=== PATIENT | male | born 1945 | race Caucasian/White ===

== ENCOUNTER → 2016-10-24 | Outpatient (CLI) | payer MEDICARE, BC ==
[2016-10-24 08:03] LABS: CH 33.5; CHCM 33.6; HDW 2.38; HGB 15.9 gm/dL (13.0-17.5); MCH 33.1 pg (25.0-35.0); MCHC 33.1 g/dL (31.0-37.0); MCV 100.1 fL (80.0-100.0); Mean Platelet Volume 6.9; RDW 12.6 % (11.5-15.5); WBC 6.3 k/uL (3.8-10.6)
[2016-10-24 08:13] LABS: ALT 35 U/L (21-72); AST 23 U/L (17-59); Alkaline Phosphatase 84 U/L (38-126); Anion Gap 8 mmol/L; Blood Urea Nitrogen 23 mg/dL (9-20); Calcium 9.3 mg/dL (8.4-10.2); Carbon Dioxide 24 mmol/L (22-30); Chloride 107 mmol/L (98-107); Cholesterol 193 mg/dL (<200); Glucose 97 mg/dL (74-99); HDL Cholesterol 76 mg/dL (40-60); Non-African American GFR(MDRD) >60 (>60 ml/min/1.73 sqM); Potassium 4.1 mmol/L (3.5-5.1); Sodium 139 mmol/L (137-145); Total Protein 6.8 g/dL (6.3-8.2); Triglycerides 64 mg/dL (<150)
== END | disposition home or self-care (01) ==
LOC: LABWHC1 07:30
PROVIDERS: ATTEND Internal Medicine
DX: I11.9 Hypertensive heart disease without heart failure (principal); I48.91 Unspecified atrial fibrillation; E78.2 Mixed hyperlipidemia
CPT/HCPCS: 36415; 80053; 80061; 84439; 84443; 85027

== ENCOUNTER 2016-11-04 12:04 | Emergency (ER) | payer MEDICARE, BC ==
[2016-11-04 12:19] VITALS: RESP 16
--- NOTE | 2016-11-04 14:02 | ED ---
General Adult HPI - General Chief complaint: Extremity Problem,Nontraumatic Stated complaint: Poss blood clot, Swollen leg Time Seen by Provider: 11/04/16 12:30 Source: patient, RN notes reviewed Mode of arrival: ambulatory Limitations: no limitations - History of Present Illness Initial comments: This is a 71-year-old male who presents emergency department stating that about a week ago he was kneeling on his left knee and he is on Xarelto Plavix. Patient states after that he started having some swelling to the anterior aspect of his kneecap patient states he felt as though there was fluid underneath it and as the week progressed the whole leg started to swell and he started getting bruising around his ankle both on the medial and lateral aspect of the medial aspect was much worse. Patient states he can bend the leg does not sore but feels tight because of the swelling he denies any blunt trauma to the leg. Patient denies any fevers. Patient denies any redness. Patient states that the leg feels tight but not particularly painful. - Related Data Home Medications Medication Instructions Recorded Confirmed HYDROcodone/APAP 7.5-325MG [[place] 1 tab PO Q6HR PRN 04/06/14 11/04/16 7.5] amLODIPine [Norvasc] 5 mg PO DAILY 04/06/14 11/04/16 Amiodarone [Cordarone] 200 mg PO DAILY 11/04/16 11/04/16 Aspirin EC [Ecotrin Low Dose] 81 mg PO DAILY 11/04/16 11/04/16 Enalapril [Vasotec] 20 mg PO DAILY 11/04/16 11/04/16 Mirabegron [Myrbetriq] 50 mg PO DAILY 11/04/16 11/04/16 Rivaroxaban [Xarelto] 15 mg PO QAM 11/04/16 11/04/16 Sertraline [Zoloft] 50 mg PO DAILY 11/04/16 11/04/16 Previous Rx's Medication Instructions Recorded Nitroglycerin Sl Tabs [Nitrostat] 0.4 mg SUBLINGUAL Q5M PRN #30 tab 05/13/14 Allergies Allergy/AdvReac Type Severity Reaction Status Date / Time No Known Allergies Allergy Verified 11/04/16 12:18 Review of Systems ROS Statement: Those systems with pertinent positive or pertinent negative responses have been documented in the HPI. ROS Other: All systems not noted in ROS Statement are negative. Past Medical History Past Medical History: Atrial Fibrillation, CVA/TIA, Hypertension Additional Past Medical History / Comment(s): 05/12/14 PT HERE TODAY FOR CARDIAC CATH AND STENT PLACEMENT IN LAD. OTHER HZ; PT HAS HX OF VTACH History of Any Multi-Drug Resistant Organisms: None Reported Past Surgical History: Heart Catheterization With Stent, Hernia Repair Additional Past Surgical History / Comment(s): 05/12/14 CARDIAC CATH WITH STENT TO LAD. Past Anesthesia/Blood Transfusion Reactions: No Reported Reaction Additional Past Anesthesia/Blood Transfusion Reaction / Comment(s): PT NEVER HAS HAD A BLOOD TRANSFUSION. Date of Last Stent Placement:: 05/12/14 Past Psychological History: No Psychological Hx Reported Additional Psychological History / Comment(s): PT LIVES AT HOME WITH OF 46YRS. HE IS RETIRED. HE IS INDEPENDENT. 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 Smoking Status: Former smoker Past Alcohol Use History: None Reported Past Drug Use History: None Reported - Past Family History Mother Family Medical History: Cancer Additional Family Medical History / Comment(s): COLON CA @ AGE 92 Father Family Medical History: CVA/TIA Additional Family Medical History / Comment(s): FATHER AT AGE 93YRS OF CVA General Exam - General Exam Comments Initial Comments: GENERAL Patient is well-developed and well-nourished. Patient is in mild distress. EYES Patient's pupils are equal and round. Extraocular motion is intact SKIN Unremarkable NEURO The patient is alert and oriented 3 PYSCH Patient has normal interpersonal interactions. MUSCULOSKELETAL Patient's left leg is edematous from the knee down there is ecchymosis to the medial lateral aspect of the lower foot patient also has slight edema of the whole leg. Patient is full range of motion at the knee there is no area of erythema. Patient has dorsal pedis pulses Limitations: no limitations Course Vital Signs 11/04/16 11/04/16 12:14 14:35 Temperature 98.4 F Pulse Rate 66 64 Respiratory 16 16 Rate Blood Pressure 126/75 165/77 O2 Sat by Pulse 95 100 Oximetry Medical Decision Making - Medical Decision Making Ultrasound showed no DVT. Hemoglobin is normal platelet is were normal and INR was normal. X-ray of the ankle and knee were normal as well - Lab Data Result diagrams: 11/04/16 14:10 Lab Results 11/04/16 11/04/16 Range/Units 14:10 14:10 WBC 8.1 (3.8-10.6) k/uL RBC 4.57 (4.30-5.90) m/uL Hgb 15.3 (13.0-17.5) gm/dL Hct 43.5 (39.0-53.0) % MCV 95.2 (80.0-100.0) fL MCH 33.4 (25.0-35.0) pg MCHC 35.1 (31.0-37.0) g/dL RDW 12.3 (11.5-15.5) % Plt Count 206 (150-450) k/uL Neutrophils % 78 % Lymphocytes % 13 % Monocytes % 7 % Eosinophils % 1 % Basophils % 0 % Neutrophils # 6.3 (1.3-7.7) k/uL Lymphocytes # 1.0 (1.0-4.8) k/uL Monocytes # 0.6 (0-1.0) k/uL Eosinophils # 0.1 (0-0.7) k/uL Basophils # 0.0 (0-0.2) k/uL PT 11.9 (9.0-12.0) sec INR 1.2 (<1.1) APTT 28.6 (22.0-30.0) sec Disposition Clinical Impression: Traumatic hematoma of knee Disposition: HOME SELF-CARE Condition: Good Instructions: Hematoma (ED) Additional Instructions: Patient should follow-up with primary medical care doctor. Patient stopped Xarelto the next few days. Patient should elevate leg above the heart. Referrals: Anderson Kumar MD [Primary Care Provider] - 1-2 days Time of Disposition: 15:14
[2016-11-04 14:31] LABS: Basophils % (A) 0 %; CH 33.5; CHCM 35.3; Eosinophils # (A) 0.1 k/uL (0-0.7); Eosinophils % (A) 1 %; HCT 43.5 % (39.0-53.0); HDW 2.57; HGB 15.3 gm/dL (13.0-17.5); Luc # (Auto) 0.17; Luc % (Auto) 2; Lymphocytes % (A) 13 %; MCH 33.4 pg (25.0-35.0); MCHC 35.1 g/dL (31.0-37.0); MCV 95.2 fL (80.0-100.0); Mean Platelet Volume 6.6; Monocytes # (A) 0.6 k/uL (0-1.0); Monocytes % (A) 7 %; Neutrophils # (A) 6.3 k/uL (1.3-7.7); Neutrophils % (A) 78 %; RBC 4.57 m/uL (4.30-5.90); RDW 12.3 % (11.5-15.5); WBC 8.1 k/uL (3.8-10.6); WBC (Perox) 7.82
--- NOTE | 2016-11-04 14:34 | XR ---
EXAMINATION TYPE: XR knee limited LT DATE OF EXAM: 11/04/2016 CLINICAL HISTORY: Pain and swelling. TECHNIQUE: Three views of the left knee are obtained. COMPARISON: None. FINDINGS: There is no acute fracture/dislocation evident in left knee. Mild to moderate joint space loss patellofemoral and medial tibiofemoral compartments is seen. Mild diffuse subcutaneous edema is present. Vascular calcification posterior soft tissue is noted. IMPRESSION: There is no acute fracture or dislocation in the left knee.
[2016-11-04 14:37] LABS: INR 1.2 (<1.1); Partial Thromboplastin Time 28.6 sec (22.0-30.0); Prothrombin Time 11.9 sec (9.0-12.0)
--- NOTE | 2016-11-04 14:42 | XR ---
Limited left ankle HISTORY: Swelling 3 views of the left ankle No comparisons There is soft tissue swelling. Joint space, alignment, bone mineralization is maintained. There is no fracture or dislocation. There are probable vascular calcifications present. IMPRESSION: No acute bony abnormality. Soft tissue swelling.
--- NOTE | 2016-11-04 15:15 | US ---
EXAMINATION TYPE: US venous doppler duplex LE LT DATE OF EXAM: 11/04/2016 3:00 PM COMPARISON: NONE CLINICAL HISTORY: Left lower leg and knee swelling for 2 days. SIDE PERFORMED: Left TECHNIQUE: The lower extremity deep venous system is examined utilizing real time linear array sonog zach with graded compression, doppler sonography and color-flow sonography. VESSELS IMAGED: External Iliac Vein (EIV) Common Femoral Vein Deep Femoral Vein Greater Saphenous Vein * Femoral Vein Popliteal Vein Small Saphenous Vein * Proximal Calf Veins (* superficial vessels) Left Leg: Negative for DVT Grayscale, color doppler, spectral doppler imaging performed of the deep veins of the lower extremiti es. There is normal flow, compressibility, vascular waveforms bilaterally. IMPRESSION: No ultrasound evidence for acute DVT in the left lower extremity.
[2016-11-04 15:34] VITALS: BP 164/77; PULSE 66; TEMP 98
== END 2016-11-04 15:34 | disposition home or self-care (01) ==
LOC: EC 12:04
DX: S80.02XA Contusion of left knee, initial encounter (principal); I48.91 Unspecified atrial fibrillation; I10 Essential (primary) hypertension; Z86.73 Personal history of transient ischemic attack (TIA), and cerebral infarction without residual deficits; Z87.891 Personal history of nicotine dependence; Z79.01 Long term (current) use of anticoagulants; Z79.82 Long term (current) use of aspirin; Z79.899 Other long term (current) drug therapy; X58.XXXA Exposure to other specified factors, initial encounter
CPT/HCPCS: 36415; 85025; 85610; 85730; 99284

== ENCOUNTER → 2017-02-17 | Outpatient (CLI) | payer MEDICARE, BC | END | disposition home or self-care (01) | LOC: LABWHC1 07:41 | PROVIDERS: ATTEND Internal Medicine Cardiovascular Disease | DX: Z00.01 Encounter for general adult medical examination with abnormal findings (principal); E78.2 Mixed hyperlipidemia | CPT/HCPCS: 36415; 80061; 82550; 84439; 84443; 84450; 84460 ==

== ENCOUNTER → 2017-10-15 | Outpatient (CLI) | payer MEDICARE, BC ==
[2017-10-15 07:39] LABS: HCT 48.2 % (39.0-53.0); HGB 16.3 gm/dL (13.0-17.5); MCH 32.5 pg (25.0-35.0); MCHC 33.9 g/dL (31.0-37.0); Mean Platelet Volume 7.1; Platelet Count 233 k/uL (150-450); RBC 5.02 m/uL (4.30-5.90); RDW 12.5 % (11.5-15.5); WBC 7.7 k/uL (3.8-10.6)
[2017-10-15 07:55] LABS: Albumin 4.3 g/dL (3.5-5.0); Calcium 9.7 mg/dL (8.4-10.2); Potassium 4.3 mmol/L (3.5-5.1); Total Bilirubin 1.6 mg/dL (0.2-1.3); Total Protein 6.8 g/dL (6.3-8.2)
[2017-10-15 08:07] LABS: T4, Free (Free Thyroxine) 2.05 ng/dL (0.78-2.19)
== END | disposition home or self-care (01) ==
LOC: LABWHC1 07:11
PROVIDERS: ATTEND Internal Medicine
DX: I48.0 Paroxysmal atrial fibrillation (principal); I11.9 Hypertensive heart disease without heart failure; I63.50 Cerebral infarction due to unspecified occlusion or stenosis of unspecified cerebral artery; I25.10 Atherosclerotic heart disease of native coronary artery without angina pectoris; Z79.899 Other long term (current) drug therapy
CPT/HCPCS: 36415; 80053; 80061; 84439; 84443; 85027

== ENCOUNTER → 2018-10-07 | Outpatient (CLI) | payer MEDICARE, BC ==
--- NOTE | 2018-10-09 07:36 | MR ---
EXAMINATION TYPE: MR Prostate wo/w con DATE OF EXAM: 10/07/2018 COMPARISON: None IMAGE QUALITY: Good. INDICATION: Prostate cancer PSA: 8.13 ng/ml on August 20, 2018 and 10.70 on April 27, 2018 Recent Biopsy and Date: May 22, 2018 Pathology Report (If Applicable): Right base [place] score 3+4 = 7 10% tumor 1 mm. Right apex Birdie score 3+4 = 7 tumor 20% and size 2 mm. Left lateral mid Birdie score 3+3 = 6 tumor size 20% and siz e 2 mm. Left mid [place] score 3+4 = 7, 10% tissue 1 mm size TECHNIQUE: Examination was performed using a 3T MRI without an endorectal coil. Multiparametric imaging was perf ormed with T2 mutliplanar sequences, axial diffusion weighted imaging and dynamic contrast enhanced i maging, utilizing 10 mL intravenous Gadavist gadolinium contrast. FINDINGS: There is no clinically significant cancer identified. PROSTATE VOLUME: 6.0 cm SI x 4.1 cm AP x 4.6 cm LR Vol= 56.60 cc PSA DENSITY: 6.792 ng/ml/cc Prostate gland is overall enlarged in size. Capsule is maintained. Seminal vesicles are felt within n ormal limits. No suspicious adjacent adenopathy is seen. Peripheral zone shows some indistinct hypointense areas on ADC mapping. No suspicious areas of at stoney st mild to moderate hypointense signal with increased signal on diffusion-weighted imaging is present . Transitional zone shows heterogeneity and enlargement with area of heterogeneous signal with obscured margins involving the anterior right base near the anterior fibromuscular stroma seen best coronal i mages 10 and 11 measuring subcentimeter in size without suspicious enhancement on dynamic postcontras t images. Bladder shows overall mild trabeculation without suspicious wall thickening. Visualized osseous struc tures are intact. No concerning pelvic fluid collection suspicious bowel dilatation is noted. IMPRESSION: A focus of clinically significant cancer is not identified. Highest Assessment Category: 3 MRI Stage: T 1C N0 M0 based on review of pelvic images. False negative rates for MRI range from 5-20% depending on risk profile. Assessment Categories: 1 ? Very low (clinically significant cancer is highly unlikely to be present) 2 ? Low (clinically significant cancer is unlikely to be present) 3 ? Intermediate (the presence of clinically significant cancer is equivocal) 4 ? High (clinically significant cancer is likely to be present) 5 ? Very high (clinically significant cancer is highly likely to be present)
== END ==
LOC: RADMRIMAIN 07:13
PROVIDERS: ATTEND Radiology Radiation Oncology
DX: Z08 Encounter for follow-up examination after completed treatment for malignant neoplasm (principal); Z85.46 Personal history of malignant neoplasm of prostate; Z87.891 Personal history of nicotine dependence
CPT/HCPCS: 72197; A9585

== ENCOUNTER → 2018-10-30 | Outpatient (CLI) | payer MEDICARE, BC ==
[2018-10-30 08:32] LABS: HCT 46.4 % (39.0-53.0); HGB 15.1 gm/dL (13.0-17.5); MCH 31.2 pg (25.0-35.0); MCHC 32.6 g/dL (31.0-37.0); MCV 95.6 fL (80.0-100.0); Mean Platelet Volume 7.2; Platelet Count 219 k/uL (150-450); RBC 4.85 m/uL (4.30-5.90); RDW 13.9 % (11.5-15.5); WBC 7.2 k/uL (3.8-10.6)
[2018-10-30 17:25] LABS: Albumin 4.1 g/dL (3.80-4.90); Albumin/Globulin Ratio 2.16 (1.60-3.17); Anion Gap 4.2 mmol/L (4.00-12.00); Calcium 9.2 mg/dL (8.7-10.3); Carbon Dioxide 27.8 mmol/L (21.6-31.8); Globulin 1.9 g/dL (1.6-3.3); Potassium 4.2 mmol/L (3.5-5.5); Total Bilirubin 0.9 mg/dL (0.2-1.2)
[2018-10-30 17:32] LABS: T4, Free (Free Thyroxine) 1.4 ng/dL (0.80-1.80)
== END | disposition home or self-care (01) ==
LOC: LABWHC1 07:21
PROVIDERS: ATTEND Internal Medicine
DX: Z00.00 Encounter for general adult medical examination without abnormal findings (principal); K21.0 Gastro-esophageal reflux disease with esophagitis; E78.2 Mixed hyperlipidemia; I11.9 Hypertensive heart disease without heart failure; I63.50 Cerebral infarction due to unspecified occlusion or stenosis of unspecified cerebral artery
CPT/HCPCS: 36415; 80053; 80061; 84439; 84443; 85027

== ENCOUNTER → 2018-12-09 | Outpatient (CLI) | payer MEDICARE, BC ==
[2018-12-09 10:58] LABS: Basophils % (A) 0 %; Eosinophils # (A) 0.1 k/uL (0-0.7); Eosinophils % (A) 2 %; HGB 15.2 gm/dL (13.0-17.5); Lymphocytes % (A) 17 %; MCH 32.1 pg (25.0-35.0); MCHC 33.1 g/dL (31.0-37.0); MCV 97.1 fL (80.0-100.0); Mean Platelet Volume 6.8; Monocytes # (A) 0.6 k/uL (0-1.0); Monocytes % (A) 11 %; Neutrophils # (A) 3.6 k/uL (1.3-7.7); Neutrophils % (A) 66 %; Platelet Count 205 k/uL (150-450); RBC 4.73 m/uL (4.30-5.90); RDW 12.9 % (11.5-15.5); WBC 5.5 k/uL (3.8-10.6)
[2018-12-09 11:08] LABS: Calcium 9.4 mg/dL (8.4-10.2); Potassium 4.3 mmol/L (3.5-5.1)
== END | disposition home or self-care (01) ==
LOC: LABPAT 09:57
PROVIDERS: ATTEND Urology
DX: Z01.812 Encounter for preprocedural laboratory examination (principal); C61 Malignant neoplasm of prostate; Z79.899 Other long term (current) drug therapy
CPT/HCPCS: 36415; 80048; 85025

== ENCOUNTER 2018-12-11 13:25 | Day surgery (SDC) | payer MEDICARE, BC ==
--- NOTE | 2018-11-18 18:21 | P.GSHP ---
History of Present Illness H&P Date: 11/18/18 Chief Complaint: Prostate cancer The patient is a 73-year-old white male with recently diagnosed prostate cancer. His PSA level was most recently 8.13, though was previously higher. 4 of 12 prostate biopsies have shown [place] 6/7 adenocarcinoma. He has elected to be treated with IMRT. He now comes for placement of gold fiducial markers and SpaceOAR hydrogel implant. - Genitourinary (Male) Genitourinary: Reports urinary frequency Past Medical History Past Medical History: Atrial Fibrillation, CVA/TIA, Hypertension Additional Past Medical History / Comment(s): 05/12/14 PT HERE TODAY FOR CARDIAC CATH AND STENT PLACEMENT IN LAD. OTHER HZ; PT HAS HX OF VTACH History of Any Multi-Drug Resistant Organisms: None Reported Past Surgical History: Heart Catheterization With Stent, Hernia Repair Additional Past Surgical History / Comment(s): 05/12/14 CARDIAC CATH WITH STENT TO LAD. Past Anesthesia/Blood Transfusion Reactions: No Reported Reaction Additional Past Anesthesia/Blood Transfusion Reaction / Comment(s): PT NEVER HAS HAD A BLOOD TRANSFUSION. Date of Last Stent Placement:: 05/12/14 Past Psychological History: No Psychological Hx Reported Additional Psychological History / Comment(s): PT LIVES AT HOME WITH OF 46YRS. HE IS RETIRED. HE IS INDEPENDENT. 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 Smoking Status: Former smoker Past Alcohol Use History: None Reported Past Drug Use History: None Reported - Past Family History Mother Family Medical History: Cancer Additional Family Medical History / Comment(s): COLON CA @ AGE 92 Father Family Medical History: CVA/TIA Additional Family Medical History / Comment(s): FATHER AT AGE 93YRS OF CVA Medications and Allergies Home Medications Medication Instructions Recorded Confirmed Type HYDROcodone/APAP 7.5-325MG [[place] 1 tab PO Q6HR PRN 04/06/14 11/04/16 History 7.5] amLODIPine [Norvasc] 5 mg PO DAILY 04/06/14 11/04/16 History Nitroglycerin Sl Tabs [Nitrostat] 0.4 mg SUBLINGUAL Q5M PRN #30 tab 05/13/14 11/04/16 Rx Amiodarone [Cordarone] 200 mg PO DAILY 11/04/16 11/04/16 History Aspirin EC [Ecotrin Low Dose] 81 mg PO DAILY 11/04/16 11/04/16 History Enalapril [Vasotec] 20 mg PO DAILY 11/04/16 11/04/16 History Mirabegron [Myrbetriq] 50 mg PO DAILY 11/04/16 11/04/16 History Rivaroxaban [Xarelto] 15 mg PO QAM 11/04/16 11/04/16 History Sertraline [Zoloft] 50 mg PO DAILY 11/04/16 11/04/16 History Allergies Allergy/AdvReac Type Severity Reaction Status Date / Time No Known Allergies Allergy Verified 11/04/16 12:18 Surgical - Exam - General well developed, well nourished, no distress - Respiratory normal respiratory effort, clear to auscultation - Cardiovascular Rhythm: regular Abnormal Heart Sounds: no systolic murmur, no diastolic murmur, no rub, no S3 Gallop, no S4 Gallop, no click, no other - Psychiatric oriented to time, oriented to person, oriented to place, speech is normal, memory intact Assessment and Plan (1) Adenocarcinoma of prostate Status: Acute Code(s): C61 - MALIGNANT NEOPLASM OF PROSTATE SNOMED Code(s): 399208254 Plan: The patient will undergo placement of fiducial gold markers and SpaceOAR hydrogel implant. The procedure has been reviewed in detail with the patient, including the rationale and potential risks associated with this. Risks include anesthesia, bleeding, infection, and rectal perforation.
[2018-12-09 13:15] VITALS: BMI 27.2
[~2018-12-11 13:25] MED LIST: HYDROmorphone 0.5 MG/0.5 ML SYRINGE IVP PRN; MIDAZOLAM 2 MG/2 ML VIAL IV PRN
[2018-12-11] MEDS: LACTATED RINGERS 1,000 ML IV SCH ×2 (13:34→13:44)
[2018-12-11 13:44] VITALS: RESP 16; TEMP 98.5
[2018-12-11] MEDS ORDERED: LIDOCAINE 2% (PF) 20 MG/ML 10 ML AMP SQ ONE ×2 (14:00)
[2018-12-11 15:27] VITALS: PULSE 59
--- NOTE | 2018-12-11 15:29 | P.OP ---
Date of Procedure: 12/11/18 Preoperative Diagnosis: Adenocarcinoma of the prostate Postoperative Diagnosis: Same Procedure(s) Performed: SpaceOAR Hydrogel Implant with Placement of Gold Fiducial Markers. Anesthesia: MAC Surgeon: Anthony Cottrell Estimated Blood Loss (ml): 5 IV fluids (ml): 800 Pathology: none sent Condition: stable Disposition: PACU Indications for Procedure: The patient is a 73-year-old white male with recently diagnosed prostate cancer. His PSA level was most recently 8.13, though was previously higher. 4 of 12 prostate biopsies have shown [place] 6/7 adenocarcinoma. He has elected to be treated with IMRT. He now comes for placement of gold fiducial markers and SpaceOAR hydrogel implant. Operative Findings: Appropriate placement of gold fiducial markers. Description of Procedure: The patient was taken to the operating room and placed in the dorsolithotomy position, with his legs supported in Edni stirrups. The external genitalia was prepped and draped sterilely. Using a spinal needle, 1% lidocaine without epinephrine was injected subcutaneously within the perineum in the midline. The Bruel and Kjaer transrectal ultrasound probe was placed intrarectally. The prostate was imaged. The probe was then placed within the stabilizing stand. The spinal needle was then advanced under ultrasonic guidance to the level of the urogenital diaphragm, and lidocaine was used to infiltrate the tissues as the needle was withdrawn. Under ultrasonic guidance, using both axial and sagittal imaging, needles containing the gold fiducial markers were advanced to the base and apex of the left prostatic lobe, and the markers were implanted as the needles were withdrawn. A third marker was implanted posteriorly within the right prostatic lobe at the mid gland level, using an identical technique. Next, the SpaceOAR needle was passed through the midline of the perineum, 1-2 cm anterior to the anal opening. The needle was slowly advanced under ultrasonic guidance until the needle tip was located within the fat plane between the prostate and rectum, at the level of the mid prostate gland. The needle was confirmed to be midline on the axial imaging. A small amount of normal saline was injected for hydrodissection. Next, the SpaceOAR components were mixed and loaded into the Y connector per protocol. The Y connector was then connected to the needle, and the components were injected slowly over a course of approximately 12 seconds. Significant distance was created between the prostate and rectum, as desired. It should be noted that at no point was there any concern of rectal perforation. The needle was withdrawn, as well as the transrectal ultrasound probe, and the procedure was terminated. The patient tolerated the procedure well and was taken to the recovery room in stable condition.
[2018-12-11 15:44] VITALS: BP 133/75
== END 2018-12-11 15:56 | disposition home or self-care (01) ==
LOC: OR 13:25
PROVIDERS: ATTEND Urology
DX: C61 Malignant neoplasm of prostate (principal); I48.91 Unspecified atrial fibrillation; Z86.73 Personal history of transient ischemic attack (TIA), and cerebral infarction without residual deficits; I10 Essential (primary) hypertension; Z95.5 Presence of coronary angioplasty implant and graft; Z87.891 Personal history of nicotine dependence; Z80.0 Family history of malignant neoplasm of digestive organs; Z79.01 Long term (current) use of anticoagulants; Z79.82 Long term (current) use of aspirin; Z79.899 Other long term (current) drug therapy; Z79.891 Long term (current) use of opiate analgesic
CPT/HCPCS: 55876; 55874; C1713; J2001; J0690

== ENCOUNTER → 2018-12-17 | Outpatient (CLI) | payer MEDICARE, BC | END | disposition home or self-care (01) | LOC: LABWHC1 09:32 | PROVIDERS: ATTEND Radiology Radiation Oncology | DX: Z00.00 Encounter for general adult medical examination without abnormal findings (principal); Z87.891 Personal history of nicotine dependence; C61 Malignant neoplasm of prostate | CPT/HCPCS: 36415; 84153 ==

== ENCOUNTER 2019-03-01 14:09 | Inpatient (IN) | payer MEDICARE, BC ==
[2019-03-01] MEDS ORDERED: SODIUM CHLORIDE 0.9% 1,000 ML IV STA (14:45)
[2019-03-01] MEDS ORDERED: DIPHENOX-ATROP 2.5-0.025 MG 1 EACH TAB PO STA (14:45)
--- NOTE | 2019-03-01 14:47 | ED ---
General Adult HPI - General Chief complaint: Recheck/Abnormal Lab/Rx Stated complaint: abn labs Time Seen by Provider: 03/01/19 14:15 Source: patient, RN notes reviewed Mode of arrival: ambulatory Limitations: no limitations - History of Present Illness Initial comments: This a 73-year-old male who presents emergency department stating that he has had diarrhea for 2 days. Patient states he recently had radiation for prostate cancer. Patient states the diarrhea started yesterday and continues today. Patient states she went to the urgent care and Tylenol and they told him after they gave him saline and that he needed to be followed up at the emergency department. Patient denies any pain. Patient denies any fever chills. Patient denies any blood in his stool. Patient states ever since he had the radiation he does have a little dysuria but he is been told he has had no infection. Patient denies any back pain. Patient denies any other problems at this time. Patient denies any recent antibiotic use - Related Data Home Medications Medication Instructions Recorded Confirmed amLODIPine [Norvasc] 5 mg PO DAILY 04/06/14 03/01/19 Amiodarone [Cordarone] 200 mg PO DAILY 11/04/16 03/01/19 Aspirin EC [Ecotrin Low Dose] 81 mg PO DAILY 11/04/16 03/01/19 Enalapril [Vasotec] 20 mg PO DAILY 11/04/16 03/01/19 Rivaroxaban [Xarelto] 15 mg PO QAM 11/04/16 03/01/19 Atorvastatin [Lipitor] 80 mg PO DAILY 03/01/19 03/01/19 traMADol HCL 50 mg PO BID PRN 03/01/19 03/01/19 Allergies Allergy/AdvReac Type Severity Reaction Status Date / Time No Known Allergies Allergy Verified 03/01/19 14:40 Review of Systems ROS Statement: Those systems with pertinent positive or pertinent negative responses have been documented in the HPI. ROS Other: All systems not noted in ROS Statement are negative. Past Medical History Past Medical History: Atrial Fibrillation, CVA/TIA, Hypertension Additional Past Medical History / Comment(s): PT HAS HX OF VTACH, prostate ca - radiation last 3 weeks ago History of Any Multi-Drug Resistant Organisms: None Reported Past Surgical History: Heart Catheterization With Stent, Hernia Repair Additional Past Surgical History / Comment(s): STENT TO LAD. Past Anesthesia/Blood Transfusion Reactions: No Reported Reaction Additional Past Anesthesia/Blood Transfusion Reaction / Comment(s): PT NEVER HAS HAD A BLOOD TRANSFUSION. Date of Last Stent Placement:: 05/12/14 Past Psychological History: No Psychological Hx Reported Smoking Status: Former smoker Past Alcohol Use History: None Reported Past Drug Use History: None Reported - Past Family History Mother Family Medical History: Cancer Additional Family Medical History / Comment(s): COLON CA @ AGE 92 Father Family Medical History: CVA/TIA Additional Family Medical History / Comment(s): FATHER AT AGE 93YRS OF CVA General Exam - General Exam Comments Initial Comments: GENERAL: Patient is well-developed and well-nourished. Patient is nontoxic and well- hydrated and is in mild distress. ENT: Neck is soft and supple. No significant lymphadenopathy is noted. Oropharynx is clear. Moist mucous membranes. Neck has full range of motion without eliciting any pain. EYES: The sclera were anicteric and conjunctiva were pink and moist. Extraocular movements were intact and pupils were equal round and reactive to light. Eyelids were unremarkable. PULMONARY: Unlabored respirations. Good breath sounds bilaterally. No audible rales rhonchi or wheezing was noted. CARDIOVASCULAR: There is a regular rate and rhythm without any murmurs gallops or rubs. ABDOMEN: Soft and nontender with normal bowel sounds. No palpable organomegaly was noted. There is no palpable pulsatile mass. SKIN: Skin is clear with no lesions or rashes and otherwise unremarkable. NEUROLOGIC: Patient is alert and oriented x3. Cranial nerves II through XII are grossly intact. Motor and sensory are also intact. Normal speech, volume and content. Symmetrical smile. MUSCULOSKELETAL: Normal extremities with adequate strength and full range of motion. No lower extremity swelling or edema. No calf tenderness. LYMPHATICS: No significant lymphadenopathy is noted PSYCHIATRIC: Normal psychiatric evaluation. Limitations: no limitations Course Vital Signs 03/01/19 03/01/19 03/01/19 14:13 15:20 18:00 Temperature 97.9 F 102.7 F H Pulse Rate 81 98 Pulse Rate [ 83 Sitting] Pulse Rate [ 86 Standing] Pulse Rate [ 77 Supine] Respiratory 18 20 20 Rate Blood Pressure 108/56 151/70 Blood Pressure 112/67 [Sitting] Blood Pressure 98/62 [Standing] Blood Pressure 108/62 [Supine] O2 Sat by Pulse 98 99 98 Oximetry 03/01/19 19:00 Temperature Pulse Rate 98 Pulse Rate [ Sitting] Pulse Rate [ Standing] Pulse Rate [ Supine] Respiratory 22 Rate Blood Pressure 110/58 Blood Pressure [Sitting] Blood Pressure [Standing] Blood Pressure [Supine] O2 Sat by Pulse 98 Oximetry Medical Decision Making - Medical Decision Making I went into the room to talk to the patient about his lab values. Patient was shaking under 3 blankets. I took his temperature was 102.8. After I gave the patient Motrin time he was feeling better. I'll start the patient on Levaquin secondary to his infectious diarrhea. I spoke with Dr. Iniguez he was in agreement with this were keeping the patient overnight and hydrating and keeping his temperature down and reevaluated the patient in the morning. I repalpated the patient's abdomen he had no tenderness whatsoever. - Lab Data Result diagrams: 03/01/19 14:55 03/01/19 14:55 Lab Results 03/01/19 03/01/19 03/01/19 Range/Units 14:55 14:55 15:10 WBC 12.3 H (3.8-10.6) k/uL RBC 4.26 L (4.30-5.90) m/uL Hgb 14.1 (13.0-17.5) gm/dL Hct 40.2 (39.0-53.0) % MCV 94.4 (80.0-100.0) fL MCH 33.1 (25.0-35.0) pg MCHC 35.1 (31.0-37.0) g/dL RDW 12.7 (11.5-15.5) % Plt Count 164 (150-450) k/uL Neutrophils % 93 % Lymphocytes % 2 % Monocytes % 4 % Eosinophils % 1 % Basophils % 0 % Neutrophils # 11.4 H (1.3-7.7) k/uL Lymphocytes # 0.2 L (1.0-4.8) k/uL Monocytes # 0.5 (0-1.0) k/uL Eosinophils # 0.1 (0-0.7) k/uL Basophils # 0.0 (0-0.2) k/uL Sodium 132 L (137-145) mmol/L Potassium 3.6 (3.5-5.1) mmol/L Chloride 103 (98-107) mmol/L Carbon Dioxide 20 L (22-30) mmol/L Anion Gap 9 mmol/L BUN 22 H (9-20) mg/dL Creatinine 1.22 (0.66-1.25) mg/dL Est GFR (CKD-EPI)AfAm 68 (>60 ml/min/1.73 sqM) Est GFR (CKD-EPI)NonAf 59 (>60 ml/min/1.73 sqM) Glucose 111 H (74-99) mg/dL Plasma Lactic Acid [place] (0.7-2.0) mmol/L Calcium 8.4 (8.4-10.2) mg/dL Total Bilirubin 1.2 (0.2-1.3) mg/dL AST 26 (17-59) U/L ALT 38 (21-72) U/L Alkaline Phosphatase 64 (38-126) U/L Total Protein 5.3 L (6.3-8.2) g/dL Albumin 2.9 L (3.5-5.0) g/dL Amylase <30 L (30-110) U/L Lipase 15 L (23-300) U/L Urine Color Yellow Urine Appearance Cloudy (Clear) Urine pH 5.5 (5.0-8.0) Ur Specific [place] 1.024 (1.001-1.035) Urine Protein 1+ H (Negative) Urine Glucose (UA) Negative (Negative) Urine Ketones Negative (Negative) Urine Blood Moderate H (Negative) Urine Nitrite Negative (Negative) Urine Bilirubin Negative (Negative) Urine Urobilinogen <2.0 (<2.0) mg/dL Ur Leukocyte Esterase Negative (Negative) Urine WBC 2 (0-5) /hpf Urine Bacteria Rare H (None) /hpf Hyaline Casts 32 H (0-2) /lpf Urine Mucus Many H (None) /hpf 03/01/19 Range/Units 18:32 WBC (3.8-10.6) k/uL RBC (4.30-5.90) m/uL Hgb (13.0-17.5) gm/dL Hct (39.0-53.0) % MCV (80.0-100.0) fL MCH (25.0-35.0) pg MCHC (31.0-37.0) g/dL RDW (11.5-15.5) % Plt Count (150-450) k/uL Neutrophils % % Lymphocytes % % Monocytes % % Eosinophils % % Basophils % % Neutrophils # (1.3-7.7) k/uL Lymphocytes # (1.0-4.8) k/uL Monocytes # (0-1.0) k/uL Eosinophils # (0-0.7) k/uL Basophils # (0-0.2) k/uL Sodium (137-145) mmol/L Potassium (3.5-5.1) mmol/L Chloride (98-107) mmol/L Carbon Dioxide (22-30) mmol/L Anion Gap mmol/L BUN (9-20) mg/dL Creatinine (0.66-1.25) mg/dL Est GFR (CKD-EPI)AfAm (>60 ml/min/1.73 sqM) Est GFR (CKD-EPI)NonAf (>60 ml/min/1.73 sqM) Glucose (74-99) mg/dL Plasma Lactic Acid [place] 2.7 H* (0.7-2.0) mmol/L Calcium (8.4-10.2) mg/dL Total Bilirubin (0.2-1.3) mg/dL AST (17-59) U/L ALT (21-72) U/L Alkaline Phosphatase (38-126) U/L Total Protein (6.3-8.2) g/dL Albumin (3.5-5.0) g/dL Amylase (30-110) U/L Lipase (23-300) U/L Urine Color Urine Appearance (Clear) Urine pH (5.0-8.0) Ur Specific [place] (1.001-1.035) Urine Protein (Negative) Urine Glucose (UA) (Negative) Urine Ketones (Negative) Urine Blood (Negative) Urine Nitrite (Negative) Urine Bilirubin (Negative) Urine Urobilinogen (<2.0) mg/dL Ur Leukocyte Esterase (Negative) Urine WBC (0-5) /hpf Urine Bacteria (None) /hpf Hyaline Casts (0-2) /lpf Urine Mucus (None) /hpf Disposition Clinical Impression: Infectious diarrhea Disposition: ADMITTED IP TO THIS [facility] Time of Disposition: 20:31
[2019-03-01 15:15] LABS: Basophils % (A) 0 %; Eosinophils # (A) 0.1 k/uL (0-0.7); Eosinophils % (A) 1 %; HCT 40.2 % (39.0-53.0); HGB 14.1 gm/dL (13.0-17.5); Lymphocytes # (A) 0.2 k/uL (1.0-4.8); Lymphocytes % (A) 2 %; MCH 33.1 pg (25.0-35.0); MCHC 35.1 g/dL (31.0-37.0); MCV 94.4 fL (80.0-100.0); Mean Platelet Volume 6.5; Monocytes # (A) 0.5 k/uL (0-1.0); Monocytes % (A) 4 %; Neutrophils # (A) 11.4 k/uL (1.3-7.7); Neutrophils % (A) 93 %; Platelet Count 164 k/uL (150-450); RBC 4.26 m/uL (4.30-5.90); RDW 12.7 % (11.5-15.5); WBC 12.3 k/uL (3.8-10.6)
[2019-03-01 15:18] LABS: ALT 38 U/L (21-72); AST 26 U/L (17-59); African American GFR (CKD) 68 (>60 ml/min/1.73 sqM); Albumin 2.9 g/dL (3.5-5.0); Alkaline Phosphatase 64 U/L (38-126); Amylase <30 U/L (30-110); Anion Gap 9 mmol/L; Blood Urea Nitrogen 22 mg/dL (9-20); Calcium 8.4 mg/dL (8.4-10.2); Carbon Dioxide 20 mmol/L (22-30); Chloride 103 mmol/L (98-107); Glucose 111 mg/dL (74-99); Potassium 3.6 mmol/L (3.5-5.1); Sodium 132 mmol/L (137-145); Total Bilirubin 1.2 mg/dL (0.2-1.3); Total Protein 5.3 g/dL (6.3-8.2)
[2019-03-01 15:25] LABS: Appearance,Urine Cloudy (Clear); Bacteria,Urine Rare /hpf; Bilirubin,Urine Negative (Negative); Blood,Urine Moderate (Negative); Color,Urine Yellow; Glucose,Urine (UA) Negative (Negative); Hyaline Casts,Urine 32 /lpf (0-2); Ketones,Urine Negative (Negative); Leukocyte Esterase,Urine Negative (Negative); Mucus,Urine Many /hpf; Nitrite,Urine Negative (Negative); PH, Urine 5.5 (5.0-8.0); Protein,Urine 1+ (Negative); Specific Gravity,Urine 1.024 (1.001-1.035); Urobilinogen,Urine <2.0 mg/dL (<2.0); WBC,Urine 2 /hpf (0-5)
[2019-03-01] MEDS ORDERED: ACETAMINOPHEN TAB 500 MG TAB PO STA (17:58)
[2019-03-01] MEDS ORDERED: IBUPROFEN 600 MG TAB PO STA (17:58)
[2019-03-01] MEDS ORDERED: LEVOFLOXACIN 750MG-D5W PMX 750 MG in DEXTROSE/WATER 1 150ML.BAG IVPB STA (18:11)
[2019-03-01] MEDS ORDERED: SODIUM CHLORIDE 0.9% 1,000 ML IV ONE ×2 (20:31→21:24)
[2019-03-01] MEDS ORDERED: ACETAMINOPHEN TAB 325 MG TAB PO PRN (20:32)
[2019-03-01] MEDS ORDERED: traMADol HCL 50 MG TABLET PO PRN (21:36)
--- NOTE | 2019-03-01 23:15 | XR ---
EXAMINATION TYPE: XR abdomen 2V DATE OF EXAM: 03/01/2019 COMPARISON: NONE HISTORY: Diarrhea TECHNIQUE: 3 views FINDINGS: There is some gas-filled distended small bowel in the mid abdomen. There is no sign of free air. Lung bases are clear of consolidation. There are no pathologic calcifications over the kidneys. Large bowel gas pattern is fairly normal. IMPRESSION: There is evidence for small bowel ileus.
[2019-03-02] MEDS: IBUPROFEN 600 MG TAB PO SCH ×4 (00:03→17:39)
[2019-03-02 06:25] LABS: Basophils % (A) 0 %; Eosinophils % (A) 0 %; HGB 12.8 gm/dL (13.0-17.5); Lymphocytes # (A) 0.3 k/uL (1.0-4.8); Lymphocytes % (A) 5 %; MCH 33.6 pg (25.0-35.0); MCHC 35.4 g/dL (31.0-37.0); MCV 94.8 fL (80.0-100.0); Mean Platelet Volume 6.7; Monocytes # (A) 0.4 k/uL (0-1.0); Monocytes % (A) 8 %; Neutrophils # (A) 5.1 k/uL (1.3-7.7); Neutrophils % (A) 86 %; Platelet Count 135 k/uL (150-450); RDW 12.7 % (11.5-15.5); WBC 5.9 k/uL (3.8-10.6)
[2019-03-02 06:58] LABS: Calcium 8.4 mg/dL (8.4-10.2); Potassium 3.4 mmol/L (3.5-5.1)
[2019-03-02] MEDS: RIVAROXABAN 15 MG TAB PO SCH (08:08)
[2019-03-02] MEDS: AMIODARONE 200 MG TAB PO SCH (08:08)
[2019-03-02] MEDS: ATORVASTATIN 80 MG TAB PO SCH (08:08)
[2019-03-02] MEDS ORDERED: amLODIPine 5 MG TAB PO SCH (09:00)
[2019-03-02] MEDS ORDERED: ASPIRIN 81 MG PO SCH (09:00)
[2019-03-02] MEDS ORDERED: LISINOPRIL 20 MG TAB PO SCH (09:00)
[2019-03-02] MEDS ORDERED: Potassium Replacement Protocol 1 EACH MISC MISCELLANE PRN (09:12)
[2019-03-02] MEDS: POTASSIUM CHLORIDE ER 20 MEQ TAB.ER PO SCH ×2 (09:25→10:51)
--- NOTE | 2019-03-02 14:45 | P.CRDCN ---
History of Present Illness History of present illness: This is a pleasant 73-year-old male past medical history significant for paroxysmal atrial fibrillation on long-term anticoagulation, coronary artery disease status post stent placement to the mid LAD in 2013, nonsustained ventricular tachycardia, dyslipidemia, hypertension and prostate cancer status post radiation therapy. He states he had his last round of radiation approxim ately 3 weeks ago. He presented to the hospital after a 2 day episode of persistent diarrhea. We have been asked to see him in consultation secondary to long-term anticoagulation and evidence of blood in the urine and stool. The patient denies seeing any bright red or black discoloration to his stool. He denies chest pain, shortness of breath, dizziness, palpitations. He denies any active bleeding. He is seen and examined sitting up in bed in no acute distress. No EKG obtained on admission. Current cardiac medications include Xarelto 15 mg daily, lisinopril 20 mg daily, atorvastatin 80 mg daily, aspirin 81 mg daily, amlodipine 5 mg daily and amiodarone 200 mg daily. Laboratory data reviewed, WBC 5.9, hemoglobin 12.8 down from 14.1 on admission, platelets 135, sodium 134, potassium 3.4, creatinine 1.24, lactic acid 2.7 down to 0.8. At the time of my exam: CONSTITUTIONAL: Denies fever. Denies chills. EYES: Denies blurred vision. Denies vision changes. Denies eye pain. EARS, NOSE, MOUTH & THROAT: Denies headache. Denies sore throat. Denies ear pain. CARDIOVASCULAR: Denies chest pain. Denies shortness of breath. Denies orthopnea. Denies PND. Denies palpitations. RESPIRATORY: Denies cough. GASTROINTESTINAL: Denies abdominal pain. Complains of diarrhea. Denies constipation. Denies nausea. Denies vomiting. MUSCULOSKELETAL: Denies myalgias. INTEGUMENTARY: Denies pruitis. Denies rash. NEUROLOGIC: Denies numbness. Denies tingling. Denies weakness. PSYCHIATRIC: Denies anxiety. Denies depression. ENDOCRINE: Denies fatigue. Denies weight change. Denies polydipsia. Denies poly urina. GENITOURINARY: Denies burning, hematuria or urgency with micturation. HEMATOLOGIC: Denies history of anemia. Denies bleeding. Blood pressure 136/75 heart rate 74 afebrile maintaining oxygen saturation on room air GENERAL: This is a 73-year-old male in no apparent distress at the t trina of my examination. HEENT: Head is atraumatic, normocephalic. Pupils are equal, round. Sclerae an icteric. Conjunctivae are clear. Mucous membranes of the mouth are moist. Neck is supple. There is no jugular venous distention. No carotid bruit is heard. LUNGS: Clear to auscultation no wheezes, rales or rhonchi. No chest wall tenderness is noted on palpation or with deep breathing. HEART: Regular rate and rhythm without murmurs, rubs or gallops. S1 and S2 heard. ABDOMEN: Soft, nontender. Bowel sounds are heard. No organomegaly noted. EXTREMITIES: No evidence of peripheral edema and no calf tenderness noted. VASCULAR: Radial and dorsalis pedis pulses palpated, no evidence of clubbing. NEUROLOGIC: Patient is awake, alert and oriented x3. ASSESSMENT Persistent diarrhea status post radiation for prostate cancer Positive occult blood and blood in the urine. Change in hemoglobin likely d ilutional secondary to fluid administration. Paroxysmal atrial fibrillation on long-term anticoagulation History of coronary artery disease status post stent placement to the mid LAD 2013 Nonsustained ventricular tachycardia Dyslipidemia Hypertension PLAN Continue Xarelto and discontinue aspirin. Follow hemoglobin and the morning. If his hemoglobin remains stable and there is no active bleeding continue Xarelto as previously ordered on discharge. Continue lisinopril, atorvastatin, amlodipine and amiodarone as previously ordered. Follow-up with Dr. Jackson upon discharge. Thank you kindly for this consultation. Nurse Practitioner note has been reviewed, I agree with a documented findings and plan of care. Patient was seen and examined. Past Medical History Past Medical History: Atrial Fibrillation, CVA/TIA, Hypertension Additional Past Medical History / Comment(s): PT HAS HX OF VTACH, prostate ca - radiation last 3 weeks ago History of Any Multi-Drug Resistant Organisms: None Reported Past Surgical History: Heart Catheterization With Stent, Hernia Repair Additional Past Surgical History / Comment(s): STENT TO LAD. Past Anesthesia/Blood Transfusion Reactions: No Reported Reaction Additional Past Anesthesia/Blood Transfusion Reaction / Comment(s): PT NEVER HAS HAD A BLOOD TRANSFUSION. Date of Last Stent Placement:: 05/12/14 Smoking Status: Former smoker - Past Family History Mother Family Medical History: Cancer Additional Family Medical History / Comment(s): COLON CA @ AGE 92 Father Family Medical History: CVA/TIA Additional Family Medical History / Comment(s): FATHER AT AGE 93YRS OF CVA Medications and Allergies Home Medications Medication Instructions Recorded Confirmed Type amLODIPine [Norvasc] 5 mg PO DAILY 04/06/14 03/01/19 History Amiodarone [Cordarone] 200 mg PO DAILY 11/04/16 03/01/19 History Aspirin EC [Ecotrin Low Dose] 81 mg PO DAILY 11/04/16 03/01/19 History Enalapril [Vasotec] 20 mg PO DAILY 11/04/16 03/01/19 History Rivaroxaban [Xarelto] 15 mg PO QAM 11/04/16 03/01/19 History Atorvastatin [Lipitor] 80 mg PO DAILY 03/01/19 03/01/19 History traMADol HCL 50 mg PO BID PRN 03/01/19 03/01/19 History Allergies Allergy/AdvReac Type Severity Reaction Status Date / Time No Known Allergies Allergy Verified 03/01/19 14:40 Physical Exam Vitals: Vital Signs Temp Pulse Pulse Pulse Pulse Resp BP 03/02/19 07:00 97.6 F 74 15 03/02/19 01:18 03/02/19 00:00 98.2 F 66 16 03/01/19 23:32 03/01/19 22:58 98.5 F 63 03/01/19 21:45 97.0 F L 65 19 03/01/19 21:15 99.3 F 64 18 96/58 03/01/19 19:00 98 22 110/58 03/01/19 18:00 102.7 F H 98 20 151/70 03/01/19 15:20 83 86 77 20 BP BP BP Pulse Ox 03/02/19 07:00 136/75 97 03/02/19 01:18 119/62 03/02/19 00:00 97/52 95 03/01/19 23:32 90/47 03/01/19 22:58 89/52 03/01/19 21:45 92/50 94 L 03/01/19 21:15 98 03/01/19 19:00 98 03/01/19 18:00 98 03/01/19 15:20 112/67 98/62 108/62 99 Intake and Output 03/01/19 03/02/19 03/02/19 22:59 06:59 14:59 Other: Voiding Method Toilet Toilet # Voids 2 # Bowel Movements 1 Results 03/02/19 06:12 03/02/19 06:12 Cardiac Enzymes 03/01/19 Range/Units 14:55 AST 26 (17-59) U/L CBC 03/01/19 03/02/19 Range/Units 14:55 06:12 WBC 12.3 H 5.9 (3.8-10.6) k/uL RBC 4.26 L 3.80 L (4.30-5.90) m/uL Hgb 14.1 12.8 L (13.0-17.5) gm/dL Hct 40.2 36.0 L (39.0-53.0) % Plt Count 164 135 L (150-450) k/uL Comprehensive Metabolic Panel 03/01/19 03/02/19 Range/Units 14:55 06:12 Sodium 132 L 134 L (137-145) mmol/L Potassium 3.6 3.4 L (3.5-5.1) mmol/L Chloride 103 106 (98-107) mmol/L Carbon Dioxide 20 L 22 (22-30) mmol/L BUN 22 H 22 H (9-20) mg/dL Creatinine 1.22 1.24 (0.66-1.25) mg/dL Glucose 111 H 89 (74-99) mg/dL Calcium 8.4 8.4 (8.4-10.2) mg/dL AST 26 (17-59) U/L ALT 38 (21-72) U/L Alkaline Phosphatase 64 (38-126) U/L Total Protein 5.3 L (6.3-8.2) g/dL Albumin 2.9 L (3.5-5.0) g/dL Current Medications Generic Name Dose Route Start Last Admin Trade Name Freq PRN Reason Stop Dose Admin Acetaminophen 650 mg 03/01/19 20:32 Tylenol Tab PO Q4HR PRN Fever and/ or Pain Amiodarone HCl 200 mg 03/02/19 09:00 03/02/19 08:08 Cordarone PO 200 mg DAILY NOE Administration Amlodipine Besylate 5 mg 03/02/19 09:00 03/02/19 08:08 Norvasc PO 5 mg DAILY NOE Administration Atorvastatin Calcium 80 mg 03/02/19 09:00 03/02/19 08:08 Lipitor PO 80 mg DAILY NOE Administration Ibuprofen 600 mg 03/01/19 22:00 03/02/19 13:42 Motrin PO Not Given QID NOE Lisinopril 20 mg 03/02/19 09:00 03/02/19 08:08 Zestril PO 20 mg DAILY NOE Administration Miscellaneous Information 1 each 03/02/19 09:12 Potassium Per Protocol MISCELLANE DAILY PRN Per Protocol Protocol Rivaroxaban 15 mg 03/02/19 09:00 03/02/19 08:08 Xarelto PO 15 mg QAM NOE Administration Tramadol HCl 50 mg 03/01/19 21:36 Tramadol Hcl PO BID PRN Pain Intake and Output 03/01/19 03/02/19 03/02/19 22:59 06:59 14:59 Other: Voiding Method Toilet Toilet # Voids 2 # Bowel Movements 1 03/02/19 06:12 03/02/19 06:12
--- NOTE | 2019-03-02 15:28 | HP ---
HISTORY AND PHYSICAL The patient is a 73-year-old white male, date of is 1945 and his room 459 bed. His data is NO CODE and he is 6 foot 3 inches height, weight 94.801 kg, BSA 2.24 m2, BMI 26.1 kg/m2. Allergy is unknown. CHIEF COMPLAINT: Diarrhea for the last 2 days prior to the admission, started on Friday. HISTORY OF PRESENT ILLNESS: Mr. Sang Braga who is 73-year-old white male who has man finished his radiation therapy in [facility] under care of Dr. Clayton the Radiation Oncology for his prostate cancer 2 weeks ago. However, he was doing fine and on Friday he stated hit him immediately or acutely, diarrhea and with the loose watery bowel more than 3 to 4 times and that was on Friday. It was making him a little weak. He went to the [facility]. They gave her IV fluid and sent him home. Subsequently, on Friday morning, he still have frequent runny loose bowel movement, not bloody but watery with minimal cramps and no associated nausea or vomiting and at that time, he went to the emergency room where he was seen, evaluated by Dr. Ponce Velasco in the emergency room and Dr. Velasco's note stated that he had diarrhea for 2 days and he had recently radiation for the prostate cancer and started on 03/01/2019. Patient initially denied any fever or chills; however, came out of the emergency room he spikes 102 temperature and found in the laboratory in the ER that his laboratory indicates lactic acidosis with the lactic acid was elevated at 2.7. Also we did a urinalysis in the ER and found that he had blood in the urine with hematuria and Dr. Velasco because of the underlying possibility of dehydration, he was admitted to the hospital with hydration. Subsequently as patient evaluated and found the possibility that he had possible ileus or small bowel ileus with the recurrent diarrhea and he ordered the stool for Hemoccult in the hospital and at that time found that also the stool was positive for Hemoccult as well and the x-ray of the abdomen was ordered to view and there is evidence of small bowel ileus. PAST MEDICAL HISTORY: He had a history of prostate cancer, underwent 25 treatments of radiation therapy by Dr. Clayton, the Radiation Oncology in [facility]. Patient also has underlying history of atrial fibrillation, chronic, and he is on Xarelto and we are unclear the blood in the urine as well as the blood in the stool is related to the Xarelto versus related to the radiation for the prostate with mild inflammatory process. However, the small bowel ileus was present. Patient as well still has diarrhea on the exam and with the persistent diarrhea, and the lactic acidosis, which we had already resolved with the hydration. Patient received in the ER by Dr. Rod Graves IV piggyback because of the temperature 102; however, we held any other doses until seen by the Infectious Disease with the possibility of infectious diarrhea. We consulted Gastroenterology as well as well as Cardiology for reason of the Xarelto with the presence of blood in the stools and blood in the urine. The patient has chronic atrial fibrillation, paroxysmal; however currently appeared to be sinus rhythm. The order also of the EKG which appeared to be not yet on the record. On evaluation of the laboratory was ordered today as Dr. Velasco did not order any lab. The white count was 5.9, the hemoglobin was 12.8, and it appeared to be dropped 1.3 from the presentation in the emergency room and 1.3 g of drop could be due to the hydration with the underlying dehydration. His platelet count was 135, which is mild decrease in the platelet with thrombocytopenia. His chemistry indicating sodium hyponatremic, hypokalemic and his carbon dioxide was in the metabolic acidosis corrected from yesterday to today to 22, which is normal. His BUN is 22, creatinine 1.24 with an estimated glomerular filtration rate for non- is 58, could be associated with the dehydration as well. His magnesium is normal. His plasma lactic acid venous was 2.7 on admission; however, subsequently is improved to 0.8 and repeated this morning 0.8. He has negative C difficile. The patient past history that he had cancer of the prostate. He has a history of hypertension and hypertensive heart disease, coronary artery disease, atrial fibrillation on amiodarone and on Xarelto. He has been seen in the past for colonoscopy and he was seen by Dr. 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 Seen Dr. Fajardo as well. In the past, he had a history of back pain. Patient is new to me and he has been in the past under care of Dr. Anderson Kumar and transferred to my service. His family history, he is and he is retired. He has a family history is the father had a stroke and mother has glaucoma and his father, glaucoma and cancer of the colon was mother. Now, mother of age of 93 with the complication of surgery of the colon cancer. He has 2 brothers in good health, 1 sister in good health. His father at age of 93 with a stroke. ALLERGY: Unknown. The active current medication Ultram 50 mg 1 tablet p.r.n., Xarelto 50 mg once a day, amlodipine 5 mg at bedtime, amiodarone 200 mg once a day, aspirin 81 mg daily, atorvastatin 80 mg once a day, Enalapril 20 mg once a day. REVIEW OF SYSTEM: Psychiatry was negative and he has reporting numbness in the left hand in the past. Wearing glasses. Mainly the review of systems. GI symptoms of diarrhea, painless, occasionally with minimal cramps. CARDIOVASCULAR: No complaint. RESPIRATORY: No cough or expectoration or shortness of breath. MUSCULOSKELETAL: Generalized weakness as he stated that they gave him IV fluid in the [facility] as well as in the ER with underlying dehydration and weakness. PHYSICAL EXAMINATION: Patient is conscious, alert at the time of exam. The patient configuration on the history and physical dictation, his temperature is today 97.6, and pulse rate is 74, regular. His respiratory rate 15. nonlabored, blood pressure 136/75 with a mean 95. The oxygen saturation 97%. HEENT: The head was normocephalic, atraumatic. The pupils equal, reactive. Conjunctivae were pink. Sclerae were nonicteric. The extraocular muscle movement is intact. The normal, natural teeth and oropharynx normal tongue. Neck was supple as mentioned. No JVD. No thyromegaly. The cardiovascular, the heart was history of atrial fibrillation, chronic paroxysmal, currently is sinus rhythm and will obtain EKG. The heart PMI in the fifth intercostal space, outside midclavicular line normal S1, S2. No gallop. The chest was clear to auscultation and percussion and no wheezes, no rhonchi. The GI gastrointestinal, there is no tenderness in the upper quadrant, lower quadrant and on the flank and with the silent abdomen and not significant bowel movement can be heard. The skin was warm and dry and with the amiodarone effect with coloring of the skin on the lower extremities. Neurologically was intact. ASSESSMENT: 1. Acute diarrhea. The etiology is unclear, and positive stool for Hemoccult as well as positive urine for Hemoccult. 2. Hematuria. 3. Status post radiation therapy for 25 session at [facility] for prostate cancer. 4. He has hearing changes with hearing aid. 5. He had history of urinary calculi in the past. 6. He had also chronic back pain. 7. History of hypertension which is currently controlled. 8. He had coronary angioplasty and stent placement in the past. 9. 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 His CVA was in 2013. 10.He has a history also of nonsustained ventricular tachycardia and paroxysmal atrial fibrillation and coronary artery stenting due to embolization. 11.He had right kidney cortical thinning and left kidney 4.1 cm cyst with the underlying chronic kidney disease. 12.He had history of left glioblastoma was diagnosed in July 29, 2017 and he underwent course of fractionated radiotherapy. PLAN: Patient hydrated and consultation was Gastroenterology, Infectious Disease and cardiology. MMODL / IJN: [id number] /
[2019-03-02] MEDS ORDERED: LEVOFLOXACIN 750MG-D5W PMX 750 MG in DEXTROSE/WATER 1 150ML.BAG IVPB SCH (18:00)
--- NOTE | 2019-03-02 21:27 | CONS ---
CONSULTATION DATE OF SERVICE: 03/02/2019 REASON FOR CONSULTATION: Acute diarrhea. HISTORY OF PRESENTING ILLNESS: The patient is a 73 -year-old pleasant white male who was admitted to hospital with the acute onset of diarrhea that started about 2 days ago. On Friday, he had about 3 or 4 bowel movements and yesterday he had about 5-6 loose watery bowel movements. He became somewhat weak and tired and hence came into the emergency room and subsequently admitted to the hospital for further evaluation. He had about 5 episodes of bowel movements today. They are still loose, but not as watery as yesterday. He denies any bleeding. He does complain of some cramping lower abdominal discomfort. He never had these symptoms in the past. He reports no recent travel history. He denies any antibiotic use. In the emergency room, he had a fever of 102 and had mild lactic acidosis and hence he was admitted to the hospital for further evaluation. He was diagnosed with prostate cancer and he is undergoing radiation therapy at [facility] which was done about 2 weeks ago. PAST MEDICAL HISTORY: Significant for prostate cancer diagnosed recently, history of atrial fibrillation, hypertension, he has history of CVA in the past. PAST SURGICAL HISTORY: Hernia repair, cardiac catheterization with stent placement. SOCIAL HISTORY: No smoking. No alcohol use. FAMILY HISTORY: Mother had colon cancer. Father had CVA. ALLERGIES: None. MEDICATIONS: At home, Norvasc, Cordarone, Ecotrin, Vasotec, Xarelto, Lipitor and Tramadol. REVIEW OF SYSTEMS: CARDIOPULMONARY: He denies any chest pain, shortness of breath. No dysuria or hematuria. MUSCULOSKELETAL: Unremarkable. SKIN: Unremarkable. ENDOCRINE: Unremarkable. PSYCHIATRIC: Unremarkable. NEUROLOGICAL: Unremarkable. ENT/VISION: Unremarkable. CONSTITUTIONAL: No recent weight loss. No fever, chills, night sweats. PHYSICAL EXAMINATION: He appears comfortable. No apparent distress. Vital signs are stable. Blood pressure is 119/59, pulse is 70, temperature 97.8. HEENT examination unremarkable. Conjunctivae pink. Sclerae anicteric. Oral cavity no lesions. NECK: No JVD or lymph node enlargement. CHEST: Clear to auscultation. HEART: Regular rate and rhythm. ABDOMEN: Soft. Bowel sounds are positive. No organomegaly. EXTREMITIES: No pedal edema. SKIN: No rashes. NEUROLOGIC: Alert and oriented x3. No focal deficits. LABS: From yesterday, WBC 12.3. Today it is 5.9, hemoglobin 12.8, platelets 135. Basic metabolic panel is within normal limits. BUN 22, creatinine 1.2. Stool C diff negative. Occult blood positive. IMPRESSION: This is a patient who presents to the hospital with acute onset of diarrhea that started on Friday. He had about 5-6 loose watery bowel movements daily. Stool for C difficile toxin is negative. He had a fever when he came to the emergency room, but since he has been afebrile, most likely dealing with infectious colitis. Stool studies and cultures are still pending. RECOMMENDATIONS: 1. Continue with IV hydration. 2. Continue with regular diet. 3. Await rest of the stool culture results. 4. If the cultures come back negative, we can treat him empirically with antimotility agents. 5. No plans for any endoscopy intervention. Thank you for this consultation. We will follow with you closely during his hospital stay. DYANA / KATHYA: [id number] /
--- NOTE | 2019-03-02 23:50 | P.CONS ---
History of Present Illness - Reason for Consult Consult date: 03/02/19 infectious diarrhea Requesting physician: Vamshi Iniguez - Chief Complaint diarrhea x 3 days - History of Present Illness Patient is a 73-year-old male who has been recently diagnosed with prostate cancer for the patient received radiation therapy no exposure to an tibiotics or chemo presenting to the ER at [facility] yesterday with chief complaints of diarrhea that the pain has been going on for about 2 to 3 days the patient had did have 5-6 loose stools per day with no blood or mucus in the stools patient did have some crampy lower abdominal pain with intensity 3-4 out of 10 and no radiation patient denies any nausea no vomiting he did have fever and chills on presentation the hospital has abated a fever 102 F he also have elevated white count of 12,000 patient stool for C. difficile was test which came back negative stool cultures are currently pending he did receive 1 dose of Levaquin via has been admitted to the hospital and infectious disease was consulted for further recommendation about antibiotic therapy. Review of Systems CONSTITUTIONAL: Positive for weakness. Fever EYES: No complaint. ENT:No complaint. RESPIRATORY: No complaint. CARDIOVASCULAR: No complaint. GENITOURINARY: No complaint. GASTROINTESTINAL: as per HPI. MUSCULOSKELETAL: No complaint. INTEGUMENTARY: No complaint. PSYCHOLOGICAL: No complaint. ENDOCRINE: No complaint. NEUROLOGIC: No complaint. Past Medical History Past Medical History: Atrial Fibrillation, CVA/TIA, Hypertension Additional Past Medical History / Comment(s): PT HAS HX OF VTACH, prostate ca - radiation last 3 weeks ago History of Any Multi-Drug Resistant Organisms: None Reported Past Surgical History: Heart Catheterization With Stent, Hernia Repair Additional Past Surgical History / Comment(s): STENT TO LAD. Past Anesthesia/Blood Transfusion Reactions: No Reported Reaction Additional Past Anesthesia/Blood Transfusion Reaction / Comm: PT NEVER HAS HAD A BLOOD TRANSFUSION. Date of Last Stent Placement:: 05/12/14 Smoking Status: Former smoker - Past Family History Mother Family Medical History: Cancer Additional Family Medical History / Comment(s): COLON CA @ AGE 92 Father Family Medical History: CVA/TIA Additional Family Medical History / Comment(s): FATHER AT AGE 93YRS OF CVA Medications and Allergies Home Medications Medication Instructions Recorded Confirmed Type amLODIPine [Norvasc] 5 mg PO DAILY 04/06/14 03/01/19 History Amiodarone [Cordarone] 200 mg PO DAILY 11/04/16 03/01/19 History Aspirin EC [Ecotrin Low Dose] 81 mg PO DAILY 11/04/16 03/01/19 History Enalapril [Vasotec] 20 mg PO DAILY 11/04/16 03/01/19 History Rivaroxaban [Xarelto] 15 mg PO QAM 11/04/16 03/01/19 History Atorvastatin [Lipitor] 80 mg PO DAILY 03/01/19 03/01/19 History traMADol HCL 50 mg PO BID PRN 03/01/19 03/01/19 History Allergies Allergy/AdvReac Type Severity Reaction Status Date / Time No Known Allergies Allergy Verified 03/01/19 14:40 Physical Exam Vitals: Vital Signs Temp Pulse Pulse Resp BP BP Pulse Ox 03/02/19 15:00 97.8 F 70 15 98/59 95 03/02/19 07:00 97.6 F 74 15 136/75 97 03/02/19 01:18 119/62 03/02/19 00:00 98.2 F 66 16 97/52 95 03/01/19 23:32 90/47 03/01/19 22:58 98.5 F 63 89/52 03/01/19 21:45 97.0 F L 65 19 92/50 94 L 03/01/19 21:15 99.3 F 64 18 96/58 98 03/01/19 19:00 98 22 110/58 98 03/01/19 18:00 102.7 F H 98 20 151/70 98 Intake and Output 03/02/19 03/02/19 03/02/19 06:59 14:59 22:59 Other: Voiding Method Toilet Toilet Toilet # Voids 2 3 # Bowel Movements 1 5 GENERAL DESCRIPTION: elderly male lying in bed, no distress. No tachypnea or accessory muscle of respiration use. HEENT: Shows Pallor , no scleral icterus. Oral mucous membrane is dry. No pharyngeal erythema or thrush NECK: Trachea central, no thyromegaly. LUNGS: Unlabored breathing. Clear to auscultation anteriorly. No wheeze or crackle. HEART: S1, S2, regular rate and rhythm. No loud murmur ABDOMEN: Soft, no tenderness , guarding or rigidity, no organomegaly EXTREMITIES: No edema of feet. SKIN: No rash, no masses palpable. NEUROLOGICAL: The patient is awake, alert, oriented x3, mood and affect normal. Results CBC & Chem 7: 03/02/19 06:12 03/02/19 06:12 Labs: Abnormal Lab Results - Last 24 Hours (Table) 03/01/19 03/02/19 03/02/19 Range/Units 18:32 06:12 06:12 RBC 3.80 L (4.30-5.90) m/uL Hgb 12.8 L (13.0-17.5) gm/dL Hct 36.0 L (39.0-53.0) % Plt Count 135 L (150-450) k/uL Lymphocytes # 0.3 L (1.0-4.8) k/uL Sodium 134 L (137-145) mmol/L Potassium 3.4 L (3.5-5.1) mmol/L BUN 22 H (9-20) mg/dL Plasma Lactic Acid Devante 2.7 H* (0.7-2.0) mmol/L Assessment and Plan Assessment: -patient presented to the hospital with sepsis in this patient who did have a fever tachycardia elevated white count the patient presenting symptom has been diarrhea and crampy abdominal pain with concern likely for infectious diarrhea stool for C. difficile has also been second negative with a stool culture currently pending will call for the enteric gram-negative with likely pathogens this patient currently with no other clinical focus of infection (1) Sepsis Current Visit: Yes Status: Acute Code(s): A41.9 - SEPSIS, UNSPECIFIED ORGANISM SNOMED Code(s): 55069974 (2) Infectious diarrhea Current Visit: Yes Status: Acute Code(s): A09 - INFECTIOUS GASTROENTERITIS AND COLITIS, UNSPECIFIED SNOMED Code(s): 03006294 Plan: 1-we will start the patient Rocephin 1 g daily and Flagyl 500 p.o. every 8 hour 2-gentle IV fluid We will follow on clinical condition and cultures to further adjust medication if needed Thank you for this consultation we will follow the patient along with you Time with Patient: Greater than 30
[2019-03-03] MEDS: metroNIDAZOLE 500 MG TAB PO SCH ×4 (00:05→22:13)
[2019-03-03] MEDS: ATORVASTATIN 80 MG TAB PO SCH (07:22)
[2019-03-03] MEDS: AMIODARONE 200 MG TAB PO SCH (07:22)
[2019-03-03] MEDS: LISINOPRIL 5 MG TAB PO SCH (07:23)
[2019-03-03 07:33] LABS: HCT 37.1 % (39.0-53.0); HGB 12.8 gm/dL (13.0-17.5); MCH 33.1 pg (25.0-35.0); MCHC 34.7 g/dL (31.0-37.0); MCV 95.5 fL (80.0-100.0); Mean Platelet Volume 6.1; Platelet Count 162 k/uL (150-450); RBC 3.88 m/uL (4.30-5.90); RDW 12.7 % (11.5-15.5); WBC 3.2 k/uL (3.8-10.6)
[2019-03-03 07:43] LABS: Calcium 8.3 mg/dL (8.4-10.2); Potassium 3.7 mmol/L (3.5-5.1)
[2019-03-03] MEDS: RIVAROXABAN 15 MG TAB PO SCH (09:59)
--- NOTE | 2019-03-03 12:57 | P.PN ---
Subjective Progress Note Date: 03/03/19 Principal diagnosis: infecious Diarrhea dictation #[id number] progress note.date 03/03/19. Objective - Vital Signs Vital signs: Vital Signs Temp 98.0 F 03/03/19 07:00 Pulse 64 03/03/19 07:00 Resp 16 03/03/19 07:00 BP 132/70 03/03/19 07:00 Pulse Ox 98 03/03/19 07:00 Intake & Output 03/02/19 03/03/19 03/03/19 18:59 06:59 18:59 Intake Total 400 Balance 400 Intake: Intake, IV Titration 400 Amount Sodium Chloride 0.9% 1, 350 000 ml @ 100 mls/hr IV . Q10H ONE Rx#:[id number] cefTRIAXone 1 gm In 50 Sodium Chloride 0.9% 50 ml @ 100 mls/hr IVPB Q24H [facility] Rx#:[id number] Other: Voiding Method Toilet Toilet # Voids 3 2 # Bowel Movements 5 2 - Labs CBC & Chem 7: 03/03/19 06:59 03/03/19 06:59 Labs: Abnormal Lab Results - Last 24 Hours (Table) 03/02/19 03/03/19 03/03/19 Range/Units 10:25 06:59 06:59 WBC 3.2 L (3.8-10.6) k/uL RBC 3.88 L (4.30-5.90) m/uL Hgb 12.8 L (13.0-17.5) gm/dL Hct 37.1 L (39.0-53.0) % Chloride 111 H (98-107) mmol/L Carbon Dioxide 21 L (22-30) mmol/L Calcium 8.3 L (8.4-10.2) mg/dL Stool Lactoferrin POSITIVE H (NEGATIVE) Microbiology - Last 24 Hours (Table) 03/02/19 10:25 Stool Culture - Preliminary Stool 03/01/19 22:43 Blood Culture - Preliminary Blood No Growth after 24 hours 03/01/19 22:22 Blood Culture - Preliminary Blood No Growth after 24 hours 03/01/19 18:32 Blood Culture - Preliminary Blood No Growth after 24 hours
--- NOTE | 2019-03-03 14:27 | PN ---
PROGRESS NOTE The patient,. age [age] years old white male, , date of 1945. He is in 459 bed 1, the [facility], surgical floor. He is a NO CODE. Height is 6 foot, 3 inches. Weight 94.801 kg. BSA 2.24 m2. BMI of 26.1 kg/m2. ALLERGY: Unknown. Currently, patient seen today 03/03/2019. Patient is awake, alert, oriented. His at bedside. His vital signs indicating that his temperature 98 Fahrenheit oral, pulse 64 regular sinus. His blood pressure is 132/70 and mean blood pressure 90 and saturation 98% on room air. Patient yesterday became hypotensive and at that time medication was adjusted and decreased his doses of the lisinopril to 5 mg once a day and his blood pressure today is markedly improved. His blood pressure also went down to the max of 90 systolic. We are continuing his 0.9 normal saline at 70 mL an hour with the improvement of blood pressure. As discussed with the family, his white count went down to 3.2 with a hemoglobin 12.8, and platelet count is improving to 162. His chemistry, his sodium is improved to 139, potassium 3.7 with a supplementation with the protocol. His carbon dioxide was yesterday 22, today 21 and his creatinine improved as well with hydration to 1.03 and his BUN is 20, normal range. His estimated glomerular filtration rate significantly improved for non- and currently is 72, the chronic kidney disease. Range for non- is 72, which is a good function. His blood sugar 80 with no evidence of diabetes and his plasma lactic acid was elevated on admission; however, was improved and was yesterday 0.8 with resolution of lactic acidosis. His magnesium 1.7 yesterday and the serum cortisone level was obtained because of the hypotension and hypokalemia and at that time, the cortisol level today 8, which is normal range. Found the stool was positive for Hemoccult, also positive stool for lactoferrin, which indicating the inflammation of the wall with the negative C difficile. Patient seen yesterday by Dr. Crain, Infectious Disease and he started him on Rocephin as well as Flagyl and empirically with the underlying possibility of diarrhea secondary to inflammatory and questionable infectious diarrhea. Patient also seen by Dr. Post, Gastroenterology as well as he was seen by the nurse practitioner for Cardiology by Jacinda Singh nurse practitioner and in her note indicating that the patient had diarrhea and he had radiation from prostate cancer and he has a positive stool for Hemoccult as well as the urine for Hemoccult and change in the hemoglobin and she thought that could be secondary to dilution effect. He has as well, paroxysmal atrial fibrillation on long-term Xarelto, anticoagulant and he also has stent placement in the mid LAD in 2013 and history of sustained ventricular tachycardia, dyslipidemia, hypertension. The recommendation and the plan to continue Xarelto and discontinue aspirin. Second is to monitor the hemoglobin and hemoglobin is stable, there is no active bleeding. Continue Xarelto as previously ordered. Continue lisinopril, atorvastatin, amlodipine, amiodarone and to follow up with Dr. Jackson on discharge. However, the patient had hypotension and we did adjust his medication and with the dehydration and his medication as amlodipine has been stopped as well as the lisinopril has been decreased the dose and we have no common on that. On the consultation with Dr. Monica Post, she stated in her note that at the impression and she presents stated diarrhea started Friday and he is having about 5-6 loose watery bowel movements daily and the stool for C difficile is negative and he had a fever and he came to the emergency room and he has been afebrile, most likely dealing with infectious colitis as her impression and the stool studies and a culture is pending. Currently, we know that his white cells is present in the stool. Her recommendation to continue the IV hydration and continue with the regular diet and she is waiting for the rest of the stool culture and, if the culture is negative, she stated that treating empirically with the antimotility agent. No plan for any endoscopy intervention at the time. Also patient was seen correction. Patient also had x-ray of the abdomen and showed ileus and for that purposes, the patient was placed on full liquid diet. Also patient is seen by Dr. Crain, infectious disease and his impression and recommendation off indicating that the patient presented with the fever and tachycardia and elevated white count and diarrhea and abdominal pain with the infectious diarrhea. The stool for C difficile was negative. Stool culture is pending and he called it enteric gram-negative, likely pathogen and the patient is currently no other clinical focus for infection and for that purposes, we started the patient on Rocephin 1 g daily, Flagyl 500 mg p.o. q.8 hours and gentle IV fluid. PHYSICAL EXAMINATION: The patient was conscious, alert, oriented, and his at bedside. His HEENT no changes. Neck was supple and no JVD. No thyromegaly. No lymphadenopathy and trachea midline. Chest was clear to auscultation and percussion. No wheezes, no rhonchi and no rales. The heart PMI in the fifth intercostal space was regular sinus rhythm and the we ordered EKG for him. However, the EKG could not be spotted on the record off the has been done and heart is compensated at this time. The abdomen was soft, nontender in the 4 quadrant even suprapubic and left lower and upper quadrant or right lower and upper quadrant with no tenderness or rebound effect. The extremities no edema and positive pulses. ASSESSMENT: 1. Patient infectious diarrhea was considered. 2. Small bowel ileus. 3. Recent history 3 weeks today from having radiation on the prostate for prostate cancer. 4. Stool culture is pending. 5. Hypotension. His blood culture no growth and again blood culture again no growth and another blood culture no growth so far. 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 However, he can move still walk with a walker and still doing his activity as well, eating and swallowing and showing no other problems except to these symptoms that hit him on the last Friday. We will continue the current treatment and we will once we have a slowing of the diarrhea, probably will resume the diet and further treatment depends on the patient's current improvement on his diarrhea. Hypotension has been resolved. MMODL / IJN: [id number] /
[2019-03-03] MEDS: SODIUM CHLORIDE 0.9% 1,000 ML IV SCH (17:28)
[2019-03-03 17:34] LABS: Glucose,Whole Blood 77 mg/dL (75-99)
--- NOTE | 2019-03-03 21:36 | PN ---
PROGRESS NOTE DATE OF SERVICE: March 03, 2019. The patient is a 79-year-old pleasant white male admitted to the hospital with acute onset of diarrhea for the last 3 days duration. He did have stool studies which were negative for C difficile toxin, lactoferrin was positive. The patient was seen by Dr. Crain and he was started on empiric antibiotics with Flagyl and cefepime. This morning he is doing much better. The diarrhea has almost resolved. He only had one soft bowel movement this morning. No bleeding. No abdominal pain. No fever. No chills. No night sweats. On physical examination, he appears comfortable in no apparent distress. Vital signs stable. Blood pressure is 112/70. Pulse rate 64, temperature 98. HEENT examination unremarkable. Conjunctivae pink. Sclerae anicteric. Oral cavity no lesions. NECK: No JVD or lymph node enlargement. Chest was clear to auscultation. Heart regular rate and rhythm. Abdomen is soft. Bowel sounds are positive. No organomegaly. Extremities: No pedal edema. Skin no rashes. Neuro: Alert and oriented x3. No focal deficits. LAB DATA: Done today: Basic metabolic panel is within normal limits. Stool lactoferrin is positive. C difficile toxin is negative. Cultures are still pending. IMPRESSION: Acute onset of diarrhea for the last 3 days duration most likely infectious in etiology. Stool lactoferrin is positive making it more likely that we are dealing with an infectious etiology. Patient on empiric antibiotics with Flagyl and cefepime and he is doing much better and the diarrhea has resolved. RECOMMENDATION: 1. Continue with empiric antibiotics. 2. Await results of the stool cultures. 3. Advance to regular diet. 4. If symptoms improve, he can be discharged home tomorrow with outpatient followup in 2 -3 weeks. Thank you for this consultation. MMODL / IJN: [id number] /
--- NOTE | 2019-03-03 22:41 | PN ---
PROGRESS NOTE DATE OF SERVICE: 03/03/2019. REASON FOR FOLLOWUP: Diarrhea with question of infectious etiology. INTERVAL HISTORY: The patient is currently afebrile. Patient is breathing comfortably. The patient denies having any chest pain or shortness of breath or cough. No nausea, vomiting, abdominal pain, still has some loose stools but no blood or mucus in the stool. No nausea or vomiting. PHYSICAL EXAMINATION: Blood pressure 132/70 with a pulse of 64, temperature of 98. He is 98%. General description is an elderly male lying in bed in no distress respiratory system: Unlabored breathing clear to auscultation anteriorly heart S1, S2. Regular rate. ABDOMEN: Soft, no tenderness. LABS: White count normal. Stool cultures currently pending. DIAGNOSTIC IMPRESSION AND PLAN: Patient admitted to the hospital with fever, abdominal pain, and ID was consulted for possible infectious etiology. Stool culture currently pending. Stool for C difficile was negative. Continue with Rocephin and Flagyl while waiting for the culture to finalize. Continue supportive care. MMODL / IJN: [id number] /
[2019-03-04] MEDS: SODIUM CHLORIDE 0.9% 1,000 ML IV SCH (05:36)
[2019-03-04 07:34] VITALS: BP 125/73; PULSE 53; RESP 16; TEMP 97.9
[2019-03-04] MEDS: AMIODARONE 200 MG TAB PO SCH (08:11)
[2019-03-04] MEDS: LISINOPRIL 5 MG TAB PO SCH (08:11)
[2019-03-04] MEDS: RIVAROXABAN 15 MG TAB PO SCH (08:11)
[2019-03-04] MEDS: metroNIDAZOLE 500 MG TAB PO SCH (08:11)
[2019-03-04] MEDS: ATORVASTATIN 80 MG TAB PO SCH (08:11)
--- NOTE | 2019-03-04 12:55 | P.DS ---
Providers Date of admission: 03/01/19 20:31 Expected date of discharge: 03/04/19 Attending physician: Vamshi Iniguez Consults: 03/01/19 21:49 Consult Physician Urgent Consulting Provider: Annalisa Crain Consult Reason/Comments: lactic acidosis , leukocytosis,fever 102,diarrea Do you want consulting provider notified?: Yes 03/02/19 08:43 Consult Physician Urgent Consulting Provider: Katrina Gordon Consult Reason/Comments: xarelto, hematuria,amiodrone Do you want consulting provider notified?: Yes 03/02/19 09:35 Consult Physician Urgent Consulting Provider: Festus Blackwood Consult Reason/Comments: diarrhea Do you want consulting provider notified?: Yes Primary care physician: Vamshi Iniguez There is a discharge summary. Date of service 03/04/2019. Final diagnosis #1 infectious diarrhea. Resolved. #2 ileus #3 prostatic cancer status post radiation therapy 25 cessation last one 3 weeks ago. #4 hematuria/positive stool for Hemoccult seen by gastroenterology Dr. Charles. Could be related to the above. #5 chronic atrial fibrillation currently sinus rhythm on anticoagulant xarelto and amiodarone. #6 imbalance with a history of CVA in the past. #7 dehydration. Secondary to acute diarrhea and increased frequency watery stools. Negative for C. difficile and positive lactoferrin. #8 sepsis consider with the underlying temperature 102 and hypotension. Medication adjusted and IV fluid was given. Emergency room presentation: Persistent diarrhea watery with increased frequency 5-6 times per day, patient went to [facility] where the give him IV fluid and I advised him if he is not improved to go to the emergency room. Patient was electrolyte imbalance with dehydration subsequently admitted to the hospital for further evaluation and disfiguration. Hospital course: Patient seen by infectious disease, seen by gastroenterology, seen by cardiology, with the impression of infectious diarrhea, patient has episode of hypotension with the possibility of sepsis. Blood culture was negative and stool culture pending. IV fluids as well as Levaquin given in the ER, subsequently patient started on Flagyl and Rocephin. Dr. Crain infectious disease. His diet has been changed to full liquid diet subsequently returned to regular diet his diarrhea has been stopped and no diarrhea since yesterday he is ambulatory. And he has no complaint of chest pain or shortness of breath or abdominal pain he had a bowel sounds. And he is urinating. On discharge: Vital signs stable with blood pressure 125/73 and pulse ox 94 and his temperature 97.9 respiratory rate 16 pulse rate 53 regular sinus. Patient has paroxysmal atrial fibrillation. HEENT negative and able to eat and swallow with no choking. Oropharynx is negative. Neck was supple no JVD no thyromegaly no lymphadenopathy trachea midline. Chest was clear to auscultation and percussion no wheezes no rhonchi's Heart regular sinus rhythm with a history of chronic atrial flutter fibrillation with recommendation of cardiology to continue the same medication and anticoagulant. Abdomen is soft positive bowel sounds no tenderness heparin and no evidence of ileus. Extremities no edema. Pulses bilateral morning 4 extremities. Neurology: History of CVA in the past however only the balance was affected and he uses walker on ambulation. Assessment: Patient is stable general condition. Medication discontinued #1 amlodipine 5 mg at at bedtime #2 Vasotec 20 mg. Medication added: #1 lisinopril 5 mg every morning. #2 Flagyl 500 mg 3 times a day for 7 days for the infectious diarrhea. #3 Rocephin has been discontinued and Dr. Lamb will be adding new medicine antibiotic if needed. Discharge home today stable general condition follow-up in the office 5-7 days. Plan - Discharge Summary Discharge Rx Participant: No New Discharge Prescriptions: New metroNIDAZOLE [Flagyl] 500 mg PO TID #7 tab Acetaminophen Tab [Tylenol] 650 mg PO Q4HR PRN tab PRN Reason: Fever And/ Or Pain Lisinopril [Zestril] 5 mg PO DAILY 30 Days tab Continue Amiodarone [Cordarone] 200 mg PO DAILY Aspirin EC [Ecotrin Low Dose] 81 mg PO DAILY Rivaroxaban [Xarelto] 15 mg PO QAM Atorvastatin [Lipitor] 80 mg PO DAILY traMADol HCL 50 mg PO BID PRN PRN Reason: Pain Discharge Medication List Amiodarone [Cordarone] 200 mg PO DAILY 11/04/16 [History] Aspirin EC [Ecotrin Low Dose] 81 mg PO DAILY 11/04/16 [History] Rivaroxaban [Xarelto] 15 mg PO QAM 11/04/16 [History] Atorvastatin [Lipitor] 80 mg PO DAILY 03/01/19 [History] traMADol HCL 50 mg PO BID PRN 03/01/19 [History] Acetaminophen Tab [Tylenol] 650 mg PO Q4HR PRN tab 03/04/19 [Rx] Lisinopril [Zestril] 5 mg PO DAILY 30 Days tab 03/04/19 [Rx] metroNIDAZOLE [Flagyl] 500 mg PO TID #7 tab 03/04/19 [Rx] Follow up Appointment(s)/Referral(s): Gertrudis Jackson MD [STAFF PHYSICIAN] - 04/01/19 2:30 pm Vamshi Iniguez MD [Primary Care Provider] - 1 Week
--- NOTE | 2019-03-04 14:46 | PN ---
PROGRESS NOTE DATE OF SERVICE: 03/04/2019 Patient is a 73-year-old pleasant white male admitted to hospital with acute onset of diarrhea for the last 4 days' duration. He had 10 to 15 bowel movements daily. He was started on empiric antibiotics with Flagyl and ceftriaxone and his symptoms are significantly improved. He did not have any bowel movements today. Overall, he is feeling better. No abdominal pain. No nausea, vomiting. PHYSICAL EXAMINATION: Appears comfortable, in no apparent distress. Vital signs are stable. Blood pressure 132/86, pulse 85 per minute and temperature 97.8. HEENT: Examination unremarkable. Conjunctiva are pink. Sclerae nonicteric. Oral cavity no lesions. NECK: No JVD or lymph node enlargement. CHEST: Clear to auscultation. HEART: Regular rate and rhythm. ABDOMEN: Soft. Bowel sounds are positive. No organomegaly. EXTREMITIES: No pedal edema. SKIN: No rashes. NEURO: Alert and oriented x3. No focal deficits. Stool culture so far no growth. C difficile negative. Lactoferrin positive. IMPRESSION: 1. Acute onset of diarrhea for 4 days duration, possible infectious diarrhea, on antibiotics with Flagyl and ceftriaxone and symptoms have significantly improved. In fact, the diarrhea has completely resolved. The patient doing well. RECOMMENDATION: 1. I agree with continuing outpatient antibiotics for 5 days. 2. The patient can be discharged home today with outpatient followup as needed. 3. Advance diet as tolerated. Thank you for this consultation. DYANA / KATHYA: [id number] /
--- NOTE | 2019-03-04 16:28 | PN ---
PROGRESS NOTE DATE OF SERVICE: 03/04/2019 REASON FOR FOLLOWUP: Acute gastroenteritis, possibly bacterial. INTERVAL HISTORY: The patient is currently afebrile. The patient has been breathing comfortably. The patient denies having any chest pain or cough. No further nausea. No vomiting. The patient denies any abdominal pain, and his diarrhea has resolved. PHYSICAL EXAMINATION: Blood pressure 125/73 with a pulse of 53, temperature 97.9. He is 94% on room air. General description is an elderly male lying in bed in no distress. RESPIRATORY SYSTEM: Unlabored breathing. Clear to auscultation anteriorly. HEART: S1, S2. Regular rate and rhythm. ABDOMEN: Soft. No tenderness. LAB: Stool culture so far pending. Rest of the workup is negative. DIAGNOSTIC IMPRESSION AND PLAN: Patient admitted to hospital with abdominal pain, diarrhea and vomiting with concern for possible bacterial gastroenteritis. Patient has had overall clinical improvement on Rocephin and Flagyl; to finish therapy with a short course of oral Ceftin and Flagyl. Prescriptions sent to the pharmacy. Close outpatient followup. ISHAL / JOANN: [id number] /
== END 2019-03-04 14:31 | disposition home or self-care (01) | DRG 872 ==
LOC: EC 14:09 → 4SSUR 20:31 → OBSVTOIN 03-04 08:46
PROVIDERS: ADMIT Internal Medicine; ATTEND Internal Medicine
DX: A41.9 Sepsis, unspecified organism (principal); A09 Infectious gastroenteritis and colitis, unspecified; E87.1 Hypo-osmolality and hyponatremia; E87.2 Acidosis; I47.2 Ventricular tachycardia; K56.7 Ileus, unspecified; I48.20 Chronic atrial fibrillation, unspecified; C61 Malignant neoplasm of prostate; D69.6 Thrombocytopenia, unspecified; E78.5 Hyperlipidemia, unspecified; E86.0 Dehydration; E87.6 Hypokalemia; G89.29 Other chronic pain; I13.10 Hypertensive heart and chronic kidney disease without heart failure, with stage 1 through stage 4 chronic kidney disease, or unspecified chronic kidney disease; I25.10 Atherosclerotic heart disease of native coronary artery without angina pectoris; Z86.73 Personal history of transient ischemic attack (TIA), and cerebral infarction without residual deficits; N18.9 Chronic kidney disease, unspecified; N28.1 Cyst of kidney, acquired; Z79.01 Long term (current) use of anticoagulants; Z79.82 Long term (current) use of aspirin; Z79.899 Other long term (current) drug therapy; Z80.0 Family history of malignant neoplasm of digestive organs; Z82.3 Family history of stroke; Z85.46 Personal history of malignant neoplasm of prostate; Z85.841 Personal history of malignant neoplasm of brain; Z86.79 Personal history of other diseases of the circulatory system; Z87.442 Personal history of urinary calculi; Z87.891 Personal history of nicotine dependence; Z92.3 Personal history of irradiation; Z95.5 Presence of coronary angioplasty implant and graft; Z66 Do not resuscitate; H91.90 Unspecified hearing loss, unspecified ear
CPT/HCPCS: 36415; 74019; 80048; 80053; 81001; 82150; 82272; 82533; 83605; 83630; 83690; 83735; 85025; 85027; 87040; 87045; 87046; 87324; 87338; 93005; 96361; 96365; 99284

== ENCOUNTER → 2019-04-09 | Outpatient (CLI) | payer MEDICARE, BC | END | disposition home or self-care (01) | LOC: LABWHC1 09:19 | PROVIDERS: ATTEND Radiology Radiation Oncology | DX: Z00.6 Encounter for examination for normal comparison and control in clinical research program (principal); C61 Malignant neoplasm of prostate; Z87.891 Personal history of nicotine dependence | CPT/HCPCS: 36415; 84153 ==

== ENCOUNTER → 2019-07-30 | Outpatient (CLI) | payer MEDICARE, BC ==
[2019-07-30 08:18] LABS: Basophils % (A) 0 %; Eosinophils # (A) 0.1 k/uL (0-0.7); Eosinophils % (A) 1 %; HCT 47.1 % (39.0-53.0); HGB 15.8 gm/dL (13.0-17.5); Lymphocytes # (A) 0.8 k/uL (1.0-4.8); Lymphocytes % (A) 13 %; MCH 33.1 pg (25.0-35.0); MCHC 33.6 g/dL (31.0-37.0); MCV 98.3 fL (80.0-100.0); Mean Platelet Volume 7.4; Monocytes # (A) 0.5 k/uL (0-1.0); Monocytes % (A) 8 %; Neutrophils # (A) 4.8 k/uL (1.3-7.7); Neutrophils % (A) 76 %; Platelet Count 219 k/uL (150-450); RBC 4.79 m/uL (4.30-5.90); RDW 12.5 % (11.5-15.5); WBC 6.3 k/uL (3.8-10.6)
[2019-07-30 09:00] LABS: Appearance,Urine Cloudy (Clear); Bacteria,Urine Occasional /hpf; Bilirubin,Urine Negative (Negative); Blood,Urine Moderate (Negative); Calcium Oxalate Crystals,Urine Rare /hpf; Color,Urine Yellow; Glucose,Urine (UA) Negative (Negative); Ketones,Urine Negative (Negative); Leukocyte Esterase,Urine Large (Negative); Mucus,Urine Rare /hpf; Nitrite,Urine Negative (Negative); Protein,Urine Trace (Negative); RBC,Urine >182 /hpf (0-5); Specific Gravity,Urine 1.022 (1.001-1.035); Squamous Epithelial Cell,Urine <1 /hpf (0-4); Urobilinogen,Urine <2.0 mg/dL (<2.0); WBC,Urine 165 /hpf (0-5)
[2019-07-30 11:23] LABS: Erythrocyte Sedimentation Rate 3 mm/hr (0-15)
[2019-07-30 16:20] LABS: ALT 32 U/L (10-49); AST 20 U/L (14-35); African American GFR (CKD) 69.1 (60.0-200.0); Albumin/Globulin Ratio 2.28 (1.60-3.17); Alkaline Phosphatase 107 U/L (41-126); BUN/Creat Ratio 13.33 Ratio (12.00-20.00); C Reactive Protein <0.4 mg/dL (0.0-0.8); Calcium 9.2 mg/dL (8.7-10.3); Carbon Dioxide 25.8 mmol/L (21.6-31.8); Chloride 108 mmol/L (96-109); Chol/HDL Ratio 2.42; Cholesterol 126 mg/dL (0-200); Creatine Kinase 57 U/L (35-257); Globulin 1.8 g/dL (1.6-3.3); Glucose 92 mg/dL (70-110); LDL Cholesterol,Calculated 61.6 mg/dL (0.0-131.0); Non-African American GFR(CKD) 59.6 (60.0-200.0); Phosphorus 3.5 mg/dL (2.4-5.1); Potassium 4.3 mmol/L (3.5-5.5); Sodium 140 mmol/L (135-145); Total Protein 5.9 g/dL (6.2-8.2)
== END | disposition home or self-care (01) ==
LOC: LABWHC1 07:14
PROVIDERS: ATTEND Internal Medicine Cardiovascular Disease
DX: I10 Essential (primary) hypertension (principal); D64.9 Anemia, unspecified; N20.0 Calculus of kidney; E78.5 Hyperlipidemia, unspecified; E55.9 Vitamin D deficiency, unspecified; R73.9 Hyperglycemia, unspecified; M79.10 Myalgia, unspecified site; C61 Malignant neoplasm of prostate; E03.2 Hypothyroidism due to medicaments and other exogenous substances; Z92.3 Personal history of irradiation; Z87.891 Personal history of nicotine dependence
CPT/HCPCS: 36415; 80053; 80061; 81001; 82248; 82306; 82550; 83735; 84100; 84153; 84439; 84443; 85025; 85652; 86140

== ENCOUNTER → 2020-02-24 | Outpatient (CLI) | payer MEDICARE, BC ==
[2020-02-24 08:54] LABS: Basophils % (A) 0 %; Eosinophils # (A) 0.1 k/uL (0-0.7); Eosinophils % (A) 1 %; HCT 46.8 % (39.0-53.0); HGB 14.6 gm/dL (13.0-17.5); Lymphocytes # (A) 0.8 k/uL (1.0-4.8); Lymphocytes % (A) 13 %; MCHC 31.1 g/dL (31.0-37.0); MCV 99.4 fL (80.0-100.0); Mean Platelet Volume 7.2; Monocytes # (A) 0.5 k/uL (0-1.0); Monocytes % (A) 9 %; Neutrophils # (A) 4.4 k/uL (1.3-7.7); Neutrophils % (A) 76 %; Platelet Count 198 k/uL (150-450); RBC 4.71 m/uL (4.30-5.90); RDW 12.3 % (11.5-15.5); WBC 5.8 k/uL (3.8-10.6)
[2020-02-24 09:02] LABS: Appearance,Urine Clear (Clear); Bacteria,Urine Rare /hpf; Bilirubin,Urine Negative (Negative); Blood,Urine Small (Negative); Color,Urine Yellow; Glucose,Urine (UA) Negative (Negative); Hyaline Casts,Urine 1 /lpf (0-2); Ketones,Urine Negative (Negative); Leukocyte Esterase,Urine Large (Negative); Mucus,Urine Rare /hpf; Nitrite,Urine Negative (Negative); Protein,Urine Trace (Negative); RBC,Urine 3 /hpf (0-5); Specific Gravity,Urine 1.021 (1.001-1.035); Squamous Epithelial Cell,Urine <1 /hpf (0-4); Urobilinogen,Urine <2.0 mg/dL (<2.0); WBC,Urine 82 /hpf (0-5)
[2020-02-24 18:06] LABS: Erythrocyte Sedimentation Rate 5 mm/Hr (0-20)
[2020-02-24 20:59] LABS: ALT 21 U/L (10-49); AST 18 U/L (14-35); African American GFR (CKD) 76.2 (60.0-200.0); Albumin/Globulin Ratio 2.05 (1.60-3.17); Alkaline Phosphatase 93 U/L (41-126); C Reactive Protein <0.4 mg/dL (0.0-0.8); Calcium 8.9 mg/dL (8.7-10.3); Carbon Dioxide 22.8 mmol/L (21.6-31.8); Chloride 108 mmol/L (96-109); Chol/HDL Ratio 2.17; Cholesterol 137 mg/dL (0-200); Creatine Kinase 67 U/L (35-257); Globulin 1.9 g/dL (1.6-3.3); Glucose 87 mg/dL (70-110); Magnesium 1.9 mg/dL (1.5-2.4); Non-African American GFR(CKD) 65.8 (60.0-200.0); Potassium 4.2 mmol/L (3.5-5.5); Sodium 139 mmol/L (135-145); Total Bilirubin 1.2 mg/dL (0.3-1.2); Total Protein 5.8 g/dL (6.2-8.2); Triglycerides <50.0 mg/dL (0.0-149.0)
[2020-02-24 21:22] LABS: Prostate Specific Antigen 1.2 ng/mL (0.0-6.5)
== END | disposition home or self-care (01) ==
LOC: LABWHC1 07:39
PROVIDERS: ATTEND Urology
DX: Z00.00 Encounter for general adult medical examination without abnormal findings (principal); C61 Malignant neoplasm of prostate; D64.9 Anemia, unspecified; N40.0 Benign prostatic hyperplasia without lower urinary tract symptoms; I10 Essential (primary) hypertension; E78.5 Hyperlipidemia, unspecified; E03.9 Hypothyroidism, unspecified; I48.91 Unspecified atrial fibrillation; Z92.3 Personal history of irradiation; Z00.6 Encounter for examination for normal comparison and control in clinical research program; Z87.891 Personal history of nicotine dependence; E55.9 Vitamin D deficiency, unspecified
CPT/HCPCS: 36415; 80053; 80061; 81001; 82306; 82550; 83735; 84100; 84153; 84439; 84443; 85025; 85652; 86140

== ENCOUNTER → 2020-03-22 | Outpatient (CLI) | payer MEDICARE, BC ==
--- NOTE | 2020-03-23 08:17 | MR ---
EXAMINATION TYPE: MR brain/cspine wo/w DATE OF EXAM: 03/22/2020 COMPARISON: CT brain March 22, 2014. MRI brain November 02, 2009. HISTORY: Ataxia, myelopathy, abn reflexes, cva, NPH, incontinence, memory loss, and weakness all per order. History of prostate cancer per patient. TECHNIQUE: Multiplanar, multisequence images of the cervical spine, brain, and brainstem is performed without an d with IV contrast, utilizing 10 mL intravenous Gadavist . FINDINGS: BRAIN: Diffusion weighted images demonstrate no evidence of a recent infarct or other diffusion abnormality. There is no worrisome extra-axial fluid collection. Diffuse ventricular and sulcal prominence. Foca l and confluent areas of T2 hyperintensity greatest in the deep and periventricular white matter. Midline structures demonstrate normal morphology. The craniocervical junction appears within normal limits. Post contrast images demonstrate no abnormal enhancement. The dural venous sinuses appear pa tent. The visualized sinuses are clear and the globes are intact. IMPRESSION: There is mild diffuse age-related cerebral atrophy and fairly advanced chronic small vess el ischemic changes. No suspicious enhancement noted. C-SPINE: MRI CERVICAL SPINE: FINDINGS: Sagittal images of the cervical spine show the craniocervical junction to remain within nor mal limits. The cervical and upper thoracic spinal cord remains normal in course, caliber, and signa l. Vertebral alignment is stable and satisfactory. The vertebral body heights are maintained. Fairl y moderate multilevel disc space narrowing with interval progression from 2010 study. Heterogeneous M odic type II endplate changes at C6-C7 and anterior inferior C7 level. Large hemangioma occupies the T1 vertebra similar to prior. No suspicious postcontrast enhancement is seen. Axial images at C2-C3 level show left-sided uncovertebral facet degenerative change causing mild left -sided neural foraminal narrowing. Axial images at C3-C4 levels are broad-based left paracentral disc protrusion effacing anterolateral thecal sac with uncovertebral facet degenerative change and causing asymmetric mild left-sided neural foraminal narrowing with interval progression from prior. Axial images at C4-C5 level shows broad-based right paracentral disc protrusion effacing anterolatera l thecal sac with uncovertebral facet degenerative changes causing mild bilateral neural foraminal na rrowing with interval progression from prior. Axial images at C5-C6 levels with posterior spur disc complex effacing anterior thecal sac and causin g [id number] bilateral neural foraminal narrowing similar to prior. Axial images at C6-C7 level show broad-based left paracentral disc protrusion effacing intrathecal sa c causing flattening of the ventral surface of the spinal cord and moderate to advanced left along wi th mild right-sided neural foraminal narrowing. No significant change from prior. Axial images at C7-T1 level broad-based posterior disc protrusion effacing anterior thecal sac. Paten t bilateral neural foramina. IMPRESSION: Multilevel degenerative changes in the cervical spine as detailed above with some interva l degenerative progression from 2010 study noted.
== END | disposition home or self-care (01) ==
LOC: RADMRIMAIN 12:53
PROVIDERS: ATTEND Psychiatry & Neurology Neurology
DX: G31.1 Senile degeneration of brain, not elsewhere classified (principal); I67.82 Cerebral ischemia; M47.12 Other spondylosis with myelopathy, cervical region; G91.2 (Idiopathic) normal pressure hydrocephalus; Z86.73 Personal history of transient ischemic attack (TIA), and cerebral infarction without residual deficits
CPT/HCPCS: 70553; 72156; A9585

== ENCOUNTER → 2020-03-27 | Outpatient (CLI) | payer MEDICARE, BC | END | disposition home or self-care (01) | LOC: LABWHC1 09:34 | PROVIDERS: ATTEND Psychiatry & Neurology Neurology | DX: R27.0 Ataxia, unspecified (principal); Z86.73 Personal history of transient ischemic attack (TIA), and cerebral infarction without residual deficits | CPT/HCPCS: 36415; 82525; 82607 ==

== ENCOUNTER → 2020-09-26 | Outpatient (CLI) | payer MEDICARE, BC ==
[2020-09-26 16:14] LABS: Basophils # (A) 0.02 X 10*3/uL (0.00-0.10); Basophils % (A) 0.3 %; Eosinophils # (A) 0.06 X 10*3/uL (0.04-0.35); Eosinophils % (A) 0.8 %; HCT 47.5 % (39.6-50.0); Lymphocytes % (A) 12.1 %; MCH 33.2 pg (27.0-32.0); MCHC 33.7 g/dL (32.0-37.0); MCV 98.5 fL (80.0-97.0); Monocytes # (A) 0.73 X 10*3/uL (0.20-1.00); Monocytes % (A) 9.8 %; Neutrophils % (A) 76.7 %; Platelet Count 201 X 10*3/uL (140-440); RBC 4.82 X 10*6/uL (4.40-5.60); RDW 12.6 % (11.5-14.5); WBC 7.43 X 10*3/uL (4.50-10.00)
[2020-09-26 18:27] LABS: Erythrocyte Sedimentation Rate 2 mm/Hr (0-20)
[2020-09-26 19:18] LABS: C Reactive Protein <0.4 mg/dL (0.0-0.8); Prostate Specific Antigen 1.1 ng/mL (0.0-6.5)
[2020-09-26 19:19] LABS: ALT 24 U/L (10-49); AST 24 U/L (14-35); African American GFR (CKD) 75.7 (60.0-200.0); Alkaline Phosphatase 105 U/L (41-126); BUN/Creat Ratio 17.27 Ratio (12.00-20.00); Calcium 9.2 mg/dL (8.7-10.3); Carbon Dioxide 22.2 mmol/L (21.6-31.8); Chloride 106 mmol/L (96-109); Chol/HDL Ratio 2.48; Cholesterol 151 mg/dL (0-200); Creatine Kinase 82 U/L (35-257); Globulin 2.1 g/dL (1.6-3.3); Glucose 102 mg/dL (70-110); LDL Cholesterol,Calculated 78.2 mg/dL (0.0-131.0); Non-African American GFR(CKD) 65.3 (60.0-200.0); Sodium 138 mmol/L (135-145); Total Bilirubin 1.2 mg/dL (0.2-1.2); Total Protein 6.1 g/dL (6.2-8.2)
== END | disposition home or self-care (01) ==
LOC: LABWHC1 09:06
PROVIDERS: ATTEND Internal Medicine Cardiovascular Disease
DX: Z00.00 Encounter for general adult medical examination without abnormal findings (principal); C61 Malignant neoplasm of prostate; E78.5 Hyperlipidemia, unspecified; N20.0 Calculus of kidney; E55.9 Vitamin D deficiency, unspecified; I10 Essential (primary) hypertension; N40.0 Benign prostatic hyperplasia without lower urinary tract symptoms; D64.9 Anemia, unspecified; Z92.3 Personal history of irradiation; Z87.891 Personal history of nicotine dependence
CPT/HCPCS: 36415; 80053; 80061; 82248; 82306; 82550; 84153; 84439; 84443; 85025; 85652; 86140; 86900; 86901

== ENCOUNTER → 2020-11-21 | Outpatient (CLI) | payer MEDICARE, BC ==
--- NOTE | 2020-11-21 14:00 | CT ---
EXAMINATION TYPE: CT urogram wo/w con DATE OF EXAM: 11/21/2020 COMPARISON: None HISTORY: Hematuria CT DLP: 2592.2 mGycm CONTRAST: Performed and without and with IV Contrast, patient injected with 100 mL of Isovue 300. CT Urography was performed with unenhanced followed by enhanced images of the kidneys, ureters and ur inary bladder. Delayed images were obtained. 3d reconstruction was perfromed at a separate work sta tion. FINDINGS: KIDNEYS/BLADDER: No hydronephrosis. No nephrolithiasis. Renal cystic changes are seen bilaterally t he largest within the lower pole of the left kidney measuring 6.8 cm. No solid renal masses seen. The re is a 1.2 cm calculus within the urinary bladder to the right of midline. The urinary bladder is ot herwise unremarkable. LUNG BASES-: No visible nodule. No infiltrate. There is cardiomegaly with coronary artery calcifica tions. Moderate fixed hiatal hernia. LIVER/GB: Small gallstones identified. No space occupying hepatic lesion. Biliary tree is of normal c aliber. PANCREAS: No inflammation. No distinct mass. SPLEEN: No splenic enlargement. No lesion seen. ADRENALS: No nodule. No thickening. BOWEL: Normal appendix. Normal bowel caliber. No inflammation. GENITAL ORGANS: No gross abnormality. LYMPH NODES: No greater than 1cm abdominal or pelvic lymph nodes are appreciated. AORTA: No significant abnormality. OSSEOUS STRUCTURES: No significant abnormality is seen. OTHER: No significant additional abnormality is seen. IMPRESSION: 1. There is a 1.2 cm calculus within the urinary bladder to the right of midline. 2. Renal cystic changes. 3. Hiatal hernia. 4. Cholelithiasis.
== END | disposition home or self-care (01) ==
LOC: RADCTMAIN 11:28
PROVIDERS: ATTEND Urology
DX: N21.0 Calculus in bladder (principal); K44.9 Diaphragmatic hernia without obstruction or gangrene; K80.20 Calculus of gallbladder without cholecystitis without obstruction; N28.1 Cyst of kidney, acquired
CPT/HCPCS: 82565; 84520; 74178; 36415; 74400; Q9967

== ENCOUNTER → 2021-03-08 | Outpatient (CLI) | payer MEDICARE, BC | END | disposition home or self-care (01) | LOC: LABWHC1 07:09 | PROVIDERS: ATTEND Urology | DX: C61 Malignant neoplasm of prostate (principal) | CPT/HCPCS: 36415; 84153 ==

== ENCOUNTER → 2021-07-09 | Outpatient (CLI) | payer MEDICARE ==
[2021-07-09 12:33] LABS: Appearance,Urine Clear (Clear); Bilirubin,Urine Negative (Negative); Blood,Urine Small (Negative); Color,Urine Yellow; Glucose,Urine (UA) Negative (Negative); Hyaline Casts,Urine 1 /lpf (0-2); Ketones,Urine Negative (Negative); Leukocyte Esterase,Urine Small (Negative); Mucus,Urine Rare /hpf; Nitrite,Urine Negative (Negative); Protein,Urine Trace (Negative); RBC,Urine 6 /hpf (0-5); Specific Gravity,Urine 1.022 (1.001-1.035); Urobilinogen,Urine <2.0 mg/dL (<2.0); WBC,Urine 33 /hpf (0-5)
[2021-07-09 19:06] LABS: Basophils # (A) 0.02 X 10*3/uL (0.00-0.10); Basophils % (A) 0.3 %; Eosinophils # (A) 0.07 X 10*3/uL (0.04-0.35); Eosinophils % (A) 0.9 %; HCT 48.3 % (39.6-50.0); HGB 15.7 g/dL (13.0-17.0); Immature Grans, Automated 0.3 %; Lymphocytes # (A) 0.75 X 10*3/uL (0.90-5.00); Lymphocytes % (A) 9.6 %; MCH 32.2 pg (27.0-32.0); MCHC 32.5 g/dL (32.0-37.0); Mean Platelet Volume 11.1 fL (9.5-12.2); Monocytes # (A) 0.84 X 10*3/uL (0.20-1.00); Monocytes % (A) 10.7 %; NRBC Per 100 WBC 0 /100 WBCS (0.0-0.0); Neutrophils # (A) 6.12 X 10*3/uL (1.80-7.70); Neutrophils % (A) 78.2 %; Platelet Count 192 X 10*3/uL (140-440); RBC 4.88 X 10*6/uL (4.40-5.60); RDW 12.9 % (11.5-14.5); WBC 7.82 X 10*3/uL (4.50-10.00)
[2021-07-09 19:14] LABS: African American GFR (CKD) 56.6 (60.0-200.0); Anion Gap 9.9 mmol/L (10.00-18.00); BUN/Creat Ratio 15.43 Ratio (12.00-20.00); Blood Urea Nitrogen 21.6 mg/dL (9.0-27.0); Calcium 9.3 mg/dL (8.7-10.3); Carbon Dioxide 23.1 mmol/L (20.0-27.5); Non-African American GFR(CKD) 48.8 (60.0-200.0); Potassium 4.7 mmol/L (3.5-5.5)
== END | disposition home or self-care (01) ==
LOC: LABPAT 10:26
PROVIDERS: ATTEND Urology
DX: Z01.812 Encounter for preprocedural laboratory examination (principal); N21.9 Calculus of lower urinary tract, unspecified
CPT/HCPCS: 80048; 81001; 85025; 87086

== ENCOUNTER → 2021-07-09 | Outpatient (CLI) | payer MEDICARE ==
[2021-07-09 19:24] LABS: ALT 18 U/L (10-49); AST 21 U/L (14-35); Albumin 4.1 g/dL (3.8-4.9); Albumin/Globulin Ratio 1.55 (1.60-3.17); Alkaline Phosphatase 105 U/L (41-126); Bilirubin, Conjugated <0.20 mg/dL (0.20-0.40); Globulin 2.7 g/dL (1.6-3.3); Total Protein 6.8 g/dL (6.2-8.2)
== END | disposition home or self-care (01) ==
LOC: LABWHC1 10:29
PROVIDERS: ATTEND Internal Medicine Cardiovascular Disease
DX: Z00.6 Encounter for examination for normal comparison and control in clinical research program (principal); C61 Malignant neoplasm of prostate; I25.10 Atherosclerotic heart disease of native coronary artery without angina pectoris; I49.9 Cardiac arrhythmia, unspecified; I48.91 Unspecified atrial fibrillation; Z92.3 Personal history of irradiation; Z87.891 Personal history of nicotine dependence; Z79.899 Other long term (current) drug therapy
CPT/HCPCS: 36415; 80076; 84153; 84439; 84443

== ENCOUNTER 2021-07-16 07:41 | Day surgery (SDC) | payer BC, MEDICARE ==
[2021-07-12 15:55] VITALS: BMI 27.2
--- NOTE | 2021-07-13 10:31 | P.HPIHPCON ---
History of Present Illness H&P Date: 07/13/21 Chief Complaint: bladder stone this is a 75-year-old male with history of a 1.3 cm bladder stone. Causing intermittent gross hematuria. Discussed with him the option of cystolitholapaxy. Discussed the risk which includes but not limited to bleeding, infection, injury to the bladder. Discussed also risk from anesthesia. He understood all the risk and agreed to proceed Consent for Procedure: I have explained the operation/procedure to the patient, including the risks, benefits, side effects, alternative therapies (including not receiving the proposed treatment or service), the likelihood of the patient achieving his/her goals, and potential recuperation problems for the procedure/sedation/analgesia, as well as any blood products, if indicated. I also explained to the patient the risks, benefits and side effects of the alternatives, as well as the risks related to not receiving the proposed procedure, care, treatment, or services. 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 Date of Last Stent Placement:: 05/12/14 Smoking Status: Former smoker - Past Family History Mother Family Medical History: Cancer Additional Family Medical History / Comment(s): COLON CA @ AGE 92 Father Family Medical History: CVA/TIA Additional Family Medical History / Comment(s): FATHER AT AGE 93YRS OF CVA Medications and Allergies Home Medications Medication Instructions Recorded Confirmed Type Amiodarone [Cordarone] 200 mg PO DAILY 11/04/16 07/12/21 History Aspirin EC [Ecotrin Low Dose] 81 mg PO DAILY 11/04/16 07/12/21 History Rivaroxaban [Xarelto] 15 mg PO QAM 11/04/16 07/12/21 History Atorvastatin [Lipitor] 80 mg PO DAILY 03/01/19 07/12/21 History traMADol HCL 50 mg PO BID PRN 03/01/19 07/12/21 History lisinopriL [Zestril] 5 mg PO DAILY 30 Days tab 03/04/19 07/12/21 Rx Melatonin 10 mg PO HS 07/12/21 07/12/21 History Allergies Allergy/AdvReac Type Severity Reaction Status Date / Time No Known Allergies Allergy Verified 07/12/21 15:38 Surgical - Exam - General no distress, no pain - Eyes normal ocular movement - ENT normal nares, normal mucosa - Abdomen Abdomen: soft, non tender Assessment and Plan Assessment: OR for cystolitholapaxy
[~2021-07-16 07:41] MED LIST changes: +DEXAMETHASONE SOD PHOSPHATE 4 MG/ML 1 ML VIAL IV ONE; +LACTATED RINGERS 1,000 ML IV SCH; +ONDANSETRON 4 MG/2 ML VIAL IVP ONE
[2021-07-16] MEDS ORDERED: LIDOCAINE 1% INJ 10MG/ML (20 ML MDV) ONE (08:57)
[2021-07-16] MEDS ORDERED: MIDAZOLAM 2 MG/2 ML VIAL ONE (08:57)
[2021-07-16] MEDS ORDERED: fentaNYL (PF) 50 MCG/ML 2 ML AMP ONE (08:57)
[2021-07-16] MEDS ORDERED: PROPOFOL 10 MG/ML 20 ML VIAL IV ONE (08:57)
--- NOTE | 2021-07-16 09:30 | P.OP ---
Date of Procedure: 07/16/21 Preoperative Diagnosis: Bladder stone Postoperative Diagnosis: Same Procedure(s) Performed: Cystolitholapaxy Implants: None Anesthesia: JITENDRA Surgeon: Alvin Manning Estimated Blood Loss (ml): 5 Pathology: other (bladder stone) Condition: stable Disposition: PACU Indications for Procedure: this is a 75-year-old male with history of a 1.3 cm bladder stone. Causing intermittent gross hematuria. Discussed with him the option of cystolitholapaxy. Discussed the risk which includes but not limited to bleeding, infection, injury to the bladder. Discussed also risk from anesthesia. He understood all the risk and agreed to proceed Operative Findings: Large bladder stone Description of Procedure: Patient was brought to the operating room, general anesthesia was induced. He was prepped and draped in sterile fashion a placement dorsal lithotomy position. A cystoscopy fitted with a 21-[place] sheath was inserted per urethra, cystoscopy was performed which showed no masses within the bladder. Of note patient had a moderately enlarged prostate. The stone was visualized at the base of the bladder. Using the holmium laser the stone was fragmented into small fragments, the fragments were irrigated out. Repeat cystoscopy showed no sizable fragments or injury to the bladder. Patient tolerated the procedure well was taken to recovery in stable condition
[2021-07-16 09:43] VITALS: TEMP 97.3
[2021-07-16 10:50] VITALS: RESP 20
[2021-07-16 12:02] VITALS: BP 172/80; PULSE 64
== END 2021-07-16 11:50 | disposition home or self-care (01) ==
LOC: OR 07:41
PROVIDERS: ATTEND Urology
DX: N21.0 Calculus in bladder (principal); R31.0 Gross hematuria; I48.91 Unspecified atrial fibrillation; E78.5 Hyperlipidemia, unspecified; I10 Essential (primary) hypertension; G47.30 Sleep apnea, unspecified; Z85.46 Personal history of malignant neoplasm of prostate; Z92.3 Personal history of irradiation; I69.328 Other speech and language deficits following cerebral infarction; I69.398 Other sequelae of cerebral infarction; R26.89 Other abnormalities of gait and mobility; Z95.5 Presence of coronary angioplasty implant and graft; Z98.42 Cataract extraction status, left eye; Z98.41 Cataract extraction status, right eye; Z87.891 Personal history of nicotine dependence; Z09 Encounter for follow-up examination after completed treatment for conditions other than malignant neoplasm; Z87.442 Personal history of urinary calculi; Z80.0 Family history of malignant neoplasm of digestive organs; Z82.3 Family history of stroke; Z79.01 Long term (current) use of anticoagulants; Z79.82 Long term (current) use of aspirin; Z79.899 Other long term (current) drug therapy
CPT/HCPCS: 52317; 82365; C1758; J2250; J1100; J0690; J2405; J2001; J3010; J2704

== ENCOUNTER 2022-03-24 23:02 | Inpatient (IN) | payer MEDICARE ==
[2022-03-24] MEDS ORDERED: HYDROmorphone 0.5 MG/0.5 ML SYRINGE IVP STA (23:15)
--- NOTE | 2022-03-24 23:15 | ED ---
General Adult HPI - General Chief complaint: Fall Stated complaint: Fall, Right Hip Pain Time Seen by Provider: 03/24/22 23:06 Source: patient, EMS Mode of arrival: EMS Limitations: no limitations - History of Present Illness Initial comments: Patient presents to the ED by ambulance for evaluation status post trip and fall complaining of having right hip pain. Patient states that he was backing up after putting a blanket on a chair tonight when he tripped and fell. Patient states that he has had right hip pain since this fall. Patient denies any other injury or site of pain. Patient denies alcohol or drug use. Patient denies head injury, LOC, headache, focal neuro deficit, neck/back/upper extremity pain, chest pain, dyspnea, dizziness, abdominal pain, nausea or vomiting, or any other symptoms or complaints. Patient denies prior right hip injury or surgery. - Related Data Home Medications Medication Instructions Recorded Confirmed Amiodarone [Cordarone] 200 mg PO DAILY 11/04/16 07/12/21 Aspirin EC [Ecotrin Low Dose] 81 mg PO DAILY 11/04/16 07/12/21 Rivaroxaban [Xarelto] 15 mg PO QAM 11/04/16 07/12/21 Atorvastatin [Lipitor] 80 mg PO DAILY 03/01/19 07/16/21 traMADol HCL 50 mg PO BID PRN 03/01/19 07/16/21 Melatonin [Melatonin ER] 10 mg PO HS 07/12/21 07/16/21 Previous Rx's Medication Instructions Recorded lisinopriL [Zestril] 5 mg PO DAILY 30 Days tab 03/04/19 Cephalexin [Keflex] 500 mg PO Q8HR #15 cap 07/16/21 Phenazopyridine HCl [Pyridium] 100 mg PO TID #9 tab 07/16/21 Allergies Allergy/AdvReac Type Severity Reaction Status Date / Time No Known Allergies Allergy Verified 07/12/21 15:38 Review of Systems ROS Statement: Those systems with pertinent positive or pertinent negative responses have been documented in the HPI. ROS Other: All systems not noted in ROS Statement are negative. 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 Date of Last Stent Placement:: 05/12/14 Past Psychological History: No Psychological Hx Reported Smoking Status: Former smoker - Past Family History Mother Family Medical History: Cancer Additional Family Medical History / Comment(s): COLON CA @ AGE 92 Father Family Medical History: CVA/TIA Additional Family Medical History / Comment(s): FATHER AT AGE 93YRS OF CVA General Exam Limitations: no limitations General appearance: alert, in no apparent distress Head exam: Present: atraumatic, normocephalic Eye exam: Present: normal appearance, EOMI ENT exam: Present: mucous membranes moist Neck exam: Present: other (Trachea is midline). Absent: tenderness Respiratory exam: Present: normal lung sounds bilaterally. Absent: respiratory distress, wheezes, rales, rhonchi, stridor, chest wall tenderness Cardiovascular Exam: Present: regular rate, normal rhythm, normal heart sounds, other (Normal radial and dorsalis pedis pulses bilaterally) GI/Abdominal exam: Present: soft. Absent: distended, tenderness, guarding Extremities exam: Present: other (Patient's right hip is flexed at rest; right hip tenderness; pelvis is stable) Back exam: Absent: tenderness Neurological exam: Present: alert, oriented X3. Absent: motor sensory deficit Psychiatric exam: Present: normal affect, normal mood Skin exam: Present: warm, dry, intact, normal color Course Vital Signs 03/24/22 23:03 Temperature 98.1 F Pulse Rate 62 Respiratory 19 Rate Blood Pressure 169/85 O2 Sat by Pulse 95 Oximetry - Reevaluation(s) Reevaluation #1: 03/25/22 00:31 Case, H&P and right hip x-ray findings were discussed with Dr. Evans (orthopedic surgery). He accepts hospital admission. He asks to keep the patient NPO. He also requests to consult the patient's medical service. He has no further recommendations at this time. Preoperative labs have been ordered. 03/25/22 00:41 Patient states that his pain has improved with ED management, and he denies development of any new pain or symptoms while in the ED. Patient and are aware the patient's right hip x-ray findings and my discussion with Dr. Evans as above. They both agree with plan for hospital admission and surgical repair of the patient's right hip fracture. EKG Findings - EKG Comments: EKG Findings:: Normal sinus rhythm, ventricular rate of 60 bpm, no ectopy, normal NV and QRS intervals, normal QT interval, no ST or T-wave abnormality, normal axis Medical Decision Making - Lab Data Result diagrams: 03/25/22 00:30 03/25/22 00:30 Lab Results 03/25/22 03/25/22 Range/Units 00:30 00:30 WBC 6.5 (3.8-10.6) k/uL RBC 4.32 (4.30-5.90) m/uL Hgb 14.4 (13.0-17.5) gm/dL Hct 42.4 (39.0-53.0) % MCV 98.2 (80.0-100.0) fL MCH 33.4 (25.0-35.0) pg MCHC 34.0 (31.0-37.0) g/dL RDW 12.6 (11.5-15.5) % Plt Count 151 (150-450) k/uL MPV 7.9 Neutrophils % 80 % Lymphocytes % 10 % Monocytes % 7 % Eosinophils % 1 % Basophils % 0 % Neutrophils # 5.2 (1.3-7.7) k/uL Lymphocytes # 0.7 L (1.0-4.8) k/uL Monocytes # 0.5 (0-1.0) k/uL Eosinophils # 0.1 (0-0.7) k/uL Basophils # 0.0 (0-0.2) k/uL Sodium 137 (137-145) mmol/L Potassium 4.2 (3.5-5.1) mmol/L Chloride 105 (98-107) mmol/L Carbon Dioxide 24 (22-30) mmol/L Anion Gap 8 mmol/L BUN 27 H (9-20) mg/dL Creatinine 1.13 (0.66-1.25) mg/dL Est GFR (CKD-EPI)AfAm 73 (>60 ml/min/1.73 sqM) Est GFR (CKD-EPI)NonAf 63 (>60 ml/min/1.73 sqM) Glucose 105 H (74-99) mg/dL Calcium 8.7 (8.4-10.2) mg/dL Total Bilirubin 1.1 (0.2-1.3) mg/dL AST 19 (17-59) U/L ALT 20 (4-49) U/L Alkaline Phosphatase 96 (38-126) U/L Total Protein 5.7 L (6.3-8.2) g/dL Albumin 3.4 L (3.5-5.0) g/dL - Radiology Data Right hip x-rays: Subcapital fracture right femur. No dislocation. Chest x-ray: No active cardiopulmonary disease. Disposition Clinical Impression: Fall, Closed right hip fracture Disposition: ADMITTED IP TO THIS HOSP Condition: Stable Is patient prescribed a controlled substance at d/c from ED?: No Time of Disposition: 00:35
--- NOTE | 2022-03-25 00:14 | XR ---
EXAMINATION TYPE: XR Hip Complete RT DATE OF EXAM: 03/24/2022 COMPARISON: NONE HISTORY: Hip pain TECHNIQUE: 2 views FINDINGS: There is deformity of the femoral head suggestive of an acute subcapital impacted fracture of the femoral head. No dislocation. The acetabulum is intact IMPRESSION: Subcapital fracture right femur. No dislocation.
[2022-03-25] MEDS ORDERED: NALOXONE 0.4 MG/ML 1 ML VIAL IV PRN ×2 (00:35→22:50)
--- NOTE | 2022-03-25 00:36 | XR ---
EXAMINATION TYPE: XR chest 1V portable DATE OF EXAM: 03/25/2022 COMPARISON: 02/22/2016 HISTORY: Pain TECHNIQUE: Single view FINDINGS: There is no heart failure nor confluent pneumonic infiltrate. Costophrenic angles are clear . There are no hilar masses. The bony thorax is intact. IMPRESSION: No active cardiopulmonary disease.
[2022-03-25 00:51] LABS: Basophils % (A) 0 %; Eosinophils # (A) 0.1 k/uL (0-0.7); Eosinophils % (A) 1 %; HCT 42.4 % (39.0-53.0); HGB 14.4 gm/dL (13.0-17.5); Lymphocytes # (A) 0.7 k/uL (1.0-4.8); Lymphocytes % (A) 10 %; MCH 33.4 pg (25.0-35.0); MCV 98.2 fL (80.0-100.0); Mean Platelet Volume 7.9; Monocytes # (A) 0.5 k/uL (0-1.0); Monocytes % (A) 7 %; Neutrophils # (A) 5.2 k/uL (1.3-7.7); Neutrophils % (A) 80 %; Platelet Count 151 k/uL (150-450); RBC 4.32 m/uL (4.30-5.90); RDW 12.6 % (11.5-15.5); WBC 6.5 k/uL (3.8-10.6)
[2022-03-25 01:00] LABS: INR 1.2 (<1.2); Partial Thromboplastin Time 25.9 sec (22.0-30.0); Prothrombin Time 12.6 sec (9.0-12.0)
[2022-03-25 01:01] LABS: Albumin 3.4 g/dL (3.5-5.0); Calcium 8.7 mg/dL (8.4-10.2); Potassium 4.2 mmol/L (3.5-5.1); Total Bilirubin 1.1 mg/dL (0.2-1.3); Total Protein 5.7 g/dL (6.3-8.2)
[2022-03-25] MEDS: HYDROmorphone 0.5 MG/0.5 ML SYRINGE IVP PRN ×5 (02:28→17:49)
[2022-03-25] MEDS ORDERED: DOCUSATE 100 MG CAP PO PRN (09:35)
--- NOTE | 2022-03-25 09:44 | P.HPOR ---
History of Present Illness H&P Date: 03/25/22 Chief Complaint: Right hip pain status post fall Patient is seen and examined today at bedside. He is a very pleasant 76-year-old male who is accompanied by his at bedside. There is still in ER hold overnight. Apparently the patient was at at home yesterday and his legs gave way and he fell. He's unsure why his legs gave way. He fell onto his right side had sudden acute pain in his right hip. He had to be brought to the emergency room as he was unable to get up. He says he had a fall on Friday and also on Friday where his legs were giving way. He is not sure why his legs gave way. He says that it is not feeling dizzy or lightheaded but his legs occasionally without hold him. He normally walks with a cane and occasionally with a walker. He was not using his walker on any of these instances. He had a history of a stroke about 7 years ago but denies any specific residual effects but feels slow in his thinking and overall slow in his movements. She denies prior right hip pain. Denies any numbness tingling in his right leg. Denies any changes in bowel bladder function. He denies any other pain. Denies any neck pain or upper extremity pain. His history of chronic low back pain. Review of Systems As stated per HPI. Denies any changes in bowel bladder function. Denies any new weakness in his lower extremity is. History of a stroke 7 years ago. He is normally a community ambulate her with assistive device typically with a cane but occasionally with a walker. 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 History of atrial fibrillation on Xarelto History of Any Multi-Drug Resistant Organisms: None Reported Past Surgical History: Heart Catheterization With Stent, Hernia Repair Additional Past Surgical History / Comment(s): one cardiac stent, irene cataracts, Past Anesthesia/Blood Transfusion Reactions: No Reported Reaction Additional Past Anesthesia/Blood Transfusion Reaction / Comment(s): PT NEVER HAS HAD A BLOOD TRANSFUSION. Date of Last Stent Placement:: 05/12/14 Past Psychological History: No Psychological Hx Reported Smoking Status: Former smoker - Past Family History Mother Family Medical History: Cancer Additional Family Medical History / Comment(s): COLON CA @ AGE 92 Father Family Medical History: CVA/TIA Additional Family Medical History / Comment(s): FATHER AT AGE 93YRS OF CVA Medications and Allergies Home Medications Medication Instructions Recorded Confirmed Type Amiodarone [Cordarone] 200 mg PO DAILY 11/04/16 03/25/22 History Aspirin EC [Ecotrin Low Dose] 81 mg PO DAILY 11/04/16 03/25/22 History Rivaroxaban [Xarelto] 15 mg PO QAM 11/04/16 03/25/22 History Atorvastatin [Lipitor] 80 mg PO HS 03/01/19 03/25/22 History Cholecalciferol (Vitamin D3) 75 mcg PO HS 03/25/22 03/25/22 History [Vitamin D3 (3000 Iu)] Cyanocobalamin (Vitamin B-12) 1,000 mcg PO HS 03/25/22 03/25/22 History [Vitamin B-12] Docusate [Colace] 100 mg PO HS PRN 03/25/22 03/25/22 History Solifenacin Succinate 10 mg PO DAILY 03/25/22 03/25/22 History Tamsulosin HCl [Flomax] 0.4 mg PO DAILY 03/25/22 03/25/22 History lisinopriL [Zestril] 10 mg PO DAILY 03/25/22 03/25/22 History Allergies Allergy/AdvReac Type Severity Reaction Status Date / Time No Known Allergies Allergy Verified 03/25/22 07:22 Physical Examination Osteopathic Statement: *. No significant issues noted on an osteopathic structural exam other than those noted in the History and Physical/Consult. - Hip right Gait: other (He is unable to get up out of bed and unable to move well in bed due to pain in his right hip and thigh) Tenderness with palpation: anterior (Tenderness at his right anterior hip. His thigh and calf are soft nontender. He has significant pain with any motion around his right hip. He has good dorsiflexion plantar flexion bilaterally. His left lower extremity is no pain with active best range of motion), lateral (His arms have good active passive range of motion. Abdomen soft nontender. Chest has good excursion deep inspiration and expiration) Results - Labs Labs: Abnormal Lab Results - Last 24 Hours (Table) 03/25/22 03/25/22 03/25/22 Range/Units 00:30 00:30 00:30 Lymphocytes # 0.7 L (1.0-4.8) k/uL PT 12.6 H (9.0-12.0) sec INR 1.2 H (<1.2) BUN 27 H (9-20) mg/dL Glucose 105 H (74-99) mg/dL Total Protein 5.7 L (6.3-8.2) g/dL Albumin 3.4 L (3.5-5.0) g/dL H & H 03/25/22 Range/Units 00:30 Hgb 14.4 (13.0-17.5) gm/dL Hct 42.4 (39.0-53.0) % Coagulation 03/25/22 Range/Units 00:30 INR 1.2 H (<1.2) Result Diagrams: 03/25/22 00:30 03/25/22 00:30 - Diagnostic results Hip x-ray: report reviewed, image reviewed (X-rays of his pelvis and right hip show a femoral neck fracture with angulation and displacement. 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 He has a right femoral neck fracture at the best course of treatment would be to pursue right hip hemiarthroplasty. This would give stability and allow early mobilization and ambulation. I discussed the risk of occasions alternatives and benefits of procedures and treatments with him. I discussed the nature of his injury and the idea that this may cause him significant further deficits and decrease of his [place] given his multiple falls and use of assistive devices. I discussed the risk of bleeding risk and infection risk and need for further surgery risk of decreased or loss of motion loss function, occasions with surgery was all explained to him. The patient wishes to proceed with surgical intervention for right hip hemiarthroplasty. Medicine has seen him and cardiology we'll see him as well for appropriate clearance. He is nothing by mouth currently and we'll plan to pursue surgery later today. Given the nature of his injury and his somewhat declining ambulatory state think it is likely that he'll need discharge planning or placement posthospitalization. I discussed this with the family today and they seem interested in this possibility. We'll plan for surgery later today
--- NOTE | 2022-03-25 12:09 | P.CON ---
Consult Note - . 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 Mikhail Morales orthopedic with the plan for right hip hemiarthroplasty after he had right hip Fracture of the femoral head subcapital. Date of service 03/25/2022. Date of 1945. Patient is 76 years old. History: Patient after he had a dinner at the [employer] went home and at home he fell on his right side try to get up couldn't and at that time they called the ambulance and the pro time to the emergency room Clear in [facility] and they have the x-ray and laboratories X-ray indicating some L fracture of the femoral head with angulation and displacement, they called Dr. Morales orthopedic surgeon who did see him and decided for right hip essence-arthroplasty. We consulted for the medical management. I did see the patient this morning and discussed with him the current plan and his current medication in the emergency room #26 his was also at bedside. Medication: #1 lisinopril 10 mg every morning #2 amiodarone HCL 200 mg daily from cardiology Dr. Charles currently and before him Dr. Angy Yang #3 aspirin 80 mg tablet once a day from also cardiology Dr. Charles and prior to him Dr. Angy Yang. #4 hyper lipidemia on atorvastatin 80 mg daily at bedtime daily. #5 Thomasena Lodosyn 0.4 mg by urologist #6Solifenacin 10 mg every morning from Dr. siddiqui #7 vitamin D3 and vitamin B12. Medical history Currently he has been seen by Dr. Charles supervisor color paste mixing with the history on 01/10/2022 reported that he had a stent in the LAD with a history of atrial fibrillation and user XARELTO 15 mg every morning, last dose was yesterday in the morning. Past medical history Cerebral infarction due to embolization specified in the posterior cerebral artery. Chronic kidney disease stage III Walking difficulties with the use of walker Essential hypertension Hyperlipidemia . Radiation cystitis and hematuria History of malignant neoplasm of the prostate History of renal/urinary calculi History of coronary artery atherosclerosis with the history of angioplasty and stent implant. Social history , 1 son, occasional drink History of ex-smoker cigarette started at age of 21 and quits smoking in 1972 and he used to be one pack per day. Currently retired on 2008. ALLERGY is unknown. Review of system: Neuropsychiatry he had history of CVA affected only the speech and minimal effect on the right side of the face fascial and has history of falling. Pulmonary no symptoms except ex-smoker remote many years ago Cardiac history of coronary artery disease and atherosclerosis and stent in the LAD Genitourinary history of prostate cancer treated with radiation and history of hematuria has been followed by urology. Other than the above no added valuable information except falling resulted in a fracture of the right femoral head Vaccination: Influenza vaccine was given on 02/07/2022 line Prevnar 13 for pne umonia on 03/24/2020, showing Rx 03/24/2020. Call valid vaccine booster 03/16/2021 and a derma and followed by 09/23/2019 to the booster On the physical exam: Patient did not have any medication lost medication received was yesterday as he came to the ER during the night. Vital sign on the chart with mild blood pressure elevation probably due to the pain in the right hip with the fracture. Head was normocephalic and atraumatic, natural teeth, able to speak and communicate freely, right sided minimal fascial changes of the right flattening of the nasal labial fold. Neck was supple no JVD no bruits Chest was clear to auscultation and percussion with mild increase in the anteroposterior diameter with hyperinflation but not symptomatic. Heart: PMI in the fifth intercostal space outside midclavicular line, regular sinus rhythm and despite the history of atrial fib probably secondary to amiodarone medication with the skin pigmentation due to effect of the amiodarone on the scan. Abdomen soft positive bowel sounds no tenderness four-quadrant. Extremities: Right hip painful with the fracture of supple O with angulation and displacement and patient in abduction position of the right lower extremities. Pulses was intact in the popliteal and dorsalis pedis and posterior tibial The left lower extremities, no edema and positive perfusion dorsalis pedis and posterior tibial and popliteal arteries palpated no edema. Neurological exam: No evidence of new event, no lateralizing sign, speech has been no change recently Psychiatry stable mood and effect. Assessment and plan Right hip acute fall on his right side resulted in acute fracture of the head of the right femur supple O with angulation and displacement with the plan for surgical intervention for essence-arthroplasty. Underlying history of atrial fibrillation and coronary artery disease and stenting of left anterior descending artery as well as he is on amiodarone and Xarelto for anticoagulation With planning for consultation with the supervisor color paste mixing. For preop cardiac consult. Hypertension not well controlled due to effect patient did not take his medication this morning Hyperlipidemia and he is on atorvastatin will continue his current medication Because of the surgery will hold on Xarelto as well as aspirin to avoid bleeding with the surgery anticipated. Thank you for letting participate in the care of Mr. Sang Callaway Cardiology consult preop requested.
--- NOTE | 2022-03-25 12:43 | P.CRDCN ---
History of Present Illness History of present illness: HISTORY OF PRESENT ILLNESS: This is a 76-year-old male with a past medical history significant for coronary artery disease with previous angioplasty of LAD, nonsustained ventricular tachycardia, paroxysmal atrial fibrillation, hypertension, and hyperlipidemia. Patient follows in the office with []. We have been asked to see the patient in consultation for cardiac clearance. Patient examined at the bedside. patient presented to the hospital after sustaining a a fall. He was found to have a right hip fracture. He is scheduled for orthopedic intervention this afternoon. Patient denies any chest pain or pressure. He denies any shortness of breath. Vital signs are stable-blood pressure slightly on the higher side with a systolic in the 150s. He is anticoagulated on an outpatient basis with Xarelto which is currently on hold. * EKG reveals sinus mechanism with no signs of acute ischemia * Chest xray negative for acute process. * right hip x-ray: Subcapital fracture right femur. * Laboratory data: WBC 6.5. Hemoglobin 14.4. Platelet count 151. Sodium 137. Potassium 4.2. BUN 27. Creatinine 1.13. * Current home cardiac medications include amiodarone 200 mg daily, Lipitor 80 mg at night, lisinopril 10 mg daily, and Xarelto 20mg daily * patient underwent [place] scan stress test in June 2021 which was negative for ischemia * Most recent echocardiogram obtained in November 2019 revealed ejection fraction 55%, moderate aortic regurgitation, [id number] mitral regurgitation, mild tricuspid regurgitation REVIEW OF SYSTEMS: At the time of my exam: CONSTITUTIONAL: Denies fever or chills. HEENT: Denies blurred vision, vision changes, or eye pain. Denies hemoptysis CARDIOVASCULAR: Denies chest pain. Denies orthopnea. Denies PND. Denies palpitations RESPIRATORY: Denies shortness of breath. GASTROINTESTINAL: Denies abdominal pain. Denies nausea or vomiting. HEMATOLOGIC: Denies bleeding disorders. GENITOURINARY: Denies any blood in urine. SKIN: Denies pruitis. Denies rash. PHYSICAL EXAM: VITAL SIGNS: Reviewed. GENERAL: Well-developed in no acute distress. HEENT: Head is normocephalic. Pupils are equal, round. Sclerae anicteric. Mucous membranes of the mouth are moist. Neck supple. No JVD or thyromegaly LUNGS: Respirations even and unlabored. Lungs essentially clear to auscultation bilaterally. HEART: Regular rate and rhythm. S1 and S2 heard. + systolic and diastolic murmur. ABDOMEN: Soft. Nondistended. Nontender. EXTREMITIES: No clubbing or cyanosis. Peripheral pulses intact. No lower extremity edema NEUROLOGIC: Awake and alert. Oriented x 3. ASSESSMENT: Right hip fracture Paroxysmal atrial fibrillation Hypertension Hyperlipidemia Coronary artery disease with previous stenting of the LAD History of nonsustained ventricular tachycardia Valvular heart disease including moderate to severe aortic regurgitation PLAN: Obtain 2D echo to assess cardiac structure and function Xarelto on hold Add Coreg 3.125mg BID May need to increase lisinopril depending on blood pressure trends Patient is higher risk to undergo surgery. However, they are no absolute contraindications from a cardiac standpoint to proceed with surgery Further recommendations pending patient's course Nurse practitioner note has been reviewed by physician. Signing provider agrees with the documented findings, assessment, and plan of care. 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 History of atrial fibrillation on Xarelto History of Any Multi-Drug Resistant Organisms: None Reported Past Surgical History: Heart Catheterization With Stent, Hernia Repair Additional Past Surgical History / Comment(s): one cardiac stent, irene cataracts, Past Anesthesia/Blood Transfusion Reactions: No Reported Reaction Additional Past Anesthesia/Blood Transfusion Reaction / Comment(s): PT NEVER HAS HAD A BLOOD TRANSFUSION. Date of Last Stent Placement:: 05/12/14 Past Psychological History: No Psychological Hx Reported Smoking Status: Former smoker - Past Family History Mother Family Medical History: Cancer Additional Family Medical History / Comment(s): COLON CA @ AGE 92 Father Family Medical History: CVA/TIA Additional Family Medical History / Comment(s): FATHER AT AGE 93YRS OF CVA Medications and Allergies Home Medications Medication Instructions Recorded Confirmed Type Amiodarone [Cordarone] 200 mg PO DAILY 11/04/16 03/25/22 History Aspirin EC [Ecotrin Low Dose] 81 mg PO DAILY 11/04/16 03/25/22 History Rivaroxaban [Xarelto] 15 mg PO QAM 11/04/16 03/25/22 History Atorvastatin [Lipitor] 80 mg PO HS 03/01/19 03/25/22 History Cholecalciferol (Vitamin D3) 75 mcg PO HS 03/25/22 03/25/22 History [Vitamin D3 (3000 Iu)] Cyanocobalamin (Vitamin B-12) 1,000 mcg PO HS 03/25/22 03/25/22 History [Vitamin B-12] Docusate [Colace] 100 mg PO HS PRN 03/25/22 03/25/22 History Solifenacin Succinate 10 mg PO DAILY 03/25/22 03/25/22 History Tamsulosin HCl [Flomax] 0.4 mg PO DAILY 03/25/22 03/25/22 History lisinopriL [Zestril] 10 mg PO DAILY 03/25/22 03/25/22 History Allergies Allergy/AdvReac Type Severity Reaction Status Date / Time No Known Allergies Allergy Verified 03/25/22 07:22 Physical Exam Vitals: Vital Signs Temp Pulse Resp BP Pulse Ox 03/25/22 04:01 98.2 F 65 18 158/87 95 03/25/22 02:28 64 18 170/80 94 L 03/24/22 23:03 98.1 F 62 19 169/85 95 Intake and Output 03/24/22 03/25/22 03/25/22 22:59 06:59 14:59 Other: Weight 93.894 kg Results 03/25/22 00:30 03/25/22 00:30 Cardiac Enzymes 03/25/22 Range/Units 00:30 AST 19 (17-59) U/L Coagulation 03/25/22 Range/Units 00:30 PT 12.6 H (9.0-12.0) sec APTT 25.9 (22.0-30.0) sec CBC 03/25/22 Range/Units 00:30 WBC 6.5 (3.8-10.6) k/uL RBC 4.32 (4.30-5.90) m/uL Hgb 14.4 (13.0-17.5) gm/dL Hct 42.4 (39.0-53.0) % Plt Count 151 (150-450) k/uL Comprehensive Metabolic Panel 03/25/22 Range/Units 00:30 Sodium 137 (137-145) mmol/L Potassium 4.2 (3.5-5.1) mmol/L Chloride 105 (98-107) mmol/L Carbon Dioxide 24 (22-30) mmol/L BUN 27 H (9-20) mg/dL Creatinine 1.13 (0.66-1.25) mg/dL Glucose 105 H (74-99) mg/dL Calcium 8.7 (8.4-10.2) mg/dL AST 19 (17-59) U/L ALT 20 (4-49) U/L Alkaline Phosphatase 96 (38-126) U/L Total Protein 5.7 L (6.3-8.2) g/dL Albumin 3.4 L (3.5-5.0) g/dL Current Medications Generic Name Dose Route Start Last Admin Trade Name Freq PRN Reason Stop Dose Admin Amiodarone HCl 200 mg 03/26/22 09:00 Amiodarone 200 Mg Tab PO DAILY [facility] Atorvastatin Calcium 80 mg 03/25/22 21:00 Atorvastatin 80 Mg Tab PO HS [facility] Cholecalciferol 75 mcg 03/25/22 21:00 Cholecalciferol 25 Mcg (1000 Iu) Tablet PO HS [facility] Cyanocobalamin 1,000 mcg 03/25/22 21:00 Cyanocobalamin 500 Mcg Tab PO HS [facility] Docusate Sodium 100 mg 03/25/22 09:35 Docusate 100 Mg Cap PO HS PRN Constipation Hydromorphone HCl 0.5 mg 03/25/22 00:35 03/25/22 10:28 Hydromorphone 0.5 Mg/0.5 Ml Syringe IVP 0.5 mg Q3HR PRN Administration Moderate Pain (Scale 4 to 6) Sodium Chloride 1,000 mls @ 75 mls/hr 03/25/22 09:45 Saline 0.9% IV .[id number] [facility] Cefazolin Sodium 2 gm/ Sodium 50 mls @ 100 mls/hr 03/25/22 09:33 Chloride IVPB 03/26/22 03:34 ONCE PRN Pre-Op Protocol Lisinopril 10 mg 03/26/22 09:00 Lisinopril 10 Mg Tab PO DAILY [facility] Naloxone HCl 0.2 mg 03/25/22 00:35 Naloxone 0.4 Mg/Ml 1 Ml Vial IV Q2M PRN Opioid Reversal Tamsulosin HCl 0.4 mg 03/26/22 09:00 Tamsulosin 0.4 Mg Cap.Er.24h PO DAILY NOE Trospium 20 mg 03/26/22 09:00 Trospium Chloride 20 Mg Tablet PO BID NOE Intake and Output 03/24/22 03/25/22 03/25/22 22:59 06:59 14:59 Other: Weight 93.894 kg 03/25/22 00:30 03/25/22 00:30
[2022-03-25] MEDS: SODIUM CHLORIDE 0.9% 1,000 ML IV SCH ×2 (13:58→23:33)
[2022-03-25] MEDS: carvediloL 3.125 MG TAB PO SCH (17:52)
[2022-03-25] MEDS ORDERED: LIDOCAINE 2% INJ 20 MG/ML (2 ML VIAL) ONE (20:38)
[2022-03-25] MEDS ORDERED: GLYCOPYRROLATE 0.2 MG/ML 2 ML VIAL ONE (20:38)
[2022-03-25] MEDS ORDERED: ONDANSETRON 4 MG/2 ML VIAL ONE (20:38)
[2022-03-25] MEDS ORDERED: fentaNYL (PF) 50 MCG/ML 2 ML AMP ONE (20:38)
[2022-03-25] MEDS ORDERED: NEOSTIGMINE 1 MG/ML 10 ML VIAL ONE (20:38)
[2022-03-25] MEDS ORDERED: PROPOFOL 10 MG/ML 20 ML VIAL IV ONE (20:38)
[2022-03-25] MEDS ORDERED: ROCURONIUM 10 MG/ML (5 ML VIAL) IV ONE (20:38)
[2022-03-25] MEDS ORDERED: SUCCINYLCHOLINE CHLORIDE 200 MG/10 ML VIAL IV ONE (20:38)
[2022-03-25] MEDS ORDERED: ePHEDrine 50 MG/ML 1 ML VIAL ONE (20:38)
[2022-03-25] MEDS ORDERED: DEXAMETHASONE SOD PHOSPHATE 10 MG/ML 1 ML VIAL ONE (20:38)
[2022-03-25] MEDS ORDERED: LACTATED RINGERS 1,000 ML IV ONE ×2 (20:43→22:30)
[2022-03-25] MEDS ORDERED: SODIUM CHLORIDE 0.9% 50 ML with ceFAZolin 2 GM IV ONE ×2 (20:43)
[2022-03-25] MEDS ORDERED: lisinopriL 10 MG TAB PO SCH (21:00)
[2022-03-25] MEDS ORDERED: HYDROmorphone 1 MG/ML 1 ML SYRINGE IVP PRN (22:49)
[2022-03-25] MEDS ORDERED: BENZOCAINE/MENTHOL LOZENG 1 EACH LOZENGE MUCOUS MEM PRN (22:49)
[2022-03-25] MEDS ORDERED: HYDROmorphone 0.5 MG/0.5 ML SYRINGE IVP PRN (22:49)
[2022-03-25] MEDS ORDERED: ONDANSETRON 4 MG/2 ML VIAL IVP PRN (22:50)
--- NOTE | 2022-03-25 22:59 | P.OP ---
Date of Procedure: 03/25/22 Preoperative Diagnosis: Right hip acute traumatic femoral neck fracture angulated and displaced Inability to ambulate Fracture due to fall Postoperative Diagnosis: Same Anesthesia: GETA Pathology: other (Femoral head sent to pathology) Condition: stable Disposition: PACU Description of Procedure: Preoperative diagnosis:Right hip acute traumatic femoral neck fracture angulated and displaced Inability to ambulate Fracture due to fall Postoperative diagnosis: Same Procedure: Right hip cemented Hip hemiarthroplasty Surgeon: Dr. Evans Asst.: Enrique who is present that the entire the case persistence during positioning dissection exposure placement of hardware and closure Anesthesia: Gen. per Dr. Ojeda Estimated blood loss: Approximately 150 mL Components implanted: [employer] size 3 collared cemented stem with 55 head and standard neck Disposition: To recovery room in good stable condition Operative indications The patient sustained a injury and suffered a femoral neck fracture which was displaced and angulated. We were involved in the case in regard to his hip fracture. He is unable to ambulate and having severe pain at his right hip. He been having a number of falls but was unable to get up after his fall at home yesterday. After evaluation it was determined that they would be a candidate for hip hemiarthroplasty via surgical intervention. This would give them the best chance of mobilization and ambulation. We discussed the range of treatment options from conservative to surgical. They elected proceed with surgical in tervention. We answered their questions to the best of our ability healing which they can understand. They signed an informed consent. Operative summary After obtaining informed consent evaluation by anesthesia, preoperative evaluation and clearance for medical service, the patient was identified and prepped Luo area and the surgical site was marked. There brought to the operating room where the given appropriate anesthesia by the anesthesia department in standard fashion without any complications. Once the anesthesia was established we were able to position the patient. There placed in a lateral decubitus position with the operative side up being careful to pad any bony prominences and pressure points and place a excellent roll appropriately. The airway and C-spine was monitored continuously. Once patient was well positioned lower extremity was prepped and draped in normal standard sterile fashion. An appropriate keystone protocol and timeout was completed and were able to proceed with surgery. A curvilinear incision was established over the greater trochanter at the right hip. Dissection was taken down to the tensor fascia anna which was split in line with its fibers and extended proximally into the gluteal fibers. A Charnley retractor was established. The trochanteric bursa was inflamed and removed. I was able to then dissect down off the posterior aspect of the greater trochanter taking the piriformis tendon and the posterior capsule in one full-thickness flap and tacking it with suture. This expose the fracture at the femoral neck which was easily identified. A guide was used to establish the appropriate femoral neck cut and a bone- cutting saw was used to establish the femoral neck cut and good alignment and good position. All the bony fragments were removed. I was then able to use a corkscrew device to remove the femoral head from the acetabulum. Any loose fragments in the acetabulum were removed. The femoral head was measured for the appropriate size implant and then passed off for pathology. Appropriate retractors were placed and I established a lateral box cut chisel. I then used a starting reamer to establish the femoral canal area I then sequentially reamed with sequential reamers until we had good bony chatter distally. With this we then started to broach with sequential broaches to the appropriate sized to we had good fit and fill up to a size 5. There is no evidence any fracture in the proximal femur. With the appropriate size broach well seated and stable I placed the trial neck and head. A gentle reduction was performed to get good reduction. The hip was taken through a good range of motion and found to be stable in the position of sleep and through a range of motion. It had a good shuck test. We were able to then dislocate the trial prosthesis. The broach was found to remain stable. It was then removed. The wound was copiously irrigated and suctioned dry with pulsatile lavage. The appropriate size femoral stem was chosen for cementing for a size 3 . The wound and canal were copiously irrigated and suctioned dry. A canal plug was placed appropriately and the cement was mixed. The cement was placed and packed with appropriate pressure. I was then able to use the implant stem with the appropriate insertion device and it was positioned and placed in good alignment and good position with excellent fit and fill seated appropriately over the calcar. All of the cement that was extruded was able to be removed. We are able to hold it in stable position until the cement cured fully. It was checked and found to be stable. The trunnion was cleaned and dried the femoral head was then positioned over the femoral neck malleted in position checked and found to be stable. The hip prosthesis was then gently reduced back into the acetabulum and found to have excellent position and excellent stability and excellent range of motion with stability. There is no evidence of dislocation or fracture. The wound was copiously irrigated and suctioned dry. We are able to proceed with closure. I was able to do a primary closure at the capsule. The piriformis and posterior capsule were reapproximated to the posterior aspect of the greater trochanter with transosseous stitches. The wound was irrigated and suctioned dry. The fascia was closed with #2 Quill for watertight closure. Subcutaneous tissue was irrigated and suctioned dry. Subcu tissues closed with 2-0 Vicryl subcuticular tissue was closed with 30 Quill. Wound is clean and dried and dressed with Dermabond Adaptic 4 x 4's ABDs and tape. Drapes were broken down, the hip was held in stable position, and an abduction pillow was placed. The patient was then transferred back to their hospital bed being careful to maintain the hip and C-spine alignment and airway. Once stable to patient was transferred back to the postanesthesia care unit to be readmitted for pain control and DVT prophylaxis medical management and monitoring and mobilization we will continue follow patient closely throughout their postoperative course.
--- NOTE | 2022-03-25 23:48 | XR ---
EXAMINATION TYPE: XR Hip Limited RT DATE OF EXAM: 03/25/2022 COMPARISON: Yesterday HISTORY: Postop TECHNIQUE: FINDINGS: Single view shows a right hip prosthesis. Components are in anatomic position. IMPRESSION: No complication process seen.
[2022-03-26] MEDS: CYANOCOBALAMIN 500 MCG TAB PO SCH ×2 (00:07→21:20)
[2022-03-26] MEDS: ATORVASTATIN 80 MG TAB PO SCH ×2 (00:07→21:20)
[2022-03-26] MEDS: CHOLECALCIFEROL 25 MCG (1000 IU) TABLET PO SCH ×2 (00:07→23:07)
[2022-03-26] MEDS: SODIUM CHLORIDE 0.9% 1,000 ML IV SCH ×4 (00:08→23:23)
[2022-03-26] MEDS: carvediloL 3.125 MG TAB PO SCH ×3 (00:08→17:39)
[2022-03-26 01:27] LABS: Basophils % (A) 0 %; Eosinophils % (A) 0 %; HCT 43.8 % (39.0-53.0); HGB 15.1 gm/dL (13.0-17.5); Lymphocytes # (A) 0.2 k/uL (1.0-4.8); Lymphocytes % (A) 1 %; MCH 34.2 pg (25.0-35.0); MCHC 34.4 g/dL (31.0-37.0); MCV 99.4 fL (80.0-100.0); Mean Platelet Volume 8.3; Monocytes # (A) 0.4 k/uL (0-1.0); Monocytes % (A) 2 %; Neutrophils # (A) 14.4 k/uL (1.3-7.7); Neutrophils % (A) 96 %; Platelet Count 141 k/uL (150-450); RDW 12.9 % (11.5-15.5)
--- NOTE | 2022-03-26 08:33 | P.PN ---
Progress Note - Text Progress Note Date: 03/26/22 Orthopedics: History of present illness: Patient is a very pleasant 76-year-old male who is seen and examined at bedside for follow up evaluation of his right hip. He is status post right hip hemiarthroplasty for right hip acute traumatic femoral neck fracture angulated and displaced. He was cleared for surgery by medicine and cardiology. Post operatively he has some pain towards his right hip but his pain is medically controlled. He has an abductor pillow intact. His Luo catheter remains intact. He is currently sitting upright in bed getting ready to eat breakfast. He has no complaints at the bedside. He is planning for discharge to a rehabilitation facility once cleared. He prefers discharged to [facility]. He will continue to be seen by medicine and cardiology for his other medical diagnoses. Physical Exam Hip Hemiarthroplasty: Status post surgical day number 1 Patient is examined sitting bedside upright in bed Patient is awake, alert, and oriented 3 Vital signs stable Good chest excursion with deep inspiration and expiration No signs or symptoms of DVT; no calf pain Lower extremity cuffs in place on the left Abductor pillow intact Dressing of the right hip is clean, dry, and intact; no erythema, purulence, or signs of infection No significant pain with palpation over the surgical site Full range of motion of ankles bilaterally Dorsiflexion, plantarflexion, and extensor hallucis longus positive sustained bilaterally Neurovascularly intact bilateral lower extremities Capillary refill less than 2 seconds bilateral lower extremities Luo catheter intact Assessment: Status post right hip cemented hemiarthroplasty for right hip acute traumatic femoral neck fracture angulated and displaced Status post fall Right hip pain Atrial fibrillation Hyperlipidemia Hypertension History of CVA/TIA History of prostate cancer with radiation in 2019 Plan: 1. Patient may continue to weight-bear as tolerated on the right lower e xtremity with hip dislocation precautions; he may utilize a walker to aid in ambulation; patient may work with physical therapy to increase mobility and ambulation 2. Continue pain control hydrocodone and a lot of; as the patient's pain improved we'll wean off of IV Dilaudid 3. Abductor pillow to remain in place at all times except while working with therapy 4. Medicine to continue following the patient for their other medical diagnoses including atrial fibrillation, hyperlipidemia, and hypertension 5. Continue with with anticoagulation therapy with aspirin 81 mg daily 5. We'll continue to follow the patient closely; we will plan to discharge the patient to a rehabilitation facility at time of discharge. His preferred discharge location will be [facility]. Consultation has been placed with case management for discharge planning. Patient will need clearance by medicine and cardiology prior to discharge. 6. Patient has a Luo catheter intact. This may be discontinued as patient's ambulation status improves 7. Patient can follow-up with Peng Howe PA-C or Dr. Mikhail Evans at [facility] in 2-3 weeks following discharge
[2022-03-26] MEDS ORDERED: lisinopriL 10 MG TAB PO SCH (09:00)
[2022-03-26] MEDS: ASPIRIN 81 MG PO SCH (09:08)
[2022-03-26] MEDS: RIVAROXABAN 15 MG TAB PO SCH (09:08)
[2022-03-26] MEDS: TAMSULOSIN 0.4 MG CAP.ER.24H PO SCH (09:09)
[2022-03-26] MEDS: TROSPIUM CHLORIDE 20 MG TABLET PO SCH ×2 (09:09→23:34)
[2022-03-26] MEDS: AMIODARONE 200 MG TAB PO SCH (09:09)
[2022-03-26] MEDS: SENNOSIDES-DOCUSATE SODIUM 1 EACH TAB PO SCH (09:09)
[2022-03-26] MEDS: HYDROcodone/APAP 5-325MG 1 EACH TAB PO PRN ×2 (09:10→23:07)
[2022-03-26] MEDS: lisinopriL 10 MG TAB PO SCH (09:10)
--- NOTE | 2022-03-26 10:43 | P.PN ---
Subjective Progress Note Date: 03/26/22 (Status post right hip hemiarthroplasty done on 03/25/2022.) This is dictation on the progress note date of service 03/26/2022 Discussed with the patient and his in the room Patient underwent right hemiarthroplasty on 03/25/[address] Morales orthopedic surgeon. Today physical therapy in the room try to get him standing up and having some steps. Patient seen by nurse practitioner of cardiology yesterday. And the question now is when he will be resuming his medication if the cardiology we'll continue it or not which is amiodarone and anticoagulant Patient started by cardiology on another antihypertensive medication and the blood pressure today is stable 136/81. Patient seen and evaluated [id number]. Vital sign today indicating the temperature 98.1 F oral, heart rate 77/m regular with the underlying history of paroxysmal atrial fibrillation. He is oxygen saturation 93% and he is on oxygen. And the blood pressure 136/81. And patient started by cardiology on the Coreg. On exam patient conscious alert oriented 3 HEENT was normal with no acute changes able to eat and swallow Neck was supple no JVD no thyromegaly no lymphadenopathy trachea midline Chest was clear to auscultation and percussion Heart PMI in the fifth intercostal space outside midclavicular line with the normal sinus rhythm. Abdomen soft positive bowel sounds no nausea no vomiting no tenderness. Extremities no edema and positive pulses bilateral with the normal perfusion of the lower extremities. Assessment: #1 patient stable general condition and currently seen by rehabilitation #2 question for the cardiology to clarify the issue of amiodarone medication if the cancel it or the modifying it or discontinuing it. And also the use ofXarelto it appeared to be the dose has been changed by cardiology as well. #3 the continuation of the physical therapy. Plan: Future plan of going home versus going to extended care facility for continuing rehab will be up to the orthopedic surgeon. Objective - Vital Signs Vital signs: Vital Signs Temp 98.1 F 03/26/22 08:16 Pulse 77 03/26/22 08:17 Resp 14 03/26/22 08:16 BP 136/81 03/26/22 08:16 Pulse Ox 93 L 03/26/22 08:16 FiO2 Intake & Output 03/25/22 03/26/22 03/26/22 18:59 06:59 18:59 Intake Total 2790 Output Total 100 Balance 2690 Weight 93.894 kg Intake: IV 0 Intake, IV Titration 500 Amount Sodium Chloride 0.9% 1, 450 000 ml @ 75 mls/hr IV . [id number] [facility] Rx#:[id number] ceFAZolin 2 gm In Sodium 50 Chloride 0.9% 50 ml @ 100 mls/hr IVPB Q8H [facility] Rx#: [id number] Oral 240 Output: Estimated Blood Loss 100 - Labs CBC & Chem 7: 03/26/22 00:36 03/25/22 00:30 Labs: Abnormal Lab Results - Last 24 Hours (Table) 03/26/22 Range/Units 00:36 WBC 15.0 H (3.8-10.6) k/uL Plt Count 141 L (150-450) k/uL Neutrophils # 14.4 H (1.3-7.7) k/uL Lymphocytes # 0.2 L (1.0-4.8) k/uL
--- NOTE | 2022-03-26 11:23 | P.PN ---
Subjective Progress Note Date: 03/26/22 HISTORY OF PRESENT ILLNESS: This is a 76-year-old male with a past medical history significant for coronary artery disease with previous angioplasty of LAD, nonsustained ventricular tachycardia, paroxysmal atrial fibrillation, hypertension, and hyperlipidemia. Patient follows in the office with []. We have been asked to see the patient in consultation for cardiac clearance. Patient examined at the bedside. patient presented to the hospital after sustaining a a fall. He was found to have a right hip fracture. He is scheduled for orthopedic intervention this afternoon. Patient denies any chest pain or pressure. He denies any shortness of breath. Vital signs are stable-blood pressure slightly on the higher side with a systolic in the 150s. He is anticoagulated on an outpatient basis with Xarelto which is currently on hold. * EKG reveals sinus mechanism with no signs of acute ischemia * Chest xray negative for acute process. * right hip x-ray: Subcapital fracture right femur. * Laboratory data: WBC 6.5. Hemoglobin 14.4. Platelet count 151. Sodium 137. Potassium 4.2. BUN 27. Creatinine 1.13. * Current home cardiac medications include amiodarone 200 mg daily, Lipitor 80 mg at night, lisinopril 10 mg daily, and Xarelto 20mg daily * patient underwent [place] scan stress test in June 2021 which was negative for ischemia * Most recent echocardiogram obtained in November 2019 revealed ejection fraction 55%, moderate aortic regurgitation, [id number] mitral regurgitation, mild tricuspid regurgitation 03/26/2022 Patient examined this morning at the bedside. He is status post surgery yesterday with orthopedic surgery. Patient denies chest pain or pressure. He denies shortness of breath. Blood pressure is well controlled this morning. He is up and working with physical therapy this morning. PHYSICAL EXAM: VITAL SIGNS: Reviewed. GENERAL: Well-developed in no acute distress. HEENT: Head is normocephalic. Pupils are equal, round. Sclerae anicteric. Mucous membranes of the mouth are moist. Neck supple. No JVD or thyromegaly LUNGS: Respirations even and unlabored. Lungs essentially clear to auscultation bilaterally. HEART: Regular rate and rhythm. S1 and S2 heard. + systolic and diastolic murmur. ABDOMEN: Soft. Nondistended. Nontender. EXTREMITIES: No clubbing or cyanosis. Peripheral pulses intact. No lower extremity edema NEUROLOGIC: Awake and alert. Oriented x 3. ASSESSMENT: Right hip fracture Paroxysmal atrial fibrillation Hypertension Hyperlipidemia Coronary artery disease with previous stenting of the LAD History of nonsustained ventricular tachycardia Valvular heart disease including moderate to severe aortic regurgitation PLAN: Continue current cardiac medications Patient is currently stable from a cardiac perspective We will sign off. Please reconsult if needed. Nurse practitioner note has been reviewed by physician. Signing provider agrees with the documented findings, assessment, and plan of care. Objective - Vital Signs Vital signs: Vital Signs Temp 98.1 F 03/26/22 08:16 Pulse 77 03/26/22 08:17 Resp 14 03/26/22 08:17 BP 136/81 03/26/22 08:16 Pulse Ox 93 L 03/26/22 08:16 FiO2 Intake & Output 03/25/22 03/26/22 03/26/22 18:59 06:59 18:59 Intake Total 2790 Output Total 100 Balance 2690 Weight 93.894 kg Intake: IV 2050 Intake, IV Titration 500 Amount Sodium Chloride 0.9% 1, 450 000 ml @ 75 mls/hr IV . [id number] [facility] Rx#:[id number] ceFAZolin 2 gm In Sodium 50 Chloride 0.9% 50 ml @ 100 mls/hr IVPB Q8H [facility] Rx#: [id number] Oral 240 Output: Estimated Blood Loss 100 Other: Voiding Method Indwelling Catheter - Labs CBC & Chem 7: 03/26/22 00:36 03/25/22 00:30 Labs: Abnormal Lab Results - Last 24 Hours (Table) 03/26/22 Range/Units 00:36 WBC 15.0 H (3.8-10.6) k/uL Plt Count 141 L (150-450) k/uL Neutrophils # 14.4 H (1.3-7.7) k/uL Lymphocytes # 0.2 L (1.0-4.8) k/uL
--- NOTE | 2022-03-26 16:09 | CA ---
Transthoracic Echo Report Name: Sang Braga Age: 76 Gender: M : 1945 Exam Date: 03/26/2022 08:31 Exam Location: [place] [facility] Ht (in): 62 Wt (lb): 207 Ordering Physician: Trudy Beard Attending/Referring Phys: [id number], Chirag Director Of Sustainability Clare Henao, CARLO Procedure CPT: Indications: LV function, surgical clearance Cardiac Hx: Technical Quality: Contrast 1: Total Dose (mL): Contrast 2: Total Dose (mL): MEASUREMENTS (Male / Female) Normal Values 2D ECHO LV Diastolic Diameter PLAX 4.5 cm 4.2 - 5.9 / 3.9 - 5.3 cm LV Systolic Diameter PLAX 3.1 cm IVS Diastolic Thickness 1.3 cm 0.6 - 1.0 / 0.6 - 0.9 cm LVPW Diastolic Thickness 1.6 cm 0.6 - 1.0 / 0.6 - 0.9 cm LV Relative Wall Thickness 0.6 LA Systolic Diameter LX 4.2 cm 3.0 - 4.0 / 2.7 - 3.8 cm M-MODE Aortic Root Diameter MM 3.9 cm LA Systolic Diameter MM 3.8 cm LA Ao Ratio MM 1.0 DOPPLER MV Area PHT 2.3 cm??? Mitral E Point Velocity 33.3 cm/s Mitral A Point Velocity 59.5 cm/s Mitral E to A Ratio 0.6 MV Deceleration Time 328.4 ms MV E' Velocity 6.8 cm/s Mitral E to MV E' Ratio 4.9 FINDINGS Left Ventricle Left ventricular ejection fraction is estimated at 55 %. Mildly increased left ventricular wall thickness. Right Ventricle Normal right ventricular size and function. Right Atrium Normal right atrial size. Left Atrium Mildly increased left atrial diameter. Mitral Valve Structurally normal mitral valve. Mild mitral regurgitation. Aortic Valve Trileaflet aortic valve. Tricuspid Valve Structurally normal tricuspid valve. Pulmonic Valve Structurally normal pulmonic valve. Pericardium Normal pericardium. Aorta Normal size aortic root and proximal ascending aorta. CONCLUSIONS Mild LVH with ejection fraction of 55% Previewed by: Dr. Gaurav Yates MD (Electronically Signed) Final Date: 26 March 2022 16:08
[2022-03-27] MEDS: ASPIRIN 81 MG PO SCH (08:07)
[2022-03-27] MEDS: SENNOSIDES-DOCUSATE SODIUM 1 EACH TAB PO SCH (08:07)
[2022-03-27] MEDS: TAMSULOSIN 0.4 MG CAP.ER.24H PO SCH (08:07)
[2022-03-27] MEDS: RIVAROXABAN 15 MG TAB PO SCH (08:07)
[2022-03-27] MEDS: AMIODARONE 200 MG TAB PO SCH (08:07)
[2022-03-27] MEDS: HYDROcodone/APAP 5-325MG 1 EACH TAB PO PRN (08:08)
[2022-03-27 09:01] LABS: HCT 32.9 % (39.6-50.0); HGB 11.3 g/dL (13.0-17.0); MCH 34.1 pg (27.0-32.0); MCHC 34.3 g/dL (32.0-37.0); MCV 99.4 fL (80.0-97.0); Mean Platelet Volume 11.2 fL (9.5-12.2); NRBC Per 100 WBC 0 /100 WBCS (0.0-0.0); Platelet Count 149 X 10*3/uL (140-440); RBC 3.31 X 10*6/uL (4.40-5.60); RDW 13.3 % (11.5-14.5); WBC 15.61 X 10*3/uL (4.50-10.00)
[2022-03-27 09:37] LABS: Basophils # (A) 0.02 X 10*3/uL (0.00-0.10); Basophils % (A) 0.1 %; Eosinophils # (A) 0.05 X 10*3/uL (0.04-0.35); Eosinophils % (A) 0.3 %; Immature Grans, Automated 0.5 %; Lymphocytes # (A) 0.81 X 10*3/uL (0.90-5.00); Lymphocytes % (A) 5.2 %; Monocytes # (A) 1.61 X 10*3/uL (0.20-1.00); Monocytes % (A) 10.3 %; Neutrophils # (A) 13.04 X 10*3/uL (1.80-7.70); Neutrophils % (A) 83.6 %
[2022-03-27 09:38] LABS: RBC Morphology NORMAL
[2022-03-27] MEDS: TROSPIUM CHLORIDE 20 MG TABLET PO SCH (10:32)
[2022-03-27] MEDS: SODIUM CHLORIDE 0.9% 1,000 ML IV SCH (10:39)
[2022-03-27] MEDS: lisinopriL 10 MG TAB PO SCH (11:09)
[2022-03-27] MEDS: carvediloL 3.125 MG TAB PO SCH (11:09)
--- NOTE | 2022-03-27 12:04 | P.DS ---
Providers Date of admission: 03/25/22 00:35 Expected date of discharge: 03/27/22 Attending physician: Alex Evans Consults: 03/25/22 00:34 Consult Physician Urgent Consulting Provider: Vamshi Iniguez Consult Reason/Comments: fall, right hip fracture, preoperative eval Do you want consulting provider notified?: Yes Primary care physician: Vamshi Iniguez - Discharge Diagnosis(es) (1) Right hip pain Current Visit: Yes Status: Acute (2) Status post fall Current Visit: Yes Status: Acute (3) Atrial fibrillation Current Visit: Yes Status: Acute (4) Hyperlipidemia Current Visit: Yes Status: Acute (5) Closed right hip fracture Current Visit: Yes Status: Acute (6) Hypertension Current Visit: Yes Status: Acute (7) History of CVA (cerebrovascular accident) Current Visit: Yes Status: Acute (8) Generalized weakness Current Visit: Yes Status: Acute (9) Recurrent falls Current Visit: Yes Status: Acute Hospital Course: Discharge This is a pleasant 76 year old male who presented with right hip acute traumatic femoral neck fracture angulated and displaced. He was admitted for right hip hemiarthroplasty. The patient tolerated the procedure well and did well postoperatively. He has been able to work with physical therapy. He is utilizing a walker to aid in ambulation. He has been authorized for discharge to [facility] rehabilitation facility today. Patient feels he is ready for discharge. His pain has been adequately controlled. He does continue to have Generalized weakness of his bilateral lower extremities.He has fallen 3 times over the past week. He is looking forward to physical therapy to increase his strength. His right hip pain is adequately controlled. He was previously cleared for discharge from a cardiology standpoint. He has continued to be seen and examined by medicine. We discussed discharge will be pending clearance by medicine. Condition on day of discharge stable. Patient will be discharged [facility] rehabilitation facility. Patient was cleared preoperatively for surgery by Dr. Iniguez and cardiology. Patient currently denies any nausea, vomiting, fever, or chills. Patient is eating and voiding freely without difficulty. Patient may shower Optifoam dressing intact. Patient may remove Optifoam dressing in 3 days and shower without a dressing at that time. Patient should refrain from driving until at least after their first follow-up appointment in the office. Patient may continue to weight-bear as tolerated on the right lower extremity with hip dislocation precautions; he may utilize a walker to aid in ambulation; patient encouraged to work with physical therapy to increase mobility and ambulation. Abductor pillow to remain in place at all times except while working with therapy MAPS has been reviewed today, 03/27/2022. An "Opiod Start Talking" Form has been signed and placed in the patient's chart. A prescription has been written for Patient's other medical diagnoses include Atrial fibrillation, Hyperlipidemia, Hypertension, History of CVA/TIA, and History of prostate cancer with radiation in 2019 Patient will continue with other medications as previously prescribed. Med rec may be adjusted by medicine at their discretion. He will continue with previous he prescribed anticoagulation. Physical Exam Hip Hemiarthroplasty: Status post surgical day number 2 Patient is examined sitting bedside upright in bed Patient is awake, alert, and oriented 3 Vital signs stable Good chest excursion with deep inspiration and expiration No signs or symptoms of DVT; no calf pain Lower extremity cuffs in place on the left Abductor pillowNot currently intact as the patient is sitting at the bedside Dressing of the right hip is clean, dry, and intact; no erythema, purulence, or signs of infection No significant pain with palpation over the surgical site Full range of motion of ankles bilaterally Dorsiflexion, plantarflexion, and extensor hallucis longus positive sustained bilaterally Neurovascularly intact bilateral lower extremities Capillary refill less than 2 seconds bilateral lower extremities Luo catheter Has been discontinued Patient Condition at Discharge: Stable Plan - Discharge Summary Discharge Rx Participant: No New Discharge Prescriptions: New HYDROcodone/APAP 5-325MG [[place] 5] 1 each PO Q6HR PRN #28 tab PRN Reason: Pain Continue Amiodarone [Cordarone] 200 mg PO DAILY Aspirin EC [Ecotrin Low Dose] 81 mg PO DAILY Rivaroxaban [Xarelto] 15 mg PO QAM Atorvastatin [Lipitor] 80 mg PO HS Docusate [Colace] 100 mg PO HS PRN PRN Reason: Constipation Cyanocobalamin (Vitamin B-12) [Vitamin B-12] 1,000 mcg PO HS Cholecalciferol (Vitamin D3) [Vitamin D3 (3000 Iu)] 75 mcg PO HS Solifenacin Succinate 10 mg PO DAILY Tamsulosin HCl [Flomax] 0.4 mg PO DAILY lisinopriL [Zestril] 10 mg PO DAILY Discharge Medication List Amiodarone [Cordarone] 200 mg PO DAILY 11/04/16 [History] Aspirin EC [Ecotrin Low Dose] 81 mg PO DAILY 11/04/16 [History] Rivaroxaban [Xarelto] 15 mg PO QAM 11/04/16 [History] Atorvastatin [Lipitor] 80 mg PO HS 03/01/19 [History] Cholecalciferol (Vitamin D3) [Vitamin D3 (3000 Iu)] 75 mcg PO HS 03/25/22 [History] Cyanocobalamin (Vitamin B-12) [Vitamin B-12] 1,000 mcg PO HS 03/25/22 [History] Docusate [Colace] 100 mg PO HS PRN 03/25/22 [History] Solifenacin Succinate 10 mg PO DAILY 03/25/22 [History] Tamsulosin HCl [Flomax] 0.4 mg PO DAILY 03/25/22 [History] lisinopriL [Zestril] 10 mg PO DAILY 03/25/22 [History] HYDROcodone/APAP 5-325MG [[place] 5] 1 each PO Q6HR PRN #28 tab 03/27/22 [Rx] Follow up Appointment(s)/Referral(s): Peng Howe PAC [PHYSICIAN METAL MILLING MACHINE OPERATOR] - 04/12/22 1:00 pm (Patient may follow-up with Peng Howe PA-C or Dr. Mikhail Evans at [facility] in 2-3 weeks following discharge. ) Vamshi Iniguez MD [Primary Care Provider] - 1-2 days Activity/Diet/Wound Care/Special Instructions: 1. Patient may weight-bear as tolerated on the right lower extremity 2. Patient is encouraged to work with physical therapy to increase mobility and ambulation 3. Patient may utilize walker to shear operator helper in ambulation 4. Keep surgical dressing over the right hip clean, dry, and intact 5. Patient may shower with dressing over the right hip intact 6. Dressing may be removed over the right hip and patient may shower without a dressing intact if incision site remains clean and dry over the next 72 hours 7. Take medications as prescribed 8. Keep abductor pillow intact while lying in bed Discharge Disposition: TRANSFER TO SNF/ECF
[2022-03-27 13:13] VITALS: BP 104/65; PULSE 71; RESP 18; TEMP 97.4
== END 2022-03-27 15:48 | DRG 522 ==
LOC: EC 23:02 → 4SSUR 03-25 00:35
PROVIDERS: ADMIT Orthopaedic Surgery Orthopaedic Surgery of the Spine; ATTEND Orthopaedic Surgery Orthopaedic Surgery of the Spine
PROC: 0SRR019 Replacement of Right Hip Joint, Femoral Surface with Metal Synthetic Substitute, Cemented, Open Approach (ICD-10-PCS; principal; 2022-03-25 07:30)
DX: S72.011A Unspecified intracapsular fracture of right femur, initial encounter for closed fracture (principal); I12.9 Hypertensive chronic kidney disease with stage 1 through stage 4 chronic kidney disease, or unspecified chronic kidney disease; N18.30 Chronic kidney disease, stage 3 unspecified; I69.328 Other speech and language deficits following cerebral infarction; I69.398 Other sequelae of cerebral infarction; E78.5 Hyperlipidemia, unspecified; I25.10 Atherosclerotic heart disease of native coronary artery without angina pectoris; R26.89 Other abnormalities of gait and mobility; R29.6 Repeated falls; M16.11 Unilateral primary osteoarthritis, right hip; I08.3 Combined rheumatic disorders of mitral, aortic and tricuspid valves; I48.0 Paroxysmal atrial fibrillation; G89.29 Other chronic pain; M54.50 Low back pain, unspecified; W01.0XXA Fall on same level from slipping, tripping and stumbling without subsequent striking against object, initial encounter; Y92.009 Unspecified place in unspecified non-institutional (private) residence as the place of occurrence of the external cause; Z28.310 Unvaccinated for COVID-19; Z87.39 Personal history of other diseases of the musculoskeletal system and connective tissue; Z92.3 Personal history of irradiation; Z85.46 Personal history of malignant neoplasm of prostate; Z79.82 Long term (current) use of aspirin; Z79.01 Long term (current) use of anticoagulants; Z95.5 Presence of coronary angioplasty implant and graft; Z87.891 Personal history of nicotine dependence; Z79.899 Other long term (current) drug therapy
CPT/HCPCS: 36415; 71045; 73501; 73502; 80053; 85025; 85610; 85730; 86850; 86900; 86901; 87635; 88305; 88311; 93005; 93306; 96361; 96374; 96376; 99284

== ENCOUNTER 2022-04-19 14:25 | Emergency (ER) | payer MEDICARE ==
[2022-04-19 15:01] VITALS: RESP 20
[2022-04-19 16:07] LABS: Basophils % (A) 0 %; Eosinophils # (A) 0.2 k/uL (0-0.7); Eosinophils % (A) 2 %; HCT 35.9 % (39.0-53.0); HGB 12.6 gm/dL (13.0-17.5); Lymphocytes # (A) 0.8 k/uL (1.0-4.8); Lymphocytes % (A) 8 %; MCH 34.6 pg (25.0-35.0); MCV 98.8 fL (80.0-100.0); Mean Platelet Volume 7.1; Monocytes # (A) 0.5 k/uL (0-1.0); Monocytes % (A) 6 %; Neutrophils # (A) 7.9 k/uL (1.3-7.7); Neutrophils % (A) 83 %; Platelet Count 294 k/uL (150-450); RBC 3.64 m/uL (4.30-5.90); RDW 13.5 % (11.5-15.5); WBC 9.6 k/uL (3.8-10.6)
[2022-04-19 16:16] LABS: INR 1.2 (<1.2); Partial Thromboplastin Time 27.7 sec (22.0-30.0); Prothrombin Time 12.9 sec (9.0-12.0)
[2022-04-19 16:17] LABS: ALT 56 U/L (4-49); AST 38 U/L (17-59); African American GFR (CKD) >90 (>60 ml/min/1.73 sqM); Albumin 2.7 g/dL (3.5-5.0); Alkaline Phosphatase 140 U/L (38-126); Anion Gap 2 mmol/L; Blood Urea Nitrogen 15 mg/dL (9-20); Calcium 8.6 mg/dL (8.4-10.2); Carbon Dioxide 26 mmol/L (22-30); Chloride 104 mmol/L (98-107); Glucose 112 mg/dL (74-99); Non-African American GFR(CKD) 84 (>60 ml/min/1.73 sqM); Potassium 4.1 mmol/L (3.5-5.1); Sodium 132 mmol/L (137-145); Total Bilirubin 0.9 mg/dL (0.2-1.3); Total Protein 5.2 g/dL (6.3-8.2)
--- NOTE | 2022-04-19 17:12 | XR ---
EXAMINATION TYPE: XR chest 2V DATE OF EXAM: 04/19/2022 4:47 PM COMPARISON: Chest radiographs from 03/25/2022 TECHNIQUE: XR chest 2V Frontal and lateral views of the chest. CLINICAL INDICATION:Male, 76 years old with history of Weakness; FINDINGS: Lungs/Pleura: There is no evidence of pleural effusion, focal consolidation, or pneumothorax. Pulmonary vascularity: Unremarkable. Heart/mediastinum: Cardiomediastinal silhouette is unremarkable. Musculoskeletal: No acute osseous pathology. IMPRESSION: No acute cardiopulmonary disease/process.
--- NOTE | 2022-04-19 17:28 | ED ---
General Adult HPI - General Chief complaint: Weakness Stated complaint: weakness Time Seen by Provider: 04/19/22 15:02 Source: patient Mode of arrival: ambulatory Limitations: no limitations - History of Present Illness Initial comments: This is a 76-year-old male with extensive past medical history including previous CVA 8 years ago with minor deficits including slurring of speech and a shuffling gait as well as previous hip fracture now in an acute rehab facility presents emergency department via EMS for increasing weakness. 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 The patient's did state that the patient was overall weak over the last 1 week but stated that she did not notice any acute deficit. 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 The patient's elbow was resting very comfortably and denied any trauma, lightheadedness or dizziness. - Related Data Home Medications Medication Instructions Recorded Confirmed Amiodarone [Cordarone] 200 mg PO DAILY 11/04/16 03/25/22 Aspirin EC [Ecotrin Low Dose] 81 mg PO DAILY 11/04/16 03/25/22 Rivaroxaban [Xarelto] 15 mg PO QAM 11/04/16 03/25/22 Atorvastatin [Lipitor] 80 mg PO HS 03/01/19 03/25/22 Cholecalciferol (Vitamin D3) 75 mcg PO HS 03/25/22 03/25/22 [Vitamin D3 (3000 Iu)] Cyanocobalamin (Vitamin B-12) 1,000 mcg PO HS 03/25/22 03/25/22 [Vitamin B-12] Docusate [Colace] 100 mg PO HS PRN 03/25/22 03/25/22 Solifenacin Succinate 10 mg PO DAILY 03/25/22 03/25/22 Tamsulosin HCl [Flomax] 0.4 mg PO DAILY 03/25/22 03/25/22 lisinopriL [Zestril] 10 mg PO DAILY 03/25/22 03/25/22 Previous Rx's Medication Instructions Recorded HYDROcodone/APAP 5-325MG [[place] 1 each PO Q6HR PRN #0 tab 03/27/22 5-325] carvediloL [Coreg] 3.125 mg PO BID-W/MEALS #60 tab 03/27/22 Ciprofloxacin HCl [Cipro] 500 mg PO Q12HR 14 Days #28 tab 04/19/22 Allergies Allergy/AdvReac Type Severity Reaction Status Date / Time No Known Allergies Allergy Verified 04/19/22 15:01 Review of Systems ROS Statement: Those systems with pertinent positive or pertinent negative responses have been documented in the HPI. ROS Other: All systems not noted in ROS Statement are negative. 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 History of atrial fibrillation on Xarelto History of Any Multi-Drug Resistant Organisms: None Reported Past Surgical History: Heart Catheterization With Stent, Hernia Repair Additional Past Surgical History / Comment(s): one cardiac stent, irene cataracts, Past Anesthesia/Blood Transfusion Reactions: No Reported Reaction Additional Past Anesthesia/Blood Transfusion Reaction / Comment(s): PT NEVER HAS HAD A BLOOD TRANSFUSION. Date of Last Stent Placement:: 05/12/14 Past Psychological History: No Psychological Hx Reported Smoking Status: Former smoker Past Alcohol Use History: Rare Past Drug Use History: None Reported - Past Family History Mother Family Medical History: Coronary Artery Disease (CAD) Additional Family Medical History / Comment(s): MOTHER HAD CABG. SHE AT AGE 91 YRS. General Exam Limitations: no limitations General appearance: alert, in no apparent distress Head exam: Present: atraumatic, normocephalic Eye exam: Present: normal appearance, PERRL, EOMI Pupils: Present: normal accommodation ENT exam: Present: normal exam, normal oropharynx, mucous membranes moist Neck exam: Present: normal inspection, full ROM Respiratory exam: Present: normal lung sounds bilaterally Cardiovascular Exam: Present: regular rate, normal rhythm, normal heart sounds GI/Abdominal exam: Present: soft, normal bowel sounds Extremities exam: Present: normal inspection, full ROM, other (At baseline) Back exam: Present: normal inspection, full ROM Neurological exam: Present: alert, oriented X3, other (Slight slurring of speech but was at baseline according to patient and his .) Psychiatric exam: Present: normal affect, normal mood Skin exam: Present: warm, dry Course Vital Signs 04/19/22 14:58 Temperature 98.2 F Pulse Rate 64 Respiratory 20 Rate Blood Pressure 121/76 O2 Sat by Pulse 96 Oximetry EKG Findings - EKG Comments: EKG Findings:: An EKG was obtained that showed a rate of 69, CT interval 164, QRS duration of 111 and QTC of 444. This EKG did show a normal sinus rhythm with no ST segment elevations or depressions noted. There was no old EKGs for comparison at this time. Medical Decision Making - Medical Decision Making The patient was seen and evaluated in the emergency department. Physical exam, the patient was resting in bed without any acute distress. Vital signs on admission were stable and within normal limits. Due to the nature the patient's complaints, laboratory workup was obtained as was a CTA of the head and neck and CT head. A chest x-ray and EKG were also obtained at this time. Chest x- ray was negative. A limited workup was within normal limits. Urinalysis did show a UTI and the patient was given ciprofloxacin. CT of the head and CTA of the head and neck were negative and did not show any acute pathology. The patient likely had weakness secondary to UTI as well as reported inability to sleep secondary to allow her [place] last several nights and decreased appetite. The patient and his are told of this and the prescription was sent to the pharmacy. The patient's was explained that the patient would need continued antibiotics for at least 14 days and was given a procession for this. They're both told to report back to the emergency department if he any worsening acute pain or complaints or deficits. The patient and his are agreeable to this and the patient was discharged back to his rehab facility via EMS in stable condition. - Lab Data Result diagrams: 04/19/22 15:48 04/19/22 15:48 Lab Results 04/19/22 04/19/22 04/19/22 Range/Units 15:48 15:48 15:48 WBC 9.6 (3.8-10.6) k/uL RBC 3.64 L (4.30-5.90) m/uL Hgb 12.6 L (13.0-17.5) gm/dL Hct 35.9 L (39.0-53.0) % MCV 98.8 (80.0-100.0) fL MCH 34.6 (25.0-35.0) pg MCHC 35.0 (31.0-37.0) g/dL RDW 13.5 (11.5-15.5) % Plt Count 294 (150-450) k/uL MPV 7.1 Neutrophils % 83 % Lymphocytes % 8 % Monocytes % 6 % Eosinophils % 2 % Basophils % 0 % Neutrophils # 7.9 H (1.3-7.7) k/uL Lymphocytes # 0.8 L (1.0-4.8) k/uL Monocytes # 0.5 (0-1.0) k/uL Eosinophils # 0.2 (0-0.7) k/uL Basophils # 0.0 (0-0.2) k/uL PT 12.9 H (9.0-12.0) sec INR 1.2 H (<1.2) APTT 27.7 (22.0-30.0) sec Sodium (137-145) mmol/L Potassium (3.5-5.1) mmol/L Chloride (98-107) mmol/L Carbon Dioxide (22-30) mmol/L Anion Gap mmol/L BUN (9-20) mg/dL Creatinine (0.66-1.25) mg/dL Est GFR (CKD-EPI)AfAm (>60 ml/min/1.73 sqM) Est GFR (CKD-EPI)NonAf (>60 ml/min/1.73 sqM) Glucose (74-99) mg/dL Plasma Lactic Acid [place] (0.7-2.0) mmol/L Calcium (8.4-10.2) mg/dL Total Bilirubin (0.2-1.3) mg/dL AST (17-59) U/L ALT (4-49) U/L Alkaline Phosphatase (38-126) U/L Troponin I (0.000-0.034) ng/mL NT-Pro-B Natriuret Pep pg/mL Total Protein (6.3-8.2) g/dL Albumin (3.5-5.0) g/dL Urine Color Light Yellow Urine Appearance Cloudy (Clear) Urine pH 7.5 (5.0-8.0) Ur Specific [place] 1.022 (1.001-1.035) Urine Protein Negative (Negative) Urine Glucose (UA) Negative (Negative) Urine Ketones Negative (Negative) Urine Blood Negative (Negative) Urine Nitrite Negative (Negative) Urine Bilirubin Negative (Negative) Urine Urobilinogen <2.0 (<2.0) mg/dL Ur Leukocyte Esterase Large H (Negative) Urine RBC 2 (0-5) /hpf Urine WBC 96 H (0-5) /hpf Urine WBC Clumps Few H (None) /hpf Hyaline Casts 1 (0-2) /lpf Urine Mucus Rare H (None) /hpf Coronavirus (PCR) (Not Detectd) 04/19/22 04/19/22 04/19/22 Range/Units 15:48 15:48 15:48 WBC (3.8-10.6) k/uL RBC (4.30-5.90) m/uL Hgb (13.0-17.5) gm/dL Hct (39.0-53.0) % MCV (80.0-100.0) fL MCH (25.0-35.0) pg MCHC (31.0-37.0) g/dL RDW (11.5-15.5) % Plt Count (150-450) k/uL MPV Neutrophils % % Lymphocytes % % Monocytes % % Eosinophils % % Basophils % % Neutrophils # (1.3-7.7) k/uL Lymphocytes # (1.0-4.8) k/uL Monocytes # (0-1.0) k/uL Eosinophils # (0-0.7) k/uL Basophils # (0-0.2) k/uL PT (9.0-12.0) sec INR (<1.2) APTT (22.0-30.0) sec Sodium 132 L (137-145) mmol/L Potassium 4.1 (3.5-5.1) mmol/L Chloride 104 (98-107) mmol/L Carbon Dioxide 26 (22-30) mmol/L Anion Gap 2 mmol/L BUN 15 (9-20) mg/dL Creatinine 0.88 (0.66-1.25) mg/dL Est GFR (CKD-EPI)AfAm >90 (>60 ml/min/1.73 sqM) Est GFR (CKD-EPI)NonAf 84 (>60 ml/min/1.73 sqM) Glucose 112 H (74-99) mg/dL Plasma Lactic Acid [place] 0.9 (0.7-2.0) mmol/L Calcium 8.6 (8.4-10.2) mg/dL Total Bilirubin 0.9 (0.2-1.3) mg/dL AST 38 (17-59) U/L ALT 56 H (4-49) U/L Alkaline Phosphatase 140 H (38-126) U/L Troponin I <0.012 (0.000-0.034) ng/mL NT-Pro-B Natriuret Pep pg/mL Total Protein 5.2 L (6.3-8.2) g/dL Albumin 2.7 L (3.5-5.0) g/dL Urine Color Urine Appearance (Clear) Urine pH (5.0-8.0) Ur Specific [place] (1.001-1.035) Urine Protein (Negative) Urine Glucose (UA) (Negative) Urine Ketones (Negative) Urine Blood (Negative) Urine Nitrite (Negative) Urine Bilirubin (Negative) Urine Urobilinogen (<2.0) mg/dL Ur Leukocyte Esterase (Negative) Urine RBC (0-5) /hpf Urine WBC (0-5) /hpf Urine WBC Clumps (None) /hpf Hyaline Casts (0-2) /lpf Urine Mucus (None) /hpf Coronavirus (PCR) (Not Detectd) 04/19/22 04/19/22 Range/Units 15:48 15:48 WBC (3.8-10.6) k/uL RBC (4.30-5.90) m/uL Hgb (13.0-17.5) gm/dL Hct (39.0-53.0) % MCV (80.0-100.0) fL MCH (25.0-35.0) pg MCHC (31.0-37.0) g/dL RDW (11.5-15.5) % Plt Count (150-450) k/uL MPV Neutrophils % % Lymphocytes % % Monocytes % % Eosinophils % % Basophils % % Neutrophils # (1.3-7.7) k/uL Lymphocytes # (1.0-4.8) k/uL Monocytes # (0-1.0) k/uL Eosinophils # (0-0.7) k/uL Basophils # (0-0.2) k/uL PT (9.0-12.0) sec INR (<1.2) APTT (22.0-30.0) sec Sodium (137-145) mmol/L Potassium (3.5-5.1) mmol/L Chloride (98-107) mmol/L Carbon Dioxide (22-30) mmol/L Anion Gap mmol/L BUN (9-20) mg/dL Creatinine (0.66-1.25) mg/dL Est GFR (CKD-EPI)AfAm (>60 ml/min/1.73 sqM) Est GFR (CKD-EPI)NonAf (>60 ml/min/1.73 sqM) Glucose (74-99) mg/dL Plasma Lactic Acid [place] (0.7-2.0) mmol/L Calcium (8.4-10.2) mg/dL Total Bilirubin (0.2-1.3) mg/dL AST (17-59) U/L ALT (4-49) U/L Alkaline Phosphatase (38-126) U/L Troponin I (0.000-0.034) ng/mL NT-Pro-B Natriuret Pep 125 pg/mL Total Protein (6.3-8.2) g/dL Albumin (3.5-5.0) g/dL Urine Color Urine Appearance (Clear) Urine pH (5.0-8.0) Ur Specific [place] (1.001-1.035) Urine Protein (Negative) Urine Glucose (UA) (Negative) Urine Ketones (Negative) Urine Blood (Negative) Urine Nitrite (Negative) Urine Bilirubin (Negative) Urine Urobilinogen (<2.0) mg/dL Ur Leukocyte Esterase (Negative) Urine RBC (0-5) /hpf Urine WBC (0-5) /hpf Urine WBC Clumps (None) /hpf Hyaline Casts (0-2) /lpf Urine Mucus (None) /hpf Coronavirus (PCR) Not Detected (Not Detectd) Critical Care Time Critical Care Time: Yes Total Critical Care Time: 32 Disposition Clinical Impression: Weakness, UTI (urinary tract infection) Disposition: HOME SELF-CARE Condition: Stable Instructions (If sedation given, give patient instructions): Urinary Tract Infection in Men (DC) Prescriptions: Ciprofloxacin HCl [Cipro] 500 mg PO Q12HR 14 Days #28 tab Is patient prescribed a controlled substance at d/c from ED?: No Referrals: Vamshi Iniguez MD [Primary Care Provider] - 1-2 days Time of Disposition: 19:05
--- NOTE | 2022-04-19 17:48 | CT ---
EXAMINATION TYPE: CT brain wo con CT DLP: 1648.8 mGycm, Automated exposure control for dose reduction was used. DATE OF EXAM: 04/19/2022 5:37 PM COMPARISON: Same day CTA angiogram head neck CLINICAL INDICATION:Male, 76 years old with history of weakness, r/o CVA, weakness TECHNIQUE: Brain: Axial CT images of the brain were obtained with coronal and sagittal reformats created and rev iewed. Contrast used: None. Oral contrast used: None. FINDINGS: Brain: Extra-axial spaces: No abnormal extra-axial fluid collections. Ventricular system: Within normal limits Cerebral parenchyma: No acute intraparenchymal hemorrhage or mass effect. The camejo-white junction is well differentiated. Scattered hypoattenuating areas are seen within the white matter. Cerebellum: Unremarkable. Mass effect: No evidence of midline shift. Intracranial vasculature: Atherosclerotic calcifications of the intracranial vessels. Soft tissues: Normal. Calvarium/osseous structures: No depressed skull fracture. Paranasal sinuses and mastoid air cells: Mild scattered paranasal sinus disease. Visualized orbits: Bilateral aphakia IMPRESSION: 1. No acute intracranial process. 2. Nonspecific white matter changes, likely secondary to chronic small vessel ischemic disease.
--- NOTE | 2022-04-19 17:53 | CT ---
EXAMINATION TYPE: CT angio head neck CT DLP: 1648.8 mGycm, Automated exposure control for dose reduction was used. DATE OF EXAM: 04/19/2022 5:38 PM COMPARISON: Same day CT. CLINICAL INDICATION:Male, 76 years old with history of Weakness, r/o CVA, weakness TECHNIQUE: Axially acquired helical CT angiogram of the head and neck was obtained with contrast. Axi al images are supplemented with 3D reconstructions which [facility] NASCET criteria used. Contrast used:65 mL of Isovue 300 with IV Contrast, Oral contrast used: None. FINDINGS: CTA HEAD: No evidence of acute intracranial hemorrhage, mass effect, or midline shift. The ventricles, sulci, a nd cisterns are unremarkable. The visualized portions of the internal carotid arteries, middle cerebral arteries, anterior cerebral arteries, and posterior cerebral arteries are patent. The basilar and vertebral arteries are patent. CTA NECK: Right Carotid System: The common carotid artery and external carotid artery are patent. The carotid bifurcation demonstrate s no evidence of hemodynamically significant stenosis. Mild calcified plaque. The remaining portions of the internal carotid artery demonstrate normal size without significant narrowing. Left Carotid System: The common carotid artery and external carotid artery are patent. The carotid bifurcation demonstrate s no evidence of hemodynamically significant stenosis. Mild calcified plaque. The remaining portions of the internal carotid artery demonstrate normal size without significant narrowing. Vertebral arteries are patent without evidence hemodynamically significant stenosis. There is a three-vessel aortic arch. The origins of the great vessels are patent. No evidence of hemo dynamically significant stenosis. IMPRESSION: 1. No evidence of dissection of the cervical internal carotid arteries or vertebral arteries or any e vidence of significant stenosis at the carotid bifurcations. 2. No evidence of intracranial high-grade stenosis or intracranial aneurysm.
[2022-04-19 18:21] LABS: Appearance,Urine Cloudy (Clear); Bilirubin,Urine Negative (Negative); Blood,Urine Negative (Negative); Color,Urine Light Yellow; Glucose,Urine (UA) Negative (Negative); Hyaline Casts,Urine 1 /lpf (0-2); Ketones,Urine Negative (Negative); Leukocyte Esterase,Urine Large (Negative); Mucus,Urine Rare /hpf; Nitrite,Urine Negative (Negative); PH, Urine 7.5 (5.0-8.0); Protein,Urine Negative (Negative); RBC,Urine 2 /hpf (0-5); Specific Gravity,Urine 1.022 (1.001-1.035); Urobilinogen,Urine <2.0 mg/dL (<2.0); WBC,Urine 96 /hpf (0-5)
[2022-04-19] MEDS ORDERED: CIPROFLOXACIN HCL 500 MG TAB PO STA (18:57)
[2022-04-19 19:30] VITALS: BP 120/77; PULSE 60; TEMP 98.1
== END 2022-04-19 22:03 | disposition home or self-care (01) ==
LOC: EC 14:25
DX: N39.0 Urinary tract infection, site not specified (principal); I48.91 Unspecified atrial fibrillation; C80.1 Malignant (primary) neoplasm, unspecified; G45.9 Transient cerebral ischemic attack, unspecified; E78.5 Hyperlipidemia, unspecified; I10 Essential (primary) hypertension; G47.30 Sleep apnea, unspecified; Z87.891 Personal history of nicotine dependence; Z79.02 Long term (current) use of antithrombotics/antiplatelets; Z79.82 Long term (current) use of aspirin; Z79.899 Other long term (current) drug therapy
CPT/HCPCS: 36415; 93005; 83880; 80053; 83605; 84484; 85025; 85610; 85730; 81001; 87086; 87635; 71046; 70496; 70450; 70498; 99291; Q9967

== ENCOUNTER 2022-04-24 15:52 | Inpatient (IN) | payer MEDICARE ==
[2022-04-24 17:14] LABS: Basophils % (A) 0 %; Eosinophils # (A) 0.1 k/uL (0-0.7); Eosinophils % (A) 1 %; HCT 35.8 % (39.0-53.0); Lymphocytes # (A) 0.8 k/uL (1.0-4.8); Lymphocytes % (A) 8 %; MCH 33.4 pg (25.0-35.0); MCHC 33.5 g/dL (31.0-37.0); MCV 99.7 fL (80.0-100.0); Macrocytosis Slight; Mean Platelet Volume 7.6; Monocytes # (A) 0.8 k/uL (0-1.0); Monocytes % (A) 7 %; Neutrophils # (A) 8.6 k/uL (1.3-7.7); Neutrophils % (A) 83 %; Platelet Count 241 k/uL (150-450); RBC 3.59 m/uL (4.30-5.90); WBC 10.4 k/uL (3.8-10.6)
[2022-04-24 17:38] LABS: Albumin 2.7 g/dL (3.5-5.0); Calcium 8.6 mg/dL (8.4-10.2); Magnesium 1.9 mg/dL (1.6-2.3); Potassium 4.5 mmol/L (3.5-5.1); Total Bilirubin 0.9 mg/dL (0.2-1.3); Total Protein 5.1 g/dL (6.3-8.2)
[2022-04-24] MEDS ORDERED: NALOXONE 0.4 MG/ML 1 ML VIAL IV PRN (17:48)
--- NOTE | 2022-04-24 17:55 | ED ---
General Adult HPI - General Chief complaint: Neuro Symptoms/Deficit Stated complaint: weakness Time Seen by Provider: 04/24/22 16:08 Source: patient, EMS Mode of arrival: EMS Limitations: no limitations - History of Present Illness Initial comments: This is a 76-year-old male who presents emergency department via EMS for worsening weakness and difficulty eating. The patient was seen in the emergency department by myself last week for increasing weakness at which time he was diagnosed with a UTI. The patient and his stated that once he was disc harged back to the rehab facility, the patient continued to worsen and become more weak. The patient had decreased appetite and was able to eat solids as he does gag every time he eats. It is reported the patient had lost 20 pounds over the last several weeks. The patient was seen and evaluated by his primary care physician in the facility and there was concern for worsening weakness as well as increasing weakness of his right upper and right lower extremity. It was reported the patient's weakness has been progressive over the last several weeks and was not acutely changed the last 24 hours. There was concern for the patient's inability to eat so the patient was sent into the emergency department to get admitted to be evaluated by neurology, GI as well as ENT. It was also suggested to have an MRI of the brain ordered for further evaluation to rule out possible Parkinson's disease or ALS. On evaluation, the patient was resting in bed comfortably without any pain or complaints. The patient denied any new trauma and denied any lightheadedness, lightheadedness, fevers or chills. - Related Data Home Medications Medication Instructions Recorded Confirmed Amiodarone [Cordarone] 200 mg PO DAILY@0800 11/04/16 04/24/22 Aspirin EC [Ecotrin Low Dose] 81 mg PO DAILY@1200 11/04/16 04/24/22 Rivaroxaban [Xarelto] 15 mg PO DAILY@0800 11/04/16 04/24/22 Atorvastatin [Lipitor] 80 mg PO HS@2100 03/01/19 04/24/22 Cholecalciferol (Vitamin D3) 75 mcg PO DAILY@1700 03/25/22 04/24/22 [Vitamin D3 (3000 Iu)] Solifenacin Succinate 10 mg PO DAILY@0803/25/22 04/24/22 Tamsulosin HCl [Flomax] 0.4 mg PO DAILY@0800 03/25/22 04/24/22 lisinopriL [Zestril] 10 mg PO DAILY@0800 03/25/22 04/24/22 Ciprofloxacin HCl [Cipro] 500 mg PO BID@0800,2100 04/24/22 04/24/22 Cyanocobalamin [Vitamin B-12] 1,000 mcg PO DAILY@1700 04/24/22 04/24/22 Ensure Enlive 237 ml PO TID@0800,1200,1700 04/24/22 04/24/22 HYDROcodone/APAP 5-325MG [[place] 1 tab PO Q6HR PRN 04/24/22 04/24/22 5-325] Magnesium Hydroxide [Milk of 7,200 mg PO Q48H PRN 04/24/22 04/24/22 Magnesia Concentrate] Melatonin 1 mg PO HS@2100 04/24/22 04/24/22 Na Phos,M-B/Na Phos,Di-Ba [Fleet 133 ml RECTAL DAILY PRN 04/24/22 04/24/22 Adult] Ondansetron [Zofran] 4 mg PO Q8HR PRN 04/24/22 04/24/22 Sennosides [Senokot] 17.2 mg PO HS@209904/24/22 04/24/22 bisacodyL [Dulcolax] 10 mg RECTAL DAILY PRN 04/24/22 04/24/22 polyethylene glycoL 3350 [Miralax] 17 gm PO DAILY@0800 04/24/22 04/24/22 Allergies Allergy/AdvReac Type Severity Reaction Status Date / Time No Known Allergies Allergy Verified 04/24/22 17:10 Review of Systems ROS Statement: Those systems with pertinent positive or pertinent negative responses have been documented in the HPI. ROS Other: All systems not noted in ROS Statement are negative. 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 History of atrial fibrillation on Xarelto History of Any Multi-Drug Resistant Organisms: None Reported Past Surgical History: Heart Catheterization With Stent, Hernia Repair Additional Past Surgical History / Comment(s): one cardiac stent, irene cataracts, Past Anesthesia/Blood Transfusion Reactions: No Reported Reaction Additional Past Anesthesia/Blood Transfusion Reaction / Comment(s): PT NEVER HAS HAD A BLOOD TRANSFUSION. Date of Last Stent Placement:: 05/12/14 Past Psychological History: No Psychological Hx Reported Smoking Status: Former smoker Past Alcohol Use History: Rare Past Drug Use History: None Reported - Past Family History Mother Family Medical History: Coronary Artery Disease (CAD) Additional Family Medical History / Comment(s): MOTHER HAD CABG. SHE AT AGE 91 YRS. General Exam Limitations: no limitations General appearance: alert, in no apparent distress Head exam: Present: atraumatic, normocephalic Eye exam: Present: normal appearance, PERRL Pupils: Present: normal accommodation ENT exam: Present: normal exam, normal oropharynx, mucous membranes moist Neck exam: Present: normal inspection, full ROM Respiratory exam: Present: normal lung sounds bilaterally Cardiovascular Exam: Present: regular rate, normal rhythm, normal heart sounds GI/Abdominal exam: Present: soft, normal bowel sounds Extremities exam: Present: normal inspection, full ROM, other (Mild generalized weakness in all extremities however there is no acute deficits noted.) Back exam: Present: normal inspection, full ROM Neurological exam: Present: alert, oriented X3, CN II-XII intact Psychiatric exam: Present: normal affect, normal mood Skin exam: Present: warm, dry Course Vital Signs 04/24/22 15:57 Temperature 98.2 F Pulse Rate 64 Respiratory 16 Rate Blood Pressure 138/96 O2 Sat by Pulse 95 Oximetry Medical Decision Making - Medical Decision Making The patient was seen and evaluated in the emergency department. Physical exam, the patient was resting in bed without any acute distress. Due to the patient being sent in for further evaluation, the patient to basic laboratory workup obtained. His primary care physician, Dr. Iniguez, was contacted and he did recommend neurology evaluation, ENT as well as GI evaluation for possible PEG tube placement. They did order an MRI of the brain with and without contrast for further workup and evaluation of the patient's progressive weakness. The patient continued to remain stable and will be admitted under the care of his primary care physician. The patient and his agreed to this and were admitted in stable condition. - Lab Data Result diagrams: 04/24/22 17:05 04/24/22 17:05 Lab Results 04/24/22 04/24/22 Range/Units 17:05 17:05 WBC 10.4 (3.8-10.6) k/uL RBC 3.59 L (4.30-5.90) m/uL Hgb 12.0 L (13.0-17.5) gm/dL Hct 35.8 L (39.0-53.0) % MCV 99.7 (80.0-100.0) fL MCH 33.4 (25.0-35.0) pg MCHC 33.5 (31.0-37.0) g/dL RDW 14.0 (11.5-15.5) % Plt Count 241 (150-450) k/uL MPV 7.6 Neutrophils % 83 % Lymphocytes % 8 % Monocytes % 7 % Eosinophils % 1 % Basophils % 0 % Neutrophils # 8.6 H (1.3-7.7) k/uL Lymphocytes # 0.8 L (1.0-4.8) k/uL Monocytes # 0.8 (0-1.0) k/uL Eosinophils # 0.1 (0-0.7) k/uL Basophils # 0.0 (0-0.2) k/uL Macrocytosis Slight Sodium 130 L (137-145) mmol/L Potassium 4.5 (3.5-5.1) mmol/L Chloride 101 (98-107) mmol/L Carbon Dioxide 27 (22-30) mmol/L Anion Gap 2 mmol/L BUN 15 (9-20) mg/dL Creatinine 1.01 (0.66-1.25) mg/dL Est GFR (CKD-EPI)AfAm 83 (>60 ml/min/1.73 sqM) Est GFR (CKD-EPI)NonAf 72 (>60 ml/min/1.73 sqM) Glucose 120 H (74-99) mg/dL Calcium 8.6 (8.4-10.2) mg/dL Magnesium 1.9 (1.6-2.3) mg/dL Total Bilirubin 0.9 (0.2-1.3) mg/dL AST 26 (17-59) U/L ALT 44 (4-49) U/L Alkaline Phosphatase 110 (38-126) U/L Total Protein 5.1 L (6.3-8.2) g/dL Albumin 2.7 L (3.5-5.0) g/dL Disposition Clinical Impression: Weakness, Failure to thrive Disposition: ADMITTED IP TO THIS [facility] Condition: Stable Referrals: Vamshi Iniguez MD [Primary Care Provider] - 1-2 days Time of Disposition: 17:00 Decision to Admit Reason: Admit from EC Decision Date: 04/24/22 Decision Time: 17:00
[2022-04-24] MEDS ORDERED: MAGNESIUM HYDROXIDE 2,400 MG/10 ML CUP PO PRN (18:19)
[2022-04-24] MEDS ORDERED: NA PHOS,M-B/NA PHOS,DI-BA 133 ML ENEMA RECTAL PRN (18:19)
[2022-04-24] MEDS ORDERED: bisacodyL 10 MG SUPP RECTAL PRN (18:19)
[2022-04-24] MEDS: SODIUM CHLORIDE 0.9% 1,000 ML IV SCH (18:25)
--- NOTE | 2022-04-24 19:34 | P.HPIM ---
History of Present Illness H&P Date: 04/24/22 (Neurological deterioration, weight loss 30 pounds, unable to speak with the vocal cord questionable pallor paralysis.) Chief Complaint: Patient progressive neurological deterioration with inability to speak/heat This is a dictation on history and physical Date of service 04/24/2022. Patient seen [id number] in [facility] and rehab. And evaluated as well as trial of contacting the with no answer. Patient transferred to the emergency room and I spoke with Dr. Bowman about patient condition and the progressive deterioration. Subsequently patient seen by the ER physician different than Dr. Bowman and he called me and we discussed the case in detail with the current complain: Weight loss of 30 pounds over short., Inability to eat with the underlying otopharyngeal dysphagia patient underwent swallow study with a subacute program in [facility] and the report couldn't be obtained from the [facility] speech pathology. With the recommendation to be seen by the neurologist and ENT and gastroenterology. Patient and his was concerned about inability to eat and progressive deterioration of his generalized weakness and phonation which has been changed and he barely can get his voice up and need for for evaluation by the ENT to see the vocal cord is paralyzed versus tumor. Complain of severe debility progressed since that he has been in the retirement. Patient had passed a history of fall at home resulted in fracture of the right hip and subsequently underwent repair of the right hip with supper O arthroplasty of the hip joint subsequently descend to [facility] and rehab for rehabilitation initially able to continue rehab however regressed very fast subsequently and now he could not stand up or walk admitted to his phonation and the speech has been deteriorated with unknown reason and the of the suspicious of ALS versus progression of Parkinson disease and the need for n eurological evaluation in person and at that time patient referred to the ER for for further evaluation. Patient came to the ER approximately one week to 10 days and he was seen evaluated and he had computed tomography scan of the brain and the could not find new abnormality or stroke subsequently patient sent back to the [facility] they found in the ER that he had a UTI and the give him the treatment and to my recall that was Retzius mirabilis was sensitive to Cipro and the treated him with the Cipro. Today as I saw the patient he was in a chair he couldn't not do any re habilitation therapy all follow the try with him is significantly weakness and his speech is very for anoxic less than whisper and he could not get his voice to communicate and he was being prior to that able to communicate with his and able to walk a The board handler and dietitian complained that patient could not eat and with the speech pathology evaluation at [facility] found that he had dysphagia and with the phonetic of the vocal cords abnormalities with progression the underlying unclear the diagnosis. Patient had a stroke 5 years ago and with a history of atrial fibrillation and patient was seen by store associate as well and placed on amiodarone and Xarelto and we continue the same medication he was in the retirement for rehab and he did not see tag meter operator subsequently because of his presence of the retirement. 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 His has been very concern and this time patient admitted to the hospital with the consultation with the ENT, neurology in person, GI With that his dictating radiation of is eating the concern of having PICU was considered and as well as the motility of the esophagus and a GI also consulted. Review of system #1 patient concern of his condition and the progression of the weakness and inability to talk and inability to move. With the etiology unclear #2 denied any cough or expectoration or shortness of breath. #3 concern about his voice and inability to eat now is on pure after he used to be eating normally. #4 he had been on Xarelto and he had no evidence of bleeding anywhere. And no GI symptoms #5 history of atrial fibrillation on anticoagulant and has been followed in the past with the cardiology. #6 urinary incontinent #7 constipation line #8 no history of depression. #9 unable to walk and he had history of right hip arthroplasty but most of the people walk subsequently within 2-3 weeks. Physical exam: Head was normocephalic and atraumatic Pupil was equal reactive Oropharynx he has natural teeth and able to eat but he had difficulty of eating and the changed him to pure diet and try to avoid aspiration. Speech markedly deterioration with using the lip and almost whispering with the vocal cords questionable paralysis or partial paralysis etiology unknown. Neck: Supple no JVD no thyromegaly no lymphadenopathy trachea midline Chest clear to auscultation and percussion no wheezes no rhonchi's Heart: Irregular irregularities with the chronic atrial fibrillation. Abdomen: Soft nontender positive bowel sounds history of chronic constipation. Extremities: Right hip hemiarthroplasty by Dr. Evans due to traumatic Folling fracture supper O. No edema and positive pulses and impaired reflexes and inability to walk. Urologically: Cranial nerve could not be assessed and we are requesting neurological evaluation. Assessment: #1 progressive severe neurological debility with dysphagia and inability to walk, loss of weight more than 30 pounds.. Measured by the retirement. #2 dysphonia possibility of vocal cord paralysis etiology unknown. #3 esophageal motility abnormalities and the need for gastroenterology to evaluate the patient and if could not eat probably future plan for PEG tube insertion with the feeding. #4 atrial fibrillation currently controlled ventricular response. Plan: #1 we consulting neurology to be seen in person to evaluate for possibility of and as versus advance of Parkinson disease. #2MR I of the brain to evaluate the nuclear effect as a CAT scan did not show any changes with the deterioration of neurological findings and progressive debility. #3 consultation with gastroenterology for evaluation and treatment, #[address] Banks to evaluate the vocal cords and if there is any tumor versus nodes versus paralysis with the dysphonia which wasn't there before and the SNU events. #5 patient with history of hypertension, currently blood pressure is controlled however patient on lisinopril and sometimes lisinopril can cause some effect on the vocal cords and I will hold the medication for now as well. #6 patient may need for further studies depend on the consulting physician. 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 History of atrial fibrillation on Xarelto History of Any Multi-Drug Resistant Organisms: None Reported Past Surgical History: Heart Catheterization With Stent, Hernia Repair Additional Past Surgical History / Comment(s): one cardiac stent, irene cataracts, Past Anesthesia/Blood Transfusion Reactions: No Reported Reaction Additional Past Anesthesia/Blood Transfusion Reaction / Comment(s): PT NEVER HAS HAD A BLOOD TRANSFUSION. Date of Last Stent Placement:: 05/12/14 Smoking Status: Former smoker - Past Family History Mother Family Medical History: Coronary Artery Disease (CAD) Additional Family Medical History / Comment(s): MOTHER HAD CABG. SHE AT AGE 91 YRS. Medications and Allergies Home Medications Medication Instructions Recorded Confirmed Type Amiodarone [Cordarone] 200 mg PO DAILY@0800 11/04/16 04/24/22 History Aspirin EC [Ecotrin Low Dose] 81 mg PO DAILY@1200 11/04/16 04/24/22 History Rivaroxaban [Xarelto] 15 mg PO DAILY@0800 11/04/16 04/24/22 History Atorvastatin [Lipitor] 80 mg PO HS@2100 03/01/19 04/24/22 History Cholecalciferol (Vitamin D3) 75 mcg PO DAILY@1700 03/25/22 04/24/22 History [Vitamin D3 (3000 Iu)] Solifenacin Succinate 10 mg PO DAILY@0800 03/25/22 04/24/22 History Tamsulosin HCl [Flomax] 0.4 mg PO DAILY@0800 03/25/22 04/24/22 History lisinopriL [Zestril] 10 mg PO DAILY@0800 03/25/22 04/24/22 History Ciprofloxacin HCl [Cipro] 500 mg PO BID@0800,2100 04/24/22 04/24/22 History Cyanocobalamin [Vitamin B-12] 1,000 mcg PO DAILY@1700 04/24/22 04/24/22 History Ensure Enlive 237 ml PO TID@0800,1200,1700 04/24/22 04/24/22 History HYDROcodone/APAP 5-325MG [Merlin 1 tab PO Q6HR PRN 04/24/22 04/24/22 History 5-325] Magnesium Hydroxide [Milk of 7,200 mg PO Q48H PRN 04/24/22 04/24/22 History Magnesia Concentrate] Melatonin 1 mg PO HS@2100 04/24/22 04/24/22 History Na Phos,M-B/Na Phos,Di-Ba [Fleet 133 ml RECTAL DAILY PRN 04/24/22 04/24/22 History Adult] Ondansetron [Zofran] 4 mg PO Q8HR PRN 04/24/22 04/24/22 History Sennosides [Senokot] 17.2 mg PO HS@2100 04/24/22 04/24/22 History bisacodyL [Dulcolax] 10 mg RECTAL DAILY PRN 04/24/22 04/24/22 History polyethylene glycoL 3350 [Miralax] 17 gm PO DAILY@0800 04/24/22 04/24/22 History Allergies Allergy/AdvReac Type Severity Reaction Status Date / Time No Known Allergies Allergy Verified 04/24/22 17:10 Physical Exam Vitals: Vital Signs Temp Pulse Resp BP Pulse Ox 04/24/22 15:57 98.2 F 64 16 138/96 95 Intake and Output 04/24/22 04/24/22 04/24/22 06:59 14:59 22:59 Other: Weight 88.451 kg Results CBC & Chem 7: 04/24/22 17:05 04/24/22 17:05 Labs: Abnormal Lab Results - Last 24 Hours (Table) 04/24/22 04/24/22 Range/Units 17:05 17:05 RBC 3.59 L (4.30-5.90) m/uL Hgb 12.0 L (13.0-17.5) gm/dL Hct 35.8 L (39.0-53.0) % Neutrophils # 8.6 H (1.3-7.7) k/uL Lymphocytes # 0.8 L (1.0-4.8) k/uL Sodium 130 L (137-145) mmol/L Glucose 120 H (74-99) mg/dL Total Protein 5.1 L (6.3-8.2) g/dL Albumin 2.7 L (3.5-5.0) g/dL
[2022-04-24] MEDS: SENNOSIDES 8.6 MG TAB PO SCH (20:51)
[2022-04-24] MEDS: MELATONIN 1 MG TAB PO SCH (20:51)
[2022-04-24] MEDS: CIPROFLOXACIN HCL 500 MG TAB PO SCH (20:51)
[2022-04-24] MEDS: ATORVASTATIN 80 MG TAB PO SCH (20:51)
[2022-04-24 23:43] LABS: Appearance,Urine Clear (Clear); Bilirubin,Urine Negative (Negative); Blood,Urine Negative (Negative); Color,Urine Yellow; Glucose,Urine (UA) Negative (Negative); Ketones,Urine Negative (Negative); Leukocyte Esterase,Urine Negative (Negative); Nitrite,Urine Negative (Negative); PH, Urine 6.5 (5.0-8.0); Protein,Urine Negative (Negative); Urobilinogen,Urine <2.0 mg/dL (<2.0)
[2022-04-25] MEDS ORDERED: NON FORMULARY DRUG (Ensure Enlive 237 ML) PO SCH (08:00)
[2022-04-25] MEDS ORDERED: lisinopriL 10 MG TAB PO SCH (08:00)
[2022-04-25] MEDS: RIVAROXABAN 15 MG TAB PO SCH (08:01)
[2022-04-25] MEDS: CIPROFLOXACIN HCL 500 MG TAB PO SCH ×2 (08:01→23:43)
[2022-04-25] MEDS: AMIODARONE 200 MG TAB PO SCH (08:01)
[2022-04-25] MEDS: TAMSULOSIN 0.4 MG CAP.ER.24H PO SCH (08:02)
[2022-04-25] MEDS: TROSPIUM CHLORIDE 20 MG TABLET PO SCH (08:02)
[2022-04-25] MEDS: polyethylene glycoL 3350 17 GM POWD.PACK PO SCH (08:02)
[2022-04-25 09:17] LABS: African American GFR (CKD) >90 (>60 ml/min/1.73 sqM); Anion Gap 4 mmol/L; Blood Urea Nitrogen 13 mg/dL (9-20); Calcium 8.4 mg/dL (8.4-10.2); Carbon Dioxide 24 mmol/L (22-30); Chloride 104 mmol/L (98-107); Glucose 98 mg/dL (74-99); Magnesium 1.7 mg/dL (1.6-2.3); Non-African American GFR(CKD) 81 (>60 ml/min/1.73 sqM); Sodium 132 mmol/L (137-145)
--- NOTE | 2022-04-25 09:32 | P.CNNES ---
History of Present Illness Consult date: 04/25/22 Requesting physician: Darron Nicolas Reason for Consult: Increasing weakness, r/o Parkinsons vs ALS History of Present Illness: Patient is a 76-year-old right-handed male came to the hospital by ambulance yesterday at 3:52 PM because of generalized weakness, dysphagia and failure to thrive. Patient tells me that he has been in [facility] for last 30 days. He states that he broke his hip on 03/24/2022, for which he underwent right hip arthroplasty on 03/25/2022 and was discharged to rehab facility. Patient states that for the last 30 days he cannot use his right hand or right leg. His right leg feels very heavy, as if it is holding 1000 pounds. He denies any numbness, only weakness of the right arm and right leg. Patient says that he did suffer from a stroke in 2013, which affected his speech and balance. However there was no focal weakness. Patient denies any new slurred speech, diplopia, loss of vision, droopy eyelids, or droopy face, slurred speech or difficulty with breathing. He states that he can't eat solids, as he chokes. Patient came to the hospital on 04/19/2022 for generalized weakness, underwent testing as below and was sent back to the rehab facility with antibiotics for possible UTI. Patient however has significant weight loss, continue to be feeling very weak, therefore came back to the hospital yesterday. According to the EMS flow sheet, they arrived at the [facility], nursing staff informed of patient's neurological decline. Patient was alert and oriented 4. Patient was complaining of weight loss and generalized weakness. Patient has recently lost 20 pounds. Patient was on a liquid only diet due to vomiting. Patient should extremity weakness and was unable to ambulate. Patient was confined to a bed. Patient recently suffered from a fall and was admitted to the nursing facility for general physical rehabilitation. Patient developed these symptoms over last 3 weeks. Patient has history of a CVA with right-sided neurological deficits. Patient's blood pressure was 109/57, pulse is 65 respiration 14 saturation 94%. Blood test shows WBC 10.4 hemoglobin 12.0, platelets 241. Sodium 130 potassium 4.5, normal renal functions. Hepatic panel is normal, troponin negative. UA negative. Patient's last B12 is 358 on 03/27/2020, with vitamin D 31.4. TSH was elevated 1.890. CT head from 04/19/2022 shows no acute process. Nonspecific white matter changes likely secondary to chronic small vessel ischemic disease. I personally reviewed CT head, revealed evidence of an old lacunar infarct in the left basal ganglia. Also evidence of significant small vessel disease in bilateral centrum semiovale, particularly the left high frontal and parietal subcortical region. CTA of head and neck from 04/19/2022 shows no evidence of dissection of the cervical internal carotid arteries or vertebral arteries or any evidence of significant stenosis in the carotid bifurcations. No evidence of intracranial high-grade stenosis or intracranial aneurysm. 2-D echo from 03/26/2022 shows mild LVH with EF of 55%. Left atrial size is mildly increase in diameter. Patient's home medication includes amiodarone 200 mg daily, aspirin 81 mg, Xarelto 15 mg, Lipitor 80 mg, vitamin D, Flomax, lisinopril 10 mg, Zofran, melatonin, ensure, B12 1000 g orally daily, Cipro 500 mg twice a day and [place] 5/325 mg every 6 hours when necessary Patient says that he has hypertension but no diabetes. He does not smoke. Drinks alcohol very little about 1-2 drinks a week. Review of Systems Constitutional: Reports weight loss, Denies chills, Denies fever Eyes: denies blurred vision, denies pain Ears, nose, mouth and throat: Reports dysphagia, Denies headache, Denies odynophagia, Denies sore throat Cardiovascular: Denies chest pain, Denies shortness of breath Respiratory: Denies cough Gastrointestinal: Denies abdominal pain, Denies diarrhea, Denies nausea, Denies vomiting Integumentary: Denies pruritus, Denies rash Neurological: Reports as per HPI Psychiatric: Denies anxiety, Denies depression Endocrine: Reports weight change, Denies fatigue Hematologic/Lymphatic: Denies easy bruising Allergic/Immunologic: Denies persistent infections Past Medical History Past Medical History: Atrial Fibrillation, Cancer, CVA/TIA, Hyperlipidemia, Hypertension, Sleep Apnea/CPAP/BIPAP Additional Past Medical History / Comment(s): prostate cancer- tx with radiation 2019 , 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 History of atrial fibrillation on Xarelto History of Any Multi-Drug Resistant Organisms: None Reported Past Surgical History: Heart Catheterization With Stent, Hernia Repair Additional Past Surgical History / Comment(s): one cardiac stent, irene cataracts, Past Anesthesia/Blood Transfusion Reactions: No Reported Reaction Additional Past Anesthesia/Blood Transfusion Reaction / Comment(s): PT NEVER HAS HAD A BLOOD TRANSFUSION. Date of Last Stent Placement:: 05/12/14 Smoking Status: Former smoker - Past Family History Mother Family Medical History: Coronary Artery Disease (CAD) Additional Family Medical History / Comment(s): MOTHER HAD CABG. SHE AT AGE 91 YRS. Medications and Allergies Home Medications Medication Instructions Recorded Confirmed Type Amiodarone [Cordarone] 200 mg PO DAILY@0800 11/04/16 04/24/22 History Aspirin EC [Ecotrin Low Dose] 81 mg PO DAILY@1200 11/04/16 04/24/22 History Rivaroxaban [Xarelto] 15 mg PO DAILY@0800 11/04/16 04/24/22 History Atorvastatin [Lipitor] 80 mg PO HS@2100 03/01/19 04/24/22 History Cholecalciferol (Vitamin D3) 75 mcg PO DAILY@1700 03/25/22 04/24/22 History [Vitamin D3 (3000 Iu)] Solifenacin Succinate 10 mg PO DAILY@0800 03/25/22 04/24/22 History Tamsulosin HCl [Flomax] 0.4 mg PO DAILY@0800 03/25/22 04/24/22 History lisinopriL [Zestril] 10 mg PO DAILY@0800 03/25/22 04/24/22 History Ciprofloxacin HCl [Cipro] 500 mg PO BID@0800,2100 04/24/22 04/24/22 History Cyanocobalamin [Vitamin B-12] 1,000 mcg PO DAILY@1700 04/24/22 04/24/22 History Ensure Enlive 237 ml PO TID@0800,1200,1700 04/24/22 04/24/22 History HYDROcodone/APAP 5-325MG [[place] 1 tab PO Q6HR PRN 04/24/22 04/24/22 History 5-325] Magnesium Hydroxide [Milk of 7,200 mg PO Q48H PRN 04/24/22 04/24/22 History Magnesia Concentrate] Melatonin 1 mg PO HS@2100 04/24/22 04/24/22 History Na Phos,M-B/Na Phos,Di-Ba [Fleet 133 ml RECTAL DAILY PRN 04/24/22 04/24/22 History Adult] Ondansetron [Zofran] 4 mg PO Q8HR PRN 04/24/22 04/24/22 History Sennosides [Senokot] 17.2 mg PO HS@2100 04/24/22 04/24/22 History bisacodyL [Dulcolax] 10 mg RECTAL DAILY PRN 04/24/22 04/24/22 History polyethylene glycoL 3350 [Miralax] 17 gm PO DAILY@0800 04/24/22 04/24/22 History Allergies Allergy/AdvReac Type Severity Reaction Status Date / Time No Known Allergies Allergy Verified 04/24/22 17:10 Physical Examination - Vital Signs Vital Signs: Vital Signs Temp Pulse Pulse Resp BP BP Pulse Ox 04/25/22 06:58 98.9 F 67 17 113/66 94 L 04/25/22 02:00 98.3 F 73 16 115/72 95 04/24/22 20:00 98.2 F 63 16 132/69 94 L 04/24/22 18:55 86 16 98 04/24/22 15:57 98.2 F 64 16 138/96 95 Intake and Output 04/24/22 04/25/22 04/25/22 22:59 06:59 14:59 Intake Total 300 Output Total 550 Balance 300 -550 Intake: Oral 300 Output: Urine 550 Other: Voiding Method Urinal Weight 88.451 kg Patient is an elderly male, in no acute distress. Patient is alert awake oriented to time place and person. Speech and language functions are normal. Patient has lost his voice, which is chronic. Patient can name and repeat very well. No aphasia or dysarthria. Attention, concentration and fund of knowledge is adequate. Detail cognitive function testing deferred. On cranial nerve examination, pupils are equal, round and reacting to light, visual carroll are full on confrontation, with no neglect on double simultaneous stimulation. Extraocular muscles are intact with no nystagmus. Face is symmetric, tongue protrudes to the midline. Palatal elevation and sensation normal, hearing and facial sensation normal. Shoulder shrug is better on the left. Patient's strength of the tongue appears normal. No tongue fasciculations. Patient's strength of the upper and lower facial region also appears fairly normal. On muscle strength testing, there is a right pronator drift. Muscle strength is (right/left) deltoid 4+/5, biceps 4+/5, triceps 5-/5, transformation analyst 4/5. Hip flexion cannot be checked on the right, 4+ left. Ankle dorsiflexion 4+/5. Deep tendon reflexes are asymmetric (right/left) biceps 2+/1+, brachioradialis. 2+/1+, knees 1+/1+ and plantar is up on the right and downgoing on the left. Sensory to touch is equal with no neglect on double simultaneous stimulation. Cerebellar function showed mild ataxia for [id number] testing on the right, but not on the left. Cannot check for [id number] testing on the right because of recent hip fracture. Tone and bulk of muscles normal. No tremors at rest noted. No signs of Parkinson's. Gait deferred.. On general examination, there is no carotid bruit or murmur, S1-S2 audible. Chest is clear on consultation. Abdomen is soft nontender. No organomegaly, bowel sounds present. Peripheral pulses are present. No edema. Results - Laboratory Findings CBC and BMP: 04/24/22 17:05 04/25/22 08:26 Abnormal Lab Findings: Abnormal Labs 04/24/22 04/24/22 17:05 17:05 RBC 3.59 L Hgb 12.0 L Hct 35.8 L Neutrophils # 8.6 H Lymphocytes # 0.8 L Sodium 130 L Glucose 120 H Total Protein 5.1 L Albumin 2.7 L Assessment and Plan Assessment: * Subacute weakness of the right upper and lower extremity of 30 days duration. Examination revealed mild right hemiparesis mainly involving the arm and leg. Probable subacute CVA. * Dysphagia, possible from CVA, rule out esophageal dysmotility/neoplastic cause. No clinical evidence of Parkinson's disease. No clinical evidence of motor neuron disease/ALS. * Atrial fibrillation, on anticoagulation with Xarelto. * Hypertension * Hyperlipidemia * History of prostate cancer. Plan: * Check MRI of the brain with and without contrast to rule out CVA versus metastatic disease. * CTA of head and neck from 04/19/2022 shows no evidence of dissection of the cervical internal carotid arteries or vertebral arteries or any evidence of significant stenosis in the carotid bifurcations. No evidence of intracranial high-grade stenosis or intracranial aneurysm. * 2-D echo from 03/26/2022 shows mild LVH with EF of 55%. Left atrial size is mildly increase in diameter. * Check hemoglobin A1c, TSH, B12, fasting lipid panel, acetylcholine receptor antibodies. * Continue Xarelto for stroke prevention related to atrial fibrillation, and aspirin 81 mg daily. * PT OT. * Agree with GI consultation for EGD to evaluate for the cause of dysphagia and weight loss. Rule out neoplastic process/web/stenosis. * Neurology will follow. Thank you for the consult.
--- NOTE | 2022-04-25 11:34 | P.PN ---
Subjective Progress Note Date: 04/25/22 Principal diagnosis: Dysphagia Weight loss in a short period of time in the [facility] rehab. Severe neurological disease evaluation with a questionable CVA recurrence History of atrial fibrillation paroxysmal on anticoagulant. Currently normal sinus rhythm on the EKG done in the hospital Inability to walk. Neurologically involvement with the right sided weakness Hypertension controlled. 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 Status post right hemiarthroplasty of [facility] Progress note dictation Date of service 04/25/2022. Patient seen and evaluated [id number] today. Patient seen today by Dr. Wynne the neurologist and he did extensive evaluation and continue and order his MRI of the brain with and without contrast as well with the impression probably subacute stroke. Currently no evidence of Parkinson disease or evidence of. A LS disease. We consulted Dr. Post gastroenterology for evaluation of dysphagia as well as patient lost 30 pounds in a short time in the [facility] due to inability of to eat and choking. [facility] and rehab syndrome patient for evaluation by the speech pathology [facility] and he went for modified barium swallow and speech pathology and they recommended to be seen by neurology as well as ENT as well as gastroenterology. We did also ask for consultation with the ENT and we tried Dr. 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 Kyle Villa who indicating that his ability to speak and the vocal cord abnormalities not an urgent and patient can be seen as outpatient in the office for for further evaluation. Patient conscious alert oriented he has no food today and I have requested dietitian to help the patient for appropriate eating as well as discussed with the nursing staff and with the consultation over the speech pathology as well until seeing the gastroenterology. On exam: Patient is conscious alert oriented and he is aware of the neurology consult has been seen and he is waiting for the MRI as well and this will be done tomorrow for for further evaluation. Head was normocephalic and atraumatic pupils equal reactive conjunctiva was pink sclera nonicteric oropharynx natural teeth Neck was supple no JVD no thyromegaly no lymphadenopathy no bruits Chest is clear to auscultation percussion no wheezes no rhonchi's Heart regular sinus rhythm today and he has paroxysmal atrial fibrillation treated with amiodarone and Xarelto. Blood pressure controlled Abdomen: Soft positive bowel sounds no organ enlargement Extremities: No edema of the lower extremities ulcers is intact, Neurologically: Vocal cord abnormalities with underlying with the course of voice and could not get his voice up could be associated with the nuclear of the brain are neurologically associated and we consulted the ENT who stated that is not urgent problem and we will look at him as outpatient. Psychiatry stable Assessment: Inability to eat or swallow with dysphagia #2 subacute stroke was a right sided weakness hemiparesis #3 seen by the neurologist Dr. Wynne #4 atrial fibrillation currently in normal sinus rhythm #5 history of hypertension is controlled #6 inability to walk. We'll be consulting the physical therapy and occupational therapy and speech therapy MRI will be done tomorrow today is Thanksgiving. Dietitian consultation for adjustment of food that patient can swallow and tolerate. Objective - Vital Signs Vital signs: Vital Signs Temp 98.9 F 04/25/22 06:58 Pulse 67 04/25/22 06:58 Resp 17 04/25/22 06:58 BP 113/66 04/25/22 06:58 Pulse Ox 94 L 04/25/22 06:58 FiO2 Intake & Output 04/24/22 04/25/22 04/25/22 18:59 06:59 18:59 Intake Total 300 Output Total 550 Balance -250 Weight 88.451 kg Intake: Oral 300 Output: Urine 550 Other: Voiding Method Urinal - Labs CBC & Chem 7: 04/24/22 17:05 04/25/22 08:26 Labs: Abnormal Lab Results - Last 24 Hours (Table) 04/24/22 04/24/22 04/25/22 Range/Units 17:05 17:05 08:26 RBC 3.59 L (4.30-5.90) m/uL Hgb 12.0 L (13.0-17.5) gm/dL Hct 35.8 L (39.0-53.0) % Neutrophils # 8.6 H (1.3-7.7) k/uL Lymphocytes # 0.8 L (1.0-4.8) k/uL Sodium 130 L 132 L (137-145) mmol/L Glucose 120 H (74-99) mg/dL Total Protein 5.1 L (6.3-8.2) g/dL Albumin 2.7 L (3.5-5.0) g/dL
[2022-04-25] MEDS: ASPIRIN 81 MG PO SCH (11:39)
[2022-04-25] MEDS: SODIUM CHLORIDE 0.9% 1,000 ML IV SCH (11:40)
[2022-04-25 12:15] LABS: Basophils # (A) 0.02 X 10*3/uL (0.00-0.10); Basophils % (A) 0.2 %; Eosinophils % (A) 1.2 %; HCT 34.1 % (39.6-50.0); HGB 11.2 g/dL (13.0-17.0); Immature Grans, Automated 0.5 %; Lymphocytes # (A) 0.84 X 10*3/uL (0.90-5.00); MCH 33.1 pg (27.0-32.0); MCHC 32.8 g/dL (32.0-37.0); MCV 100.9 fL (80.0-97.0); Mean Platelet Volume 9.9 fL (9.5-12.2); Monocytes # (A) 0.88 X 10*3/uL (0.20-1.00); Monocytes % (A) 10.5 %; NRBC Per 100 WBC 0 /100 WBCS (0.0-0.0); Neutrophils # (A) 6.53 X 10*3/uL (1.80-7.70); Neutrophils % (A) 77.6 %; Platelet Count 230 X 10*3/uL (140-440); RBC 3.38 X 10*6/uL (4.40-5.60); RDW 14.2 % (11.5-14.5); WBC 8.41 X 10*3/uL (4.50-10.00)
[2022-04-25] MEDS: CHOLECALCIFEROL 25 MCG (1000 IU) TABLET PO SCH (17:25)
[2022-04-25] MEDS: CYANOCOBALAMIN 500 MCG TAB PO SCH (17:25)
[2022-04-25] MEDS: ATORVASTATIN 80 MG TAB PO SCH (23:26)
[2022-04-25] MEDS: SENNOSIDES 8.6 MG TAB PO SCH (23:26)
[2022-04-25] MEDS: MELATONIN 1 MG TAB PO SCH (23:43)
[2022-04-26] MEDS: polyethylene glycoL 3350 17 GM POWD.PACK PO SCH (07:35)
[2022-04-26] MEDS: AMIODARONE 200 MG TAB PO SCH (07:35)
[2022-04-26] MEDS: TROSPIUM CHLORIDE 20 MG TABLET PO SCH (07:35)
[2022-04-26] MEDS: TAMSULOSIN 0.4 MG CAP.ER.24H PO SCH (07:35)
[2022-04-26] MEDS: RIVAROXABAN 15 MG TAB PO SCH (07:35)
[2022-04-26] MEDS: CIPROFLOXACIN HCL 500 MG TAB PO SCH ×2 (07:35→21:07)
[2022-04-26 09:07] LABS: Chol/HDL Ratio 2.36 Ratio; LDL Cholesterol,Calculated 43.7 mg/dL (0.0-131.0); VLDL Calculation 9.12 mg/dL (5.00-40.00)
--- NOTE | 2022-04-26 11:19 | MR ---
EXAMINATION TYPE: MR brain wo/w con DATE OF EXAM: 04/26/2022 COMPARISON: HISTORY: Worsening weakness TECHNIQUE: Multiplanar, multisequence images of the brain and brainstem is performed without and with IV contras t, utilizing 9 mL intravenous Gadavist . FINDINGS: Diffusion weighted images demonstrate multiple small subcentimeter foci of abnormal signal involving the white matter of the bilateral parietal lobes, right occipital lobe, and left basal gang meseret.. There is moderate generalized degenerative change of diffuse confluent numerous focal areas of abnorm al signal in white matter is nonspecific but most remote white matter ischemia. There is a vague area of enhancement related to one of the areas noted within the parietal white tyler er fusion may be associated with subacute infarction. This should be followed on short-term basis or resolution. There is enhancement along the left frontal parietal calvarium corresponding to lytic lesion. Correla te for history of malignancy. A multiple myeloma or metastasis differential diagnosis. Area of enhanc ement measures approximately 1.6 cm in greatest axis. There is an area of blooming artifact primarily no corresponding calcification noted by recent CT scan. This may represent a tiny area of remote hem orrhage. Midline structures demonstrate normal morphology. The craniocervical junction appears within normal limits. Post contrast images demonstrate no abnormal enhancement. The dural venous sinuses appear pa tent. The changes of mild chronic sinusitis and the globes are intact. Prominent posterior fossa cyst may represent a prominent cisterna magna or small arachnoid cyst. Report was called to patient's vibha se at 11:10 AM 04/26/2022. IMPRESSION: 1. There are multiple subcentimeter areas of abnormal signal seen on diffusion imaging compatible wit h acute ischemia seen scattered throughout the white matter bilaterally. 2. There is a focus of subcentimeter enhancement corresponding to an area of diffusion restriction wi thin the right parietal white matter too small to characterize. May represent an area of subacute isc hemia. Following follow to resolution recommended to exclude other etiologies including metastases. 3. There is an area of abnormal signal enhancement involving the left frontal parietal calvarium rani uring 1.6 cm. Corresponds to a lucent area by CT scan. Metastasis or multiple myeloma within the diff erential diagnosis. Correlate clinically. 4. Degenerative and diffuse nonspecific white matter change most typical of remote ischemia.
[2022-04-26] MEDS: SODIUM CHLORIDE 0.9% 1,000 ML IV SCH ×2 (13:27→13:31)
[2022-04-26] MEDS: ASPIRIN 81 MG PO SCH (13:30)
[2022-04-26] MEDS: CYANOCOBALAMIN 500 MCG TAB PO SCH (16:44)
[2022-04-26] MEDS: CHOLECALCIFEROL 25 MCG (1000 IU) TABLET PO SCH (16:45)
[2022-04-26] MEDS: ATORVASTATIN 80 MG TAB PO SCH (21:06)
[2022-04-26] MEDS: SENNOSIDES 8.6 MG TAB PO SCH (21:07)
[2022-04-26] MEDS: MELATONIN 1 MG TAB PO SCH (21:07)
[2022-04-26] MEDS: HYDROcodone/APAP 5-325MG 1 EACH TAB PO PRN (21:13)
--- NOTE | 2022-04-26 21:14 | P.PN ---
Subjective Progress Note Date: 04/26/22 Dictation progress note date of service 04/26/2022 Patient seen [id number] today Discussed with the patient in the hospital I did discuss it with his in detail on the phone with extended time spent. MRI of the brain reviewed and discussed with Dr. Wynne the neurologist. MRI indicating acute ischemia bilateral hemisphere however more effect with the hemiparesis on the right side clinically and represent more concerted of showering of emboli to the brain after the discussion with the neurologist who already consulted the afloat cryptologic manager to evaluate. I did discuss with the that we are waiting for the gastroenterology Dr. Araceli Anderson for evaluation with the probable upper endoscopy as well as probable PICC tube feeding placement because of the patient inability to eat with the neurological effect on swallowing and choking and weight loss with significant calorie deficiency. Also Dr. Wynne neurologist consulted the afloat cryptologic manager for evaluation and for 30 treatment for the multiple emboli of the brain despite that patient currently on Xarelto. And if any other anticoagulant will be expected or not. This patient seen today he told me that his try to help him to eat lunch was very difficult and he feels choking as well as when I uncover the lunchtime still the food not appear to be touched. We have IV fluid for hydration and patient started diabetic probably will check tomorrow and may change IV fluid to D5 0.9 normal saline after we check his BMP and a CBC with differential. On the physical exam: Patient conscious alert able to answer questions with the whispering voice which has been started since his first stroke 4 or 5 years ago. The head was normocephalic and atraumatic, pupil was equal reactive, oropharynx natural teeth, he had eye gag reflex Neck was supple no JVD no thyromegaly no lymphadenopathy Chest: Was clear to auscultation and percussion no evidence of aspiration so far and the previous test at [facility] for dysphagia was indicating no aspiration the severe difficulties of swallowing with the oropharyngeal face, consultation with dietitian as well as speech therapy in [facility] on this admission requested as well. For his inability to speak with requested ENT however the denied the consultation and stating that's not emergency Heart he had paroxysmal atrial fibrillation, on admission EKG was normal sinus rhythm, on exam today was regular sinus rhythm. With the previous echo his 55% ejection fraction Abdomen: Soft positive bowel sounds no organ enlargement. Genitourinary: He had Luo catheter with inability to control his urine, actually he felt leaking around the catheter as well In regard to his bowel movement he denied bowel movement and apparently he had chronic constipation. Neurologically: He had decreased significantly right hand eeo officer and right sided movement of the lower extremities, he had in the past right hip hemiarthroplasty due to fracture of the supple With all of the femoral head was repaired by Dr. Morales. Psychiatry stable Assessment: #1 bilateral hemispheric showering of multiple emboli with the underlying paroxysmal atrial fibrillation #2 associated with right-sided hemiparesis, dysphagia with weight loss, exacerbation or worsening of his voice was whispering. #3 hypertension controlled and we did hold lisinopril because of the side effects however apparently he doesn't have no part into his voice as his voice started 5 years ago and now is worsening probably will resuming his lisinopril again for his blood pressure and the heart #4 inability to walk and the essence-paresis of the right upper and lower may need for further future rehabilitation and PEG tube placement discussed with his as well. #5 history of prostate cancer has been treated with radiation therapy in the past with a questionable if any of these could be related to and unclear with the MRI. #6 dehydration secondary to dysphagia and decreased intake. Plan: #1 waiting for the cardiology evaluation and if the patient need MANISHA for for further finding if he had any emboli in the appendages of the heart causing these showering and the question for the cardiology if anything the offer currently patient on Xarelto. #2 waiting for gastroenterology Monica Agosto for evaluation and probable e ndoscopy EGD, and underlying PEG tube placement as I did discuss it with the who stated that she entertained did with her and they are in agreeable thoughts tell Dr. Araceli Anderson decided. #3 continue the rehabilitation #4 continue the speech pathology and adjusting the diet meanwhile starting the feeding per PEG tube once we have Dr. Monica Charles decided for the PEG tube #5 with the significant discussion on the phone with his and she stated that she had appointment with Dr. Banks next week on Friday and advised that weight no change and keep that appointment until we see and at that time we may have to delayed if the patient needs to be staying in the hospital. #6 patient has been seen in the past by Dr. Orlando Parada and his made appointment to be seen by Dr. Parada neurologist in mid May and I did advise her not to cancel it because by time he may need for further follow-up as outpatient to continue the care. #7 we'll obtain tomorrow laboratories BMP with a history of low sodium on admission and a CBC with differential to assess his electrolyte imbalance and dehydration Objective - Vital Signs Vital signs: Vital Signs Temp 100.1 F H 04/26/22 18:50 Pulse 80 04/26/22 18:50 Resp 20 04/26/22 18:50 BP 177/75 04/26/22 18:50 Pulse Ox 96 04/26/22 18:50 FiO2 Intake & Output 04/26/22 04/26/22 04/27/22 06:59 18:59 06:59 Intake Total 1050 Output Total 1450 550 Balance -1450 500 Weight 88.451 kg Intake: Intake, IV Titration 750 Amount Sodium Chloride 0.9% 1, 750 000 ml @ 75 mls/hr IV . [id number] [facility] Rx#:[id number] Oral 300 Output: Urine 1450 550 Other: Voiding Method Urinal Indwelling Catheter # Voids 3 - Labs CBC & Chem 7: 04/25/22 08:26 04/25/22 08:26 Labs: Abnormal Lab Results - Last 24 Hours (Table) 04/24/22 Range/Units 17:05 HDL Cholesterol 38.90 L (40.00-60.00) mg/dL
[2022-04-27] MEDS: SODIUM CHLORIDE 0.9% 1,000 ML IV SCH ×2 (04:31→14:20)
[2022-04-27] MEDS: TROSPIUM CHLORIDE 20 MG TABLET PO SCH (07:24)
[2022-04-27] MEDS: polyethylene glycoL 3350 17 GM POWD.PACK PO SCH (07:24)
[2022-04-27] MEDS: AMIODARONE 200 MG TAB PO SCH (07:24)
[2022-04-27] MEDS: RIVAROXABAN 15 MG TAB PO SCH (07:24)
[2022-04-27] MEDS: TAMSULOSIN 0.4 MG CAP.ER.24H PO SCH (07:24)
--- NOTE | 2022-04-27 08:34 | XR ---
EXAMINATION TYPE: XR chest 2V DATE OF EXAM: 04/27/2022 COMPARISON: 04/17/2022 HISTORY: Dysphagia, rule out aspiration TECHNIQUE: Frontal and lateral views of the chest are obtained. FINDINGS: There is minimal focal interstitial prominence in the left midlung zone possibly indicating mild atel ectasis. Early pneumonic infiltrate not entirely excluded. There are no infiltrates in the lung bases . There is no pleural effusion or pneumothorax. The heart size is normal and the vasculature is not congested. There is a large amount of free air beneath the right hemidiaphragm, not present on the prior study. IMPRESSION: 1. Interval development of a large amount of free air beneath right hemidiaphragm. 2. Interval development of mild focal interstitial prominence in the left midlung consistent with ate lectasis or possible early infiltrate. 3. No infiltrates in the lung bases.
--- NOTE | 2022-04-27 08:45 | P.PN ---
Subjective Progress Note Date: 04/26/22 Patient was seen for a follow-up. Denies any new neurological symptoms. He did used to have weakness on the right side. No headache, no dizziness. Objective - Vital Signs Vital signs: Vital Signs Temp 98.3 F 04/26/22 07:23 Pulse 69 04/26/22 08:00 Resp 17 04/26/22 07:23 BP 136/66 04/26/22 07:23 Pulse Ox 93 L 04/26/22 07:23 FiO2 Intake & Output 04/25/22 04/26/22 04/26/22 18:59 06:59 18:59 Output Total 700 1450 Balance -700 -1450 Output: Urine 700 1450 Other: Voiding Method Urinal Indwelling Catheter - Exam Patient's examination remains unchanged. - Labs CBC & Chem 7: 04/25/22 08:26 04/25/22 08:26 Labs: Abnormal Lab Results - Last 24 Hours (Table) 04/24/22 04/25/22 04/25/22 Range/Units 17:05 08:26 08:26 RBC 3.38 L (4.40-5.60) X 10*6/uL Hgb 11.2 L (13.0-17.0) g/dL Hct 34.1 L (39.6-50.0) % MCV 100.9 H (80.0-97.0) fL MCH 33.1 H (27.0-32.0) pg Lymphocytes # 0.84 L (0.90-5.00) X 10*3/uL HDL Cholesterol 38.90 L (40.00-60.00) mg/dL Vitamin B12 1603.0 H (200.0-944.0) pg/mL Assessment and Plan Assessment: * Acute, subacute strokes, multiple involving bilateral hemispheric region, likely cardioembolic. Patient has mild to moderate right hemiparesis. * Dysphagia, possible from CVA, rule out esophageal dysmotility/neoplastic cause. No clinical evidence of Parkinson's disease. No clinical evidence of motor neuron disease/ALS. 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 * Atrial fibrillation, on anticoagulation with Xarelto. * Hypertension * Hyperlipidemia * History of prostate cancer. Plan: * MRI of the brain with and without contrast revealed multiple subcentimeter areas of abnormal signal seen on diffusion imaging compatible with acute ischemia seen scattered throughout the white matter bilaterally. There is a focus of subcentimeter it has been corresponding to an area of diffusion re striction within the right parietal white matter to small to characterize. May represent an area of subacute ischemia. There is an 80 of abnormal signal enhancement involving the left frontal parietal calvarium measuring 1.6 cm. Discussed possible lucent area by computed tomography scan. Metastasis of multiple myeloma within the differential diagnosis. Correlate clinically. * Recommend cardiology consultation to evaluate for multiple ischemic strokes, despite being on Xarelto and aspirin. Patient states that he may have missed one dose of Xarelto before his fall and hip fracture, which may have contributed to the CVA. * Internal medicine to address to rule out metastatic disease/myeloma. * CTA of head and neck from 04/19/2022 shows no evidence of dissection of the cervical internal carotid arteries or vertebral arteries or any evidence of significant stenosis in the carotid bifurcations. No evidence of intracranial high-grade stenosis or intracranial aneurysm. * 2-D echo from 03/26/2022 shows mild LVH with EF of 55%. Left atrial size is mildly increase in diameter. * Hemoglobin A1c 5.0, B12 1603, folic acid 5.0, fasting lipid panel cholesterol 92, LDL 43, HDL 38 and triglycerides 45, acetylcholine receptor antibodies and TSH pending. We will start folate replacement. * Continue Xarelto for stroke prevention related to atrial fibrillation, and aspirin 81 mg daily. * PT OT. * Agree with GI consultation for EGD to evaluate for the cause of dysphagia and weight loss. Rule out neoplastic process/web/stenosis. * Discussed with primary physician.
[2022-04-27 10:05] LABS: African American GFR (CKD) >90 (>60 ml/min/1.73 sqM); Anion Gap 4 mmol/L; Blood Urea Nitrogen 15 mg/dL (9-20); Calcium 8.1 mg/dL (8.4-10.2); Carbon Dioxide 22 mmol/L (22-30); Chloride 102 mmol/L (98-107); Glucose 92 mg/dL (74-99); Magnesium 1.7 mg/dL (1.6-2.3); Non-African American GFR(CKD) 85 (>60 ml/min/1.73 sqM); Potassium 4.1 mmol/L (3.5-5.1); Sodium 128 mmol/L (137-145)
[2022-04-27 10:25] LABS: Basophils % (A) 0 %; Eosinophils % (A) 0 %; HCT 35.3 % (39.0-53.0); HGB 12.3 gm/dL (13.0-17.5); Lymphocytes # (A) 0.4 k/uL (1.0-4.8); Lymphocytes % (A) 5 %; MCH 34.1 pg (25.0-35.0); MCHC 34.7 g/dL (31.0-37.0); MCV 98.1 fL (80.0-100.0); Mean Platelet Volume 7.9; Monocytes # (A) 0.5 k/uL (0-1.0); Monocytes % (A) 7 %; Neutrophils # (A) 6.3 k/uL (1.3-7.7); Neutrophils % (A) 86 %; Platelet Count 207 k/uL (150-450); RDW 13.7 % (11.5-15.5); WBC 7.3 k/uL (3.8-10.6)
[2022-04-27] MEDS: ASPIRIN 81 MG PO SCH (10:45)
--- NOTE | 2022-04-27 14:50 | P.PN ---
Subjective Progress Note Date: 04/27/22 (Air under the right hemidiaphragm and the chest x- ray) Progress note date of service 04/27/2022. Patient seen [id number] and evaluated. Chest x-ray indicating large Air accumulation under the right hemidiaphragm etiology is unknown. I did speak was today in regards PEG tube placement she accepted and her as well and Christy Agosto she is unavailable and patient could not eat was dysphagia. I did consult surgical service Dr. Parham who is on-call today to homero and his report of the chest x-ray with air under diaphragm as well as need for endoscopy and PEG tube placement as well. Patient is not complaining of abdominal pain however these finding. With the chest x-ray. Head normocephalic and atraumatic, patient conscious alert oriented. Oropharynx is normal with natural teeth and he had underlying speech abnormality with dysphonia with the underlying disease associated with stroke The MRI was clear with bilateral stroke could be associated with paroxysmal atrial fibrillation and the neurologist Dr. Wynne did consult cardiology for evaluation and treatment however we don't have yet response. Patient himself prostrated because he could not eat or swallow without choking. Neck was supple no JVD no thyromegaly no lymphadenopathy trachea midline. Chest: Normal breath sounds and the chest x-ray was done and the finding on the computer Heart: Regular with intermittent atrial fibrillation. Abdomen right upper quadrant in the diverticulum percussion but no tenderness bowel sound is diminished x-ray of the chest indicating collection of air under the right hemidiaphragm We'll consult Dr. Parham for evaluation also for EGD and placement of PEG tube with the underlying dysphagia. Extremities: Right upper and in the right lower extremities weakness with the stroke acute and become bilateral hemispheric. Neurologically patient had dysphagia with multiple small chartering bolus hemisphere however affected more the right side. Family did see patient today indicating that the patient probably has depression and we requested the psychiatrist to see him for evaluation and treatment. Assessment: #1 Event with the chest x-ray indicating air under the diaphragm and will proceed with x-rays of the abdomen for clarification and consultation with Dr. Parham general surgeon. #[address] Parham for evaluation of endoscopy and placement of a tube as well because of underlying dysphagia and weight loss and inability to eat. #3 underlying history of atrial fibrillation treated by cardiology and with the apparently showering of all emboli to both hemispheres E neurologist consulted the district resource officer to evaluate and treat and to see if any other modality for preventing this finding as well as probable MANISHA consultation was requested yesterday by Dr. Wynne neurologist. #4 GI consultation was requested however Dr. Charles, slip box changer not available on these holidays for evaluation. Plan: #1 I did speak with the in regards of PEG tube placement and consultation with the surgeon Dr. Parham and she agreed as well as the patient. #2 when I reviewed the x-ray of the chest found the large air under the right hemidiaphragm and that's concerned me and we'll be consulting the surgeon Dr. Parham as well for these reasons. #3 will continue the service for rehabilitation speech pathology as well as consultation with Dr. Parham. #4 obtaining x-ray of the abdomen to clarify the issue of the collection of air until seen by Dr. Dean. Objective - Vital Signs Vital signs: Vital Signs Temp 98.1 F 04/27/22 07:54 Pulse 66 04/27/22 07:54 Resp 16 04/27/22 07:54 BP 161/74 04/27/22 07:54 Pulse Ox 94 L 04/27/22 07:54 FiO2 Intake & Output 04/26/22 04/27/22 04/27/22 18:59 06:59 18:59 Intake Total 1050 600 Output Total 550 Balance 500 600 Weight 88.451 kg Intake: Intake, IV Titration 750 600 Amount Sodium Chloride 0.9% 1, 750 600 000 ml @ 75 mls/hr IV . [id number] [facility] Rx#:[id number] Oral 300 Output: Urine 550 Other: Voiding Method Indwelling Catheter # Voids 3 1 4 - Labs CBC & Chem 7: 04/27/22 09:01 04/27/22 09:01 Labs: Abnormal Lab Results - Last 24 Hours (Table) 04/27/22 04/27/22 Range/Units 09:01 09:01 RBC 3.60 L (4.30-5.90) m/uL Hgb 12.3 L (13.0-17.5) gm/dL Hct 35.3 L (39.0-53.0) % Lymphocytes # 0.4 L (1.0-4.8) k/uL Sodium 128 L (137-145) mmol/L Calcium 8.1 L (8.4-10.2) mg/dL
[2022-04-27] MEDS: IOPAMIDOL CONTRAST (ORAL USE) VIAL PO PRN ×2 (15:37→16:36)
[2022-04-27] MEDS: DEXTROSE 5%-0.9% NACL 1,000 ML IV SCH (15:38)
--- NOTE | 2022-04-27 17:46 | CT ---
EXAMINATION TYPE: CT abdomen pelvis w con DATE OF EXAM: 04/27/2022 COMPARISON: 11/21/2020 HISTORY: free air on am CXR CT DLP: 1289.4 mGycm Automated exposure control for dose reduction was used. CONTRAST: Performed with IV Contrast, patient injected with 100ml mL of Isovue 300. Images obtained from the diaphragm to the floor the pelvis with oral and intravenous contrast. There is some infiltrate or atelectasis at the posterior lung bases. Heart size is top normal. No per icardial effusion. Liver spleen pancreas appear intact. The bile ducts are not dilated. Gallbladder i s intact. There are small calcified gallstones. There is no adrenal mass. Kidneys have normal size. There is mild renal cortical thinning. There is a 4 cm cortical cyst lateral left kidney. There is 7 cm cortical cyst lower pole left kidney. There ar e multiple bilateral small renal cortical cysts. No retroperitoneal adenopathy. Ureters are nondilate d. Delayed images show no sign of obstruction. There is right hip prosthesis. No free fluid in the pe lvis. The bladder distends smoothly. No sign of a pelvic mass. There are apparent prostate implants o r surgical clips. No mesenteric edema. No ascites. No evidence of free air. The lumbar vertebra. Intact. No compression fracture. Bony pelvis intact. IMPRESSION: No evidence of free air. Renal cortical cysts. No renal solid mass or obstruction. Atherosclerotic va scular disease. Bilateral basilar pulmonary infiltrates and atelectasis. Cholelithiasis. No adverse change compared to the old exam.
[2022-04-27] MEDS: CYANOCOBALAMIN 500 MCG TAB PO SCH (17:58)
[2022-04-27] MEDS: CHOLECALCIFEROL 25 MCG (1000 IU) TABLET PO SCH (17:58)
--- NOTE | 2022-04-27 18:23 | P.CN ---
Psychiatric Consult - . Consult date: 04/27/22 Consult:: 04/27/22 17:14 IDENTIFYING DATA: This patient is a 76 -year-old male REASON FOR REFERRAL: Psychiatry was consulted for depression and lack of appetite HISTORY OF PRESENT ILLNESS: The patient presented to the hospital on 04/24/22 for weakness and difficulty eating. Neurology on board. MRI of the brain with and without contrast revealed multiple subcentimeter areas of abnormal signal seen on diffusion imaging compatible with acute ischemia seen scattered throughout the white matter bilaterally. There is a focus of subcentimeter it has been corresponding to an area of diffusion restriction within the right parietal white matter to small to characterize. May represent an area of subacute ischemia. There is an 80 of abnormal signal enhancement involving the left frontal parietal calvarium measuring 1.6 cm. CXR on 04/27 demonstrated free air under R hemidiaphragm. CT Abd/pelvis 04/27/22 did not indicate free air. Medicine team is considering PEG tube placement. Damien was seen bedside this evening after CT. He is A&Ox4. He reports that following his surgery, he has been placed at [facility] for the past month. He reports that he has been frustrated living there because he was used to living with his at home. He also states he has been having trouble feeding himself with his hands and has been concerned about dysphagia. Prior to being at [facility], patient denies a history of depressed mood or anxiety. However, over the past 1 month, he endorses feeling that things are "tough". He says that he has a roommate that won't turn off the TV and this has been causing him to have trouble sleeping at night. Prior to being at [facility], he reports good sleep without any insomnia. He states he does not like ground meals and therefore has been disinterested in eating. He reports reduced appetite over the past month since he has been at [facility]. Patient has also not been engaging in usual activities including spending time with friends and has been feeling bored while he has been at [facility]. The patient denies being excessively worried. At this time patient denies any suicidal or homicidal ideations, intent or plan. Patient denies any auditory, visual hallucinations and denies any paranoia or delusions. This provider spoke with his over the phone with patient's verbal consent. His Ania says that she has noticed a decline in his mood over the past 1-2 weeks since his decline in physical health. She has been concerned that he said to his son to take care of her well. PAST PSYCHIATRIC HISTORY: Patient denies being on any psychiatric medications. Patient denies any previous psychiatric hospitalizations. Patient denies any psychiatric outpatient follow-up. Patient denies any history of suicide attempts in the past. 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 History of atrial fibrillation on Xarelto History of Any Multi-Drug Resistant Organisms: None Reported Past Surgical History: Heart Catheterization With Stent, Hernia Repair Additional Past Surgical History / Comment(s): one cardiac stent, irene cataracts, ALLERGIES: as per EMR. CHEMICAL DEPENDENCY HISTORY: as per HPI. Patient reports occasional alcohol use. He reports having smoked tobacco for 10 years but has not smoked in 40 years. He denies other substance use FAMILY PSYCHIATRIC/SUBSTANCE USE HISTORY: Patient denies SOCIAL HISTORY: Patient was born and raised in [place]. 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 He was living in a condo with his who is his power of research asst (her Ania). He has one son and a [id number]. Patient likes to spend mornings drinking coffee with his friends. MENTAL STATUS EXAM: General Appearance: Patient appears to be stated age is alert, pleasant, and cooperative. Patient appears to have fair hygiene and grooming wearing hospital gown with poor eye contact and staring at the TV Behavior: Patient is calmly lying in bed without any agitated behavior. Speech: Patient's speech is fluent and nonpressured. Mood/Affect: Patient reports their mood is "tough", affect is congruent Suicidality/Homicidality: Patient denies having any suicidal or homicidal ideation intent or plan. Perceptions: Patient denies any visual hallucinations and denies any auditory hallucinations Though content/process: There is no evidence of any delusional thought content and thought process is linear and goal-directed. Memory and concentration: AOX3, grossly intact for the purposes of this session. 2/3 word recall Judgment and insight: fair IMPRESSIONS: Adjustment disorder with depressed mood PLAN: -At this time patient DOES NOT meet criteria for inpatient psychiatric admissi on. -Patient DOES have decision making capacity at this time -Would recommend the following medication changes/additions: Start Remeron 7.5 mg qHS. Will monitor for dizziness or worsening hyponatremia. Risks versus benefits discussed with patient and . Both are amenable with this plan. - Recommend to discuss follow-up placement with social work -Communicated plan to patient's nurse -Neuro, Cardio, GI on board -Will continue to follow along -Please contact with any questions. 04/27/22 18:09
--- NOTE | 2022-04-27 19:11 | P.CRDCN ---
History of Present Illness History of present illness: HISTORY OF PRESENT ILLNESS: This is a 76-year-old male with a past medical history significant for coronary artery disease with previous angioplasty of LAD, nonsustained ventricular tachy cardia, paroxysmal atrial fibrillation, hypertension, and hyperlipidemia. Patient follows in the office with Dr. Post. Patient had recent right hip fracture approximately 1 month ago and anticoagulation was briefly held. He is anticoagulated on an outpatient basis with Xarelto with mention of 15mg daily dosing per chart. Patient presented 04/24 with worsening weakness and difficulty eating. He has been at the rehab center however has had difficulty with eating solid foods and concern of aspiration and has lost approximately 20 pounds. He was seen by neurologist with concern for stroke and had a brain MRI 04/26 with multiple subcentimeter areas compatible with acute ischemia bilaterally. Neurology recommended cardiology evaluation for cardiac source of emboli. REVIEW OF SYSTEMS: At the time of my exam: CONSTITUTIONAL: Denies fever or chills. HEENT: Denies blurred vision, vision changes, or eye pain. Denies hemoptysis CARDIOVASCULAR: Denies chest pain. Denies orthopnea. Denies PND. Denies palpitations RESPIRATORY: Denies shortness of breath. GASTROINTESTINAL: Denies abdominal pain. Denies nausea or vomiting. HEMATOLOGIC: Denies bleeding disorders. GENITOURINARY: Denies any blood in urine. SKIN: Denies pruitis. Denies rash. PHYSICAL EXAM: VITAL SIGNS: Reviewed. GENERAL: Well-developed in no acute distress. HEENT: Head is normocephalic. Pupils are equal, round. Sclerae anicteric. Mucous membranes of the mouth are moist. Neck supple. No JVD or thyromegaly LUNGS: Respirations even and unlabored. Lungs essentially clear to auscultation bilaterally. HEART: Regular rate and rhythm. S1 and S2 heard. + systolic and diastolic murmur. ABDOMEN: Soft. Nondistended. Nontender. EXTREMITIES: No clubbing or cyanosis. Peripheral pulses intact. No lower extremity edema NEUROLOGIC: Awake and alert. Oriented x 3. ASSESSMENT: Bilateral CVA concerning for cardio embolic etiology Previous hip fracture Paroxysmal atrial fibrillation, currently sinus Hypertension Hyperlipidemia Coronary artery disease with previous stenting of the LAD History of nonsustained ventricular tachycardia Valvular heart disease including moderate to severe aortic regurgitation PLAN: Patient has been taking Xarelto with brief hold after his hip surgery. Multiple strokes with most likely etiology atrial fibrillation and unclear if failure of Xarelto, unclear of dosing. Verify as he should be on 20 mg a day dosing. For completeness sake discussed recommendations for MANISHA to further identify and rule out any other abnormalities, PFO. Patient is agreeable and likely MANISHA 04/29. 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 History of atrial fibrillation on Xarelto History of Any Multi-Drug Resistant Organisms: None Reported Past Surgical History: Heart Catheterization With Stent, Hernia Repair Additional Past Surgical History / Comment(s): one cardiac stent, irene cataracts, Past Anesthesia/Blood Transfusion Reactions: No Reported Reaction Additional Past Anesthesia/Blood Transfusion Reaction / Comment(s): PT NEVER HAS HAD A BLOOD TRANSFUSION. Date of Last Stent Placement:: 05/12/14 Smoking Status: Former smoker - Past Family History Mother Family Medical History: Coronary Artery Disease (CAD) Additional Family Medical History / Comment(s): MOTHER HAD CABG. SHE AT AGE 91 YRS. Medications and Allergies Home Medications Medication Instructions Recorded Confirmed Type Amiodarone [Cordarone] 200 mg PO DAILY@0800 11/04/16 04/24/22 History Aspirin EC [Ecotrin Low Dose] 81 mg PO DAILY@1200 11/04/16 04/24/22 History Rivaroxaban [Xarelto] 15 mg PO DAILY@0800 11/04/16 04/24/22 History Atorvastatin [Lipitor] 80 mg PO HS@2100 03/01/19 04/24/22 History Cholecalciferol (Vitamin D3) 75 mcg PO DAILY@1700 03/25/22 04/24/22 History [Vitamin D3 (3000 Iu)] Solifenacin Succinate 10 mg PO DAILY@0800 03/25/22 04/24/22 History Tamsulosin HCl [Flomax] 0.4 mg PO DAILY@0800 03/25/22 04/24/22 History lisinopriL [Zestril] 10 mg PO DAILY@0800 03/25/22 04/24/22 History Ciprofloxacin HCl [Cipro] 500 mg PO BID@0800,2100 04/24/22 04/24/22 History Cyanocobalamin [Vitamin B-12] 1,000 mcg PO DAILY@1700 04/24/22 04/24/22 History Ensure Enlive 237 ml PO TID@0800,1200,1700 04/24/22 04/24/22 History HYDROcodone/APAP 5-325MG [[place] 1 tab PO Q6HR PRN 04/24/22 04/24/22 History 5-325] Magnesium Hydroxide [Milk of 7,200 mg PO Q48H PRN 04/24/22 04/24/22 History Magnesia Concentrate] Melatonin 1 mg PO HS@2100 04/24/22 04/24/22 History Na Phos,M-B/Na Phos,Di-Ba [Fleet 133 ml RECTAL DAILY PRN 04/24/22 04/24/22 History Adult] Ondansetron [Zofran] 4 mg PO Q8HR PRN 04/24/22 04/24/22 History Sennosides [Senokot] 17.2 mg PO HS@2100 04/24/22 04/24/22 History bisacodyL [Dulcolax] 10 mg RECTAL DAILY PRN 04/24/22 04/24/22 History polyethylene glycoL 3350 [Miralax] 17 gm PO DAILY@0800 04/24/22 04/24/22 History Allergies Allergy/AdvReac Type Severity Reaction Status Date / Time No Known Allergies Allergy Verified 04/24/22 17:10 Physical Exam Vitals: Vital Signs Temp Pulse Resp BP Pulse Ox 04/27/22 14:00 98.3 F 74 16 149/70 95 04/27/22 07:54 98.1 F 66 16 161/74 94 L 04/27/22 01:27 99.5 F 71 18 135/67 93 L Intake and Output 04/27/22 04/27/22 04/27/22 06:59 14:59 22:59 Intake Total 600 Balance 600 Intake: Intake, IV Titration 600 Amount Sodium Chloride 0.9% 1, 600 000 ml @ 75 mls/hr IV . [id number] NOE Rx#:[id number] Other: # Voids 4 4 Results 04/27/22 09:01 04/27/22 09:01 CBC 04/27/22 Range/Units 09:01 WBC 7.3 (3.8-10.6) k/uL RBC 3.60 L (4.30-5.90) m/uL Hgb 12.3 L (13.0-17.5) gm/dL Hct 35.3 L (39.0-53.0) % Plt Count 207 (150-450) k/uL Comprehensive Metabolic Panel 04/27/22 Range/Units 09:01 Sodium 128 L (137-145) mmol/L Potassium 4.1 (3.5-5.1) mmol/L Chloride 102 (98-107) mmol/L Carbon Dioxide 22 (22-30) mmol/L BUN 15 (9-20) mg/dL Creatinine 0.84 (0.66-1.25) mg/dL Glucose 92 (74-99) mg/dL Calcium 8.1 L (8.4-10.2) mg/dL Current Medications Generic Name Dose Route Start Last Admin Trade Name Freq PRN Reason Stop Dose Admin Hydrocodone Bitart/Acetaminophen 1 each 04/24/22 18:19 04/26/22 21:13 Hydrocodone/Apap 5-325mg 1 Each Tab PO 1 each Q6HR PRN Administration Pain Amiodarone HCl 200 mg 04/25/22 08:00 04/27/22 07:24 Amiodarone 200 Mg Tab PO 200 mg DAILY@0800 [facility] Administration Aspirin 81 mg 04/25/22 12:00 04/27/22 10:45 Aspirin 81 Mg PO 81 mg DAILY@1200 NOE Administration Atorvastatin Calcium 80 mg 04/24/22 21:00 04/26/22 21:06 Atorvastatin 80 Mg Tab PO 80 mg HS@2100 NOE Administration Bisacodyl 10 mg 04/24/22 18:19 Bisacodyl 10 Mg Supp RECTAL DAILY PRN Constipation Cholecalciferol 75 mcg 04/25/22 17:00 04/27/22 17:58 Cholecalciferol 25 Mcg (1000 Iu) Tablet PO 75 mcg DAILY@1700 [facility] Administration Cyanocobalamin 1,000 mcg 04/25/22 17:00 04/27/22 17:58 Cyanocobalamin 500 Mcg Tab PO 1,000 mcg DAILY@1700 [facility] Administration Dextrose/Sodium Chloride 1,000 mls @ 75 mls/hr 04/27/22 15:00 04/27/22 15:38 Dextrose 5%-Ns Iv Soln IV 75 mls/hr .[id number] NOE Administration Melatonin 1 mg 04/24/22 21:00 04/26/22 21:07 Melatonin 1 Mg Tab PO 1 mg HS@2100 NO[facility] Administration Mirtazapine 7.5 mg 04/27/22 21:00 Mirtazapine 15 Mg Tab PO HS [facility] Naloxone HCl 0.2 mg 04/24/22 17:48 Naloxone 0.4 Mg/Ml 1 Ml Vial IV Q2M PRN Opioid Reversal Ondansetron HCl 4 mg 04/24/22 18:19 Ondansetron 4 Mg Tab PO Q8HR PRN Nausea And Vomiting Polyethylene Glycol 17 gm 04/25/22 08:00 04/27/22 07:24 Polyethylene Glycol 3350 17 Gm Powd.Pack PO 17 gm DAILY@0800 [facility] Administration Rivaroxaban 15 mg 04/25/22 08:00 04/27/22 07:24 Rivaroxaban 15 Mg Tab PO 15 mg DAILY@0800 [facility] Administration Protocol Senna 17.2 mg 04/24/22 21:00 04/26/22 21:07 Sennosides 8.6 Mg Tab PO 17.2 mg HS@2100 [facility] Administration Tamsulosin HCl 0.4 mg 04/25/22 08:00 04/27/22 07:24 Tamsulosin 0.4 Mg Cap.Er.24h PO 0.4 mg DAILY@0800 NO[facility] Administration Trospium 20 mg 04/25/22 08:00 04/27/22 07:24 Trospium Chloride 20 Mg Tablet PO 20 mg DAILY@0800 [facility] Administration Intake and Output 04/27/22 04/27/22 04/27/22 06:59 14:59 22:59 Intake Total 600 Balance 600 Intake: Intake, IV Titration 600 Amount Sodium Chloride 0.9% 1, 600 000 ml @ 75 mls/hr IV . [id number] [facility] Rx#:[id number] Other: # Voids 4 4 04/27/22 09:01 04/27/22 09:01
[2022-04-27] MEDS: SENNOSIDES 8.6 MG TAB PO SCH (20:43)
[2022-04-27] MEDS: ATORVASTATIN 80 MG TAB PO SCH (20:43)
[2022-04-27] MEDS: MELATONIN 1 MG TAB PO SCH (20:43)
[2022-04-27] MEDS ORDERED: MIRTAZAPINE 15 MG TAB PO SCH (21:00)
[2022-04-28] MEDS: DEXTROSE 5%-0.9% NACL 1,000 ML IV SCH ×2 (05:16→17:02)
[2022-04-28] MEDS: RIVAROXABAN 15 MG TAB PO SCH (08:28)
[2022-04-28] MEDS: AMIODARONE 200 MG TAB PO SCH (08:28)
[2022-04-28] MEDS: ASPIRIN 81 MG PO SCH (08:28)
[2022-04-28] MEDS: TROSPIUM CHLORIDE 20 MG TABLET PO SCH (08:28)
[2022-04-28] MEDS: TAMSULOSIN 0.4 MG CAP.ER.24H PO SCH (08:28)
[2022-04-28] MEDS: polyethylene glycoL 3350 17 GM POWD.PACK PO SCH (08:28)
--- NOTE | 2022-04-28 09:54 | P.GSCN ---
History of Present Illness Consult date: 04/28/22 Reason for Consult: Dysphagia, malnutrition, possible free air History of present illness: 76-year-old male admitted to the hospital because of difficulty eating. He was getting progressively weaker. History of previous stroke in the past. Dysphagia however has become more progressive. Patient is not eating much. Denies abdominal pain. Patient has an appointment see ENT this Friday as an outpatient. Neurology following as well at this time. We were consulted for possible free air after x-ray of the chest raised that possibility. We were also consulted for EGD and PEG tube placement. 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 History of atrial fibrillation on Xarelto History of Any Multi-Drug Resistant Organisms: None Reported Past Surgical History: Heart Catheterization With Stent, Hernia Repair Additional Past Surgical History / Comment(s): one cardiac stent, irene cataracts, Past Anesthesia/Blood Transfusion Reactions: No Reported Reaction Additional Past Anesthesia/Blood Transfusion Reaction / Comm: PT NEVER HAS HAD A BLOOD TRANSFUSION. Date of Last Stent Placement:: 05/12/14 Smoking Status: Former smoker - Past Family History Mother Family Medical History: Coronary Artery Disease (CAD) Additional Family Medical History / Comment(s): MOTHER HAD CABG. SHE AT AGE 91 YRS. Medications and Allergies Home Medications Medication Instructions Recorded Confirmed Type Amiodarone [Cordarone] 200 mg PO DAILY@0800 11/04/16 04/24/22 History Aspirin EC [Ecotrin Low Dose] 81 mg PO DAILY@1200 11/04/16 04/24/22 History Rivaroxaban [Xarelto] 15 mg PO DAILY@0800 11/04/16 04/24/22 History Atorvastatin [Lipitor] 80 mg PO HS@2100 03/01/19 04/24/22 History Cholecalciferol (Vitamin D3) 75 mcg PO DAILY@1700 03/25/22 04/24/22 History [Vitamin D3 (3000 Iu)] Solifenacin Succinate 10 mg PO DAILY@0800 03/25/22 04/24/22 History Tamsulosin HCl [Flomax] 0.4 mg PO DAILY@0800 03/25/22 04/24/22 History lisinopriL [Zestril] 10 mg PO DAILY@0800 03/25/22 04/24/22 History Ciprofloxacin HCl [Cipro] 500 mg PO BID@0800,2100 04/24/22 04/24/22 History Cyanocobalamin [Vitamin B-12] 1,000 mcg PO DAILY@1700 04/24/22 04/24/22 History Ensure Enlive 237 ml PO TID@0800,1200,1700 04/24/22 04/24/22 History HYDROcodone/APAP 5-325MG [[place] 1 tab PO Q6HR PRN 04/24/22 04/24/22 History 5-325] Magnesium Hydroxide [Milk of 7,200 mg PO Q48H PRN 04/24/22 04/24/22 History Magnesia Concentrate] Melatonin 1 mg PO HS@2100 04/24/22 04/24/22 History Na Phos,M-B/Na Phos,Di-Ba [Fleet 133 ml RECTAL DAILY PRN 04/24/22 04/24/22 History Adult] Ondansetron [Zofran] 4 mg PO Q8HR PRN 04/24/22 04/24/22 History Sennosides [Senokot] 17.2 mg PO HS@209904/24/22 04/24/22 History bisacodyL [Dulcolax] 10 mg RECTAL DAILY PRN 04/24/22 04/24/22 History polyethylene glycoL 3350 [Miralax] 17 gm PO DAILY@0800 04/24/22 04/24/22 History Allergies Allergy/AdvReac Type Severity Reaction Status Date / Time No Known Allergies Allergy Verified 04/24/22 17:10 Surgical - Exam Vital Signs Temp Pulse Resp BP Pulse Ox 98.2 F 64 16 138/96 95 04/24/22 15:57 04/24/22 15:57 04/24/22 15:57 04/24/22 15:57 04/24/22 15:57 Physical exam: General: Well-developed, somewhat malnourished and weak-appearing HEENT: Normocephalic, sclerae nonicteric Abdomen: Nontender, nondistended Extremities: No edema Neuro: Alert and oriented Results - Labs 04/27/22 09:01 04/27/22 09:01 Abnormal Lab Results - Last 24 Hours (Table) 04/27/22 04/27/22 Range/Units 09:01 09:01 RBC 3.60 L (4.30-5.90) m/uL Hgb 12.3 L (13.0-17.5) gm/dL Hct 35.3 L (39.0-53.0) % Lymphocytes # 0.4 L (1.0-4.8) k/uL Sodium 128 L (137-145) mmol/L Calcium 8.1 L (8.4-10.2) mg/dL Diabetes panel 04/27/22 Range/Units 09:01 Sodium 128 L (137-145) mmol/L Potassium 4.1 (3.5-5.1) mmol/L Chloride 102 (98-107) mmol/L Carbon Dioxide 22 (22-30) mmol/L BUN 15 (9-20) mg/dL Creatinine 0.84 (0.66-1.25) mg/dL Glucose 92 (74-99) mg/dL Calcium 8.1 L (8.4-10.2) mg/dL Calcium panel 04/27/22 Range/Units 09:01 Calcium 8.1 L (8.4-10.2) mg/dL Pituitary panel 04/27/22 Range/Units 09:01 Sodium 128 L (137-145) mmol/L Potassium 4.1 (3.5-5.1) mmol/L Chloride 102 (98-107) mmol/L Carbon Dioxide 22 (22-30) mmol/L BUN 15 (9-20) mg/dL Creatinine 0.84 (0.66-1.25) mg/dL Glucose 92 (74-99) mg/dL Calcium 8.1 L (8.4-10.2) mg/dL Adrenal panel 04/27/22 Range/Units 09:01 Sodium 128 L (137-145) mmol/L Potassium 4.1 (3.5-5.1) mmol/L Chloride 102 (98-107) mmol/L Carbon Dioxide 22 (22-30) mmol/L BUN 15 (9-20) mg/dL Creatinine 0.84 (0.66-1.25) mg/dL Glucose 92 (74-99) mg/dL Calcium 8.1 L (8.4-10.2) mg/dL Assessment and Plan (1) Dysphagia Narrative/Plan: 76-year-old male with dysphagia and protein calorie malnutrition. We'll proceed with EGD and PEG tube placement on Friday. Hold Siria. She had a CAT scan performed yesterday evening given the concern for free air and that showed colonic interposition. Case was discussed with both patient and his . Risks of bleeding, infection, scarring, catheter misplacement, bowel injury reviewed. They understand and wish to proceed. Current Visit: Yes Status: Acute Code(s): R13.10 - DYSPHAGIA, UNSPECIFIED SNOMED Code(s): 50365545
--- NOTE | 2022-04-28 11:49 | P.PN ---
Subjective Progress Note Date: 04/27/22 Patient was seen for a follow-up. States he feels "okay". Denies any new neurological symptoms. Patient continues to feel significant weakness of the right leg, feels like "", like a lot of weight on it. No headache or dizziness. Objective - Vital Signs Vital signs: Vital Signs Temp 98.3 F 04/27/22 14:00 Pulse 74 04/27/22 14:00 Resp 16 04/27/22 14:00 BP 149/70 04/27/22 14:00 Pulse Ox 95 04/27/22 14:00 FiO2 Intake & Output 04/26/22 04/27/22 04/27/22 18:59 06:59 18:59 Intake Total 1050 600 Output Total 550 Balance 500 600 Weight 88.451 kg Intake: Intake, IV Titration 750 600 Amount Sodium Chloride 0.9% 1, 750 600 000 ml @ 75 mls/hr IV . [id number] [facility] Rx#:[id number] Oral 300 Output: Urine 550 Other: Voiding Method Indwelling Catheter # Voids 3 1 4 - Exam Patient is alert and awake. Speech and language functions are normal. He speaks with a very low husky voice, which is chronic since his previous CVA. Cranial nerves are normal. Patient has right pronation, no drift. Patient's strength is (right/left) deltoid 4+/5, biceps 5/5, triceps 5/5, manager user experience 5-/5. Patient's abdomen is soft, nontender. No guarding. No organomegaly. - Labs CBC & Chem 7: 04/27/22 09:01 04/27/22 09:01 Labs: Abnormal Lab Results - Last 24 Hours (Table) 04/27/22 04/27/22 Range/Units 09:01 09:01 RBC 3.60 L (4.30-5.90) m/uL Hgb 12.3 L (13.0-17.5) gm/dL Hct 35.3 L (39.0-53.0) % Lymphocytes # 0.4 L (1.0-4.8) k/uL Sodium 128 L (137-145) mmol/L Calcium 8.1 L (8.4-10.2) mg/dL Assessment and Plan Assessment: * Acute, subacute strokes, multiple involving bilateral hemispheric region, likely cardioembolic. Patient has mild to moderate right hemiparesis. * Dysphagia, possible from CVA, rule out esophageal dysmotility/neoplastic ca use. No clinical evidence of Parkinson's disease. No clinical evidence of motor neuron disease/ALS. 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 * Atrial fibrillation, on anticoagulation with Xarelto. * Hypertension * Hyperlipidemia * History of prostate cancer. Plan: * MRI of the brain with and without contrast revealed multiple subcentimeter areas of abnormal signal seen on diffusion imaging compatible with acute ischemia seen scattered throughout the white matter bilaterally. There is a focus of subcentimeter enhancement corresponding to an area of diffusion restriction within the right parietal white matter too small to characterize. May represent an area of subacute ischemia. There is an area of abnormal signal enhancement involving the left frontal parietal calvarium measuring 1.6 cm. Corresponds to possible lucent area by computed tomography scan. Metastasis or multiple myeloma within the differential diagnosis. Correlate clinically. * Appreciate cardiology input. Recommending patient to be on Xarelto 20 mg daily. Currently on Xarelto 15 mg daily. Patient to undergo MANISHA on 04/29/2022. * Internal medicine to address to rule out ?metastatic disease/myeloma. * CTA of head and neck from 04/19/2022 shows no evidence of dissection of the cervical internal carotid arteries or vertebral arteries or any evidence of significant stenosis in the carotid bifurcations. No evidence of intracranial high-grade stenosis or intracranial aneurysm. * 2-D echo from 03/26/2022 shows mild LVH with EF of 55%. Left atrial size is mildly increase in diameter. * Hemoglobin A1c 5.0, B12 1603, folic acid 5.0, fasting lipid panel cholesterol 92, LDL 43, HDL 38 and triglycerides 45, acetylcholine receptor antibodies and TSH pending. We will start folate replacement. * Continue Xarelto for stroke prevention related to atrial fibrillation, and aspirin 81 mg daily. * PT OT. * Agree with GI consultation for EGD to evaluate for the cause of dysphagia and weight loss. Rule out neoplastic process/web/stenosis.
--- NOTE | 2022-04-28 13:57 | P.PN ---
Subjective HISTORY OF PRESENT ILLNESS: This is a 76-year-old male with a past medical history significant for coronary artery disease with previous angioplasty of LAD, nonsustained ventricular tachycardia, paroxysmal atrial fibrillation, hypertension, and hyperlipidemia. Patient follows in the office with Dr. Post. Patient had recent right hip fracture approximately 1 month ago and anticoagulation was briefly held. He is anticoagulated on an outpatient basis with Xarelto with mention of 15mg daily dosing per chart. Patient presented 04/24 with worsening weakness and difficulty eating. He has been at the rehab center however has had difficulty with eating solid foods and concern of aspiration and has lost approximately 20 pounds. He was seen by neurologist with concern for stroke and had a brain MRI 04/26 with multiple subcentimeter areas compatible with acute ischemia bilaterally. Neurology recommended cardiology evaluation for cardiac source of emboli. 04/28 Patient seen and examined. Patient denies any chest pain or pressure. No shortness breath. PHYSICAL EXAM: VITAL SIGNS: Reviewed. GENERAL: Well-developed in no acute distress. HEENT: Head is normocephalic. Pupils are equal, round. Sclerae anicteric. Mucous membranes of the mouth are moist. Neck supple. No JVD or thyromegaly LUNGS: Respirations even and unlabored. Lungs essentially clear to auscultation bilaterally. HEART: Regular rate and rhythm. S1 and S2 heard. + systolic and diastolic murmur. ABDOMEN: Soft. Nondistended. Nontender. EXTREMITIES: No clubbing or cyanosis. Peripheral pulses intact. No lower extremity edema NEUROLOGIC: Awake and alert. Oriented x 3. ASSESSMENT: Bilateral CVA concerning for cardio embolic etiology Previous hip fracture Paroxysmal atrial fibrillation, currently sinus Hypertension Hyperlipidemia Coronary artery disease with previous stenting of the LAD History of nonsustained ventricular tachycardia Valvular heart disease including moderate to severe aortic regurgitation PLAN: Patient has been taking Xarelto with brief hold after his hip surgery. Multifocal stroke with most likely etiology atrial fibrillation and unclear if failure of Xarelto, had been taking 15mg dosing. Recommend going home on Xarelto 20mg daily. Recommendations for MANISHA to further identify and rule out any other abnormalities, PFO. MANISHA likely 04/[address] Post. Objective - Vital Signs Vital signs: Vital Signs Temp 98.9 F 04/28/22 07:41 Pulse 69 04/28/22 07:50 Resp 16 04/28/22 07:50 BP 128/78 04/28/22 07:41 Pulse Ox 90 L 04/28/22 07:41 FiO2 Intake & Output 04/27/22 04/28/22 04/28/22 18:59 06:59 18:59 Intake Total 600 900 Output Total 1150 Balance 600 900 -1150 Intake: Intake, IV Titration 600 900 Amount Dextrose 5%-0.9% NaCl 1, 900 000 ml @ 75 mls/hr IV . [id number] [facility] Rx#:[id number] Sodium Chloride 0.9% 1, 600 000 ml @ 75 mls/hr IV . [id number] [facility] Rx#:[id number] Output: Urine 1150 Other: # Voids 4 3 - Labs CBC & Chem 7: 04/27/22 09:01 04/27/22 09:01
--- NOTE | 2022-04-28 14:00 | P.PN ---
Subjective Progress Note Date: 04/28/22 Progress note date of service 04/28/2022. Dictation by Dr. Talavera. Patient seen by cardiology Dr. Castellon, scheduled for tomorrow MANISHA by Dr. Charles. Drug Safety Physician. Or for further explanation of showering of emboli despite use of xarelto 15 mg daily. Patient with paroxysmal atrial fibrillation and currently he is sinus rhythm. Seen by psychiatry Gustabo VALLECILLO. With the impression adjustment disorder wi th depressed mood treated with Remeron 7.5 daily at bedtime. Seen by Dr. Parham surgeon evaluated the patient with computed tomography scan with no evidence of free air as well as he did evaluate for upper endoscopy and PEG tube placement which would be done on Friday. And hopefully patient able t o be discharged by that time where he will be and the following day Friday to see the ENT Dr. Layton his already made the appointment, we'll cancel the consult for Dr. Kyle Villa as he won't be seeing him as an inpatient. Also we he started post-PICC line the feeding with the senior php software developer and dietitian and will be able to see ENT for his evaluation of the vocal cords. He will be maintained follow-up with Dr. Orlando Parada neurologist as outpatient and I did discuss with the to keep that appointment. With the plan for shelter tomorrow [facility] post placement of the PEG tube. On the evaluation of the computed tomography scan the mentioned infiltrate however there is no evidence of infiltrate and is only atelectasis patient also did not have C Pap in the past but he had history of ex-smoker and his oxygen saturation is 90 and will start oxygen nasal cannula 2 L/m adjusted for 95 with the underlying history of COPD. Patient had multiple foci of embolization to the brain which is the etiology of hyponatremia with the possibility of SIADH, patient is euvolemic and he is not drinking or eating either trial feet and he need for further nutrition through PEG tube which will be planned by Friday. On the exam Vital sign temperature 98.9 oral and heart rate 69 sinus rhythm and respiratory rate 16/m nonlabored as well as his blood pressure 128/78 with the mean 94 and on the room air oxygen saturation is 90. Head was normocephalic and atraumatic, pupil was equal reactive, oropharynx natural teas able to eat and swallow with dysphagia and difficulty and need help with feeding. Neck supple no JVD no thyromegaly no lymphadenopathy trachea midline. Chest: Lung is negative bilaterally he had lower lung atelectasis but no evidence of pneumonia and no evidence of leukocytosis. Heart regular sinus rhythm with a history of paroxysmal atrial fibrillation seen by cardiology Dr. Castellon Abdomen: Soft nontender positive bowel sounds Luo catheter and placement with the underlying incontinent Extremities no edema and positive pulses. Psychiatry mild depression with adjustment disorder Neurology bilateral hemispheric acute stroke with the main effect right hemipare sis with multiple foci in both cerebral probably secondary to on embolization. Inability to stand or walk. Assessment and plan #1 in regard of dysphagia and weight loss, Dr. Parham general surgeon will do on Friday next week PEG tube placement with the EGD. #2 there is no free air in the abdomen by CT of the abdomen ordered by Dr. Parham Anselmo evaluated the patient #3 paroxysmal atrial fibrillation currently sinus seen today by Dr. 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 Patient currently on IV fluid D5 0.9 normal saline. May affect of the results. #5 continue rehabilitation #6 continue speech evaluation and treatment. #7 nutritional consult on follow-up with the plan for PEG tube feeding and calorie adjustment as the patient lost or than 20 pound and a short periods of all 4 weeks. Her shelter this inability to 8 and choking secondary to the strokes. #8 hypertension was controlled blood pressure today 128/78. Objective - Vital Signs Vital signs: Vital Signs Temp 98.9 F 04/28/22 07:41 Pulse 69 04/28/22 07:50 Resp 16 04/28/22 07:50 BP 128/78 04/28/22 07:41 Pulse Ox 90 L 04/28/22 07:41 FiO2 Intake & Output 04/27/22 04/28/22 04/28/22 18:59 06:59 18:59 Intake Total 600 900 Output Total 1150 Balance 600 900 -1150 Intake: Intake, IV Titration 600 900 Amount Dextrose 5%-0.9% NaCl 1, 900 000 ml @ 75 mls/hr IV . [id number] [facility] Rx#:[id number] Sodium Chloride 0.9% 1, 600 000 ml @ 75 mls/hr IV . [id number] [facility] Rx#:[id number] Output: Urine 1150 Other: # Voids 4 3 - Labs CBC & Chem 7: 04/27/22 09:01 04/27/22 09:01
[2022-04-28] MEDS: CYANOCOBALAMIN 500 MCG TAB PO SCH (17:02)
[2022-04-28] MEDS: CHOLECALCIFEROL 25 MCG (1000 IU) TABLET PO SCH (17:02)
--- NOTE | 2022-04-28 18:22 | P.PN ---
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 Patient was seen bedside this evening. He appears more sedated than yesterday at around the same time. Patient states that he slept very well with the medication. He says that he ate food that was brought in by his . Nursing staff reported that he ate breakfast. Patient denies side effects including dizziness with the current medication but appears to be somnolent today. He otherwise denies any other concerns and reports that he has been feeling better. He denies suicidal ideation, as asked and assessed. MENTAL STATUS EXAM: General Appearance: Patient appears to be stated age is alert but somnolent, pleasant, and cooperative. Patient appears to have fair hygiene and grooming wearing hospital gown with poor eye contact and staring at the TV Behavior: Patient is calmly lying in bed without any agitated behavior. Speech: Patient's speech is fluent and nonpressured. Mood/Affect: Patient reports their mood is "better", affect is congruent Suicidality/Homicidality: Patient denies having any suicidal or homicidal ideation intent or plan. Perceptions: Patient denies any visual hallucinations and denies any auditory hallucinations Though content/process: There is no evidence of any delusional thought content and thought process is linear and goal-directed. Memory and concentration: AOX3, grossly intact for the purposes of this session. 2/3 word recall yesterday Judgment and insight: fair IMPRESSIONS: Adjustment disorder with depressed mood PLAN: -At this time patient DOES NOT meet criteria for inpatient psychiatric admission. -Patient DOES have decision making capacity at this time -Would recommend the following medication changes/additions: Increase Remeron to 15 mg qHS because likely to be less sedated at increased dose. Will continue monitoring for worsening daytime sedating, dizziness or worsening hyponatremia. Risks versus benefits discussed with patient and . Both are amenable with this plan. - Recommend to discuss follow-up placement with social work -Communicated plan to patient's nurse -Neuro, Cardio, surgery on board -Will continue to follow along -Please contact with any questions.
[2022-04-28] MEDS: MELATONIN 1 MG TAB PO SCH (20:41)
[2022-04-28] MEDS: ATORVASTATIN 80 MG TAB PO SCH (20:41)
[2022-04-28] MEDS: MIRTAZAPINE 15 MG TAB PO SCH (20:42)
[2022-04-28] MEDS: SENNOSIDES 8.6 MG TAB PO SCH (20:42)
[2022-04-29] MEDS: ENOXAPARIN 30 MG/0.3 ML SYRINGE SQ SCH ×2 (06:24→18:06)
[2022-04-29] MEDS: DEXTROSE 5%-0.9% NACL 1,000 ML IV SCH ×2 (06:26→16:43)
[2022-04-29 07:17] LABS: African American GFR (CKD) >90 (>60 ml/min/1.73 sqM); Anion Gap 0 mmol/L; Blood Urea Nitrogen 11 mg/dL (9-20); Calcium 7.9 mg/dL (8.4-10.2); Carbon Dioxide 26 mmol/L (22-30); Chloride 104 mmol/L (98-107); Glucose 92 mg/dL (74-99); Non-African American GFR(CKD) 84 (>60 ml/min/1.73 sqM); Potassium 3.6 mmol/L (3.5-5.1); Sodium 130 mmol/L (137-145)
--- NOTE | 2022-04-29 09:22 | P.PN ---
Subjective This is a 76-year-old male with a past medical history significant for coronary artery disease with previous angioplasty of LAD, nonsustained ventricular tachycardia, paroxysmal atrial fibrillation, hypertension, and hyperlipidemia. Patient follows in the office with Dr. Post. Patient had recent right hip fracture approximately 1 month ago and anticoagulation was briefly held. He is anticoagulated on an outpatient basis with Xarelto with mention of 15mg daily dosing per chart. Patient presented 04/24 with worsening weakness and difficulty eating. He has been at the rehab center however has had difficulty with eating solid foods and concern of aspiration and has lost approximately 20 pounds. He was seen by neurologist with concern for stroke and had a brain MRI 04/26 with multiple subcentimeter areas compatible with acute ischemia bilaterally. Neurology recommended cardiology evaluation for cardiac source of emboli. 2-D echocardiogram in 03/26/2022 revealed EF 55%, mild mitral regurgitation, mild LVH. 04/29 Patient seen and examined at bedside, he is confused. Lethargic. Oriented x 0. Unable to answer questions appropriately or follow commands. Has no complaints. Patient denies any chest pain or pressure. No shortness breath. Telemetry reviewed patient remains in sinus rhythm. Possible plan for PEG tube PHYSICAL EXAM: VITAL SIGNS: Reviewed. GENERAL: Well-developed in no acute distress. HEENT: Head is normocephalic. Neck supple. No JVD LUNGS: Respirations even and unlabored. Lungs diminished in bases to auscult ation bilaterally. HEART: Regular rate and rhythm. S1 and S2 heard. + systolic and diastolic murmur. ABDOMEN: Soft. Nondistended. Nontender. EXTREMITIES: No clubbing or cyanosis. Peripheral pulses intact. No lower extremity edema NEUROLOGIC: Lethargic, A/O x 0. ASSESSMENT: Bilateral CVA concerning for cardio embolic etiology Previous hip fracture Paroxysmal atrial fibrillation, currently sinus Hypertension Hyperlipidemia Coronary artery disease with previous stenting of the LAD History of nonsustained ventricular tachycardia Valvular heart disease including moderate to severe aortic regurgitation Dysphagia, possible plan for PEG tube placement with surgery PLAN: Patient with increased lethargy and does not appear to be a candidate for MANISHA at this time, discussed with his primary tool crib manager Dr. Post and MANISHA canceled. Patient has been taking Xarelto with brief hold after his hip surgery. Multifocal stroke with most likely etiology atrial fibrillation and unclear if failure of Xarelto, had been taking 15mg dosing. Recommend going home on Xarelto 20mg daily. Neurology recommendations appreciated No further changes at this time from a cardiology perspective Nurse practitioner note has been reviewed by physician. Signing provider agrees with the documented findings, assessment, and plan of care. Objective - Vital Signs Vital signs: Vital Signs Temp 97.7 F 04/29/22 01:45 Pulse 63 04/29/22 01:45 Resp 14 04/29/22 01:45 BP 126/70 04/29/22 01:45 Pulse Ox 95 04/29/22 01:45 FiO2 Intake & Output 04/28/22 04/29/22 04/29/22 18:59 06:59 18:59 Output Total 1700 600 Balance -1700 -600 Output: Urine 1700 600 - Labs CBC & Chem 7: 04/27/22 09:01 04/29/22 05:56 Labs: Abnormal Lab Results - Last 24 Hours (Table) 04/29/22 Range/Units 05:56 Sodium 130 L (137-145) mmol/L Osmolality 273 L (280-301) mosm/kg Calcium 7.9 L (8.4-10.2) mg/dL
[2022-04-29] MEDS: polyethylene glycoL 3350 17 GM POWD.PACK PO SCH (09:28)
[2022-04-29] MEDS: TROSPIUM CHLORIDE 20 MG TABLET PO SCH (09:28)
[2022-04-29] MEDS: AMIODARONE 200 MG TAB PO SCH (09:29)
[2022-04-29] MEDS: TAMSULOSIN 0.4 MG CAP.ER.24H PO SCH (09:29)
--- NOTE | 2022-04-29 09:33 | P.PN ---
Subjective Progress Note Date: 04/28/22 Patient was seen for a follow-up. States he feels "okay". Denies any new neurological symptoms. Patient continues to feel significant weakness of the right leg, feels like "", like a lot of weight on it. No headache or dizziness. Telemetry monitoring showing sinus rhythm with heart rate 61. Objective - Vital Signs Vital signs: Vital Signs Temp 98.4 F 04/28/22 14:00 Pulse 62 04/28/22 14:00 Resp 16 04/28/22 14:00 BP 126/72 04/28/22 14:00 Pulse Ox 93 L 04/28/22 14:00 FiO2 Intake & Output 04/27/22 04/28/22 04/28/22 18:59 06:59 18:59 Intake Total 600 900 Output Total 1150 Balance 600 900 -1150 Intake: Intake, IV Titration 600 900 Amount Dextrose 5%-0.9% NaCl 1, 900 000 ml @ 75 mls/hr IV . [id number] [facility] Rx#:[id number] Sodium Chloride 0.9% 1, 600 000 ml @ 75 mls/hr IV . [id number] [facility] Rx#:[id number] Output: Urine 1150 Other: # Voids 4 3 - Exam Patient is alert and awake. Speech and language functions are normal. He speaks with a very low husky voice, which is chronic since his previous CVA. Cranial nerves are normal. Patient has right pronation, no drift. Patient's strength is (right/left) deltoid 4+/5, biceps 5/5, triceps 5/5, anesthesiologist physician 5-/5. Patient's abdomen is soft, nontender. No guarding. No organomegaly. - Labs CBC & Chem 7: 04/27/22 09:01 04/29/22 05:56 Assessment and Plan Assessment: * Acute, subacute strokes, multiple involving bilateral hemispheric region, l ikely cardioembolic. Patient has mild to moderate right hemiparesis. * Dysphagia, possible from CVA, rule out esophageal dysmotility/neoplastic cause. No clinical evidence of Parkinson's disease. No clinical evidence of motor neuron disease/ALS. 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 * Atrial fibrillation, on anticoagulation with Xarelto. * Hypertension * Hyperlipidemia * History of prostate cancer. Plan: * MRI of the brain with and without contrast revealed multiple subcentimeter areas of abnormal signal seen on diffusion imaging compatible with acute ischemia seen scattered throughout the white matter bilaterally. There is a focus of subcentimeter enhancement corresponding to an area of diffusion restriction within the right parietal white matter too small to characterize. May represent an area of subacute ischemia. There is an area of abnormal signal enhancement involving the left frontal parietal calvarium measuring 1.6 cm. Corresponds to possible lucent area by computed tomography scan. Metastasis or multiple myeloma within the differential diagnosis. Correlate clinically. Internal medicine to address to rule out ?metastatic disease/myeloma. * Appreciate cardiology input. Recommending patient to be on Xarelto 20 mg daily. Currently on Xarelto 15 mg daily. Patient to undergo MANISHA on 04/29/2022. * Patient's Xarelto has been put on hold starting tomorrow for possible EGD and PEG tube placement the day after, (on Friday). Recommend patient to be bridged with Lovenox due to high risk of recurrent strokes when anticoagulation is interrupted. Discussed with Dr Iniguez. Patient has received Xarelto 15 mg this morning. Patient will be started on Lovenox anticoagulation dosing from tomorrow morning. * CTA of head and neck from 04/19/2022 shows no evidence of dissection of the cervical internal carotid arteries or vertebral arteries or any evidence of significant stenosis in the carotid bifurcations. No evidence of intracranial high-grade stenosis or intracranial aneurysm. * 2-D echo from 03/26/2022 shows mild LVH with EF of 55%. Left atrial size is mildly increase in diameter. * Hemoglobin A1c 5.0, B12 1603, folic acid 5.0, fasting lipid panel cholesterol 92, LDL 43, HDL 38 and triglycerides 45, acetylcholine receptor antibodies and TSH pending. We will start folate replacement. * Continue Xarelto for stroke prevention related to atrial fibrillation, and aspirin 81 mg daily. * PT OT. * Agree with GI consultation for EGD to evaluate for the cause of dysphagia and weight loss. Rule out neoplastic process/web/stenosis.
--- NOTE | 2022-04-29 10:41 | P.CONS ---
History of Present Illness - Reason for Consult Consult date: 04/29/22 Dysphagia, possible PEG tube Requesting physician: Vamshi Iniguez - Chief Complaint Weakness and difficulty eating - History of Present Illness This is a pleasant 76-year-old male who initially came to the emergency department for evaluation of weakness difficulty eating on 04/24/2022. Apparently patient had a recent hospital admission for urinary tract infection was discharged to rehab and continued to have increased weakness and was brought back for further evaluation. 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 Apparently patient had been complaining of decreased appetite and difficulty with swallowing. He reportedly had approximately 20 pound weight loss in last menstruation. Patient had a CT of the abdomen and pelvis that reported no evidence of free air. Renal cortical cysts. No renal solid mass or obstruction. Arthrosclerotic vascular disease. Bilateral basilar pulmonary infiltrate and atelectasis. Cholelithiasis. Gastroenterology Consulted for dysphagia, possible PEG tube placement. Patient was seen and evaluated by speech therapy who reported that oral and pharyngeal phases of swallowing appear to be normal. With timing of swallow initiation with no signs or symptoms of as piration/penetration exhibited with trials. Patient had reported sensation of solid stevan crackers sticking however was able to clear with liquid wash. They have recommended patient be on a dysphagia level III chopped diet and thin liquids. However, Gen. surgery was also consulted regarding possible free air, EGD and PEG tube placement. Gen. surgery Dr. Dean has patient scheduled for EGD and PEG tube placement tomorrow. Patient is also admitted and being followed by neurology for acute, subacute stroke. Patient denies any abdominal pain, nausea or vomiting. He does state that it feels as if food is getting stuck and not going down. Review of Systems REVIEW OF SYSTEMS: CARDIOPULMONARY: No chest pain or shortness of breath. Gastrointestinal: No epigastric pain or abdominal pain. Patient is complaining of difficulty with swallowing, feels that food gets stuck. Reported approximately 20 pound weight loss. No nausea or vomiting. No hematemesis, c offee-ground emesis. No rectal bleeding, or melena. GENITOURINARY: No dysuria or hematuria. MUSCULOSKELETAL: Right leg feels heavy. SKIN: No rashes. No jaundice. ENDOCRINE: No chills, fevers. No excessive weight gain or loss. No polydipsia or polyuria. PSYCHIATRIC: Unremarkable. NEUROLOGY: No change in mental status. Denies dizziness, headache. Right-sided weakness, heaviness. Dysarthria, dysphagia. ENT: Vision unremarkable. CONSTITUTIONAL: Reported 20 pound weight loss over last 1 month duration. Increased fatigue and weakness. No fever, chills, night sweats. 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 History of atrial fibrillation on Xarelto History of Any Multi-Drug Resistant Organisms: None Reported Past Surgical History: Heart Catheterization With Stent, Hernia Repair Additional Past Surgical History / Comment(s): one cardiac stent, irene cataracts, Past Anesthesia/Blood Transfusion Reactions: No Reported Reaction Additional Past Anesthesia/Blood Transfusion Reaction / Comm: PT NEVER HAS HAD A BLOOD TRANSFUSION. Date of Last Stent Placement:: 05/12/14 Smoking Status: Former smoker - Past Family History Mother Family Medical History: Coronary Artery Disease (CAD) Additional Family Medical History / Comment(s): MOTHER HAD CABG. SHE AT AGE 91 YRS. Medications and Allergies Home Medications Medication Instructions Recorded Confirmed Type Amiodarone [Cordarone] 200 mg PO DAILY@0800 11/04/16 04/24/22 History Aspirin EC [Ecotrin Low Dose] 81 mg PO DAILY@1200 11/04/16 04/24/22 History Rivaroxaban [Xarelto] 15 mg PO DAILY@0800 11/04/16 04/24/22 History Atorvastatin [Lipitor] 80 mg PO HS@2100 03/01/19 04/24/22 History Cholecalciferol (Vitamin D3) 75 mcg PO DAILY@1700 03/25/22 04/24/22 History [Vitamin D3 (3000 Iu)] Solifenacin Succinate 10 mg PO DAILY@0800 03/25/22 04/24/22 History Tamsulosin HCl [Flomax] 0.4 mg PO DAILY@0800 03/25/22 04/24/22 History lisinopriL [Zestril] 10 mg PO DAILY@0800 03/25/22 04/24/22 History Ciprofloxacin HCl [Cipro] 500 mg PO BID@0800,2100 04/24/22 04/24/22 History Cyanocobalamin [Vitamin B-12] 1,000 mcg PO DAILY@1700 04/24/22 04/24/22 History Ensure Enlive 237 ml PO TID@0800,1200,1700 04/24/22 04/24/22 History HYDROcodone/APAP 5-325MG [[place] 1 tab PO Q6HR PRN 04/24/22 04/24/22 History 5-325] Magnesium Hydroxide [Milk of 7,200 mg PO Q48H PRN 04/24/22 04/24/22 History Magnesia Concentrate] Melatonin 1 mg PO HS@2100 04/24/22 04/24/22 History Na Phos,M-B/Na Phos,Di-Ba [Fleet 133 ml RECTAL DAILY PRN 04/24/22 04/24/22 History Adult] Ondansetron [Zofran] 4 mg PO Q8HR PRN 04/24/22 04/24/22 History Sennosides [Senokot] 17.2 mg PO HS@2100 04/24/22 04/24/22 History bisacodyL [Dulcolax] 10 mg RECTAL DAILY PRN 04/24/22 04/24/22 History polyethylene glycoL 3350 [Miralax] 17 gm PO DAILY@0800 04/24/22 04/24/22 History Allergies Allergy/AdvReac Type Severity Reaction Status Date / Time No Known Allergies Allergy Verified 04/24/22 17:10 Physical Exam Vitals: Vital Signs Temp Pulse Resp BP Pulse Ox 04/29/22 01:45 97.7 F 63 14 126/70 95 04/28/22 19:32 97.7 F 65 14 138/81 96 04/28/22 14:00 98.4 F 62 16 126/72 93 L Intake and Output 04/28/22 04/29/22 04/29/22 22:59 06:59 14:59 Output Total 550 600 Balance -550 -600 Output: Urine 550 600 General appearance: The patient is alert, oriented, appears in no acute di stress. HET: Head is normocephalic and atraumatic. Conjunctiva pink. Sclera anicteric. Neck: Supple without lymphadenopathy. Trachea midline. Heart: S1 S2. Regular rate and rhythm. Lungs: Clear to auscultation. Abdomen: Soft, nontender, nondistended with bowel sounds. No guarding or rigidity. Skin: No rashes. No jaundice. Extremities: Normal skin color and turgor. No pedal edema. Neurological: Slurred speech. Alert and oriented. Results CBC & Chem 7: 04/27/22 09:01 04/29/22 05:56 Labs: Abnormal Lab Results - Last 24 Hours (Table) 04/29/22 Range/Units 05:56 Sodium 130 L (137-145) mmol/L Osmolality 273 L (280-301) mosm/kg Calcium 7.9 L (8.4-10.2) mg/dL CT scan - abdomen: report reviewed (No evidence of free air. Renal cortical cyst. No renal solid mass or obstruction. Arthrosclerotic vascular disease. Bilateral basilar pulmonary infiltrate and atelectasis. Cholelithiasis.) Assessment and Plan (1) Dysphagia Narrative/Plan: 76-year-old male with a history of CVA with a acute/subacute stroke who is complaining of 20 pound weight loss and difficulty with swallowing. Patient has had increased weakness came into the emergency department for further evaluation. States that he has had difficulty with swallowing for approximately 4 weeks duration. Denies any abdominal pain, nausea or vomiting. G astroenterology as well as general surgery was consulted for evaluation including EGD and possible PEG tube placement. Patient is scheduled with general surgery for EGD and PEG tube placement tomorrow 04/30/[address] Dean. May also need to consider modified barium swallow study. GI will be on standby if further needed. Current Visit: Yes Status: Acute Code(s): R13.10 - DYSPHAGIA, UNSPECIFIED SNOMED Code(s): 25561258 (2) Weakness Current Visit: Yes Status: Acute Code(s): R53.1 - WEAKNESS SNOMED Code(s): 65161370 (3) Atrial fibrillation Narrative/Plan: On sanaz [place] on hold Current Visit: No Status: Acute Code(s): I48.91 - UNSPECIFIED ATRIAL FIBRILLATION SNOMED Code(s): 51495275 (4) CVA (cerebral infarction) Narrative/Plan: Neurology following Current Visit: No Status: Acute Code(s): I63.9 - CEREBRAL INFARCTION, UNSPECIFIED SNOMED Code(s): 375606939 Plan: 1. Continue symptomatic and supportive care 2. Patient scheduled for EGD and PEG tube placement with Dr. Dean 04/30/2022 3. Protonix 40 mg daily for GI prophylaxis 4. No plans on endoscopic evaluation as patient certainly scheduled with general surgery Thank you for this consultation, we will be on standby further needed. Dr. Sarah Post I agree with the dictator's note, documented as a scribe by Jami Patel.
[2022-04-29] MEDS: ASPIRIN 81 MG PO SCH (12:29)
--- NOTE | 2022-04-29 12:45 | P.PN ---
Subjective Progress Note Date: 04/29/22 Dictation on progress note Date of service 04/29/2022 Seen and evaluated [id number] by Dr. Henriquez. Patient seen evaluated today. His vital sign indicating temperature 97.7 F oral his pulse rate 63 bpm regular sinus respiratory rate 14 and his blood pressure 126/70 and mean blood pressure 88 he is on 2 L nasal oxygen and is pulse ox 95%. Cardiology cancel the MANISHA unclear reason for not doing the procedure to find out why he is showering with emboli patient hemodynamically stable with normal blood pressure and he is conscious alert. In regard of PEG tube placement still plan for tomorrow. Resume feeding hold if choking and to be feeding in the sitting position with the need person to feed him. He had and the x-rays atelectasis no evidence of pneumonia. Oxygen supplement is normalized was 2 L of oxygen with the underlying history of COPD. On exam: Patient conscious alert oriented 3 able to whisper with the vocal cord abnormality secondary to stroke and he will plan to be seen by Dr. Banks on next Friday otherwise we need to cancel will delay that appointment with Dr. Banks. Neck was supple no JVD no thyromegaly no lymphadenopathy trachea midline. Chest was clear to auscultation and percussion no wheezes no rhonchi's. Heart paroxysmal atrial fibrillation however currently he is in sinus rhythm and the cardiology canceled a MANISHA procedure which was designed to clarify the issue of the showering of emboli in both hemisphere with the progression of his acute CVA. The abdomen was soft positive bowel sounds. Extremities no edema and positive pulses Neurologically: Right upper and lower hemiparesis and incontinent with Luo catheter and bilateral showered with emboli strokes and he was on Xarelto 15 mg. With the recommendation of the neurologist Dr. Wynne with the common procedure of acute placement and the MANISHA he recommended bridging with Lovenox 30 mg every 12 hours which ordered yesterday. Psychiatry seen patient order Remeron 7.5 mg daily at bedtime. Assessment: #1 patient stable general condition the past through the MANISHA. From the medical point of view. #2 going tomorrow as scheduled for PEG tube placement and EGD. #3 bilateral hemispheric stroke with the paroxysmal atrial fibrillation with the failure of Xarelto. #4 hypertension is controlled, patient is currently in normal sinus rhythm. #5 dysphagia associated with stroke/CVA embolic #6 rule out PFO with the showering of the both hemisphere. #7 dysphonia with the impairment of the voice he had an appointment with Dr. Banks on Friday and if there is no enough time will need to reschedule the appointment to different date. Plan continue current treatment #2 will follow the recommendation of the cardiology for the treatment and future anticoagulation as they are consulted on the case. Waiting tomorrow for PEG tube feeding and nutrition for adjustment of feeding With a possibility due to see Dr. Banks on Friday or rescheduling him. Objective - Vital Signs Vital signs: Vital Signs Temp 97.7 F 04/29/22 01:45 Pulse 63 04/29/22 01:45 Resp 14 04/29/22 01:45 BP 126/70 04/29/22 01:45 Pulse Ox 95 04/29/22 01:45 FiO2 Intake & Output 04/28/22 04/29/22 04/29/22 18:59 06:59 18:59 Output Total 1700 600 Balance -1700 -600 Output: Urine 1700 600 Other: Voiding Method Indwelling Catheter - Labs CBC & Chem 7: 04/27/22 09:01 04/29/22 05:56 Labs: Abnormal Lab Results - Last 24 Hours (Table) 04/29/22 Range/Units 05:56 Sodium 130 L (137-145) mmol/L Osmolality 273 L (280-301) mosm/kg Calcium 7.9 L (8.4-10.2) mg/dL
--- NOTE | 2022-04-29 12:47 | P.PN ---
Subjective Progress Note Date: 04/29/22 CHIEF COMPLAINT: Dysphagia HISTORY OF PRESENT ILLNESS: Progressive dysphagia. Poor oral intake. Patient is awake and sitting up at bedtime. Physical therapy is at bedside. Afebrile. MANISHA canceled today cardiology. Albumin 2.7 WBC 7.3 Hgb 12.3+207 sodium is 1:30 potassium is 3.6 creatinine 0.87 PHYSICAL EXAM: VITAL SIGNS: Reviewed. GENERAL: Well-developed in no acute distress. ABDOMEN: Soft. Nondistended. Nontender. NEUROLOGIC: Alert and oriented. Cranial nerves II through XII grossly intact. ASSESSMENT: 1. Dysphagia 2. Severe protein calorie malnutrition 3. History of CVA PLAN: -Patient scheduled for EGD with PEG tube placement tomorrow with Dr. Dean -Keep patient nothing by mouth after midnight -Continue to hold Xarelto -Hold AM dose of lovenox Physician [employer] note has been reviewed by physician. Signing provider agrees with the documented findings, assessment, and plan of care. I have personally seen and examined the patient, reviewed the MEDICAL APPARATUS MODEL MAKER /PAs history, exam and MDM and agree with the assessment and plan as written. Based on total visit time, I have performed more than 50% of the visit. As above: Patient complains of fatigue. Labs noted. We'll proceed with EGD and PEG tube placement tomorrow. Objective - Vital Signs Vital signs: Vital Signs Temp 97.7 F 04/29/22 01:45 Pulse 63 04/29/22 01:45 Resp 14 04/29/22 01:45 BP 126/70 04/29/22 01:45 Pulse Ox 95 04/29/22 01:45 FiO2 Intake & Output 04/28/22 04/29/22 04/29/22 18:59 06:59 18:59 Output Total 1700 600 Balance -1700 -600 Output: Urine 1700 600 Other: Voiding Method Indwelling Catheter - Labs CBC & Chem 7: 04/27/22 09:01 04/29/22 05:56 Labs: Abnormal Lab Results - Last 24 Hours (Table) 04/29/22 Range/Units 05:56 Sodium 130 L (137-145) mmol/L Osmolality 273 L (280-301) mosm/kg Calcium 7.9 L (8.4-10.2) mg/dL
--- NOTE | 2022-04-29 14:28 | P.PN ---
Progress Note - Text Progress Note Date: 04/29/22 Interval History: Patient was seen today for psychiatric follow up today. He was laying in bed r esting today and agreeable to speak with assembly instructions writer. Patients nurse claims that patient has been doing well. Patient denies any complaints at this time. He decribed a long history of depression. He spoke about the medical tests he will be undergoing. He is denying any significant anxiety. He states that he is sleeping fairly, has fair energy. At this time patient denies any suicidal or homical ideations, intent or plan. Patient denies any auditory, visual hallucinations and denies any paranoia or delusions. Patient denies any side effects from the medications and has been compliant with meds. Mental Status Exam: General Appearance: Patient appears to be stated age is alert but somnolent, pleasant, and cooperative. Patient appears to have fair hygiene and grooming wearing hospital gown with improving eye contact and staring Behavior: Patient is calmly lying in bed without any agitated behavior. Speech: Patient's speech is fluent and nonpressured. concrete Mood/Affect: Patient reports their mood is "alright", affect is congruent and constricted. Suicidality/Homicidality: Patient denies having any suicidal or homicidal ideation intent or plan. Perceptions: Patient denies any visual hallucinations and denies any auditory hallucinations Though content/process: There is no evidence of any delusional thought content and thought process is linear and goal-directed. concrete. Memory and concentration: AOX3, grossly intact for the purposes of this session. Judgment and insight: fair IMPRESSIONS: Adjustment disorder with depressed mood PLAN: -At this time patient DOES NOT meet criteria for inpatient psychiatric admission. -Would recommend the following medication changes/additions: continue Remeron to 15 mg qHS for mood/sleep/appetite. increase melatonin to 3 mg qhs for sleep. - follow up as an outpatient -Communicated plan to patient's nurse -Neuro, Cardio, surgery on board -at this time psychiatry will sign off. -Please contact with any questions.
[2022-04-29] MEDS: CYANOCOBALAMIN 500 MCG TAB PO SCH (18:06)
[2022-04-29] MEDS: CHOLECALCIFEROL 25 MCG (1000 IU) TABLET PO SCH (18:06)
[2022-04-29] MEDS: ATORVASTATIN 80 MG TAB PO SCH (22:19)
[2022-04-29] MEDS: MELATONIN 3 MG TABLET PO SCH (22:19)
[2022-04-29] MEDS: SENNOSIDES 8.6 MG TAB PO SCH (22:20)
[2022-04-29] MEDS: MIRTAZAPINE 15 MG TAB PO SCH (22:20)
[2022-04-30] MEDS: ENOXAPARIN 30 MG/0.3 ML SYRINGE SQ SCH ×2 (01:10→17:02)
[2022-04-30] MEDS: TAMSULOSIN 0.4 MG CAP.ER.24H PO SCH (08:29)
[2022-04-30] MEDS: PANTOPRAZOLE 40 MG/10 ML VIAL IVP SCH (08:29)
[2022-04-30] MEDS: AMIODARONE 200 MG TAB PO SCH (08:29)
[2022-04-30] MEDS: TROSPIUM CHLORIDE 20 MG TABLET PO SCH (08:30)
[2022-04-30] MEDS: polyethylene glycoL 3350 17 GM POWD.PACK PO SCH (08:30)
[2022-04-30] MEDS: DEXTROSE 5%-0.9% NACL 1,000 ML IV SCH ×2 (08:30→17:07)
--- NOTE | 2022-04-30 09:50 | P.PN ---
Subjective Progress Note Date: 04/29/22 Patient was seen for a follow-up. States he feels "tired". Denies dizziness or headache. Denies any new neurological symptoms. Patient continues to feel significant weakness of the right leg, feels like "", like a lot of weight on it. Objective - Vital Signs Vital signs: Vital Signs Temp 98.0 F 04/29/22 14:00 Pulse 65 04/29/22 14:00 Resp 15 04/29/22 14:00 BP 136/66 04/29/22 14:00 Pulse Ox 97 04/29/22 14:00 FiO2 Intake & Output 04/28/22 04/29/22 04/29/22 18:59 06:59 18:59 Output Total 1700 600 Balance -1700 -600 Weight 88.451 kg Output: Urine 1700 600 Other: Voiding Method Indwelling Catheter - Exam Patient is alert and awake. Speech and language functions are normal. He speaks with a very low husky voice, which is chronic since his previous CVA. Cranial nerves are normal. Patient has right pronation, no drift. Patient's strength is (right/left) deltoid 4/5, biceps 5-/5, triceps 5-/5, apparel merchandiser 5-/5. Hip flexion right side not checked, left 4+, ankle dorsiflexion 4/5. Sensory touch is equal with no neglect. Cerebellar functions revealed ataxia for [id number] testing on the right. Patient's abdomen is soft, nontender. No guarding. No organomegaly. - Labs CBC & Chem 7: 04/27/22 09:01 04/29/22 05:56 Labs: Abnormal Lab Results - Last 24 Hours (Table) 04/29/22 Range/Units 05:56 Sodium 130 L (137-145) mmol/L Osmolality 273 L (280-301) mosm/kg Calcium 7.9 L (8.4-10.2) mg/dL Assessment and Plan Assessment: * Acute, subacute strokes, multiple involving bilateral hemispheric region, likely cardioembolic. Patient has mild to moderate right hemiparesis. * Dysphagia, possible from CVA, rule out esophageal dysmotility/neoplastic cause. No clinical evidence of Parkinson's disease. No clinical evidence of motor neuron disease/ALS. 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 * Atrial fibrillation, on anticoagulation with Xarelto. * Hypertension * Hyperlipidemia * History of prostate cancer. Plan: * MRI of the brain with and without contrast revealed multiple subcentimeter areas of abnormal signal seen on diffusion imaging compatible with acute ischemia seen scattered throughout the white matter bilaterally. There is a focus of subcentimeter enhancement corresponding to an area of diffusion restriction within the right parietal white matter too small to characterize. May represent an area of subacute ischemia. There is an area of abnormal signal enhancement involving the left frontal parietal calvarium measuring 1.6 cm. Corresponds to possible lucent area by computed tomography scan. [place] stasis or multiple myeloma within the differential diagnosis. Correlate clinically. Internal medicine to address to rule out ?metastatic disease/myeloma. * Appreciate cardiology input. Recommending patient to be on Xarelto 20 mg daily. Currently on Xarelto 15 mg daily. Cardiology does not believe MANISHA is indicated. They just want to increase dose of Xarelto to 20 mg. * Patient to undergo EGD and possible PEG tube placement in the morning. Xar elto has been on hold. Patient started on Lovenox 30 mg twice a day for bridging. * CTA of head and neck from 04/19/2022 shows no evidence of dissection of the cervical internal carotid arteries or vertebral arteries or any evidence of significant stenosis in the carotid bifurcations. No evidence of intracranial high-grade stenosis or intracranial aneurysm. * 2-D echo from 03/26/2022 shows mild LVH with EF of 55%. Left atrial size is mildly increase in diameter. * Hemoglobin A1c 5.0, B12 1603, folic acid 5.0, fasting lipid panel cholesterol 92, LDL 43, HDL 38 and triglycerides 45, acetylcholine receptor antibodies and TSH pending. We will start folate replacement. * Continue Xarelto for stroke prevention related to atrial fibrillation, and aspirin 81 mg daily. * PT OT.
[2022-04-30 11:01] LABS: African American GFR (CKD) 98.3 (60.0-200.0); Anion Gap 7.5 mmol/L (10.00-18.00); BUN/Creat Ratio 12.31 Ratio (12.00-20.00); Blood Urea Nitrogen 10.4 mg/dL (9.0-27.0); Calcium 8.1 mg/dL (8.7-10.3); Carbon Dioxide 21.9 mmol/L (20.0-27.5); Non-African American GFR(CKD) 84.8 (60.0-200.0); Potassium 3.7 mmol/L (3.5-5.5)
--- NOTE | 2022-04-30 11:11 | P.PN ---
Subjective This is a 76-year-old male with a past medical history significant for coronary artery disease with previous angioplasty of LAD, nonsustained ventricular tachycardia, paroxysmal atrial fibrillation, hypertension, and hyperlipidemia. Patient follows in the office with Dr. Post. Patient had recent right hip fracture approximately 1 month ago and anticoagulation was briefly held. He is anticoagulated on an outpatient basis with Xarelto with mention of 15mg daily dosing per chart. Patient presented 04/24 with worsening weakness and difficulty eating. He has been at the rehab center however has had difficulty with eating solid foods and concern of aspiration and has lost approximately 20 pounds. He was seen by neurologist with concern for stroke and had a brain MRI 04/26 with multiple subcentimeter areas compatible with acute ischemia bilaterally. Neurology recommended cardiology evaluation for cardiac source of emboli. 2-D echocardiogram in 03/26/2022 revealed EF 55%, mild mitral regurgitation, mild LVH. 04/30 Patient seen and examined at bedside, he is confused. Lethargic. Oriented x 0. Unable to answer questions appropriately or follow commands. Has no complaints. Patient denies any chest pain or pressure. No shortness breath. Telemetry reviewed patient remains in sinus rhythm. Possible plan for PEG tube and Xarelto is being held PHYSICAL EXAM: VITAL SIGNS: Reviewed. GENERAL: Well-developed in no acute distress. HEENT: Head is normocephalic. Neck supple. No JVD LUNGS: Respirations even and unlabored. Lungs diminished in bases to auscultation bilaterally. HEART: Regular rate and rhythm. S1 and S2 heard. + systolic and diastolic murmur. ABDOMEN: Soft. Nondistended. Nontender. EXTREMITIES: No clubbing or cyanosis. Peripheral pulses intact. No lower extremity edema NEUROLOGIC: Lethargic, A/O x 0. ASSESSMENT: Bilateral CVA concerning for cardio embolic etiology Previous hip fracture Paroxysmal atrial fibrillation, currently sinus Hypertension Hyperlipidemia Coronary artery disease with previous stenting of the LAD History of nonsustained ventricular tachycardia Valvular heart disease including moderate to severe aortic regurgitation Dysphagia, possible plan for PEG tube placement with surgery PLAN: Patient has been taking Xarelto with brief hold after his hip surgery. Multifocal stroke with most likely etiology atrial fibrillation and unclear if failure of Xarelto, had been taking 15mg dosing. And this admission Xarelto increased to 20mg daily. Do not recommend MANISHA at this time Neurology recommendations appreciated Recommend restarting Xarelto as soon as possible after PEG placement. No further changes at this time from a cardiology perspective Nurse practitioner note has been reviewed by physician. Signing provider agrees with the documented findings, assessment, and plan of care. Objective - Vital Signs Vital signs: Vital Signs Temp 98.3 F 04/30/22 07:58 Pulse 68 04/30/22 07:58 Resp 17 04/30/22 07:58 BP 150/73 04/30/22 07:58 Pulse Ox 96 04/30/22 07:58 FiO2 Intake & Output 04/29/22 04/30/22 04/30/22 18:59 06:59 18:59 Output Total 850 Balance -850 Weight 88.451 kg Output: Urine 850 Other: Voiding Method Indwelling Catheter Urinal # Voids 4 # Bowel Movements 1 - Labs CBC & Chem 7: 04/27/22 09:01 04/30/22 06:46
[2022-04-30] MEDS: ASPIRIN 81 MG PO SCH (12:27)
--- NOTE | 2022-04-30 13:39 | P.PN ---
Subjective Progress Note Date: 04/30/22 Principal diagnosis: Dysphagia She was seen and examined today as a follow-up for dysphagia. The patient is nothing by mouth currently and scheduled to undergo EGD with possible PEG tube placement today with general surgeon Dr. Dean. Patient is without any other acute symptoms. Denies any abdominal pain, nausea or vomiting. He's been afebrile. Speech therapy at the bedside and was going to reevaluate patient. They will recheck out to general surgery. Objective - Vital Signs Vital signs: Vital Signs Temp 98.3 F 04/30/22 07:58 Pulse 68 04/30/22 07:58 Resp 17 04/30/22 07:58 BP 150/73 04/30/22 07:58 Pulse Ox 96 04/30/22 07:58 FiO2 Intake & Output 04/29/22 04/30/22 04/30/22 18:59 06:59 18:59 Output Total 850 Balance -850 Weight 88.451 kg Output: Urine 850 Other: Voiding Method Indwelling Catheter Urinal # Voids 4 # Bowel Movements 1 - Exam General appearance: The patient is alert, oriented, appears in no acute distress. HET: Head is normocephalic and atraumatic. Conjunctiva pink. Sclera anicteric. Neck: Supple without lymphadenopathy. Abdomen: Soft, nontender, nondistended with bowel sounds. No guarding or rigidity. Extremities: Normal skin color and turgor. No pedal edema Skin: No rashes, no jaundice Neurological: Alert and oriented. Dysarthric. - Labs CBC & Chem 7: 04/27/22 09:01 04/30/22 06:46 Assessment and Plan (1) Dysphagia Narrative/Plan: 76-year-old male with a history of CVA with a acute/subacute stroke who is complaining of 20 pound weight loss and difficulty with swallowing. Patient has had increased weakness came into the emergency department for further evaluation. States that he has had difficulty with swallowing for approximately 4 weeks duration. Denies any abdominal pain, nausea or vomiting. Gastroenterology as well as general surgery was consulted for evaluation including EGD and possible PEG tube placement. Patient is scheduled with general surgery for EGD and PEG tube placement tomorrow 04/30/[address] Dean. May also need to consider modified barium swallow study. GI will be on standby if further needed. Current Visit: Yes Status: Acute Code(s): R13.10 - DYSPHAGIA, UNSPECIFIED SNOMED Code(s): 33515447 (2) Weakness Current Visit: Yes Status: Acute Code(s): R53.1 - WEAKNESS SNOMED Code(s): 19503264 (3) Atrial fibrillation Narrative/Plan: On Xareltodongenlty on hold Current Visit: No Status: Acute Code(s): I48.91 - UNSPECIFIED ATRIAL FIBRILLATION SNOMED Code(s): 25540996 (4) CVA (cerebral infarction) Narrative/Plan: Neurology following Current Visit: No Status: Acute Code(s): I63.9 - CEREBRAL INFARCTION, UNSPECIFIED SNOMED Code(s): 945717162 Plan: 1. Continue symptomatic and supportive care 2. Patient scheduled for EGD and PEG tube placement with Dr. Dean 04/30/2022 3. Protonix 40 mg daily for GI prophylaxis 4. No plans on endoscopic evaluation as patient scheduled with general surgery 5. Consider modified barium study if warranted Thank you for this consultation, we will be on standby further needed. Dr. Sarah Post I agree with the dictator's note, documented as a scribe by Jami Patel.
[2022-04-30] MEDS ORDERED: LIDOCAINE 2% INJ 20 MG/ML (2 ML VIAL) ONE (14:17)
[2022-04-30] MEDS ORDERED: SODIUM CHLORIDE 0.9% 100 ML BAG ONE (14:17)
[2022-04-30] MEDS ORDERED: PROPOFOL 10 MG/ML 20 ML VIAL IV ONE (14:17)
[2022-04-30] MEDS ORDERED: ceFAZolin 1,000 MG VIAL ONE (14:17)
[2022-04-30] MEDS ORDERED: MIDAZOLAM 2 MG/2 ML VIAL ONE (14:17)
[2022-04-30] MEDS ORDERED: DEXTROSE 5%-0.45% NACL 1,000 ML IV ONE (14:26)
--- NOTE | 2022-04-30 15:54 | P.PN ---
Subjective Progress Note Date: 04/30/22 Dictation progress note Date of service 04/30/2022. Dictation by Dr. Talavera Patient seen today [id number] discussed with his in detail and patient was waiting for PEG tube placement in the afternoon by Dr. Dean. Patient seen by gastroenterology as well Dr. Charles. And her nurse practitioner Patient seen by process development associate nurse practitioner and the the recommended against MANISHA patient did not have it. They recommended to be started ont Xarelto 20 mg after he had PEG tube placement. Currently patient on bridging with Lovenox 30 mg every 12 hours. If the PEG tube feeding started and patient have no complication, hopefully we can transfer him to shelter where he continue rehab. His stated that they requested to go to [facility] on the [place] and I did discuss with the and the patient that he will be under care of other physician due to effect I don't have a privilege in [facility]. On exam: Vital signs stable. Head was normocephalic and atraumatic pupil was equal reactive, oropharynx natural teeth His voice is impaired and apparently from his first stroke as discussed with his she already change that appointment to read the following week with Dr. Banks the ENT. To evaluate the vocal cord and his voice and he has been whispering and impaired the voice. The neck was supple no JVD no thyromegaly no lymphadenopathy trachea midline. 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 On the left side is norm alized with no weakness, Neurologically: Bilateral hemispheric CVA with showering with emboli with the underlying atrial fib paroxysmal currently is normal sinus rhythm Psychiatry depressed mood seen by the psychiatrist and adjusted his medication for Remeron 15 mg at bedtime and increase the melatonin to 3 mg by the psychiatrist. 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 Banks from the shelter [facility] [place] #4 hypertension was controlled #5 atrial fibrillation paroxysmal currently in normal sinus rhythm. Plan: #1 will start feeding through the PEG tube once patient cleared for feeding by surgical service after placement of the PEG tube in association with hydration as well through the tube. #2 we'll be planning for discharge tomorrow to [facility] on the [place] when is cleared by surgery. #3 patient will be followed by a different physician depend on the shelter facility as I don't go to [facility] on the [place] #4 future follow-up with Dr. Banks ENT for his vocal cord and evaluation and treatment. #5 follow-up with Orlando Barrios as outpatient and he had appointment in May in the office to follow him up. #6. Medication between the dietitian in the hospital and the shelter for the calorie and the amount as well as the water supplementation was also requested #7 discussion with his at bedside in detail thank you Objective - Vital Signs Vital signs: Vital Signs Temp 98.3 F 04/30/22 07:58 Pulse 68 04/30/22 07:58 Resp 17 04/30/22 07:58 BP 150/73 04/30/22 07:58 Pulse Ox 96 04/30/22 07:58 FiO2 Intake & Output 04/29/22 04/30/22 04/30/22 18:59 06:59 18:59 Output Total 850 Balance -850 Weight 88.451 kg 88.451 kg Output: Urine 850 Other: Voiding Method Urinal # Voids 4 # Bowel Movements 1 - Labs CBC & Chem 7: 04/27/22 09:01 04/30/22 06:46 Labs: Abnormal Lab Results - Last 24 Hours (Table) 04/30/22 Range/Units 06:46 Sodium 134 L (135-145) mmol/L Anion Gap 7.50 L (10.00-18.00) mmol/L Calcium 8.1 L (8.7-10.3) mg/dL
[2022-04-30] MEDS: CYANOCOBALAMIN 500 MCG TAB PO SCH (17:01)
[2022-04-30] MEDS: CHOLECALCIFEROL 25 MCG (1000 IU) TABLET PO SCH (17:01)
--- NOTE | 2022-04-30 17:49 | P.PCN ---
Date of Procedure: 04/30/22 Procedure(s) Performed: PREOPERATIVE DIAGNOSIS: Malnutrition, dysphagia POSTOPERATIVE DIAGNOSIS: Same PROCEDURE: EGD with PEG tube placement SURGEON: Dianne EBL: Minimal ANESTHESIA: Sedation COMPLICATIONS: None OPERATIVE PROCEDURE: The patient was placed in the supine position on the endoscopy table. The patient was sedated per anesthesia that time. The Olympus gastroscope was inserted into the oropharynx and passed under direct visualization to the region of the duodenum. No obstruction was seen. The pylorus was widely patent. The stomach was carefully inspected. Minimal inflammation was seen. The scope was actually withdrawn back into the esophagus. No evidence of stricture formation or findings to explain the patient's dysphagia noted. Scope was then advanced back into the stomach. The stomach was fully insufflated with air. The abdominal wall was inspected. The light was seen shining through the abdominal wall in the left upper quadrant. This site was chosen for PEG tube placement. The area was prepped in the usual sterile fashion. This area was then localized with lidocaine. No air was evident when aspirating while advancing the localizing needle into the stomach until the stomach was reached. A small vertical incision was made using the scalpel. The Seldinger needle was advanced into the lumen of the stomach the wire was advanced. The wire was grasped with an endoscopic snare. The wire was pulled through the oropharynx. The catheter was then threaded over the guidewire and the guidewire and catheter were pulled anteriorly until the hub of the PEG tube catheter was seated against the anterior wall the stomach. The circular bolster was applied and tightened down. The endoscope was then readvanced into the stomach. There was no evidence of any bleeding and there was appropriate tightness on the bolster. The catheter was cut appropriately. The dual port feeding adapter was applied. DISPOSITION: Stable to recovery room
[2022-04-30] MEDS: MELATONIN 3 MG TABLET PO SCH (20:43)
[2022-04-30] MEDS: HYDROcodone/APAP 5-325MG 1 EACH TAB PO PRN (20:43)
[2022-04-30] MEDS: MIRTAZAPINE 15 MG TAB PO SCH (20:43)
[2022-04-30] MEDS: ATORVASTATIN 80 MG TAB PO SCH (20:43)
[2022-04-30] MEDS: SENNOSIDES 8.6 MG TAB PO SCH (20:43)
[2022-05-01] MEDS: ENOXAPARIN 30 MG/0.3 ML SYRINGE SQ SCH (05:11)
[2022-05-01] MEDS ORDERED: RIVAROXABAN 20 MG TAB PO SCH (08:44)
[2022-05-01] MEDS: PANTOPRAZOLE 40 MG/10 ML VIAL IVP SCH (09:58)
[2022-05-01] MEDS: polyethylene glycoL 3350 17 GM POWD.PACK PO SCH (09:58)
[2022-05-01] MEDS: TAMSULOSIN 0.4 MG CAP.ER.24H PO SCH (09:59)
[2022-05-01] MEDS: AMIODARONE 200 MG TAB PO SCH (09:59)
[2022-05-01] MEDS: TROSPIUM CHLORIDE 20 MG TABLET PO SCH (09:59)
--- NOTE | 2022-05-01 10:04 | P.PN ---
Subjective Progress Note Date: 05/01/22 Principal diagnosis: Dysphagia She was seen and examined today as a follow-up for dysphagia. Today patient underwent EGD and PEG tube placement. Patient's tube feedings have been started and he is tolerating well. He is also taking and water orally without any difficulty. Objective - Vital Signs Vital signs: Vital Signs Temp 97.4 F L 05/01/22 08:00 Pulse 63 05/01/22 08:00 Resp 12 05/01/22 08:00 BP 125/72 05/01/22 08:00 Pulse Ox 95 05/01/22 08:00 FiO2 Intake & Output 04/30/22 05/01/22 05/01/22 18:59 06:59 18:59 Weight 88.451 kg 88.5 kg Other: Voiding Method Diaper Incontinent External Catheter - Exam General appearance: The patient is alert, oriented, appears in no acute distress. HET: Head is normocephalic and atraumatic. Conjunctiva pink. Sclera anicteric. Neck: Supple without lymphadenopathy. Abdomen: Soft, nontender, nondistended with PEG tube in place. No guarding or rigidity. Extremities: Normal skin color and turgor. No pedal edema Skin: No rashes, no jaundice Neurological: Alert and oriented. Dysarthric. - Labs CBC & Chem 7: 04/27/22 09:01 04/30/22 06:46 Labs: Abnormal Lab Results - Last 24 Hours (Table) 04/30/22 Range/Units 06:46 Sodium 134 L (135-145) mmol/L Anion Gap 7.50 L (10.00-18.00) mmol/L Calcium 8.1 L (8.7-10.3) mg/dL Assessment and Plan (1) Dysphagia Narrative/Plan: 76-year-old male with a history of CVA with a acute/subacute stroke who is complaining of 20 pound weight loss and difficulty with swallowing. Patient has had increased weakness came into the emergency department for further evaluation. States that he has had difficulty with swallowing for approximately 4 weeks duration. Denies any abdominal pain, nausea or vomiting. Gastroenterology as well as general surgery was consulted for evaluation including EGD and possible PEG tube placement. Patient is scheduled with general surgery for EGD and PEG tube placement tomorrow 04/30/[address] Dean. May also need to consider modified barium swallow study. GI will be on standby if further needed. Patient is status post EGD and PEG tube placement. EGD with no significant findings or strictures noted. Continue with recommendations from general surgery on tube feedings and speech therapy. Current Visit: Yes Status: Acute Code(s): R13.10 - DYSPHAGIA, UNSPECIFIED SNOMED Code(s): 71274544 (2) Weakness Current Visit: Yes Status: Acute Code(s): R53.1 - WEAKNESS SNOMED Code(s): 33461818 (3) Atrial fibrillation Narrative/Plan: On Xarelto, currenlty on hold Current Visit: No Status: Acute Code(s): I48.91 - UNSPECIFIED ATRIAL FIBRILLATION SNOMED Code(s): 75168236 (4) CVA (cerebral infarction) Narrative/Plan: Neurology following Current Visit: No Status: Acute Code(s): I63.9 - CEREBRAL INFARCTION, UNSPECIFIED SNOMED Code(s): 029021343 Plan: 1. Continue symptomatic and supportive care 2. Patient is status post EGD and PEG tube placement, tolerating well 3. Protonix 40 mg daily for GI prophylaxis 4. Continue with recommendations from general surgery in speech therapy Thank you for this consultation, we will sign off at this time Dr. Sarah Post I agree with the dictator's note, documented as a scribe by Jami Patel.
[2022-05-01] MEDS: LACTATED RINGERS 1,000 ML IV SCH (10:20)
--- NOTE | 2022-05-01 12:17 | P.PN ---
Subjective Progress Note Date: 05/01/22 (Status post PEG tube placement) Progress note Date of service 05/01/[address] Iniguez Procedure: PEG tube placement by Dr. Parham on 04/30/2022. Patient not cleared yet for discharge with the stabilization of the feeding and hydration. Patient also had a wound of the heel needs to be evaluated by vascular surgeon Dr. Gerson Qiu consulted today for evaluation and treatment and questionable debridement. Patient seen and evaluated [id number], discussed with his as well. Vital sign: Temperature 97.4 FL oral pulse rate 63 per minute regular sinus respiratory rate 14/m nonlabored, blood pressure 125/72, patient had 2 L nasal cannula and pulse ox 95% with a history of COPD and atelectasis. Patient is conscious alert and he had in protective which examined today and he had previous dressing from [facility] and that he'll needs more of vascular surgeon and wound evaluation and consulted Dr. Qiu vascular surgeon. 4 evaluation. Patient seen by Dr. Dean today and not yet to be discharged. The head was normocephalic and atraumatic pupil was equal reactive and he is abl e to communicate with the dysphonic speech with the future plan for evaluation as outpatient by Dr. Banks and he has appointment next week as outpatient. Neck was supple no JVD no thyromegaly no lymphadenopathy trachea midline. Chest is clear to auscultation and percussion with a history of ex-smoker in the past and mild COPD mild hypoxemia. Heart: Regular sinus rhythm with a history of paroxysmal atrial fibrillation seen by Dr. SOY Drew yesterday on the ground and advised was enrolled to 20 mg once daily and patient started today on the medication. Abdomen is soft positive bowel sound and PEG tube placed lost night by Dr. Dean. And the feeding tube started today only and monitored for the function and of the feeding. Extremities: No edema and positive pulses and he had he'll wound with the being supine position he has a protective garment with the underlying like wound around burn and consultation with Dr. Gerson Qiu requested. Neurologically: He had right upper and lower hemiparesis as well as he had bilateral embolic manifestation with acute CVA with inability to walk. Physical therapy was consulted and occupational therapy was consulted. Psychiatry: Adjustment disorder with depression and medication continued. Assessment: #1 status post PEG tube placement for dysphagia with the bilateral showering with the emboli cerebrum affected vocal cords as well as speech as well as swallowing and currently had the PEG tube. #2 weight-loss 20 pound in a short time due to inability to eat with the choking. Due to dysphagia. #3 seen by gastroenterology, cardiology, Dr. Parham with placement of PEG tube and EGD. #3 history of coronary artery disease and stent and LAD as best as described by Dr. SOY Drew in his note. #4 history of hypertension with a stable ejection fraction and mitral regurg. #5 history of CVA in the past 5-6 years ago. And this is recurrence. #6 hyperlipidemia. Plan: #1 we'll be planning for discharge when cleared by the surgeon and dietitian af ter the trial of feeding. #[address] Qiu for evaluating the heel wound and the treatment. #3 to follow-up with Dr. Banks as outpatient next week. #4 patient plan to go to [facility] on the [place] where he will be followed by different physician because I don't have a privilege and this facility to follow the patient. #5 continue nasal O2 2 L/m. #6Xarelto started today 20 mg and Lovenox has been discontinued prior to the surgery. As recommended by cardiology. #7 follow in the future with cardiology, [facility], Dr. Qiu vascular surgeon, #8 we'll follow the patient when he, [facility] 9#Continue the site medication. Recommendation of the psychiatry. #10 follow-up with Dr. Orlando Parada neurologist with the patient and appointment in May through the penitentiary facility. Objective - Vital Signs Vital signs: Vital Signs Temp 97.4 F L 05/01/22 08:00 Pulse 63 05/01/22 08:00 Resp 14 05/01/22 08:20 BP 125/72 05/01/22 08:00 Pulse Ox 95 05/01/22 08:00 FiO2 Intake & Output 04/30/22 05/01/22 05/01/22 18:59 06:59 18:59 Weight 88.451 kg 88.5 kg 88.5 kg Other: Voiding Method Diaper Diaper Incontinent Incontinent External Catheter - Labs CBC & Chem 7: 04/27/22 09:01 04/30/22 06:46
--- NOTE | 2022-05-01 12:55 | P.PN ---
Subjective Progress Note Date: 05/01/22 CHIEF COMPLAINT: Dysphagia HISTORY OF PRESENT ILLNESS: Patient is status post PEG tube placement. Tube f eeds have been started this morning. Patient denies any abdominal pain. Denies any nausea or vomiting. Afebrile. Sodium 134 potassium 3.7 creatinine 0.8 PHYSICAL EXAM: VITAL SIGNS: Reviewed. GENERAL: Well-developed in no acute distress. ABDOMEN: Soft. Nondistended. Nontender. PEG tube site with dried blood noted otherwise clean dry and intact NEUROLOGIC: Alert and oriented. Cranial nerves II through XII grossly intact. ASSESSMENT: 1. Dysphagia 2. Severe protein calorie malnutrition 3. History of CVA PLAN: -Continue to titrate tube feedings -Okay to resume Xarelto this evening -Continue supportive care Physician Plumbing Service Technician note has been reviewed by physician. Signing provider agrees with the documented findings, assessment, and plan of care. Patient doing well today. Minimal pain. Bolster loosened slightly. Gradually advance tube feeds as tolerated. Objective - Vital Signs Vital signs: Vital Signs Temp 97.4 F L 05/01/22 08:00 Pulse 63 05/01/22 08:00 Resp 14 05/01/22 08:20 BP 125/72 05/01/22 08:00 Pulse Ox 95 05/01/22 08:00 FiO2 Intake & Output 04/30/22 05/01/22 05/01/22 18:59 06:59 18:59 Weight 88.451 kg 88.5 kg 88.5 kg Other: Voiding Method Diaper Diaper Incontinent Incontinent External Catheter - Labs CBC & Chem 7: 04/27/22 09:01 04/30/22 06:46
[2022-05-01] MEDS: ASPIRIN 81 MG PO SCH (15:35)
[2022-05-01] MEDS: DEXTROSE 5%-0.9% NACL 1,000 ML IV SCH ×2 (15:46→18:24)
[2022-05-01] MEDS: CYANOCOBALAMIN 500 MCG TAB PO SCH (18:23)
[2022-05-01] MEDS: RIVAROXABAN 20 MG TAB PO SCH (18:23)
[2022-05-01] MEDS: CHOLECALCIFEROL 25 MCG (1000 IU) TABLET PO SCH (18:23)
--- NOTE | 2022-05-01 19:22 | P.GSCN ---
History of Present Illness History of present illness: 76-year-old gentleman patient has been admitted with multiple medical problems I was consulted. Patient has a right foot heel pressure ulcer and also on the right foot lateral aspect there is scab formation noted patient will be scheduled for debridement tomorrow. Patient also has a history of A. fib and also has a history of dysphagia sleep apnea Patient seen in his room neck is supple chest has crackles bilateral Abdomen nontender Vascular femorals are 1+ bilateral patient has a infected right heel wound and there is scab formation the lateral aspect of the right foot plan is concern for wound debridement we will arrange for debridement tomorrow on the bedside follow with you Past Medical History Past Medical History: Atrial Fibrillation, Cancer, CVA/TIA, Hyperlipidemia, Hypertension, Sleep Apnea/CPAP/BIPAP Additional Past Medical History / Comment(s): prostate cancer- tx with radiation 2019 , 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 History of atrial fibrillation on Xarelto History of Any Multi-Drug Resistant Organisms: None Reported Past Surgical History: Heart Catheterization With Stent, Hernia Repair Additional Past Surgical History / Comment(s): one cardiac stent, irene cataracts, Past Anesthesia/Blood Transfusion Reactions: No Reported Reaction Additional Past Anesthesia/Blood Transfusion Reaction / Comm: PT NEVER HAS HAD A BLOOD TRANSFUSION. Date of Last Stent Placement:: 05/12/14 Smoking Status: Former smoker - Past Family History Mother Family Medical History: Coronary Artery Disease (CAD) Additional Family Medical History / Comment(s): MOTHER HAD CABG. SHE AT AGE 91 YRS. Medications and Allergies Home Medications Medication Instructions Recorded Confirmed Type Amiodarone [Cordarone] 200 mg PO DAILY@0800 11/04/16 04/24/22 History Aspirin EC [Ecotrin Low Dose] 81 mg PO DAILY@1200 11/04/16 04/24/22 History Rivaroxaban [Xarelto] 15 mg PO DAILY@0800 11/04/16 04/24/22 History Atorvastatin [Lipitor] 80 mg PO HS@2100 03/01/19 04/24/22 History Cholecalciferol (Vitamin D3) 75 mcg PO DAILY@1700 03/25/22 04/24/22 History [Vitamin D3 (3000 Iu)] Solifenacin Succinate 10 mg PO DAILY@0800 03/25/22 04/24/22 History Tamsulosin HCl [Flomax] 0.4 mg PO DAILY@0800 03/25/22 04/24/22 History lisinopriL [Zestril] 10 mg PO DAILY@0800 03/25/22 04/24/22 History Ciprofloxacin HCl [Cipro] 500 mg PO BID@0800,2100 04/24/22 04/24/22 History Cyanocobalamin [Vitamin B-12] 1,000 mcg PO DAILY@1700 04/24/22 04/24/22 History Ensure Enlive 237 ml PO TID@0800,1200,1700 04/24/22 04/24/22 History HYDROcodone/APAP 5-325MG [[place] 1 tab PO Q6HR PRN 04/24/22 04/24/22 History 5-325] Magnesium Hydroxide [Milk of 7,200 mg PO Q48H PRN 04/24/22 04/24/22 History Magnesia Concentrate] Melatonin 1 mg PO HS@2100 04/24/22 04/24/22 History Na Phos,M-B/Na Phos,Di-Ba [Fleet 133 ml RECTAL DAILY PRN 04/24/22 04/24/22 History Adult] Ondansetron [Zofran] 4 mg PO Q8HR PRN 04/24/22 04/24/22 History Sennosides [Senokot] 17.2 mg PO HS@2100 04/24/22 04/24/22 History bisacodyL [Dulcolax] 10 mg RECTAL DAILY PRN 04/24/22 04/24/22 History polyethylene glycoL 3350 [Miralax] 17 gm PO DAILY@0800 04/24/22 04/24/22 History Allergies Allergy/AdvReac Type Severity Reaction Status Date / Time No Known Allergies Allergy Verified 04/24/22 17:10 Surgical - Exam Vital Signs Temp Pulse Resp BP Pulse Ox 98.2 F 64 16 138/96 95 04/24/22 15:57 04/24/22 15:57 04/24/22 15:57 04/24/22 15:57 04/24/22 15:57 Results - Labs 04/27/22 09:01 04/30/22 06:46
[2022-05-01] MEDS: MELATONIN 3 MG TABLET PO SCH (20:19)
[2022-05-01] MEDS: MIRTAZAPINE 15 MG TAB PO SCH (20:19)
[2022-05-01] MEDS: SENNOSIDES 8.6 MG TAB PO SCH (20:19)
[2022-05-01] MEDS: ATORVASTATIN 80 MG TAB PO SCH (20:19)
[2022-05-01] MEDS: HYDROcodone/APAP 5-325MG 1 EACH TAB PO PRN (21:13)
[2022-05-02] MEDS: LACTATED RINGERS 1,000 ML IV SCH (02:09)
[2022-05-02] MEDS: HYDROcodone/APAP 5-325MG 1 EACH TAB PO PRN ×4 (02:54→21:25)
[2022-05-02] MEDS ORDERED: LIDOCAINE 1% INJ 10MG/ML (30 ML VIAL-PF) SQ ONE (09:00)
[2022-05-02] MEDS: polyethylene glycoL 3350 17 GM POWD.PACK PO SCH (09:47)
[2022-05-02] MEDS: TAMSULOSIN 0.4 MG CAP.ER.24H PO SCH (09:47)
[2022-05-02] MEDS: TROSPIUM CHLORIDE 20 MG TABLET PO SCH (09:47)
[2022-05-02] MEDS: AMIODARONE 200 MG TAB PO SCH (09:47)
[2022-05-02] MEDS: PANTOPRAZOLE 40 MG/10 ML VIAL IVP SCH (10:22)
--- NOTE | 2022-05-02 10:50 | CA ---
Transthoracic Echo Report Name: Sang Braga Age: 76 Gender: M : 1945 Exam Date: 05/02/2022 07:42 Exam Location: [facility] Ht (in): 75 Wt (lb): 206 Ordering Physician: Claudia Barnes Attending/Referring Phys: Furnace Stock Inspector Maddie Brantley RDCS Procedure CPT: Indications: evaluate for thrombus Cardiac Hx: limited study Technical Quality: Good Contrast 1: Total Dose (mL): Contrast 2: Total Dose (mL): MEASUREMENTS (Male / Female) Normal Values DOPPLER AV Peak Velocity 135.9 cm/s AV Peak Gradient 7.4 mmHg AI Peak Velocity 336.7 cm/s AI Peak Gradient 45.3 mmHg AI Pressure Half Time 1061.9 ms FINDINGS Left Ventricle Left ventricular ejection fraction is estimated at 55-60 %. No thrombus noted good EF Right Ventricle Right Atrium Left Atrium Mitral Valve Mitral valve thickened. Mild mitral regurgitation. Aortic Valve Trileaflet aortic valve. Mild aortic regurgitation. Tricuspid Valve Mild tricuspid regurgitation. Pulmonic Valve Pericardium Normal pericardium. No pericardial effusion. Aorta CONCLUSIONS Grossly the left ventricular size and systolic function is normal there is mild aortic regurgitation no evidence of any filling defect to indicate thrombus Previewed by: Dr. Kate Drew MD (Electronically Signed) Final Date: 02 May 2022 10:50
--- NOTE | 2022-05-02 11:28 | P.PN ---
Subjective Progress Note Date: 05/02/22 CHIEF COMPLAINT: Dysphagia HISTORY OF PRESENT ILLNESS: Patient is status post PEG tube placement. Patient is tolerating tube feeds. No residuals reported. Patient denies any abdominal pain. He is having flatus. Denies any nausea or vomiting. Afebrile. Patient scheduled for debridement of right heel wound with Dr. Adan. Thoto resumed by cardiology. PHYSICAL EXAM: VITAL SIGNS: Reviewed. GENERAL: Well-developed in no acute distress. ABDOMEN: Soft. Nondistended. Nontender. PEG tube site clean dry and intact NEUROLOGIC: Alert and oriented. Cranial nerves II through XII grossly intact. ASSESSMENT: 1. Dysphagia 2. Severe protein calorie malnutrition 3. History of CVA PLAN: -Continue to titrate tube feedings -Continue supportive care Physician Metal Tank Erector note has been reviewed by physician. Signing provider agrees with the documented findings, assessment, and plan of care. I have personally seen and examined the patient, reviewed the HOSPICE SUPERINTENDENT /PAs history, exam and MDM and agree with the assessment and plan as written. Based on total visit time, I have performed more than 50% of the visit. As above: Patient doing well. Tolerating tube feeds at 50 mL per hour. Bolster loosened slightly. Objective - Vital Signs Vital signs: Vital Signs Temp 98 F 05/02/22 08:00 Pulse 66 05/02/22 08:00 Resp 17 05/02/22 08:00 BP 169/81 05/02/22 08:00 Pulse Ox 97 05/02/22 08:00 FiO2 Intake & Output 05/01/22 05/02/22 05/02/22 18:59 06:59 18:59 Intake Total 600 Output Total 950 Balance -350 Weight 88.5 kg 93.5 kg Intake: Oral 600 Output: Urine 950 Other: Voiding Method Diaper External Catheter Indwelling Catheter Incontinent - Labs CBC & Chem 7: 04/27/22 09:01 04/30/22 06:46
[2022-05-02] MEDS ORDERED: ENALAPRILAT 1.25 MG/ML 1 ML VIAL IVP PRN (13:02)
[2022-05-02] MEDS: ASPIRIN 81 MG PO SCH (13:08)
--- NOTE | 2022-05-02 13:24 | P.PN ---
Subjective Progress Note Date: 05/02/22 Progress note Date of service 05/02/[address] Henriquez. Vital sign: Temperature 90.8 F oral. Pulse rate 66 bpm regular sinus respiratory rate 17/m. Blood pressure 169/81 with a mean blood pressure 110. Oxygen saturation 97% on 2 L nasal cannula. Patient currently on PEG tube feeding proceeding well no abdominal pain, no residual, no nausea or vomiting. Volume expansion will be discontinuing the IV fluid D5 0.9 Patient on lactated Ringer 20 mL/h to continue. Hypertension secondary to the volume and will be starting Vasotec 1.25 mg every 6 hours when necessary IV for blood pressure above 140 systolic. On exam: Patient is conscious alert oriented his at bedside, we had agreed discuss ion and also given her the reports of the x-ray the MRI of the brain and discussed with her the finding in detail as well as CAT scan of the abdomen and discussed also the finding in detail as well as giving her a copy of the reports. Head was normocephalic and atraumatic pupil was equal reactive oropharynx natural teeth and still has dysphonia and impaired speech. Neck was supple no JVD no thyromegaly no lymphadenopathy trachea midline. Chest is clear to auscultation and percussion no wheezes no rhonchi's. The heart regular sinus rhythm reviewed the echo which ordered by Dr. SOY Drew sebd teacher with preserved ejection fraction. Abdomen: Positive bowel sounds, PICU intact, no tenderness. Extremities no edema positive pulses, he had healed burn with excoriation need further debridement and Dr. Gerson Qiu the vascular surgeon will proceed with that tomorrow. Psychiatry: Stable with current medication for mood stabilization with Remeron 15 mg at at bedtime Neurological evaluation patient had weakness in his right sided upper arm and lower extremities with the underlying acute CVA with the showering of the brain was emboli discussed with me patient MRI yesterday on the phone with the attention to 1.6 cm enhancement in the left frontoparietal unclear etiology I did discuss it with his , his general condition does not permit for for further investigation, given her the report with the future plan patient will see his neurologist Dr. Orlando Parada for follow-up probably need another MRI of the brain in 3 months for clarification as well Patient had history of prostate cancer and PSA done on this admission 0.1. And he was treated by radiation therapy. Patient doesn't have any indication of multiple myeloma or criteria which she mentioned by the radiologist and the report of the MRI and discussed with the as well. Assessment: #1 bilateral hemispheric CVA probably associated with history of atrial fibrillation paroxysmal, currently is normal sinus. #2 left parietal frontal enhancement 1.6 cm unknown etiology, patient is not in condition at this admission for for further investigation as discussed with the . #3 protein calorie deficiency secondary to CVA and dysphagia #4 dysphagia currently status post PEG tube placement by Dr. Parham and the sta rt the enteral feeding. #5 under lying he'll bilateral excoriation going under debridement by Dr. Gerson Qiu vascular surgeon. #6 history of stent in the LAD with the coronary artery disease atherosclerotic heart disease #7 atrial fibrillation paroxysmal currently sinus and tx Xarelto which increased from 15-20 due to CVA on the 15 dose. #8 hyperlipidemia #9 hypertension started on Vasotec IV. Plan: We'll continue the current treatment, and the recommendation by consulting specialist. DC'd IV D5 0.9 normal saline 75 mL an hour with the volume expansion and increased blood pressure Started on Vasotec 1.25 mg every 6 hours IV push if the blood pressure above 140 systolic. Patient still not ready to go to extended care facility long-term probably tomorrow if the bed is available and cleared by surgeons. Objective - Vital Signs Vital signs: Vital Signs Temp 98 F 05/02/22 08:00 Pulse 66 05/02/22 08:00 Resp 17 05/02/22 08:00 BP 169/81 05/02/22 08:00 Pulse Ox 97 05/02/22 08:00 FiO2 Intake & Output 05/01/22 05/02/22 05/02/22 18:59 06:59 18:59 Intake Total 600 Output Total 950 Balance -350 Weight 88.5 kg 93.5 kg Intake: Oral 600 Output: Urine 950 Other: Voiding Method Diaper External Catheter Indwelling Catheter Incontinent - Labs CBC & Chem 7: 04/27/22 09:01 04/30/22 06:46
[2022-05-02] MEDS: CYANOCOBALAMIN 500 MCG TAB PO SCH (16:34)
[2022-05-02] MEDS: RIVAROXABAN 20 MG TAB PO SCH (16:34)
[2022-05-02] MEDS: CHOLECALCIFEROL 25 MCG (1000 IU) TABLET PO SCH (16:34)
[2022-05-02] MEDS: MELATONIN 3 MG TABLET PO SCH (21:24)
[2022-05-02] MEDS: ATORVASTATIN 80 MG TAB PO SCH (21:24)
[2022-05-02] MEDS: MIRTAZAPINE 15 MG TAB PO SCH (21:25)
[2022-05-03] MEDS: HYDROcodone/APAP 5-325MG 1 EACH TAB PO PRN ×2 (02:46→20:10)
[2022-05-03] MEDS: AMIODARONE 200 MG TAB PO SCH (09:11)
[2022-05-03] MEDS: TROSPIUM CHLORIDE 20 MG TABLET PO SCH (09:12)
[2022-05-03] MEDS: TAMSULOSIN 0.4 MG CAP.ER.24H PO SCH (09:12)
[2022-05-03] MEDS: LACTATED RINGERS 1,000 ML IV SCH (09:13)
[2022-05-03 09:24] LABS: Basophils # (A) 0.01 X 10*3/uL (0.00-0.10); Basophils % (A) 0.1 %; Eosinophils # (A) 0.16 X 10*3/uL (0.04-0.35); Eosinophils % (A) 1.5 %; HCT 35.7 % (39.6-50.0); HGB 11.6 g/dL (13.0-17.0); Immature Grans, Automated 0.3 %; Lymphocytes # (A) 0.58 X 10*3/uL (0.90-5.00); Lymphocytes % (A) 5.4 %; MCHC 32.5 g/dL (32.0-37.0); MCV 101.4 fL (80.0-97.0); Mean Platelet Volume 9.8 fL (9.5-12.2); Monocytes # (A) 0.87 X 10*3/uL (0.20-1.00); Monocytes % (A) 8.1 %; NRBC Per 100 WBC 0 /100 WBCS (0.0-0.0); Neutrophils % (A) 84.6 %; Platelet Count 238 X 10*3/uL (140-440); RBC 3.52 X 10*6/uL (4.40-5.60); RDW 13.7 % (11.5-14.5); WBC 10.75 X 10*3/uL (4.50-10.00)
[2022-05-03] MEDS: PANTOPRAZOLE 40 MG/10 ML VIAL IVP SCH (09:46)
[2022-05-03 09:54] LABS: ALT 86 U/L (10-49); AST 59 U/L (14-35); African American GFR (CKD) 106.2 (60.0-200.0); Albumin 2.2 g/dL (3.8-4.9); Alkaline Phosphatase 132 U/L (41-126); BUN/Creat Ratio 23.71 Ratio (12.00-20.00); Bilirubin, Conjugated <0.20 mg/dL (0.20-0.40); Blood Urea Nitrogen 16.6 mg/dL (9.0-27.0); Calcium 8.1 mg/dL (8.7-10.3); Carbon Dioxide 23.9 mmol/L (20.0-27.5); Chloride 104 mmol/L (96-109); Glucose 118 mg/dL (70-110); Non-African American GFR(CKD) 91.7 (60.0-200.0); Potassium 3.9 mmol/L (3.5-5.5); Sodium 133 mmol/L (135-145); Total Protein 4.2 g/dL (6.2-8.2)
--- NOTE | 2022-05-03 11:11 | OP ---
OPERATIVE REPORT PREOPERATIVE DIAGNOSES: 1. Infected wound, right heel, measurement is 4 x 3 cm. 2. Plantar aspect 2 x 2 cm. POSTOPERATIVE DIAGNOSES: 1. Infected wound, right heel, measurement is 4 x 3 x 0.5 cm. 2. Plantar aspect, 2 x 2 x 0.5 cm. PROCEDURE PERFORMED: Debridement of the wound, right heel and also wound on the plantar aspect of the right foot. DESCRIPTION OF PROCEDURE: The patient was seen. Foot was prepped and draped in appropriate sterile manner. 1% lidocaine plain was infiltrated. The wound on the lateral aspect has some devitalized tissue, and there was scab formation noted. Using sharp knife, we excised the devitalized tissue and scab down to subcutaneous tissue, and tissue was sent for deep culture. After that, attention was paid to the heel. 1% lidocaine plain was infiltrated. Using knife, we then did the debridement of the right heel. All the devitalized tissue was removed down to subcutaneous tissue. There was some bleeding noted, pressure was held, and we used Medihoney gel applied to the both wounds, and pressure dressing applied. The patient tolerated the procedure well. PLAN: We will change the dressing using Medihoney gel on daily basis. The patient tolerated the procedure well. MMODL / IJN: [id number] /
--- NOTE | 2022-05-03 11:14 | P.PN ---
Subjective Progress Note Date: 05/03/22 CHIEF COMPLAINT: Dysphagia HISTORY OF PRESENT ILLNESS: Patient is status post PEG tube placement. Patient is tolerating tube feeds. Patient's tube feeds at 60 mL per hour. He denies any abdominal pain. Denies any nausea or vomiting. He is having flatus. No bowel movement. Afebrile. WBC 10.75 Hgb 11.6 platelets 238 Na 133 K 3.9 creatinine 0.7 PHYSICAL EXAM: VITAL SIGNS: Reviewed. GENERAL: Well-developed in no acute distress. ABDOMEN: Soft. Nondistended. Nontender. PEG tube site clean dry and intact NEUROLOGIC: Alert and oriented. Cranial nerves II through XII grossly intact. ASSESSMENT: 1. Dysphagia 2. Severe protein calorie malnutrition 3. History of CVA PLAN: -Continue to titrate tube feedings to goal -Continue supportive care Physician Hot Billet Shear Operator note has been reviewed by physician. Signing provider agrees with the documented findings, assessment, and plan of care. I have personally seen and examined the patient, reviewed the SOW MANAGER /PAs history, exam and MDM and agree with the assessment and plan as written. Based on total visit time, I have performed more than 50% of the visit. As above: Patient doing well today. Tolerating tube feeds at goal. Bolster loosened by an additional 0.5 cm. We'll sign off. Please call if needed. Objective - Vital Signs Vital signs: Vital Signs Temp 98.5 F 05/03/22 08:00 Pulse 84 05/03/22 08:00 Resp 17 05/03/22 08:00 BP 138/65 05/03/22 08:00 Pulse Ox 93 L 05/03/22 08:00 FiO2 Intake & Output 05/02/22 05/03/22 05/03/22 18:59 06:59 18:59 Intake Total 981 Output Total 600 Balance 981 -600 Weight 94.5 kg 94.5 kg Intake: Tube Feeding 800 Other 181 Output: Urine 600 Male - External 600 Other: Voiding Method Indwelling Catheter External Catheter External Catheter - Labs CBC & Chem 7: 05/03/22 05:13 05/03/22 05:13 Labs: Abnormal Lab Results - Last 24 Hours (Table) 05/03/22 05/03/22 Range/Units 05:13 05:13 WBC 10.75 H (4.50-10.00) X 10*3/uL RBC 3.52 L (4.40-5.60) X 10*6/uL Hgb 11.6 L (13.0-17.0) g/dL Hct 35.7 L (39.6-50.0) % MCV 101.4 H (80.0-97.0) fL MCH 33.0 H (27.0-32.0) pg Neutrophils # 9.10 H (1.80-7.70) X 10*3/uL Lymphocytes # 0.58 L (0.90-5.00) X 10*3/uL Sodium 133 L (135-145) mmol/L Anion Gap 5.10 L (10.00-18.00) mmol/L BUN/Creatinine Ratio 23.71 H (12.00-20.00) Ratio Glucose 118 H (70-110) mg/dL Calcium 8.1 L (8.7-10.3) mg/dL Conjugated Bilirubin <0.20 L (0.20-0.40) mg/dL AST 59 H (14-35) U/L ALT 86 H (10-49) U/L Alkaline Phosphatase 132 H (41-126) U/L Total Protein 4.2 L (6.2-8.2) g/dL Albumin 2.2 L (3.8-4.9) g/dL Albumin/Globulin Ratio 1.10 L (1.60-3.17) g/dL Microbiology - Last 24 Hours (Table) 05/02/22 14:34 Gram Stain - Preliminary Heel - Right Tissue Culture - Preliminary Presumptive MRSA 05/02/22 14:34 Anaerobic Culture - Preliminary Heel - Right
[2022-05-03] MEDS ORDERED: AMOXIC-POT CLAV 875-125MG 1 EACH TAB PEG/G-TUBE SCH (11:30)
--- NOTE | 2022-05-03 11:44 | US ---
EXAMINATION TYPE: US venous doppler duplex UE RT DATE OF EXAM: 05/03/2022 COMPARISON: NONE CLINICAL HISTORY: redness,edema,amd warm. Swelling to right arm, recent IV removed from right arm SIDE PERFORMED: Right Right Arm: Negative for DVT, Positive for SVT within right cephalic vein from level of mid bicep and upper forearm IMPRESSION: 1. Right upper extremity ultrasound negative for deep venous thrombosis. 2. Note is made of superficial venous thrombosis within the cephalic vein mid biceps and upper forear m region.
[2022-05-03] MEDS: ASPIRIN 81 MG PO SCH (12:41)
--- NOTE | 2022-05-03 13:04 | P.PN ---
Subjective Progress Note Date: 05/03/22 (Superficial venous thrombosis of the right arm on a Xarelto 20 mg.) Progress note date of service 05/03/[address] Talavera I was called the today was perfect service with the problem in the right upper arm and half of the forearm with erythema and edema and swelling reported by ДМИТРИЙ Barakat his nurse. Mild elevation of WBC Ultrasound ordered found that he had superficial venous thrombosis and despite that he is on Xarelto 20 mg. We discontinue any IV sites Debridement of the heel was presumptive MRSA by laboratories. Consultation with infectious disease, also consultation with the vascular s urgeon Dr. Qiu with the new event of right arm and elbow superficial venous thrombosis and despite of increasing the Xarelto to 20 mg Patient had on admission MRI indicating bilateral showering with emboli was considered related to paroxysmal atrial fibrillation and subsequently cardiology seen the patient increase Xarelto to 20 mg from 15 questionable failure of Xarelto 15 mg Documentations for MANISHA could not be done. Cardiology. Patient complaining of cough and he is currently on the feeding tube through PEG tube and the 60 mL an hour questionable aspiration and we will be obtaining a est x-ray as well Due to the above reconsulting hematology oncology Dr. Pathak for evaluation of the current problem and probability of resistance of Xarelto or any associated disease who be evaluated by oncology hematology. On exam patient is conscious alert oriented Head was normocephalic atraumatic his vital signs stable temperature 98.5 oral, heart rate 84 bpm regular sinus respiratory rate 17 and nonlabored Blood pressure 138/65 and a mean 89. He is on 2 L nasal cannula oxygen with sleep pulse ox 93. Oropharynx natural case, still has dysphonia with his voice still impaired and probability of that previously from the stroke and consultation with the ENT would be as outpatient as they contacted and stated that his outpatient exam. Chest: Lung is created bilaterally he had history of ex-smoker in the past with mild COPD and atelectasis. Heart history of paroxysmal atrial fibrillation currently sinus rhythm with normal ejection fraction Abdomen he had a PEG tube placement by Dr. Dean he had positive bowel sounds and he does not have any tenderness with palpation. Extremities: He had underlying he'll ulceration excoriation underwent a debridement and found that he had presumptive MRSA and consultation with infectious disease was requested. Psychiatry stable mood seen by the psychiatrist in this hospitalization and this started him on Remeron 15 mg on the second visit at at bedtime Neurologically: He had bilateral CVA acute on the top of chronic was a showering with emboli with a history of paroxysmal atrial fibrillation currently he is on sinus associated with weakness of the right upper and lower extremities and inability to walk and dysphagia. Assessment: #1 new event with swelling of lower half of the arm and the upper half of the forearm with erythematous, found with ultrasounds superficial venous thrombosis however patient currently on Xarelto 20 mg. #2 status post debridement of that he'll with positive for presumptive MRSA. #3 dysphagia secondary to the acute CVA bihemispheric acute on the top of chronic referred to paroxysmal atrial fibrillation. #4 hypertension with hypertensive heart disease controlled blood pressure. #5 hyperlipidemia #6 underlying failure of Xarelto highly considered with the consultation of hematology oncology. Plan: #1 consultation with the vascular surgeon Dr. Gerson Qiu for evaluation of the right upper arm superficial venous thrombosis despite patient on Xarelto 20 mg the maximum #2 erythema and swelling of the right lower arm and elbow and the right upper forearm secondary to the above. #[address] Crain infectious disease for evaluation and treatment with the underlying presumptive MRSA. #4 complaining of cough with the reaching the maximum of enteral feeding with through the PEG tube with a questionable underlying aspiration with the inability to distended the stomach with the symptomatic with cough. #5 consultation with hematology oncology for evaluation with the above recurrent thromboses with the current medication Xarelto #6 discussed with his at bedside. #7 time spent 40 minutes. Objective - Vital Signs Vital signs: Vital Signs Temp 98.5 F 05/03/22 08:00 Pulse 84 05/03/22 08:00 Resp 17 05/03/22 08:00 BP 138/65 05/03/22 08:00 Pulse Ox 93 L 05/03/22 08:00 FiO2 Intake & Output 05/02/22 05/03/22 05/03/22 18:59 06:59 18:59 Intake Total 981 Output Total 600 Balance 981 -600 Weight 94.5 kg 94.5 kg Intake: Tube Feeding 800 Other 181 Output: Urine 600 Male - External 600 Other: Voiding Method Indwelling Catheter External Catheter External Catheter - Labs CBC & Chem 7: 05/03/22 05:13 05/03/22 05:13 Labs: Abnormal Lab Results - Last 24 Hours (Table) 05/03/22 05/03/22 Range/Units 05:13 05:13 WBC 10.75 H (4.50-10.00) X 10*3/uL RBC 3.52 L (4.40-5.60) X 10*6/uL Hgb 11.6 L (13.0-17.0) g/dL Hct 35.7 L (39.6-50.0) % MCV 101.4 H (80.0-97.0) fL MCH 33.0 H (27.0-32.0) pg Neutrophils # 9.10 H (1.80-7.70) X 10*3/uL Lymphocytes # 0.58 L (0.90-5.00) X 10*3/uL Sodium 133 L (135-145) mmol/L Anion Gap 5.10 L (10.00-18.00) mmol/L BUN/Creatinine Ratio 23.71 H (12.00-20.00) Ratio Glucose 118 H (70-110) mg/dL Calcium 8.1 L (8.7-10.3) mg/dL Conjugated Bilirubin <0.20 L (0.20-0.40) mg/dL AST 59 H (14-35) U/L ALT 86 H (10-49) U/L Alkaline Phosphatase 132 H (41-126) U/L Total Protein 4.2 L (6.2-8.2) g/dL Albumin 2.2 L (3.8-4.9) g/dL Albumin/Globulin Ratio 1.10 L (1.60-3.17) g/dL Microbiology - Last 24 Hours (Table) 05/02/22 14:34 Gram Stain - Preliminary Heel - Right Tissue Culture - Preliminary Presumptive MRSA 05/02/22 14:34 Anaerobic Culture - Preliminary Heel - Right
--- NOTE | 2022-05-03 14:21 | XR ---
EXAMINATION TYPE: XR chest 2V DATE OF EXAM: 05/03/2022 COMPARISON: Chest x-ray April 27, 2022 HISTORY: Cough and aspiration. TECHNIQUE: Frontal and lateral views of the chest are obtained. FINDINGS: Low lung volumes with increased interstitial markings bilaterally is redemonstrated. New l eft basilar opacity. The cardiac silhouette size is mildly enlarged with multiple tiny bilateral ple ural effusions seen best on lateral view. The osseous structures remain demineralized. IMPRESSION: Mild cardiomegaly with small to tiny bilateral pleural effusions. Correlate for CHF exac erbation. Developing left basilar acute infiltrate and/or atelectasis is noted. Progress study advise katherin
[2022-05-03] MEDS ORDERED: VANCOMYCIN IV PER PHARMACY 1 EACH MISC MISCELLANE PRN (14:52)
[2022-05-03] MEDS: VANCOMYCIN 1,500 MG in SODIUM CHLORIDE 0.9% 500 ML 500 ML IVPB SCH (16:34)
--- NOTE | 2022-05-03 17:44 | P.CONS ---
History of Present Illness - Reason for Consult Consult date: 05/03/22 lucent lesion skull, anemia - History of Present Illness The patient is a 76-year-old white male with multiple medical problems. The patient had a stroke about 5 years ago with residual right-sided weakness. However he did recover, with improvement in speech, normal swallowing as well as inability to perform his ADLs with some limitations. He does have A. fib, and is on amiodarone and there are 2. The patient had a fall some weeks ago, and fractured his right hip after which he was sent to [facility] for rehab. It appears that in rehab he has had progressive deterioration, with progressive hoarseness and decreased volume of his voice, inability to swallow, and loss of weight of about 30 pounds. Prior to this admission the patient had come to the ER where he had a CT of the brain did not show any new findings. At that time he was treated for UTI. During this admission the patient had an MRI of the brain, that showed multiple small areas of ischemic change, as well as an area in the right parietal white matter concerning for subacute ischemia. 1.6 cm enhancing lesion was seen in the left frontal bone, corresponding to lucency on computed tomography scan. Metastasis versus myeloma warfarin to be in the differential due to which consult was placed. The patient had an EGD this admission, which was negative for any mass lesions or ulcers. He had a PEG placed via the EGD. He is also had CT of the abdomen and pelvis, and chest x-ray showing no evidence of malignancy. Doppler of the right upper extremity showed a superficial thrombus. The patient has a history of prostate cancer treated with external beam radiation about 4 years ago. His PSA this admission was 0.1. CBC on admission was normal, with subsequently hemoglobin showing a drop into the 11-12 range. Creatinine is normal. Liver enzymes have shown mild elevation but were normal at the time of admission. Review of Systems Constitutional: Reports poor appetite, Reports weakness, Reports weight loss Eyes: denies blurred vision, denies pain Ears: deny: decreased hearing, ear discharge, earache, tinnitus Ears, nose, mouth and throat: Reports dysphagia, Reports hoarseness Cardiovascular: Reports decreased exercise tolerance Respiratory: Denies cough Gastrointestinal: Denies abdominal pain, Denies diarrhea, Denies nausea, Denies vomiting Genitourinary: Reports incontinence Musculoskeletal: Reports muscle weakness Integumentary: Reports foot/leg ulcers (Right foot) Neurological: Reports as per HPI, Reports gait dysfunction, Reports paralysis Psychiatric: Reports anxiety Endocrine: Reports fatigue, Reports weight change Hematologic/Lymphatic: Reports as per HPI Past Medical History Past Medical History: Atrial Fibrillation, Cancer, CVA/TIA, Hyperlipidemia, Hypertension, Sleep Apnea/CPAP/BIPAP Additional Past Medical History / Comment(s): prostate cancer- tx with radiation 2019 , 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 History of atrial fibrillation on Xarelto History of Any Multi-Drug Resistant Organisms: None Reported Past Surgical History: Heart Catheterization With Stent, Hernia Repair Additional Past Surgical History / Comment(s): one cardiac stent, irene cataracts, Past Anesthesia/Blood Transfusion Reactions: No Reported Reaction Additional Past Anesthesia/Blood Transfusion Reaction / Comm: PT NEVER HAS HAD A BLOOD TRANSFUSION. Date of Last Stent Placement:: 05/12/14 Smoking Status: Former smoker - Past Family History Mother Family Medical History: Coronary Artery Disease (CAD) Additional Family Medical History / Comment(s): MOTHER HAD CABG. SHE AT AGE 91 YRS. Medications and Allergies Home Medications Medication Instructions Recorded Confirmed Type Amiodarone [Cordarone] 200 mg PO DAILY@0800 11/04/16 04/24/22 History Aspirin EC [Ecotrin Low Dose] 81 mg PO DAILY@1200 11/04/16 04/24/22 History Rivaroxaban [Xarelto] 15 mg PO DAILY@0800 11/04/16 04/24/22 History Atorvastatin [Lipitor] 80 mg PO HS@2100 03/01/19 04/24/22 History Cholecalciferol (Vitamin D3) 75 mcg PO DAILY@1700 03/25/22 04/24/22 History [Vitamin D3 (3000 Iu)] Solifenacin Succinate 10 mg PO DAILY@0800 03/25/22 04/24/22 History Tamsulosin HCl [Flomax] 0.4 mg PO DAILY@0800 03/25/22 04/24/22 History lisinopriL [Zestril] 10 mg PO DAILY@0800 03/25/22 04/24/22 History Ciprofloxacin HCl [Cipro] 500 mg PO BID@0800,2100 04/24/22 04/24/22 History Cyanocobalamin [Vitamin B-12] 1,000 mcg PO DAILY@1700 04/24/22 04/24/22 History Ensure Enlive 237 ml PO TID@0800,1200,1700 04/24/22 04/24/22 History HYDROcodone/APAP 5-325MG [[place] 1 tab PO Q6HR PRN 04/24/22 04/24/22 History 5-325] Magnesium Hydroxide [Milk of 7,200 mg PO Q48H PRN 04/24/22 04/24/22 History Magnesia Concentrate] Melatonin 1 mg PO HS@2100 04/24/22 04/24/22 History Na Phos,M-B/Na Phos,Di-Ba [Fleet 133 ml RECTAL DAILY PRN 04/24/22 04/24/22 History Adult] Ondansetron [Zofran] 4 mg PO Q8HR PRN 04/24/22 04/24/22 History Sennosides [Senokot] 17.2 mg PO HS@2100 04/24/22 04/24/22 History bisacodyL [Dulcolax] 10 mg RECTAL DAILY PRN 04/24/22 04/24/22 History polyethylene glycoL 3350 [Miralax] 17 gm PO DAILY@0800 04/24/22 04/24/22 History Allergies Allergy/AdvReac Type Severity Reaction Status Date / Time No Known Allergies Allergy Verified 04/24/22 17:10 Physical Exam Vitals: Vital Signs Temp Pulse Resp BP Pulse Ox 05/03/22 14:00 99.7 F H 84 16 147/74 93 L 05/03/22 08:00 98.5 F 84 17 138/65 93 L 05/03/22 01:54 98.2 F 72 16 129/69 92 L 05/02/22 19:30 98.1 F 67 17 147/74 97 Intake and Output 05/03/22 05/03/22 05/03/22 06:59 14:59 22:59 Output Total 600 100 Balance -600 -100 Output: Urine 600 Male - External 600 Emesis 100 Other: Voiding Method External Catheter Weight 94.5 kg 94.5 kg - Constitutional General appearance: no acute distress - EENT Eyes: EOMI, PERRLA ENT: hearing grossly normal, normal oropharynx - Neck Neck: no lymphadenopathy Thyroid: bilateral: normal size - Respiratory Respiratory: bilateral: CTA - Cardiovascular Rhythm: irregularly irregular Heart sounds: normal: S1, S2 - Gastrointestinal PEG tube in situ. Insertion site clean General gastrointestinal: normal bowel sounds, soft - Integumentary Integumentary: normal - Neurologic Neurologic: focal deficits (Hoarseness, dysarthria. Right upper and lower extremity weakness) - Musculoskeletal Musculoskeletal: right sided weakness - Psychiatric Psychiatric: A&O x's 3, appropriate affect Results CBC & Chem 7: 05/03/22 05:13 05/03/22 05:13 Labs: Abnormal Lab Results - Last 24 Hours (Table) 05/03/22 05/03/22 05/03/22 Range/Units 05:13 05:13 15:09 WBC 10.75 H (4.50-10.00) X 10*3/uL RBC 3.52 L (4.40-5.60) X 10*6/uL Hgb 11.6 L (13.0-17.0) g/dL Hct 35.7 L (39.6-50.0) % MCV 101.4 H (80.0-97.0) fL MCH 33.0 H (27.0-32.0) pg Neutrophils # 9.10 H (1.80-7.70) X 10*3/uL Lymphocytes # 0.58 L (0.90-5.00) X 10*3/uL ESR 35 H (0-15) mm/hr Sodium 133 L (135-145) mmol/L Anion Gap 5.10 L (10.00-18.00) mmol/L BUN/Creatinine Ratio 23.71 H (12.00-20.00) Ratio Glucose 118 H (70-110) mg/dL Calcium 8.1 L (8.7-10.3) mg/dL Conjugated Bilirubin <0.20 L (0.20-0.40) mg/dL AST 59 H (14-35) U/L ALT 86 H (10-49) U/L Alkaline Phosphatase 132 H (41-126) U/L C-Reactive Protein (<1.0) mg/dL Total Protein 4.2 L (6.2-8.2) g/dL Albumin 2.2 L (3.8-4.9) g/dL Albumin/Globulin Ratio 1.10 L (1.60-3.17) g/dL 05/03/22 Range/Units 15:09 WBC (4.50-10.00) X 10*3/uL RBC (4.40-5.60) X 10*6/uL Hgb (13.0-17.0) g/dL Hct (39.6-50.0) % MCV (80.0-97.0) fL MCH (27.0-32.0) pg Neutrophils # (1.80-7.70) X 10*3/uL Lymphocytes # (0.90-5.00) X 10*3/uL ESR (0-15) mm/hr Sodium (135-145) mmol/L Anion Gap (10.00-18.00) mmol/L BUN/Creatinine Ratio (12.00-20.00) Ratio Glucose (70-110) mg/dL Calcium (8.7-10.3) mg/dL Conjugated Bilirubin (0.20-0.40) mg/dL AST (14-35) U/L ALT (10-49) U/L Alkaline Phosphatase (41-126) U/L C-Reactive Protein 6.8 H (<1.0) mg/dL Total Protein (6.2-8.2) g/dL Albumin (3.8-4.9) g/dL Albumin/Globulin Ratio (1.60-3.17) g/dL Microbiology - Last 24 Hours (Table) 05/02/22 14:34 Gram Stain - Preliminary Heel - Right Tissue Culture - Preliminary Presumptive MRSA 05/02/22 14:34 Anaerobic Culture - Preliminary Heel - Right Chest x-ray: report reviewed CT scan - abdomen: report reviewed CT scan - pelvis: report reviewed MRI - head: report reviewed Venous US: report reviewed Assessment and Plan (1) Bone lesion Narrative/Plan: The patient was found to have a 1.6 cm bone lesion in the left frontal area on MRI . This is an incidental finding. It corresponds to a lucent lesion on computed tomography scan. - Possible etiologies were discussed in detail. While malignancy is not ruled out, asymptomatic lesions of this nature, found incidentally are typically benign, usually venous lakes but - Additional workup will be ordered with a bone scan. I will also check protein electrophoresis studies. - The patient has no evidence of malignancy on CT of the abdomen and pelvis, or chest x-ray. He also had an EGD for PEG placement, the did not show any suspicious lesions either. Current Visit: Yes Status: Acute Code(s): M89.9 - DISORDER OF BONE, UNSPECIFIED SNOMED Code(s): 737612491 (2) Adenocarcinoma of prostate Narrative/Plan: Treated definitively with external beam radiation. Current PSA indicates continued remission. Current Visit: No Status: Acute Code(s): C61 - MALIGNANT NEOPLASM OF PROSTATE SNOMED Code(s): 394201816 Plan: Anemiathis is quite mild, normochromic and normocytic. This most likely is due to hospitalization, with blood draws and fluids. Other anemia workup, in addition to protein electrophoresis studies mentioned above will be ordered
--- NOTE | 2022-05-03 17:45 | P.PN ---
Progress Note - Text Patient was seen regarding her right upper arm swelling ultrasound showed us right arm cephalic vein thrombophlebitis no evidence of deep vein thrombosis patient is on decub ablation probably because of his heart at this point a superficial thrombophlebitis we will watch very closely patient had a debridement of the right heel wound continue with local wound care using medihoney gel dressing should be changed daily
[2022-05-03] MEDS: CHOLECALCIFEROL 25 MCG (1000 IU) TABLET PO SCH (18:25)
[2022-05-03] MEDS: CYANOCOBALAMIN 500 MCG TAB PO SCH (18:25)
[2022-05-03] MEDS: RIVAROXABAN 20 MG TAB PO SCH (18:25)
[2022-05-03] MEDS: MELATONIN 3 MG TABLET PO SCH (20:10)
[2022-05-03] MEDS: AMOXIC-POT CLAV 875-125MG 1 EACH TAB PO SCH (20:10)
[2022-05-03] MEDS: MIRTAZAPINE 15 MG TAB PO SCH (20:10)
[2022-05-03] MEDS: ATORVASTATIN 80 MG TAB PO SCH (22:35)
--- NOTE | 2022-05-03 23:42 | P.CONS ---
History of Present Illness - Reason for Consult Consult date: 05/03/22 Right heel infected pressure ulcer Requesting physician: Vamshi Iniguez - Chief Complaint Right heel wound x weeks - History of Present Illness Patient is a 76-year-old male with a past medical history pertinent for atrial fibrillation hypertension hyperlipidemia CVA TIA in this patient has been in the hospital for about 10 days now with initial presentation on 04/24/2022 for evaluation of worsening weakness and difficulty eating and has been evaluated and managed by neurology as well as general surgery and cardiology services patient also have a wound to the right heel area that has been debrided by vascular surgery yesterday and cultures were obtained which are now growing present MRSA that has prompted this infectious disease consultation patient has been afebrile mostly during this hospital stay he did have a low- grade fever 100.1 on 04/26/2022 and a low-grade fever of 99.7 this afternoon patient currently denies having any headache no chest pain shortness of breath or cough no abdominal pain patient did not have significant sensation to the ri ght heel area as denies significant pain, mention has been dealing with this wound since he has been at the longterm however is not very clear the type of treatment he has received for it for surgical documentation from yesterday did not mention any exertion down to the wound Review of Systems Positive point has been mentioned in the HPI rest of the systems are negative Past Medical History Past Medical History: Atrial Fibrillation, Cancer, CVA/TIA, Hyperlipidemia, Hypertension, Sleep Apnea/CPAP/BIPAP Additional Past Medical History / Comment(s): prostate cancer- tx with radiation 2019 , 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 History of atrial fibrillation on Xarelto History of Any Multi-Drug Resistant Organisms: None Reported Past Surgical History: Heart Catheterization With Stent, Hernia Repair Additional Past Surgical History / Comment(s): one cardiac stent, irene cataracts, Past Anesthesia/Blood Transfusion Reactions: No Reported Reaction Additional Past Anesthesia/Blood Transfusion Reaction / Comm: PT NEVER HAS HAD A BLOOD TRANSFUSION. Date of Last Stent Placement:: 05/12/14 Smoking Status: Former smoker - Past Family History Mother Family Medical History: Coronary Artery Disease (CAD) Additional Family Medical History / Comment(s): MOTHER HAD CABG. SHE AT AGE 91 YRS. Medications and Allergies Home Medications Medication Instructions Recorded Confirmed Type Amiodarone [Cordarone] 200 mg PO DAILY@0800 11/04/16 04/24/22 History Aspirin EC [Ecotrin Low Dose] 81 mg PO DAILY@1200 11/04/16 04/24/22 History Rivaroxaban [Xarelto] 15 mg PO DAILY@0800 11/04/16 04/24/22 History Atorvastatin [Lipitor] 80 mg PO HS@2100 03/01/19 04/24/22 History Cholecalciferol (Vitamin D3) 75 mcg PO DAILY@1700 03/25/22 04/24/22 History [Vitamin D3 (3000 Iu)] Solifenacin Succinate 10 mg PO DAILY@0800 03/25/22 04/24/22 History Tamsulosin HCl [Flomax] 0.4 mg PO DAILY@0800 03/25/22 04/24/22 History lisinopriL [Zestril] 10 mg PO DAILY@0800 03/25/22 04/24/22 History Ciprofloxacin HCl [Cipro] 500 mg PO BID@0800,2100 04/24/22 04/24/22 History Cyanocobalamin [Vitamin B-12] 1,000 mcg PO DAILY@1700 04/24/22 04/24/22 History Ensure Enlive 237 ml PO TID@0800,1200,1700 04/24/22 04/24/22 History HYDROcodone/APAP 5-325MG [[place] 1 tab PO Q6HR PRN 04/24/22 04/24/22 History 5-325] Magnesium Hydroxide [Milk of 7,200 mg PO Q48H PRN 04/24/22 04/24/22 History Magnesia Concentrate] Melatonin 1 mg PO HS@2100 04/24/22 04/24/22 History Na Phos,M-B/Na Phos,Di-Ba [Fleet 133 ml RECTAL DAILY PRN 04/24/22 04/24/22 History Adult] Ondansetron [Zofran] 4 mg PO Q8HR PRN 04/24/22 04/24/22 History Sennosides [Senokot] 17.2 mg PO HS@2100 04/24/22 04/24/22 History bisacodyL [Dulcolax] 10 mg RECTAL DAILY PRN 04/24/22 04/24/22 History polyethylene glycoL 3350 [Miralax] 17 gm PO DAILY@0800 04/24/22 04/24/22 History Allergies Allergy/AdvReac Type Severity Reaction Status Date / Time No Known Allergies Allergy Verified 04/24/22 17:10 Physical Exam Vitals: Vital Signs Temp Pulse Resp BP Pulse Ox 05/03/22 08:00 98.5 F 84 17 138/65 93 L 05/03/22 01:54 98.2 F 72 16 129/69 92 L 05/02/22 19:30 98.1 F 67 17 147/74 97 05/02/22 14:00 97.4 F L 69 17 146/71 96 Intake and Output 05/02/22 05/03/22 05/03/22 22:59 06:59 14:59 Output Total 600 Balance -600 Output: Urine 600 Male - External 600 Other: Voiding Method External Catheter External Catheter Weight 94.5 kg 94.5 kg GENERAL DESCRIPTION: Elderly male lying in bed, no distress. No tachypnea or accessory muscle of respiration use. HEENT: Shows Pallor , no scleral icterus. Oral mucous membrane is dry. No pharyngeal erythema or thrush NECK: Trachea central, no thyromegaly. LUNGS: Unlabored breathing. Clear to auscultation anteriorly. No wheeze or crackle. HEART: S1, S2, regular rate and rhythm. No loud murmur ABDOMEN: Soft, no tenderness , guarding or rigidity, no organomegaly EXTREMITIES: Right heel wound is currently dressed in the OR dressing no drainage of the dressing SKIN: No rash, no masses palpable. NEUROLOGICAL: The patient is awake, alert, oriented x3, mood and affect normal. Results CBC & Chem 7: 05/03/22 05:13 05/03/22 05:13 Labs: Abnormal Lab Results - Last 24 Hours (Table) 05/03/22 05/03/22 Range/Units 05:13 05:13 WBC 10.75 H (4.50-10.00) X 10*3/uL RBC 3.52 L (4.40-5.60) X 10*6/uL Hgb 11.6 L (13.0-17.0) g/dL Hct 35.7 L (39.6-50.0) % MCV 101.4 H (80.0-97.0) fL MCH 33.0 H (27.0-32.0) pg Neutrophils # 9.10 H (1.80-7.70) X 10*3/uL Lymphocytes # 0.58 L (0.90-5.00) X 10*3/uL Sodium 133 L (135-145) mmol/L Anion Gap 5.10 L (10.00-18.00) mmol/L BUN/Creatinine Ratio 23.71 H (12.00-20.00) Ratio Glucose 118 H (70-110) mg/dL Calcium 8.1 L (8.7-10.3) mg/dL Conjugated Bilirubin <0.20 L (0.20-0.40) mg/dL AST 59 H (14-35) U/L ALT 86 H (10-49) U/L Alkaline Phosphatase 132 H (41-126) U/L Total Protein 4.2 L (6.2-8.2) g/dL Albumin 2.2 L (3.8-4.9) g/dL Albumin/Globulin Ratio 1.10 L (1.60-3.17) g/dL Microbiology - Last 24 Hours (Table) 05/02/22 14:34 Gram Stain - Preliminary Heel - Right Tissue Culture - Preliminary Presumptive MRSA 05/02/22 14:34 Anaerobic Culture - Preliminary Heel - Right Assessment and Plan (1) Open wound of right heel Current Visit: Yes Status: Acute Code(s): S91.301A - UNSPECIFIED OPEN WOUND, RIGHT FOOT, INITIAL ENCOUNTER SNOMED Code(s): 413799149 (2) MRSA (methicillin resistant staph aureus) culture positive Current Visit: Yes Status: Acute Code(s): Z22.322 - CARRIER OR SUSPECTED CARRIER OF METHICILLIN RESIS STAPH SNOMED Code(s): 937477675 Plan: 1patient with right heel infected pressure ulcer in this patient with status post surgical debridement did not mention any extension down to the bone however will be discussed further with the vascular surgery culture now showing presumptive MRSA patient did have a low-grade fever and mild elevated white count with a left shift. 2we will obtain blood culture check a CRP and sed rate. 3vancomycin pharmacy to dose target trough of 15 while watching kidney func tion and vancomycin trough closely. 4local wound care to continue per vascular surgery. We will follow on clinical condition and cultures to further adjust medication if needed Thank you for this consultation will follow this patient along with you Time with Patient: Greater than 30
[2022-05-04] MEDS: VANCOMYCIN 1,500 MG in SODIUM CHLORIDE 0.9% 500 ML 500 ML IVPB SCH ×2 (04:27→18:03)
[2022-05-04] MEDS: HYDROcodone/APAP 5-325MG 1 EACH TAB PO PRN (04:28)
[2022-05-04] MEDS: LACTATED RINGERS 1,000 ML IV SCH (10:28)
[2022-05-04] MEDS: TAMSULOSIN 0.4 MG CAP.ER.24H PO SCH (10:29)
[2022-05-04] MEDS: AMIODARONE 200 MG TAB PO SCH (10:29)
[2022-05-04] MEDS: TROSPIUM CHLORIDE 20 MG TABLET PO SCH (10:29)
[2022-05-04] MEDS: AMOXIC-POT CLAV 875-125MG 1 EACH TAB PO SCH ×2 (10:30→22:04)
[2022-05-04] MEDS: PANTOPRAZOLE 40 MG/10 ML VIAL IVP SCH (11:03)
[2022-05-04 11:16] LABS: Basophils # (A) 0.02 X 10*3/uL (0.00-0.10); Basophils % (A) 0.2 %; Eosinophils # (A) 0.12 X 10*3/uL (0.04-0.35); Eosinophils % (A) 1.1 %; HCT 32.9 % (39.6-50.0); HGB 10.4 g/dL (13.0-17.0); Immature Grans, Automated 0.5 %; Lymphocytes # (A) 0.83 X 10*3/uL (0.90-5.00); Lymphocytes % (A) 7.8 %; MCH 32.7 pg (27.0-32.0); MCHC 31.6 g/dL (32.0-37.0); MCV 103.5 fL (80.0-97.0); Mean Platelet Volume 9.9 fL (9.5-12.2); Monocytes % (A) 10.4 %; NRBC Per 100 WBC 0 /100 WBCS (0.0-0.0); Neutrophils # (A) 8.47 X 10*3/uL (1.80-7.70); Platelet Count 250 X 10*3/uL (140-440); RBC 3.18 X 10*6/uL (4.40-5.60); RDW 13.8 % (11.5-14.5); WBC 10.59 X 10*3/uL (4.50-10.00)
[2022-05-04 11:46] LABS: Non-African American GFR(CKD) 93.2 (60.0-200.0)
[2022-05-04] MEDS: ASPIRIN 81 MG PO SCH (12:40)
--- NOTE | 2022-05-04 15:36 | P.PN ---
Subjective Progress Note Date: 05/04/22 This is a dictation on progress note Date of service 05/04/[address] Henriquez. Patient seen and evaluated [id number] and reviewed the consulting physician note: Infectious disease Dr. Crain did start patient on vancomycin was positive for MRSA per micro-biology laboratory. Right upper arm and right forearm with the presence of superficial thrombosis of the vein, patient seen and evaluated by Dr. Gerson Qiu vascular surgeon and he stated that it is not a deep vein not concerning. Chest x-ray because of his coughing indicating pleural effusion his IV fluid has been discontinued. No shortness of breath. Laboratories: Indicating elevated CRP, iron is low with elevated serum ferritin In regard of anticoagulation with Xarelto will be continuing the same dose no clear common comment in regard of continuation of discontinuation or this finding is incidental. Patient seen by Dr. Pathak hematology oncology and he is investigating with several laboratories and in regard of 1.6 cm enhancement of the parietofrontal lesion on the left side. Patient currently infusing with the enteral feeding currently reaching the goal for 64 mL/h no symptoms no residual, no abdominal pain and positive bowel sounds and he had the PEG tube in place Patient is incontinent no Luo catheter. No specific complaint [id number] examination: Head was normocephalic and atraumatic pupil was equal reactive conjunctiva was pink sclera was nonicteric Oropharynx was negative was natural teeth, however his voice is impaired whispering dysarthria and he had appointment with Dr. Banks ENT probably next week Neck was supple no JVD no thyromegaly no lymphadenopathy trachea midline Chest was clear to auscultation and percussion The heart currently regular sinus rhythm with the underlying paroxysmal atrial f ibrillation with the ejection fraction 50-55 normal Abdomen positive bowel sounds, PEG tube feeding in place and functioning. No tenderness no distention. Lower extremities positive pulses no edema right heel ulcer debridement showed to be MRSA positive and started on vancomycin by infectious disease Dr. Crain. Neurology he had bilateral normocephalic acute CVA on chronic with dysphonia. Psychiatry stable mood on Remeron per psychiatrist Patient stable currently with the above finding his vital sign stable Assessment: #1 future plan for MRSA treatment as currently started on vancomycin with the expectation next week to be transferred [facility] and any for further prolongation of treatment with the monitoring his renal function with the vancomycin. #2 continuation with his feeding #[address] Pathak ordered some laboratories and will see the result s of heriberto Friday and for further recommendation from Dr. Crain as needed for the treatment of the MRSA. Objective - Vital Signs Vital signs: Vital Signs Temp 97.9 F 05/04/22 14:00 Pulse 67 05/04/22 14:00 Resp 18 05/04/22 14:00 BP 132/70 05/04/22 14:00 Pulse Ox 92 L 05/04/22 14:00 FiO2 Intake & Output 05/03/22 05/04/22 05/04/22 18:59 06:59 18:59 Intake Total 1508 10 Output Total 340 100 Balance -340 1408 10 Weight 94.5 kg 100 kg 100 kg Intake: IV 10 Invasive Line 3 10 Intake, IV Titration 500 Amount Vancomycin 1,500 mg In 500 Sodium Chloride 0.9% 500 ml 500 ml @ 167 mls/hr IVPB Q12H [facility] Rx#: [id number] Oral 240 Tube Feeding 768 Output: Urine 240 100 Male - External 100 Emesis 100 Other: Voiding Method External Catheter External Catheter External Catheter - Labs CBC & Chem 7: 05/04/22 07:04 05/04/22 07:04 Labs: Abnormal Lab Results - Last 24 Hours (Table) 05/03/22 05/03/22 05/04/22 Range/Units 15:09 15:09 07:04 WBC 10.59 H (4.50-10.00) X 10*3/uL RBC 3.18 L (4.40-5.60) X 10*6/uL Hgb 10.4 L (13.0-17.0) g/dL Hct 32.9 L (39.6-50.0) % MCV 103.5 H (80.0-97.0) fL MCH 32.7 H (27.0-32.0) pg MCHC 31.6 L (32.0-37.0) g/dL Immature Gran # 0.05 H (0.00-0.04) X 10*3/uL Neutrophils # 8.47 H (1.80-7.70) X 10*3/uL Lymphocytes # 0.83 L (0.90-5.00) X 10*3/uL Monocytes # 1.10 H (0.20-1.00) X 10*3/uL ESR 35 H (0-15) mm/hr Iron (65-175) ug/dL Ferritin (22.0-322.0) ng/mL C-Reactive Protein 6.8 H (<1.0) mg/dL Vitamin B12 (200.0-944.0) pg/mL 05/04/22 Range/Units 07:04 WBC (4.50-10.00) X 10*3/uL RBC (4.40-5.60) X 10*6/uL Hgb (13.0-17.0) g/dL Hct (39.6-50.0) % MCV (80.0-97.0) fL MCH (27.0-32.0) pg MCHC (32.0-37.0) g/dL Immature Gran # (0.00-0.04) X 10*3/uL Neutrophils # (1.80-7.70) X 10*3/uL Lymphocytes # (0.90-5.00) X 10*3/uL Monocytes # (0.20-1.00) X 10*3/uL ESR (0-15) mm/hr Iron 24 L (65-175) ug/dL Ferritin 560.0 H (22.0-322.0) ng/mL C-Reactive Protein (<1.0) mg/dL Vitamin B12 2177.0 H (200.0-944.0) pg/mL Microbiology - Last 24 Hours (Table) 05/02/22 14:34 Gram Stain - Final Heel - Right Tissue Culture - Final Methicillin resist S. aureus
[2022-05-04] MEDS: CHOLECALCIFEROL 25 MCG (1000 IU) TABLET PO SCH (18:04)
[2022-05-04] MEDS: RIVAROXABAN 20 MG TAB PO SCH (18:04)
[2022-05-04] MEDS: CYANOCOBALAMIN 500 MCG TAB PO SCH (18:04)
[2022-05-04] MEDS: ONDANSETRON 4 MG TAB PO PRN (18:24)
[2022-05-04] MEDS: MELATONIN 3 MG TABLET PO SCH (22:03)
[2022-05-04] MEDS: ATORVASTATIN 80 MG TAB PO SCH (22:03)
[2022-05-04] MEDS: MIRTAZAPINE 15 MG TAB PO SCH (22:03)
--- NOTE | 2022-05-05 00:25 | P.PN ---
Subjective Progress Note Date: 05/04/22 Principal diagnosis: Right heel infected pressure ulcer Patient is a 76 year old male with multiple comorbidities detention resident noticed to have a worsening pressure ulcer to the right heel status post debridement culture positive for MRSA. On today's evaluation that is 05/04/2022, the patient denies having any fever or chills, the patient is breathing comfortably denies any chest pain shortness of cough no nausea no vomiting. The right heel is currently controlled Objective - Vital Signs Vital signs: Vital Signs Temp 98.9 F 05/04/22 08:02 Pulse 69 05/04/22 08:57 Resp 15 05/04/22 08:57 BP 121/68 05/04/22 08:02 Pulse Ox 92 L 05/04/22 08:02 FiO2 Intake & Output 05/03/22 05/04/22 05/04/22 18:59 06:59 18:59 Intake Total 1508 10 Output Total 340 100 Balance -340 1408 10 Weight 94.5 kg 100 kg 100 kg Intake: IV 10 Invasive Line 3 10 Intake, IV Titration 500 Amount Vancomycin 1,500 mg In 500 Sodium Chloride 0.9% 500 ml 500 ml @ 167 mls/hr IVPB Q12H [facility] Rx#: [id number] Oral 240 Tube Feeding 768 Output: Urine 240 100 Male - External 100 Emesis 100 Other: Voiding Method External Catheter External Catheter External Catheter - Exam GENERAL DESCRIPTION: An elderly male lying in bed in no distress RESPIRATORY SYSTEM: Unlabored breathing , decreased breath sounds at bases HEART: S1 S2 regular rate and rhythm , ABDOMEN: Soft , no tenderness EXTREMITIES: Right he is currently dressed no drainage on the dressing - Labs CBC & Chem 7: 05/04/22 07:04 05/04/22 07:04 Labs: Abnormal Lab Results - Last 24 Hours (Table) 05/03/22 05/03/22 05/04/22 Range/Units 15:09 15:09 07:04 WBC 10.59 H (4.50-10.00) X 10*3/uL RBC 3.18 L (4.40-5.60) X 10*6/uL Hgb 10.4 L (13.0-17.0) g/dL Hct 32.9 L (39.6-50.0) % MCV 103.5 H (80.0-97.0) fL MCH 32.7 H (27.0-32.0) pg MCHC 31.6 L (32.0-37.0) g/dL Immature Gran # 0.05 H (0.00-0.04) X 10*3/uL Neutrophils # 8.47 H (1.80-7.70) X 10*3/uL Lymphocytes # 0.83 L (0.90-5.00) X 10*3/uL Monocytes # 1.10 H (0.20-1.00) X 10*3/uL ESR 35 H (0-15) mm/hr Iron (65-175) ug/dL Ferritin (22.0-322.0) ng/mL C-Reactive Protein 6.8 H (<1.0) mg/dL Vitamin B12 (200.0-944.0) pg/mL 05/04/22 Range/Units 07:04 WBC (4.50-10.00) X 10*3/uL RBC (4.40-5.60) X 10*6/uL Hgb (13.0-17.0) g/dL Hct (39.6-50.0) % MCV (80.0-97.0) fL MCH (27.0-32.0) pg MCHC (32.0-37.0) g/dL Immature Gran # (0.00-0.04) X 10*3/uL Neutrophils # (1.80-7.70) X 10*3/uL Lymphocytes # (0.90-5.00) X 10*3/uL Monocytes # (0.20-1.00) X 10*3/uL ESR (0-15) mm/hr Iron 24 L (65-175) ug/dL Ferritin 560.0 H (22.0-322.0) ng/mL C-Reactive Protein (<1.0) mg/dL Vitamin B12 2177.0 H (200.0-944.0) pg/mL Microbiology - Last 24 Hours (Table) 05/02/22 14:34 Gram Stain - Final Heel - Right Tissue Culture - Final Methicillin resist S. aureus Assessment and Plan (1) Open wound of right heel Current Visit: Yes Status: Acute Code(s): S91.301A - UNSPECIFIED OPEN WOUND, RIGHT FOOT, INITIAL ENCOUNTER SNOMED Code(s): 047946715 (2) MRSA (methicillin resistant staph aureus) culture positive Current Visit: Yes Status: Acute Code(s): Z22.322 - CARRIER OR SUSPECTED CARRIER OF METHICILLIN RESIS STAPH SNOMED Code(s): 093810250 Plan: 1patient with right heel infected pressure ulcer in this patient with status post surgical debridement did not mention any extension down to the bone however will be discussed further with the vascular surgery culture now showing presumptive MRSA patient did have a low-grade fever and mild elevated white count with a left shift. 2blood cultures are currently pending 3patient to continue with vancomycin pharmacy to dose target trough of 15 while watching kidney function and vancomycin trough closely. 4local wound care to continue per vascular surgery. Time with Patient: Less than 30
[2022-05-05] MEDS: ONDANSETRON 4 MG TAB PO PRN (02:00)
[2022-05-05] MEDS: VANCOMYCIN 1,500 MG in SODIUM CHLORIDE 0.9% 500 ML 500 ML IVPB SCH ×2 (05:09→16:29)
--- NOTE | 2022-05-05 05:34 | XR ---
EXAMINATION TYPE: XR abdomen 1V DATE OF EXAM: 05/05/2022 COMPARISON: 03/01/2019 HISTORY: Vomiting. PEG tube check TECHNIQUE: 3 views supine FINDINGS: There is some mild gaseous distended loops of small bowel in the abdomen. There is some con trast material in the large bowel. Large bowel is not dilated. There is right hip prosthesis. Lung ba ses are clear. There is some contrast material also in the stomach. IMPRESSION: There is a small bowel ileus. No definite free air. There is no contrast for evaluation o f the PEG tube.
--- NOTE | 2022-05-05 05:35 | XR ---
EXAMINATION TYPE: XR chest 1V portable DATE OF EXAM: 05/05/2022 COMPARISON: 05/03/2022 HISTORY: Hypoxemia TECHNIQUE: Single view FINDINGS: Heart size is normal. There are some coarsening of the interstitial markings in the lower l david carroll. Thoracic aorta is atheromatous. There are no hilar masses. IMPRESSION: Mild pulmonary interstitial density is likely related to pulmonary fibrosis. Inspiration is improved slightly compared to last exam.
[2022-05-05] MEDS: ONDANSETRON 4 MG/2 ML VIAL IVP PRN (07:57)
[2022-05-05] MEDS: ACETAMINOPHEN TAB 325 MG TAB PO PRN (07:57)
[2022-05-05] MEDS: TAMSULOSIN 0.4 MG CAP.ER.24H PO SCH (08:05)
[2022-05-05] MEDS: LACTATED RINGERS 1,000 ML IV SCH (08:05)
[2022-05-05] MEDS: AMIODARONE 200 MG TAB PO SCH (08:05)
[2022-05-05] MEDS: TROSPIUM CHLORIDE 20 MG TABLET PO SCH (08:05)
[2022-05-05] MEDS: AMOXIC-POT CLAV 875-125MG 1 EACH TAB PO SCH ×2 (08:06→21:42)
[2022-05-05] MEDS: ASPIRIN 81 MG PO SCH (08:06)
[2022-05-05] MEDS: PANTOPRAZOLE 40 MG/10 ML VIAL IVP SCH (08:16)
[2022-05-05 10:29] LABS: HCT 37.3 % (39.6-50.0); HGB 12.2 g/dL (13.0-17.0); MCH 32.4 pg (27.0-32.0); MCHC 32.7 g/dL (32.0-37.0); MCV 98.9 fL (80.0-97.0); Mean Platelet Volume 9.7 fL (9.5-12.2); NRBC Per 100 WBC 0 /100 WBCS (0.0-0.0); Platelet Count 292 X 10*3/uL (140-440); RBC 3.77 X 10*6/uL (4.40-5.60); RDW 13.8 % (11.5-14.5); WBC 27.85 X 10*3/uL (4.50-10.00)
[2022-05-05 11:07] LABS: African American GFR (CKD) 107.5 (60.0-200.0); Anion Gap 9.1 mmol/L (10.00-18.00); BUN/Creat Ratio 27.02 Ratio (12.00-20.00); Blood Urea Nitrogen 18.4 mg/dL (9.0-27.0); Calcium 8.2 mg/dL (8.7-10.3); Carbon Dioxide 21.4 mmol/L (20.0-27.5); Non-African American GFR(CKD) 92.7 (60.0-200.0); Potassium 4.1 mmol/L (3.5-5.5)
[2022-05-05 11:29] LABS: Glucose,Whole Blood 125 mg/dL (70-110)
[2022-05-05] MEDS: ACETAMINOPHEN IV (For NPO) 1,000 MG in EMPTY BAG 1 BAG IVPB PRN (11:50)
[2022-05-05 12:44] LABS: Basophils # (A) 0.03 X 10*3/uL (0.00-0.10); Basophils % (A) 0.1 %; Crenated RBC 2+; Eosinophils # (A) 0 X 10*3/uL (0.04-0.35); Eosinophils % (A) 0 %; Immature Grans, Automated 0.7 %; Lymphocytes # (A) 0.23 X 10*3/uL (0.90-5.00); Lymphocytes % (A) 0.8 %; Monocytes # (A) 1.66 X 10*3/uL (0.20-1.00); Neutrophils # (A) 25.74 X 10*3/uL (1.80-7.70); Neutrophils % (A) 92.4 %
--- NOTE | 2022-05-05 13:44 | P.PN ---
Subjective Progress Note Date: 05/05/22 Patient with history of PEG tube placement 04/30/2022. Patient had acute desaturations early this morning at 4 AM. Notify by nurse. Patient's pre- existing congestive heart failure. 2 feeds has been held. Abdominal x-ray independent reviewed without perforation or free air. Abdominal x-ray report consistent with ileus. Additionally, multiple electrolyte dyscrasias. Severe hyponatremia. Recommend hold tube feeds. Correction of hyponatremia. Chest x- ray demonstrates new infiltrate questionable for aspiration pneumonia. Treatment for aspiration advised. No acute surgical intervention. Otherwise abdomen soft nontender without peritonitis. Family at bedside. Objective - Vital Signs Vital signs: Vital Signs Temp 98.4 F 05/05/22 13:41 Pulse 80 05/05/22 13:41 Resp 18 05/05/22 13:41 BP 110/68 05/05/22 13:41 Pulse Ox 94 L 05/05/22 13:41 FiO2 Intake & Output 05/04/22 05/05/22 05/05/22 18:59 06:59 18:59 Intake Total 10 Output Total 1 800 Balance 10 -1 -800 Weight 100 kg 102 kg Intake: IV 10 Invasive Line 3 10 Output: Urine 800 Urine/Stool Mix 1 Other: Voiding Method External Catheter External Catheter External Catheter # Bowel Movements 1 - Labs CBC & Chem 7: 05/05/22 07:20 05/05/22 07:20 Labs: Abnormal Lab Results - Last 24 Hours (Table) 05/05/22 05/05/22 05/05/22 Range/Units 07:20 07:20 11:27 WBC 27.85 H (4.50-10.00) X 10*3/uL RBC 3.77 L (4.40-5.60) X 10*6/uL Hgb 12.2 L (13.0-17.0) g/dL Hct 37.3 L (39.6-50.0) % MCV 98.9 H (80.0-97.0) fL MCH 32.4 H (27.0-32.0) pg Immature Gran # 0.19 H (0.00-0.04) X 10*3/uL Neutrophils # 25.74 H (1.80-7.70) X 10*3/uL Lymphocytes # 0.23 L (0.90-5.00) X 10*3/uL Monocytes # 1.66 H (0.20-1.00) X 10*3/uL Eosinophils # 0 L (0.04-0.35) X 10*3/uL Sodium 129 L (135-145) mmol/L Anion Gap 9.10 L (10.00-18.00) mmol/L BUN/Creatinine Ratio 27.02 H (12.00-20.00) Ratio Glucose 120 H (70-110) mg/dL POC Glucose (mg/dL) 125 H (70-110) mg/dL Calcium 8.2 L (8.7-10.3) mg/dL Microbiology - Last 24 Hours (Table) 05/03/22 15:09 Blood Culture - Preliminary Blood No Growth after 24 hours 05/02/22 14:34 Anaerobic Culture - Preliminary Heel - Right 05/02/22 14:34 Gram Stain - Final Heel - Right Tissue Culture - Final Methicillin resist S. aureus
--- NOTE | 2022-05-05 14:57 | P.PN ---
Subjective Progress Note Date: 05/05/22 This is a progress note date of service 05/05/[address] Iniguez. Started on 05/04/2022 is receiving Effexor from Sanjana Ahmadi RN started that 9:50 PM continued every half an hour total this morning she did not follow order as I wrote on the perfect service. I did spoke with the current nursing staff. Currently taking care of the patient ДМИТРИЙ lang. And I showed her the frequency of of the call and subsequently somebody clear that up from my records. Patient seen and evaluated today. Patient also seen by pulmonary and critical care and did not indicate aspiration patient had already chest x-ray done and the abdominal x-ray done, also seen by Dr. Pearl surgeon and advised to keep the patient nothing by mouth for now until tomorrow and the Prilosec again. Apparently patient could not tolerate large amount of feeding with the have not been eating for 2 weeks and [place]kel of the stomach and need to gradually to be stretching the stomach over few weeks or months until he tolerated the maximum 64 mL/h. Laboratories and temperature during the night went up to 100 before however patient has MRSA in the right heel which was debrided and he was seen by infectious disease Dr. Crain and he is currently on vancomycin as well as Augmentin through the PEG tube. In regard of right lower arm and right upper arm edema swelling and erythema has been improved, seen by Dr. Gerson Qiu vascular surgeon and the patient had ultrasound was indicating superficial vein thrombosis and patient on Xarelto RN during the night was insisted repeat about should patient have CTA and d- dimer and and they did answer her to wait until seen by the pulmonary and the surgeon that she did not indicate why her question for what reason. Laboratory done this morning early hours indicating his white count went up to 27.85 and hemoglobin 12.2 with the underlying feeding has been stopped. Sodium 129 with hyponatremia secondary to the IV lactated Ringer, we discontinue the IV and started on 0.9 normal saline 50 mL an hour especially patient now nothing by mouth with no feeding through. Patient seen by Dr. Strong and he order laboratories which indicating that iron 24 in the low side however serum ferritin is elevated which consistent with the C- reactive protein elevation 6.8. He has also underlying elevated liver enzyme which is very mild and to minimal and his AST 59 a LT 86 alk phos 132. Vitamin B12 level 2177. Rest of his laboratory is not available yet and the diabetes has been controlled. ESR 35 mildly elevated as well and this CBC indicated crenated cells which indicate her of mild dehydration as well patient started on 0.9 normal saline 50 mL an hour and his GFR is stable 92.7. No evidence of hypertension and he has more of a dry cough and I did discontinue the trazodone tach IV could be a participating cause of cough. Vital sign this morning temperature 97.9 F oral, pulse 67, respiratory rate 18, blood pressure 132/70 and mean arterial pressure is 90, pulse ox recorded wrong with his oxygen currently 92% but he is in a 5 L by his nurse Florence. On physical examination: Patient's conscious alert stated that he had some vomiting lost night and he is still coughing. Seen by pulmonary and critical care as well as surgeon as well as infectious disease. Blood culture was done lost night. Head was normocephalic and atraumatic Oropharynx natural teeth, dry cough mesenteric has been discontinued Neck was supple no JVD no thyromegaly no lymphadenopathy trachea midline. Chest lung is created bilaterally and no evidence of aspiration seen by the pulmonary no agitated treatment. Heart history of paroxysmal atrial fibrillation, currently sinus rhythm stable no chest pain. Abdomen PEG tube in place, x-ray indicating possible ileus he is off the feeding for today as well and tomorrow may be trialed with a small dose. Extremities no edema of the lower extremities, he has a right upper arm lower and close to the elbow as well as the forearm upper and close to the elbow with the super fascial venous thrombosis was evaluated by the vascular surgeon. Psychiatry stable with the current treatment Neurology he had bilateral CVA with the showering with from PE as well as 1.6 enhancement in the left temporoparietal region. And consultation with hematology oncology also with the consideration of failure of Xarelto which is questionable. Assessment: #1 patient during the night multiple event with the communication with the RN during the night all night and [place]. With the vomiting and ileus and a headache and cough #2 leukocytosis with the event #3 right heel debridement positive for staph aureus methicillin. #4 dysphagia #5 protein calorie deficiency secondary to dysphagia and inability to eat with the weight loss 20 pounds. #6 bilateral CVA acute CVA secondary to paroxysmal atrial fibrillation acute on the top of chronic #7 left frontoparietal enhancement 1.6 oncology evaluation in progress. #8 hypertension is controlled #9 hyperlipidemia. Plan: #1 continue the current recommendation by pulmonary and critical, surgeon Dr. Pearl, infectious disease Dr. Crain, oncology hematology Dr. Pathak, biofuels production associate initially seen by Dr. Castellon and Dr. Charles alumni relations manager, neurology recommendation. #2 when the PEG tube functioning will be plan for transfer to residential of family's choice. Objective - Vital Signs Vital signs: Vital Signs Temp 98.4 F 05/05/22 13:41 Pulse 80 05/05/22 13:41 Resp 18 05/05/22 13:41 BP 110/68 05/05/22 13:41 Pulse Ox 94 L 05/05/22 13:41 FiO2 Intake & Output 05/04/22 05/05/22 05/05/22 18:59 06:59 18:59 Intake Total 10 Output Total 1 800 Balance 10 -1 -800 Weight 100 kg 102 kg Intake: IV 10 Invasive Line 3 10 Output: Urine 800 Urine/Stool Mix 1 Other: Voiding Method External Catheter External Catheter External Catheter # Bowel Movements 1 - Labs CBC & Chem 7: 05/05/22 07:20 05/05/22 07:20 Labs: Abnormal Lab Results - Last 24 Hours (Table) 05/05/22 05/05/22 05/05/22 Range/Units 07:20 07:20 11:27 WBC 27.85 H (4.50-10.00) X 10*3/uL RBC 3.77 L (4.40-5.60) X 10*6/uL Hgb 12.2 L (13.0-17.0) g/dL Hct 37.3 L (39.6-50.0) % MCV 98.9 H (80.0-97.0) fL MCH 32.4 H (27.0-32.0) pg Immature Gran # 0.19 H (0.00-0.04) X 10*3/uL Neutrophils # 25.74 H (1.80-7.70) X 10*3/uL Lymphocytes # 0.23 L (0.90-5.00) X 10*3/uL Monocytes # 1.66 H (0.20-1.00) X 10*3/uL Eosinophils # 0 L (0.04-0.35) X 10*3/uL Sodium 129 L (135-145) mmol/L Anion Gap 9.10 L (10.00-18.00) mmol/L BUN/Creatinine Ratio 27.02 H (12.00-20.00) Ratio Glucose 120 H (70-110) mg/dL POC Glucose (mg/dL) 125 H (70-110) mg/dL Calcium 8.2 L (8.7-10.3) mg/dL Microbiology - Last 24 Hours (Table) 05/03/22 15:09 Blood Culture - Preliminary Blood No Growth after 24 hours 05/02/22 14:34 Anaerobic Culture - Preliminary Heel - Right 05/02/22 14:34 Gram Stain - Final Heel - Right Tissue Culture - Final Methicillin resist S. aureus
[2022-05-05] MEDS ORDERED: VANCOMYCIN TROUGH DUE 1 EACH MISC MISCELLANE ONE (15:00)
--- NOTE | 2022-05-05 15:00 | P.CNPUL ---
History of Present Illness Consult date: 05/12/22 Requesting physician: Vamshi Iniguez Reason for consult: pneumonia (Aspiration pneumonia) Chief complaint: Weakness and failure to thrive History of present illness: This is a 76-year-old white male admitted initially on 04/24/22, patient has been in the hospital now for just over 10 days. Patient was admitted mostly with weakness and failure to thrive, he had no active pulmonary symptoms what soever. P patient had multiple electrolyte dyscrasia, severe hyponatremia, he also had atient was seen by many consultants since admission including internal medicine, neurology, psychiatry, cardiology, general surgery, oncology, basically the patient is being evaluated for ileus, he had a PEG tube placed on 04/21 31115 by general surgery, leukocytosis, patient also had worsening pressure ulcer to the right heel requiring debridement, and he had positive MRSA infection, this is being addressed by infectious disease on the case, and the patient is on vancomycin. At any rate the patient had a witnessed aspiration yesterday, apparently there was some issue with his PEG tube, patient aspirated and this was witnessed, hence this consult was initiated. Chest x-ray this morning showed mild interstitial density consistent most likely secondary to aspiration involving the right upper lobe and the left lower lobe. Nonetheless the patient is empirically covered with antibiotics, his feeding is presently on hold, and I recommended that his PEG tube gets placed on intermittent suction. Not much to be added from my perspective at this point. Patient is on 5 L nasal cannula and O2 sats 94%. He had a low-grade temp last night of 100.9 Review of Systems Constitutional: Reports poor appetite, Reports weakness, Reports weight loss Eyes: denies blurred vision, denies pain Ears: deny: decreased hearing, ear discharge, earache, tinnitus Ears, nose, mouth and throat: Reports dysphagia, Reports hoarseness Cardiovascular: Reports decreased exercise tolerance Respiratory: Denies cough Gastrointestinal: Denies abdominal pain, Denies diarrhea, Denies nausea, Denies vomiting Genitourinary: Reports incontinence Musculoskeletal: Reports muscle weakness Integumentary: Reports foot/leg ulcers (Right foot) Neurological: Reports as per HPI, Reports gait dysfunction, Reports paralysis Psychiatric: Reports anxiety Endocrine: Reports fatigue, Reports weight change Past Medical History Past Medical History: Atrial Fibrillation, Cancer, CVA/TIA, Hyperlipidemia, Hypertension, Sleep Apnea/CPAP/BIPAP Additional Past Medical History / Comment(s): prostate cancer- tx with radiation 2019 , 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 History of atrial fibrillation on Xarelto History of Any Multi-Drug Resistant Organisms: None Reported Past Surgical History: Heart Catheterization With Stent, Hernia Repair Additional Past Surgical History / Comment(s): one cardiac stent, irene cataracts, Past Anesthesia/Blood Transfusion Reactions: No Reported Reaction Additional Past Anesthesia/Blood Transfusion Reaction / Comment(s): PT NEVER HAS HAD A BLOOD TRANSFUSION. Date of Last Stent Placement:: 05/12/14 Smoking Status: Former smoker - Past Family History Mother Family Medical History: Coronary Artery Disease (CAD) Additional Family Medical History / Comment(s): MOTHER HAD CABG. SHE AT AGE 91 YRS. Medications and Allergies Home Medications Medication Instructions Recorded Confirmed Type Amiodarone [Cordarone] 200 mg PO DAILY@0800 11/04/16 04/24/22 History Aspirin EC [Ecotrin Low Dose] 81 mg PO DAILY@1200 11/04/16 04/24/22 History Rivaroxaban [Xarelto] 15 mg PO DAILY@0800 11/04/16 04/24/22 History Atorvastatin [Lipitor] 80 mg PO HS@2100 03/01/19 04/24/22 History Cholecalciferol (Vitamin D3) 75 mcg PO DAILY@1700 03/25/22 04/24/22 History [Vitamin D3 (3000 Iu)] Solifenacin Succinate 10 mg PO DAILY@0800 03/25/22 04/24/22 History Tamsulosin HCl [Flomax] 0.4 mg PO DAILY@0800 03/25/22 04/24/22 History lisinopriL [Zestril] 10 mg PO DAILY@0800 03/25/22 04/24/22 History Ciprofloxacin HCl [Cipro] 500 mg PO BID@0800,2100 04/24/22 04/24/22 History Cyanocobalamin [Vitamin B-12] 1,000 mcg PO DAILY@1700 04/24/22 04/24/22 History Ensure Enlive 237 ml PO TID@0800,1200,1700 04/24/22 04/24/22 History HYDROcodone/APAP 5-325MG [[place] 1 tab PO Q6HR PRN 04/24/22 04/24/22 History 5-325] Magnesium Hydroxide [Milk of 7,200 mg PO Q48H PRN 04/24/22 04/24/22 History Magnesia Concentrate] Melatonin 1 mg PO HS@2100 04/24/22 04/24/22 History Na Phos,M-B/Na Phos,Di-Ba [Fleet 133 ml RECTAL DAILY PRN 04/24/22 04/24/22 History Adult] Ondansetron [Zofran] 4 mg PO Q8HR PRN 04/24/22 04/24/22 History Sennosides [Senokot] 17.2 mg PO HS@2100 04/24/22 04/24/22 History bisacodyL [Dulcolax] 10 mg RECTAL DAILY PRN 04/24/22 04/24/22 History polyethylene glycoL 3350 [Miralax] 17 gm PO DAILY@0800 04/24/22 04/24/22 History Allergies Allergy/AdvReac Type Severity Reaction Status Date / Time No Known Allergies Allergy Verified 04/24/22 17:10 Physical Exam Vitals: Vital Signs Temp Pulse Resp BP Pulse Ox 05/05/22 13:41 98.4 F 80 18 110/68 94 L 05/05/22 11:30 98.1 F 05/05/22 09:14 100.9 F H 05/05/22 06:45 100.7 F H 107 H 20 170/91 90 L 05/05/22 05:43 36 H 05/05/22 04:35 36 H 05/05/22 02:00 98.2 F 101 H 15 110/67 82 L Intake and Output 05/04/22 05/05/22 05/05/22 22:59 06:59 14:59 Output Total 1 800 Balance -1 -800 Output: Urine 800 Urine/Stool Mix 1 Other: Voiding Method External Catheter External Catheter External Catheter # Bowel Movements 1 Weight 102 kg GENERAL DESCRIPTION: 76-year-old white male, looks frail, weak, chronically ill. Not in any distress. HEENT: Pale, nonicteric, no neck masses dry mucous membranes. NECK: No neck masses no JVD no stridor. LUNGS: Diminished breath sounds at the bases, minimal crackles at the right left base, no rhonchi and no wheezes HEART: Distant S1 and S2, no S3 gallop. ABDOMEN: Soft, no tenderness , guarding or rigidity, no organomegaly, PEG tube is noted. EXTREMITIES: Right heel wound dressing is noted otherwise unremarkable. SKIN: No rash, as noted above under extremities.. NEUROLOGICAL: Patient is alert awake, oriented 3, however he is chronically weak. Results - Laboratory Findings CBC and BMP: 05/05/22 07:20 05/05/22 07:20 Abnormal lab findings: Abnormal Labs 04/24/22 04/24/22 04/24/22 17:05 17:05 17:05 WBC RBC 3.59 L Hgb 12.0 L Hct 35.8 L MCV MCH MCHC Immature Gran # Neutrophils # 8.6 H Lymphocytes # 0.8 L Monocytes # Eosinophils # ESR Sodium 130 L Anion Gap BUN/Creatinine Ratio Glucose 120 H POC Glucose (mg/dL) Osmolality Calcium Iron Ferritin Conjugated Bilirubin AST ALT Alkaline Phosphatase C-Reactive Protein Total Protein 5.1 L Albumin 2.7 L Albumin/Globulin Ratio HDL Cholesterol 38.90 L Vitamin B12 04/25/22 04/25/22 04/25/22 08:26 08:26 08:26 WBC RBC 3.38 L Hgb 11.2 L Hct 34.1 L MCV 100.9 H MCH 33.1 H MCHC Immature Gran # Neutrophils # Lymphocytes # 0.84 L Monocytes # Eosinophils # ESR Sodium 132 L Anion Gap BUN/Creatinine Ratio Glucose POC Glucose (mg/dL) Osmolality Calcium Iron Ferritin Conjugated Bilirubin AST ALT Alkaline Phosphatase C-Reactive Protein Total Protein Albumin Albumin/Globulin Ratio HDL Cholesterol Vitamin B12 1603.0 H 04/27/22 04/27/22 04/29/22 09:01 09:01 05:56 WBC RBC 3.60 L Hgb 12.3 L Hct 35.3 L MCV MCH MCHC Immature Gran # Neutrophils # Lymphocytes # 0.4 L Monocytes # Eosinophils # ESR Sodium 128 L 130 L Anion Gap BUN/Creatinine Ratio Glucose POC Glucose (mg/dL) Osmolality 273 L Calcium 8.1 L 7.9 L Iron Ferritin Conjugated Bilirubin AST ALT Alkaline Phosphatase C-Reactive Protein Total Protein Albumin Albumin/Globulin Ratio HDL Cholesterol Vitamin B12 04/30/22 05/03/22 05/03/22 06:46 05:13 05:13 WBC 10.75 H RBC 3.52 L Hgb 11.6 L Hct 35.7 L MCV 101.4 H MCH 33.0 H MCHC Immature Gran # Neutrophils # 9.10 H Lymphocytes # 0.58 L Monocytes # Eosinophils # ESR Sodium 134 L 133 L Anion Gap 7.50 L 5.10 L BUN/Creatinine Ratio 23.71 H Glucose 118 H POC Glucose (mg/dL) Osmolality Calcium 8.1 L 8.1 L Iron Ferritin Conjugated Bilirubin <0.20 L AST 59 H ALT 86 H Alkaline Phosphatase 132 H C-Reactive Protein Total Protein 4.2 L Albumin 2.2 L Albumin/Globulin Ratio 1.10 L HDL Cholesterol Vitamin B12 05/03/22 05/03/22 05/04/22 15:09 15:09 07:04 WBC 10.59 H RBC 3.18 L Hgb 10.4 L Hct 32.9 L MCV 103.5 H MCH 32.7 H MCHC 31.6 L Immature Gran # 0.05 H Neutrophils # 8.47 H Lymphocytes # 0.83 L Monocytes # 1.10 H Eosinophils # ESR 35 H Sodium Anion Gap BUN/Creatinine Ratio Glucose POC Glucose (mg/dL) Osmolality Calcium Iron Ferritin Conjugated Bilirubin AST ALT Alkaline Phosphatase C-Reactive Protein 6.8 H Total Protein Albumin Albumin/Globulin Ratio HDL Cholesterol Vitamin B12 05/04/22 05/05/22 05/05/22 07:04 07:20 07:20 WBC 27.85 H RBC 3.77 L Hgb 12.2 L Hct 37.3 L MCV 98.9 H MCH 32.4 H MCHC Immature Gran # 0.19 H Neutrophils # 25.74 H Lymphocytes # 0.23 L Monocytes # 1.66 H Eosinophils # 0 L ESR Sodium 129 L Anion Gap 9.10 L BUN/Creatinine Ratio 27.02 H Glucose 120 H POC Glucose (mg/dL) Osmolality Calcium 8.2 L Iron 24 L Ferritin 560.0 H Conjugated Bilirubin AST ALT Alkaline Phosphatase C-Reactive Protein Total Protein Albumin Albumin/Globulin Ratio HDL Cholesterol Vitamin B12 2177.0 H 05/05/22 11:27 WBC RBC Hgb Hct MCV MCH MCHC Immature Gran # Neutrophils # Lymphocytes # Monocytes # Eosinophils # ESR Sodium Anion Gap BUN/Creatinine Ratio Glucose POC Glucose (mg/dL) 125 H Osmolality Calcium Iron Ferritin Conjugated Bilirubin AST ALT Alkaline Phosphatase C-Reactive Protein Total Protein Albumin Albumin/Globulin Ratio HDL Cholesterol Vitamin B12 - Diagnostic Findings Chest x-ray: image reviewed (As noted in HPI) Assessment and Plan Assessment: Impression: Possible aspiration pneumonia , nonetheless the patient is asymptomatic, and he is already empirically on antibiotics for his MRSA infection, that will be appropriate for his aspiration pneumonia. Possible ileus, being addressed by general surgery on the case. History of adenocarcinoma of the prostate. Superficial venous thrombosis, right cephalic vein from level of mid bicep and upper forearm, being addressed by vascular surgery on the case, no evidence of DVT Benign essential hypertension Chronic weakness and failure to thrive Status post debridement of heel for MRSA infection Dysphagia secondary to CVA and history of PEG tube placement Recommendation: Agree with the present supportive care measures Continue vancomycin PEG tube to be placed on suction Aspiration precautions Not much to be added from my perspective at this point. Continue to monitor O2 saturation and titrate oxygen accordingly We will continue to follow
[2022-05-05] MEDS: CYANOCOBALAMIN 500 MCG TAB PO SCH (16:24)
[2022-05-05] MEDS: CHOLECALCIFEROL 25 MCG (1000 IU) TABLET PO SCH (16:24)
[2022-05-05] MEDS: RIVAROXABAN 20 MG TAB PO SCH (16:24)
[2022-05-05 16:27] LABS: Glucose,Whole Blood 122 mg/dL (70-110)
[2022-05-05] MEDS: SODIUM CHLORIDE 0.9% 1,000 ML IV SCH (16:30)
[2022-05-05] MEDS: ATORVASTATIN 80 MG TAB PO SCH (21:33)
[2022-05-05] MEDS: MIRTAZAPINE 15 MG TAB PO SCH (21:33)
[2022-05-05] MEDS: MELATONIN 3 MG TABLET PO SCH (21:33)
--- NOTE | 2022-05-05 22:55 | P.PN ---
Subjective Progress Note Date: 04/30/22 Patient was seen for a follow-up. Patient states he he feels queasy in stomach. Patient had undergone PEG placement today. States he feels "tired". Denies dizziness or headache. Denies any new neurological symptoms. Continues to have right leg weakness. Objective - Vital Signs Vital signs: Vital Signs Temp 98.3 F 04/30/22 07:58 Pulse 68 04/30/22 07:58 Resp 17 04/30/22 07:58 BP 150/73 04/30/22 07:58 Pulse Ox 97 04/30/22 15:59 FiO2 Intake & Output 04/29/22 04/30/22 04/30/22 18:59 06:59 18:59 Output Total 850 Balance -850 Weight 88.451 kg 88.451 kg Output: Urine 850 Other: Voiding Method Urinal # Voids 4 # Bowel Movements 1 - Exam Patient is alert and awake. Speech and language functions are normal. He spe aks with a very low husky voice, which is chronic since his previous CVA. Cranial nerves are normal. Patient has right pronation, no drift. Patient's strength is (right/left) deltoid 4/5, biceps 5-/5, triceps 5-/5, broiler chef or cook 5-/5. Hip flexion right side not checked, left 4+, ankle dorsiflexion 4/5. Sensory touch is equal with no neglect. Cerebellar functions revealed ataxia for [id number] testing on the right. Patient's abdomen is soft, nontender. No guarding. No organomegaly. - Labs CBC & Chem 7: 05/05/22 07:20 05/05/22 07:20 Labs: Abnormal Lab Results - Last 24 Hours (Table) 04/30/22 Range/Units 06:46 Sodium 134 L (135-145) mmol/L Anion Gap 7.50 L (10.00-18.00) mmol/L Calcium 8.1 L (8.7-10.3) mg/dL Assessment and Plan Assessment: * Acute, subacute strokes, multiple involving bilateral hemispheric region, likely cardioembolic. Patient has mild to moderate right hemiparesis. * Dysphagia, possible from CVA, rule out esophageal dysmotility/neoplastic cause. No clinical evidence of Parkinson's disease. No clinical evidence of motor neuron disease/ALS. 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 * Atrial fibrillation, on anticoagulation with Xarelto. * Hypertension * Hyperlipidemia * History of prostate cancer. Plan: * MRI of the brain with and without contrast revealed multiple subcentimeter areas of abnormal signal seen on diffusion imaging compatible with acute ischemia seen scattered throughout the white matter bilaterally. There is a focus of subcentimeter enhancement corresponding to an area of diffusion restriction within the right parietal white matter too small to characterize. May represent an area of subacute ischemia. There is an area of abnormal signal enhancement involving the left frontal parietal calvarium measuring 1.6 cm. Corresponds to possible lucent area by computed tomography scan. Metastasis or multiple myeloma within the differential diagnosis. Correlate clinically. Internal medicine to address to rule out ?metastatic diseas e/myeloma. Discussed with Dr. Iniguez. * Appreciate cardiology input. Recommending patient to be on Xarelto 20 mg daily. Dose increased from 15 mg daily. Cardiology does not believe MANISHA is indicated. They just want to increase dose of Xarelto to 20 mg. * Patient underwent EGD and PEG tube placement and apparently did not reveal any esophageal stricture. No pathology. PEG tube was inserted. * CTA of head and neck from 04/19/2022 shows no evidence of dissection of the cervical internal carotid arteries or vertebral arteries or any evidence of significant stenosis in the carotid bifurcations. No evidence of intracranial high-grade stenosis or intracranial aneurysm. * 2-D echo from 03/26/2022 shows mild LVH with EF of 55%. Left atrial size is mildly increase in diameter. * Hemoglobin A1c 5.0, B12 1603, folic acid 5.0, fasting lipid panel cholesterol 92, LDL 43, HDL 38 and triglycerides 45, acetylcholine receptor antibodies and TSH pending. We will start folate replacement. * Continue Xarelto for stroke prevention related to atrial fibrillation, and aspirin 81 mg daily. * PT OT. * Neurology will follow sporadically.
--- NOTE | 2022-05-05 23:03 | P.PN ---
Subjective Progress Note Date: 05/01/22 Patient was seen for a follow-up. Patient states that he is feeling forgetful. He has difficulty talking. Patient had undergone PEG placement 04/30/2022. States he feels "tired". Denies dizziness or headache. Denies any new neurological symptoms. Continues to have right leg weakness. Objective - Vital Signs Vital signs: Vital Signs Temp 98.5 F 05/05/22 19:35 Pulse 79 05/05/22 19:35 Resp 17 05/05/22 19:35 BP 146/74 05/05/22 19:35 Pulse Ox 94 L 05/05/22 19:35 FiO2 Intake & Output 05/05/22 05/05/22 05/06/22 06:59 18:59 06:59 Output Total 1 800 Balance -1 -800 Weight 102 kg Output: Urine 800 Urine/Stool Mix 1 Other: Voiding Method External Catheter External Catheter External Catheter # Bowel Movements 1 - Exam Patient is alert and awake. Speech and language functions are normal. He speaks with a very low husky voice, which is chronic since his previous CVA. Cranial nerves are normal. Patient has right pronation, no drift. Patient's strength is (right/left) deltoid 4/5, biceps 5-/5, triceps 5-/5, hebrew teacher 5-/5. Hip flexion right side not checked, left 4+, ankle dorsiflexion 4/5. Sensory touch is equal with no neglect. Cerebellar functions revealed ataxia for [id number] testing on the right. Patient's abdomen is soft, nontender. No guarding. No organomegaly. - Labs CBC & Chem 7: 05/05/22 07:20 05/05/22 07:20 Labs: Abnormal Lab Results - Last 24 Hours (Table) 05/05/22 05/05/22 05/05/22 Range/Units 07:20 07:20 11:27 WBC 27.85 H (4.50-10.00) X 10*3/uL RBC 3.77 L (4.40-5.60) X 10*6/uL Hgb 12.2 L (13.0-17.0) g/dL Hct 37.3 L (39.6-50.0) % MCV 98.9 H (80.0-97.0) fL MCH 32.4 H (27.0-32.0) pg Immature Gran # 0.19 H (0.00-0.04) X 10*3/uL Neutrophils # 25.74 H (1.80-7.70) X 10*3/uL Lymphocytes # 0.23 L (0.90-5.00) X 10*3/uL Monocytes # 1.66 H (0.20-1.00) X 10*3/uL Eosinophils # 0 L (0.04-0.35) X 10*3/uL Sodium 129 L (135-145) mmol/L Anion Gap 9.10 L (10.00-18.00) mmol/L BUN/Creatinine Ratio 27.02 H (12.00-20.00) Ratio Glucose 120 H (70-110) mg/dL POC Glucose (mg/dL) 125 H (70-110) mg/dL Calcium 8.2 L (8.7-10.3) mg/dL 05/05/22 Range/Units 16:26 WBC (4.50-10.00) X 10*3/uL RBC (4.40-5.60) X 10*6/uL Hgb (13.0-17.0) g/dL Hct (39.6-50.0) % MCV (80.0-97.0) fL MCH (27.0-32.0) pg Immature Gran # (0.00-0.04) X 10*3/uL Neutrophils # (1.80-7.70) X 10*3/uL Lymphocytes # (0.90-5.00) X 10*3/uL Monocytes # (0.20-1.00) X 10*3/uL Eosinophils # (0.04-0.35) X 10*3/uL Sodium (135-145) mmol/L Anion Gap (10.00-18.00) mmol/L BUN/Creatinine Ratio (12.00-20.00) Ratio Glucose (70-110) mg/dL POC Glucose (mg/dL) 122 H (70-110) mg/dL Calcium (8.7-10.3) mg/dL Microbiology - Last 24 Hours (Table) 05/03/22 15:09 Blood Culture - Preliminary Blood No Growth after 48 hours Assessment and Plan Assessment: * Acute, subacute strokes, multiple involving bilateral hemispheric region, likely cardioembolic. Patient has mild to moderate right hemiparesis. * Dysphagia, possible from CVA, rule out esophageal dysmotility/neoplastic cause. No clinical evidence of Parkinson's disease. No clinical evidence of motor neuron disease/ALS. * Status post PEG placement 04/30/2022. 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 * Atrial fibrillation, on anticoagulation with Xarelto. * Hypertension * Hyperlipidemia * History of prostate cancer. Plan: * MRI of the brain with and without contrast revealed multiple subcentimeter areas of abnormal signal seen on diffusion imaging compatible with acute ischemia seen scattered throughout the white matter bilaterally. There is a focus of subcentimeter enhancement corresponding to an area of diffusion restriction within the right parietal white matter too small to characterize. May represent an area of subacute ischemia. There is an area of abnormal signal enhancement involving the left frontal parietal calvarium measuring 1.6 cm. Corresponds to possible lucent area by computed tomography scan. Metastasis or multiple myeloma within the differential diagnosis. Correlate clinically. Internal medicine to address to rule out ?metastatic disease/myeloma. Discussed with Dr. Iniguez. * Appreciate cardiology input. Patient now started on Xarelto 20 mg daily. Dose increased from 15 mg daily. Cardiology does not believe MANISHA is indicated. They just want to increase dose of Xarelto to 20 mg. * Patient underwent EGD and PEG tube placement and apparently did not reveal any esophageal stricture. No pathology. PEG tube was inserted. * CTA of head and neck from 04/19/2022 shows no evidence of dissection of the cervical internal carotid arteries or vertebral arteries or any evidence of significant stenosis in the carotid bifurcations. No evidence of intracranial high-grade stenosis or intracranial aneurysm. * 2-D echo from 03/26/2022 shows mild LVH with EF of 55%. Left atrial size is mildly increase in diameter. * Hemoglobin A1c 5.0, B12 1603, folic acid 5.0, fasting lipid panel cholesterol 92, LDL 43, HDL 38 and triglycerides 45, acetylcholine receptor antibodies and TSH pending. We will start folate replacement. * Continue Xarelto for stroke prevention related to atrial fibrillation, and aspirin 81 mg daily. * PT OT. * Discussed with case finisher. Patient probably will go to [facility] the [facility] when cleared.
--- NOTE | 2022-05-05 23:10 | P.PN ---
Subjective Progress Note Date: 05/05/22 Patient was seen for a follow-up. Patient is laying comfortably in the bed. Patient denies any numbness tingling or any new weakness. Patient had undergone PEG placement 04/30/2022. Denies dizziness or headache. Denies any new neurological symptoms. Objective - Vital Signs Vital signs: Vital Signs Temp 98.5 F 05/05/22 19:35 Pulse 79 05/05/22 19:35 Resp 17 05/05/22 19:35 BP 146/74 05/05/22 19:35 Pulse Ox 94 L 05/05/22 19:35 FiO2 Intake & Output 05/05/22 05/05/22 05/06/22 06:59 18:59 06:59 Output Total 1 800 Balance -1 -800 Weight 102 kg Output: Urine 800 Urine/Stool Mix 1 Other: Voiding Method External Catheter External Catheter External Catheter # Bowel Movements 1 - Exam Patient is alert and awake. Speech and language functions are normal. He speaks with a very low husky voice, which is chronic since his previous CVA. Cranial nerves are normal. Patient has right pronation, no drift. Patient's strength is (right/left) deltoid 3+/5, biceps 4/5, triceps 4+/5, cotton jammer 5-/5. Hip flexion right side not checked, left 4+, ankle dorsiflexion 4/5. Sensory touch is equal with no neglect. Cerebellar functions revealed ataxia for [id number] testing on the right. Patient's abdomen is soft, nontender. No guarding. No organomegaly. - Labs CBC & Chem 7: 05/05/22 07:20 05/05/22 07:20 Labs: Abnormal Lab Results - Last 24 Hours (Table) 05/05/22 05/05/22 05/05/22 Range/Units 07:20 07:20 11:27 WBC 27.85 H (4.50-10.00) X 10*3/uL RBC 3.77 L (4.40-5.60) X 10*6/uL Hgb 12.2 L (13.0-17.0) g/dL Hct 37.3 L (39.6-50.0) % MCV 98.9 H (80.0-97.0) fL MCH 32.4 H (27.0-32.0) pg Immature Gran # 0.19 H (0.00-0.04) X 10*3/uL Neutrophils # 25.74 H (1.80-7.70) X 10*3/uL Lymphocytes # 0.23 L (0.90-5.00) X 10*3/uL Monocytes # 1.66 H (0.20-1.00) X 10*3/uL Eosinophils # 0 L (0.04-0.35) X 10*3/uL Sodium 129 L (135-145) mmol/L Anion Gap 9.10 L (10.00-18.00) mmol/L BUN/Creatinine Ratio 27.02 H (12.00-20.00) Ratio Glucose 120 H (70-110) mg/dL POC Glucose (mg/dL) 125 H (70-110) mg/dL Calcium 8.2 L (8.7-10.3) mg/dL 05/05/22 Range/Units 16:26 WBC (4.50-10.00) X 10*3/uL RBC (4.40-5.60) X 10*6/uL Hgb (13.0-17.0) g/dL Hct (39.6-50.0) % MCV (80.0-97.0) fL MCH (27.0-32.0) pg Immature Gran # (0.00-0.04) X 10*3/uL Neutrophils # (1.80-7.70) X 10*3/uL Lymphocytes # (0.90-5.00) X 10*3/uL Monocytes # (0.20-1.00) X 10*3/uL Eosinophils # (0.04-0.35) X 10*3/uL Sodium (135-145) mmol/L Anion Gap (10.00-18.00) mmol/L BUN/Creatinine Ratio (12.00-20.00) Ratio Glucose (70-110) mg/dL POC Glucose (mg/dL) 122 H (70-110) mg/dL Calcium (8.7-10.3) mg/dL Microbiology - Last 24 Hours (Table) 05/03/22 15:09 Blood Culture - Preliminary Blood No Growth after 48 hours Assessment and Plan Assessment: * Acute, subacute strokes, multiple involving bilateral hemispheric region, likely cardioembolic. Patient has mild to moderate right hemiparesis. * Dysphagia, possible from CVA, rule out esophageal dysmotility/neoplastic cause. No clinical evidence of Parkinson's disease. No clinical evidence of motor neuron disease/ALS. * Status post PEG placement 04/30/2022. * Left frontoparietal enhancement in the scalp region, and oncology following. * Newly diagnosed pneumonia, pulmonary following. 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 * Atrial fibrillation, on anticoagulation with Xarelto. * Hypertension * Hyperlipidemia * Superficial venous thrombosis right upper extremity despite being on Xarelto. * History of adenocarcinoma of prostate. * Status post debridement of heel for MRSA infection Plan: * MRI of the brain with and without contrast revealed multiple subcentimeter areas of abnormal signal seen on diffusion imaging compatible with acute ischemia seen scattered throughout the white matter bilaterally. There is a focus of subcentimeter enhancement corresponding to an area of diffusion restriction within the right parietal white matter too small to characterize. May represent an area of subacute ischemia. There is an area of abnormal signal enhancement involving the left frontal parietal calvarium measuring 1.6 cm. Corresponds to possible lucent area by computed tomography scan. Metast asis or multiple myeloma within the differential diagnosis. Correlate clinically. Internal medicine to address to rule out ?metastatic disease/myeloma. Discussed with Dr. Iniguez. * Appreciate cardiology input. Patient now started on Xarelto 20 mg daily. Dos e increased from 15 mg daily. Cardiology does not believe MANISHA is indicated. They just want to increase dose of Xarelto to 20 mg. * Patient underwent EGD and PEG tube placement and apparently did not reveal any esophageal stricture. No pathology. PEG tube was inserted. * CTA of head and neck from 04/19/2022 shows no evidence of dissection of the cervical internal carotid arteries or vertebral arteries or any evidence of significant stenosis in the carotid bifurcations. No evidence of intracranial high-grade stenosis or intracranial aneurysm. * 2-D echo from 03/26/2022 shows mild LVH with EF of 55%. Left atrial size is mildly increase in diameter. * Hemoglobin A1c 5.0, B12 1603, folic acid 5.0, fasting lipid panel cholesterol 92, LDL 43, HDL 38 and triglycerides 45, acetylcholine receptor antibodies and TSH pending. We will start folate replacement. * Continue Xarelto for stroke prevention related to atrial fibrillation, and aspirin 81 mg daily. * PT OT. * Patient is stable and from neurology standpoint. Neurology will sign off. Please reconsult neurology if any concerns. (Dr. Herrera starting neurology service in a.m.)
--- NOTE | 2022-05-05 23:20 | P.PN ---
Subjective Progress Note Date: 05/05/22 Principal diagnosis: Right heel infected pressure ulcer Patient is a 76 year old male with multiple comorbidities [facility] resident noticed to have a worsening pressure ulcer to the right heel status post debridement culture positive for MRSA. On today's evaluation that is 05/05/2022, the patient remains to be afebrile, the patient is breathing comfortably on her medical oxygen, the patient denies any chest pain shortness of cough no nausea no vomiting. The patient pain to the right heel is currently controlled Objective - Vital Signs Vital signs: Vital Signs Temp 98.1 F 05/05/22 11:30 Pulse 107 H 05/05/22 06:45 Resp 20 05/05/22 06:45 BP 170/91 05/05/22 06:45 Pulse Ox 90 L 05/05/22 06:45 FiO2 Intake & Output 05/04/22 05/05/22 05/05/22 18:59 06:59 18:59 Intake Total 10 Output Total 1 800 Balance 10 -1 -800 Weight 100 kg 102 kg Intake: IV 10 Invasive Line 3 10 Output: Urine 800 Urine/Stool Mix 1 Other: Voiding Method External Catheter External Catheter External Catheter # Bowel Movements 1 - Exam GENERAL DESCRIPTION: An elderly male lying in bed in no distress RESPIRATORY SYSTEM: Unlabored breathing , decreased breath sounds at bases HEART: S1 S2 regular rate and rhythm , ABDOMEN: Soft , no tenderness EXTREMITIES: Right he is currently dressed no drainage on the dressing - Labs CBC & Chem 7: 05/05/22 07:20 05/05/22 07:20 Labs: Abnormal Lab Results - Last 24 Hours (Table) 05/05/22 05/05/22 05/05/22 Range/Units 07:20 07:20 11:27 WBC 27.85 H (4.50-10.00) X 10*3/uL RBC 3.77 L (4.40-5.60) X 10*6/uL Hgb 12.2 L (13.0-17.0) g/dL Hct 37.3 L (39.6-50.0) % MCV 98.9 H (80.0-97.0) fL MCH 32.4 H (27.0-32.0) pg Immature Gran # 0.19 H (0.00-0.04) X 10*3/uL Neutrophils # 25.74 H (1.80-7.70) X 10*3/uL Lymphocytes # 0.23 L (0.90-5.00) X 10*3/uL Monocytes # 1.66 H (0.20-1.00) X 10*3/uL Eosinophils # 0 L (0.04-0.35) X 10*3/uL Sodium 129 L (135-145) mmol/L Anion Gap 9.10 L (10.00-18.00) mmol/L BUN/Creatinine Ratio 27.02 H (12.00-20.00) Ratio Glucose 120 H (70-110) mg/dL POC Glucose (mg/dL) 125 H (70-110) mg/dL Calcium 8.2 L (8.7-10.3) mg/dL Microbiology - Last 24 Hours (Table) 05/03/22 15:09 Blood Culture - Preliminary Blood No Growth after 24 hours 05/02/22 14:34 Anaerobic Culture - Preliminary Heel - Right 05/02/22 14:34 Gram Stain - Final Heel - Right Tissue Culture - Final Methicillin resist S. aureus Assessment and Plan (1) Open wound of right heel Current Visit: Yes Status: Acute Code(s): S91.301A - UNSPECIFIED OPEN WOUND, RIGHT FOOT, INITIAL ENCOUNTER SNOMED Code(s): 861159891 (2) MRSA (methicillin resistant staph aureus) culture positive Current Visit: Yes Status: Acute Code(s): Z22.322 - CARRIER OR SUSPECTED CARRIER OF METHICILLIN RESIS STAPH SNOMED Code(s): 806039262 Plan: 1patient with right heel infected pressure ulcer in this patient with status post surgical debridement did not mention any extension down to the bone however will be discussed further with the vascular surgery culture now showing presumptive MRSA patient did have a low-grade fever and mild elevated white co unt with a left shift. 2blood cultures are so far negative 3patient will continue with vancomycin pharmacy to dose target trough of 15 while watching kidney function and vancomycin trough closely, will need a PICC line for outpatient IV antibiotics 4patient noticed to have slight worsening of his white count but no fever chest x-ray was negative for any pneumonia we will check his UA repeat his inflammation markers with a.m. lab Time with Patient: Less than 30
[2022-05-06] MEDS: ACETAMINOPHEN IV (For NPO) 1,000 MG in EMPTY BAG 1 BAG IVPB PRN (01:54)
[2022-05-06] MEDS: VANCOMYCIN 1,500 MG in SODIUM CHLORIDE 0.9% 500 ML 500 ML IVPB SCH ×2 (04:28→17:08)
[2022-05-06 07:42] LABS: Protein, Total 3.9 g/dL (6.2-8.2)
[2022-05-06] MEDS: AMIODARONE 200 MG TAB PO SCH (09:28)
[2022-05-06] MEDS: TAMSULOSIN 0.4 MG CAP.ER.24H PO SCH (09:28)
[2022-05-06] MEDS: TROSPIUM CHLORIDE 20 MG TABLET PO SCH (09:29)
[2022-05-06] MEDS: PANTOPRAZOLE 40 MG/10 ML VIAL IVP SCH (09:29)
[2022-05-06] MEDS: AMOXIC-POT CLAV 875-125MG 1 EACH TAB PO SCH ×2 (09:29→22:12)
[2022-05-06 10:04] LABS: Basophils % (A) 0 %; Eosinophils # (A) 0.2 k/uL (0-0.7); Eosinophils % (A) 1 %; HCT 34.5 % (39.0-53.0); HGB 11.3 gm/dL (13.0-17.5); Lymphocytes # (A) 0.5 k/uL (1.0-4.8); Lymphocytes % (A) 3 %; MCH 32.7 pg (25.0-35.0); MCHC 32.8 g/dL (31.0-37.0); MCV 99.7 fL (80.0-100.0); Mean Platelet Volume 8.2; Monocytes # (A) 1.1 k/uL (0-1.0); Monocytes % (A) 6 %; Neutrophils # (A) 16.5 k/uL (1.3-7.7); Neutrophils % (A) 89 %; Platelet Count 304 k/uL (150-450); RBC 3.46 m/uL (4.30-5.90); RDW 13.7 % (11.5-15.5); WBC 18.6 k/uL (3.8-10.6)
[2022-05-06 10:50] LABS: Albumin 1.69 g/dL (3.80-4.90); Gamma Globulin 0.67 g/dL (0.70-1.50)
--- NOTE | 2022-05-06 12:03 | NM ---
EXAMINATION TYPE: NM bone scan whole body DATE OF EXAM: 05/06/2022 COMPARISON: MRI 04/26/2022 of the brain, CT 04/19/2022 CT scan brain 03/22/2014 HISTORY: Abnormal bone lesion Delayed whole-body scanning was performed following the injection of 23.1 mCi Tc 99m MDP. Images acq uired 3 hours post injection. FINDINGS: There is no abnormal increased uptake along the calvarium corresponding to the bone lesion. Soft tissue uptake is seen which represents soft tissue contamination. Faint abnormal uptake seen thr oughout the thoracic spine and lower cervical spine likely degenerative. Photopenic defect with a are a of increased uptake surrounding the suspected hip prostheses likely postsurgical. IMPRESSION: 1. There are no suspicious sizable areas of reduced or increased uptake to suggest metastasis or tee esponding to the lesion seen by prior imaging. 2. Multiple prior exams have been reviewed including the CT scan of 03/22/2014 where there appeared t o be a smaller calvarial lesion which is now increased in size. However, given the lack of reduced or increased uptake by bone scan and the fact the lesion was present 8 years ago (despite interval incr ease in size) suggests this could be benign. Correlate clinically to exclude a history of multiple my eloma\plasmacytoma which also demonstrates a propensity to be bone scan negative.
--- NOTE | 2022-05-06 12:23 | P.PN ---
Subjective Progress Note Date: 05/06/22 CHIEF COMPLAINT: Dysphagia HISTORY OF PRESENT ILLNESS: Patient is status post PEG tube placement 04/30/22. Over the weekend patient had decreased oxygen saturation and concerns for possible aspiration of tube feeds. Per nurse patient had been coughing up tube feeds. tube feeds Placed on hold. Abdominal x-ray did show evidence of ileus. Patient denies any abdominal pain. Denies any nausea vomiting. He is having flatus. Last bowel movement 2 days ago. Patient did have a low-grade temp of 100.6 earlier this morning. Currently on 4 L satting at 91% WBC is down from 27.85 8.6 HDL of 1.3 platelets 304 sodium 129 potassium is 4.1 creatinine 0.7 PHYSICAL EXAM: VITAL SIGNS: Reviewed. GENERAL: Well-developed in no acute distress. ABDOMEN: Soft. Nondistended. Nontender. PEG tube site clean dry and intact NEUROLOGIC: Alert and oriented. Cranial nerves II through XII grossly intact. ASSESSMENT: 1. Dysphagia 2. Severe protein calorie malnutrition 3. History of CVA 4. Possible aspiration pneumonia PLAN: -Further recommendations forthcoming regarding restarting tube feeds per surgeon -Continue supportive care Physician Remedial [place] note has been reviewed by physician. Signing provider agrees with the documented findings, assessment, and plan of care. I have personally seen and examined the patient, reviewed the LEATHER SCRAPER /PAs history, exam and MDM and agree with the assessment and plan as written. Based on total visit time, I have performed more than 50% of the visit. As above: Patient seems to be doing better. He had an episode of aspiration over the weekend. His abdominal exam is benign. PEG tube is in good condition. No tenderness. Resume tube feeds at 20 mL per hour for now. Objective - Vital Signs Vital signs: Vital Signs Temp 99.6 F 05/06/22 07:59 Pulse 72 05/06/22 07:59 Resp 20 05/06/22 07:59 BP 120/69 05/06/22 07:59 Pulse Ox 91 L 05/06/22 07:59 FiO2 Intake & Output 05/05/22 05/06/22 05/06/22 18:59 06:59 18:59 Output Total 800 650 Balance -800 -650 Weight 98.5 kg Output: Urine 800 650 Other: Voiding Method External Catheter External Catheter External Catheter - Labs CBC & Chem 7: 05/06/22 08:52 05/06/22 08:52 Labs: Abnormal Lab Results - Last 24 Hours (Table) 05/04/22 05/05/22 05/05/22 Range/Units 07:04 07:20 16:26 WBC (3.8-10.6) k/uL RBC (4.30-5.90) m/uL Hgb (13.0-17.5) gm/dL Hct (39.0-53.0) % Immature Gran # 0.19 H (0.00-0.04) X 10*3/uL Neutrophils # 25.74 H (1.80-7.70) X 10*3/uL Lymphocytes # 0.23 L (0.90-5.00) X 10*3/uL Monocytes # 1.66 H (0.20-1.00) X 10*3/uL Eosinophils # 0 L (0.04-0.35) X 10*3/uL POC Glucose (mg/dL) 122 H (70-110) mg/dL Total Protein (PEP) 3.9 L (6.2-8.2) g/dL Albumin (PEP) 1.69 L (3.80-4.90) g/dL Beta Globulins 0.50 L (0.60-1.30) g/dL Gamma Globulins 0.67 L (0.70-1.50) g/dL 05/06/22 Range/Units 08:52 WBC 18.6 H (3.8-10.6) k/uL RBC 3.46 L (4.30-5.90) m/uL Hgb 11.3 L (13.0-17.5) gm/dL Hct 34.5 L (39.0-53.0) % Immature Gran # (0.00-0.04) X 10*3/uL Neutrophils # 16.5 H (1.80-7.70) X 10*3/uL Lymphocytes # 0.5 L (0.90-5.00) X 10*3/uL Monocytes # 1.1 H (0.20-1.00) X 10*3/uL Eosinophils # (0.04-0.35) X 10*3/uL POC Glucose (mg/dL) (70-110) mg/dL Total Protein (PEP) (6.2-8.2) g/dL Albumin (PEP) (3.80-4.90) g/dL Beta Globulins (0.60-1.30) g/dL Gamma Globulins (0.70-1.50) g/dL Microbiology - Last 24 Hours (Table) 05/05/22 08:22 Blood Culture - Preliminary Blood No Growth after 24 hours 05/05/22 08:18 Blood Culture - Preliminary Blood No Growth after 24 hours 05/03/22 15:09 Blood Culture - Preliminary Blood No Growth after 48 hours
[2022-05-06] MEDS: ASPIRIN 81 MG PO SCH (13:06)
[2022-05-06] MEDS: COLLAGENASE 250 UNIT/GM OINTMENT 30 GM TUBE TOPICAL SCH (13:23)
[2022-05-06] MEDS: SODIUM CHLORIDE 0.9% 1,000 ML IV SCH (13:23)
--- NOTE | 2022-05-06 13:28 | P.PN ---
Subjective Progress Note Date: 05/06/22 Progress not Date of service 05/06/[address] Iniguez Patient seen and evaluated [id number] at bedside and discussed with her the progress and the adherence as well during the weekends. Patient no further vomiting and he is nothing by mouth, stated that he passed gas since and his bowel sound is present, my advice to start slow 30 mL an hour with watching for any nausea and vomiting and subsequently increased by 10 mL after 2-3 days until it reached the maximum 64 mL an hour. I did advise the nurse taking care of him that the the Augmentin should be through the PEG tube not orally. As well as he needs to be in same is sitting position for any pleasurable tray. Vital signs today temperature 99.6 F oral, pulse 72 bpm regular with the underlying underlying history of paroxysmal atrial fibrillation. Respiratory rate 20 per minute nonlabored comfortable. Blood pressure 120/69 with a mean blood pressure 86 stable is currently on oxygen nasal cannula 5 L with the pulse ox 91% with the underlying chest x-ray was reviewed by pulmonary and critical care Dr. Esquivel with the no evidence of aspiration however when the event of vomiting with the reactive leukocytosis and elevated temperature. Patient on vancomycin as well as Augmentin. Dr. Crain plan for PICC line on the left arm for prolonged infusion of vancomycin with the presence of MRSA in the debridement of the right heel. Nursing staff will check with Dr. Parham in regard of the feeding the start. And he will see the patient today On the physical exam: Patient awake alert conscious and his at bedside and he still have the coughing and he will be evaluated by ENT as outpatient. Oropharynx he had natural teeth. Head was normocephalic and atraumatic has previous CT T and MRI of the brain which and the MRI indicating the presence of bilateral CVA acute in nature on the top of chronic also presence of left frontoparietal enhancement 1.6 cm, hematology oncology was consulted and he ordered several laboratories as well as bone scan for evaluation. Neck was supple no JVD no thyromegaly no lymphadenopathy trachea midline Chest clear with basilar rhonchi with the underlying atelectasis. Heart was regular sinus rhythm with a history of paroxysmal atrial fibrillation with normal ejection fraction Abdomen: Soft positive bowel sounds and he S gases flatus PEG tube in place and will be starting feeding tube hopefully today we will be checking with Dr. Parham. Extremities: The right elbow or toe of the lower arm and part of the upper forearm with the edema improved, erythema improved with the history superficial phlebitis and patient on Xarelto and vancomycin and Augmentin Right heel debridement found to be MRSA. Currently treated with vancomycin with the future plan with PICC line and prolonged treatment and plan for future transfer to the [facility] to continue that at the [facility]. Psychiatry: Stable Neurology: Bilateral hemispheric CVA acute on top of chronic with the probable showering from paroxysmal atrial fibrillation Enhancement 1.6 cm in the frontoparietal and patient today underwent a bone scan which indicating no suspicious to suggest metastasis and mentioned that the fact that the lesion was present 8 years ago with despite the interval and increasing in size and it could be benign. Hematology oncology working with that and he ordered also laboratories for the [facility] including multiple myeloma or plasmacytoma which did not have any history in the past. Assessment: #1 patient currently stable general condition and vital sign #2 no further vomiting or nausea and will be starting feeding tube again today #3 mild hypoxemia on oxygen 5 L #4 leukocytosis started to improve. As well as the temperature started to normalize. #5 hypertension currently controlled. #6 bone scan on the chart #7 atrial fibrillation paroxysmal currently normal sinus rhythm. #8 hyponatremia mild with the association of multiple showering of the brain. #Diabetes mellitus well-controlled Plan: #1 obtain CBC with differential tomorrow #2 BMP tomorrow #3 probable transfer to [facility] on the [facility] tomorrow if cleared by above consulting physicians. Objective - Vital Signs Vital signs: Vital Signs Temp 99.6 F 05/06/22 07:59 Pulse 72 05/06/22 07:59 Resp 20 05/06/22 07:59 BP 120/69 05/06/22 07:59 Pulse Ox 91 L 05/06/22 07:59 FiO2 Intake & Output 05/05/22 05/06/22 05/06/22 18:59 06:59 18:59 Output Total 800 650 Balance -800 -650 Weight 98.5 kg Output: Urine 800 650 Other: Voiding Method External Catheter External Catheter External Catheter - Labs CBC & Chem 7: 05/06/22 08:52 05/05/22 07:20 Labs: Abnormal Lab Results - Last 24 Hours (Table) 05/04/22 05/05/2222 Range/Units 07:04 16:26 08:52 WBC 18.6 H (3.8-10.6) k/uL RBC 3.46 L (4.30-5.90) m/uL Hgb 11.3 L (13.0-17.5) gm/dL Hct 34.5 L (39.0-53.0) % Neutrophils # 16.5 H (1.3-7.7) k/uL Lymphocytes # 0.5 L (1.0-4.8) k/uL Monocytes # 1.1 H (0-1.0) k/uL POC Glucose (mg/dL) 122 H (70-110) mg/dL Total Protein (PEP) 3.9 L (6.2-8.2) g/dL Albumin (PEP) 1.69 L (3.80-4.90) g/dL Beta Globulins 0.50 L (0.60-1.30) g/dL Gamma Globulins 0.67 L (0.70-1.50) g/dL Microbiology - Last 24 Hours (Table) 05/05/22 08:22 Blood Culture - Preliminary Blood No Growth after 24 hours 05/05/22 08:18 Blood Culture - Preliminary Blood No Growth after 24 hours 05/03/22 15:09 Blood Culture - Preliminary Blood No Growth after 48 hours
--- NOTE | 2022-05-06 15:21 | P.PN ---
Subjective Progress Note Date: 05/06/22 This is a 76-year-old white male admitted initially on 04/24/22, patient has been in the hospital now for just over 10 days. Patient was admitted mostly with weakness and failure to thrive, he had no active pulmonary symptoms whatsoever. P patient had multiple electrolyte dyscrasia, severe hyponatremia, he also had atient was seen by many consultants since admission including internal medicine, neurology, psychiatry, cardiology, general surgery, oncology, basically the patient is being evaluated for ileus, he had a PEG tube placed on 04/21 by general surgery, leukocytosis, patient also had worsening pressure ulcer to the right heel requiring debridement, and he had positive MRSA infection, this is being addressed by infectious disease on the case, and the patient is on vancomycin. At any rate the patient had a witnessed aspiration yesterday, apparently there was some issue with his PEG tube, patient aspirated and this was witnessed, hence this consult was initiated. Chest x-ray this morning showed mild interstitial density consistent most likely secondary to aspiration involving the right upper lobe and the left lower lobe. Nonetheless the patient is empirically covered with antibiotics, his feeding is presently on hold, and I recommended that his PEG tube gets placed on intermittent suction. Not much to be added from my perspective at this point. Patient is on 5 L nasal cannula and O2 sats 94%. He had a low-grade temp last night of 100.9 The patient is seen today 05/06/2022 in follow-up on the regular medical floor. He is currently resting comfortably in bed. Awake and alert in no acute distress. He is maintaining O2 saturations in the 90s on 4 L/m per nasal cannula. He does have a dry nonproductive cough. Patient was found to have MRSA on his right heel. He is currently in vancomycin and Augmentin. We're consulted for possible aspiration pneumonia. He did have a temperature 100.6. Currently 99 6. Bone scan revealed no areas of metastasis. The cultures reveal no growth. White count 18.6. Hemoglobin 11.3. Objective - Vital Signs Vital signs: Vital Signs Temp 99.6 F 05/06/22 07:59 Pulse 72 05/06/22 07:59 Resp 20 05/06/22 07:59 BP 120/69 05/06/22 07:59 Pulse Ox 91 L 05/06/22 07:59 FiO2 Intake & Output 05/05/22 05/06/22 05/06/22 18:59 06:59 18:59 Output Total 800 650 Balance -800 -650 Weight 98.5 kg Output: Urine 800 650 Other: Voiding Method External Catheter External Catheter External Catheter # Bowel Movements 1 - Exam GENERAL DESCRIPTION: 76-year-old male, frail, weak, chronically ill. On 4 L nasal cannula. Not in any distress. HEENT: Pale, nonicteric, no neck masses dry mucous membranes. NECK: No neck masses no JVD no stridor. LUNGS: Diminished breath sounds at the bases, minimal crackles at the right left base, no rhonchi and no wheezes HEART: Distant S1 and S2, no S3 gallop. ABDOMEN: Soft, no tenderness , guarding or rigidity, no organomegaly, PEG tube is noted. EXTREMITIES: Right heel wound dressing is noted otherwise unremarkable. SKIN: No rash, as noted above under extremities.. NEUROLOGICAL: Patient is alert awake, oriented 3, however he is chronically weak. - Labs CBC & Chem 7: 05/06/22 08:52 05/05/22 07:20 Labs: Abnormal Lab Results - Last 24 Hours (Table) 05/04/22 05/05/22 05/06/22 Range/Units 07:04 16:26 08:52 WBC 18.6 H (3.8-10.6) k/uL RBC 3.46 L (4.30-5.90) m/uL Hgb 11.3 L (13.0-17.5) gm/dL Hct 34.5 L (39.0-53.0) % Neutrophils # 16.5 H (1.3-7.7) k/uL Lymphocytes # 0.5 L (1.0-4.8) k/uL Monocytes # 1.1 H (0-1.0) k/uL POC Glucose (mg/dL) 122 H (70-110) mg/dL Total Protein (PEP) 3.9 L (6.2-8.2) g/dL Albumin (PEP) 1.69 L (3.80-4.90) g/dL Beta Globulins 0.50 L (0.60-1.30) g/dL Gamma Globulins 0.67 L (0.70-1.50) g/dL Microbiology - Last 24 Hours (Table) 05/02/22 14:34 Anaerobic Culture - Final Heel - Right 05/05/22 08:22 Blood Culture - Preliminary Blood No Growth after 24 hours 05/05/22 08:18 Blood Culture - Preliminary Blood No Growth after 24 hours 05/03/22 15:09 Blood Culture - Preliminary Blood No Growth after 48 hours Assessment and Plan Assessment: Possible aspiration pneumonia , nonetheless the patient is asymptomatic, and he is already empirically on antibiotics for his MRSA infection, that will be appropriate for his aspiration pneumonia. Possible ileus, being addressed by general surgery on the case. History of adenocarcinoma of the prostate. Superficial venous thrombosis, right cephalic vein from level of mid bicep and upper forearm, being addressed by vascular surgery on the case, no evidence of DVT Benign essential hypertension Chronic weakness and failure to thrive Status post debridement of heel for MRSA infection Dysphagia secondary to CVA and history of PEG tube placement Plan: The patient was seen and evaluated Labs and medications reviewed Currently stable and on 4 L nasal cannula Titrate the FiO2 as tolerated Antibiotics per ID services We will continue to follow I have personally seen and examined the patient, performed the documentation and the assessment and plan as written. Number of minutes spent on the visit: 10.
[2022-05-06 16:02] LABS: African American GFR (CKD) >90 (>60 ml/min/1.73 sqM); Anion Gap 3 mmol/L; Blood Urea Nitrogen 25 mg/dL (9-20); Calcium 8.1 mg/dL (8.4-10.2); Carbon Dioxide 24 mmol/L (22-30); Chloride 106 mmol/L (98-107); Glucose 75 mg/dL (74-99); Non-African American GFR(CKD) 82 (>60 ml/min/1.73 sqM); Potassium 4.2 mmol/L (3.5-5.1); Sodium 133 mmol/L (137-145)
[2022-05-06] MEDS: RIVAROXABAN 20 MG TAB PO SCH (17:01)
[2022-05-06] MEDS: CYANOCOBALAMIN 500 MCG TAB PO SCH (17:07)
[2022-05-06] MEDS: CHOLECALCIFEROL 25 MCG (1000 IU) TABLET PO SCH (17:07)
[2022-05-06] MEDS: guaiFENesin-DM 100-10MG/5ML 10 ML CUP PO PRN (20:20)
[2022-05-06] MEDS: MELATONIN 3 MG TABLET PO SCH (22:12)
[2022-05-06] MEDS: ATORVASTATIN 80 MG TAB PO SCH (22:12)
[2022-05-06] MEDS: MIRTAZAPINE 15 MG TAB PO SCH (22:12)
[2022-05-07] MEDS: VANCOMYCIN 1,500 MG in SODIUM CHLORIDE 0.9% 500 ML 500 ML IVPB SCH ×2 (04:02→15:02)
[2022-05-07 05:04] LABS: Methylmalonic Acid 0.11 umol/L (<0.40)
[2022-05-07] MEDS: SODIUM CHLORIDE 0.9% 1,000 ML IV SCH (06:15)
[2022-05-07 07:07] LABS: INR 1.1 (<1.2); Prothrombin Time 11.4 sec (9.0-12.0)
[2022-05-07] MEDS: TAMSULOSIN 0.4 MG CAP.ER.24H PO SCH (07:47)
[2022-05-07] MEDS: AMOXIC-POT CLAV 875-125MG 1 EACH TAB PO SCH ×2 (07:48→20:07)
[2022-05-07] MEDS: AMIODARONE 200 MG TAB PO SCH (07:48)
[2022-05-07] MEDS: TROSPIUM CHLORIDE 20 MG TABLET PO SCH (07:48)
[2022-05-07] MEDS: PANTOPRAZOLE 40 MG/10 ML VIAL IVP SCH (08:56)
[2022-05-07] MEDS: ONDANSETRON 4 MG/2 ML VIAL IVP PRN (08:56)
[2022-05-07 09:25] LABS: Basophils # (A) 0.02 X 10*3/uL (0.00-0.10); Basophils % (A) 0.1 %; Eosinophils # (A) 0.11 X 10*3/uL (0.04-0.35); Eosinophils % (A) 0.7 %; HCT 30.6 % (39.6-50.0); Immature Grans, Automated 0.6 %; Lymphocytes # (A) 0.54 X 10*3/uL (0.90-5.00); Lymphocytes % (A) 3.3 %; MCH 32.9 pg (27.0-32.0); MCHC 32.7 g/dL (32.0-37.0); MCV 100.7 fL (80.0-97.0); Mean Platelet Volume 9.5 fL (9.5-12.2); Monocytes # (A) 1.73 X 10*3/uL (0.20-1.00); Monocytes % (A) 10.6 %; NRBC Per 100 WBC 0 /100 WBCS (0.0-0.0); Neutrophils # (A) 13.77 X 10*3/uL (1.80-7.70); Neutrophils % (A) 84.7 %; Platelet Count 342 X 10*3/uL (140-440); RBC 3.04 X 10*6/uL (4.40-5.60); RDW 14.4 % (11.5-14.5); WBC 16.27 X 10*3/uL (4.50-10.00)
--- NOTE | 2022-05-07 10:45 | P.PN ---
Subjective Progress Note Date: 05/07/22 CHIEF COMPLAINT: Dysphagia HISTORY OF PRESENT ILLNESS: Patient is status post PEG tube placement 04/30/22. Concerns of possible aspiration of tube feeds over the weekend. Tube feeds over restarted yesterday at 20 mL per hour. This morning patient is complaining of nausea having dry heaves and feeling more bloated. He does complain of some lower abdominal discomfort. He is having flatus last bowel movement was yesterday. Residual tube feeds 2 mL. Afebrile. Elevated BP this morning. On 4 L at 91%. WBC is down from 18-16 hemoglobin is 10 PHYSICAL EXAM: VITAL SIGNS: Reviewed. GENERAL: Well-developed in no acute distress. ABDOMEN: Soft. Mildly distended. Tenderness to palpation lower abdomen. PEG tube site clean dry and intact NEUROLOGIC: Alert and oriented. Cranial nerves II through XII grossly intact. ASSESSMENT: 1. Dysphagia 2. Severe protein calorie malnutrition 3. History of CVA 4. Possible aspiration pneumonia PLAN: -Placed tube feedings on hold for now due to increased abdominal discomfort with nausea and dry -Continue supportive care -Continue antiemetics as needed -Continue IV fluids Physician Bobbin Cleaner note has been reviewed by physician. Signing provider agrees with the documented findings, assessment, and plan of care. I have personally seen and examined the patient, reviewed the HEATING SYSTEMS INSTALLER /PAs history, exam and MDM and agree with the assessment and plan as written. Based on total visit time, I have performed more than 50% of the visit. As above: patient was nauseated earlier today. Apparently was having some dry heaves. No pain currently. Tube feeds have been placed on hold. We'll check abdominal x-rays tomorrow. Objective - Vital Signs Vital signs: Vital Signs Temp 98.3 F 05/07/22 07:34 Pulse 74 05/07/22 07:34 Resp 16 05/07/22 07:34 BP 192/70 05/07/22 07:34 Pulse Ox 91 L 05/07/22 08:24 FiO2 Intake & Output 05/06/22 05/07/22 05/07/22 18:59 06:59 18:59 Intake Total 240 Balance 240 Weight 102 kg Intake: Tube Feeding 240 Other: Voiding Method External Catheter Diaper Incontinent # Bowel Movements 1 - Labs CBC & Chem 7: 05/07/22 06:22 05/06/22 08:52 Labs: Abnormal Lab Results - Last 24 Hours (Table) 05/04/22 05/06/22 05/07/22 Range/Units 07:04 08:52 06:22 WBC 16.27 H (4.50-10.00) X 10*3/uL RBC 3.04 L (4.40-5.60) X 10*6/uL Hgb 10.0 L (13.0-17.0) g/dL Hct 30.6 L (39.6-50.0) % MCV 100.7 H (80.0-97.0) fL MCH 32.9 H (27.0-32.0) pg Immature Gran # 0.10 H (0.00-0.04) X 10*3/uL Neutrophils # 13.77 H (1.80-7.70) X 10*3/uL Lymphocytes # 0.54 L (0.90-5.00) X 10*3/uL Monocytes # 1.73 H (0.20-1.00) X 10*3/uL Sodium 133 L (137-145) mmol/L BUN 25 H (9-20) mg/dL Calcium 8.1 L (8.4-10.2) mg/dL Albumin (PEP) 1.69 L (3.80-4.90) g/dL Beta Globulins 0.50 L (0.60-1.30) g/dL Gamma Globulins 0.67 L (0.70-1.50) g/dL Microbiology - Last 24 Hours (Table) 05/05/22 08:22 Blood Culture - Preliminary Blood No Growth after 48 hours 05/05/22 08:18 Blood Culture - Preliminary Blood No Growth after 48 hours 05/03/22 15:09 Blood Culture - Preliminary Blood No Growth after 72 hours 05/02/22 14:34 Anaerobic Culture - Final Heel - Right
--- NOTE | 2022-05-07 12:13 | XR ---
EXAMINATION TYPE: XR chest 1V portable DATE OF EXAM: 05/07/2022 COMPARISON: 05/05/2022 HISTORY: Aspiration TECHNIQUE: Single frontal view of the chest is obtained. FINDINGS: A left basilar infiltrate and right upper lobe patchy density stable. Underlying COPD and chronic interstitial lung disease is suspected with tiny bilateral effusions. Limited inspiration. He art size normal. No pneumothorax. IMPRESSION: Patchy left lower lobe and right upper lobe infiltrate with tiny effusions likely superi mposed on a background COPD.
[2022-05-07] MEDS: IPRATROPIUM-ALBUTEROL 3 ML NEB INHALATION SCH ×3 (12:39→20:34)
[2022-05-07] MEDS ORDERED: LIDOCAINE 1% INJ 10MG/ML (5 ML VIAL-PF) SQ ONE (13:33)
[2022-05-07] MEDS ORDERED: ENALAPRILAT 1.25 MG/ML 1 ML VIAL IVP PRN (14:09)
[2022-05-07 14:19] LABS: Free Kappa Lt Chain Qnt, Serum 4.14 mg/dL (0.33-1.94); Free Lambda Lt Chain Qnt, Seru 2.54 mg/dL (0.57-2.63)
--- NOTE | 2022-05-07 14:22 | IR ---
PICC LINE PLACEMENT: HISTORY: Infection requiring long-term antibiotic therapy PROCEDURE: Ultrasound and fluoroscopic guidance of PICC line placement. COMPLICATIONS: None ANESTHESIA: 1. 1% Lidocaine locally. FINDINGS/TECHNIQUE: The procedure was explained to the patient. The risks, complications, benefits and alternatives were discussed and any questions were answered. Informed consent was obtained. The patient was placed supine on the fluoroscopic table and prepped and draped in the usual sterile fash ion. Utilizing a 21 gauge needle and sonographic and fluoroscopic guidance, access in the left basi lic vein was achieved and there is placement of a 0.018 guidewire. The vein is patent. A 4-F sheath was placed over the guidewire. The guidewire and dilator were removed and a 4-F. PICC line was plac ed through the sheath with the tip at the level of the SVC. The sheath was removed, the catheter was flushed and sutured into position. The patient was stable throughout the procedure and remained sta ble upon discharge from the Department of Radiology. The vein puncture was patent under ultrasound. A camejo scale image was obtained to document patency of the vein punctured. All elements of the maximal barrier technique were utilized. FLUOROSCOPY TIME: 0.1 minutes and one image submitted IMPRESSION: Successful PICC line placement under ultrasound and fluoroscopic guidance.
[2022-05-07] MEDS: ASPIRIN 81 MG PO SCH (14:37)
[2022-05-07] MEDS: COLLAGENASE 250 UNIT/GM OINTMENT 30 GM TUBE TOPICAL SCH (14:37)
--- NOTE | 2022-05-07 14:43 | P.PN ---
Subjective Progress Note Date: 05/07/22 (Chest x-ray aspiration pneumonia) Progress note Date of service 05/07/[address] Iniguez. General condition discussed with the in detail, Chest x-ray done this morning after seen by Dr. Herrera pulmonary and critical care which indicating aspiration pneumonia with the leg of the results after the event happened of the vomiting on the night of Friday to Friday as well as last night. Patient seen by Dr. Dean yesterday and will be seen today and his feeding has been withheld. And actually when that was started yesterday started on 20 mL of which is very small dose. Discussed with the RN johny, and patient has blood pressure elevation lost time was 162/93 and 192/70 with a mean pressure ranging between 116 and 110. Oxygen saturation also dropped and he is on 4 L nasal cannula with the saturation currently 91. Patient seen by invasive radiology and PICC line was placed in the left arm for the infusion of the antibiotic. Vital signs today temperature 98.3 F oral and pulse rate 74 and respiratory rate 16, last blood pressure was 192/70 and we started him on Vasotec IV 1.25 mg every 6 hour and we'll see if that improves his blood pressure orally for for many other agent to control the hypertension. Laboratory: The WBC gradual improvement started on 05/05/2022 with the 27.85 WBC on the 05/06/2022 dropped to 18.6, on 05/07/2022 dropped to 16.27 and his hemoglobin his fluctuating currently 10 with a hematocrit 30.6. The patient on anticoagulant Chemistry indicating sodium 133, potassium 4.2 chloride 106 carbon dioxide 24, anion gap 3 BUN is 25 and creatinine 0.91 with a EGFR for non- 82 and his blood sugar has been monitored with controlled well at this time, calcium is 8.1 Vancomycin level trough, 16.1 On the physical exam: The head was normocephalic and atraumatic pupils equal reactive, oropharynx natural teeth and he had cough. Neck was supple no JVD no thyromegaly no lymphadenopathy. Chest: Scattered rhonchi bilateral with the chest x-ray indicating aspiration pneumonia and decreased air entry on the basis. Heart was regular sinus with history of atrial fibrillation Abdomen he had no tenderness and he had the PEG tube in place Extremities: He had received this morning On the left arm to be infused with the IV as well as the antibiotic the vanc omycin and to be prepared for future placement in the half-way. Status post debridement of the left heel with positive for MRSA where the antibiotic is started. Assessment: #1 aspiration pneumonia secondary to episodes of vomiting #2 leukocytosis associated with the aspiration pneumonia #3 bilateral hemispheric CVA with acute on top of chronic associated with the paroxysmal atrial fibrillation #4 dysphagia [place] associated with bulbar, or the CVA #5 PEG tube placement with inability to eat and unable to thrive #6 hyponatremia mild associated with the CVA #7 situation depression seen by the psychiatry and started on Remeron. #8 seen by the neurologist on admission with the underlying left parietal frontal enhancement as well as by hemispheric CVA acute on top of subacute #[address] Pathak saw the patient and evaluated him in regard of the enhancement of 1.6 cm in the left frontoparietal and ordered bone scan which indicate its presence for 6 years ago when the checked old record. Excluded the metastasis. Workup for multiple myeloma in progress note results yet available which ordered by Dr. Pathak #10 history of prostate cancer treated with radiation therapy and his current PSA 0.1 #11 hypertension with hypertensive heart disease #12 paroxysmal atrial fibrillation currently in sinus rhythm. Plan: #1 patient will be checked by Dr. Dean today for his feeding and the tolerance of the feeding. #2 starting the antibiotics through the PICC line #3 plan for continue the antibiotic which did not change by the pulmonary and critical care Dr. Herrera. #4 future plan for half-way for continuing rehabilitation and follow-up with the respective consulting physician. Objective - Vital Signs Vital signs: Vital Signs Temp 98.3 F 05/07/22 07:34 Pulse 86 05/07/22 12:49 Resp 16 05/07/22 07:34 BP 192/70 05/07/22 07:34 Pulse Ox 91 L 05/07/22 08:24 FiO2 Intake & Output 05/06/22 05/07/22 05/07/22 18:59 06:59 18:59 Intake Total 240 Balance 240 Weight 102 kg 102 kg Intake: Tube Feeding 240 Other: Voiding Method External Catheter Diaper Incontinent # Bowel Movements 1 - Labs CBC & Chem 7: 05/07/22 06:22 05/06/22 08:52 Labs: Abnormal Lab Results - Last 24 Hours (Table) 05/06/22 05/07/22 Range/Units 08:52 06:22 WBC 16.27 H (4.50-10.00) X 10*3/uL RBC 3.04 L (4.40-5.60) X 10*6/uL Hgb 10.0 L (13.0-17.0) g/dL Hct 30.6 L (39.6-50.0) % MCV 100.7 H (80.0-97.0) fL MCH 32.9 H (27.0-32.0) pg Immature Gran # 0.10 H (0.00-0.04) X 10*3/uL Neutrophils # 13.77 H (1.80-7.70) X 10*3/uL Lymphocytes # 0.54 L (0.90-5.00) X 10*3/uL Monocytes # 1.73 H (0.20-1.00) X 10*3/uL Sodium 133 L (137-145) mmol/L BUN 25 H (9-20) mg/dL Calcium 8.1 L (8.4-10.2) mg/dL Microbiology - Last 24 Hours (Table) 05/05/22 08:22 Blood Culture - Preliminary Blood No Growth after 48 hours 05/05/22 08:18 Blood Culture - Preliminary Blood No Growth after 48 hours 05/03/22 15:09 Blood Culture - Preliminary Blood No Growth after 72 hours 05/02/22 14:34 Anaerobic Culture - Final Heel - Right
--- NOTE | 2022-05-07 14:49 | P.PN ---
Subjective Progress Note Date: 05/07/22 This is a 76-year-old white male admitted initially on 04/24/22, patient has been in the hospital now for just over 10 days. Patient was admitted mostly with weakness and failure to thrive, he had no active pulmonary symptoms whatsoever. P patient had multiple electrolyte dyscrasia, severe hyponatremia, he also had atient was seen by many consultants since admission including internal medicine, neurology, psychiatry, cardiology, general surgery, oncology, basically the patient is being evaluated for ileus, he had a PEG tube placed on 04/21 by general surgery, leukocytosis, patient also had worsening pressure ulcer to the right heel requiring debridement, and he had positive MRSA infection, this is being addressed by infectious disease on the case, and the patient is on vancomycin. At any rate the patient had a witnessed aspiration yesterday, apparently there was some issue with his PEG tube, patient aspirated and this was witnessed, hence this consult was initiated. Chest x-ray this morning showed mild interstitial density consistent most likely secondary to aspiration involving the right upper lobe and the left lower lobe. Nonetheless the patient is empirically covered with antibiotics, his feeding is presently on hold, and I recommended that his PEG tube gets placed on intermittent suction. Not much to be added from my perspective at this point. Patient is on 5 L nasal cannula and O2 sats 94%. He had a low-grade temp last night of 100.9 The patient is seen today 05/06/2022 in follow-up on the regular medical floor. He is currently resting comfortably in bed. Awake and alert in no acute distress. He is maintaining O2 saturations in the 90s on 4 L/m per nasal cannula. He does have a dry nonproductive cough. Patient was found to have MRSA on his right heel. He is currently in vancomycin and Augmentin. We're consulted for possible aspiration pneumonia. He did have a temperature 100.6. Currently 99 6. Bone scan revealed no areas of metastasis. The cultures reveal no growth. White count 18.6. Hemoglobin 11.3. The patient is seen today 05/07/2022 in follow-up on the regular medical floor. Awake and alert in no acute distress. Resting comfortably in bed. Maintaining O2 saturations in the 90s on 4 L/m per nasal cannula. He is having issues with increasing cough and congestion. Chest x-ray reveals a patchy left lower lobe and right upper lobe infiltrates with tiny effusions superimposed on background COPD. Stable compared to previous on 05/05/2022. He has normal saline at 50 MLS per hour. He is being treated for right heel wound that was positive for MRSA. Blood cultures reveal no growth. White count 16.2. Hemoglobin 10.0. Pl atelets 342. He is continued on vancomycin and Augmentin. Anticoagulated with Xarelto. Continued on bronchodilators. Objective - Vital Signs Vital signs: Vital Signs Temp 99.3 F 05/07/22 14:00 Pulse 81 05/07/22 14:00 Resp 16 05/07/22 14:00 BP 150/73 05/07/22 14:00 Pulse Ox 90 L 05/07/22 14:00 FiO2 Intake & Output 05/06/22 05/07/22 05/07/22 18:59 06:59 18:59 Intake Total 240 Balance 240 Weight 102 kg 102 kg Intake: Tube Feeding 240 Other: Voiding Method External Catheter Diaper Incontinent # Bowel Movements 1 - Exam GENERAL DESCRIPTION: Awake, alert 76-year-old male, frail, weak, chronically ill. On 4 L nasal cannula. Not in any distress. HEENT: Pale, nonicteric, no neck masses dry mucous membranes. NECK: No neck masses no JVD no stridor. LUNGS: Diminished breath sounds at the bases, minimal crackles at the right left base, no rhonchi and no wheezes HEART: Distant S1 and S2, no S3 gallop. ABDOMEN: Soft, no tenderness , guarding or rigidity, no organomegaly, PEG tube is noted. EXTREMITIES: Right heel wound dressing is noted otherwise unremarkable. SKIN: No rash, as noted above under extremities.. NEUROLOGICAL: Patient is alert awake, oriented 3, however he is chronically weak. - Labs CBC & Chem 7: 05/07/22 06:22 05/06/22 08:52 Labs: Abnormal Lab Results - Last 24 Hours (Table) 05/04/22 05/06/22 05/07/22 Range/Units 07:04 08:52 06:22 WBC 16.27 H (4.50-10.00) X 10*3/uL RBC 3.04 L (4.40-5.60) X 10*6/uL Hgb 10.0 L (13.0-17.0) g/dL Hct 30.6 L (39.6-50.0) % MCV 100.7 H (80.0-97.0) fL MCH 32.9 H (27.0-32.0) pg Immature Gran # 0.10 H (0.00-0.04) X 10*3/uL Neutrophils # 13.77 H (1.80-7.70) X 10*3/uL Lymphocytes # 0.54 L (0.90-5.00) X 10*3/uL Monocytes # 1.73 H (0.20-1.00) X 10*3/uL Sodium 133 L (137-145) mmol/L BUN 25 H (9-20) mg/dL Calcium 8.1 L (8.4-10.2) mg/dL Free [place] LC, Quant 4.14 H (0.33-1.94) mg/dL Microbiology - Last 24 Hours (Table) 05/05/22 08:22 Blood Culture - Preliminary Blood No Growth after 48 hours 05/05/22 08:18 Blood Culture - Preliminary Blood No Growth after 48 hours 05/03/22 15:09 Blood Culture - Preliminary Blood No Growth after 72 hours 05/02/22 14:34 Anaerobic Culture - Final Heel - Right Assessment and Plan Assessment: Possible aspiration pneumonia , nonetheless the patient is asymptomatic, and he is already empirically on antibiotics for his MRSA infection, that will be ap propriate for his aspiration pneumonia. Follow-up chest x-ray continues to show limited patchy infiltrate in the left lower lobe and right upper lobe. Remains on vancomycin and Augmentin. We'll screen for COVID-19. Possible ileus, being addressed by general surgery on the case. History of adenocarcinoma of the prostate. Superficial venous thrombosis, right cephalic vein from level of mid bicep and upper forearm, being addressed by vascular surgery on the case, no evidence of DVT Benign essential hypertension Chronic weakness and failure to thrive Status post debridement of heel for MRSA infection Dysphagia secondary to CVA and history of PEG tube placement Plan: The patient was seen and evaluated Labs and medications reviewed Complaints of increased cough and congestion Chest x-ray ordered, CoVID screen ordered Currently stable and on 4 L nasal cannula Titrate the FiO2 as tolerated Antibiotics per ID services We will continue to follow I have personally seen and examined the patient, performed the documentation and the assessment and plan as written. Number of minutes spent on the visit: 10.
[2022-05-07] MEDS: BENZONATATE 100 MG CAP PO SCH ×2 (14:55→20:07)
[2022-05-07] MEDS: guaiFENesin-DM 100-10MG/5ML 10 ML CUP PO PRN ×2 (15:02→22:39)
[2022-05-07 16:03] LABS: % Iron Saturation 16.88 (15.00-50.00)
[2022-05-07] MEDS: CHOLECALCIFEROL 25 MCG (1000 IU) TABLET PO SCH (16:33)
[2022-05-07] MEDS: RIVAROXABAN 20 MG TAB PO SCH (16:33)
[2022-05-07] MEDS: CYANOCOBALAMIN 500 MCG TAB PO SCH (16:33)
[2022-05-07] MEDS: ATORVASTATIN 80 MG TAB PO SCH (20:07)
[2022-05-07] MEDS: MIRTAZAPINE 15 MG TAB PO SCH (20:07)
[2022-05-07] MEDS: MELATONIN 3 MG TABLET PO SCH (20:07)
[2022-05-07] MEDS: FORMOTEROL FUMARATE 20 MCG/2 ML NEBU INHALATION SCH (20:35)
[2022-05-07] MEDS: BUDESONIDE 1 MG/2 ML NEBU INHALATION SCH (20:35)
[2022-05-08] MEDS: guaiFENesin-DM 100-10MG/5ML 10 ML CUP PO PRN (04:13)
[2022-05-08] MEDS: VANCOMYCIN 1,500 MG in SODIUM CHLORIDE 0.9% 500 ML 500 ML IVPB SCH ×2 (04:13→16:35)
[2022-05-08] MEDS: SODIUM CHLORIDE 0.9% 1,000 ML IV SCH (04:14)
--- NOTE | 2022-05-08 07:25 | XR ---
EXAMINATION TYPE: XR abdomen 2V DATE OF EXAM: 05/08/2022 5:28 AM INDICATION: Patient age:Male; 76 years old; Reason for study: follow-up ileus; COMPARISON: Abdominal radiograph 05/05/2022 TECHNIQUE: Two views of the abdomen were obtained. FINDINGS: Gaseous dilation of the stomach. Interval decrease in dilation of the small bowel. Oral con trast is seen extending to the rectum. Right hip arthroplasty changes with hardware intact. This cour se of the arterial vasculature. PEG tube in appropriate position of the gastric lumen. IMPRESSION: 1. Interval decrease in small bowel dilation. 2. PEG tube projecting over the gastric lumen. 3. Gaseous dilation of the stomach. The bowel gas pattern is otherwise nonspecific.
[2022-05-08] MEDS: AMIODARONE 200 MG TAB PO SCH (09:11)
[2022-05-08] MEDS: ONDANSETRON 4 MG/2 ML VIAL IVP PRN (09:11)
[2022-05-08] MEDS: ASPIRIN 81 MG PO SCH (09:11)
[2022-05-08] MEDS: PANTOPRAZOLE 40 MG/10 ML VIAL IVP SCH (09:11)
[2022-05-08] MEDS: TAMSULOSIN 0.4 MG CAP.ER.24H PO SCH (09:11)
[2022-05-08] MEDS: TROSPIUM CHLORIDE 20 MG TABLET PO SCH (09:12)
[2022-05-08] MEDS: AMOXIC-POT CLAV 875-125MG 1 EACH TAB PO SCH ×2 (09:12→20:50)
[2022-05-08] MEDS: COLLAGENASE 250 UNIT/GM OINTMENT 30 GM TUBE TOPICAL SCH (09:13)
[2022-05-08] MEDS: BUDESONIDE 1 MG/2 ML NEBU INHALATION SCH ×2 (10:01→19:33)
[2022-05-08] MEDS: FORMOTEROL FUMARATE 20 MCG/2 ML NEBU INHALATION SCH ×2 (10:01→19:33)
[2022-05-08] MEDS: IPRATROPIUM-ALBUTEROL 3 ML NEB INHALATION SCH ×4 (10:01→19:33)
[2022-05-08 10:35] LABS: African American GFR (CKD) 95.9 (60.0-200.0); Non-African American GFR(CKD) 82.7 (60.0-200.0)
[2022-05-08] MEDS: BENZONATATE 100 MG CAP PO SCH ×3 (11:10→20:51)
--- NOTE | 2022-05-08 12:47 | P.PN ---
Subjective Progress Note Date: 05/06/22 Principal diagnosis: Right heel infected pressure ulcer Patient is a 76 year old male with multiple comorbidities snf resident noticed to have a worsening pressure ulcer to the right heel status post debridement culture positive for MRSA. On today's evaluation that is 05/06/2022, the patient did have a low-grade fever 100.6 F after midnight the patient is afebrile since then patient seem to have a problem tolerating his tube feeds and apparently has been vomiting denies having abdominal pain and the patient did have 2 bowel movement yesterday per the nursing staff denies pain to the right heel area Objective - Vital Signs Vital signs: Vital Signs Temp 99.6 F 05/06/22 07:59 Pulse 72 05/06/22 07:59 Resp 20 05/06/22 07:59 BP 120/69 05/06/22 07:59 Pulse Ox 91 L 05/06/22 07:59 FiO2 Intake & Output 05/05/22 05/06/22 05/06/22 18:59 06:59 18:59 Output Total 800 650 Balance -800 -650 Weight 98.5 kg Output: Urine 800 650 Other: Voiding Method External Catheter External Catheter External Catheter - Exam GENERAL DESCRIPTION: An elderly male lying in bed in no distress RESPIRATORY SYSTEM: Unlabored breathing , decreased breath sounds at bases HEART: S1 S2 regular rate and rhythm , ABDOMEN: Soft , no tenderness EXTREMITIES: Right he is currently dressed no drainage on the dressing - Labs CBC & Chem 7: 05/07/22 06:22 05/08/22 06:16 Labs: Abnormal Lab Results - Last 24 Hours (Table) 05/04/22 05/05/22 05/06/22 Range/Units 07:04 16:26 08:52 WBC 18.6 H (3.8-10.6) k/uL RBC 3.46 L (4.30-5.90) m/uL Hgb 11.3 L (13.0-17.5) gm/dL Hct 34.5 L (39.0-53.0) % Neutrophils # 16.5 H (1.3-7.7) k/uL Lymphocytes # 0.5 L (1.0-4.8) k/uL Monocytes # 1.1 H (0-1.0) k/uL POC Glucose (mg/dL) 122 H (70-110) mg/dL Total Protein (PEP) 3.9 L (6.2-8.2) g/dL Albumin (PEP) 1.69 L (3.80-4.90) g/dL Beta Globulins 0.50 L (0.60-1.30) g/dL Gamma Globulins 0.67 L (0.70-1.50) g/dL Microbiology - Last 24 Hours (Table) 05/02/22 14:34 Anaerobic Culture - Final Heel - Right 05/05/22 08:22 Blood Culture - Preliminary Blood No Growth after 24 hours 05/05/22 08:18 Blood Culture - Preliminary Blood No Growth after 24 hours 05/03/22 15:09 Blood Culture - Preliminary Blood No Growth after 48 hours Assessment and Plan (1) Open wound of right heel Current Visit: Yes Status: Acute Code(s): S91.301A - UNSPECIFIED OPEN WOUND, RIGHT FOOT, INITIAL ENCOUNTER SNOMED Code(s): 940318929 (2) MRSA (methicillin resistant staph aureus) culture positive Current Visit: Yes Status: Acute Code(s): Z22.322 - CARRIER OR SUSPECTED CARRIER OF METHICILLIN RESIS STAPH SNOMED Code(s): 866079019 Plan: 1patient with right heel infected pressure ulcer in this patient with status post surgical debridement did not mention any extension down to the bone however will be discussed further with the vascular surgery culture now showing presumptive MRSA patient did have a low-grade fever and mild elevated white count with a left shift. 2blood cultures are so far negative 3Patient to continue vancomycin pharmacy to dose local wound care as ordered keep the area off the pressure and monitor clinical course closely Time with Patient: Less than 30
--- NOTE | 2022-05-08 12:49 | P.PN ---
Subjective Progress Note Date: 05/07/22 Principal diagnosis: Right heel infected pressure ulcer Patient is a 76 year old male with multiple comorbidities [facility] resident noticed to have a worsening pressure ulcer to the right heel status post debridement culture positive for MRSA. On today's evaluation that is 05/07/2022 the patient is afebrile breathing comfortably patient is currently on a 4 L nasal cannula the patient denies having any chest pain no worsening coverlets progression abdominal pain or diarrhea has been complaining of not tolerating his tube feeds Objective - Vital Signs Vital signs: Vital Signs Temp 99.3 F 05/07/22 14:00 Pulse 92 05/07/22 16:18 Resp 16 05/07/22 14:00 BP 150/73 05/07/22 14:00 Pulse Ox 90 L 05/07/22 14:00 FiO2 Intake & Output 05/06/22 05/07/22 05/07/22 18:59 06:59 18:59 Intake Total 240 Balance 240 Weight 102 kg 102 kg Intake: Tube Feeding 240 Other: Voiding Method External Catheter Diaper Incontinent # Bowel Movements 1 - Exam GENERAL DESCRIPTION: An elderly male lying in bed in no distress RESPIRATORY SYSTEM: Unlabored breathing , decreased breath sounds at bases HEART: S1 S2 regular rate and rhythm , ABDOMEN: Soft , no tenderness EXTREMITIES: Right he is currently dressed no drainage on the dressing - Labs CBC & Chem 7: 05/07/22 06:22 05/08/22 06:16 Labs: Abnormal Lab Results - Last 24 Hours (Table) 05/04/22 05/04/22 05/07/22 Range/Units 07:04 07:04 06:22 WBC 16.27 H (4.50-10.00) X 10*3/uL RBC 3.04 L (4.40-5.60) X 10*6/uL Hgb 10.0 L (13.0-17.0) g/dL Hct 30.6 L (39.6-50.0) % MCV 100.7 H (80.0-97.0) fL MCH 32.9 H (27.0-32.0) pg Immature Gran # 0.10 H (0.00-0.04) X 10*3/uL Neutrophils # 13.77 H (1.80-7.70) X 10*3/uL Lymphocytes # 0.54 L (0.90-5.00) X 10*3/uL Monocytes # 1.73 H (0.20-1.00) X 10*3/uL TIBC 143 L (228-460) ug/dL Transferrin 102.0 L (204.0-354.0) mg/dL Free [place] LC, Quant 4.14 H (0.33-1.94) mg/dL Microbiology - Last 24 Hours (Table) 05/03/22 15:09 Blood Culture - Preliminary Blood No Growth after 96 hours 05/05/22 08:22 Blood Culture - Preliminary Blood No Growth after 48 hours 05/05/22 08:18 Blood Culture - Preliminary Blood No Growth after 48 hours 05/02/22 14:34 Anaerobic Culture - Final Heel - Right Assessment and Plan (1) Open wound of right heel Current Visit: Yes Status: Acute Code(s): S91.301A - UNSPECIFIED OPEN WOUND, RIGHT FOOT, INITIAL ENCOUNTER SNOMED Code(s): 964542846 (2) MRSA (methicillin resistant staph aureus) culture positive Current Visit: Yes Status: Acute Code(s): Z22.322 - CARRIER OR SUSPECTED CARRIER OF METHICILLIN RESIS STAPH SNOMED Code(s): 330040670 Plan: 1patient with right heel infected pressure ulcer in this patient with status post surgical debridement did not mention any extension down to the bone however will be discussed further with the vascular surgery culture now showing presumptive MRSA patient did have a low-grade fever and mild elevated white count with a left shift. 2blood cultures are so far negative, White count is trending down down to 16,000 today 3Patient will continue with the vancomycin for his right heel infection while watching his kidney function closely keep the area dry and off the pressure Time with Patient: Less than 30
--- NOTE | 2022-05-08 13:20 | P.PN ---
Subjective Progress Note Date: 05/08/22 Progress note date of service 05/08/[address] Romeo Henriquez. Patient seen [id number] today and discussed with his . The blood pressure has been elevated 165/79 prior to that 170/69, we'll start l isinopril 5 mg twice a day as well as amlodipine at bedtime to be held if the blood pressure 120 systolic or below. Vital signs today temperature 97.8 F oral pulse rate 73/m respiratory 18/m. Patient on nasal cannula 4 L/m. With the underlying hypoxemia secondary to aspiration pneumonia with the recurrent vomiting with visualization. Patient has PEG tube and currently drained by order of Dr. Dean. Patient is conscious alert able to answer some question and he feeling sick as he stated. Head was normocephalic and atraumatic pupils equal reactive oropharynx natural teeth neck was supple no JVD. Chest she has a scattered rhonchi's with the patchy infiltrate of the chest secondary to aspiration with the associated hypoxemia Heart regular sinus rhythm with a history of atrial fibrillation currently controlled. Abdomen he had PEG tube and the x-ray of the abdomen showed the small bowel mild improvement with the underlying ileus. Currently is nothing by mouth. Extremities: No edema on the lower extremities he has right elbow edema with the history of superficial vein thrombosis and erythematous scan has been resolved completely. Left arm PICC line to receive the antibiotic vancomycin. Psychiatry no change Neurology no change Assessment: And plan #1 hypertension is not controlled and we started adjusting the medication. As mentioned above #2 followed by pulmonary, continued the treatment with antibiotic per infectious disease as well. #3 main problem hindering the patient from going to the [facility] his his abdomen and inability to proceed on with the nausea no vomiting and at this time Dr. Parham is helping for resolving this problem #4 hypertension and we started medication and will repeat laboratories in a.m. Objective - Vital Signs Vital signs: Vital Signs Temp 97.8 F 05/08/22 07:28 Pulse 88 05/08/22 11:52 Resp 18 05/08/22 11:52 BP 165/79 05/08/22 07:28 Pulse Ox 93 L 05/08/22 07:28 FiO2 Intake & Output 05/07/22 05/08/22 05/08/22 18:59 06:59 18:59 Intake Total 240 Balance 240 Weight 102 kg 102 kg 102 kg Intake: Tube Feeding 240 Other: Voiding Method Diaper Diaper Incontinent Incontinent # Voids 3 1 - Labs CBC & Chem 7: 05/07/22 06:22 05/08/22 06:16 Labs: Abnormal Lab Results - Last 24 Hours (Table) 05/04/22 05/04/22 Range/Units 07:04 07:04 TIBC 143 L (228-460) ug/dL Transferrin 102.0 L (204.0-354.0) mg/dL Free [place] LC, Quant 4.14 H (0.33-1.94) mg/dL Microbiology - Last 24 Hours (Table) 05/05/22 08:22 Blood Culture - Preliminary Blood No Growth after 72 hours 05/05/22 08:18 Blood Culture - Preliminary Blood No Growth after 72 hours 05/03/22 15:09 Blood Culture - Preliminary Blood No Growth after 96 hours
--- NOTE | 2022-05-08 13:40 | P.PN ---
Subjective Progress Note Date: 05/08/22 CHIEF COMPLAINT: Dysphagia HISTORY OF PRESENT ILLNESS: Patient is status post PEG tube placement 04/30/22. Patient reports that he is not feeling well today. He is complaining of nausea. He did have one episode of vomiting last night. He denies any abdominal pain. His PEG tube feedings are currently on hold. Abdominal x-ray shows interval decrease in small bowel dilation. PEG tube projecting over the gastric lumen. Gaseous dilation of the stomach. Bowel gas pattern is otherwise nonspecific. Afebrile. No new labs PHYSICAL EXAM: VITAL SIGNS: Reviewed. GENERAL: Well-developed in no acute distress. ABDOMEN: Soft. Mildly distended. Nontender. PEG tube site clean dry and intact NEUROLOGIC: Alert and oriented. Cranial nerves II through XII grossly intact. ASSESSMENT: 1. Dysphagia 2. Severe protein calorie malnutrition 3. History of CVA 4. Possible aspiration pneumonia PLAN: -Continue to hold tube feeds -Due to gaseous dilation of stomach we'll place PEG tube on dependent drainage -Make patient NPO -Continue supportive care -Continue antiemetics as needed -Continue IV fluids Physician Paraffin Machine Operator note has been reviewed by physician. Signing provider agrees with the documented findings, assessment, and plan of care. Objective - Vital Signs Vital signs: Vital Signs Temp 97.8 F 05/08/22 07:28 Pulse 88 05/08/22 11:52 Resp 18 05/08/22 11:52 BP 165/79 05/08/22 07:28 Pulse Ox 93 L 05/08/22 07:28 FiO2 Intake & Output 05/07/22 05/08/22 05/08/22 18:59 06:59 18:59 Intake Total 240 Balance 240 Weight 102 kg 102 kg 102 kg Intake: Tube Feeding 240 Other: Voiding Method Diaper Diaper Incontinent Incontinent # Voids 3 1 - Labs CBC & Chem 7: 05/07/22 06:22 05/08/22 06:16 Labs: Abnormal Lab Results - Last 24 Hours (Table) 05/04/22 05/04/22 Range/Units 07:04 07:04 TIBC 143 L (228-460) ug/dL Transferrin 102.0 L (204.0-354.0) mg/dL Free [place] LC, Quant 4.14 H (0.33-1.94) mg/dL Microbiology - Last 24 Hours (Table) 05/05/22 08:22 Blood Culture - Preliminary Blood No Growth after 72 hours 05/05/22 08:18 Blood Culture - Preliminary Blood No Growth after 72 hours 05/03/22 15:09 Blood Culture - Preliminary Blood No Growth after 96 hours
[2022-05-08] MEDS ORDERED: VANCOMYCIN TROUGH DUE 1 EACH MISC MISCELLANE ONE (15:00)
--- NOTE | 2022-05-08 16:41 | P.PN ---
Subjective Progress Note Date: 05/08/22 This is a 76-year-old white male admitted initially on 04/24/22, patient has been in the hospital now for just over 10 days. Patient was admitted mostly with weakness and failure to thrive, he had no active pulmonary symptoms whatsoever. P patient had multiple electrolyte dyscrasia, severe hyponatremia, he also had atient was seen by many consultants since admission including internal medicine, neurology, psychiatry, cardiology, general surgery, oncology, basically the patient is being evaluated for ileus, he had a PEG tube placed on 04/21 by general surgery, leukocytosis, patient also had worsening pressure ulcer to the right heel requiring debridement, and he had positive MRSA infection, this is being addressed by infectious disease on the case, and the patient is on vancomycin. At any rate the patient had a witnessed aspiration yesterday, apparently there was some issue with his PEG tube, patient aspirated and this was witnessed, hence this consult was initiated. Chest x-ray this morning showed mild interstitial density consistent most likely secondary to aspiration involving the right upper lobe and the left lower lobe. Nonetheless the patient is empirically covered with antibiotics, his feeding is presently on hold, and I recommended that his PEG tube gets placed on intermittent suction. Not much to be added from my perspective at this point. Patient is on 5 L nasal cannula and O2 sats 94%. He had a low-grade temp last night of 100.9 The patient is seen today 05/06/2022 in follow-up on the regular medical floor. He is currently resting comfortably in bed. Awake and alert in no acute distress. He is maintaining O2 saturations in the 90s on 4 L/m per nasal cannula. He does have a dry nonproductive cough. Patient was found to have MRSA on his right heel. He is currently in vancomycin and Augmentin. We're consulted for possible aspiration pneumonia. He did have a temperature 100.6. Currently 99 6. Bone scan revealed no areas of metastasis. The cultures reveal no growth. White count 18.6. Hemoglobin 11.3. The patient is seen today 05/07/2022 in follow-up on the regular medical floor. Awake and alert in no acute distress. Resting comfortably in bed. Maintaining O2 saturations in the 90s on 4 L/m per nasal cannula. He is having issues with increasing cough and congestion. Chest x-ray reveals a patchy left lower lobe and right upper lobe infiltrates with tiny effusions superimposed on background COPD. Stable compared to previous on 05/05/2022. He has normal saline at 50 MLS per hour. He is being treated for right heel wound that was positive for MRSA. Blood cultures reveal no growth. White count 16.2. Hemoglobin 10.0. Pl atelets 342. He is continued on vancomycin and Augmentin. Anticoagulated with Xarelto. Continued on bronchodilators. The patient is seen today 05/08/2022 in follow-up on the regular medical floor. He is currently resting in bed. Awake and alert in no acute distress. He continues with a loose nonproductive cough. No fever chills. Maintaining good O2 saturations in the mid 90s on 4 L/m per nasal cannula. Afebrile. Hemodynamically stable. Right heel culture positive for methicillin-resistant Staphylococcus aureus. Blood cultures revealing no growth. Creatinine 0.9. Singh virus not detected. He remains on Augmentin, bronchodilators. Endocrine related with Xarelto. Continued on vancomycin. Objective - Vital Signs Vital signs: Vital Signs Temp 98.4 F 05/08/22 14:00 Pulse 86 05/08/22 16:33 Resp 13 05/08/22 14:00 BP 135/68 05/08/22 14:00 Pulse Ox 91 L 05/08/22 14:00 FiO2 Intake & Output 05/07/22 05/08/22 05/08/22 18:59 06:59 18:59 Intake Total 240 Balance 240 Weight 102 kg 102 kg 102 kg Intake: Tube Feeding 240 Other: Voiding Method Diaper Diaper Incontinent Incontinent # Voids 3 1 - Exam GENERAL DESCRIPTION: Awake, alert 76-year-old male, frail, weak, chronically ill. On 4 L nasal cannula. HEENT: Pale, nonicteric, no neck masses dry mucous membranes. NECK: No neck masses no JVD no stridor. LUNGS: Diminished breath sounds at the bases, minimal crackles at the right left base, no rhonchi and no wheezes HEART: Distant S1 and S2, no S3 gallop. ABDOMEN: Soft, no tenderness , guarding or rigidity, no organomegaly, PEG tube is noted. EXTREMITIES: Right heel wound dressing is noted otherwise unremarkable. SKIN: No rash, as noted above under extremities.. NEUROLOGICAL: Patient is alert awake, oriented 3, however he is chronically weak. - Labs CBC & Chem 7: 05/07/22 06:22 12 06:16 Labs: Microbiology - Last 24 Hours (Table) 05/05/22 08:22 Blood Culture - Preliminary Blood No Growth after 72 hours 05/05/22 08:18 Blood Culture - Preliminary Blood No Growth after 72 hours 05/03/22 15:09 Blood Culture - Preliminary Blood No Growth after 96 hours Assessment and Plan Assessment: Possible aspiration pneumonia , nonetheless the patient is asymptomatic, and he is already empirically on antibiotics for his MRSA infection, that will be appropriate for his aspiration pneumonia. Follow-up chest x-ray continues to show limited patchy infiltrate in the left lower lobe and right upper lobe. Remains on vancomycin and Augmentin. COVID-19 screen negative. Possible ileus, being addressed by general surgery on the case. History of adenocarcinoma of the prostate. Superficial venous thrombosis, right cephalic vein from level of mid bicep and upper forearm, being addressed by vascular surgery on the case, no evidence of DVT Benign essential hypertension Chronic weakness and failure to thrive Status post debridement of heel for MRSA infection Dysphagia secondary to CVA and history of PEG tube placement Plan: The patient was seen and evaluated Labs and medications reviewed Currently stable and on 4 L nasal cannula Titrate the FiO2 as tolerated Antibiotics per ID services We will continue to follow I have personally seen and examined the patient, performed the documentation and the assessment and plan as written. Number of minutes spent on the visit: 10.
[2022-05-08] MEDS: amLODIPine 5 MG TAB PO SCH (16:45)
[2022-05-08] MEDS: CHOLECALCIFEROL 25 MCG (1000 IU) TABLET PO SCH (16:45)
[2022-05-08] MEDS: CYANOCOBALAMIN 500 MCG TAB PO SCH (16:45)
[2022-05-08] MEDS: RIVAROXABAN 20 MG TAB PO SCH (16:46)
[2022-05-08] MEDS: lisinopriL 5 MG TAB PO SCH ×2 (16:46→20:51)
[2022-05-08] MEDS: HYDROcodone/APAP 5-325MG 1 EACH TAB PO PRN (20:32)
[2022-05-08] MEDS: MIRTAZAPINE 15 MG TAB PO SCH (20:50)
[2022-05-08] MEDS: MELATONIN 3 MG TABLET PO SCH (20:50)
[2022-05-08] MEDS: ATORVASTATIN 80 MG TAB PO SCH (20:50)
[2022-05-09] MEDS: VANCOMYCIN 1,500 MG in SODIUM CHLORIDE 0.9% 500 ML 500 ML IVPB SCH ×2 (04:59→16:32)
[2022-05-09] MEDS: FORMOTEROL FUMARATE 20 MCG/2 ML NEBU INHALATION SCH ×2 (08:28→20:09)
[2022-05-09] MEDS: BUDESONIDE 1 MG/2 ML NEBU INHALATION SCH ×2 (08:28→20:09)
[2022-05-09] MEDS: IPRATROPIUM-ALBUTEROL 3 ML NEB INHALATION SCH ×4 (08:28→20:09)
[2022-05-09] MEDS: amLODIPine 5 MG TAB PO SCH (09:25)
[2022-05-09] MEDS: PANTOPRAZOLE 40 MG/10 ML VIAL IVP SCH (09:25)
[2022-05-09] MEDS: lisinopriL 5 MG TAB PO SCH ×2 (09:25→22:18)
[2022-05-09] MEDS: TROSPIUM CHLORIDE 20 MG TABLET PO SCH (09:25)
[2022-05-09] MEDS: TAMSULOSIN 0.4 MG CAP.ER.24H PO SCH (09:25)
[2022-05-09] MEDS: AMIODARONE 200 MG TAB PO SCH (09:25)
[2022-05-09] MEDS: BENZONATATE 100 MG CAP PO SCH ×3 (09:26→22:18)
[2022-05-09] MEDS: COLLAGENASE 250 UNIT/GM OINTMENT 30 GM TUBE TOPICAL SCH (09:26)
[2022-05-09] MEDS: AMOXIC-POT CLAV 875-125MG 1 EACH TAB PO SCH ×2 (10:11→22:17)
[2022-05-09 10:35] LABS: Basophils # (A) 0.02 X 10*3/uL (0.00-0.10); Basophils % (A) 0.1 %; Eosinophils # (A) 0.26 X 10*3/uL (0.04-0.35); Eosinophils % (A) 1.5 %; HCT 32.2 % (39.6-50.0); HGB 10.3 g/dL (13.0-17.0); Immature Grans, Automated 0.6 %; Lymphocytes # (A) 0.62 X 10*3/uL (0.90-5.00); Lymphocytes % (A) 3.5 %; MCH 33.3 pg (27.0-32.0); MCV 104.2 fL (80.0-97.0); Mean Platelet Volume 9.6 fL (9.5-12.2); Monocytes # (A) 1.43 X 10*3/uL (0.20-1.00); NRBC Per 100 WBC 0 /100 WBCS (0.0-0.0); Neutrophils # (A) 15.45 X 10*3/uL (1.80-7.70); Neutrophils % (A) 86.3 %; Platelet Count 314 X 10*3/uL (140-440); RBC 3.09 X 10*6/uL (4.40-5.60); RDW 14.6 % (11.5-14.5); WBC 17.88 X 10*3/uL (4.50-10.00)
[2022-05-09 10:49] LABS: African American GFR (CKD) 93.8 (60.0-200.0); Anion Gap 8.4 mmol/L (10.00-18.00); BUN/Creat Ratio 29.69 Ratio (12.00-20.00); Blood Urea Nitrogen 27.2 mg/dL (9.0-27.0); Calcium 8.1 mg/dL (8.7-10.3); Carbon Dioxide 20.7 mmol/L (20.0-27.5); Non-African American GFR(CKD) 80.9 (60.0-200.0); Potassium 4.1 mmol/L (3.5-5.5)
--- NOTE | 2022-05-09 13:09 | P.PN ---
Subjective Progress Note Date: 05/09/22 CHIEF COMPLAINT: Dysphagia HISTORY OF PRESENT ILLNESS: Patient is status post PEG tube placement 04/30/22. Patient had PEG tube to independent drainage. Patient had initially about 100 mL of bilious output. This morning the day had about 1000 mL villous output. But patient has been drinking water. Patient reports that his abdominal pain has improved. He has had decreased abdominal distention. His nausea is improving but still a little nauseous this morning. Afebrile. WBC 17.88 Hgb 10.3 platelets 314 sodium is 135 potassium 4.1 creatinine 0.9 PHYSICAL EXAM: VITAL SIGNS: Reviewed. GENERAL: Well-developed in no acute distress. ABDOMEN: Soft. Mildly distended. Nontender. PEG tube site clean dry and intact. PEG tube connected to Luo catheter bag with bilious output NEUROLOGIC: Alert and oriented. Cranial nerves II through XII grossly intact. ASSESSMENT: 1. Dysphagia 2. Severe protein calorie malnutrition 3. History of CVA 4. Possible aspiration pneumonia PLAN: -Continue to hold tube feeds -Due to gaseous dilation of stomach continue PEG tube to independent drainage -Keep patient NPO -Continue supportive care -Continue antiemetics as needed -Continue IV fluids Physician Duck Operator note has been reviewed by physician. Signing provider agrees with the documented findings, assessment, and plan of care. I have personally seen and examined the patient, reviewed the COMPUTER SECURITY SPECIALIST /PAs history, exam and MDM and agree with the assessment and plan as written. Based on total visit time, I have performed more than 50% of the visit. As above: Patient seems to be doing better. PICC line unfortunately fell out. Agree with plans for TPN. Continue to hold tube feeds for now. Objective - Vital Signs Vital signs: Vital Signs Temp 98.3 F 05/09/22 07:15 Pulse 74 05/09/22 11:37 Resp 14 05/09/22 08:00 BP 161/68 05/09/22 07:15 Pulse Ox 94 L 05/09/22 08:29 FiO2 Intake & Output 05/08/22 05/09/22 05/09/22 18:59 06:59 18:59 Output Total 700 Balance -700 Weight 102 kg 103.5 kg Output: Post Void Residual 700 Other: Voiding Method Diaper External Catheter Incontinent # Voids 1 - Labs CBC & Chem 7: 05/09/22 06:08 05/09/22 06:08 Labs: Abnormal Lab Results - Last 24 Hours (Table) 05/09/22 05/09/22 Range/Units 06:08 06:08 WBC 17.88 H (4.50-10.00) X 10*3/uL RBC 3.09 L (4.40-5.60) X 10*6/uL Hgb 10.3 L (13.0-17.0) g/dL Hct 32.2 L (39.6-50.0) % MCV 104.2 H (80.0-97.0) fL MCH 33.3 H (27.0-32.0) pg RDW 14.6 H (11.5-14.5) % Immature Gran # 0.10 H (0.00-0.04) X 10*3/uL Neutrophils # 15.45 H (1.80-7.70) X 10*3/uL Lymphocytes # 0.62 L (0.90-5.00) X 10*3/uL Monocytes # 1.43 H (0.20-1.00) X 10*3/uL Anion Gap 8.40 L (10.00-18.00) mmol/L BUN 27.2 H (9.0-27.0) mg/dL BUN/Creatinine Ratio 29.69 H (12.00-20.00) Ratio Calcium 8.1 L (8.7-10.3) mg/dL Microbiology - Last 24 Hours (Table) 05/05/22 08:18 Blood Culture - Preliminary Blood No Growth after 96 hours 05/05/22 08:22 Blood Culture - Preliminary Blood No Growth after 96 hours 05/03/22 15:09 Blood Culture - Preliminary Blood No Growth after 120 hours
[2022-05-09] MEDS ORDERED: LIDOCAINE 1% INJ 10MG/ML (5 ML VIAL-PF) SQ ONE ×2 (13:23→13:31)
--- NOTE | 2022-05-09 13:47 | P.PN ---
Subjective Progress Note Date: 05/09/22 Principal diagnosis: Shortness of breath and cough. The patient is seen today 05/07/2022 in follow-up on the regular medical floor. Awake and alert in no acute distress. Resting comfortably in bed. Maintaining O2 saturations in the 90s on 4 L/m per nasal cannula. He is having issues with increasing cough and congestion. Chest x-ray reveals a patchy left lower lobe and right upper lobe infiltrates with tiny effusions superimposed on background COPD. Stable compared to previous on 05/05/2022. He has normal saline at 50 MLS per hour. He is being treated for right heel wound that was positive for MRSA. Blood cultures reveal no growth. White count 16.2. Hemoglobin 10.0. Platelets 342. He is continued on vancomycin and Augmentin. Anticoagulated with Xarelto. Continued on bronchodilators. The patient is seen today 05/08/2022 in follow-up on the regular medical floor. He is currently resting in bed. Awake and alert in no acute distress. He continues with a loose nonproductive cough. No fever chills. Maintaining good O2 saturations in the mid 90s on 4 L/m per nasal cannula. Afebrile. Hemodynamically stable. Right heel culture positive for methicillin-resistant Staphylococcus aureus. Blood cultures revealing no growth. Creatinine 0.9. Singh virus not detected. He remains on Augmentin, bronchodilators. Endocrine related with Xarelto. Continued on vancomycin. Progress note dated 05/09/2022. The patient is again seen today in room 464. He is on 4 L of oxygen. He is resting comfortably. His cough and shortness of breath are improved. He's not receiving any IV fluids. White count 17.9, hemoglobin 10.3, hematocrit 32.2, and platelet count 314,000. Sodium, potassium, chloride, and CO2 are all normal. Anion gap is normal. BUN is 27 with a creatinine of 0.9. There is methicillin-resistant staph aureus in the right heel culture. Objective - Vital Signs Vital signs: Vital Signs Temp 98.3 F 05/09/22 07:15 Pulse 74 05/09/22 11:37 Resp 14 05/09/22 08:00 BP 161/68 05/09/22 07:15 Pulse Ox 94 L 05/09/22 08:29 FiO2 Intake & Output 05/08/22 05/09/22 05/09/22 18:59 06:59 18:59 Output Total 700 Balance -700 Weight 102 kg 103.5 kg Output: Post Void Residual 700 Other: Voiding Method Diaper External Catheter Incontinent # Voids 1 - Exam No acute distress, oriented 3. Currently on 4 L. No respiratory distress. HEENT examination is grossly unremarkable. Neck supple. Full range of motion. No adenopathy thyromegaly or neck vein distention. Cardiovascular examination reveals regular rhythm rate. S1-S2 normal. No S3 or S4. No discernible murmur noted. Heart rate 74 bpm. Lungs reveal mild scattered rhonchi. Minimal crackles. No wheezes. Breath sounds equal. Saturations are in the mid to high 90s on 4 L. Abdomen soft bowel sounds are heard. No masses or tenderness. Extremities are intact. No cyanosis clubbing or edema. Skin is without rash or lesion. Neurologic examination is brief but nonfocal. - Labs CBC & Chem 7: 05/09/22 06:08 05/09/22 06:08 Labs: Abnormal Lab Results - Last 24 Hours (Table) 05/09/22 05/09/22 Range/Units 06:08 06:08 WBC 17.88 H (4.50-10.00) X 10*3/uL RBC 3.09 L (4.40-5.60) X 10*6/uL Hgb 10.3 L (13.0-17.0) g/dL Hct 32.2 L (39.6-50.0) % MCV 104.2 H (80.0-97.0) fL MCH 33.3 H (27.0-32.0) pg RDW 14.6 H (11.5-14.5) % Immature Gran # 0.10 H (0.00-0.04) X 10*3/uL Neutrophils # 15.45 H (1.80-7.70) X 10*3/uL Lymphocytes # 0.62 L (0.90-5.00) X 10*3/uL Monocytes # 1.43 H (0.20-1.00) X 10*3/uL Anion Gap 8.40 L (10.00-18.00) mmol/L BUN 27.2 H (9.0-27.0) mg/dL BUN/Creatinine Ratio 29.69 H (12.00-20.00) Ratio Calcium 8.1 L (8.7-10.3) mg/dL Microbiology - Last 24 Hours (Table) 05/05/22 08:18 Blood Culture - Preliminary Blood No Growth after 96 hours 05/05/22 08:22 Blood Culture - Preliminary Blood No Growth after 96 hours 05/03/22 15:09 Blood Culture - Preliminary Blood No Growth after 120 hours Assessment and Plan Assessment: Possible aspiration pneumonia. Possible ileus. History of adenocarcinoma of the prostate. Superficial venous thrombosis, right cephalic vein from level of mid bicep and upper forearm. Benign essential hypertension. Chronic weakness and failure to thrive. Status post debridement of heel for MRSA infection. Dysphagia secondary to CVA, S/P PEG tube placement. Plan: Plan dated 05/19/2022. The patient appears be doing well. We will continue to follow. The shortness of breath and cough have improved. We added breathing treatments, and antitussives. No additional recommendations are made. He's on 4 L. Saturations are excellent. Prognosis is guarded. He continues on antibiotics as per infectious diseases. Time with Patient: Less than 30
[2022-05-09] MEDS: ASPIRIN 81 MG PO SCH (14:06)
--- NOTE | 2022-05-09 14:09 | IR ---
PICC LINE PLACEMENT: HISTORY: Patient inadvertently pulled catheter out. Presents for replacement of PICC line for long-te rm antibiotic therapy and TPN therapy PROCEDURE: Ultrasound and fluoroscopic guidance of PICC line placement. COMPLICATIONS: None ANESTHESIA: 1. 1% Lidocaine locally. FINDINGS/TECHNIQUE: The procedure was explained to the patient. The risks, complications, benefits and alternatives were discussed and any questions were answered. Informed consent was obtained. The patient was placed supine on the fluoroscopic table and prepped and draped in the usual sterile [facility] ion. Utilizing a 21 gauge needle and sonographic and fluoroscopic guidance, access in the left basi lic vein was achieved and there is placement of a 0.018 guidewire. The vein is patent. A 4-F sheath was placed over the guidewire. The guidewire and dilator were removed and a 4-F. PICC line was plac ed through the sheath with the tip at the level of the SVC. The sheath was removed, the catheter was flushed and sutured into position. The patient was stable throughout the procedure and remained sta ble upon discharge from the Department of Radiology. The vein puncture was patent under ultrasound. A camejo scale image was obtained to document patency of the vein punctured. All elements of the maximal barrier technique were utilized. FLUOROSCOPY TIME: 0.1 minutes and 1 images submitted IMPRESSION: Successful PICC line placement under ultrasound and fluoroscopic guidance.
[2022-05-09] MEDS: CHOLECALCIFEROL 25 MCG (1000 IU) TABLET PO SCH (16:33)
[2022-05-09] MEDS: RIVAROXABAN 20 MG TAB PO SCH (16:33)
[2022-05-09] MEDS: HYDROcodone/APAP 5-325MG 1 EACH TAB PO PRN ×2 (16:33→22:52)
[2022-05-09] MEDS: METOCLOPRAMIDE 5 MG/ML 2 ML VIAL IVP SCH (16:33)
[2022-05-09] MEDS: CYANOCOBALAMIN 500 MCG TAB PO SCH (16:33)
--- NOTE | 2022-05-09 16:50 | P.PN ---
Subjective Progress Note Date: 05/09/22 Progress note dictation Date of service 05/09/[address] Iniguez. Patient seen and evaluated [id number] New event: Apparently the left arm PICC line has been dislodge it and was not effective with the swelling of the left upper arm. Treatment was held through the PICC line, and patient sent back to invasive radiology to have annual And patient received the new PICC line and they will be starting with the double-lumen for underlying TPN as well as vancomycin for his MRSA of the right heel. Patient also has aspiration pneumonia and he is receiving Augmentin 875 mg twice a day through the PEG tube which is intact with the drainage connected to. He had external catheter for the urine and connected to suction. Patient had still pain in the right heel and currently medicated. His left arm addressed with his nurse arm elevation with 2 pillows. And warm towels on the left arm for helping his effusion of the externalization of the IV fluid through the left arm. Laboratory today: WBC went up 17.88 and yesterday was 16.27, hemoglobin is 10.3 with hematocrit 32.2. Chemistry indicating that sodium 135 potassium 4.1 with chloride 106 carbon dioxide 20.7. His estimated EGFR for non- 80.9. Glucose was 83, calcium 8.1, vancomycin trough level 20.6 Sea virus PCR done on 05/07/2022 was negative. Vital sign Temperature 97.9 F oral. Pulse rate 80 per beat per minute respiratory rate 14/m nonlabored. Blood pressure 174/68 and oxygen saturation 92 low on 5 L nasal cannula. P atient seen by pulmonary Dr. Herrera. On exam Patient is conscious alert oriented is still able to answer the question with the underlying dysphagia, nothing by mouth and Dr. Dean decided with intraven ous nutrition with the TPN which will continue with the patient currently is nothing by mouth for 2 weeks at least. With the underlying nausea vomiting and ileus of the abdomen HEENT no change Oropharynx no change Chest decreased air entry bilaterally with no rales or wheezing, last chest x- ray on the May 07. On the antibiotic Heart regular sinus rhythm with the underlying history of atrial fibrillation paroxysmal Abdomen PEG tube in place and under dependent drainage and patient nothing by mouth with the underlying history of ileus. Extremities: No edema and positive pulses and decubitus of the heel has been the treatment done by Dr. Gerson Qiu the vascular surgeon which culture indicating MRSA and patient receiving the vancomycin IV and will be continued through the PIC line as well. Psychiatry stable Neurologically: No new events with the weakness of the right upper arm and the right lower extremities and speech impairment with the presence of bilateral acute CVA and also presence of left of parietofrontal enhancement 1.6. Assessment: #1 PICC line has been replaced after dislodging the previous line in the left upper arm with the underlying left arm swelling and edema due to subcutaneous infusion of the fluids. #2 ileus of the abdomen and the PEG tube has been drainage. #3 incontinent of urine and he had external device for collection and suction of the urine to keep him dry to avoid decubitus. #4 right heel decubitus with debridement and found MRSA. 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 #10 hypertension, atrial fibrillation, on Xarelto anticoagulant. #11 history of right superficial vein thrombosis secondary to IVs and has been improving and resolving gradually. Plan: #1 patient has been started on TPN #2 rest for this, with the dependent drainage of this, through the PEG tube. #3 left arm swelling had the edema and will be treated with warm compresses and elevation of the arm was 2 pillows. #4 continuing the antibiotic through the new PICC line. #5 waiting for the abdomen and the stomach ileus to be result and starts eating again enteral #6 still continue with the planning for prison once patient cleared from the above problem Objective - Vital Signs Vital signs: Vital Signs Temp 97.9 F 05/09/22 14:00 Pulse 70 05/09/22 16:07 Resp 14 05/09/22 14:00 BP 174/68 05/09/22 14:00 Pulse Ox 92 L 05/09/22 14:00 FiO2 Intake & Output 05/08/22 05/09/22 05/09/22 18:59 06:59 18:59 Output Total 700 Balance -700 Weight 102 kg 103.5 kg 103.5 kg Output: Post Void Residual 700 Other: Voiding Method Diaper External Catheter Incontinent # Voids 1 - Labs CBC & Chem 7: 05/09/22 06:08 05/09/22 06:08 Labs: Abnormal Lab Results - Last 24 Hours (Table) 05/09/22 05/09/22 Range/Units 06:08 06:08 WBC 17.88 H (4.50-10.00) X 10*3/uL RBC 3.09 L (4.40-5.60) X 10*6/uL Hgb 10.3 L (13.0-17.0) g/dL Hct 32.2 L (39.6-50.0) % MCV 104.2 H (80.0-97.0) fL MCH 33.3 H (27.0-32.0) pg RDW 14.6 H (11.5-14.5) % Immature Gran # 0.10 H (0.00-0.04) X 10*3/uL Neutrophils # 15.45 H (1.80-7.70) X 10*3/uL Lymphocytes # 0.62 L (0.90-5.00) X 10*3/uL Monocytes # 1.43 H (0.20-1.00) X 10*3/uL Anion Gap 8.40 L (10.00-18.00) mmol/L BUN 27.2 H (9.0-27.0) mg/dL BUN/Creatinine Ratio 29.69 H (12.00-20.00) Ratio Calcium 8.1 L (8.7-10.3) mg/dL Microbiology - Last 24 Hours (Table) 05/05/22 08:18 Blood Culture - Preliminary Blood No Growth after 96 hours 05/05/22 08:22 Blood Culture - Preliminary Blood No Growth after 96 hours 05/03/22 15:09 Blood Culture - Preliminary Blood No Growth after 120 hours
[2022-05-09] MEDS: FAT EMULSION 20% 250 ML IV SCH (17:40)
[2022-05-09] MEDS: SODIUM CHLORIDE 0.9% 1,000 ML IV SCH (17:52)
[2022-05-09] MEDS ORDERED: MVI, ADULT NO.4 WITH VIT K 10 ML, TRACE (CONC-1ML/DOSE) 1 ML in AMINO ACID 5%-D15W+LYTE... IV ONE ×3 (18:00)
[2022-05-09 18:37] LABS: Magnesium 2.1 mg/dL (1.6-2.3); Phosphorus 3.5 mg/dL (2.5-4.5)
[2022-05-09] MEDS: ATORVASTATIN 80 MG TAB PO SCH (22:18)
[2022-05-09] MEDS: MIRTAZAPINE 15 MG TAB PO SCH (22:18)
[2022-05-09] MEDS: MELATONIN 3 MG TABLET PO SCH (22:18)
[2022-05-10] MEDS: SODIUM CHLORIDE 0.9% 1,000 ML IV SCH ×2 (00:41→19:48)
[2022-05-10] MEDS: METOCLOPRAMIDE 5 MG/ML 2 ML VIAL IVP SCH ×4 (00:41→23:34)
[2022-05-10] MEDS: VANCOMYCIN 1,500 MG in SODIUM CHLORIDE 0.9% 500 ML 500 ML IVPB SCH ×2 (04:53→17:40)
[2022-05-10 07:53] LABS: ALT 127 U/L (4-49); AST 107 U/L (17-59); African American GFR (CKD) >90 (>60 ml/min/1.73 sqM); Albumin 1.7 g/dL (3.5-5.0); Albumin/Globulin Ratio 0.8; Alkaline Phosphatase 136 U/L (38-126); Anion Gap 2 mmol/L; Blood Urea Nitrogen 29 mg/dL (9-20); Calcium 7.8 mg/dL (8.4-10.2); Carbon Dioxide 22 mmol/L (22-30); Chloride 110 mmol/L (98-107); Globulin 2.2 g/dL; Glucose 109 mg/dL (74-99); Magnesium 2.1 mg/dL (1.6-2.3); Non-African American GFR(CKD) 82 (>60 ml/min/1.73 sqM); Phosphorus 3.4 mg/dL (2.5-4.5); Potassium 3.8 mmol/L (3.5-5.1); Sodium 134 mmol/L (137-145); Total Bilirubin 0.6 mg/dL (0.2-1.3); Total Protein 3.9 g/dL (6.3-8.2)
[2022-05-10 08:13] LABS: Ionized Calcium 5.5 mg/dL (4.5-5.3)
[2022-05-10] MEDS: FORMOTEROL FUMARATE 20 MCG/2 ML NEBU INHALATION SCH ×2 (08:15→21:14)
[2022-05-10] MEDS: IPRATROPIUM-ALBUTEROL 3 ML NEB INHALATION SCH ×4 (08:15→21:14)
[2022-05-10] MEDS: BUDESONIDE 1 MG/2 ML NEBU INHALATION SCH ×2 (08:15→21:14)
[2022-05-10] MEDS: PANTOPRAZOLE 40 MG/10 ML VIAL IVP SCH (08:40)
[2022-05-10] MEDS: TAMSULOSIN 0.4 MG CAP.ER.24H PO SCH (08:41)
[2022-05-10] MEDS: amLODIPine 5 MG TAB PO SCH (08:41)
[2022-05-10] MEDS: TROSPIUM CHLORIDE 20 MG TABLET PO SCH (08:41)
[2022-05-10] MEDS: lisinopriL 5 MG TAB PO SCH ×2 (08:41→22:08)
[2022-05-10] MEDS: AMIODARONE 200 MG TAB PO SCH (08:41)
[2022-05-10] MEDS: AMOXIC-POT CLAV 875-125MG 1 EACH TAB PO SCH ×2 (08:42→22:05)
[2022-05-10] MEDS: BENZONATATE 100 MG CAP PO SCH ×3 (08:42→22:06)
[2022-05-10 09:19] LABS: Phosphorus 3.5 mg/dL (2.4-5.1)
[2022-05-10] MEDS: FUROSEMIDE 10 MG/ML 2 ML VIAL IV SCH (12:21)
--- NOTE | 2022-05-10 13:47 | P.PN ---
Subjective Progress Note Date: 05/10/22 This is a 76-year-old white male admitted initially on 04/24/22, patient has been in the hospital now for just over 10 days. Patient was admitted mostly with weakness and failure to thrive, he had no active pulmonary symptoms whatsoever. P patient had multiple electrolyte dyscrasia, severe hyponatremia, he also had atient was seen by many consultants since admission including internal medicine, neurology, psychiatry, cardiology, general surgery, oncology, basically the patient is being evaluated for ileus, he had a PEG tube placed on 04/21 by general surgery, leukocytosis, patient also had worsening pressure ulcer to the right heel requiring debridement, and he had positive MRSA infection, this is being addressed by infectious disease on the case, and the patient is on vancomycin. At any rate the patient had a witnessed aspiration yesterday, apparently there was some issue with his PEG tube, patient aspirated and this was witnessed, hence this consult was initiated. Chest x-ray this morning showed mild interstitial density consistent most likely secondary to aspiration involving the right upper lobe and the left lower lobe. Nonetheless the patient is empirically covered with antibiotics, his feeding is presently on hold, and I recommended that his PEG tube gets placed on intermittent suction. Not much to be added from my perspective at this point. Patient is on 5 L nasal cannula and O2 sats 94%. He had a low-grade temp last night of 100.9 The patient is seen today 05/06/2022 in follow-up on the regular medical floor. He is currently resting comfortably in bed. Awake and alert in no acute distress. He is maintaining O2 saturations in the 90s on 4 L/m per nasal cannula. He does have a dry nonproductive cough. Patient was found to have MRSA on his right heel. He is currently in vancomycin and Augmentin. We're consulted for possible aspiration pneumonia. He did have a temperature 100.6. Currently 99 6. Bone scan revealed no areas of metastasis. The cultures reveal no growth. White count 18.6. Hemoglobin 11.3. The patient is seen today 05/07/2022 in follow-up on the regular medical floor. Awake and alert in no acute distress. Resting comfortably in bed. Maintaining O2 saturations in the 90s on 4 L/m per nasal cannula. He is having issues with increasing cough and congestion. Chest x-ray reveals a patchy left lower lobe and right upper lobe infiltrates with tiny effusions superimposed on background COPD. Stable compared to previous on 05/05/2022. He has normal saline at 50 MLS per hour. He is being treated for right heel wound that was positive for MRSA. Blood cultures reveal no growth. White count 16.2. Hemoglobin 10.0. Pl atelets 342. He is continued on vancomycin and Augmentin. Anticoagulated with Xarelto. Continued on bronchodilators. The patient is seen today 05/08/2022 in follow-up on the regular medical floor. He is currently resting in bed. Awake and alert in no acute distress. He continues with a loose nonproductive cough. No fever chills. Maintaining good O2 saturations in the mid 90s on 4 L/m per nasal cannula. Afebrile. Hemodynamically stable. Right heel culture positive for methicillin-resistant Staphylococcus aureus. Blood cultures revealing no growth. Creatinine 0.9. Singh virus not detected. He remains on Augmentin, bronchodilators. Endocrine related with Xarelto. Continued on vancomycin. The patient is seen today 05/10/2022 in follow-up on the regular medical floor.Is awake and alert in no acute distress. Resting comfortably in bed. Maintain O2 saturations in the 90s on 4 L nasal cannula. Afebrile.wound from the right heel was positive for MRSA. Blood cultures revealed no growth.sodium 134. Potassium 3.8. Bicarb 22. BUN 29. Creatinine 0.91. AST 107. ALT 127 .He is continued on antibiotics in the form of Augmentin and vancomycin. Anticoagulated with Xarelto. Remains on bronchodilators. Objective - Vital Signs Vital signs: Vital Signs Temp 99.0 F 05/10/22 08:00 Pulse 74 05/10/22 11:56 Resp 17 05/10/22 08:00 BP 182/75 05/10/22 08:00 Pulse Ox 93 L 05/10/22 08:18 FiO2 Intake & Output 05/09/22 05/10/22 05/10/22 18:59 06:59 18:59 Output Total 3000 325 Balance -3000 -325 Weight 103.5 kg 103.5 kg Output: Gastric Drainage 325 Urine 3000 Other: Voiding Method External Catheter External Catheter - Exam GENERAL DESCRIPTION: Awake, 76-year-old male, frail, weak, chronically ill. On 4 L nasal cannula. HEENT: Pale, nonicteric, no neck masses dry mucous membranes. NECK: No neck masses no JVD no stridor. LUNGS: Diminished breath sounds at the bases, minimal crackles at the right left base, no rhonchi and no wheezes HEART: Distant S1 and S2, no S3 gallop. ABDOMEN: Soft, no tenderness , guarding or rigidity, no organomegaly, PEG tube is noted. EXTREMITIES: Right heel wound dressing is noted otherwise unremarkable. SKIN: No rash, as noted above under extremities.. NEUROLOGICAL: Patient is alert awake, oriented 3, however he is chronically weak. - Labs CBC & Chem 7: 05/09/22 06:08 05/10/22 06:58 Labs: Abnormal Lab Results - Last 24 Hours (Table) 05/10/22 Range/Units 06:58 Sodium 134 L (137-145) mmol/L Chloride 110 H (98-107) mmol/L BUN 29 H (9-20) mg/dL Glucose 109 H (74-99) mg/dL Calcium 7.8 L (8.4-10.2) mg/dL Ionized Calcium Raquel 5.5 H (4.5-5.3) mg/dL AST 107 H (17-59) U/L ALT 127 H (4-49) U/L Alkaline Phosphatase 136 H (38-126) U/L Total Protein 3.9 L (6.3-8.2) g/dL Albumin 1.7 L (3.5-5.0) g/dL Microbiology - Last 24 Hours (Table) 05/05/22 08:18 Blood Culture - Preliminary Blood No Growth after 120 hours 05/05/22 08:22 Blood Culture - Preliminary Blood No Growth after 120 hours 05/03/22 15:09 Blood Culture - Final Blood No Growth after 144 hours Assessment and Plan Assessment: Possible aspiration pneumonia , nonetheless the patient is asymptomatic, and he is already empirically on antibiotics for his MRSA infection, that will be appropriate for his aspiration pneumonia. Follow-up chest x-ray continues to show limited patchy infiltrate in the left lower lobe and right upper lobe. Remains on vancomycin and Augmentin. COVID-19 screen negative. Possible ileus, being addressed by general surgery on the case. History of adenocarcinoma of the prostate. Superficial venous thrombosis, right cephalic vein from level of mid bicep and upper forearm, being addressed by vascular surgery on the case, no evidence of DVT Benign essential hypertension Chronic weakness and failure to thrive Status post debridement of heel for MRSA infection Dysphagia secondary to CVA and history of PEG tube placement Plan: The patient was seen and evaluated Labs and medications reviewed Antibiotics per ID services We will continue to follow I have personally seen and examined the patient, performed the documentation and the assessment and plan as written. Number of minutes spent on the visit: 10.
[2022-05-10] MEDS: ASPIRIN 81 MG PO SCH (14:28)
[2022-05-10] MEDS: guaiFENesin-DM 100-10MG/5ML 10 ML CUP PO PRN ×2 (14:28→22:06)
--- NOTE | 2022-05-10 14:28 | P.PN ---
Subjective Progress Note Date: 05/10/22 Principal diagnosis: lucent skull lesion In follow-up today patient is reporting that he doesn't feel very well. General malaise, poor energy, not able to tolerate oral intake, feels very weak. Objective - Vital Signs Vital signs: Vital Signs Temp 99.0 F 05/10/22 08:00 Pulse 74 05/10/22 11:56 Resp 17 05/10/22 08:00 BP 182/75 05/10/22 08:00 Pulse Ox 93 L 05/10/22 08:18 FiO2 Intake & Output 05/09/22 05/10/22 05/10/22 18:59 06:59 18:59 Output Total 3000 325 Balance -3000 -325 Weight 103.5 kg 103.5 kg Output: Gastric Drainage 325 Urine 3000 Other: Voiding Method External Catheter External Catheter - Constitutional General appearance: Present: average body habitus, cooperative, mild distress - EENT Eyes: Present: anicteric sclerae ENT: Present: hearing grossly normal - Respiratory Respiratory: bilateral: diminished, rales (scattered) - Cardiovascular Heart sounds: normal: S1, S2 - Peripheral edema leg Peripheral Edema: bilateral: 1+ - Neurologic Neurologic: Present: CNII-XII intact - Musculoskeletal Musculoskeletal: Present: generalized weakness - Psychiatric Psychiatric: Present: A&O x's 3, appropriate affect, intact judgment & insight - Labs CBC & Chem 7: 05/09/22 06:08 05/10/22 06:58 Labs: Abnormal Lab Results - Last 24 Hours (Table) 05/10/22 Range/Units 06:58 Sodium 134 L (137-145) mmol/L Chloride 110 H (98-107) mmol/L BUN 29 H (9-20) mg/dL Glucose 109 H (74-99) mg/dL Calcium 7.8 L (8.4-10.2) mg/dL Ionized Calcium Raquel 5.5 H (4.5-5.3) mg/dL AST 107 H (17-59) U/L ALT 127 H (4-49) U/L Alkaline Phosphatase 136 H (38-126) U/L Total Protein 3.9 L (6.3-8.2) g/dL Albumin 1.7 L (3.5-5.0) g/dL Microbiology - Last 24 Hours (Table) 05/05/22 08:18 Blood Culture - Preliminary Blood No Growth after 120 hours 05/05/22 08:22 Blood Culture - Preliminary Blood No Growth after 120 hours 05/03/22 15:09 Blood Culture - Final Blood No Growth after 144 hours Assessment and Plan (1) Bone lesion Current Visit: Yes Status: Chronic Priority: Medium Code(s): M89.9 - DISORDER OF BONE, UNSPECIFIED SNOMED Code(s): 036008456 Plan: Lucent bone lesion of the skull. Multiple myeloma workup is negative other than a small kappa chain elevation. This can be increased with kidney disease and acute infection. The skull lesion has been present for at least 8 years, it has increased in size slightly, no other lesions have been found on workup. Recommendation at this time is to monitor this lesion. If it becomes symptomatic then biopsy would be reasonable. No further workup from a Hematology standpoint at this time. Feel free to contact us with any questions or concerns. attests: I have seen and examined patient, performed H&P, developed impression and plan of care. Discussed with dictator. Agree with documentation, dictated as a scribe.
--- NOTE | 2022-05-10 15:54 | P.PN ---
Subjective Progress Note Date: 05/10/22 CHIEF COMPLAINT: Dysphagia HISTORY OF PRESENT ILLNESS: Patient is status post PEG tube placement 04/30/22. Patient had PEG tube to independent drainage. Patient had 325 mL of bilious output. He has a new PICC line in place TPN has been started for nutrition support. He is currently nothing by mouth. Patient denies any abdominal pain. He does still report some nausea. Reglan had been started yesterday. He is afebrile. WBC is up from 16-17.8 hemoglobin 10.3 platelets 314 sodium is 134 potassium 3.8 creatinine 0.91 LFTs are elevated AST 107 ALT 127 alk phos 136 total bili normal at 0.6 Patient seen and examined with Dr. groves PHYSICAL EXAM: VITAL SIGNS: Reviewed. GENERAL: Well-developed in no acute distress. ABDOMEN: Soft. Mildly distended. Nontender. PEG tube site clean dry and intact. PEG tube connected to Luo catheter bag with bilious output NEUROLOGIC: Alert and oriented. Cranial nerves II through XII grossly intact. ASSESSMENT: 1. Dysphagia status post PEG tube placement 2. Severe protein calorie malnutrition 3. History of CVA 4. Possible aspiration pneumonia 5. Dilation of stomach 6. Elevated LFTs PLAN: -Continue to hold tube feeds -Due to gaseous dilation of stomach continue PEG tube to independent drainage -Keep patient NPO -Continue Reglan -Repeat LFTs in a.m. -Continue supportive care -Continue antiemetics as needed Physician Collar Sewer note has been reviewed by physician. Signing provider agrees with the documented findings, assessment, and plan of care. Objective - Vital Signs Vital signs: Vital Signs Temp 99.0 F 05/10/22 08:00 Pulse 74 05/10/22 11:56 Resp 17 05/10/22 08:00 BP 182/75 05/10/22 08:00 Pulse Ox 93 L 05/10/22 08:18 FiO2 Intake & Output 05/09/22 05/10/22 05/10/22 18:59 06:59 18:59 Output Total 3000 325 Balance -3000 -325 Weight 103.5 kg 103.5 kg Output: Gastric Drainage 325 Urine 3000 Other: Voiding Method External Catheter External Catheter - Labs CBC & Chem 7: 05/09/22 06:08 05/10/22 06:58 Labs: Abnormal Lab Results - Last 24 Hours (Table) 05/10/22 Range/Units 06:58 Sodium 134 L (137-145) mmol/L Chloride 110 H (98-107) mmol/L BUN 29 H (9-20) mg/dL Glucose 109 H (74-99) mg/dL Calcium 7.8 L (8.4-10.2) mg/dL Ionized Calcium Raquel 5.5 H (4.5-5.3) mg/dL AST 107 H (17-59) U/L ALT 127 H (4-49) U/L Alkaline Phosphatase 136 H (38-126) U/L Total Protein 3.9 L (6.3-8.2) g/dL Albumin 1.7 L (3.5-5.0) g/dL Microbiology - Last 24 Hours (Table) 05/05/22 08:18 Blood Culture - Preliminary Blood No Growth after 120 hours 05/05/22 08:22 Blood Culture - Preliminary Blood No Growth after 120 hours 05/03/22 15:09 Blood Culture - Final Blood No Growth after 144 hours
[2022-05-10] MEDS: COLLAGENASE 250 UNIT/GM OINTMENT 30 GM TUBE TOPICAL SCH ×2 (17:18→22:08)
[2022-05-10] MEDS: CHOLECALCIFEROL 25 MCG (1000 IU) TABLET PO SCH (17:41)
[2022-05-10] MEDS: RIVAROXABAN 20 MG TAB PO SCH (17:41)
[2022-05-10] MEDS: CYANOCOBALAMIN 500 MCG TAB PO SCH (17:41)
[2022-05-10] MEDS: ATORVASTATIN 80 MG TAB PO SCH (22:05)
[2022-05-10] MEDS: MELATONIN 3 MG TABLET PO SCH (22:06)
[2022-05-10] MEDS: MIRTAZAPINE 15 MG TAB PO SCH (22:06)
[2022-05-10] MEDS: ACETAMINOPHEN TAB 325 MG TAB PO PRN (22:11)
[2022-05-10] MEDS: 1: MVI, ADULT NO.4 WITH VIT K 10 ML, TRACE (CONC-1ML/DOSE) 1 ML in AMINO ACID 5%-D15W+LY IV SCH ×3 (22:24)
--- NOTE | 2022-05-11 02:09 | PN ---
PROGRESS NOTE DATE OF SERVICE: 05/10/2022 A 76-year-old white male, . LOCATION: Room #464, bed 1, 4 [facility]. NEW DATA: HE IS A FULL CODE. He is 6 feet 3 inches height, weight 103.5 kg, BSA 2.32 m2, BMI 28.5 kg/m2. ALLERGIES: No known allergies. SUBJECTIVE: The patient is seen today [id number] and discussed with his and the patient and his nurse. His temperature is low grade 99.4 F oral, and pulse rate 75 beats per minute, regular sinus, respiratory rate 16, and blood pressure 163/73 with the pulse ox 92% on 5 L. His blood pressure earlier was high and 182/75, and mean blood pressure 110 and his pulse ox 93% on 4 L. His white count still was elevated yesterday on 05/09/2022 and the blood count again will be done tomorrow. His electrolyte indicating sodium 134, potassium 3.8, chloride 110, carbon dioxide 22, and his anion gap is 2, with the presence of BUN 29, creatinine 0.91, and his EGFR is 82. His blood sugar 109, and calcium 7.8; however, ionized calcium is 5.5, phosphorus 3.4, and magnesium 2.1, stable. His liver enzyme is elevated with the AST 107, ALT 127, and alkaline phosphatase 138. His total protein is low 3.9, and albumin 1.7 with the underlying protein-calorie deficiency and his globulin is 2.2, and ratio is 0.8. His triglyceride was done yesterday and was 49.5. His vancomycin yesterday 20.6. The patient is seen and evaluated [id number]. He was conscious, alert. He is still feeling sick. He has dry mouth and we asked the nursing staff for glycerin swab or lemon swab in the oropharynx with the underlying oral intake. OBJECTIVE: HEENT: Head normocephalic, atraumatic. The pupil was equal, reactive. Conjunctivae were pink. Sclerae were nonicteric. Oropharynx is dry. NECK: Supple. No JVD. CHEST: Scattered rhonchi with decreased air entry and he is receiving inhalation therapy. HEART: Regular sinus rhythm with a history of underlying paroxysmal atrial fib, so far no conversion. ABDOMEN: Soft. No tenderness. He had a PEG tube in place and he had no pain with deep palpation. No suprapubic pain. He had external Luo catheter. EXTREMITIES: On the lower extremities, he has no edema and positive pulses. He had debridement of the right heel with the underlying decubitus. He had in the extremities of the left arm, PICC line out and now changed to a newer one and he has elevation of the left elbow on 2 pillows and compressor to help with resolution of the soft tissue edema. The right elbow soft tissue edema has been gradually improving. He had generalized edema of the lower abdomen and thigh with sequestration of fluid as well as he had the PICC line has been connected to draining from the stomach for resting the stomach to retain his bowel sound back again with the presence of ileus at this time by order of Dr. Dean, the surgeon. Also he has the external catheter for the urine for drainage to suction. He infused with the PICC line with the TPN and lipids as ordered by Dr. Dean as well as he is receiving the Vancomycin and he had the bilateral lumen in the PICC line for infusion with the edema of the lower extremities probably indicating the presence of low nutritional status with the [id number] protein deficiency as well as the albumin deficiency. ASSESSMENT: 1. The patient is still in guarded situation and he has underlying multiple medical problems. Currently, we are waiting for the bowel to regain activities and with the underlying ileus seen today by Dr. Renee, who is covering for Dr. Dean this weekend. Meanwhile, he has underlying antibiotic he received with the vancomycin as well as Augmentin, the vancomycin through the PICC line and the Augmentin suspension through the PEG tube. The patient is awake, alert, and able to answer with whispering with affecting the vocal cord and he has cough and we started him today, he could not accommodate capsules because of the cough initiation and with the dysphagia and at this time we are going to give him the Robitussin elixir 15 mL q.i.d. for the cough production. 2. He had aspiration pneumonia and is currently improving with the radiation. He had decreased air entry and scattered rhonchi. No wheezes. 3. The underlying abnormal liver enzyme and with the probability that due to the use of the TPN and Intralipid. However, his nutritional status is severe and he started to have extracellular edema associated with the hypoproteinemia and hypoalbuminemia as well. The underlying cerebrovascular accident acute with the underlying bilateral hemispheric cerebrovascular accident well as he has right hemiparesis on the right upper and lower extremities with the decreased movement, still not recovering. The patient has a past history of prostate radiation for malignancy; however, PSA was controlled 0.01 and no evidence of recurrence. He had laboratory testing done by Dr. Pathak, the Hematology and Oncology, and so far we do not have laboratory return of his order to exclude multiple myeloma with the enhancement of the left frontoparietal 1.6 cm and the Hematology Oncology following the patient as well as the Pulmonary, Dr. Herrera as well as previously the Cardiology has been following the patient as well initially, also the Neurology; however at this time, no note from neurological followup. The patient in still guarded situation after event happening with the prolonged hospitalization. However, we do not have other choices at this time until we continue following until the stomach and the abdomen and the small bowel start to work with the underlying ileus. PLAN: We will continue the current treatment. We will repeat the laboratory including the liver function and CBC as well as the BMP and we will check on the protein-calorie deficiency as well and obtaining a prealbumin as well. Continue the feeding tube and monitoring the liver function test. MMKAELA / KATHYA: [id number] /
[2022-05-11] MEDS: VANCOMYCIN 1,500 MG in SODIUM CHLORIDE 0.9% 500 ML 500 ML IVPB SCH ×2 (04:25→15:28)
[2022-05-11 07:24] LABS: Basophils % (A) 0 %; Eosinophils # (A) 0.3 k/uL (0-0.7); Eosinophils % (A) 1 %; HCT 31.5 % (39.0-53.0); HGB 10.4 gm/dL (13.0-17.5); Hypochromasia Slight; Lymphocytes # (A) 0.5 k/uL (1.0-4.8); Lymphocytes % (A) 3 %; MCH 33.5 pg (25.0-35.0); MCV 101.4 fL (80.0-100.0); Macrocytosis Slight; Mean Platelet Volume 7.6; Monocytes % (A) 5 %; Neutrophils # (A) 16.8 k/uL (1.3-7.7); Neutrophils % (A) 90 %; Platelet Count 353 k/uL (150-450); RDW 13.2 % (11.5-15.5); WBC 18.7 k/uL (3.8-10.6)
[2022-05-11] MEDS: 1: MVI, ADULT NO.4 WITH VIT K 10 ML, TRACE (CONC-1ML/DOSE) 1 ML in AMINO ACID 5%-D15W+LY IV SCH ×9 (08:14→16:08)
[2022-05-11] MEDS: IPRATROPIUM-ALBUTEROL 3 ML NEB INHALATION SCH ×4 (08:42→19:59)
[2022-05-11] MEDS: BUDESONIDE 1 MG/2 ML NEBU INHALATION SCH ×2 (08:42→19:59)
[2022-05-11] MEDS: FORMOTEROL FUMARATE 20 MCG/2 ML NEBU INHALATION SCH ×2 (08:42→19:59)
--- NOTE | 2022-05-11 11:02 | P.PN ---
Progress Note - Text Progress Note Date: 05/11/22 Patient [place] stable. Per nursing notes there is been no significant bowel movements. On exam vital signs are stable. Abdomen soft. Ileus. Patient can receive PEG tube to drainage.
[2022-05-11] MEDS: BENZONATATE 100 MG CAP PO SCH ×3 (11:25→21:36)
[2022-05-11] MEDS: lisinopriL 5 MG TAB PO SCH (11:40)
[2022-05-11] MEDS: TROSPIUM CHLORIDE 20 MG TABLET PO SCH (11:40)
[2022-05-11] MEDS: ASPIRIN 81 MG PO SCH (11:40)
[2022-05-11] MEDS: TAMSULOSIN 0.4 MG CAP.ER.24H PO SCH (11:40)
[2022-05-11] MEDS: AMIODARONE 200 MG TAB PO SCH (11:40)
[2022-05-11] MEDS: FUROSEMIDE 10 MG/ML 2 ML VIAL IV SCH (11:41)
[2022-05-11] MEDS: METOCLOPRAMIDE 5 MG/ML 2 ML VIAL IVP SCH ×2 (11:41→15:27)
[2022-05-11] MEDS: amLODIPine 5 MG TAB PO SCH (11:41)
[2022-05-11] MEDS: SODIUM CHLORIDE 0.9% 1,000 ML IV SCH (11:42)
[2022-05-11] MEDS: PANTOPRAZOLE 40 MG/10 ML VIAL IVP SCH (11:42)
[2022-05-11 11:53] LABS: African American GFR (CKD) 93.7 (60.0-200.0); Albumin 1.8 g/dL (3.8-4.9); Albumin/Globulin Ratio 0.88 (1.60-3.17); Anion Gap 10.2 mmol/L (10.00-18.00); BUN/Creat Ratio 30.64 Ratio (12.00-20.00); Blood Urea Nitrogen 28.1 mg/dL (9.0-27.0); Calcium 8.2 mg/dL (8.7-10.3); Globulin 2.1 g/dL (1.6-3.3); Non-African American GFR(CKD) 80.8 (60.0-200.0); Potassium 3.7 mmol/L (3.5-5.5); Total Bilirubin 0.5 mg/dL (0.30-1.20); Total Protein 3.9 g/dL (6.2-8.2)
[2022-05-11] MEDS: guaiFENesin-DM 100-10MG/5ML 10 ML CUP PO PRN ×3 (12:06→21:37)
--- NOTE | 2022-05-11 13:58 | P.PN ---
Subjective Progress Note Date: 05/11/22 Dictation on progress note date of service 05/11/2022Friday. Dictation by Dr. Iniguez. Patient seen and evaluated [id number] and evaluated his abdomen as well discussed with his and the patient Patient is conscious alert oriented and he had hoarseness of voice and significant cough is not resolved. He has a vocal cord abnormalities and the ENT requested however the denied the consult because it is outpatient exam. With a history of stroke. Patient has also aspiration pneumonia with vomiting earlier and last Friday to Friday, seen by the pulmonary and critical care and the chest x-ray was indicating that but the patient has already antibiotic covering the aspiration pneumonitis. 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 Crain infectious disease consultation and also he had The placed on the left arm, Patient subsequently pulled out his PICC line incidentally and he had to be replaced with another PICC line and restart again antibiotic however this time they put double-lumen which was helpful when Dr. Dean decided the patient with prolonged discoloration and severe hypoproteinemia as well as nutritional protein calorie deficiency started on TPN. Patient initially had dysphagia and loss of 20 [facility] the prison and progressive inability to speak with the hoarseness of the voice. Subsequently he had a PEG tube placement by Dr. Dean complicated with ileus and feeling nausea and he vomited once. Today found that his drainage of the PEG tube contain acidemic teen with the superficial probably erythema of this, Dr. Charles GI placed patient on Protonix now patient on Protonix 40 mg daily by the gastroenterology Dr. Charles and the nurse" With the presence of acidemic teen will start Carafate 1 g every 6 hours be crushed and diluted and pass-through the stomach. Patient seen by Dr. Zeinab sullivan who is covering for Dr. Parham on the weekend with the underlying still ileus. Patient seen today [id number] and discussed with the as well He had severe with teen deficiency with the extravasation of the fluid extracellular and cold edema now on the back size in the legs. And the blood pressure is high The ULISES inhibitor with the suspicious of cough with the possible with the of ALLERGIC reaction as well I did DC the lisinopril as well as the Vasotec for monitoring the blood pressure and replaced with hydralazine 10 mg every 6 hours for attempts get the blood pressure in the average of 140 systolic. His vital sign: Temperature 98.0 F oral, heart rate 77 bpm regular sinus with a history of atrial fibrillation paroxysmal no new event happen his respiratory rate 18/m, blood pressure 176/73. Still is pulse ox 92% on 6 L. On exam: Conscious alert aware of prominent problem still coughing with no improvement. He had his natural teeth. Neck was supple no JVD no thyromegaly no lymphadenopathy trachea midline. Chest decreased air entry bilaterally with the normal breath sound Heart: Regular sinus rhythm Abdomen soft no bowel sounds and no tenderness but he feels bloated. Extremities: He had edema interstitial through the lower extremities and the buttocks area with the extra position of fluid and the hypoproteinemia hypoalb uminemia. Psychiatry stable with the currently treatment Neurologically stable no new exacerbation of his stroke with the presence by the MRI bilateral hemispheric stroke acute as well as the enhancement of left prior to frontal 1.6 cm and that was consulted the hematology oncology Dr. Pathak and he ordered laboratories however I could not find results of that So far to extensive fluid MM. No evidence of metastasis by the bone scan. Laboratories: WBC 18.7 with mild elevation from 05/09/22, his hemoglobin was stable at 10.4, Chemistry: Sodium 138, potassium 3.7, CO2 20, iron 28.1 and creatinine 0.9, EGFR 80.8, glucose 122 stable Abnormal liver enzyme AST 100, a LT 132, alk phos 162, albumin 1.8 and total protein 3.9 and albumin 4.5 with the normal range 18-42. Assessment and plan Patient still and guarded prognosis Multiple medical problem, patient is still awake alert and he had weakness in the right hemiparesis with the bilateral hemispheric CVA Dysphagia, ileus, currently on TPN, acidemic teen of the stomach Renal function stable controlled and stable Heart function still stable with the paroxysmal atrial fibrillation but currently is sinus. PICC line profusing was double-lumen using 1 for the vancomycin and the 1 for the TPN Patient also on Augmentin through the PEG tube. We'll increase his Lasix to 40 mg once a day We'll discontinue lisinopril, Vasotec with the participation for cough and not holding his blood pressure Start hydralazine 10 mg every 6 hours for attempts to control the blood pressure is well I have the gastroenterology Dr. Charles to evaluate in the future is elevated liver enzyme with the presence of the TPN, however patient has severe protein calorie deficiency and no other alternative and ileus of the small bowel and stomach. Objective - Vital Signs Vital signs: Vital Signs Temp 98.0 F 05/11/22 08:00 Pulse 84 05/11/22 12:10 Resp 18 05/11/22 08:00 BP 176/73 05/11/22 08:00 Pulse Ox 92 L 05/11/22 08:00 FiO2 Intake & Output 05/10/22 05/11/22 05/11/22 18:59 06:59 18:59 Output Total 1225 900 Balance -1225 -900 Weight 103.5 kg 106 kg Output: Gastric Drainage 325 Urine 900 900 Other: Voiding Method External Catheter External Catheter External Catheter - Labs CBC & Chem 7: 05/11/22 06:34 05/11/22 06:34 Labs: Abnormal Lab Results - Last 24 Hours (Table) 05/11/22 05/11/22 05/11/22 Range/Units 06:34 06:34 06:34 WBC 18.7 H (3.8-10.6) k/uL RBC 3.10 L (4.30-5.90) m/uL Hgb 10.4 L (13.0-17.5) gm/dL Hct 31.5 L (39.0-53.0) % MCV 101.4 H (80.0-100.0) fL Neutrophils # 16.8 H (1.3-7.7) k/uL Lymphocytes # 0.5 L (1.0-4.8) k/uL BUN 28.1 H (9.0-27.0) mg/dL BUN/Creatinine Ratio 30.64 H (12.00-20.00) Ratio Glucose 122 H (70-110) mg/dL Calcium 8.2 L (8.7-10.3) mg/dL AST 100 H (14-35) U/L ALT 132 H (10-49) U/L Alkaline Phosphatase 162 H (41-126) U/L Total Protein 3.9 L (6.2-8.2) g/dL Albumin 1.8 L (3.8-4.9) g/dL Albumin/Globulin Ratio 0.88 L (1.60-3.17) g/dL Prealbumin 4.5 L (18.0-42.0) mg/dL Microbiology - Last 24 Hours (Table) 05/05/22 08:22 Blood Culture - Final Blood No Growth after 144 hours 05/05/22 08:18 Blood Culture - Final Blood No Growth after 144 hours
[2022-05-11 14:39] LABS: Bilirubin, Conjugated 0.22 mg/dL (0.20-0.40); Bilirubin,Unconjugated 0.32 mg/dL (0.20-1.00); Magnesium 2.1 mg/dL (1.5-2.4); Phosphorus 2.9 mg/dL (2.4-5.1); Total Bilirubin 0.5 mg/dL (0.30-1.20)
[2022-05-11] MEDS ORDERED: VANCOMYCIN TROUGH DUE 1 EACH MISC MISCELLANE ONE (15:00)
[2022-05-11] MEDS: RIVAROXABAN 20 MG TAB PO SCH (15:26)
[2022-05-11] MEDS: ACETAMINOPHEN TAB 325 MG TAB PO PRN (15:26)
[2022-05-11] MEDS: CHOLECALCIFEROL 25 MCG (1000 IU) TABLET PO SCH (15:26)
[2022-05-11] MEDS: CYANOCOBALAMIN 500 MCG TAB PO SCH (15:27)
[2022-05-11] MEDS: hydrALAZINE HCL 20 MG/ML 1 ML VIAL IVP PRN (15:27)
[2022-05-11] MEDS: SUCRALFATE 1 GM TAB PO SCH (15:27)
[2022-05-11] MEDS: COLLAGENASE 250 UNIT/GM OINTMENT 30 GM TUBE TOPICAL SCH (21:35)
[2022-05-11] MEDS: MIRTAZAPINE 15 MG TAB PO SCH (21:35)
[2022-05-11] MEDS: ATORVASTATIN 80 MG TAB PO SCH (21:35)
[2022-05-12] MEDS: SUCRALFATE 1 GM TAB PO SCH ×4 (00:06→17:40)
[2022-05-12] MEDS: METOCLOPRAMIDE 5 MG/ML 2 ML VIAL IVP SCH ×3 (00:06→17:40)
[2022-05-12] MEDS: VANCOMYCIN 1,250 MG in SODIUM CHLORIDE 0.9% 250 ML IVPB SCH ×2 (03:50→17:40)
[2022-05-12 07:41] LABS: African American GFR (CKD) >90 (>60 ml/min/1.73 sqM); Anion Gap 2 mmol/L; Calcium 7.7 mg/dL (8.4-10.2); Carbon Dioxide 24 mmol/L (22-30); Chloride 112 mmol/L (98-107); Glucose 129 mg/dL (74-99); Magnesium 2.1 mg/dL (1.6-2.3); Non-African American GFR(CKD) 84 (>60 ml/min/1.73 sqM); Phosphorus 2.8 mg/dL (2.5-4.5); Potassium 3.4 mmol/L (3.5-5.1); Sodium 138 mmol/L (137-145)
[2022-05-12 08:10] LABS: Blood Urea Nitrogen 30 mg/dL (9-20)
[2022-05-12] MEDS ORDERED: Potassium Replacement Protocol 1 EACH MISC MISCELLANE PRN (08:14)
[2022-05-12] MEDS: BUDESONIDE 1 MG/2 ML NEBU INHALATION SCH ×2 (08:29→21:10)
[2022-05-12] MEDS: IPRATROPIUM-ALBUTEROL 3 ML NEB INHALATION SCH ×4 (08:29→21:10)
[2022-05-12] MEDS: FORMOTEROL FUMARATE 20 MCG/2 ML NEBU INHALATION SCH ×2 (08:29→21:10)
[2022-05-12] MEDS: 1: MVI, ADULT NO.4 WITH VIT K 10 ML, TRACE (CONC-1ML/DOSE) 1 ML in AMINO ACID 5%-D15W+LY IV SCH ×3 (09:44)
[2022-05-12] MEDS: SODIUM CHLORIDE 0.9% 1,000 ML IV SCH (09:46)
[2022-05-12] MEDS: POTASSIUM CHLORIDE 20 MEQ in WATER FOR INJECTION 1 100ML.BAG IVPB SCH ×2 (09:50→12:43)
[2022-05-12] MEDS: hydrALAZINE HCL 20 MG/ML 1 ML VIAL IVP PRN ×2 (09:53→17:37)
[2022-05-12] MEDS: PANTOPRAZOLE 40 MG/10 ML VIAL IVP SCH (09:53)
[2022-05-12] MEDS: TROSPIUM CHLORIDE 20 MG TABLET PO SCH (10:05)
[2022-05-12] MEDS: TAMSULOSIN 0.4 MG CAP.ER.24H PO SCH (10:05)
[2022-05-12] MEDS: AMIODARONE 200 MG TAB PO SCH (10:05)
[2022-05-12] MEDS: FUROSEMIDE 10 MG/ML 4 ML VIAL IV SCH (10:06)
[2022-05-12] MEDS: BENZONATATE 100 MG CAP PO SCH ×3 (10:06→21:56)
[2022-05-12] MEDS: amLODIPine 5 MG TAB PO SCH (10:06)
[2022-05-12] MEDS: guaiFENesin-DM 100-10MG/5ML 10 ML CUP PO PRN ×2 (10:46→17:40)
--- NOTE | 2022-05-12 10:53 | P.PN ---
Progress Note - Text Progress Note Date: 05/12/22 Patient is sleeping in his bed. On exam vital signs appear stable. Abdomen soft. PEG tube is to drainage. Patient's PEG tube drain 350 mL last shift. Ileus. Patient will continue to receive supportive care.
[2022-05-12] MEDS: ASPIRIN 81 MG PO SCH (12:43)
--- NOTE | 2022-05-12 14:25 | P.PN ---
Subjective Progress Note Date: 05/12/22 Progress note date of service 05/12/[address] Iniguez anticoagulant 0 also anticoagulant 02 Patient seen and evaluated [id number] Patient has been moved to Agatha chair Had a bowel movement and positive bowel sounds, still continue nothing by mouth until seen by Dr. Parham tomorrow and starting the feeding antral through the PEG tube. Patient on TPN for now. Patient has edema of the trunk leg due to hypoproteinemia. He has increased intravascular volume associated with blood pressure elevation has been treated with Lasix and had a good urine output with a normal renal function. And also covered with hydralazine. His heart rate ranging between 86-96 but still normal sinus rhythm. His vital signs as recorded at 7:57 AM temperature 98.5 F oral, pulse rate 86 bpm, respiratory rate 17 per minute, and the blood pressure 175/81 with a mean blood pressure 112, he is still on 5 L nasal cannula with the oxygen saturation 91. And they tried to adjust his oxygen according to the oxygen saturation. On the exam: Head normocephalic and atraumatic pupils equal reactive no acute changes Oropharynx still able to communicate and whispering with abnormality of the vocal cord. And choking Chest lung no wheezes no rhonchi's with decreased air entry with a history of aspiration pneumonia. On Augmentin Heart regular sinus rhythm with a history of paroxysmal atrial fibrillation on anticoagulant Abdomen PEG tube in place with drainage dependent and started to have a bowel sounds and he had a bowel movement Extremities he had debridement of the right heel decubitus was positive for MRSA and he is on vancomycin. He has extracellular fluid with the severe hypoproteinemia and protein calorie deficiency and the prealbumin is 5 only. Currently he is on TPN and Intralipid. Psychiatry stable Neurologically no progression with the underlying right sided hemiparesis, and bilateral hemispheric embolizations through with the underlying embolic manifestation as well as he has 1.6 cm enhancement in the left parietal frontal over the brain in the MRI seen by Dr. Walters with no evidence of metastasis however we don't have the conclusion on the workup for multiple myelosis. Assessment: #1 start of the bowel movement as well as the bowel sounds which is good sign. #2 severe protein calorie deficiency with the prealbumin is 5 and low protein and low albumin associated with generalized edema #3 highly her attention with the volume expansion #4 cough which we did stop all ULISES inhibitor 6 included the probability of association with the vocal cords. #5 presentation with dysphagia with weight loss more than 20 pounds in 2 weeks in the [facility] and rehab #6 status post PEG tube placement oral by small bowel ileus, currently on TPN and nothing by mouth #7 right arm superficial vein thrombosis treated symptomatically and seen by vascular surgeon Dr. Gerson Qiu #8 right heel decubitus underwent debridement found to be MRSA by microbiology, treated by Dr. Crain infectious disease with the vancomycin she through the PICC line #9 left arm PICC line dislodge it/ruled out with externalization of the fluid in the left arm and forearm including the elbow, patient underwent repeat PICC line by invasive radiology currently working with the double lumen tube which she used for antibiotic as well as intravenous nutritional supplement. #10 inability to walk with the stroke. Hypoglycemia is controlled with the current treatment Plan: Patient will be seen tomorrow by Dr. Dean and hopefully will start the antral feeding through the PEG tube meanwhile the nutritional assessment with the TPN Clearance [facility] after a stability of the feeding. Continuation of the antibiotic by the infectious disease Continue the anticoagulant Xarelto Continuing the follow-up with the ENT as outpatient Continue follow-up with the neurology as outpatient Continue follow-up with the cardiology has outpatient Continue pulmonary as outpatient Continue antibiotic per infectious disease Objective - Vital Signs Vital signs: Vital Signs Temp 98.5 F 05/12/22 07:57 Pulse 92 05/12/22 12:49 Resp 17 05/12/22 07:57 BP 175/81 05/12/22 07:57 Pulse Ox 91 L 05/12/22 07:57 FiO2 Intake & Output 05/11/22 05/12/22 05/12/22 18:59 06:59 18:59 Output Total 1600 751 Balance -1600 -751 Weight 103 kg Output: Gastric Drainage 600 350 Urine 1000 400 Stool 1 Other: Voiding Method External Catheter External Catheter Incontinent # Bowel Movements 1 - Labs CBC & Chem 7: 05/11/22 06:34 05/12/22 06:58 Labs: Abnormal Lab Results - Last 24 Hours (Table) 05/12/22 Range/Units 06:58 Potassium 3.4 L (3.5-5.1) mmol/L Chloride 112 H (98-107) mmol/L BUN 30 H (9-20) mg/dL Glucose 129 H (74-99) mg/dL Calcium 7.7 L (8.4-10.2) mg/dL Microbiology - Last 24 Hours (Table) 05/05/22 08:22 Blood Culture - Final Blood No Growth after 144 hours 05/05/22 08:18 Blood Culture - Final Blood No Growth after 144 hours
--- NOTE | 2022-05-12 16:37 | P.PN ---
Subjective Progress Note Date: 05/08/22 Principal diagnosis: Right heel infected pressure ulcer Patient is a 76 year old male with multiple comorbidities long-term resident noticed to have a worsening pressure ulcer to the right heel status post debridement culture positive for MRSA. On today's evaluation that is 05/08/2022 the patient remains to be afebrile, the patient is breathing comfortably on a 4 L nasal cannula, the patient denies having any chest pain the patient did have some cough but not begin any sputum and no abdominal pain and no diarrhea Objective - Vital Signs Vital signs: Vital Signs Temp 97.8 F 05/08/22 07:28 Pulse 88 05/08/22 11:52 Resp 18 05/08/22 11:52 BP 165/79 05/08/22 07:28 Pulse Ox 93 L 05/08/22 07:28 FiO2 Intake & Output 05/07/22 05/08/22 05/08/22 18:59 06:59 18:59 Intake Total 240 Balance 240 Weight 102 kg 102 kg 102 kg Intake: Tube Feeding 240 Other: Voiding Method Diaper Diaper Incontinent Incontinent # Voids 3 1 - Exam GENERAL DESCRIPTION: An elderly male lying in bed in no distress RESPIRATORY SYSTEM: Unlabored breathing , decreased breath sounds at bases HEART: S1 S2 regular rate and rhythm , ABDOMEN: Soft , no tenderness EXTREMITIES: Right he is currently dressed no drainage on the dressing - Labs CBC & Chem 7: 05/11/22 06:34 05/12/22 06:58 Labs: Abnormal Lab Results - Last 24 Hours (Table) 05/04/22 05/04/22 Range/Units 07:04 07:04 TIBC 143 L (228-460) ug/dL Transferrin 102.0 L (204.0-354.0) mg/dL Free [place] LC, Quant 4.14 H (0.33-1.94) mg/dL Microbiology - Last 24 Hours (Table) 05/05/22 08:22 Blood Culture - Preliminary Blood No Growth after 72 hours 05/05/22 08:18 Blood Culture - Preliminary Blood No Growth after 72 hours 05/03/22 15:09 Blood Culture - Preliminary Blood No Growth after 96 hours Assessment and Plan (1) Open wound of right heel Current Visit: Yes Status: Acute Code(s): S91.301A - UNSPECIFIED OPEN WOUND, RIGHT FOOT, INITIAL ENCOUNTER SNOMED Code(s): 177852768 (2) MRSA (methicillin resistant staph aureus) culture positive Current Visit: Yes Status: Acute Code(s): Z22.322 - CARRIER OR SUSPECTED CARRIER OF METHICILLIN RESIS STAPH SNOMED Code(s): 042119956 Plan: 1patient with right heel infected pressure ulcer in this patient with status post surgical debridement did not mention any extension down to the bone however will be discussed further with the vascular surgery culture now showing presumptive MRSA patient did have a low-grade fever and mild elevated white count with a left shift. 2blood cultures are so far negative, White count is trending down down to 16,000 yesterday no CBC was done today 3Patient currently being treated with the vancomycin for his right heel infection while watching his kidney function closely and monitor clinical course closely
--- NOTE | 2022-05-12 16:39 | P.PN ---
Subjective Progress Note Date: 05/09/22 Principal diagnosis: Right heel infected pressure ulcer Patient is a 76 year old male with multiple comorbidities custodial resident noticed to have a worsening pressure ulcer to the right heel status post debridement culture positive for MRSA. On today's evaluation that is 05/09/2022 the patient continues to be afebrile, the patient is breathing comfortably and remains to be on a 4 L nasal cannula, the patient denies having any chest pain the patient did have occasional cough but not able to bring up any sputum has been coming of some vomiting and unable to tolerate his tube feeds Objective - Vital Signs Vital signs: Vital Signs Temp 97.9 F 05/09/22 14:00 Pulse 80 05/09/22 14:00 Resp 14 05/09/22 14:00 BP 174/68 05/09/22 14:00 Pulse Ox 92 L 05/09/22 14:00 FiO2 Intake & Output 05/08/22 05/09/22 05/09/22 18:59 06:59 18:59 Output Total 700 Balance -700 Weight 102 kg 103.5 kg 103.5 kg Output: Post Void Residual 700 Other: Voiding Method Diaper External Catheter Incontinent # Voids 1 - Exam GENERAL DESCRIPTION: An elderly male lying in bed in no distress RESPIRATORY SYSTEM: Unlabored breathing , decreased breath sounds at bases HEART: S1 S2 regular rate and rhythm , ABDOMEN: Soft , no tenderness EXTREMITIES: Right he is currently dressed no drainage on the dressing - Labs CBC & Chem 7: 05/11/22 06:34 05/12/22 06:58 Labs: Abnormal Lab Results - Last 24 Hours (Table) 05/09/22 05/09/22 Range/Units 06:08 06:08 WBC 17.88 H (4.50-10.00) X 10*3/uL RBC 3.09 L (4.40-5.60) X 10*6/uL Hgb 10.3 L (13.0-17.0) g/dL Hct 32.2 L (39.6-50.0) % MCV 104.2 H (80.0-97.0) fL MCH 33.3 H (27.0-32.0) pg RDW 14.6 H (11.5-14.5) % Immature Gran # 0.10 H (0.00-0.04) X 10*3/uL Neutrophils # 15.45 H (1.80-7.70) X 10*3/uL Lymphocytes # 0.62 L (0.90-5.00) X 10*3/uL Monocytes # 1.43 H (0.20-1.00) X 10*3/uL Anion Gap 8.40 L (10.00-18.00) mmol/L BUN 27.2 H (9.0-27.0) mg/dL BUN/Creatinine Ratio 29.69 H (12.00-20.00) Ratio Calcium 8.1 L (8.7-10.3) mg/dL Microbiology - Last 24 Hours (Table) 05/05/22 08:18 Blood Culture - Preliminary Blood No Growth after 96 hours 05/05/22 08:22 Blood Culture - Preliminary Blood No Growth after 96 hours 05/03/22 15:09 Blood Culture - Preliminary Blood No Growth after 120 hours Assessment and Plan (1) Open wound of right heel Current Visit: Yes Status: Acute Code(s): S91.301A - UNSPECIFIED OPEN WOUND, RIGHT FOOT, INITIAL ENCOUNTER SNOMED Code(s): 078829105 (2) MRSA (methicillin resistant staph aureus) culture positive Current Visit: Yes Status: Acute Code(s): Z22.322 - CARRIER OR SUSPECTED CARRIER OF METHICILLIN RESIS STAPH SNOMED Code(s): 797973829 Plan: 1patient with right heel infected pressure ulcer in this patient with status post surgical debridement did not mention any extension down to the bone however will be discussed further with the vascular surgery culture now showing presumptive MRSA patient did have a low-grade fever and mild elevated white count with a left shift. 2blood cultures remains to be negative, White count is slightly up today and will monitor closely 3Patient to continue vancomycin for his right heel infection while watching his kidney function has been normal Time with Patient: Less than 30
--- NOTE | 2022-05-12 16:41 | P.PN ---
Subjective Progress Note Date: 05/10/22 Principal diagnosis: Right heel infected pressure ulcer Patient is a 76 year old male with multiple comorbidities custodial resident noticed to have a worsening pressure ulcer to the right heel status post debridement culture positive for MRSA. On today's evaluation that is 05/10/2022 the patient, denies any fever or chillsthe patient is breathing slightly comfortably still requiring 4 L nasal cannula, the patient denies having any chest pain the patient did have occasional cough but not able to bring up any sputum, no abdominal pain Objective - Vital Signs Vital signs: Vital Signs Temp 99.0 F 05/10/22 08:00 Pulse 74 05/10/22 11:56 Resp 17 05/10/22 08:00 BP 182/75 05/10/22 08:00 Pulse Ox 93 L 05/10/22 08:18 FiO2 Intake & Output 05/09/22 05/10/22 05/10/22 18:59 06:59 18:59 Output Total 3000 325 Balance -3000 -325 Weight 103.5 kg 103.5 kg Output: Gastric Drainage 325 Urine 3000 Other: Voiding Method External Catheter External Catheter - Exam GENERAL DESCRIPTION: An elderly male lying in bed in no distress RESPIRATORY SYSTEM: Unlabored breathing , decreased breath sounds at bases HEART: S1 S2 regular rate and rhythm , ABDOMEN: Soft , no tenderness EXTREMITIES: Right he is currently dressed no drainage on the dressing - Labs CBC & Chem 7: 05/11/22 06:34 05/12/22 06:58 Labs: Abnormal Lab Results - Last 24 Hours (Table) 05/10/22 Range/Units 06:58 Sodium 134 L (137-145) mmol/L Chloride 110 H (98-107) mmol/L BUN 29 H (9-20) mg/dL Glucose 109 H (74-99) mg/dL Calcium 7.8 L (8.4-10.2) mg/dL Ionized Calcium Raquel 5.5 H (4.5-5.3) mg/dL AST 107 H (17-59) U/L ALT 127 H (4-49) U/L Alkaline Phosphatase 136 H (38-126) U/L Total Protein 3.9 L (6.3-8.2) g/dL Albumin 1.7 L (3.5-5.0) g/dL Microbiology - Last 24 Hours (Table) 05/05/22 08:18 Blood Culture - Preliminary Blood No Growth after 120 hours 05/05/22 08:22 Blood Culture - Preliminary Blood No Growth after 120 hours 05/03/22 15:09 Blood Culture - Final Blood No Growth after 144 hours Assessment and Plan (1) Open wound of right heel Current Visit: Yes Status: Acute Code(s): S91.301A - UNSPECIFIED OPEN WOUND, RIGHT FOOT, INITIAL ENCOUNTER SNOMED Code(s): 715758962 (2) MRSA (methicillin resistant staph aureus) culture positive Current Visit: Yes Status: Acute Code(s): Z22.322 - CARRIER OR SUSPECTED CARRIER OF METHICILLIN RESIS STAPH SNOMED Code(s): 197743427 Plan: 1patient with right heel infected pressure ulcer in this patient with status post surgical debridement did not mention any extension down to the bone however will be discussed further with the vascular surgery culture now showing presumptive MRSA patient did have a low-grade fever and mild elevated white count with a left shift. 2blood cultures remains to be negative, 3Patient to continue vancomycin for his right heel infection local wound care with the Santyl followed by moist dressing and keep the area off the pressure Time with Patient: Less than 30
--- NOTE | 2022-05-12 16:42 | P.PN ---
Subjective Progress Note Date: 05/11/22 Principal diagnosis: Right heel infected pressure ulcer Patient is a 76 year old male with multiple comorbidities [facility] resident noticed to have a worsening pressure ulcer to the right heel status post debridement culture positive for MRSA. On today's evaluation that is 05/11/2022 the patient remains to be afebrile, the patient complaining of some shortness of breath and the patient is still requiring 4 L nasal cannula, the patient denies having any chest pain the patient did have occasional cough but unable to bring up any sputum, no abdominal pain and no diarrhea Objective - Vital Signs Vital signs: Vital Signs Temp 100.5 F H 05/11/22 14:59 Pulse 86 05/11/22 15:53 Resp 18 05/11/22 14:59 BP 187/74 05/11/22 14:59 Pulse Ox 94 L 05/11/22 14:59 FiO2 Intake & Output 05/10/22 05/11/22 05/11/22 18:59 06:59 18:59 Output Total 4924 984 5661 Balance -1225 -900 -1600 Weight 103.5 kg 106 kg Output: Gastric Drainage 325 600 Urine 183 183 9955 Other: Voiding Method External Catheter External Catheter External Catheter - Exam GENERAL DESCRIPTION: An elderly male lying in bed in no distress RESPIRATORY SYSTEM: Unlabored breathing , decreased breath sounds at bases HEART: S1 S2 regular rate and rhythm , ABDOMEN: Soft , no tenderness EXTREMITIES: Right he is currently dressed no drainage on the dressing - Labs CBC & Chem 7: 05/11/22 06:34 05/12/22 06:58 Labs: Abnormal Lab Results - Last 24 Hours (Table) 05/11/22 05/11/22 05/11/22 Range/Units 06:34 06:34 06:34 WBC 18.7 H (3.8-10.6) k/uL RBC 3.10 L (4.30-5.90) m/uL Hgb 10.4 L (13.0-17.5) gm/dL Hct 31.5 L (39.0-53.0) % MCV 101.4 H (80.0-100.0) fL Neutrophils # 16.8 H (1.3-7.7) k/uL Lymphocytes # 0.5 L (1.0-4.8) k/uL BUN 28.1 H (9.0-27.0) mg/dL BUN/Creatinine Ratio 30.64 H (12.00-20.00) Ratio Glucose 122 H (70-110) mg/dL Calcium 8.2 L (8.7-10.3) mg/dL AST 100 H (14-35) U/L ALT 132 H (10-49) U/L Alkaline Phosphatase 162 H (41-126) U/L Total Protein 3.9 L (6.2-8.2) g/dL Albumin 1.8 L (3.8-4.9) g/dL Albumin/Globulin Ratio 0.88 L (1.60-3.17) g/dL Prealbumin 4.5 L (18.0-42.0) mg/dL Microbiology - Last 24 Hours (Table) 05/05/22 08:22 Blood Culture - Final Blood No Growth after 144 hours 05/05/22 08:18 Blood Culture - Final Blood No Growth after 144 hours Assessment and Plan (1) Open wound of right heel Current Visit: Yes Status: Acute Code(s): S91.301A - UNSPECIFIED OPEN WOUND, RIGHT FOOT, INITIAL ENCOUNTER SNOMED Code(s): 847613466 (2) MRSA (methicillin resistant staph aureus) culture positive Current Visit: Yes Status: Acute Code(s): Z22.322 - CARRIER OR SUSPECTED CARRIER OF METHICILLIN RESIS STAPH SNOMED Code(s): 293362911 Plan: 1patient with right heel infected pressure ulcer in this patient with status post surgical debridement did not mention any extension down to the bone however will be discussed further with the vascular surgery culture now showing presumptive MRSA patient did have a low-grade fever and mild elevated white count with a left shift. 2blood cultures remains to be negative, 3Patient to continue vancomycin for his right heel infection while watching his kidney function closely, patient will continue local wound care with the Santyl followed by moist dressing and keep the area off the pressure Time with Patient: Less than 30
--- NOTE | 2022-05-12 16:43 | P.PN ---
Subjective Progress Note Date: 05/12/22 Principal diagnosis: Right heel infected pressure ulcer Patient is a 76 year old male with multiple comorbidities correction resident noticed to have a worsening pressure ulcer to the right heel status post debridement culture positive for MRSA. On today's evaluation that is 05/12/2022 the patient continues to be afebrile, the patient denies any chest pain has been complaining of some cough but not bring up any sputum no further nausea or vomiting no abdominal pain and the patient did have a bowel movement per the nursing staff Objective - Vital Signs Vital signs: Vital Signs Temp 98.4 F 05/12/22 14:00 Pulse 94 05/12/22 14:00 Resp 18 05/12/22 14:00 BP 162/92 05/12/22 14:00 Pulse Ox 92 L 05/12/22 14:00 FiO2 Intake & Output 05/11/22 05/12/22 05/12/22 18:59 06:59 18:59 Output Total 1600 751 Balance -1600 -751 Weight 103 kg Output: Gastric Drainage 600 350 Urine 1000 400 Stool 1 Other: Voiding Method External Catheter External Catheter Incontinent # Bowel Movements 1 - Exam GENERAL DESCRIPTION: An elderly male lying in bed in no distress RESPIRATORY SYSTEM: Unlabored breathing , decreased breath sounds at bases HEART: S1 S2 regular rate and rhythm , ABDOMEN: Soft , no tenderness EXTREMITIES: Right he is currently dressed no drainage on the dressing - Labs CBC & Chem 7: 05/11/22 06:34 05/12/22 06:58 Labs: Abnormal Lab Results - Last 24 Hours (Table) 05/12/22 Range/Units 06:58 Potassium 3.4 L (3.5-5.1) mmol/L Chloride 112 H (98-107) mmol/L BUN 30 H (9-20) mg/dL Glucose 129 H (74-99) mg/dL Calcium 7.7 L (8.4-10.2) mg/dL Assessment and Plan (1) Open wound of right heel Current Visit: Yes Status: Acute Code(s): S91.301A - UNSPECIFIED OPEN WOUND, RIGHT FOOT, INITIAL ENCOUNTER SNOMED Code(s): 534675834 (2) MRSA (methicillin resistant staph aureus) culture positive Current Visit: Yes Status: Acute Code(s): Z22.322 - CARRIER OR SUSPECTED CARRIER OF METHICILLIN RESIS STAPH SNOMED Code(s): 763193615 Plan: 1patient with right heel infected pressure ulcer in this patient with status post surgical debridement did not mention any extension down to the bone however will be discussed further with the vascular surgery culture now showing presumptive MRSA patient did have a low-grade fever and mild elevated white count with a left shift. 2 Patient to continue vancomycin for his right heel infection while watching his kidney function closely, patient will continue local wound care with the Santyl followed by moist dressing and keep the area off the pressure 3-the patient white count remains to be elevated slightly concerning we will go ahead and repeat his chest x-ray CRP pro calcitonin and adjust his antibiotics further on the basis of these testing Time with Patient: Less than 30
[2022-05-12] MEDS: ACETAMINOPHEN TAB 325 MG TAB PO PRN (17:38)
[2022-05-12] MEDS: CHOLECALCIFEROL 25 MCG (1000 IU) TABLET PO SCH (17:39)
[2022-05-12] MEDS: CYANOCOBALAMIN 500 MCG TAB PO SCH (17:39)
[2022-05-12] MEDS: RIVAROXABAN 20 MG TAB PO SCH (17:50)
[2022-05-12] MEDS: MELATONIN 3 MG TABLET PO SCH (21:43)
[2022-05-12] MEDS: ATORVASTATIN 80 MG TAB PO SCH (21:43)
[2022-05-12] MEDS: COLLAGENASE 250 UNIT/GM OINTMENT 30 GM TUBE TOPICAL SCH (21:43)
[2022-05-12] MEDS: MIRTAZAPINE 15 MG TAB PO SCH (21:43)
[2022-05-13] MEDS: SUCRALFATE 1 GM TAB PO SCH ×3 (00:08→13:08)
[2022-05-13] MEDS: guaiFENesin-DM 100-10MG/5ML 10 ML CUP PO PRN (00:08)
[2022-05-13] MEDS: METOCLOPRAMIDE 5 MG/ML 2 ML VIAL IVP SCH ×3 (00:09→18:13)
[2022-05-13] MEDS: 1: MVI, ADULT NO.4 WITH VIT K 10 ML, TRACE (CONC-1ML/DOSE) 1 ML in AMINO ACID 5%-D15W+LY IV SCH ×6 (01:00→18:41)
[2022-05-13] MEDS: hydrALAZINE HCL 20 MG/ML 1 ML VIAL IVP PRN (03:44)
[2022-05-13] MEDS: VANCOMYCIN 1,250 MG in SODIUM CHLORIDE 0.9% 250 ML IVPB SCH (03:44)
[2022-05-13] MEDS: SODIUM CHLORIDE 0.9% 1,000 ML IV SCH (03:52)
[2022-05-13 05:31] LABS: African American GFR (CKD) >90 (>60 ml/min/1.73 sqM); Anion Gap 2 mmol/L; Blood Urea Nitrogen 32 mg/dL (9-20); Carbon Dioxide 23 mmol/L (22-30); Chloride 111 mmol/L (98-107); Glucose 113 mg/dL (74-99); Non-African American GFR(CKD) 82 (>60 ml/min/1.73 sqM); Potassium 3.5 mmol/L (3.5-5.1); Sodium 136 mmol/L (137-145)
[2022-05-13 05:57] LABS: C Reactive Protein 18.1 mg/dL (<1.0)
[2022-05-13 06:06] LABS: ALT 253 U/L (4-49); AST 326 U/L (17-59); Albumin 1.7 g/dL (3.5-5.0); Albumin/Globulin Ratio 0.8; Alkaline Phosphatase 203 U/L (38-126); Globulin 2.2 g/dL; Magnesium 2.1 mg/dL (1.6-2.3); Total Bilirubin 0.7 mg/dL (0.2-1.3); Total Protein 3.9 g/dL (6.3-8.2)
[2022-05-13] MEDS: BUDESONIDE 1 MG/2 ML NEBU INHALATION SCH ×2 (07:26→21:20)
[2022-05-13] MEDS: IPRATROPIUM-ALBUTEROL 3 ML NEB INHALATION SCH ×4 (07:27→21:20)
[2022-05-13] MEDS: FORMOTEROL FUMARATE 20 MCG/2 ML NEBU INHALATION SCH ×2 (07:27→21:20)
--- NOTE | 2022-05-13 08:02 | XR ---
EXAMINATION TYPE: XR chest 1V portable DATE OF EXAM: 05/13/2022 6:44 AM COMPARISON: Chest radiographs from 05/07/2022 TECHNIQUE: XR chest 1V portable Portable AP radiograph of the chest. CLINICAL INDICATION:Male, 76 years old with history of On the aspiration pneumonia; FINDINGS: Lungs/Pleura: New airspace opacities predominantly in upper lobes and left perihilar region but also affecting the lower lobes to lesser degree. There is no evidence of pleural effusion, or pneumothorax . Pulmonary vascularity: Unremarkable. Heart/mediastinum: Cardiomediastinal silhouette is unremarkable. Musculoskeletal: No acute osseous pathology. Findings: Left PICC with tip at the superior vena cava. IMPRESSION: New airspace opacities predominantly in the upper lungs and left perihilar region. Correlate for pneu monia.
[2022-05-13] MEDS: AMIODARONE 200 MG TAB PO SCH (08:41)
[2022-05-13] MEDS: POTASSIUM CHLORIDE 20 MEQ in WATER FOR INJECTION 1 100ML.BAG IVPB SCH ×2 (08:41→12:53)
[2022-05-13] MEDS: PANTOPRAZOLE 40 MG/10 ML VIAL IVP SCH (08:41)
[2022-05-13] MEDS: FUROSEMIDE 10 MG/ML 4 ML VIAL IV SCH (08:41)
[2022-05-13] MEDS: amLODIPine 5 MG TAB PO SCH (08:41)
[2022-05-13] MEDS: TROSPIUM CHLORIDE 20 MG TABLET PO SCH (08:41)
[2022-05-13] MEDS: TAMSULOSIN 0.4 MG CAP.ER.24H PO SCH (08:41)
[2022-05-13] MEDS: BENZONATATE 100 MG CAP PO SCH (08:42)
[2022-05-13 09:16] LABS: Albumin 1.9 g/dL (3.8-4.9); Albumin/Globulin Ratio 0.95 (1.60-3.17); Bilirubin, Conjugated 0.28 mg/dL (0.20-0.40); Bilirubin,Unconjugated 0.22 mg/dL (0.20-1.00); Total Bilirubin 0.5 mg/dL (0.30-1.20); Total Protein 3.9 g/dL (6.2-8.2)
[2022-05-13 09:19] LABS: Basophils # (A) 0.04 X 10*3/uL (0.00-0.10); Basophils % (A) 0.2 %; Eosinophils % (A) 1.4 %; HCT 29.4 % (39.6-50.0); HGB 9.5 g/dL (13.0-17.0); Immature Grans, Automated 0.7 %; Lymphocytes # (A) 0.58 X 10*3/uL (0.90-5.00); Lymphocytes % (A) 2.7 %; MCH 32.5 pg (27.0-32.0); MCHC 32.3 g/dL (32.0-37.0); MCV 100.7 fL (80.0-97.0); Mean Platelet Volume 9.8 fL (9.5-12.2); Monocytes # (A) 1.15 X 10*3/uL (0.20-1.00); Monocytes % (A) 5.3 %; NRBC Per 100 WBC 0 /100 WBCS (0.0-0.0); Neutrophils # (A) 19.37 X 10*3/uL (1.80-7.70); Neutrophils % (A) 89.7 %; Platelet Count 360 X 10*3/uL (140-440); RBC 2.92 X 10*6/uL (4.40-5.60); RDW 14.6 % (11.5-14.5)
[2022-05-13] MEDS ORDERED: IOPAMIDOL CONTRAST (ORAL USE) VIAL PO PRN (11:34)
--- NOTE | 2022-05-13 12:31 | P.PN ---
Subjective Progress Note Date: 05/13/22 CHIEF COMPLAINT: Dysphagia HISTORY OF PRESENT ILLNESS: Patient is status post PEG tube placement 04/30/22. Patient had PEG tube to independent drainage. Patient had 150 mL of bilious output. Patient denies any abdominal pain. He still reports being nauseated. No vomiting. He still feels that his abdomen is bloated. He does report coughing. Afebrile. WBC is up from 18.7-21.6 hemoglobin 9.5 platelets 360 sodium is 136 potassium 3.5 creatinine 0.91 LFTs are trending upwards AST 326 ALT to 53 alk phos 203 total bili 0.7 albumin 1.7 chest x-ray new airspace opacities predominantly in the upper lungs and left perihilar region. Correlate for pneumonia PHYSICAL EXAM: VITAL SIGNS: Reviewed. GENERAL: Well-developed in no acute distress. ABDOMEN: Soft. Mildly distended. Nontender. PEG tube site clean dry and intact. PEG tube connected to Luo catheter bag with bilious output NEUROLOGIC: Alert and oriented. Cranial nerves II through XII grossly intact. ASSESSMENT: 1. Dysphagia status post PEG tube placement 2. Severe protein calorie malnutrition 3. History of CVA 4. Possible aspiration pneumonia 5. Dilation of stomach 6. Elevated LFTs 7. Leukocytosis PLAN: -Continue to hold tube feeds -Due to gaseous dilation of stomach continue PEG tube to independent drainage -Computed tomography scan abdomen and pelvis with oral and IV contrast ordered for further evaluation of abdominal distention and dilation of stomach -Keep patient NPO -Continue Reglan -Repeat LFTs in a.m. -Continue supportive care -Continue antiemetics as needed -Continue TPN for nutrition support Physician Booky note has been reviewed by physician. Signing provider agrees with the documented findings, assessment, and plan of care. I have personally seen and examined the patient, reviewed the [employer] /PAs history, exam and MDM and agree with the assessment and plan as written. Based on total visit time, I have performed more than 50% of the visit. As above: Patient still having some nausea. White blood cell count elevated today. Denies abdominal pain. Will order CT abdomen and pelvis. Objective - Vital Signs Vital signs: Vital Signs Temp 98.6 F 05/13/22 07:40 Pulse 100 05/13/22 11:05 Resp 18 05/13/22 08:40 BP 165/84 05/13/22 07:40 Pulse Ox 95 05/13/22 07:40 FiO2 Intake & Output 05/12/22 05/13/22 05/13/22 18:59 06:59 18:59 Intake Total 1000 Output Total 1650 Balance -650 Weight 102 kg Intake: Intake, IV Titration 1000 Amount Amino Acid 5%-D15w+Lytes* 1000 E* 1,000 ml @ 60 mls/hr IV .BY DURATION NOE Rx#: [id number] Output: Gastric Drainage 350 Urine 1300 Other: Voiding Method Incontinent Incontinent Incontinent # Bowel Movements 1 - Labs CBC & Chem 7: 05/13/22 04:23 05/13/22 04:23 Labs: Abnormal Lab Results - Last 24 Hours (Table) 05/13/22 05/13/22 05/13/22 Range/Units 04:23 04:23 04:23 WBC 21.60 H (4.50-10.00) X 10*3/uL RBC 2.92 L (4.40-5.60) X 10*6/uL Hgb 9.5 L (13.0-17.0) g/dL Hct 29.4 L (39.6-50.0) % MCV 100.7 H (80.0-97.0) fL MCH 32.5 H (27.0-32.0) pg RDW 14.6 H (11.5-14.5) % Immature Gran # 0.16 H (0.00-0.04) X 10*3/uL Neutrophils # 19.37 H (1.80-7.70) X 10*3/uL Lymphocytes # 0.58 L (0.90-5.00) X 10*3/uL Monocytes # 1.15 H (0.20-1.00) X 10*3/uL Sodium (137-145) mmol/L Chloride (98-107) mmol/L BUN (9-20) mg/dL Glucose (74-99) mg/dL Calcium (8.4-10.2) mg/dL AST 312 H (14-35) U/L ALT 270 H (10-49) U/L Alkaline Phosphatase 209 H (41-126) U/L C-Reactive Protein (<1.0) mg/dL Total Protein 3.9 L (6.2-8.2) g/dL Albumin 1.9 L (3.8-4.9) g/dL Albumin/Globulin Ratio 0.95 L (1.60-3.17) g/dL Procalcitonin 0.49 H (0.02-0.09) ng/mL 05/13/22 Range/Units 04:23 WBC (4.50-10.00) X 10*3/uL RBC (4.40-5.60) X 10*6/uL Hgb (13.0-17.0) g/dL Hct (39.6-50.0) % MCV (80.0-97.0) fL MCH (27.0-32.0) pg RDW (11.5-14.5) % Immature Gran # (0.00-0.04) X 10*3/uL Neutrophils # (1.80-7.70) X 10*3/uL Lymphocytes # (0.90-5.00) X 10*3/uL Monocytes # (0.20-1.00) X 10*3/uL Sodium 136 L (137-145) mmol/L Chloride 111 H (98-107) mmol/L BUN 32 H (9-20) mg/dL Glucose 113 H (74-99) mg/dL Calcium 8.0 L (8.4-10.2) mg/dL AST 326 H (14-35) U/L ALT 253 H (10-49) U/L Alkaline Phosphatase 203 H (41-126) U/L C-Reactive Protein 18.1 H (<1.0) mg/dL Total Protein 3.9 L (6.2-8.2) g/dL Albumin 1.7 L (3.8-4.9) g/dL Albumin/Globulin Ratio (1.60-3.17) g/dL Procalcitonin (0.02-0.09) ng/mL
[2022-05-13] MEDS: PIPERACILLIN-TAZOBACTAM 3.375 GM in SODIUM CHLORIDE 0.9% 100 ML IVPB SCH ×2 (13:08→20:40)
[2022-05-13] MEDS: ASPIRIN 81 MG PO SCH (13:08)
--- NOTE | 2022-05-13 13:16 | P.PN ---
Subjective Progress Note Date: 05/13/22 Dictation on the progress note date of service 05/13/[address] Iniguez Discussed with the patient and his . Patient seen by Dr. Dean and plan for CT of the abdomen. Patient injury chair awake alert able to move his right upper extremities. Vital sign: Temperature 98.6 F oral heart rate 100 bpm and respiratory rate 18/m with cough, blood pressure 165/84 with the oxygen saturation 95% on 5 L. On exam: Patient's conscious alert oriented able to cough and pricks some phlegm. Head was normocephalic and atraumatic pupils equal reactive conjunctiva was pink sclera nonicteric Oropharynx he had natural disease and still whispering. Neck was supple no JVD no thyromegaly no lymphadenopathy trachea midline Chest: Decreased air entry bilateral with a history of aspiration pneumonia, chest x-ray was new patchy infiltrate with the associated aspiration Dr. Crain did change his antibiotic to Zosyn and tetracycline and discontinuation of the vancomycin as well as Augmentin. Heart: Regular sinus rhythm with a history of atrial fibrillation paroxysmal saw for stable Abdomen and positive bowel sounds and he will be going tomorrow per Dr. Parham for the computed tomography scan of the abdomen prior to starting the enteral feeding. Patient had mild liver enzyme elevation as well as PEG tube with the dependent drainage. And the history of ileus. Extremities: He had edema pitting edema with the extra cellular edema from low protein low albumin and prealbumin is 5 with severe nutritional protein calorie deficiency. Psychiatry stable Neurology stable with some movement in the right hemispheric weakness due to the CVA with a history of bilateral acute CVA with showering with the emboli. Assessment: #1 aspiration pneumonia progressed and Dr. Crain change antibiotic #2 we'll ask the pulmonary to look at him as well to see if any else needed to be done #3 Dr. Dean will go the CT tomorrow of the abdomen and hopefully starting the enteral feeding patient currently on TPN and Intralipid with the underlying nutritional deficiency #4 protein calorie deficiency #5 right heel debridement by Dr. Qiu vascular surgeon, microbiology was indicating at that time staph aureus MRSA. #6 still continual cough with the abnormalities of the vocal cord. Plan: We'll continue the current treatment and will wait for the results of the computed tomography scan as well as for further decision in the start of the PEG tube feeding as well as TPN discontinuation. Laboratory: WBC 21.6 with the elevation his hemoglobin 9.5 and the hematocrit 29.4., Platelet is 360 . Chemistry sodium 136 and a potassium 3.5 and estimated glomerular filtration rate for non- 82 and his blood sugar fairly well controlled 113 His liver enzymes went up to 326 AST, 253 a LT, alk phos 203, C-reactive protein 18.1, Total protein 3.9 and albumin 1.7 and he troponin 0.49 still elevated. We'll be requesting also the gastroenterology Dr. Charles to look at the patient for on these abnormal liver enzyme aspect. Objective - Vital Signs Vital signs: Vital Signs Temp 98.6 F 05/13/22 07:40 Pulse 100 05/13/22 11:05 Resp 18 05/13/22 08:40 BP 165/84 05/13/22 07:40 Pulse Ox 95 05/13/22 07:40 FiO2 Intake & Output 05/12/22 05/13/22 05/13/22 18:59 06:59 18:59 Intake Total 1000 Output Total 1650 Balance -650 Weight 102 kg Intake: Intake, IV Titration 1000 Amount Amino Acid 5%-D15w+Lytes* 1000 E* 1,000 ml @ 60 mls/hr IV .BY DURATION NOE Rx#: [id number] Output: Gastric Drainage 350 Urine 1300 Other: Voiding Method Incontinent Incontinent Incontinent # Bowel Movements 1 - Labs CBC & Chem 7: 05/13/22 04:23 05/13/22 04:23 Labs: Abnormal Lab Results - Last 24 Hours (Table) 05/13/22 05/13/22 05/13/22 Range/Units 04:23 04:23 04:23 WBC 21.60 H (4.50-10.00) X 10*3/uL RBC 2.92 L (4.40-5.60) X 10*6/uL Hgb 9.5 L (13.0-17.0) g/dL Hct 29.4 L (39.6-50.0) % MCV 100.7 H (80.0-97.0) fL MCH 32.5 H (27.0-32.0) pg RDW 14.6 H (11.5-14.5) % Immature Gran # 0.16 H (0.00-0.04) X 10*3/uL Neutrophils # 19.37 H (1.80-7.70) X 10*3/uL Lymphocytes # 0.58 L (0.90-5.00) X 10*3/uL Monocytes # 1.15 H (0.20-1.00) X 10*3/uL Sodium (137-145) mmol/L Chloride (98-107) mmol/L BUN (9-20) mg/dL Glucose (74-99) mg/dL Calcium (8.4-10.2) mg/dL AST 312 H (14-35) U/L ALT 270 H (10-49) U/L Alkaline Phosphatase 209 H (41-126) U/L C-Reactive Protein (<1.0) mg/dL Total Protein 3.9 L (6.2-8.2) g/dL Albumin 1.9 L (3.8-4.9) g/dL Albumin/Globulin Ratio 0.95 L (1.60-3.17) g/dL Procalcitonin 0.49 H (0.02-0.09) ng/mL 05/13/22 Range/Units 04:23 WBC (4.50-10.00) X 10*3/uL RBC (4.40-5.60) X 10*6/uL Hgb (13.0-17.0) g/dL Hct (39.6-50.0) % MCV (80.0-97.0) fL MCH (27.0-32.0) pg RDW (11.5-14.5) % Immature Gran # (0.00-0.04) X 10*3/uL Neutrophils # (1.80-7.70) X 10*3/uL Lymphocytes # (0.90-5.00) X 10*3/uL Monocytes # (0.20-1.00) X 10*3/uL Sodium 136 L (137-145) mmol/L Chloride 111 H (98-107) mmol/L BUN 32 H (9-20) mg/dL Glucose 113 H (74-99) mg/dL Calcium 8.0 L (8.4-10.2) mg/dL AST 326 H (14-35) U/L ALT 253 H (10-49) U/L Alkaline Phosphatase 203 H (41-126) U/L C-Reactive Protein 18.1 H (<1.0) mg/dL Total Protein 3.9 L (6.2-8.2) g/dL Albumin 1.7 L (3.8-4.9) g/dL Albumin/Globulin Ratio (1.60-3.17) g/dL Procalcitonin (0.02-0.09) ng/mL
[2022-05-13] MEDS ORDERED: 1: MVI, ADULT NO.4 WITH VIT K 10 ML, TRACE (CONC-1ML/DOSE) 1 ML in AMINO ACID 5%-D15W+LY IV SCH ×3 (17:00)
[2022-05-13] MEDS: FAT EMULSION 20% 250 ML IV SCH (18:40)
--- NOTE | 2022-05-13 18:51 | P.PN ---
Subjective Progress Note Date: 05/13/22 On 05 21 2022, patient is doing well. No specific complaints afebrile hemodynamically stable. The patient is on 5 L of oxygen by nasal And impulsivity minimum of 90%. We were involved in the patient's care because of an aspiration pneumonia. The patient has done well. No significant respiratory difficulties for now. The patient was discontinued and the patient is being considered for discharge today. The echoes at 21 with a hemoglobin of 9.5 and sodium was 136. The sodium is at 136 and the potassium levels at 3.4 with a BUN of 32 with a creatinine of 0.9. The patient is a very he with MRSA infection and the patient remains on vancomycin and ID on the case Objective - Vital Signs Vital signs: Vital Signs Temp 98.6 F 05/13/22 07:40 Pulse 100 05/13/22 11:05 Resp 18 05/13/22 08:40 BP 165/84 05/13/22 07:40 Pulse Ox 95 05/13/22 07:40 FiO2 Intake & Output 05/12/22 05/13/22 05/13/22 18:59 06:59 18:59 Intake Total 1000 Output Total 1650 Balance -650 Weight 102 kg 102 kg Intake: Intake, IV Titration 1000 Amount Amino Acid 5%-D15w+Lytes* 1000 E* 1,000 ml @ 60 mls/hr IV .BY DURATION NOE Rx#: [id number] Output: Gastric Drainage 350 Urine 1300 Other: Voiding Method Incontinent Incontinent Incontinent # Bowel Movements 1 - Exam GENERAL DESCRIPTION: Awake, 76-year-old male, frail, weak, chronically ill. On 4 L nasal cannula. HEENT: Pale, nonicteric, no neck masses dry mucous membranes. NECK: No neck masses no JVD no stridor. LUNGS: Diminished breath sounds at the bases, minimal crackles at the right left base, no rhonchi and no wheezes HEART: Distant S1 and S2, no S3 gallop. ABDOMEN: Soft, no tenderness , guarding or rigidity, no organomegaly, PEG tube is noted. EXTREMITIES: Right heel wound dressing is noted otherwise unremarkable. SKIN: No rash, as noted above under extremities.. NEUROLOGICAL: Patient is alert awake, oriented 3, however he is chronically weak. - Labs CBC & Chem 7: 05/13/22 04:23 05/13/22 04:23 Labs: Abnormal Lab Results - Last 24 Hours (Table) 05/13/22 05/13/22 05/13/22 Range/Units 04:23 04:23 04:23 WBC 21.60 H (4.50-10.00) X 10*3/uL RBC 2.92 L (4.40-5.60) X 10*6/uL Hgb 9.5 L (13.0-17.0) g/dL Hct 29.4 L (39.6-50.0) % MCV 100.7 H (80.0-97.0) fL MCH 32.5 H (27.0-32.0) pg RDW 14.6 H (11.5-14.5) % Immature Gran # 0.16 H (0.00-0.04) X 10*3/uL Neutrophils # 19.37 H (1.80-7.70) X 10*3/uL Lymphocytes # 0.58 L (0.90-5.00) X 10*3/uL Monocytes # 1.15 H (0.20-1.00) X 10*3/uL Sodium (137-145) mmol/L Chloride (98-107) mmol/L BUN (9-20) mg/dL Glucose (74-99) mg/dL Calcium (8.4-10.2) mg/dL AST 312 H (14-35) U/L ALT 270 H (10-49) U/L Alkaline Phosphatase 209 H (41-126) U/L C-Reactive Protein (<1.0) mg/dL Total Protein 3.9 L (6.2-8.2) g/dL Albumin 1.9 L (3.8-4.9) g/dL Albumin/Globulin Ratio 0.95 L (1.60-3.17) g/dL Procalcitonin 0.49 H (0.02-0.09) ng/mL 05/13/22 Range/Units 04:23 WBC (4.50-10.00) X 10*3/uL RBC (4.40-5.60) X 10*6/uL Hgb (13.0-17.0) g/dL Hct (39.6-50.0) % MCV (80.0-97.0) fL MCH (27.0-32.0) pg RDW (11.5-14.5) % Immature Gran # (0.00-0.04) X 10*3/uL Neutrophils # (1.80-7.70) X 10*3/uL Lymphocytes # (0.90-5.00) X 10*3/uL Monocytes # (0.20-1.00) X 10*3/uL Sodium 136 L (137-145) mmol/L Chloride 111 H (98-107) mmol/L BUN 32 H (9-20) mg/dL Glucose 113 H (74-99) mg/dL Calcium 8.0 L (8.4-10.2) mg/dL AST 326 H (14-35) U/L ALT 253 H (10-49) U/L Alkaline Phosphatase 203 H (41-126) U/L C-Reactive Protein 18.1 H (<1.0) mg/dL Total Protein 3.9 L (6.2-8.2) g/dL Albumin 1.7 L (3.8-4.9) g/dL Albumin/Globulin Ratio (1.60-3.17) g/dL Procalcitonin (0.02-0.09) ng/mL Assessment and Plan Plan: Possible aspiration pneumonia , nonetheless the patient is asymptomatic, and he is already empirically on antibiotics for his MRSA infection, that will be appropriate for his aspiration pneumonia. Follow-up chest x-ray continues to show limited patchy infiltrate in the left lower lobe and right upper lobe. Remains on vancomycin and Zosyn. COVID-19 screen negative. Possible ileus, being addressed by general surgery on the case. History of adenocarcinoma of the prostate. Superficial venous thrombosis, right cephalic vein from level of mid bicep and upper forearm, being addressed by vascular surgery on the case, no evidence of DVT Benign essential hypertension Chronic weakness and failure to thrive Status post debridement of heel for MRSA infection Dysphagia secondary to CVA and history of PEG tube placement Plan: No issues from the pulmonary standpoint Chest x-ray showing some limited infiltration of the upper lobes bilaterally keep same antibiotic coverage Antibiotic management is per ID We are going to sign off the case
[2022-05-13] MEDS: COLLAGENASE 250 UNIT/GM OINTMENT 30 GM TUBE TOPICAL SCH (20:40)
[2022-05-14] MEDS: METOCLOPRAMIDE 5 MG/ML 2 ML VIAL IVP SCH ×3 (00:29→18:47)
[2022-05-14] MEDS: SODIUM CHLORIDE 0.9% 1,000 ML IV SCH ×2 (00:29→22:44)
[2022-05-14] MEDS ORDERED: VANCOMYCIN TROUGH DUE 1 EACH MISC MISCELLANE ONE (03:00)
[2022-05-14] MEDS: PIPERACILLIN-TAZOBACTAM 3.375 GM in SODIUM CHLORIDE 0.9% 100 ML IVPB SCH ×3 (04:19→22:20)
[2022-05-14] MEDS: BUDESONIDE 1 MG/2 ML NEBU INHALATION SCH ×2 (07:58→20:46)
[2022-05-14] MEDS: IPRATROPIUM-ALBUTEROL 3 ML NEB INHALATION SCH ×4 (07:58→20:46)
[2022-05-14] MEDS: FORMOTEROL FUMARATE 20 MCG/2 ML NEBU INHALATION SCH ×2 (07:58→20:46)
[2022-05-14] MEDS ORDERED: IOPAMIDOL CONTRAST (ORAL USE) VIAL PO PRN ×2 (08:00→08:40)
[2022-05-14 09:04] LABS: Basophils # (A) 0.03 X 10*3/uL (0.00-0.10); Basophils % (A) 0.1 %; Eosinophils # (A) 0.32 X 10*3/uL (0.04-0.35); Eosinophils % (A) 1.6 %; HCT 29.1 % (39.6-50.0); HGB 9.2 g/dL (13.0-17.0); Lymphocytes # (A) 0.64 X 10*3/uL (0.90-5.00); Lymphocytes % (A) 3.2 %; MCH 32.1 pg (27.0-32.0); MCHC 31.6 g/dL (32.0-37.0); MCV 101.4 fL (80.0-97.0); Mean Platelet Volume 9.8 fL (9.5-12.2); Monocytes # (A) 1.18 X 10*3/uL (0.20-1.00); Monocytes % (A) 5.8 %; NRBC Per 100 WBC 0 /100 WBCS (0.0-0.0); Neutrophils # (A) 17.92 X 10*3/uL (1.80-7.70); Neutrophils % (A) 88.3 %; Platelet Count 354 X 10*3/uL (140-440); RBC 2.87 X 10*6/uL (4.40-5.60); RDW 14.8 % (11.5-14.5); WBC 20.29 X 10*3/uL (4.50-10.00)
[2022-05-14] MEDS: FUROSEMIDE 10 MG/ML 4 ML VIAL IV SCH (09:05)
[2022-05-14] MEDS: PANTOPRAZOLE 40 MG/10 ML VIAL IVP SCH (09:05)
[2022-05-14 09:23] LABS: African American GFR (CKD) 84.4 (60.0-200.0); Anion Gap 6.2 mmol/L (10.00-18.00); BUN/Creat Ratio 34.9 Ratio (12.00-20.00); Blood Urea Nitrogen 34.9 mg/dL (9.0-27.0); Calcium 8.3 mg/dL (8.7-10.3); Carbon Dioxide 21.8 mmol/L (20.0-27.5); Non-African American GFR(CKD) 72.8 (60.0-200.0); Phosphorus 3.3 mg/dL (2.4-5.1)
[2022-05-14] MEDS: ONDANSETRON 4 MG/2 ML VIAL IVP PRN (09:38)
--- NOTE | 2022-05-14 11:53 | P.CONS ---
History of Present Illness - Reason for Consult Consult date: 05/14/22 Elevated LFTs Requesting physician: Vamshi Iniguez - Chief Complaint Dysphagia - History of Present Illness This is a pleasant 76-year-old male who initially came to the emergency department for evaluation of weakness difficulty eating on 04/24/2022. Apparently patient had a recent hospital admission for urinary tract infection was discharged to rehab and continued to have increased weakness and was brought back for further evaluation. 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 Apparently patient had been complaining of decreased appetite and difficulty with swallowing. He reportedly had approximately 20 pound weight loss in last menstruation. Patient had a CT of the abdomen and pelvis that reported no evidence of free air. Renal cortical cysts. No renal solid mass or obstruction. Arthrosclerotic vascular disease. Bilateral basilar pulmonary infiltrate and atelectasis. Cholelithiasis. Patient was seen and evaluated by speech therapy who reported that oral and pharyngeal phases of swallowing appear to be normal. With timing of swallow initiation with no signs or symptoms of aspiration/penetration exhibited with trials. Patient had reported sensation of solid stevan crackers sticking however was able to clear with liquid wash. They have recommended patient be on a dysphagia level III chopped diet and thin liquids. Patient had a PEG tube placed by Dr. Dean on 04/30/22, since then he has had some abdominal distention and the PEG tube feedings have been placed on hold. PEG tube has been on independent drainage with bile. CT of the abdomen and pelvis has been ordered. Patient has also infected pressure ulcers and is currently on IV antibiotics as well as had some aspiration pneumonia noted when he first was admitted and was started on anabiotic's at that time as well. Patient had been on Augmentin and Cipro prior to admission. Augmentin was discontinued on 05/03/2022, Cipro was discontinued on 04/24/2022. Patient was then started on vancomycin for MRSA which was discontinued on 05/13/2022. Patient is now on Zosyn and doxycycline per recommendations from infectious disease. Patient was noted to have mild elevation in his LFTs after admission with continued increase. Gastroenterology was consulted for elevated LFTs. Patient denies any history of previous liver disease, denies any history of alcohol abuse in the past or currently. No history of fatty liver, or hepatitis. Patient also had been on IV acetaminophen during this hospitalization which has been discontinued as well. He denies any other new medications prior to coming into the emergency department. This patient initially had a CT of the abdomen and pelvis on 04/27/2022 with contrast that showed no evidence of free air. Renal cortical cyst. No renal solid mass or obstruction. Arthrosclerotic vascular disease. Bilateral basilar pulmonary infiltrates and atelectasis. Cholelithiasis. At that time said liver spleen pancreas appear intact. Bile ducts not dilated. Gallbladder intact. Small calcified gallstones. Admitting labs included a total bilirubin of 0.9 AST 26 ALT 44 alkaline phosphatase 110. Today's labs WBC 20.2 hemoglobin 9.2 hematocrit 29 platelet count 354,000 sodium 140 potassium 4.0 BUN 34.9 creatinine 1.0 mL LFTs currently pending Review of Systems REVIEW OF SYSTEMS: CARDIOPULMONARY: No chest pain or shortness of breath. Gastrointestinal: No abdominal pain or epigastric pain. PEG tube in place with independent drainage. No nausea or vomiting. No hematemesis, coffee-ground emesis. No rectal bleeding, or melena. GENITOURINARY: No dysuria or hematuria. MUSCULOSKELETAL: Reports normal range of motion. SKIN: No rashes. No jaundice. ENDOCRINE: No chills, fevers. No excessive weight gain or loss. No polydipsia or polyuria. PSYCHIATRIC: Unremarkable. NEUROLOGY: No change in mental status. Denies dizziness, headache. ENT: Vision unremarkable. CONSTITUTIONAL: No recent weight loss. No fever, chills, night sweats. 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 History of atrial fibrillation on Xarelto History of Any Multi-Drug Resistant Organisms: MRSA Year Discovered:: 05/02/22 MDRO Source:: Right Heel Past Surgical History: Heart Catheterization With Stent, Hernia Repair Additional Past Surgical History / Comment(s): one cardiac stent, irene cataracts, Past Anesthesia/Blood Transfusion Reactions: No Reported Reaction Additional Past Anesthesia/Blood Transfusion Reaction / Comm: PT NEVER HAS HAD A BLOOD TRANSFUSION. Date of Last Stent Placement:: 05/12/14 Smoking Status: Former smoker - Past Family History Mother Family Medical History: Coronary Artery Disease (CAD) Additional Family Medical History / Comment(s): MOTHER HAD CABG. SHE AT AGE 91 YRS. Medications and Allergies Home Medications Medication Instructions Recorded Confirmed Type Amiodarone [Cordarone] 200 mg PO DAILY@0800 11/04/16 04/24/22 History Aspirin EC [Ecotrin Low Dose] 81 mg PO DAILY@1200 11/04/16 04/24/22 History Rivaroxaban [Xarelto] 15 mg PO DAILY@0800 11/04/16 04/24/22 History Atorvastatin [Lipitor] 80 mg PO HS@2100 03/01/19 04/24/22 History Cholecalciferol (Vitamin D3) 75 mcg PO DAILY@1700 03/25/22 04/24/22 History [Vitamin D3 (3000 Iu)] Solifenacin Succinate 10 mg PO DAILY@0800 03/25/22 04/24/22 History Tamsulosin HCl [Flomax] 0.4 mg PO DAILY@0800 03/25/22 04/24/22 History lisinopriL [Zestril] 10 mg PO DAILY@0800 03/25/22 04/24/22 History Ciprofloxacin HCl [Cipro] 500 mg PO BID@0800,2100 04/24/22 04/24/22 History Cyanocobalamin [Vitamin B-12] 1,000 mcg PO DAILY@1700 04/24/22 04/24/22 History Ensure Enlive 237 ml PO TID@0800,1200,1700 04/24/22 04/24/22 History HYDROcodone/APAP 5-325MG [[place] 1 tab PO Q6HR PRN 04/24/22 04/24/22 History 5-325] Magnesium Hydroxide [Milk of 7,200 mg PO Q48H PRN 04/24/22 04/24/22 History Magnesia Concentrate] Melatonin 1 mg PO HS@2100 04/24/22 04/24/22 History Na Phos,M-B/Na Phos,Di-Ba [Fleet 133 ml RECTAL DAILY PRN 04/24/22 04/24/22 History Adult] Ondansetron [Zofran] 4 mg PO Q8HR PRN 04/24/22 04/24/22 History Sennosides [Senokot] 17.2 mg PO HS@2100 04/24/22 04/24/22 History bisacodyL [Dulcolax] 10 mg RECTAL DAILY PRN 04/24/22 04/24/22 History polyethylene glycoL 3350 [Miralax] 17 gm PO DAILY@0800 04/24/22 04/24/22 History Allergies Allergy/AdvReac Type Severity Reaction Status Date / Time No Known Allergies Allergy Verified 04/24/22 17:10 Physical Exam Vitals: Vital Signs Temp Pulse Pulse Resp BP Pulse Ox 05/14/22 08:13 90 05/14/22 07:59 83 93 L 05/14/22 02:00 98.6 F 79 21 145/69 94 L 05/13/22 18:32 98.7 F 87 17 162/75 94 L 05/13/22 15:52 94 05/13/22 15:41 92 05/13/22 14:14 98.2 F 91 18 133/82 95 05/13/22 11:05 100 05/13/22 10:59 100 05/13/22 08:40 18 Intake and Output 05/13/22 05/14/22 05/14/22 22:59 06:59 14:59 Other: Voiding Method Incontinent External Catheter General appearance: The patient is alert, oriented, appears in no acute distress. HET: Head is normocephalic and atraumatic. Conjunctiva pink. Sclera anicteric. Neck: Supple without lymphadenopathy. Trachea midline. Heart: S1 S2. Regular rate and rhythm. Lungs: Clear to auscultation. Abdomen: Soft, nontender, nondistended with bowel sounds. Tube in place. No guarding or rigidity. Skin: No rashes. No jaundice. Extremities: Normal skin color and turgor. No pedal edema. Neurological: No focal deficits. Alert and oriented x3. Results CBC & Chem 7: 05/14/22 04:14 05/14/22 04:14 Labs: Abnormal Lab Results - Last 24 Hours (Table) 05/13/22 05/13/22 05/13/22 Range/Units 04:23 04:23 04:23 WBC 21.60 H (4.50-10.00) X 10*3/uL RBC 2.92 L (4.40-5.60) X 10*6/uL Hgb 9.5 L (13.0-17.0) g/dL Hct 29.4 L (39.6-50.0) % MCV 100.7 H (80.0-97.0) fL MCH 32.5 H (27.0-32.0) pg RDW 14.6 H (11.5-14.5) % Immature Gran # 0.16 H (0.00-0.04) X 10*3/uL Neutrophils # 19.37 H (1.80-7.70) X 10*3/uL Lymphocytes # 0.58 L (0.90-5.00) X 10*3/uL Monocytes # 1.15 H (0.20-1.00) X 10*3/uL AST 312 H (14-35) U/L ALT 270 H (10-49) U/L Alkaline Phosphatase 209 H (41-126) U/L Total Protein 3.9 L (6.2-8.2) g/dL Albumin 1.9 L (3.8-4.9) g/dL Albumin/Globulin Ratio 0.95 L (1.60-3.17) g/dL Procalcitonin 0.49 H (0.02-0.09) ng/mL Microbiology - Last 24 Hours (Table) 05/13/22 04:23 Blood Culture - Preliminary Blood No Growth after 24 hours Assessment and Plan (1) Acute hepatitis Narrative/Plan: 76-year-old male who has been here mid April for dysphagia also found to be a possible CVA, aspiration pneumonia as well as MRSA positive for infected pressure ulcers was been on multiple antibiotics has had elevated LFTs that has continued to increase. Likely medication induced hepatitis related to antibiotics as well as acetaminophen in a patient who denies any previous history of liver disease. Denies any previous history of alcoholism or fatty liver disease. Will order acute hepatitis panel, awaiting repeat CT of the abdomen may consider ultrasound of liver. Initial CT of the abdomen did show cholelithiasis without any CBD dilation. Patient denies any abdominal pain. Current Visit: Yes Status: Acute Code(s): B17.9 - ACUTE VIRAL HEPATITIS, UNSPECIFIED SNOMED Code(s): 06593530 (2) Dysphagia Current Visit: Yes Status: Acute Code(s): R13.10 - DYSPHAGIA, UNSPECIFIED SNOMED Code(s): 54730565 (3) Weakness Current Visit: Yes Status: Acute Code(s): R53.1 - WEAKNESS SNOMED Code(s): 18856971 (4) Atrial fibrillation Current Visit: No Status: Acute Code(s): I48.91 - UNSPECIFIED ATRIAL FIBRILLATION SNOMED Code(s): 24743286 (5) CVA (cerebral infarction) Current Visit: No Status: Acute Code(s): I63.9 - CEREBRAL INFARCTION, UNSPECIFIED SNOMED Code(s): 140160250 (6) MRSA (methicillin resistant staph aureus) culture positive Current Visit: Yes Status: Acute Code(s): Z22.322 - CARRIER OR SUSPECTED CARRIER OF METHICILLIN RESIS STAPH SNOMED Code(s): 814243169 Plan: 1. Continue symptomatic and supportive care 2. Daily CMP 3. Avoid hepatotoxic medications 4. Await CT abdomen results, consider possible liver ultrasound 3. Further recommendations forthcoming based on clinical course Thank you for this consultation, we will continue to follow Dr. Sarah Post I agree with the dictator's note, documented as a scribe by Jami Patel.
--- NOTE | 2022-05-14 11:59 | CT ---
EXAMINATION TYPE: CT abdomen pelvis w con DATE OF EXAM: 05/14/2022 COMPARISON: CT abdomen and pelvis April 27, 2022. HISTORY: abdominal pain and distention CT DLP: 1572.7 mGycm, Automated Exposure Control for Dose Reduction was Utilized. CONTRAST: CT scan of the abdomen and pelvis is performed with attempted oral but with IV Contrast, patient inje cted with 100 mL of Isovue 300. FINDINGS: LUNG BASES: Fairly moderate-sized bilateral pleural effusions are partially imaged. Findings more pro minent than suspected on recent chest x-ray one day earlier. Findings new from prior. LIVER/GB: No significant abnormality is appreciated. PANCREAS: No significant abnormality is seen. SPLEEN: No significant abnormality is seen. ADRENALS: No significant abnormality is seen. KIDNEYS: Cortical thinning bilaterally. Simple appearing thin-walled cysts of various size and shape are redemonstrated scattered throughout the bilateral kidneys.There is 6 mm nonobstructing calculus l ower pole right kidney coronal image 60 on the current study. BOWEL: Some Residual oral contrast from prior CT is seen in the distal colon. Small-sized hiatal betsey ia redemonstrated. New percutaneous gastrostomy tube noted. Small amount of oral contrast noted in th e stomach and duodenal sweep. Suboptimal evaluation of the radial bowel due to lack of enteric contra st. No suspicious small or large bowel dilatation. Moderate wall thickening involving the right colon is present. Diverticula in the left colon are seen. Mild to moderate wall thickening in the transver se colon. Some areas of wall thickening throughout nondistended small bowel loops. PROSTATE/SEMINAL VESICLES: There are 3 gold therapy seeds scattered throughout the prostate gland whi ch measures upper limits of normal in size. LYMPH NODES: No greater than 1cm abdominal or pelvic lymph nodes are appreciated. OSSEOUS STRUCTURES: Metallic hardware from right hip arthroplasty causes streak artifact somewhat orourke iting evaluation of pelvic structures. Multilevel spondylolisthesis and disc space narrowing in the l umbar spine. OTHER: Moderate diffuse soft tissue anasarca is seen. Mild to moderate calcified plaque of the aorta extends into iliac branch vessels. IMPRESSION: 1. Moderate diffuse soft tissue anasarca. Small to moderate-sized bilateral pleural effusions are par tially imaged. Correlate for fluid overload state. No significant intra-abdominal ascites. 2. Possible new enterocolitis versus product of poor distention. Correlate clinically. Differential i ncludes infectious, inflammatory, and ischemic etiologies. No bowel obstruction.
[2022-05-14] MEDS: 1: MVI, ADULT NO.4 WITH VIT K 10 ML, TRACE (CONC-1ML/DOSE) 1 ML in AMINO ACID 5%-D15W+LY IV SCH ×6 (12:39→12:43)
--- NOTE | 2022-05-14 13:02 | P.PN ---
Subjective Progress Note Date: 05/14/22 CHIEF COMPLAINT: Dysphagia HISTORY OF PRESENT ILLNESS: Patient is status post PEG tube placement 04/30/22. Patient had PEG tube to independent drainage. Patient having bilious output. Patient denies any abdominal pain. He still reports being nauseated. No vomiting. He still feels that his abdomen is bloated. Computed tomography scan abdomen and pelvis with IV contrast only. Patient could not tolerate oral contrast. CAT scan results showing moderate diffuse soft tissue anasarca small to moderate-sized bilateral pleural effusions are partially imaged. Correlate for fluid overload state. No significant intra-abdominal ascites. Possible new enterocolitis versus product of poor distention. Differential includes infectious, inflammatory and ischemic etiologies. No bowel obstruction. Rigoberto silva did have a bowel movement this morning. Afebrile. WBC remains elevated at 20.29 hemoglobin 9.2 platelets 354 PHYSICAL EXAM: VITAL SIGNS: Reviewed. GENERAL: Well-developed in no acute distress. ABDOMEN: Soft. Mildly distended. Nontender. PEG tube site clean dry and intact. PEG tube connected to Luo catheter bag with bilious output NEUROLOGIC: Alert and oriented. Cranial nerves II through XII grossly intact. ASSESSMENT: 1. Dysphagia status post PEG tube placement 2. Severe protein calorie malnutrition 3. History of CVA 4. Possible aspiration pneumonia 5. Dilation of stomach 6. Elevated LFTs likely medication induced per GI service 7. Leukocytosis 8. Possible enterocolitis on computed tomography scan PLAN: -Continue to hold tube feeds -Due to gaseous dilation of stomach continue PEG tube to independent drainage -Computed tomography scan abdomen and pelvis with oral and IV contrast ordered for further evaluation of abdominal distention and dilation of stomach -Keep patient NPO -Continue Reglan -Repeat LFTs in a.m. -Continue supportive care -Continue antiemetics as needed -Continue TPN for nutrition support Physician Equipment Coordinator note has been reviewed by physician. Signing provider agrees with the documented findings, assessment, and plan of care. I have personally seen and examined the patient, reviewed the PLUG ASSEMBLER /PAs history, exam and MDM and agree with the assessment and plan as written. Based on total visit time, I have performed more than 50% of the visit. As above: CAT scan was reviewed. PEG tube in appropriate location. No evidence of obstruction. The patient's stomach is somewhat distended with air. Continue PEG tube to drainage. Continue TPN. Objective - Vital Signs Vital signs: Vital Signs Temp 98.0 F 05/14/22 08:00 Pulse 90 05/14/22 12:15 Resp 17 05/14/22 08:00 BP 166/72 05/14/22 08:00 Pulse Ox 94 L 05/14/22 08:00 FiO2 Intake & Output 05/13/22 05/14/22 05/14/22 18:59 06:59 18:59 Weight 102 kg 102 kg Other: Voiding Method Incontinent Incontinent External Catheter - Labs CBC & Chem 7: 05/14/22 04:14 05/14/22 04:14 Labs: Abnormal Lab Results - Last 24 Hours (Table) 05/14/22 05/14/22 Range/Units 04:14 04:14 WBC 20.29 H (4.50-10.00) X 10*3/uL RBC 2.87 L (4.40-5.60) X 10*6/uL Hgb 9.2 L (13.0-17.0) g/dL Hct 29.1 L (39.6-50.0) % MCV 101.4 H (80.0-97.0) fL MCH 32.1 H (27.0-32.0) pg MCHC 31.6 L (32.0-37.0) g/dL RDW 14.8 H (11.5-14.5) % Immature Gran # 0.20 H (0.00-0.04) X 10*3/uL Neutrophils # 17.92 H (1.80-7.70) X 10*3/uL Lymphocytes # 0.64 L (0.90-5.00) X 10*3/uL Monocytes # 1.18 H (0.20-1.00) X 10*3/uL Chloride 112 H (96-109) mmol/L Anion Gap 6.20 L (10.00-18.00) mmol/L BUN 34.9 H (9.0-27.0) mg/dL BUN/Creatinine Ratio 34.90 H (12.00-20.00) Ratio Glucose 119 H (70-110) mg/dL Calcium 8.3 L (8.7-10.3) mg/dL Microbiology - Last 24 Hours (Table) 05/13/22 04:23 Blood Culture - Preliminary Blood No Growth after 24 hours
[2022-05-14 13:07] LABS: Total Bilirubin 0.9 mg/dL (0.2-1.3)
--- NOTE | 2022-05-14 13:08 | P.PN ---
Subjective Progress Note Date: 05/14/22 Progress note Date of service 05/14/[address] Iniguez Patient seen and evaluated [id number] Discussed with his and the patient. Vital sign: Temperature 90.8 F oral Pulse rate 82 per minute regular sinus with no irregularities with a history of paroxysmal atrial fibrillation Respiratory rate 17 bpm. And the blood pressure 166/72 with the oxygen saturation 94% on 4 L. Oh Patient still have the cough and earlier today before he goes to the computed tomography scan he had still feeling the nausea and the vomiting however patient had empty stomach and he was nothing by mouth. Laboratory: His white count went up to 20.29 and a hemoglobin is 9.2 and the hematocrit 29.1 with the MCV 101.4. With the underlying macro cytosis still flecked waiting. Chemistry indicating sodium 140, potassium 4 chloride 112 carbon dioxide 21.8, his EEG at far for non- on 72.8 with the BUN and creatinine ratio 34.9 blood sugar is controlled 119 calcium is 8.3, phosphate 3.3 magnesium 2 normal. I did consult the gastroenterology again for reevaluation with the elevation of the liver enzyme which is very apparent in the follow-up on 05/1222 and on 05/12/2022 with the progression. Patient seen by the PA for Rebecca Agosto Renee with the impression acute hepatitis and her plan for care on the her note but no actual start of treatment and her note. His computed tomography scan was done today of the abdomen by the order of Dr. Parham surgeon which impression indicating moderate diffuse soft tissue anasarca with the severe hypoproteinemia with [id number] notified lactic of now Warta extended into the iliac branch vessels and she and also present small to moderate size bilateral pleural effusion partially hemorrhagic and correlate with fluid overload no significant intra-abdominal ascites #2 possible the old enterocolitis versus or distention. Review by Dr. Dean and still continue the hold the feeding 4 today and continue the TPN IV. Patient has aspiration pneumonia and the chest x-ray was done yesterday was reviewed by Dr. Crain infectious disease and antibiotic changed. On the physical exam: Patient is conscious still alert, oropharynx was negative has natural teeth Neck was supple no JVD Chest decreased air entry with underlying pleural effusion and patchy infiltrate with the aspiration pneumonia Heart regular sinus with of paroxysmal atrial fibrillation on anticoagulant Abdomen no tenderness with that PEG tube in place Extremities underlying normal left arm PICC line infusing with the TPN as well has antibiotic. Psychiatry stable Neurologically no progression with the underlying bilateral CVA admitted with acute onset with the showering from probably emboli with a history of atrial fibrillation paroxysmal. Assessment: #1 dysphagia, currently on TPN, PEG tube with enteral feeding tube has been held recurrent vomiting and aspiration #2 protein calorie severe deficiency with the anasarca secondary to low albumin was 5. #3 hypertension #4 hemiplegia of the right sided. #5 hepatitis acute with elevated liver enzyme consultation with the [facility] was obtained. #6 leukocytosis #7 anemia of the hemoglobin. #7 bilateral hemispheric CVA #8 right heel decubitus with debridement found to be MRSA currently on antibiotic was treated initially with vancomycin and PICC line currently infusing. #Diabetes mellitus poorly controlled. Plan #1 condition isn't still r guarded #2 continue the current plan and will wait before starting the PEG tube feeding patient able to tolerated. #3 will follow the recommendation of Dr. Charles industrial controls technician for any farther treatment action. Objective - Vital Signs Vital signs: Vital Signs Temp 98.0 F 05/14/22 08:00 Pulse 90 05/14/22 12:15 Resp 17 05/14/22 08:00 BP 166/72 05/14/22 08:00 Pulse Ox 94 L 05/14/22 08:00 FiO2 Intake & Output 05/13/22 05/14/22 05/14/22 18:59 06:59 18:59 Weight 102 kg 102 kg Other: Voiding Method Incontinent Incontinent External Catheter - Labs CBC & Chem 7: 05/14/22 04:14 05/14/22 04:14 Labs: Abnormal Lab Results - Last 24 Hours (Table) 05/14/22 05/14/22 Range/Units 04:14 04:14 WBC 20.29 H (4.50-10.00) X 10*3/uL RBC 2.87 L (4.40-5.60) X 10*6/uL Hgb 9.2 L (13.0-17.0) g/dL Hct 29.1 L (39.6-50.0) % MCV 101.4 H (80.0-97.0) fL MCH 32.1 H (27.0-32.0) pg MCHC 31.6 L (32.0-37.0) g/dL RDW 14.8 H (11.5-14.5) % Immature Gran # 0.20 H (0.00-0.04) X 10*3/uL Neutrophils # 17.92 H (1.80-7.70) X 10*3/uL Lymphocytes # 0.64 L (0.90-5.00) X 10*3/uL Monocytes # 1.18 H (0.20-1.00) X 10*3/uL Chloride 112 H (96-109) mmol/L Anion Gap 6.20 L (10.00-18.00) mmol/L BUN 34.9 H (9.0-27.0) mg/dL BUN/Creatinine Ratio 34.90 H (12.00-20.00) Ratio Glucose 119 H (70-110) mg/dL Calcium 8.3 L (8.7-10.3) mg/dL Microbiology - Last 24 Hours (Table) 05/13/22 04:23 Blood Culture - Preliminary Blood No Growth after 24 hours
[2022-05-14] MEDS: SUCRALFATE 1 GM TAB PO SCH ×2 (15:19→18:48)
[2022-05-14] MEDS: ASPIRIN 81 MG PO SCH (15:19)
[2022-05-14 15:24] LABS: Hepatitis A Antibody IgM Nonreactive (Nonreactive); Hepatitis B Core IgM Nonreactive (Nonreactive); Hepatitis B Surface Antigen Nonreactive (Nonreactive); Hepatitis C IgG Antibody Nonreactive (Nonreactive)
[2022-05-14] MEDS: BENZONATATE 100 MG CAP PO SCH (17:15)
[2022-05-14] MEDS: CYANOCOBALAMIN 500 MCG TAB PO SCH (18:48)
[2022-05-14] MEDS: RIVAROXABAN 20 MG TAB PO SCH ×2 (18:48→22:20)
[2022-05-14] MEDS: CHOLECALCIFEROL 25 MCG (1000 IU) TABLET PO SCH (18:48)
[2022-05-14] MEDS: MIRTAZAPINE 15 MG TAB PO SCH (22:20)
[2022-05-14] MEDS: ATORVASTATIN 80 MG TAB PO SCH (22:20)
[2022-05-14] MEDS: DOXYCYCLINE 100 MG CAP PO SCH (22:20)
[2022-05-14] MEDS: MELATONIN 3 MG TABLET PO SCH (22:21)
[2022-05-14] MEDS: COLLAGENASE 250 UNIT/GM OINTMENT 30 GM TUBE TOPICAL SCH (22:21)
[2022-05-14] MEDS: guaiFENesin-DM 100-10MG/5ML 10 ML CUP PO PRN (22:38)
[2022-05-15] MEDS: METOCLOPRAMIDE 5 MG/ML 2 ML VIAL IVP SCH ×4 (00:25→23:08)
[2022-05-15] MEDS: SUCRALFATE 1 GM TAB PO SCH ×4 (00:25→15:39)
[2022-05-15] MEDS: 1: MVI, ADULT NO.4 WITH VIT K 10 ML, TRACE (CONC-1ML/DOSE) 1 ML in AMINO ACID 5%-D15W+LY IV SCH ×6 (01:37→13:20)
[2022-05-15] MEDS: PIPERACILLIN-TAZOBACTAM 3.375 GM in SODIUM CHLORIDE 0.9% 100 ML IVPB SCH ×3 (05:21→19:45)
[2022-05-15 05:31] LABS: ALT 554 U/L (4-49); AST 552 U/L (17-59); Albumin 1.7 g/dL (3.5-5.0); Albumin/Globulin Ratio 0.7; Alkaline Phosphatase 306 U/L (38-126); Bilirubin,Unconjugated 0.4 mg/dL (0.0-1.1); Globulin 2.3 g/dL; Total Bilirubin 0.8 mg/dL (0.2-1.3)
[2022-05-15] MEDS: TAMSULOSIN 0.4 MG CAP.ER.24H PO SCH (08:55)
[2022-05-15] MEDS: PANTOPRAZOLE 40 MG/10 ML VIAL IVP SCH (08:55)
[2022-05-15] MEDS: FUROSEMIDE 10 MG/ML 4 ML VIAL IV SCH (08:55)
[2022-05-15] MEDS: AMIODARONE 200 MG TAB PO SCH (08:56)
[2022-05-15] MEDS: DOXYCYCLINE 100 MG CAP PO SCH (08:56)
[2022-05-15] MEDS: TROSPIUM CHLORIDE 20 MG TABLET PO SCH (08:56)
[2022-05-15] MEDS: ASPIRIN 81 MG PO SCH (08:56)
[2022-05-15] MEDS: amLODIPine 5 MG TAB PO SCH (08:56)
[2022-05-15 09:19] LABS: African American GFR (CKD) 88.6 (60.0-200.0); Anion Gap 9.8 mmol/L (10.00-18.00); BUN/Creat Ratio 35.1 Ratio (12.00-20.00); Blood Urea Nitrogen 33.7 mg/dL (9.0-27.0); Calcium 8.4 mg/dL (8.7-10.3); Carbon Dioxide 20.9 mmol/L (20.0-27.5); Magnesium 2.1 mg/dL (1.5-2.4); Non-African American GFR(CKD) 76.5 (60.0-200.0); Phosphorus 3.8 mg/dL (2.4-5.1); Potassium 3.7 mmol/L (3.5-5.5)
[2022-05-15] MEDS: FORMOTEROL FUMARATE 20 MCG/2 ML NEBU INHALATION SCH ×2 (09:19→20:50)
[2022-05-15] MEDS: IPRATROPIUM-ALBUTEROL 3 ML NEB INHALATION SCH ×4 (09:19→20:50)
[2022-05-15] MEDS: BUDESONIDE 1 MG/2 ML NEBU INHALATION SCH ×2 (09:19→20:50)
[2022-05-15 09:49] LABS: Vitamin B12 >1800.0 pg/mL (200.0-944.0)
--- NOTE | 2022-05-15 10:18 | P.PN ---
Subjective Progress Note Date: 05/15/22 Principal diagnosis: Elevated LFTs This is a pleasant 76-year-old male who initially came to the emergency department for evaluation of weakness difficulty eating on 04/24/2022. Apparently patient had a recent hospital admission for urinary tract infection was discharged to rehab and continued to have increased weakness and was brought back for further evaluation. 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 Apparently patient had been complaining of decreased appetite and difficulty with swallowing. He reportedly had approximately 20 pound weight loss in last menstruation. Patient had a CT of the abdomen and pelvis that reported no evidence of free air. Renal cortical cysts. No renal solid mass or obst ruction. Arthrosclerotic vascular disease. Bilateral basilar pulmonary infiltrate and atelectasis. Cholelithiasis. Patient was seen and evaluated by speech therapy who reported that oral and pharyngeal phases of swallowing appear to be normal. With timing of swallow initiation with no signs or symptoms of aspiration/penetration exhibited with trials. Patient had reported sensation of solid stevan crackers sticking however was able to clear with liquid wash. They have recommended patient be on a dysphagia level III chopped diet and thin liquids. Patient had a PEG tube placed by Dr. Dean on 04/30/22, since then he has had some abdominal distention and the PEG tube feedings have been placed on hold. PEG tube has been on independent drainage with bile. CT of the abdomen and pelvis has been ordered. Patient has also infected pressure ulcers and is currently on IV antibiotics as well as had some aspiration pneumonia noted when he first was admitted and was started on anabiotic's at that time as well. Patient had been on Augmentin and Cipro prior to admission. Augmentin was d iscontinued on 05/03/2022, Cipro was discontinued on 04/24/2022. Patient was then started on vancomycin for MRSA which was discontinued on 05/13/2022. Patient is now on Zosyn and doxycycline per recommendations from infectious disease. Patient was noted to have mild elevation in his LFTs after admission with continued increase. Gastroenterology was consulted for elevated LFTs. Patient denies any history of previous liver disease, denies any history of alcohol abuse in the past or currently. No history of fatty liver, or hepatitis. Patient also had been on IV acetaminophen during this ho spitalization which has been discontinued as well. He denies any other new medications prior to coming into the emergency department. This patient initially had a CT of the abdomen and pelvis on 04/27/2022 with contrast that showed no evidence of free air. Renal cortical cyst. No renal solid mass or obstruction. Arthrosclerotic vascular disease. Bilateral basilar pulmonary infiltrates and atelectasis. Cholelithiasis. At that time said liver spleen pancreas appear intact. Bile ducts not dilated. Gallbladder intact. Small calcified gallstones. Admitting labs included a total bilirubin of 0.9 AST 26 ALT 44 alkaline phosphatase 110. 05/15/2022. Patient was seen and examined today as a follow-up. He is lying in bed. He states that he has some nausea, denies any vomiting or abdominal pain. Patient still nothing by mouth with TPN running. 2 feedings continue to remain on hold and patient is being followed closely by general surgery. Again patient's vancomycin has been discontinued he is now on doxycycline and Zosyn. Amiodarone has been resumed. LFTs have stabilized and are actually slightly declining. Again likely all related to medication induced acute hepatitis po ssible etiology includes Bactrim and Augmentin which he was on prior to hospitalization as well as vancomycin. Have to also consider amiodarone as a good possibility and may need to consider alternative medication. Objective - Vital Signs Vital signs: Vital Signs Temp 98.1 F 05/15/22 08:00 Pulse 81 05/15/22 08:00 Resp 20 05/15/22 08:00 BP 175/85 05/15/22 08:00 Pulse Ox 93 L 05/15/22 08:00 FiO2 Intake & Output 05/14/22 05/15/22 05/15/22 18:59 06:59 18:59 Intake Total 1000 Output Total 2099 2124 Balance -1099 -2124 Weight 102 kg 98.5 kg Intake: Intake, IV Titration 1000 Amount Amino Acid 5%-D15w+Lytes* 1000 E* 1,000 ml @ 75 mls/hr IV .BY DURATION NOE Rx#: [id number] Output: Gastric Drainage 225 Urine 2100 1900 Other: Voiding Method Incontinent Incontinent External Catheter External Catheter # Bowel Movements 1 - Exam General appearance: The patient is alert, oriented, appears in no acute distress. HET: Head is normocephalic and atraumatic. Conjunctiva pink. Sclera anicteric. Neck: Supple without lymphadenopathy. Abdomen: Soft, nontender, nondistended with PEG tube in place. No guarding or rigidity. Extremities: Normal skin color and turgor. No pedal edema Skin: No rashes, no jaundice Neurological: Alert and oriented. Dysarthric. - Labs CBC & Chem 7: 05/14/22 04:14 05/15/22 04:50 Labs: Abnormal Lab Results - Last 24 Hours (Table) 05/14/22 05/14/22 05/14/22 Range/Units 04:14 04:14 12:23 WBC 20.29 H (4.50-10.00) X 10*3/uL RBC 2.87 L (4.40-5.60) X 10*6/uL Hgb 9.2 L (13.0-17.0) g/dL Hct 29.1 L (39.6-50.0) % MCV 101.4 H (80.0-97.0) fL MCH 32.1 H (27.0-32.0) pg MCHC 31.6 L (32.0-37.0) g/dL RDW 14.8 H (11.5-14.5) % Immature Gran # 0.20 H (0.00-0.04) X 10*3/uL Neutrophils # 17.92 H (1.80-7.70) X 10*3/uL Lymphocytes # 0.64 L (0.90-5.00) X 10*3/uL Monocytes # 1.18 H (0.20-1.00) X 10*3/uL Chloride 112 H (96-109) mmol/L Anion Gap 6.20 L (10.00-18.00) mmol/L BUN 34.9 H (9.0-27.0) mg/dL BUN/Creatinine Ratio 34.90 H (12.00-20.00) Ratio Glucose 119 H (70-110) mg/dL Calcium 8.3 L (8.7-10.3) mg/dL AST 564 H (17-59) U/L ALT 479 H (4-49) U/L Alkaline Phosphatase 314 H (38-126) U/L Total Protein (6.3-8.2) g/dL Albumin (3.5-5.0) g/dL 05/15/22 Range/Units 04:50 WBC (4.50-10.00) X 10*3/uL RBC (4.40-5.60) X 10*6/uL Hgb (13.0-17.0) g/dL Hct (39.6-50.0) % MCV (80.0-97.0) fL MCH (27.0-32.0) pg MCHC (32.0-37.0) g/dL RDW (11.5-14.5) % Immature Gran # (0.00-0.04) X 10*3/uL Neutrophils # (1.80-7.70) X 10*3/uL Lymphocytes # (0.90-5.00) X 10*3/uL Monocytes # (0.20-1.00) X 10*3/uL Chloride (96-109) mmol/L Anion Gap (10.00-18.00) mmol/L BUN (9.0-27.0) mg/dL BUN/Creatinine Ratio (12.00-20.00) Ratio Glucose (70-110) mg/dL Calcium (8.7-10.3) mg/dL AST 552 H (17-59) U/L ALT 554 H (4-49) U/L Alkaline Phosphatase 306 H (38-126) U/L Total Protein 4.0 L (6.3-8.2) g/dL Albumin 1.7 L (3.5-5.0) g/dL Microbiology - Last 24 Hours (Table) 05/13/22 04:23 Blood Culture - Preliminary Blood No Growth after 48 hours Assessment and Plan (1) Acute hepatitis Narrative/Plan: 76-year-old male who has been here mid April for dysphagia also found to be a possible CVA, aspiration pneumonia as well as MRSA positive for infected pressure ulcers was been on multiple antibiotics has had elevated LFTs that has continued to increase. Likely medication induced hepatitis related to antibiotics as well as acetaminophen in a patient who denies any previous history of liver disease. Denies any previous history of alcoholism or fatty liver disease. Will order acute hepatitis panel, awaiting repeat CT of the abdomen may consider ultrasound of liver. Initial CT of the abdomen did show cholelithiasis without any CBD dilation. Patient denies any abdominal pain. LFTs are stabilized and actually trending down. Patient had been on Bactrim prior to hospitalization as well as Augmentin during the early part of this hospitalization. Patient was on vancomycin for MRSA infection which has been discontinued and patient is now on Zosyn and doxycycline. Acute hepatitis again likely related to medication antibiotics need to be considered as well as amiodarone which a common side effect is elevated AST and ALT. Consider alternative medications. Current Visit: Yes Status: Acute Code(s): B17.9 - ACUTE VIRAL HEPATITIS, UNSPECIFIED SNOMED Code(s): 71537040 (2) Dysphagia Current Visit: Yes Status: Acute Code(s): R13.10 - DYSPHAGIA, UNSPECIFIED SNOMED Code(s): 51059677 (3) Weakness Current Visit: Yes Status: Acute Code(s): R53.1 - WEAKNESS SNOMED Code(s): 24161483 (4) Atrial fibrillation Current Visit: No Status: Acute Code(s): I48.91 - UNSPECIFIED ATRIAL FIBRILLATION SNOMED Code(s): 77133017 (5) CVA (cerebral infarction) Current Visit: No Status: Acute Code(s): I63.9 - CEREBRAL INFARCTION, UNSPECIFIED SNOMED Code(s): 128488425 (6) MRSA (methicillin resistant staph aureus) culture positive Current Visit: Yes Status: Acute Code(s): Z22.322 - CARRIER OR SUSPECTED CARRIER OF METHICILLIN RESIS STAPH SNOMED Code(s): 883360818 Plan: 1. Continue symptomatic and supportive care 2. Daily CMP 3. Avoid hepatotoxic medications, consider alternative to amiodarone, continue to monitor LFTs on current antibiotics 4. Await CT abdomen results Thank you for this consultation, we will continue to follow Dr. Sarah Post I agree with the dictator's note, documented as a scribe by Jami Patel.
[2022-05-15] MEDS: SODIUM CHLORIDE 0.9% 1,000 ML IV SCH (11:23)
[2022-05-15] MEDS: THIAMINE 100 MG/ML 2 ML VIAL IVP SCH (13:20)
--- NOTE | 2022-05-15 15:12 | P.PN ---
Subjective Progress Note Date: 05/15/22 CHIEF COMPLAINT: Dysphagia HISTORY OF PRESENT ILLNESS: Patient is status post PEG tube placement 04/30/22. Patient had PEG tube is to drainage. Patient having bilious drainage. Patient denies any abdominal pain. Patient d continues to have nausea. No vomiting. Afebrile. WBC 20.2 from yesterday LFTs elevated PHYSICAL EXAM: VITAL SIGNS: Reviewed. GENERAL: Well-developed in no acute distress. ABDOMEN: Soft. Mildly distended. Nontender. PEG tube site clean dry and intact. PEG tube connected to Luo catheter bag with bilious output NEUROLOGIC: Alert and oriented. Cranial nerves II through XII grossly intact. ASSESSMENT: 1. Dysphagia status post PEG tube placement 2. Severe protein calorie malnutrition 3. History of CVA 4. Possible aspiration pneumonia 5. Dilation of stomach 6. Elevated LFTs likely medication induced per GI service 7. Leukocytosis 8. Possible enterocolitis on computed tomography scan PLAN: -Continue to hold tube feeds -Due to gaseous dilation of stomach continue PEG tube to drainage -Keep patient NPO -Continue Reglan -Repeat LFTs in a.m. -Continue supportive care -Continue antiemetics as needed -Continue TPN for nutrition support Physician Route Sales Delivery Driver note has been reviewed by physician. Signing provider agrees with the documented findings, assessment, and plan of care. Patient still feels weak. Some shortness of breath increased today. Denies abdominal pain. Some nausea. Gastric output is bilious. Continue TPN and gastrostomy tube to drainage. Objective - Vital Signs Vital signs: Vital Signs Temp 98.5 F 05/15/22 14:00 Pulse 84 05/15/22 14:00 Resp 16 05/15/22 14:00 BP 152/73 05/15/22 14:00 Pulse Ox 90 L 05/15/22 14:00 FiO2 Intake & Output 05/14/22 05/15/22 05/15/22 18:59 06:59 18:59 Intake Total 1000 1000 Output Total 2099 2124 1200 Balance -1100 -1125 -1200 Weight 102 kg 98.5 kg Intake: Intake, IV Titration 1000 1000 Amount Amino Acid 5%-D15w+Lytes* 1000 1000 E* 1,000 ml @ 75 mls/hr IV .BY DURATION NOE Rx#: [id number] Output: Gastric Drainage 225 Urine 2100 1900 1200 Other: Voiding Method Incontinent Incontinent External Catheter External Catheter # Bowel Movements 1 1 - Labs CBC & Chem 7: 05/14/22 04:14 05/15/22 04:50 Labs: Abnormal Lab Results - Last 24 Hours (Table) 05/15/22 05/15/22 05/15/22 Range/Units 04:50 04:50 04:58 Chloride 113 H (96-109) mmol/L Anion Gap 9.80 L (10.00-18.00) mmol/L BUN 33.7 H (9.0-27.0) mg/dL BUN/Creatinine Ratio 35.10 H (12.00-20.00) Ratio Glucose 129 H (70-110) mg/dL Calcium 8.4 L (8.7-10.3) mg/dL AST 552 H (17-59) U/L ALT 554 H (4-49) U/L Alkaline Phosphatase 306 H (38-126) U/L Total Protein 4.0 L (6.3-8.2) g/dL Albumin 1.7 L (3.5-5.0) g/dL Vitamin B12 >1800.0 H (200.0-944.0) pg/mL Folate 3.70 L (4.40-31.00) ng/mL Microbiology - Last 24 Hours (Table) 05/13/22 04:23 Blood Culture - Preliminary Blood No Growth after 48 hours
[2022-05-15] MEDS: CYANOCOBALAMIN 500 MCG TAB PO SCH (15:40)
[2022-05-15] MEDS: CHOLECALCIFEROL 25 MCG (1000 IU) TABLET PO SCH (15:40)
--- NOTE | 2022-05-15 15:55 | P.PN ---
Subjective Progress Note Date: 05/15/22 Progress note date of service 05/15/[address] Iniguez Discussed with the patient and his in the latency of time with almost 30 minutes other than seeing the patient and evaluating him Also discussed with Dr. Parham and I did express Dr. Dean opinion to 2 the patient with the situation is very guarded and patient on nothing by mouth as well as he is on TPN as well as he is on PICC line for the antibiotic. Patient has progressively abnormal liver enzyme above the 500 and we did consult gastroenterology with the acute hepatitis and they did not advise with a steroid but they said they could be with the association with antibiotic or amiodarone by the dictation from the nurse of dictation. I did send the communication to the RN contact the cardiology in consultation for adjustment of the amiodarone that he currently takes 200 mg once a day. I did also communicate with Dr. Crain infectious disease and he discontinued the tetracycline. Patient on currently Zosyn IV piggyback with aspiration pneumonia and he had full dose for MRSA during his hospitalization with vancomycin which she discontinued Patient has ileus of the small bowel with the associated distention and vomiting and aspiration pneumonia however currently the stomach is drained through the PEG tube connected to independent drainage With the prolonged starvation despite that he had TPN has been recently started and the failure of PEG tube and enteral the feeding to be continued and patient now on nothing by mouth. Found in his laboratory that he had a severe protein calorie deficiency with severely low albumin and protein, as well as his pre-albumin is 5 with the possibility deficiency and vitamin B-1 which was ordered but the result is not available and patient started on thiamine/B-1 100 mg IV once daily. Also with the laboratory found that his folic acid is low and despite the patient is receiving folic acid in the TPN every other day and we increased the dose of the folic acid to communicate the deficiency as I did spoke with the clinical pharmacist in the hospital. I did discuss clearly with the the guarded prognosis to poor and the opinion of Dr. Parham as well due to difficulties with feeding through the stomach with the PEG tube. Dr. Dean opinion that patient may be withholding the feeding through the stomach PEG tube for one week and continue the nutritional support through PIC line with the ability to transfer the patient to [facility] that can be able to handle the patient with the TPN and Intralipid, meanwhile after 1 week to 10 days to be reevaluated by Dr. Dean and meanwhile to recheck during his presence in the [facility] if the bowels start to work at that time a trial of feeding will be started I did discuss it also with her management Whitley florentino and the discharge planning and currently today communicating with the [facility] on the [facility] if they can accommodate the patient and if any other alternative. Patient still awake alert and he is resistant cough we did consult the pulmonary ordered aspiration pneumonia that they did not address the point of the cough. We tried different medication for the cough but it could be associated with the vocal cord and consultation with the ENT was denied by the ENT considering this situation is outpatient consult. His vital sign 90 8.5F oral, heart rate 84/m regular sinus he had paroxysmal a trial fibrillation however so far we did not have any relapse next respiratory rate was 16 and blood pressure 152/73 with a mean arterial pressure 99. His oxygen saturation 90% on 4 L still hypoxic. Electrolyte indicating that sodium 143 potassium 3.7, chloride 113, carbon dioxide 20.9, his BUN 33, creatinine 1 his blood sugar 129 glucose stable calcium 8.4, EGFR 76.5. Magnesium 2.1, total bilirubin 0.8, unconjugated bilirubin 0.4. AST 552 and a LT 554 with the alkaline phosphatase 306, total protein 4 and albumin 1.7 which indicating severe inflammatory process of the liver Pro-calcitonin on 1212 indicating 0.49 which is still elevated. On exam : Head was normocephalic and atraumatic pupils equal reactive, oropharynx dry with MPO with natural teeth Neck was supple no JVD no thyromegaly no lymphadenopathy trachea midline with significant cough Chest decreased air entry with patchy infiltrate and also pleural effusion secondary to hypoproteinemia with anasarca. A computed tomography scan of the abdomen and the chest x-ray Heart regular sinus rhythm history of atrial fib on the role to and he is also on amiodarone per cardiology at 200 mg and we will be requesting evaluation from the cardiology with the elevated liver enzyme and the use of amiodarone as well as he is on Xarelto and aspirin for their opinion and treatment if needed Abdomen on exam no tenderness and the PEG tube feeding connected to drainage and there is episode of acidemic teen and Carafate was added to the program as well as PPI IV Extremities: He had right-sided hemiplegia with the presence of bihemispheric acute CVA with considering of the embolization also he had left frontal parietal enhancement 1.6 and he had subsequently bone scan which showed to be presence [address] Pathak hematology oncology did see the patient ordered laboratory however we did not have any of these lab results to rule out multiple myeloma as cardiology was thoughts of that and he has no evidence of metastasis no cancer except for the prostate that has been normal PSA with a treated at that time with radiation. Right heel debridement by Dr. Qiu vascular surgeon was found to be MRSA which has been treated with vancomycin and result still continuing the dressing. And he had heel protector He has external catheter for urine drainage. And PICC line in the left arm for infusion of the TPN and Intralipid. Patient on vitamin B12 and has been stable level. At assessment: #1 prognosis guarded to poor #2 persistent ileus. #3 recurrent aspiration pneumonia #4 acute hepatitis with progressive elevation of liver enzyme. #5 nothing by mouth due to recurrent coughing and vomiting and aspiration with the no obstruction in the passage by the computed tomography scan but presence of ileus #6 protein calorie deficiency severe #7 anasarca with the hypo-proteinemia hypoalbuminemia with the pre-albumin is 5. Plan: #1 I spoke with the pharmacy clinical pharmacist with the low folic acid as they will accumulated with the TPN as well as the vitamin B1 thiamine due to prolonged starvation It #2 discussed with the care management #3 discussed with the patient will agreed. #[address] Parham #5 requesting the cardiology evaluation for the amiodarone with the acute hepatitis and his overall to and aspirin #6 requesting from gastroenterology if any other treatment or any need for adding steroid for these acute hepatitis, discontinuation of tetracycline and discontinuation of atorvastatin with the elevated liver enzyme to above 500. #7 positive planning depend on [facility] and the patient family and the insurance Objective - Vital Signs Vital signs: Vital Signs Temp 98.5 F 05/15/22 14:00 Pulse 84 05/15/22 14:00 Resp 16 05/15/22 14:00 BP 152/73 05/15/22 14:00 Pulse Ox 90 L 05/15/22 14:00 FiO2 Intake & Output 05/14/22 05/15/22 05/15/22 18:59 06:59 18:59 Intake Total 1000 1000 Output Total 2100 2125 1200 Balance -1100 -1125 -1200 Weight 102 kg 98.5 kg Intake: Intake, IV Titration 1000 1000 Amount Amino Acid 5%-D15w+Lytes* 1000 1000 E* 1,000 ml @ 75 mls/hr IV .BY DURATION [facility] Rx#: [id number] Output: Gastric Drainage 225 Urine 2100 1900 1200 Other: Voiding Method Incontinent Incontinent External Catheter External Catheter # Bowel Movements 1 1 - Labs CBC & Chem 7: 05/14/22 04:14 05/15/22 04:50 Labs: Abnormal Lab Results - Last 24 Hours (Table) 05/15/22 05/15/22 05/15/22 Range/Units 04:50 04:50 04:58 Chloride 113 H (96-109) mmol/L Anion Gap 9.80 L (10.00-18.00) mmol/L BUN 33.7 H (9.0-27.0) mg/dL BUN/Creatinine Ratio 35.10 H (12.00-20.00) Ratio Glucose 129 H (70-110) mg/dL Calcium 8.4 L (8.7-10.3) mg/dL AST 552 H (17-59) U/L ALT 554 H (4-49) U/L Alkaline Phosphatase 306 H (38-126) U/L Total Protein 4.0 L (6.3-8.2) g/dL Albumin 1.7 L (3.5-5.0) g/dL Vitamin B12 >1800.0 H (200.0-944.0) pg/mL Folate 3.70 L (4.40-31.00) ng/mL Microbiology - Last 24 Hours (Table) 05/13/22 04:23 Blood Culture - Preliminary Blood No Growth after 48 hours
[2022-05-15] MEDS: COLLAGENASE 250 UNIT/GM OINTMENT 30 GM TUBE TOPICAL SCH (19:58)
[2022-05-15] MEDS: MELATONIN 3 MG TABLET PO SCH (19:59)
[2022-05-15] MEDS: MIRTAZAPINE 15 MG TAB PO SCH (19:59)
[2022-05-15] MEDS: guaiFENesin-DM 100-10MG/5ML 10 ML CUP PO PRN (23:08)
[2022-05-16] MEDS: SUCRALFATE 1 GM TAB PO SCH ×5 (00:32→23:21)
[2022-05-16] MEDS: PIPERACILLIN-TAZOBACTAM 3.375 GM in SODIUM CHLORIDE 0.9% 100 ML IVPB SCH ×3 (03:44→21:12)
[2022-05-16] MEDS: FUROSEMIDE 10 MG/ML 4 ML VIAL IV SCH (08:33)
[2022-05-16] MEDS: THIAMINE 100 MG/ML 2 ML VIAL IVP SCH (08:33)
[2022-05-16] MEDS: CYANOCOBALAMIN 500 MCG TAB PO SCH (08:34)
[2022-05-16] MEDS: ASPIRIN 81 MG PO SCH (08:34)
[2022-05-16] MEDS: METOCLOPRAMIDE 5 MG/ML 2 ML VIAL IVP SCH ×3 (08:34→23:21)
[2022-05-16] MEDS: TAMSULOSIN 0.4 MG CAP.ER.24H PO SCH (08:34)
[2022-05-16] MEDS: PANTOPRAZOLE 40 MG/10 ML VIAL IVP SCH (08:34)
[2022-05-16] MEDS: AMIODARONE 200 MG TAB PO SCH (08:34)
[2022-05-16] MEDS: CHOLECALCIFEROL 25 MCG (1000 IU) TABLET PO SCH (08:34)
[2022-05-16] MEDS: TROSPIUM CHLORIDE 20 MG TABLET PO SCH (08:34)
[2022-05-16] MEDS: amLODIPine 5 MG TAB PO SCH (08:34)
[2022-05-16] MEDS: IPRATROPIUM-ALBUTEROL 3 ML NEB INHALATION SCH ×4 (08:45→20:25)
[2022-05-16] MEDS: FORMOTEROL FUMARATE 20 MCG/2 ML NEBU INHALATION SCH ×2 (08:45→20:25)
[2022-05-16] MEDS: BUDESONIDE 1 MG/2 ML NEBU INHALATION SCH ×2 (08:45→20:25)
[2022-05-16] MEDS: SODIUM CHLORIDE 0.9% 1,000 ML IV SCH (08:51)
[2022-05-16 09:12] LABS: Phosphorus 3.1 mg/dL (2.4-5.1)
[2022-05-16 09:34] LABS: African American GFR (CKD) 100.6 (60.0-200.0); Albumin 1.8 g/dL (3.8-4.9); Albumin/Globulin Ratio 0.82 (1.60-3.17); Anion Gap 6.4 mmol/L (10.00-18.00); BUN/Creat Ratio 36.38 Ratio (12.00-20.00); Blood Urea Nitrogen 29.1 mg/dL (9.0-27.0); Calcium 8.3 mg/dL (8.7-10.3); Carbon Dioxide 24.6 mmol/L (20.0-27.5); Globulin 2.2 g/dL (1.6-3.3); Non-African American GFR(CKD) 86.8 (60.0-200.0); Potassium 3.5 mmol/L (3.5-5.5); Total Bilirubin 0.4 mg/dL (0.30-1.20)
--- NOTE | 2022-05-16 10:37 | P.PN ---
Subjective Progress Note Date: 05/13/22 Principal diagnosis: Right heel infected pressure ulcer Patient is a 76 year old male with multiple comorbidities fdc resident noticed to have a worsening pressure ulcer to the right heel status post debridement culture positive for MRSA. On today's evaluation that is 05/13/2022 the patient remains to be afebrile, the patient denies any chest pain , the patient continued to complain of a cough but not bringing up any sputum no vomiting or diarrhea has been reported by nursing staff on any diarrhea Objective - Vital Signs Vital signs: Vital Signs Temp 98.6 F 05/13/22 07:40 Pulse 100 05/13/22 11:05 Resp 18 05/13/22 08:40 BP 165/84 05/13/22 07:40 Pulse Ox 95 05/13/22 07:40 FiO2 Intake & Output 05/12/22 05/13/22 05/13/22 18:59 06:59 18:59 Intake Total 1000 Output Total 1650 Balance -650 Weight 102 kg Intake: Intake, IV Titration 1000 Amount Amino Acid 5%-D15w+Lytes* 1000 E* 1,000 ml @ 60 mls/hr IV .BY DURATION [facility] Rx#: [id number] Output: Gastric Drainage 350 Urine 1300 Other: Voiding Method Incontinent Incontinent Incontinent # Bowel Movements 1 - Exam GENERAL DESCRIPTION: An elderly male lying in bed in no distress RESPIRATORY SYSTEM: Unlabored breathing , decreased breath sounds at bases HEART: S1 S2 regular rate and rhythm , ABDOMEN: Soft , no tenderness EXTREMITIES: Right he is currently dressed no drainage on the dressing - Labs CBC & Chem 7: 05/14/22 04:14 05/16/22 05:49 Labs: Abnormal Lab Results - Last 24 Hours (Table) 05/13/22 05/13/22 05/13/22 Range/Units 04:23 04:23 04:23 WBC 21.60 H (4.50-10.00) X 10*3/uL RBC 2.92 L (4.40-5.60) X 10*6/uL Hgb 9.5 L (13.0-17.0) g/dL Hct 29.4 L (39.6-50.0) % MCV 100.7 H (80.0-97.0) fL MCH 32.5 H (27.0-32.0) pg RDW 14.6 H (11.5-14.5) % Immature Gran # 0.16 H (0.00-0.04) X 10*3/uL Neutrophils # 19.37 H (1.80-7.70) X 10*3/uL Lymphocytes # 0.58 L (0.90-5.00) X 10*3/uL Monocytes # 1.15 H (0.20-1.00) X 10*3/uL Sodium (137-145) mmol/L Chloride (98-107) mmol/L BUN (9-20) mg/dL Glucose (74-99) mg/dL Calcium (8.4-10.2) mg/dL AST 312 H (14-35) U/L ALT 270 H (10-49) U/L Alkaline Phosphatase 209 H (41-126) U/L C-Reactive Protein (<1.0) mg/dL Total Protein 3.9 L (6.2-8.2) g/dL Albumin 1.9 L (3.8-4.9) g/dL Albumin/Globulin Ratio 0.95 L (1.60-3.17) g/dL Procalcitonin 0.49 H (0.02-0.09) ng/mL 05/13/22 Range/Units 04:23 WBC (4.50-10.00) X 10*3/uL RBC (4.40-5.60) X 10*6/uL Hgb (13.0-17.0) g/dL Hct (39.6-50.0) % MCV (80.0-97.0) fL MCH (27.0-32.0) pg RDW (11.5-14.5) % Immature Gran # (0.00-0.04) X 10*3/uL Neutrophils # (1.80-7.70) X 10*3/uL Lymphocytes # (0.90-5.00) X 10*3/uL Monocytes # (0.20-1.00) X 10*3/uL Sodium 136 L (137-145) mmol/L Chloride 111 H (98-107) mmol/L BUN 32 H (9-20) mg/dL Glucose 113 H (74-99) mg/dL Calcium 8.0 L (8.4-10.2) mg/dL AST 326 H (14-35) U/L ALT 253 H (10-49) U/L Alkaline Phosphatase 203 H (41-126) U/L C-Reactive Protein 18.1 H (<1.0) mg/dL Total Protein 3.9 L (6.2-8.2) g/dL Albumin 1.7 L (3.8-4.9) g/dL Albumin/Globulin Ratio (1.60-3.17) g/dL Procalcitonin (0.02-0.09) ng/mL Assessment and Plan (1) Open wound of right heel Current Visit: Yes Status: Acute Code(s): S91.301A - UNSPECIFIED OPEN WOUND, RIGHT FOOT, INITIAL ENCOUNTER SNOMED Code(s): 584904507 (2) MRSA (methicillin resistant staph aureus) culture positive Current Visit: Yes Status: Acute Code(s): Z22.322 - CARRIER OR SUSPECTED CARRIER OF METHICILLIN RESIS STAPH SNOMED Code(s): 005212316 Plan: 1patient with right heel infected pressure ulcer in this patient with status post surgical debridement did not mention any extension down to the bone however will be discussed further with the vascular surgery culture now showing presumptive MRSA patient did have a low-grade fever and mild elevated white count with a left shift. 2 Patient has received adequate vancomycin we will switch him over to oral doxycycline down the PEG tube for his right infection. 3patient with worsening of the white count with a chest x-ray did shows new airspace opacity predominantly in the upper lungs left hilar region concerning for possible aspiration pneumonia we will try to obtain a sputum and start the patient on Zosyn Time with Patient: Less than 30
--- NOTE | 2022-05-16 10:39 | P.PN ---
Subjective Progress Note Date: 05/14/22 Principal diagnosis: Right heel infected pressure ulcer Patient is a 76 year old male with multiple comorbidities intermediate resident noticed to have a worsening pressure ulcer to the right heel status post debridement culture positive for MRSA. On today's evaluation that is 05/14/2022 the patient continues to be afebrile, the patient denies any chest pain , the patient still complaining of a cough but not bringing up any sputum , no vomiting or diarrhea has been reported by nursing staff or any worsening pain to the right heel wound area Objective - Vital Signs Vital signs: Vital Signs Temp 98.0 F 05/14/22 08:00 Pulse 90 05/14/22 12:15 Resp 17 05/14/22 08:00 BP 166/72 05/14/22 08:00 Pulse Ox 94 L 05/14/22 08:00 FiO2 Intake & Output 05/13/22 05/14/22 05/14/22 18:59 06:59 18:59 Intake Total 1000 Balance 1000 Weight 102 kg 102 kg Intake: Intake, IV Titration 1000 Amount Amino Acid 5%-D15w+Lytes* 1000 E* 1,000 ml @ 75 mls/hr IV .BY DURATION [facility] Rx#: [id number] Other: Voiding Method Incontinent Incontinent External Catheter - Exam GENERAL DESCRIPTION: An elderly male lying in bed in no distress RESPIRATORY SYSTEM: Unlabored breathing , decreased breath sounds at bases HEART: S1 S2 regular rate and rhythm , ABDOMEN: Soft , no tenderness EXTREMITIES: Right he is currently dressed no drainage on the dressing - Labs CBC & Chem 7: 05/14/22 04:14 05/16/22 05:49 Labs: Abnormal Lab Results - Last 24 Hours (Table) 05/14/22 05/14/22 05/14/22 Range/Units 04:14 04:14 12:23 WBC 20.29 H (4.50-10.00) X 10*3/uL RBC 2.87 L (4.40-5.60) X 10*6/uL Hgb 9.2 L (13.0-17.0) g/dL Hct 29.1 L (39.6-50.0) % MCV 101.4 H (80.0-97.0) fL MCH 32.1 H (27.0-32.0) pg MCHC 31.6 L (32.0-37.0) g/dL RDW 14.8 H (11.5-14.5) % Immature Gran # 0.20 H (0.00-0.04) X 10*3/uL Neutrophils # 17.92 H (1.80-7.70) X 10*3/uL Lymphocytes # 0.64 L (0.90-5.00) X 10*3/uL Monocytes # 1.18 H (0.20-1.00) X 10*3/uL Chloride 112 H (96-109) mmol/L Anion Gap 6.20 L (10.00-18.00) mmol/L BUN 34.9 H (9.0-27.0) mg/dL BUN/Creatinine Ratio 34.90 H (12.00-20.00) Ratio Glucose 119 H (70-110) mg/dL Calcium 8.3 L (8.7-10.3) mg/dL AST 564 H (17-59) U/L ALT 479 H (4-49) U/L Alkaline Phosphatase 314 H (38-126) U/L Microbiology - Last 24 Hours (Table) 05/13/22 04:23 Blood Culture - Preliminary Blood No Growth after 24 hours Assessment and Plan (1) Open wound of right heel Current Visit: Yes Status: Acute Code(s): S91.301A - UNSPECIFIED OPEN WOUND, RIGHT FOOT, INITIAL ENCOUNTER SNOMED Code(s): 488460330 (2) MRSA (methicillin resistant staph aureus) culture positive Current Visit: Yes Status: Acute Code(s): Z22.322 - CARRIER OR SUSPECTED CARRIER OF METHICILLIN RESIS STAPH SNOMED Code(s): 498399379 Plan: 1patient with right heel infected pressure ulcer in this patient with status post surgical debridement did not mention any extension down to the bone however will be discussed further with the vascular surgery culture now showing presumptive MRSA patient did have a low-grade fever and mild elevated white count with a left shift. 2 Patient has received adequate vancomycin we will switch him over to oral doxycycline down the PEG tube for his right infection. 3patient with worsening of the white count with a chest x-ray did shows new airspace opacity predominantly in the upper lungs left hilar region concerning for possible aspiration pneumonia, patient has been started on Zosyn white count is slightly down we will try to obtain a sputum to narrow his antibiotics Time with Patient: Less than 30
--- NOTE | 2022-05-16 10:40 | P.PN ---
Subjective Progress Note Date: 05/15/22 Principal diagnosis: Right heel infected pressure ulcer Patient is a 76 year old male with multiple comorbidities correction resident noticed to have a worsening pressure ulcer to the right heel status post debridement culture positive for MRSA. On today's evaluation that is 05/15/2022 the patient denies any fever or any chills, the patient denies any chest pain , the patient did have occasional dry cough, some nausea but no vomiting no abdominal pain or diarrhea has been reported by the nursing staff Objective - Vital Signs Vital signs: Vital Signs Temp 98.5 F 05/15/22 14:00 Pulse 84 05/15/22 14:00 Resp 16 05/15/22 14:00 BP 152/73 05/15/22 14:00 Pulse Ox 90 L 05/15/22 14:00 FiO2 Intake & Output 05/14/22 05/15/22 05/15/22 18:59 06:59 18:59 Intake Total 1000 1000 Output Total 2100 2125 1200 Balance -1100 -1125 -1200 Weight 102 kg 98.5 kg Intake: Intake, IV Titration 1000 1000 Amount Amino Acid 5%-D15w+Lytes* 1000 1000 E* 1,000 ml @ 75 mls/hr IV .BY DURATION [facility] Rx#: [id number] Output: Gastric Drainage 225 Urine 2100 1900 1200 Other: Voiding Method Incontinent Incontinent External Catheter External Catheter # Bowel Movements 1 1 - Exam GENERAL DESCRIPTION: An elderly male lying in bed in no distress RESPIRATORY SYSTEM: Unlabored breathing , decreased breath sounds at bases HEART: S1 S2 regular rate and rhythm , ABDOMEN: Soft , no tenderness EXTREMITIES: Right he is currently dressed no drainage on the dressing - Labs CBC & Chem 7: 05/14/22 04:14 05/16/22 05:49 Labs: Abnormal Lab Results - Last 24 Hours (Table) 05/15/22 05/15/22 05/15/22 Range/Units 04:50 04:50 04:58 Chloride 113 H (96-109) mmol/L Anion Gap 9.80 L (10.00-18.00) mmol/L BUN 33.7 H (9.0-27.0) mg/dL BUN/Creatinine Ratio 35.10 H (12.00-20.00) Ratio Glucose 129 H (70-110) mg/dL Calcium 8.4 L (8.7-10.3) mg/dL AST 552 H (17-59) U/L ALT 554 H (4-49) U/L Alkaline Phosphatase 306 H (38-126) U/L Total Protein 4.0 L (6.3-8.2) g/dL Albumin 1.7 L (3.5-5.0) g/dL Vitamin B12 >1800.0 H (200.0-944.0) pg/mL Folate 3.70 L (4.40-31.00) ng/mL Microbiology - Last 24 Hours (Table) 05/13/22 04:23 Blood Culture - Preliminary Blood No Growth after 48 hours Assessment and Plan (1) Open wound of right heel Current Visit: Yes Status: Acute Code(s): S91.301A - UNSPECIFIED OPEN WOUND, RIGHT FOOT, INITIAL ENCOUNTER SNOMED Code(s): 361393792 (2) MRSA (methicillin resistant staph aureus) culture positive Current Visit: Yes Status: Acute Code(s): Z22.322 - CARRIER OR SUSPECTED CARRIER OF METHICILLIN RESIS STAPH SNOMED Code(s): 035967129 Plan: 1patient with right heel infected pressure ulcer in this patient with status post surgical debridement did not mention any extension down to the bone however will be discussed further with the vascular surgery culture now showing presumptive MRSA patient did have a low-grade fever and mild elevated white count with a left shift. 2 Patient has received adequate vancomycin for his right heel infection which was mostly superficial now with concern for possible elevated liver enzymes clinically doubt doxycycline has done and I will go ahead and hold it for now as per discussion with his admitting physician 3patient with chest x-ray did shows new airspace opacity predominantly in the upper lungs left hilar region concerning for possible aspiration pneumonia, patient to continue with the Zosyn and monitor clinical course closely Time with Patient: Less than 30
[2022-05-16] MEDS ORDERED: POTASSIUM CHLORIDE 20 MEQ in WATER FOR INJECTION 1 100ML.BAG IVPB ONE (11:30)
--- NOTE | 2022-05-16 11:52 | P.PN ---
Subjective Progress Note Date: 05/16/22 Principal diagnosis: Elevated LFTs This is a pleasant 76-year-old male who initially came to the emergency department for evaluation of weakness difficulty eating on 04/24/2022. Apparently patient had a recent hospital admission for urinary tract infection was discharged to rehab and continued to have increased weakness and was brought back for further evaluation. 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 Apparently patient had been complaining of decreased appetite and difficulty with swallowing. He reportedly had approximately 20 pound weight loss in last menstruation. Patient had a CT of the abdomen and pelvis that reported no evidence of free air. Renal cortical cysts. No renal solid mass or obst ruction. Arthrosclerotic vascular disease. Bilateral basilar pulmonary infiltrate and atelectasis. Cholelithiasis. Patient was seen and evaluated by speech therapy who reported that oral and pharyngeal phases of swallowing appear to be normal. With timing of swallow initiation with no signs or symptoms of aspiration/penetration exhibited with trials. Patient had reported sensation of solid stevan crackers sticking however was able to clear with liquid wash. They have recommended patient be on a dysphagia level III chopped diet and thin liquids. Patient had a PEG tube placed by Dr. Dean on 04/30/22, since then he has had some abdominal distention and the PEG tube feedings have been placed on hold. PEG tube has been on independent drainage with bile. CT of the abdomen and pelvis has been ordered. Patient has also infected pressure ulcers and is currently on IV antibiotics as well as had some aspiration pneumonia noted when he first was admitted and was started on anabiotic's at that time as well. Patient had been on Augmentin and Cipro prior to admission. Augmentin was d iscontinued on 05/03/2022, Cipro was discontinued on 04/24/2022. Patient was then started on vancomycin for MRSA which was discontinued on 05/13/2022. Patient is now on Zosyn and doxycycline per recommendations from infectious disease. Patient was noted to have mild elevation in his LFTs after admission with continued increase. Gastroenterology was consulted for elevated LFTs. Patient denies any history of previous liver disease, denies any history of alcohol abuse in the past or currently. No history of fatty liver, or hepatitis. Patient also had been on IV acetaminophen during this ho spitalization which has been discontinued as well. He denies any other new medications prior to coming into the emergency department. This patient initially had a CT of the abdomen and pelvis on 04/27/2022 with contrast that showed no evidence of free air. Renal cortical cyst. No renal solid mass or obstruction. Arthrosclerotic vascular disease. Bilateral basilar pulmonary infiltrates and atelectasis. Cholelithiasis. At that time said liver spleen pancreas appear intact. Bile ducts not dilated. Gallbladder intact. Small calcified gallstones. Admitting labs included a total bilirubin of 0.9 AST 26 ALT 44 alkaline phosphatase 110. 05/15/2022. Patient was seen and examined today as a follow-up. He is lying in bed. He states that he has some nausea, denies any vomiting or abdominal pain. Patient still nothing by mouth with TPN running. 2 f He remains on TPN.eedings continue to remain on hold and patient is being followed closely by general surgery. Again patient's vancomycin has been discontinued he is now on doxycycline and Zosyn. Amiodarone has been resumed. LFTs have stabilized and are actually slightly declining. Again likely all related to medication induced acute hepatitis possible etiology includes Bactrim and Augmentin which he was on prior to hospitalization as well as vancomycin. Have to also consider amiodarone as a good possibility and may need to consider alternative medication. 05/16/2022. Patient seen and examined as a follow-up. LFTs continue to trend down. No acute changes through the night.he remains on TPN. Objective - Vital Signs Vital signs: Vital Signs Temp 99.3 F 05/16/22 07:39 Pulse 72 05/16/22 09:11 Resp 16 05/16/22 07:39 BP 153/79 05/16/22 07:39 Pulse Ox 91 L 05/16/22 07:39 FiO2 Intake & Output 05/15/22 05/16/22 05/16/22 18:59 06:59 18:59 Output Total 1200 700 Balance -1200 -700 Weight 98.5 kg 93 kg Output: Urine 1200 700 Other: Voiding Method Incontinent External Catheter # Voids 4 # Bowel Movements 1 1 - Exam General appearance: The patient is alert, oriented, appears in no acute distress. HET: Head is normocephalic and atraumatic. Conjunctiva pink. Sclera anicteric. Neck: Supple without lymphadenopathy. Abdomen: Soft, nontender, nondistended with PEG tube in place. No guarding or rigidity. Extremities: Normal skin color and turgor. No pedal edema Skin: No rashes, no jaundice Neurological: Alert and oriented. Dysarthric. - Labs CBC & Chem 7: 05/14/22 04:14 05/16/22 05:49 Labs: Abnormal Lab Results - Last 24 Hours (Table) 05/16/22 Range/Units 05:49 Chloride 113 H (96-109) mmol/L Anion Gap 6.40 L (10.00-18.00) mmol/L BUN 29.1 H (9.0-27.0) mg/dL BUN/Creatinine Ratio 36.38 H (12.00-20.00) Ratio Glucose 131 H (70-110) mg/dL Calcium 8.3 L (8.7-10.3) mg/dL AST 244 H (14-35) U/L ALT 430 H (10-49) U/L Alkaline Phosphatase 292 H (41-126) U/L Total Protein 4.0 L (6.2-8.2) g/dL Albumin 1.8 L (3.8-4.9) g/dL Albumin/Globulin Ratio 0.82 L (1.60-3.17) g/dL Microbiology - Last 24 Hours (Table) 05/13/22 04:23 Blood Culture - Preliminary Blood No Growth after 72 hours Assessment and Plan (1) Acute hepatitis Narrative/Plan: 76-year-old male who has been here mid April for dysphagia also found to be a possible CVA, aspiration pneumonia as well as MRSA positive for infected pr essure ulcers was been on multiple antibiotics has had elevated LFTs that has continued to increase. Likely medication induced hepatitis related to antibiotics as well as acetaminophen in a patient who denies any previous history of liver disease. Denies any previous history of alcoholism or fatty liver disease. Will order acute hepatitis panel, awaiting repeat CT of the abdomen may consider ultrasound of liver. Initial CT of the abdomen did show cholelithiasis without any CBD dilation. Patient denies any abdominal pain. LFTs are stabilized and actually trending down. Patient had been on Bactrim prior to hospitalization as well as Augmentin during the early part of this hospitalization. Patient was on vancomycin for MRSA infection which has been discontinued and patient is now on Zosyn and doxycycline. Acute hepatitis again likely related to medication antibiotics need to be considered as well as amiodarone which a common side effect is elevated AST and ALT. Consider alternative medications. Current Visit: Yes Status: Acute Code(s): B17.9 - ACUTE VIRAL HEPATITIS, UNSPECIFIED SNOMED Code(s): 17289090 (2) Dysphagia Current Visit: Yes Status: Acute Code(s): R13.10 - DYSPHAGIA, UNSPECIFIED SNOMED Code(s): 45788278 (3) Weakness Current Visit: Yes Status: Acute Code(s): R53.1 - WEAKNESS SNOMED Code(s): 30502632 (4) Atrial fibrillation Current Visit: No Status: Acute Code(s): I48.91 - UNSPECIFIED ATRIAL FIBRILLATION SNOMED Code(s): 66906542 (5) CVA (cerebral infarction) Current Visit: No Status: Acute Code(s): I63.9 - CEREBRAL INFARCTION, UNSPECIFIED SNOMED Code(s): 085257660 (6) MRSA (methicillin resistant staph aureus) culture positive Current Visit: Yes Status: Acute Code(s): Z22.322 - CARRIER OR SUSPECTED CARRIER OF METHICILLIN RESIS STAPH SNOMED Code(s): 029902092 Plan: 1. Continue symptomatic and supportive care 2. Daily CMP 3. Avoid hepatotoxic medications, consider alternative to amiodarone, continue to monitor LFTs on current antibiotics 4. no further workup indicated, LFTs trending down, again likely medication induced acute hepatitis Thank you for this consultation, we will continue to follow Dr. Sarah Post I agree with the dictator's note, documented as a scribe by Jami Patel.
--- NOTE | 2022-05-16 13:16 | P.PN ---
Subjective Progress Note Date: 05/16/22 CHIEF COMPLAINT: Dysphagia HISTORY OF PRESENT ILLNESS: Patient is status post PEG tube placement 04/30/22. Patient currently has PEG tube is to drainage with bilious drainage because of gaseous dilation of stomach. Patient denies any abdominal pain. Patient denies any nausea or vomiting. He is having bowel movements. Afebrile. Sodium 144 potassium 2.5 creatinine 0.8 LFTs trending down PHYSICAL EXAM: VITAL SIGNS: Reviewed. GENERAL: Well-developed in no acute distress. ABDOMEN: Soft. Mildly distended. Nontender. PEG tube site clean dry and intact. PEG tube connected to Luo catheter bag with bilious output NEUROLOGIC: Alert and oriented. Cranial nerves II through XII grossly intact. ASSESSMENT: 1. Dysphagia status post PEG tube placement 2. Severe protein calorie malnutrition 3. History of CVA 4. Possible aspiration pneumonia 5. Dilation of stomach 6. Elevated LFTs likely medication induced per GI service 7. Leukocytosis 8. Possible enterocolitis on computed tomography scan PLAN: -Continue to hold tube feeds -Due to gaseous dilation of stomach continue PEG tube to drainage -Keep patient NPO -Continue Reglan -Continue supportive care -Continue antiemetics as needed -Continue TPN for nutrition support Physician Vamper note has been reviewed by physician. Signing provider agrees with the documented findings, assessment, and plan of care. I have personally seen and examined the patient, reviewed the EMPLOYEE WELLNESS/FITNESS COORDINATOR /PAs history, exam and MDM and agree with the assessment and plan as written. Based on total visit time, I have performed more than 50% of the visit. As above: Patient complaining of increased cough. Denies abdominal pain. PEG tube remains to dependent drainage. Bilious output noted. Continue TPN and bowel rest. Objective - Vital Signs Vital signs: Vital Signs Temp 99.3 F 05/16/22 07:39 Pulse 74 05/16/22 12:49 Resp 16 05/16/22 07:39 BP 153/79 05/16/22 07:39 Pulse Ox 91 L 05/16/22 07:39 FiO2 Intake & Output 05/15/22 05/16/22 05/16/22 18:59 06:59 18:59 Output Total 1200 700 Balance -1200 -700 Weight 98.5 kg 93 kg Output: Urine 1200 700 Other: Voiding Method Incontinent External Catheter # Voids 4 # Bowel Movements 1 1 - Labs CBC & Chem 7: 05/14/22 04:14 05/16/22 05:49 Labs: Abnormal Lab Results - Last 24 Hours (Table) 05/16/22 Range/Units 05:49 Chloride 113 H (96-109) mmol/L Anion Gap 6.40 L (10.00-18.00) mmol/L BUN 29.1 H (9.0-27.0) mg/dL BUN/Creatinine Ratio 36.38 H (12.00-20.00) Ratio Glucose 131 H (70-110) mg/dL Calcium 8.3 L (8.7-10.3) mg/dL AST 244 H (14-35) U/L ALT 430 H (10-49) U/L Alkaline Phosphatase 292 H (41-126) U/L Total Protein 4.0 L (6.2-8.2) g/dL Albumin 1.8 L (3.8-4.9) g/dL Albumin/Globulin Ratio 0.82 L (1.60-3.17) g/dL Microbiology - Last 24 Hours (Table) 05/13/22 04:23 Blood Culture - Preliminary Blood No Growth after 72 hours
--- NOTE | 2022-05-16 14:02 | P.PN ---
Subjective Progress Note Date: 05/16/22 Dictation on progress note Date of service 05/16/[address] Iniguez, Patient seen today [id number] discussed with his Patient on Agatha chair and he ask himself to be on the Agatha chair as communicated with his nurse and his . Vital sign: Temperature 99.3 F oral, pulse rate 79 bpm regular with a history of atrial fibrillation. Blood pressure 153/79, oxygen saturation 91 4 L. Laboratories: Chemistry AST 244 a LT 430, alk phos 292 total protein 4, albumin 1.8, hepatitis profile a and B and C negative. Vitamin B12 more than 1800 Folic acid 3.7 on the low side and supplemented yesterday after the conversation with the clinical pharmacist in the hospital and increased to 1 mg. Electrolytes sodium 144, potassium 3.5, chloride 113, current dioxide 24.6, BUN 29.1, creatinine 0.8, and glucose 131, EGFR for non- 86.8, calcium 8.3, phosphorus 3.1, NEJM is to. White count 20.9, hemoglobin 9.2, hematocrit 29.1. [id number] exam: Head was normocephalic and atraumatic he is currently on Agatha chair awake alert still had the cough. Oropharynx was negative Neck was supple no JVD no thyromegaly no lymphadenopathy trachea midline. Chest still decreased air entry by lateral with underlying history of aspiration pneumonia currently on Zosyn only IV piggyback, no vancomycin. Heart regular sinus rhythm with the underlying anasarca from protein calorie deficiency. Abdomen: Soft nontender PEG tube in place positive bowel sound today and the plan for start using the PEG tube feeding tomorrow and no nausea no vomiting. Extremities right heel decubitus in the healing process, positive pulses in both feet, Psychiatry stable general condition with the current treatment Neurology he admitted with the bilateral hemispheric CVA acute, as well as left frontal parietal 1.6 enhancement which found in the bone scan that was present 6 years ago with negative bone scan for metastasis ordered by Dr. Pathak. We'll also order some testing to rule out multiple myeloma however we don't have any results on that or any farther.. Patient has right-sided hemiplegia. He had right elbow edema and swelling which has been significantly improved and ultrasound was ordered at that time found to have superficial vein thrombosis secondary to the IV placement and seen by Dr. Qiu the vascular surgeon. Patient had edema and soft tissue swelling with pitting edema after patient pulled out the previous PICC tube, which subsequently removed and reinstated and lower 1 with double-lumen and his edema and swelling in progress improvement. Assessment: Multiple medical problem #1 PDS of the bowel and start of the bowel movement after resting and hopefully tomorrow patient started on PEG tube feeding. #2 a did speak with care management stated that the agency on the [place] refused admission with intravenous feeding with SALES FLOOR MANAGER and Intralipid as well as [facility]. And they still looking for alternative inside the [facility] or outside the [facility]. #3 hypertension is controlled #4 deficiency, folic acid, thiamine probably we don't have the results of the lab yet not available. Which supplemented through the IV TPN. #5 acute hepatitis and we discontinued the Lipitor as well as the doxycycline and requested from cardiology to check on the Xarelto and amiodarone no response yet #6 paroxysmal atrial fibrillation currently in normal sinus #7 severe nutritional deficiency protein calorie with the pre-albumin 5. #8 no evidence of viral hepatitis #9 bilateral aspiration pneumonia #10 anasarca secondary to low protein and albumin Plan #1 continue the TPN and Intralipid and supplementation was vitamin as well as thiamine as well as folic acid. #2 hopefully start feeding tomorrow and a very gradual increasing dose #3 waiting for available bed level with Intralipid as well as a TPN may needed for extra one week if the bowel start to work normally. #4 discussed with his today in detail at bedside thank you Objective - Vital Signs Vital signs: Vital Signs Temp 99.3 F 05/16/22 07:39 Pulse 74 05/16/22 12:49 Resp 16 05/16/22 07:39 BP 153/79 05/16/22 07:39 Pulse Ox 91 L 05/16/22 07:39 FiO2 Intake & Output 05/15/22 05/16/22 05/16/22 18:59 06:59 18:59 Output Total 1200 700 Balance -1200 -700 Weight 98.5 kg 93 kg Output: Urine 1200 700 Other: Voiding Method Incontinent External Catheter # Voids 4 # Bowel Movements 1 1 - Labs CBC & Chem 7: 05/14/22 04:14 05/16/22 05:49 Labs: Abnormal Lab Results - Last 24 Hours (Table) 05/16/22 Range/Units 05:49 Chloride 113 H (96-109) mmol/L Anion Gap 6.40 L (10.00-18.00) mmol/L BUN 29.1 H (9.0-27.0) mg/dL BUN/Creatinine Ratio 36.38 H (12.00-20.00) Ratio Glucose 131 H (70-110) mg/dL Calcium 8.3 L (8.7-10.3) mg/dL AST 244 H (14-35) U/L ALT 430 H (10-49) U/L Alkaline Phosphatase 292 H (41-126) U/L Total Protein 4.0 L (6.2-8.2) g/dL Albumin 1.8 L (3.8-4.9) g/dL Albumin/Globulin Ratio 0.82 L (1.60-3.17) g/dL Microbiology - Last 24 Hours (Table) 05/13/22 04:23 Blood Culture - Preliminary Blood No Growth after 72 hours
[2022-05-16] MEDS ORDERED: amLODIPine 5 MG TAB PO STA (14:30)
--- NOTE | 2022-05-16 14:31 | P.PN ---
Subjective Progress Note Date: 05/16/22 This is a 76-year-old male with a past medical history significant for coronary artery disease with previous angioplasty of LAD, nonsustained ventricular tachycardia, paroxysmal atrial fibrillation, hypertension, and hyperlipidemia. Patient follows in the office with Dr. Post. Patient had recent right hip fracture approximately 1 month ago and anticoagulation was briefly held. He is anticoagulated on an outpatient basis with Xarelto with mention of 15mg daily dosing per chart. Patient presented 04/24 with worsening weakness and difficulty eating. He has been at the rehab center however has had difficulty with eating solid foods and concern of aspiration and has lost approximately 20 pounds. He was seen by neurologist with concern for stroke and had a brain MRI 04/26 with multiple subcentimeter areas compatible with acute ischemia bilaterally. Neurology recommended cardiology evaluation for cardiac source of emboli. 2-D echocardiogram in 03/26/2022 revealed EF 55%, mild mitral regurgitation, mild LVH. 04/30 Patient seen and examined at bedside, he is confused. Lethargic. Oriented x 0. Unable to answer questions appropriately or follow commands. Has no complaints. Patient denies any chest pain or pressure. No shortness breath. Telemetry reviewed patient remains in sinus rhythm. Possible plan for PEG tube and Xarelto is being held 05/16 Cardiology signed off patient's case on 04/30. We have been asked to reevaluate patient due to medication induced acute hepatitis. Liver enzymes are starting to improve. Sodium 144, potassium 3.5, chloride 113, CO2 24, BUN 29 creatinine 0.8. AST 244, ALT 430, alkaline phosphatase 292. We will plan to discontinue amiodarone and place patient on Toprol XL. PHYSICAL EXAM: VITAL SIGNS: Reviewed. GENERAL: Well-developed in no acute distress. HEENT: Head is normocephalic. Neck supple. No JVD LUNGS: Respirations even and unlabored. Lungs diminished in bases to auscultation bilaterally. HEART: Regular rate and rhythm. S1 and S2 heard. + systolic and diastolic murmur. ABDOMEN: Soft. Nondistended. Nontender. EXTREMITIES: No clubbing or cyanosis. Peripheral pulses intact. No lower extremity edema NEUROLOGIC: Lethargic, A/O x 0. ASSESSMENT: Bilateral CVA concerning for cardio embolic etiology Previous hip fracture Paroxysmal atrial fibrillation, currently sinus Hypertension Hyperlipidemia Coronary artery disease with previous stenting of the LAD History of nonsustained ventricular tachycardia Valvular heart disease including moderate to severe aortic regurgitation Dysphagia Acute medication-induced hepatitis PLAN: Amiodarone will be discontinued and patient started on Toprol-XL 25 mg daily Continue patient on Xarelto Increase amlodipine to 10 mg daily for better blood pressure control No further changes at this time from a cardiology perspective. Cardiology will sign off and follow on an as-needed basis. Nurse practitioner note has been reviewed by physician. Signing provider agrees with the documented findings, assessment, and plan of care. Objective - Vital Signs Vital signs: Vital Signs Temp 99.3 F 05/16/22 07:39 Pulse 72 05/16/22 09:11 Resp 16 05/16/22 07:39 BP 153/79 05/16/22 07:39 Pulse Ox 91 L 05/16/22 07:39 FiO2 Intake & Output 05/15/22 05/16/22 05/16/22 18:59 06:59 18:59 Output Total 1200 700 Balance -1200 -700 Weight 98.5 kg 93 kg Output: Urine 1200 700 Other: Voiding Method Incontinent External Catheter # Voids 4 # Bowel Movements 1 1 - Labs CBC & Chem 7: 05/14/22 04:14 05/16/22 05:49 Labs: Abnormal Lab Results - Last 24 Hours (Table) 05/16/22 Range/Units 05:49 Chloride 113 H (96-109) mmol/L Anion Gap 6.40 L (10.00-18.00) mmol/L BUN 29.1 H (9.0-27.0) mg/dL BUN/Creatinine Ratio 36.38 H (12.00-20.00) Ratio Glucose 131 H (70-110) mg/dL Calcium 8.3 L (8.7-10.3) mg/dL AST 244 H (14-35) U/L ALT 430 H (10-49) U/L Alkaline Phosphatase 292 H (41-126) U/L Total Protein 4.0 L (6.2-8.2) g/dL Albumin 1.8 L (3.8-4.9) g/dL Albumin/Globulin Ratio 0.82 L (1.60-3.17) g/dL Microbiology - Last 24 Hours (Table) 05/13/22 04:23 Blood Culture - Preliminary Blood No Growth after 72 hours
[2022-05-16] MEDS: FAT EMULSION 20% 250 ML IV SCH (15:10)
[2022-05-16] MEDS: RIVAROXABAN 20 MG TAB PO SCH (15:10)
--- NOTE | 2022-05-16 16:28 | P.PN ---
Subjective Progress Note Date: 05/16/22 Principal diagnosis: Right heel infected pressure ulcer Patient is a 76 year old male with multiple comorbidities long-term resident noticed to have a worsening pressure ulcer to the right heel status post debridement culture positive for MRSA. On today's evaluation that is 05/16/2022 the patient remains to be afebrile, the patient denies any chest pain , the patient continued to have a dry hacking cough but not available to bring up any sputum, no nausea vomiting no abdominal pain or diarrhea Objective - Vital Signs Vital signs: Vital Signs Temp 99.3 F 05/16/22 07:39 Pulse 74 05/16/22 12:49 Resp 16 05/16/22 07:39 BP 153/79 05/16/22 07:39 Pulse Ox 91 L 05/16/22 07:39 FiO2 Intake & Output 05/15/22 05/16/22 05/16/22 18:59 06:59 18:59 Output Total 1200 700 Balance -1200 -700 Weight 98.5 kg 93 kg Output: Urine 1200 700 Other: Voiding Method Incontinent External Catheter # Voids 4 # Bowel Movements 1 1 - Exam GENERAL DESCRIPTION: An elderly male lying in bed in no distress RESPIRATORY SYSTEM: Unlabored breathing , decreased breath sounds at bases HEART: S1 S2 regular rate and rhythm , ABDOMEN: Soft , no tenderness EXTREMITIES: Right he is currently dressed no drainage on the dressing - Labs CBC & Chem 7: 05/14/22 04:14 05/16/22 05:49 Labs: Abnormal Lab Results - Last 24 Hours (Table) 05/16/22 Range/Units 05:49 Chloride 113 H (96-109) mmol/L Anion Gap 6.40 L (10.00-18.00) mmol/L BUN 29.1 H (9.0-27.0) mg/dL BUN/Creatinine Ratio 36.38 H (12.00-20.00) Ratio Glucose 131 H (70-110) mg/dL Calcium 8.3 L (8.7-10.3) mg/dL AST 244 H (14-35) U/L ALT 430 H (10-49) U/L Alkaline Phosphatase 292 H (41-126) U/L Total Protein 4.0 L (6.2-8.2) g/dL Albumin 1.8 L (3.8-4.9) g/dL Albumin/Globulin Ratio 0.82 L (1.60-3.17) g/dL Microbiology - Last 24 Hours (Table) 05/13/22 04:23 Blood Culture - Preliminary Blood No Growth after 72 hours Assessment and Plan (1) Open wound of right heel Current Visit: Yes Status: Acute Code(s): S91.301A - UNSPECIFIED OPEN WOUND, RIGHT FOOT, INITIAL ENCOUNTER SNOMED Code(s): 608643312 (2) MRSA (methicillin resistant staph aureus) culture positive Current Visit: Yes Status: Acute Code(s): Z22.322 - CARRIER OR SUSPECTED CARRIER OF METHICILLIN RESIS STAPH SNOMED Code(s): 536849207 Plan: 1patient with right heel infected pressure ulcer in this patient with status post surgical debridement did not mention any extension down to the bone however will be discussed further with the vascular surgery culture now showing presumptive MRSA patient did have a low-grade fever and mild elevated white count with a left shift. 2 Patient has received adequate vancomycin for his right heel infection which was mostly superficial now with concern for possible elevated liver enzymes c linically doubt doxycycline has done and I will go ahead and hold it for now as per discussion with his admitting physician 3patient with chest x-ray did shows new airspace opacity predominantly in the upper lungs left hilar region concerning for possible aspiration pneumonia, patient currently be treated with the Zosyn we will recheck his CBC to make sure the white count is trending down and continue supportive care at the bedside questions were answered Time with Patient: Less than 30
[2022-05-16] MEDS: MIRTAZAPINE 15 MG TAB PO SCH (21:11)
[2022-05-16] MEDS: MELATONIN 3 MG TABLET PO SCH (21:11)
[2022-05-16] MEDS: COLLAGENASE 250 UNIT/GM OINTMENT 30 GM TUBE TOPICAL SCH (21:28)
[2022-05-17] MEDS: PIPERACILLIN-TAZOBACTAM 3.375 GM in SODIUM CHLORIDE 0.9% 100 ML IVPB SCH ×3 (03:36→20:21)
[2022-05-17] MEDS: SODIUM CHLORIDE 0.9% 1,000 ML IV SCH (05:43)
[2022-05-17] MEDS: SUCRALFATE 1 GM TAB PO SCH ×4 (05:43→23:10)
[2022-05-17] MEDS: BUDESONIDE 1 MG/2 ML NEBU INHALATION SCH ×2 (09:10→19:18)
[2022-05-17] MEDS: IPRATROPIUM-ALBUTEROL 3 ML NEB INHALATION SCH ×4 (09:10→19:18)
[2022-05-17] MEDS: FORMOTEROL FUMARATE 20 MCG/2 ML NEBU INHALATION SCH ×2 (09:10→19:18)
[2022-05-17] MEDS: METOCLOPRAMIDE 5 MG/ML 2 ML VIAL IVP SCH ×3 (09:32→23:10)
[2022-05-17] MEDS: TROSPIUM CHLORIDE 20 MG TABLET PO SCH (09:32)
[2022-05-17] MEDS: FUROSEMIDE 10 MG/ML 4 ML VIAL IV SCH (09:33)
[2022-05-17] MEDS: TAMSULOSIN 0.4 MG CAP.ER.24H PO SCH (09:33)
[2022-05-17] MEDS: PANTOPRAZOLE 40 MG/10 ML VIAL IVP SCH (09:33)
[2022-05-17] MEDS: METOPROLOL SUCCINATE (ER) 25 MG TAB.ER.24H PO SCH (09:33)
[2022-05-17] MEDS: amLODIPine 10 MG TAB PO SCH (09:33)
[2022-05-17 09:45] LABS: Basophils # (A) 0.03 X 10*3/uL (0.00-0.10); Basophils % (A) 0.1 %; Eosinophils # (A) 0.49 X 10*3/uL (0.04-0.35); Eosinophils % (A) 2.4 %; HCT 27.5 % (39.6-50.0); HGB 9.1 g/dL (13.0-17.0); Immature Grans, Automated 1.2 %; Lymphocytes # (A) 0.75 X 10*3/uL (0.90-5.00); Lymphocytes % (A) 3.7 %; MCHC 33.1 g/dL (32.0-37.0); MCV 99.6 fL (80.0-97.0); Monocytes # (A) 1.22 X 10*3/uL (0.20-1.00); NRBC Per 100 WBC 0 /100 WBCS (0.0-0.0); Neutrophils # (A) 17.68 X 10*3/uL (1.80-7.70); Neutrophils % (A) 86.6 %; Platelet Count 354 X 10*3/uL (140-440); RBC 2.76 X 10*6/uL (4.40-5.60); RDW 15.1 % (11.5-14.5); WBC 20.41 X 10*3/uL (4.50-10.00)
[2022-05-17 09:54] LABS: African American GFR (CKD) 100.6 (60.0-200.0); Albumin 1.8 g/dL (3.8-4.9); Albumin/Globulin Ratio 0.82 (1.60-3.17); BUN/Creat Ratio 33.13 Ratio (12.00-20.00); Blood Urea Nitrogen 26.5 mg/dL (9.0-27.0); C Reactive Protein 12.2 mg/dL (0.00-0.80); Calcium 8.1 mg/dL (8.7-10.3); Globulin 2.2 g/dL (1.6-3.3); Magnesium 2.1 mg/dL (1.5-2.4); Non-African American GFR(CKD) 86.8 (60.0-200.0); Phosphorus 2.8 mg/dL (2.4-5.1); Potassium 3.5 mmol/L (3.5-5.5); Total Bilirubin 0.4 mg/dL (0.30-1.20)
--- NOTE | 2022-05-17 12:03 | P.PN ---
Subjective Progress Note Date: 05/17/22 Principal diagnosis: Right heel infected pressure ulcer Patient is a 76 year old male with multiple comorbidities [facility] resident noticed to have a worsening pressure ulcer to the right heel status post debridement culture positive for MRSA. On today's evaluation that is 05/17/2022 the patient continues to be afebrile, the patient denies any chest pain, the patient did have a cough but no sputum production no abdominal pain no diarrhea has been reported Objective - Vital Signs Vital signs: Vital Signs Temp 99.3 F 05/17/22 07:46 Pulse 88 05/17/22 09:31 Resp 18 05/17/22 07:46 BP 152/76 05/17/22 07:46 Pulse Ox 93 L 05/17/22 07:46 FiO2 Intake & Output 05/16/22 05/17/22 05/17/22 18:59 06:59 18:59 Intake Total 1940 Output Total 1800 1650 Balance -1800 290 Weight 92.5 kg Intake: Intake, IV Titration 1940 Amount Fat Emulsion 20% 250 ml @ 160 20.833 mls/hr IV MoTh@ 1800 [facility] Rx#:[id number] Piperacillin-Tazobactam 3 100 .375 gm In Sodium Chloride 0.9% 100 ml @ 25 mls/hr IVPB Q8H [facility] Rx#: [id number] Potassium Phosphate 15 1080 mmol Sodium Acetate 30 meq Magnesium Sulfate gm 1 gm Calcium Gluconate 1 gm In Amino Acid 5%-D15w 1,000 ml @ 90 mls/hr IV . BY DURATION NOE Rx#: [id number] Sodium Chloride 0.9% 1, 600 000 ml @ 50 mls/hr IV . Q20H [facility] Rx#:[id number] Oral 0 Output: Gastric Drainage 100 Urine 1800 1550 Other: Voiding Method External Catheter # Voids 4 # Bowel Movements 1 - Exam GENERAL DESCRIPTION: An elderly male lying in bed in no distress RESPIRATORY SYSTEM: Unlabored breathing , decreased breath sounds at bases HEART: S1 S2 regular rate and rhythm , ABDOMEN: Soft , no tenderness EXTREMITIES: Right heel as well as right foot plantar wound base with slough tissue no significant surrounding redness or foul-smelling drainage - Labs CBC & Chem 7: 05/17/22 05:57 05/17/22 05:57 Labs: Abnormal Lab Results - Last 24 Hours (Table) 05/17/22 05/17/22 Range/Units 05:57 05:57 WBC 20.41 H (4.50-10.00) X 10*3/uL RBC 2.76 L (4.40-5.60) X 10*6/uL Hgb 9.1 L (13.0-17.0) g/dL Hct 27.5 L (39.6-50.0) % MCV 99.6 H (80.0-97.0) fL MCH 33.0 H (27.0-32.0) pg RDW 15.1 H (11.5-14.5) % Immature Gran # 0.24 H (0.00-0.04) X 10*3/uL Neutrophils # 17.68 H (1.80-7.70) X 10*3/uL Lymphocytes # 0.75 L (0.90-5.00) X 10*3/uL Monocytes # 1.22 H (0.20-1.00) X 10*3/uL Eosinophils # 0.49 H (0.04-0.35) X 10*3/uL Chloride 111 H (96-109) mmol/L Anion Gap 6.00 L (10.00-18.00) mmol/L BUN/Creatinine Ratio 33.13 H (12.00-20.00) Ratio Glucose 120 H (70-110) mg/dL Calcium 8.1 L (8.7-10.3) mg/dL AST 203 H (14-35) U/L ALT 369 H (10-49) U/L Alkaline Phosphatase 289 H (41-126) U/L C-Reactive Protein 12.20 H (0.00-0.80) mg/dL Total Protein 4.0 L (6.2-8.2) g/dL Albumin 1.8 L (3.8-4.9) g/dL Albumin/Globulin Ratio 0.82 L (1.60-3.17) g/dL Microbiology - Last 24 Hours (Table) 05/13/22 04:23 Blood Culture - Preliminary Blood No Growth after 96 hours Assessment and Plan (1) Open wound of right heel Current Visit: Yes Status: Acute Code(s): S91.301A - UNSPECIFIED OPEN WOUND, RIGHT FOOT, INITIAL ENCOUNTER SNOMED Code(s): 924015727 (2) MRSA (methicillin resistant staph aureus) culture positive Current Visit: Yes Status: Acute Code(s): Z22.322 - CARRIER OR SUSPECTED CARRIER OF METHICILLIN RESIS STAPH SNOMED Code(s): 070411615 Plan: 1patient with right heel infected pressure ulcer in this patient with status post surgical debridement did not mention any extension down to the bone however will be discussed further with the vascular surgery culture now showing presumptive MRSA patient did have a low-grade fever and mild elevated white count with a left shift. 2 Patient has received adequate vancomycin for his right heel infection which was mostly superficial now with concern for possible elevated liver enzymes clinically doubt doxycycline has done and I will go ahead and hold it for now as per discussion with his admitting physician 3patient with chest x-ray did shows new airspace opacity predominantly in the upper lungs left hilar region concerning for possible aspiration pneumonia, patient to continue with the Zosyn 4-patient did have persistent elevated white count in this patient has been exposed to antibiotics and is currently on TPN high risk for fungal infection we will start Diflucan and see clinical response Time with Patient: Less than 30
[2022-05-17] MEDS: ASPIRIN 81 MG PO SCH (12:24)
[2022-05-17] MEDS: POTASSIUM CHLORIDE 20 MEQ in WATER FOR INJECTION 1 100ML.BAG IVPB SCH ×2 (13:22→15:25)
[2022-05-17] MEDS: FLUCONAZOLE IN NACL,ISO-OSM 200 MG in SALINE 1 100ML.BAG IVPB SCH (13:23)
--- NOTE | 2022-05-17 13:36 | P.PN ---
Subjective Progress Note Date: 05/17/22 CHIEF COMPLAINT: Dysphagia HISTORY OF PRESENT ILLNESS: Patient is status post PEG tube placement 04/30/22. Patient currently has PEG tube is to dependent drainage with bilious drainage. Patient denies any abdominal pain. Patient denies any nausea or vomiting. He is having bowel movements. Main complaint is cough. Afebrile. WBC is 20 H to be 9.1 sodium is 143 potassium is 3.5 creatinine 0.8 LFTs trending veloped in no acute distress. ABDOMEN: Soft. Mildly distended. Nontender. PEG tube site clean dry and intact. PEG tube connected to Luo catheter bag with bilious output NEUROLOGIC: Alert and oriented. Cranial nerves II through XII grossly intact. ASSESSMENT: 1. Dysphagia status post PEG tube placement 2. Severe protein calorie malnutrition 3. History of CVA 4. Possible aspiration pneumonia 5. Dilation of stomach 6. Elevated LFTs likely medication induced per GI service 7. Leukocytosis 8. Possible enterocolitis on computed tomography scan PLAN: -Continue to hold tube feeds -Due to gaseous dilation of stomach continue PEG tube to drainage -Keep patient NPO -Continue Reglan -Continue supportive care -Continue antiemetics as needed -Continue TPN for nutrition support Physician Loft Worker [employer] note has been reviewed by physician. Signing provider agrees with the documented findings, assessment, and plan of care. I have personally seen and examined the patient, reviewed the COMMUNICATIONS COORDINATOR /PAs history, exam and MDM and agree with the assessment and plan as written. Based on total visit time, I have performed more than 50% of the visit. As above: Patient with some increased dyspnea today. Cough is somewhat better. Denies abdominal pain. Family would like to meet with the hospice team to discuss end-of-life issues. We were asked if we could resume tube feeds at a low rate. I think as long as there is an understanding and that there is a risk of aspiration with resumption of tube feeds and is reasonable to start low-dose tube feeds to see how he tolerates. Begin tube feeds at 10 mL per hour. Objective - Vital Signs Vital signs: Vital Signs Temp 99.3 F 05/17/22 07:46 Pulse 88 05/17/22 12:29 Resp 18 05/17/22 07:46 BP 152/76 05/17/22 07:46 Pulse Ox 93 L 05/17/22 07:46 FiO2 Intake & Output 05/16/22 05/17/22 05/17/22 18:59 06:59 18:59 Intake Total 194 Output Total 1800 1650 Balance -1800 290 Weight 92.5 kg 92.5 kg Intake: Intake, IV Titration 1940 Amount Fat Emulsion 20% 250 ml @ 160 20.833 mls/hr IV MoTh@ 1800 [facility] Rx#:[id number] Piperacillin-Tazobactam 3 100 .375 gm In Sodium Chloride 0.9% 100 ml @ 25 mls/hr IVPB Q8H [facility] Rx#: [id number] Potassium Phosphate 15 1080 mmol Sodium Acetate 30 meq Magnesium Sulfate gm 1 gm Calcium Gluconate 1 gm In Amino Acid 5%-D15w 1,000 ml @ 90 mls/hr IV . BY DURATION NOE Rx#: [id number] Sodium Chloride 0.9% 1, 600 000 ml @ 50 mls/hr IV . Q20H [facility] Rx#:[id number] Oral 0 Output: Gastric Drainage 100 Urine 1800 1550 Other: Voiding Method External Catheter # Voids 4 # Bowel Movements 1 - Labs CBC & Chem 7: 05/17/22 05:57 05/17/22 05:57 Labs: Abnormal Lab Results - Last 24 Hours (Table) 05/17/22 05/17/22 Range/Units 05:57 05:57 WBC 20.41 H (4.50-10.00) X 10*3/uL RBC 2.76 L (4.40-5.60) X 10*6/uL Hgb 9.1 L (13.0-17.0) g/dL Hct 27.5 L (39.6-50.0) % MCV 99.6 H (80.0-97.0) fL MCH 33.0 H (27.0-32.0) pg RDW 15.1 H (11.5-14.5) % Immature Gran # 0.24 H (0.00-0.04) X 10*3/uL Neutrophils # 17.68 H (1.80-7.70) X 10*3/uL Lymphocytes # 0.75 L (0.90-5.00) X 10*3/uL Monocytes # 1.22 H (0.20-1.00) X 10*3/uL Eosinophils # 0.49 H (0.04-0.35) X 10*3/uL Chloride 111 H (96-109) mmol/L Anion Gap 6.00 L (10.00-18.00) mmol/L BUN/Creatinine Ratio 33.13 H (12.00-20.00) Ratio Glucose 120 H (70-110) mg/dL Calcium 8.1 L (8.7-10.3) mg/dL AST 203 H (14-35) U/L ALT 369 H (10-49) U/L Alkaline Phosphatase 289 H (41-126) U/L C-Reactive Protein 12.20 H (0.00-0.80) mg/dL Total Protein 4.0 L (6.2-8.2) g/dL Albumin 1.8 L (3.8-4.9) g/dL Albumin/Globulin Ratio 0.82 L (1.60-3.17) g/dL Microbiology - Last 24 Hours (Table) 05/13/22 04:23 Blood Culture - Preliminary Blood No Growth after 96 hours
[2022-05-17] MEDS: THIAMINE 100 MG/ML 2 ML VIAL IVP SCH (13:53)
--- NOTE | 2022-05-17 14:11 | P.PN ---
Subjective Progress Note Date: 05/17/22 Principal diagnosis: Elevated LFTs This is a pleasant 76-year-old male who initially came to the emergency department for evaluation of weakness difficulty eating on 04/24/2022. Apparently patient had a recent hospital admission for urinary tract infection was discharged to rehab and continued to have increased weakness and was brought back for further evaluation. 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 Apparently patient had been complaining of decreased appetite and difficulty with swallowing. He reportedly had approximately 20 pound weight loss in last menstruation. Patient had a CT of the abdomen and pelvis that reported no evidence of free air. Renal cortical cysts. No renal solid mass or obst ruction. Arthrosclerotic vascular disease. Bilateral basilar pulmonary infiltrate and atelectasis. Cholelithiasis. Patient was seen and evaluated by speech therapy who reported that oral and pharyngeal phases of swallowing appear to be normal. With timing of swallow initiation with no signs or symptoms of aspiration/penetration exhibited with trials. Patient had reported sensation of solid stevan crackers sticking however was able to clear with liquid wash. They have recommended patient be on a dysphagia level III chopped diet and thin liquids. Patient had a PEG tube placed by Dr. Dean on 04/30/22, since then he has had some abdominal distention and the PEG tube feedings have been placed on hold. PEG tube has been on independent drainage with bile. CT of the abdomen and pelvis has been ordered. Patient has also infected pressure ulcers and is currently on IV antibiotics as well as had some aspiration pneumonia noted when he first was admitted and was started on anabiotic's at that time as well. Patient had been on Augmentin and Cipro prior to admission. Augmentin was d iscontinued on 05/03/2022, Cipro was discontinued on 04/24/2022. Patient was then started on vancomycin for MRSA which was discontinued on 05/13/2022. Patient is now on Zosyn and doxycycline per recommendations from infectious disease. Patient was noted to have mild elevation in his LFTs after admission with continued increase. Gastroenterology was consulted for elevated LFTs. Patient denies any history of previous liver disease, denies any history of alcohol abuse in the past or currently. No history of fatty liver, or hepatitis. Patient also had been on IV acetaminophen during this ho spitalization which has been discontinued as well. He denies any other new medications prior to coming into the emergency department. This patient initially had a CT of the abdomen and pelvis on 04/27/2022 with contrast that showed no evidence of free air. Renal cortical cyst. No renal solid mass or obstruction. Arthrosclerotic vascular disease. Bilateral basilar pulmonary infiltrates and atelectasis. Cholelithiasis. At that time said liver spleen pancreas appear intact. Bile ducts not dilated. Gallbladder intact. Small calcified gallstones. Admitting labs included a total bilirubin of 0.9 AST 26 ALT 44 alkaline phosphatase 110. 05/15/2022. Patient was seen and examined today as a follow-up. He is lying in bed. He states that he has some nausea, denies any vomiting or abdominal pain. Patient still nothing by mouth with TPN running. 2 f He remains on TPN.eedings continue to remain on hold and patient is being followed closely by general surgery. Again patient's vancomycin has been discontinued he is now on doxycycline and Zosyn. Amiodarone has been resumed. LFTs have stabilized and are actually slightly declining. Again likely all related to medication induced acute hepatitis possible etiology includes Bactrim and Augmentin which he was on prior to hospitalization as well as vancomycin. Have to also consider amiodarone as a good possibility and may need to consider alternative medication. 05/16/2022. Patient seen and examined as a follow-up. LFTs continue to trend down. No acute changes through the night.he remains on TPN. 05/17/2022. Patient seen and examined today as follow-up. No new complaints. LFTs continue to trend down. Patient remains on TPN for nutritional support. Monitor feeding still remain on hold. Amiodarone has been discontinued. Patient remains on fluconazole and Zosyn. Objective - Vital Signs Vital signs: Vital Signs Temp 97.9 F 05/17/22 02:16 Pulse 79 05/17/22 02:16 Resp 19 05/17/22 02:16 BP 161/80 05/17/22 02:16 Pulse Ox 93 L 05/17/22 02:16 FiO2 Intake & Output 05/16/22 05/17/22 05/17/22 18:59 06:59 18:59 Intake Total 1940 Output Total 1800 1650 Balance -1800 290 Weight 92.5 kg Intake: Intake, IV Titration 1939 Amount Fat Emulsion 20% 250 ml @ 160 20.833 mls/hr IV MoTh@ 1800 [facility] Rx#:[id number] Piperacillin-Tazobactam 3 100 .375 gm In Sodium Chloride 0.9% 100 ml @ 25 mls/hr IVPB Q8H NOE Rx#: [id number] Potassium Phosphate 15 1080 mmol Sodium Acetate 30 meq Magnesium Sulfate gm 1 gm Calcium Gluconate 1 gm In Amino Acid 5%-D15w 1,000 ml @ 90 mls/hr IV . BY DURATION NOE Rx#: [id number] Sodium Chloride 0.9% 1, 600 000 ml @ 50 mls/hr IV . Q20H NOE Rx#:[id number] Oral 0 Output: Gastric Drainage 100 Urine 1800 1550 Other: Voiding Method External Catheter # Voids 4 # Bowel Movements 1 - Exam General appearance: The patient is alert, oriented, appears in no acute distress. HET: Head is normocephalic and atraumatic. Conjunctiva pink. Sclera anicteric. Neck: Supple without lymphadenopathy. Abdomen: Soft, nontender, nondistended with PEG tube in place. No guarding or rigidity. Extremities: Normal skin color and turgor. No pedal edema Skin: No rashes, no jaundice Neurological: Alert and oriented. Dysarthric. - Labs CBC & Chem 7: 05/17/22 05:57 05/17/22 05:57 Labs: Abnormal Lab Results - Last 24 Hours (Table) 05/16/22 Range/Units 05:49 Chloride 113 H (96-109) mmol/L Anion Gap 6.40 L (10.00-18.00) mmol/L BUN 29.1 H (9.0-27.0) mg/dL BUN/Creatinine Ratio 36.38 H (12.00-20.00) Ratio Glucose 131 H (70-110) mg/dL Calcium 8.3 L (8.7-10.3) mg/dL AST 244 H (14-35) U/L ALT 430 H (10-49) U/L Alkaline Phosphatase 292 H (41-126) U/L Total Protein 4.0 L (6.2-8.2) g/dL Albumin 1.8 L (3.8-4.9) g/dL Albumin/Globulin Ratio 0.82 L (1.60-3.17) g/dL Microbiology - Last 24 Hours (Table) 05/13/22 04:23 Blood Culture - Preliminary Blood No Growth after 96 hours Assessment and Plan (1) Acute hepatitis Narrative/Plan: 76-year-old male who has been here mid April for dysphagia also found to be a possible CVA, aspiration pneumonia as well as MRSA positive for infected pressure ulcers was been on multiple antibiotics has had elevated LFTs that has continued to increase. Likely medication induced hepatitis related to antibiotics as well as acetaminophen in a patient who denies any previous history of liver disease. Denies any previous history of alcoholism or fatty liver disease. Will order acute hepatitis panel, awaiting repeat CT of the abdomen may consider ultrasound of liver. Initial CT of the abdomen did show cholelithiasis without any CBD dilation. Patient denies any abdominal pain. LFTs are stabilized and actually trending down. Patient had been on Bactrim prior to hospitalization as well as Augmentin during the early part of this hospitalization. Patient was on vancomycin for MRSA infection which has been discontinued and patient is now on Zosyn and doxycycline. Acute hepatitis again likely related to medication antibiotics need to be considered as well as amiodarone which a common side effect is elevated AST and ALT. Consider alternative medications. Current Visit: Yes Status: Acute Code(s): B17.9 - ACUTE VIRAL HEPATITIS, UNSPECIFIED SNOMED Code(s): 26852349 (2) Dysphagia Narrative/Plan: 76-year-old male with a history of CVA with a acute/subacute stroke who is complaining of 20 pound weight loss and difficulty with swallowing. Patient has had increased weakness came into the emergency department for further evaluation. States that he has had difficulty with swallowing for approximately 4 weeks duration. Denies any abdominal pain, nausea or vomiting. Gastroenterology as well as general surgery was consulted for evaluation including EGD and possible PEG tube placement. [facility] tube [facility] tomorrow 04/30/[address] Dean. May also need to consider modified barium swallow study. GI will be on standby if further needed. Patient is status post EGD and PEG tube placement. EGD with no significant findings or strictures noted. Continue with recommendations from general surgery on tube feedings and speech therapy. Current Visit: Yes Status: Acute Code(s): R13.10 - DYSPHAGIA, UNSPECIFIED SNOMED Code(s): 91663668 (3) Weakness Current Visit: Yes Status: Acute Code(s): R53.1 - WEAKNESS SNOMED Code(s): 68159038 (4) Atrial fibrillation Current Visit: No Status: Acute Code(s): I48.91 - UNSPECIFIED ATRIAL FIBRILL ATION SNOMED Code(s): 76553994 (5) CVA (cerebral infarction) Current Visit: No Status: Acute Code(s): I63.9 - CEREBRAL INFARCTION, UNSPECIFIED SNOMED Code(s): 012340565 (6) MRSA (methicillin resistant staph aureus) culture positive Current Visit: Yes Status: Acute Code(s): Z22.322 - CARRIER OR SUSPECTED CARRIER OF METHICILLIN RESIS STAPH SNOMED Code(s): 897936225 Plan: 1. Continue symptomatic and supportive care 2. Avoid hepatotoxic medication 3. No further workup indicated, LFTs trending down, again likely medication induced acute hepatitis Thank you for this consultation, we will sign off at this time. Dr. Sarah Post I agree with the dictator's note, documented as a scribe by Jami Patel.
--- NOTE | 2022-05-17 14:51 | P.PN ---
Subjective Progress Note Date: 05/17/22 Dictation progress note Date of service 05/17/[address] Ingiuez Patient seen today [id number] with the patient and his and also present in the follow-up visit with Dr. Parham the surgeon Discussed the risks and management with the with the awareness of the the risks. Saw far no snf accepting the patient with the TPN and Intralipid infusion through the PIC line Today after the exam patient found to have positive bowel movement and he has also bowel sound, we discussed that with Dr. Parham and despite of probable risk we are going to start him on a very small dose of enteral feeding 10 mL/h and if he tolerate the feeding will be gradually in a slow pace increasing the feeding and we hope at this trial the bowel and this, accepting that trial without events. The risks of aspiration still present and the accepting the risk. Meanwhile with the discussion with the she is requesting consultation with hospice house, and we will be consulting the visiting nurse hospice per patient request Also patient placed on no CODE STATUS. His discussion. On day physical exam: Patient is conscious alert awake still have the coughing with the whispering voice Vital sign temperature 99.3 exhilarating pulse rate 75 beats per minutes regular sinus with a history of atrial fibrillation respiratory rate 18/m Blood pressure 152/76 with a mean arterial pressure 101. Oxygen saturation 93% on 4 L and he was receiving inhalation therapy. Laboratories: WBC 20.41, hemoglobin 9.1/hematocrit 27.5 platelet 354. Sodium 143, potassium 3.5, chloride 111, carbon dioxide 26. BUN 26.5, creatinine 0.8, EGFR for non- 86.8, total protein 4, BUN 1.8. Head was normocephalic and atraumatic pupil was equal reactive still has dysphagia and impaired voice with dysphonia and cough Natural teeth. Neck supple no JVD no thyromegaly no lymphadenopathy trachea midline Chest scattered decrease air entry with the patchy atelectasis and aspiration pneumonia. Heart: Regular sinus rhythm with a history of atrial fibrillation Abdomen: PEG tube in place, positive bowel sounds, positive bowel movement no tenderness on the 4 quadrants Extremities: The swelling of the hand on the left side and the arm has been gradually improving, swelling and edema of the right arm is improving A shunt had PIC line in the left arm with a double lumen for the antibiotic and the IV TPN and Intralipid. Right heel has been improving and healing which was found to be MRSA with debridement and treated for 10 days vancomycin per infectious disease Dr. Lamb. Neurologically: On admission bilateral acute hemispheric CVA considered embolic with the atrial fibrillation with associated with right hemiparesis. Also 1.6 cm left frontoparietal enhancement which found to be present in the bone scan with the review of the brain scan with the old one 6 years ago was also present No evidence of metastasis, I don't see any evidence of multiple myeloma, patient has severe protein calorie deficiency. Assessment: And plan #1 only planning for monitoring the patient with the consistency is of PEG tube feeding #2 continue the TPN and Intralipid #3 marketed improvement of the liver function test with the AST 203, a LT 369 and alk phos 289, with CRP 12.2. #4 continue the antibiotic with aspiration pneumonia #5 as mentioned above severe protein calorie deficiency. #6 admission with acute CVA bilateral hemispheric with the right hemiparesis #7 dysphagia and impaired voice and weight loss on admission 20 pound as mentioned on the 2 weeks and the snf [facility]. Patient currently no code, hospice consulted for the hospice house, we'll monitor the feeding through the PEG tube as well. Objective - Vital Signs Vital signs: Vital Signs Temp 99.3 F 05/17/22 07:46 Pulse 88 05/17/22 12:29 Resp 18 05/17/22 07:46 BP 152/76 05/17/22 07:46 Pulse Ox 93 L 05/17/22 07:46 FiO2 Intake & Output 05/16/22 05/17/22 05/17/22 18:59 06:59 18:59 Intake Total 2972 Output Total 1800 1650 Balance -1800 1322 Weight 92.5 kg 92.5 kg Intake: Intake, IV Titration 2972 Amount Fat Emulsion 20% 250 ml @ 160 20.833 mls/hr IV MoTh@ 1800 [facility] Rx#:[id number] Piperacillin-Tazobactam 3 100 .375 gm In Sodium Chloride 0.9% 100 ml @ 25 mls/hr IVPB Q8H [facility] Rx#: [id number] Potassium Phosphate 15 2112 mmol Sodium Acetate 30 meq Magnesium Sulfate gm 1 gm Calcium Gluconate 1 gm In Amino Acid 5%-D15w 1,000 ml @ 90 mls/hr IV . BY DURATION [facility] Rx#: [id number] Sodium Chloride 0.9% 1, 600 000 ml @ 50 mls/hr IV . Q20H [facility] Rx#:[id number] Oral 0 Output: Gastric Drainage 100 Urine 1800 1550 Other: Voiding Method External Catheter # Voids 4 # Bowel Movements 1 - Labs CBC & Chem 7: 05/17/22 05:57 05/17/22 05:57 Labs: Abnormal Lab Results - Last 24 Hours (Table) 05/17/22 05/17/22 Range/Units 05:57 05:57 WBC 20.41 H (4.50-10.00) X 10*3/uL RBC 2.76 L (4.40-5.60) X 10*6/uL Hgb 9.1 L (13.0-17.0) g/dL Hct 27.5 L (39.6-50.0) % MCV 99.6 H (80.0-97.0) fL MCH 33.0 H (27.0-32.0) pg RDW 15.1 H (11.5-14.5) % Immature Gran # 0.24 H (0.00-0.04) X 10*3/uL Neutrophils # 17.68 H (1.80-7.70) X 10*3/uL Lymphocytes # 0.75 L (0.90-5.00) X 10*3/uL Monocytes # 1.22 H (0.20-1.00) X 10*3/uL Eosinophils # 0.49 H (0.04-0.35) X 10*3/uL Chloride 111 H (96-109) mmol/L Anion Gap 6.00 L (10.00-18.00) mmol/L BUN/Creatinine Ratio 33.13 H (12.00-20.00) Ratio Glucose 120 H (70-110) mg/dL Calcium 8.1 L (8.7-10.3) mg/dL AST 203 H (14-35) U/L ALT 369 H (10-49) U/L Alkaline Phosphatase 289 H (41-126) U/L C-Reactive Protein 12.20 H (0.00-0.80) mg/dL Total Protein 4.0 L (6.2-8.2) g/dL Albumin 1.8 L (3.8-4.9) g/dL Albumin/Globulin Ratio 0.82 L (1.60-3.17) g/dL Microbiology - Last 24 Hours (Table) 05/13/22 04:23 Blood Culture - Preliminary Blood No Growth after 96 hours
[2022-05-17] MEDS: CYANOCOBALAMIN 500 MCG TAB PO SCH (17:54)
[2022-05-17] MEDS: RIVAROXABAN 20 MG TAB PO SCH (17:54)
[2022-05-17] MEDS: CHOLECALCIFEROL 25 MCG (1000 IU) TABLET PO SCH (17:54)
[2022-05-17] MEDS: MIRTAZAPINE 15 MG TAB PO SCH (20:21)
[2022-05-17] MEDS: MELATONIN 3 MG TABLET PO SCH (20:21)
[2022-05-17] MEDS: COLLAGENASE 250 UNIT/GM OINTMENT 30 GM TUBE TOPICAL SCH (20:21)
[2022-05-18] MEDS: SODIUM CHLORIDE 0.9% 1,000 ML IV SCH ×2 (04:19→22:31)
[2022-05-18] MEDS: guaiFENesin-DM 100-10MG/5ML 10 ML CUP PO PRN (04:26)
[2022-05-18] MEDS: PIPERACILLIN-TAZOBACTAM 3.375 GM in SODIUM CHLORIDE 0.9% 100 ML IVPB SCH ×3 (04:26→22:28)
[2022-05-18] MEDS: SUCRALFATE 1 GM TAB PO SCH ×3 (06:23→17:33)
[2022-05-18] MEDS: BUDESONIDE 1 MG/2 ML NEBU INHALATION SCH ×2 (08:49→19:51)
[2022-05-18] MEDS: FORMOTEROL FUMARATE 20 MCG/2 ML NEBU INHALATION SCH ×2 (08:49→19:51)
[2022-05-18] MEDS: IPRATROPIUM-ALBUTEROL 3 ML NEB INHALATION SCH ×4 (08:49→19:51)
--- NOTE | 2022-05-18 10:10 | P.PN ---
Progress Note - Text Progress Note Date: 05/18/22 Patient sleeping comfortably. No abdominal pain. No nausea or vomiting. Tolerating tube feeds at 10 mL per hour. Abdominal exam benign. Keep Rate at 10 mL for now.
--- NOTE | 2022-05-18 11:19 | P.PN ---
Subjective Progress Note Date: 05/18/22 Principal diagnosis: Right heel infected pressure ulcer Patient is a 76 year old male with multiple comorbidities [facility] resident noticed to have a worsening pressure ulcer to the right heel status post debridement culture positive for MRSA. On today's evaluation that is 05/18/2022 the patient remains to be afebrile, the patient denies any chest pain, the patient continued to complain of cough but no sputum production, the patient denies abdominal pain no diarrhea has been reported by the nursing staff patient had been restarted on his tube feeds Objective - Vital Signs Vital signs: Vital Signs Temp 98.5 F 05/18/22 08:00 Pulse 84 05/18/22 09:11 Resp 20 05/18/22 08:00 BP 143/70 05/18/22 08:00 Pulse Ox 95 05/18/22 08:49 FiO2 Intake & Output 05/17/22 05/18/22 05/18/22 18:59 06:59 18:59 Intake Total 1800 Output Total 2350 1225 Balance -2350 575 Weight 92.5 kg 94 kg Intake: Intake, IV Titration 1680 Amount Mvi, Adult No.4 with Vit 1080 K 10 ml Trace (Conc-1Ml/ Dose) 1 ml Potassium Phosphate 15 mmol Sodium Acetate 30 meq Magnesium Sulfate gm 1 gm Folic Acid 1 mg Thiamine 100 mg Calcium Gluconate 1 gm In Amino Acid 5%-D15w 1, 000 ml @ 90 mls/hr IV .BY DURATION [facility] Rx#: [id number] Sodium Chloride 0.9% 1, 600 000 ml @ 50 mls/hr IV . Q20H [facility] Rx#:[id number] Tube Feeding 120 Output: Urine 2350 1225 Other: Voiding Method External Catheter # Voids 2 # Bowel Movements 3 - Exam GENERAL DESCRIPTION: An elderly male lying in bed in no distress RESPIRATORY SYSTEM: Unlabored breathing , decreased breath sounds at bases HEART: S1 S2 regular rate and rhythm , ABDOMEN: Soft , no tenderness EXTREMITIES: Right heel as well as right foot plantar wound base with slough tissue no significant surrounding redness or foul-smelling drainage - Labs CBC & Chem 7: 05/17/22 05:57 05/17/22 05:57 Labs: Microbiology - Last 24 Hours (Table) 05/13/22 04:23 Blood Culture - Preliminary Blood No Growth after 120 hours Assessment and Plan (1) Open wound of right heel Current Visit: Yes Status: Acute Code(s): S91.301A - UNSPECIFIED OPEN WOUND, RIGHT FOOT, INITIAL ENCOUNTER SNOMED Code(s): 462661445 (2) MRSA (methicillin resistant staph aureus) culture positive Current Visit: Yes Status: Acute Code(s): Z22.322 - CARRIER OR SUSPECTED CARRIER OF METHICILLIN RESIS STAPH SNOMED Code(s): 052507906 Plan: 1patient with right heel infected pressure ulcer in this patient with status post surgical debridement did not mention any extension down to the bone however will be discussed further with the vascular surgery culture now showing presumptive MRSA patient did have a low-grade fever and mild elevated white count with a left shift. 2 Patient has received adequate vancomycin for his right heel infection which was mostly superficial now with concern for possible elevated liver enzymes clinically doubt doxycycline , doxycycline is currently on hold 3patient with chest x-ray did shows new airspace opacity predominantly in the upper lungs left hilar region concerning for possible aspiration pneumonia, patient to continue with the Zosyn 4-patient did have persistent elevated white count in this patient has been exposed to antibiotics and is currently on TPN high risk for fungal infection 5- the patient was started on Diflucan yesterday CBC from this morning is currently pending and continue supportive care Time with Patient: Less than 30
[2022-05-18] MEDS: TROSPIUM CHLORIDE 20 MG TABLET PO SCH (11:25)
[2022-05-18] MEDS: TAMSULOSIN 0.4 MG CAP.ER.24H PO SCH (11:25)
[2022-05-18] MEDS: amLODIPine 10 MG TAB PO SCH (11:26)
[2022-05-18] MEDS: FLUCONAZOLE IN NACL,ISO-OSM 200 MG in SALINE 1 100ML.BAG IVPB SCH (11:26)
[2022-05-18] MEDS: METOPROLOL SUCCINATE (ER) 25 MG TAB.ER.24H PO SCH (11:27)
[2022-05-18] MEDS: ASPIRIN 81 MG PO SCH (11:28)
[2022-05-18 11:34] LABS: Glucose,Whole Blood 129 mg/dL (70-110)
[2022-05-18] MEDS ORDERED: DEXTROSE 50% SYRINGE 50 ML IVP PRN ×2 (11:56)
[2022-05-18] MEDS: PANTOPRAZOLE 40 MG/10 ML VIAL IVP SCH (11:59)
[2022-05-18] MEDS: METOCLOPRAMIDE 5 MG/ML 2 ML VIAL IVP SCH ×2 (12:00→17:49)
[2022-05-18] MEDS: FUROSEMIDE 10 MG/ML 4 ML VIAL IV SCH (12:00)
[2022-05-18 12:11] LABS: African American GFR (CKD) 101.3 (60.0-200.0); Anion Gap 5.6 mmol/L (10.00-18.00); BUN/Creat Ratio 33.55 Ratio (12.00-20.00); Blood Urea Nitrogen 26.4 mg/dL (9.0-27.0); Calcium 8.1 mg/dL (8.7-10.3); Carbon Dioxide 25.8 mmol/L (20.0-27.5); Magnesium 2.1 mg/dL (1.5-2.4); Non-African American GFR(CKD) 87.4 (60.0-200.0); Phosphorus 3.1 mg/dL (2.4-5.1); Potassium 3.5 mmol/L (3.5-5.5)
[2022-05-18] MEDS: INSULIN ASPART (NovoLOG) 100 UNIT/ML VIAL SQ SCH ×2 (12:22→17:32)
--- NOTE | 2022-05-18 12:49 | P.PN ---
Subjective Progress Note Date: 05/18/22 Progress note dictation Date of service 05/18/[address] Iniguez, Patient seen in [id number] today and discussed with his at bedside We'll be obtaining oropharyngeal culture for fungal however patient started yesterday on Diflucan by Dr. Crain infectious disease with the possibility of a ntibiotic associated oropharyngeal yeast. Vital signs stable temperature 98.5 F oral heart rate 73 per minute respiratory rate 20/m walk still present, blood pressure 143/70 with a mean 94 oxygen sat uration 96%. Physical exam patient awake alert still coughing oropharynx: His tongue with the possibility obese he has natural teeth. Head was normocephalic and atraumatic and pupil was equal reactive Neck was supple no JVD no thyromegaly no lymphadenopathy Chest lung is better improved today with good breath sounds bilaterally will plan for Friday chest x-ray. Heart regular sinus rhythm, history of atrial fibrillation on anticoagulant ,Xarelto Abdomen: PEG tube in place, good bowel sounds this morning the did not notice by nursing staff any BM, PEG tube in place so far functioning with stent cc an hour no complication wait for tomorrow before increase the feeding and also to assess if there is any bowel movement. Extremities he had anasarca and edema secondary to hypoproteinemia and hypo albuminemia with the severe protein calorie deficiency. 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 Assessment: And plan #1 the starting feeding tube through PEG tube has been so far was no problem we'll continue #2 severe protein calorie deficiency and patient on TPN colored his hyperglycemia with every 6 hours insulin to scale. #3 his cough still present. #4 acute hepatitis of the liver will be continuing monitoring with the laboratories on Friday. #5 aspiration pneumonia appeared to be improved we'll be monitoring with chest x-ray on Friday. #6 hypertension with hypertensive heart disease and atrial fibrillation currently stable normal sinus rhythm. #7 history of ulceration of the right heel was positive to medicine treated for adequate time with vancomycin. #8 right arm elbow edema with the sides of IV found that he had superficial venous thrombosis with significant improvement but still in the elbow itself some pitting edema. #Left upper extremities with a history patient had PICC line for the IV antibiotic and it was pulled out and he had to go to have a repeat insertion of another PICC line with the dual catheter with the edema has been this also significant improvement still residual presence. #10 urinary incontinence with the external drainage. #11 underlying hypoxemia with aspiration pneumonia associated with the vomiting currently patient on 6 L nasal cannula with the pulse ox 96%. Patient covered with insulin and continue to monitor and have grade feeding tolerated. Objective - Vital Signs Vital signs: Vital Signs Temp 98.5 F 05/18/22 08:00 Pulse 84 05/18/22 09:11 Resp 20 05/18/22 08:00 BP 143/70 05/18/22 08:00 Pulse Ox 95 05/18/22 08:49 FiO2 Intake & Output 05/17/22 05/18/22 05/18/22 18:59 06:59 18:59 Intake Total 1800 Output Total 2350 1225 Balance -2350 575 Weight 92.5 kg 94 kg Intake: Intake, IV Titration 1680 Amount Mvi, Adult No.4 with Vit 1080 K 10 ml Trace (Conc-1Ml/ Dose) 1 ml Potassium Phosphate 15 mmol Sodium Acetate 30 meq Magnesium Sulfate gm 1 gm Folic Acid 1 mg Thiamine 100 mg Calcium Gluconate 1 gm In Amino Acid 5%-D15w 1, 000 ml @ 90 mls/hr IV .BY DURATION [facility] Rx#: [id number] Sodium Chloride 0.9% 1, 600 000 ml @ 50 mls/hr IV . Q20H [facility] Rx#:[id number] Tube Feeding 120 Output: Urine 2350 1225 Other: Voiding Method External Catheter # Voids 2 # Bowel Movements 3 - Labs CBC & Chem 7: 05/17/22 05:57 05/18/22 06:42 Labs: Abnormal Lab Results - Last 24 Hours (Table) 05/18/22 05/18/22 Range/Units 06:42 11:32 Anion Gap 5.60 L (10.00-18.00) mmol/L BUN/Creatinine Ratio 33.55 H (12.00-20.00) Ratio Glucose 131 H (70-110) mg/dL POC Glucose (mg/dL) 129 H (70-110) mg/dL Calcium 8.1 L (8.7-10.3) mg/dL Microbiology - Last 24 Hours (Table) 05/13/22 04:23 Blood Culture - Preliminary Blood No Growth after 120 hours
[2022-05-18] MEDS: THIAMINE 100 MG/ML 2 ML VIAL IVP SCH (14:19)
[2022-05-18] MEDS: POTASSIUM CHLORIDE 20 MEQ in WATER FOR INJECTION 1 100ML.BAG IVPB SCH ×2 (15:37→17:31)
[2022-05-18 17:03] LABS: Glucose,Whole Blood 132 mg/dL (70-110)
[2022-05-18] MEDS: CHOLECALCIFEROL 25 MCG (1000 IU) TABLET PO SCH (17:30)
[2022-05-18] MEDS: RIVAROXABAN 20 MG TAB PO SCH (17:30)
[2022-05-18] MEDS: CYANOCOBALAMIN 500 MCG TAB PO SCH (17:30)
[2022-05-18] MEDS: COLLAGENASE 250 UNIT/GM OINTMENT 30 GM TUBE TOPICAL SCH (22:11)
[2022-05-18] MEDS: MIRTAZAPINE 15 MG TAB PO SCH (22:29)
[2022-05-18] MEDS: MELATONIN 3 MG TABLET PO SCH (22:30)
[2022-05-18 23:58] LABS: Glucose,Whole Blood 135 mg/dL (70-110)
[2022-05-19] MEDS: INSULIN ASPART (NovoLOG) 100 UNIT/ML VIAL SQ SCH ×4 (00:17→17:18)
[2022-05-19] MEDS: SUCRALFATE 1 GM TAB PO SCH ×4 (00:20→17:17)
[2022-05-19] MEDS: METOCLOPRAMIDE 5 MG/ML 2 ML VIAL IVP SCH ×3 (00:20→17:15)
[2022-05-19 05:43] LABS: Glucose,Whole Blood 115 mg/dL (70-110)
[2022-05-19] MEDS: PIPERACILLIN-TAZOBACTAM 3.375 GM in SODIUM CHLORIDE 0.9% 100 ML IVPB SCH ×3 (06:25→23:02)
[2022-05-19] MEDS: IPRATROPIUM-ALBUTEROL 3 ML NEB INHALATION SCH ×4 (07:16→20:42)
[2022-05-19] MEDS: FORMOTEROL FUMARATE 20 MCG/2 ML NEBU INHALATION SCH ×2 (07:16→20:42)
[2022-05-19] MEDS: BUDESONIDE 1 MG/2 ML NEBU INHALATION SCH ×2 (07:16→20:42)
[2022-05-19] MEDS: FUROSEMIDE 10 MG/ML 4 ML VIAL IV SCH (08:45)
[2022-05-19] MEDS: PANTOPRAZOLE 40 MG/10 ML VIAL IVP SCH (08:45)
[2022-05-19] MEDS: METOPROLOL SUCCINATE (ER) 25 MG TAB.ER.24H PO SCH (10:06)
[2022-05-19] MEDS: TAMSULOSIN 0.4 MG CAP.ER.24H PO SCH (10:06)
[2022-05-19] MEDS: amLODIPine 10 MG TAB PO SCH (10:07)
[2022-05-19] MEDS: FLUCONAZOLE IN NACL,ISO-OSM 200 MG in SALINE 1 100ML.BAG IVPB SCH (10:07)
[2022-05-19] MEDS: TROSPIUM CHLORIDE 20 MG TABLET PO SCH (10:07)
--- NOTE | 2022-05-19 10:08 | P.PN ---
Subjective Progress Note Date: 05/19/22 Principal diagnosis: Malnutrition Patient still felt tired. Denies abdominal pain. No nausea or vomiting. He was tolerating his tube feeds overnight at 10 mL per hour. Residuals have been small. He did have a bowel movement. Objective - Vital Signs Vital signs: Vital Signs Temp 98.7 F 05/19/22 08:00 Pulse 74 05/19/22 08:00 Resp 17 05/19/22 08:00 BP 154/71 05/19/22 08:00 Pulse Ox 95 05/19/22 08:00 FiO2 Intake & Output 05/18/22 05/19/22 05/19/22 18:59 06:59 18:59 Intake Total 1033.2 Output Total 1999 1600 Balance -966.8 -1600 Weight 94 kg Intake: Intake, IV Titration 1033.2 Amount Potassium Phosphate 15 1033.2 mmol Sodium Acetate 30 meq Magnesium Sulfate gm 1 gm Folic Acid 1 mg Thiamine 100 mg Calcium Gluconate 1 gm In Amino Acid 5%-D15w 1,000 ml @ 90 mls/hr IV .BY DURATION [facility] Rx#:[id number] Output: Urine 1999 1599 Other: Voiding Method External Catheter # Bowel Movements 1 - Exam Abdomen: Soft, nondistended, nontender, PEG tube in place - Labs CBC & Chem 7: 05/17/22 05:57 05/18/22 06:42 Labs: Abnormal Lab Results - Last 24 Hours (Table) 05/18/22 05/18/22 05/18/22 Range/Units 06:42 11:32 17:00 Anion Gap 5.60 L (10.00-18.00) mmol/L BUN/Creatinine Ratio 33.55 H (12.00-20.00) Ratio Glucose 131 H (70-110) mg/dL POC Glucose (mg/dL) 129 H 132 H (70-110) mg/dL Calcium 8.1 L (8.7-10.3) mg/dL 05/18/22 05/19/22 Range/Units 23:56 05:41 Anion Gap (10.00-18.00) mmol/L BUN/Creatinine Ratio (12.00-20.00) Ratio Glucose (70-110) mg/dL POC Glucose (mg/dL) 135 H 115 H (70-110) mg/dL Calcium (8.7-10.3) mg/dL Microbiology - Last 24 Hours (Table) 05/13/22 04:23 Blood Culture - Final Blood No Growth after 144 hours 05/18/22 13:30 Fungal Culture - Preliminary Mouth 05/18/22 13:30 - Preliminary Mouth Assessment and Plan Plan: Patient doing better at this time. Will increase tube feeds to 20 mL per hour. Monitored residuals. Keep head elevated.
[2022-05-19 11:29] LABS: Glucose,Whole Blood 118 mg/dL (70-110)
[2022-05-19] MEDS: ASPIRIN 81 MG PO SCH (12:32)
[2022-05-19] MEDS: THIAMINE 100 MG/ML 2 ML VIAL IVP SCH (13:19)
[2022-05-19 13:42] LABS: African American GFR (CKD) 100.6 (60.0-200.0); Anion Gap 5.2 mmol/L (10.00-18.00); BUN/Creat Ratio 34.13 Ratio (12.00-20.00); Blood Urea Nitrogen 27.3 mg/dL (9.0-27.0); Carbon Dioxide 25.8 mmol/L (20.0-27.5); Non-African American GFR(CKD) 86.8 (60.0-200.0); Potassium 4.1 mmol/L (3.5-5.5)
[2022-05-19 13:43] LABS: Magnesium 2.3 mg/dL (1.5-2.4); Phosphorus 3.1 mg/dL (2.4-5.1)
--- NOTE | 2022-05-19 14:03 | P.PN ---
Subjective Progress Note Date: 05/19/22 Progress note dictation Date of service 05/19/[address] Iniguez Patient seen [id number] examined and evaluated discussed with his at bedside. Laboratory: Sodium 137, potassium 4.1, chloride 106, carbon dioxide 25.8, anion gap 5.2, BUN 27.3, creatinine 0.8, EGFR for non- 86.8, blood sugar monitoring stable POC 118 it, calcium 8.0, phosphorus 3.1, magnesium 2.3. Vital sign Blood pressure 154/71, mean blood pressure 98, oxygen saturation 95% on 5 L nasal cannula. Temperature 98.7 F oral, heart rate 76 regular sinus. Head was normocephalic and atraumatic pupil was equal reactive to inject diabetic was pale with the drop in the hemoglobin and anemia Oropharynx natural teeth still have cough persistent. Neck was supple no JVD no thyromegaly no lymphadenopathy trachea midline. Chest: Improved breath sounds bilaterally with the history of aspiration pneumonia and patchy infiltrate as well as anasarca from hypoproteinemia hypoalbuminemia and externalization of the fluid will obtain a chest x-ray tomorrow for follow-up lab and X ray Heart regular sinus rhythm vehicle monitor technician discontinued Abdomen: Soft positive bowel sounds tolerating the 10 mL enteral feeding tube th rough PEG tube and increased today to [address] Dean and patient tolerating without any nausea or vomiting. He had bowels movement yesterday Extremities: Still have some edema of the lower extremities and the arm associated with the anasarca due to low protein and albumin. Psychiatric: Stable Neurology: Stable no new event with the underlying history of CVA bilateral hemispheric as well as left frontal parietal enhancement 1.6 cm which has been there for the last 60 years by the bone scan and no evidence of metastasis no evidence of multiple myeloma and he had prostate cancer in the past treated with radiation therapy and his PSA on this admission was stable Assessment: Plan Patient progressively improving, no nausea no vomiting and no diarrhea has been noted, his enteral feeding through PEG tube has been adjusted to 20 mL an hour and hopefully patient continued to tolerate. TPN continued and the fourth her x-rays and lab to be done tomorrow for follow- up According to the patient progression awfully weak and discontinue the TPN and PICC line and depend on the PEG tube feeding was medication through the PEG tube and follow at the skilled nursing however it may take a few days from now and the clearance from the surgeon as well Objective - Vital Signs Vital signs: Vital Signs Temp 98.7 F 05/19/22 08:00 Pulse 76 05/19/22 11:19 Resp 17 05/19/22 08:00 BP 154/71 05/19/22 08:00 Pulse Ox 95 05/19/22 08:00 FiO2 Intake & Output 05/18/22 05/19/22 05/19/22 18:59 06:59 18:59 Intake Total 1033.2 1033.2 Output Total 1999 1600 750 Balance -966.8 -566.8 -750 Weight 94 kg Intake: Intake, IV Titration 1033.2 1033.2 Amount Potassium Phosphate 15 1033.2 1033.2 mmol Sodium Acetate 30 meq Magnesium Sulfate gm 1 gm Folic Acid 1 mg Thiamine 100 mg Calcium Gluconate 1 gm In Amino Acid 5%-D15w 1,000 ml @ 90 mls/hr IV .BY DURATION [facility] Rx#:[id number] Output: Urine 1999 1600 750 Other: Voiding Method External Catheter # Bowel Movements 1 - Labs CBC & Chem 7: 05/17/22 05:57 05/19/22 07:31 Labs: Abnormal Lab Results - Last 24 Hours (Table) 05/18/22 05/18/22 05/19/22 Range/Units 17:00 23:56 05:41 Anion Gap (10.00-18.00) mmol/L BUN (9.0-27.0) mg/dL BUN/Creatinine Ratio (12.00-20.00) Ratio Glucose (70-110) mg/dL POC Glucose (mg/dL) 132 H 135 H 115 H (70-110) mg/dL Calcium (8.7-10.3) mg/dL 05/19/22 05/19/22 Range/Units 07:31 11:27 Anion Gap 5.20 L (10.00-18.00) mmol/L BUN 27.3 H (9.0-27.0) mg/dL BUN/Creatinine Ratio 34.13 H (12.00-20.00) Ratio Glucose 119 H (70-110) mg/dL POC Glucose (mg/dL) 118 H (70-110) mg/dL Calcium 8.0 L (8.7-10.3) mg/dL Microbiology - Last 24 Hours (Table) 05/13/22 04:23 Blood Culture - Final Blood No Growth after 144 hours 05/18/22 13:30 Fungal Culture - Preliminary Mouth 05/18/22 13:30 - Preliminary Mouth
[2022-05-19 16:45] LABS: Glucose,Whole Blood 141 mg/dL (70-110)
[2022-05-19] MEDS: RIVAROXABAN 20 MG TAB PO SCH (17:16)
[2022-05-19] MEDS: CYANOCOBALAMIN 500 MCG TAB PO SCH (17:16)
[2022-05-19] MEDS: CHOLECALCIFEROL 25 MCG (1000 IU) TABLET PO SCH (17:16)
[2022-05-19] MEDS: SODIUM CHLORIDE 0.9% 1,000 ML IV SCH (17:17)
--- NOTE | 2022-05-19 21:27 | P.PN ---
Subjective Progress Note Date: 05/19/22 Principal diagnosis: Right heel infected pressure ulcer Patient is a 76 year old male with multiple comorbidities [facility] resident noticed to have a worsening pressure ulcer to the right heel status post debridement culture positive for MRSA. On today's evaluation that is 05/19/2022 the patient continues to be afebrile, the patient denies any chest pain, the patient denies any worsening cough or sputum production, the patient denies abdominal pain no diarrhea has been reported by the nursing staff patient had been restarted on his tube feeds which he has been tolerating so far Objective - Vital Signs Vital signs: Vital Signs Temp 98.7 F 05/19/22 14:00 Pulse 75 05/19/22 14:00 Resp 17 05/19/22 14:00 BP 141/79 05/19/22 14:00 Pulse Ox 98 05/19/22 14:00 FiO2 Intake & Output 05/18/22 05/19/22 05/19/22 18:59 06:59 18:59 Intake Total 1033.2 1033.2 Output Total 1999 1600 750 Balance -966.8 -566.8 -750 Weight 94 kg Intake: Intake, IV Titration 1033.2 1033.2 Amount Potassium Phosphate 15 1033.2 1033.2 mmol Sodium Acetate 30 meq Magnesium Sulfate gm 1 gm Folic Acid 1 mg Thiamine 100 mg Calcium Gluconate 1 gm In Amino Acid 5%-D15w 1,000 ml @ 90 mls/hr IV .BY DURATION [facility] Rx#:[id number] Output: Urine 1999 1600 750 Other: Voiding Method External Catheter # Bowel Movements 1 - Exam GENERAL DESCRIPTION: An elderly male lying in bed in no distress RESPIRATORY SYSTEM: Unlabored breathing , decreased breath sounds at bases HEART: S1 S2 regular rate and rhythm , ABDOMEN: Soft , no tenderness EXTREMITIES: Right heel as well as right foot plantar wound base with slough tissue no significant surrounding redness or foul-smelling drainage - Labs CBC & Chem 7: 05/17/22 05:57 05/19/22 07:31 Labs: Abnormal Lab Results - Last 24 Hours (Table) 05/18/22 05/18/22 05/19/22 Range/Units 17:00 23:56 05:41 Anion Gap (10.00-18.00) mmol/L BUN (9.0-27.0) mg/dL BUN/Creatinine Ratio (12.00-20.00) Ratio Glucose (70-110) mg/dL POC Glucose (mg/dL) 132 H 135 H 115 H (70-110) mg/dL Calcium (8.7-10.3) mg/dL 05/19/22 05/19/22 Range/Units 07:31 11:27 Anion Gap 5.20 L (10.00-18.00) mmol/L BUN 27.3 H (9.0-27.0) mg/dL BUN/Creatinine Ratio 34.13 H (12.00-20.00) Ratio Glucose 119 H (70-110) mg/dL POC Glucose (mg/dL) 118 H (70-110) mg/dL Calcium 8.0 L (8.7-10.3) mg/dL Microbiology - Last 24 Hours (Table) 05/13/22 04:23 Blood Culture - Final Blood No Growth after 144 hours 05/18/22 13:30 Fungal Culture - Preliminary Mouth 05/18/22 13:30 - Preliminary Mouth Assessment and Plan (1) Open wound of right heel Current Visit: Yes Status: Acute Code(s): S91.301A - UNSPECIFIED OPEN WOUND, RIGHT FOOT, INITIAL ENCOUNTER SNOMED Code(s): 969621514 (2) MRSA (methicillin resistant staph aureus) culture positive Current Visit: Yes Status: Acute Code(s): Z22.322 - CARRIER OR SUSPECTED CARRIER OF METHICILLIN RESIS STAPH SNOMED Code(s): 879071656 Plan: 1patient with right heel infected pressure ulcer in this patient with status post surgical debridement did not mention any extension down to the bone however will be discussed further with the vascular surgery culture now showing presumptive MRSA patient did have a low-grade fever and mild elevated white count with a left shift. 2 Patient has received adequate vancomycin for his right heel infection which was mostly superficial now with concern for possible elevated liver enzymes clinically doubt doxycycline , doxycycline is currently on hold 3patient with chest x-ray did shows new airspace opacity predominantly in the upper lungs left hilar region concerning for possible aspiration pneumonia, patient to continue with the Zosyn 4-patient did have persistent elevated white count in this patient has been exposed to antibiotics and is currently on TPN high risk for fungal infection 5- the patient to continue with Diflucan we will repeat his CBC and a CMP and monitor clinical course closely Time with Patient: Less than 30
[2022-05-19] MEDS: MELATONIN 3 MG TABLET PO SCH (23:02)
[2022-05-19] MEDS: MIRTAZAPINE 15 MG TAB PO SCH (23:02)
[2022-05-19] MEDS: COLLAGENASE 250 UNIT/GM OINTMENT 30 GM TUBE TOPICAL SCH (23:03)
[2022-05-20 00:36] LABS: Glucose,Whole Blood 113 mg/dL (70-110)
[2022-05-20 00:52] LABS: Glucose,Whole Blood 118 mg/dL (70-110)
[2022-05-20] MEDS: INSULIN ASPART (NovoLOG) 100 UNIT/ML VIAL SQ SCH ×4 (01:30→15:21)
[2022-05-20] MEDS: SUCRALFATE 1 GM TAB PO SCH ×4 (01:33→15:21)
[2022-05-20] MEDS: METOCLOPRAMIDE 5 MG/ML 2 ML VIAL IVP SCH ×3 (01:34→15:20)
[2022-05-20] MEDS: PIPERACILLIN-TAZOBACTAM 3.375 GM in SODIUM CHLORIDE 0.9% 100 ML IVPB SCH ×2 (05:20→11:11)
[2022-05-20 05:23] LABS: Glucose,Whole Blood 126 mg/dL (70-110)
[2022-05-20 07:45] VITALS: RESP 16; TEMP 98.5
[2022-05-20] MEDS: PANTOPRAZOLE 40 MG/10 ML VIAL IVP SCH (07:52)
[2022-05-20] MEDS: FUROSEMIDE 10 MG/ML 4 ML VIAL IV SCH (07:53)
[2022-05-20] MEDS: ASPIRIN 81 MG PO SCH ×2 (07:54→11:11)
[2022-05-20] MEDS: TAMSULOSIN 0.4 MG CAP.ER.24H PO SCH (07:54)
[2022-05-20] MEDS: amLODIPine 10 MG TAB PO SCH (07:54)
[2022-05-20] MEDS: METOPROLOL SUCCINATE (ER) 25 MG TAB.ER.24H PO SCH (07:54)
[2022-05-20] MEDS: TROSPIUM CHLORIDE 20 MG TABLET PO SCH (07:56)
[2022-05-20] MEDS: FLUCONAZOLE IN NACL,ISO-OSM 200 MG in SALINE 1 100ML.BAG IVPB SCH (07:57)
[2022-05-20 08:57] LABS: Basophils # (A) 0.05 X 10*3/uL (0.00-0.10); Basophils % (A) 0.3 %; Eosinophils # (A) 0.54 X 10*3/uL (0.04-0.35); Eosinophils % (A) 3.6 %; HCT 30.3 % (39.6-50.0); HGB 9.5 g/dL (13.0-17.0); Lymphocytes # (A) 0.85 X 10*3/uL (0.90-5.00); Lymphocytes % (A) 5.6 %; MCH 32.6 pg (27.0-32.0); MCHC 31.4 g/dL (32.0-37.0); MCV 104.1 fL (80.0-97.0); Mean Platelet Volume 10.5 fL (9.5-12.2); Monocytes # (A) 1.17 X 10*3/uL (0.20-1.00); Monocytes % (A) 7.7 %; NRBC Per 100 WBC 0 /100 WBCS (0.0-0.0); Neutrophils # (A) 12.38 X 10*3/uL (1.80-7.70); Neutrophils % (A) 81.8 %; Platelet Count 390 X 10*3/uL (140-440); RBC 2.91 X 10*6/uL (4.40-5.60); WBC 15.14 X 10*3/uL (4.50-10.00)
--- NOTE | 2022-05-20 09:09 | XR ---
EXAMINATION TYPE: XR chest 1V portable DATE OF EXAM: 05/20/2022 COMPARISON: 05/13/2022 HISTORY: Cough TECHNIQUE: Single frontal view of the chest is obtained. FINDINGS: Bilateral airspace disease is greatest within the upper lobes. Small bilateral effusions. Heart size normal. Hypertrophic changes of the spine. Left-sided PICC line noted. IMPRESSION: 1. Bilateral diffuse airspace disease greatest within the upper lobes stable correlate for pneumonia.
[2022-05-20 09:24] LABS: African American GFR (CKD) 100.6 (60.0-200.0); Albumin 1.9 g/dL (3.8-4.9); Albumin/Globulin Ratio 0.79 (1.60-3.17); Anion Gap 5.8 mmol/L (10.00-18.00); BUN/Creat Ratio 35.88 Ratio (12.00-20.00); Blood Urea Nitrogen 28.7 mg/dL (9.0-27.0); Calcium 8.1 mg/dL (8.7-10.3); Carbon Dioxide 27.2 mmol/L (20.0-27.5); Globulin 2.4 g/dL (1.6-3.3); Magnesium 2.2 mg/dL (1.5-2.4); Non-African American GFR(CKD) 86.8 (60.0-200.0); Potassium 3.7 mmol/L (3.5-5.5); Prealbumin 12.2 mg/dL (18.0-42.0); Total Bilirubin 0.3 mg/dL (0.30-1.20); Total Protein 4.3 g/dL (6.2-8.2)
[2022-05-20] MEDS: FORMOTEROL FUMARATE 20 MCG/2 ML NEBU INHALATION SCH (09:24)
[2022-05-20] MEDS: BUDESONIDE 1 MG/2 ML NEBU INHALATION SCH (09:24)
[2022-05-20] MEDS: IPRATROPIUM-ALBUTEROL 3 ML NEB INHALATION SCH ×3 (09:25→16:27)
[2022-05-20 10:31] LABS: Glucose,Whole Blood 137 mg/dL (70-110)
[2022-05-20] MEDS: SODIUM CHLORIDE 0.9% 1,000 ML IV SCH (11:36)
[2022-05-20] MEDS ORDERED: POTASSIUM CHLORIDE 20 MEQ in WATER FOR INJECTION 1 100ML.BAG IVPB ONE (12:00)
--- NOTE | 2022-05-20 12:05 | P.PN ---
Subjective Progress Note Date: 05/20/22 CHIEF COMPLAINT: Dysphagia HISTORY OF PRESENT ILLNESS: Patient is status post PEG tube placement 04/30/22. Patient's tube feedings restarted over the weekend. He is currently a 20 mL per hour. No residual reported. Denies any nausea or vomiting. Denies any abdominal pain. He is having flatus. Afebrile. WBC is 15 Hgb 9.5 platelets 390 12/20/1939 potassium 3.7 creatinine 0.8 Physicial EXAM: ABDOMEN: Soft. Mildly distended. Nontender. PEG tube site clean dry and intact. NEUROLOGIC: Patient lethargic but able to answer questions ASSESSMENT: 1. Dysphagia status post PEG tube placement 2. Severe protein calorie malnutrition 3. History of CVA 4. Possible aspiration pneumonia 5. Dilation of stomach improved 6. Elevated LFTs likely medication induced per GI service 7. Leukocytosis 8. Possible enterocolitis on computed tomography scan PLAN: -Continue tube feedings -Monitor for residuals -Keep head of bed elevated Physician Rocket Engine Tester note has been reviewed by physician. Signing provider agrees with the documented findings, assessment, and plan of care. I have personally seen and examined the patient, reviewed the EMBEDDED DEVELOPER /PAs history, exam and MDM and agree with the assessment and plan as written. Based on total visit time, I have performed more than 50% of the visit. As above: Patient tolerating tube feeds at 20 mL per hour. Family interested in hospice. I will be leaving town. We'll sign off. Please reconsult service if needed. Objective - Vital Signs Vital signs: Vital Signs Temp 98.5 F 05/20/22 07:43 Pulse 72 05/20/22 09:53 Resp 16 05/20/22 07:43 BP 137/74 05/20/22 07:43 Pulse Ox 95 05/20/22 07:43 FiO2 Intake & Output 05/19/22 05/20/22 05/20/22 18:59 06:59 18:59 Intake Total 1280 Output Total 1650 1100 Balance -1650 180 Weight 93 kg Intake: Intake, IV Titration 1280 Amount Mvi, Adult No.4 with Vit 450 K 10 ml Trace (Conc-1Ml/ Dose) 1 ml Potassium Phosphate 15 mmol Sodium Acetate 30 meq Magnesium Sulfate gm 0.5 gm Folic Acid 1 mg Thiamine 100 mg Calcium Gluconate 1 gm In Amino Acid 5%-D15w 1, 000 ml @ 90 mls/hr IV .BY DURATION [facility] Rx#: [id number] Piperacillin-Tazobactam 3 200 .375 gm In Sodium Chloride 0.9% 100 ml @ 25 mls/hr IVPB Q8H NOE Rx#: [id number] Potassium Phosphate 15 630 mmol Sodium Acetate 30 meq Magnesium Sulfate gm 0.5 gm Calcium Gluconate 1 gm In Amino Acid 5%- D15w 1,000 ml @ 90 mls/hr IV .BY DURATION [facility] Rx#: [id number] Output: Urine 1650 1100 Other: Voiding Method External Catheter - Labs CBC & Chem 7: 05/20/22 04:00 05/20/22 04:00 Labs: Abnormal Lab Results - Last 24 Hours (Table) 05/19/22 05/19/22 05/20/22 Range/Units 07:31 16:44 00:35 WBC (4.50-10.00) X 10*3/uL RBC (4.40-5.60) X 10*6/uL Hgb (13.0-17.0) g/dL Hct (39.6-50.0) % MCV (80.0-97.0) fL MCH (27.0-32.0) pg MCHC (32.0-37.0) g/dL RDW (11.5-14.5) % Immature Gran # (0.00-0.04) X 10*3/uL Neutrophils # (1.80-7.70) X 10*3/uL Lymphocytes # (0.90-5.00) X 10*3/uL Monocytes # (0.20-1.00) X 10*3/uL Eosinophils # (0.04-0.35) X 10*3/uL Anion Gap 5.20 L (10.00-18.00) mmol/L BUN 27.3 H (9.0-27.0) mg/dL BUN/Creatinine Ratio 34.13 H (12.00-20.00) Ratio Glucose 119 H (70-110) mg/dL POC Glucose (mg/dL) 141 H 113 H (70-110) mg/dL Calcium 8.0 L (8.7-10.3) mg/dL AST (14-35) U/L ALT (10-49) U/L Alkaline Phosphatase (41-126) U/L Total Protein (6.2-8.2) g/dL Albumin (3.8-4.9) g/dL Albumin/Globulin Ratio (1.60-3.17) g/dL Prealbumin (18.0-42.0) mg/dL 05/20/22 05/20/22 05/20/22 Range/Units 00:51 04:00 04:00 WBC 15.14 H (4.50-10.00) X 10*3/uL RBC 2.91 L (4.40-5.60) X 10*6/uL Hgb 9.5 L (13.0-17.0) g/dL Hct 30.3 L (39.6-50.0) % MCV 104.1 H (80.0-97.0) fL MCH 32.6 H (27.0-32.0) pg MCHC 31.4 L (32.0-37.0) g/dL RDW 15.0 H (11.5-14.5) % Immature Gran # 0.15 H (0.00-0.04) X 10*3/uL Neutrophils # 12.38 H (1.80-7.70) X 10*3/uL Lymphocytes # 0.85 L (0.90-5.00) X 10*3/uL Monocytes # 1.17 H (0.20-1.00) X 10*3/uL Eosinophils # 0.54 H (0.04-0.35) X 10*3/uL Anion Gap 5.80 L (10.00-18.00) mmol/L BUN 28.7 H (9.0-27.0) mg/dL BUN/Creatinine Ratio 35.88 H (12.00-20.00) Ratio Glucose 136 H (70-110) mg/dL POC Glucose (mg/dL) 118 H (70-110) mg/dL Calcium 8.1 L (8.7-10.3) mg/dL AST 130 H (14-35) U/L ALT 262 H (10-49) U/L Alkaline Phosphatase 259 H (41-126) U/L Total Protein 4.3 L (6.2-8.2) g/dL Albumin 1.9 L (3.8-4.9) g/dL Albumin/Globulin Ratio 0.79 L (1.60-3.17) g/dL Prealbumin 12.2 L (18.0-42.0) mg/dL 05/20/22 05/20/22 Range/Units 05:21 10:29 WBC (4.50-10.00) X 10*3/uL RBC (4.40-5.60) X 10*6/uL Hgb (13.0-17.0) g/dL Hct (39.6-50.0) % MCV (80.0-97.0) fL MCH (27.0-32.0) pg MCHC (32.0-37.0) g/dL RDW (11.5-14.5) % Immature Gran # (0.00-0.04) X 10*3/uL Neutrophils # (1.80-7.70) X 10*3/uL Lymphocytes # (0.90-5.00) X 10*3/uL Monocytes # (0.20-1.00) X 10*3/uL Eosinophils # (0.04-0.35) X 10*3/uL Anion Gap (10.00-18.00) mmol/L BUN (9.0-27.0) mg/dL BUN/Creatinine Ratio (12.00-20.00) Ratio Glucose (70-110) mg/dL POC Glucose (mg/dL) 126 H 137 H (70-110) mg/dL Calcium (8.7-10.3) mg/dL AST (14-35) U/L ALT (10-49) U/L Alkaline Phosphatase (41-126) U/L Total Protein (6.2-8.2) g/dL Albumin (3.8-4.9) g/dL Albumin/Globulin Ratio (1.60-3.17) g/dL Prealbumin (18.0-42.0) mg/dL
--- NOTE | 2022-05-20 13:43 | P.DS ---
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 Do you want consulting provider notified?: Yes 04/27/22 14:09 Consult Physician Routine Consulting Provider: Gustabo Howard Consult Reason/Comments: depression/loss of appetite Do you want consulting provider notified?: Yes 05/01/22 11:50 Consult Physician Routine Consulting Provider: Gerson Adan Consult Reason/Comments: Right heel Ulcer Do you want consulting provider notified?: Yes 05/03/22 11:57 Consult Physician Routine Consulting Provider: Gerson Adan Consult Reason/Comments: superficial venous thrombosis within the cephalic vein mid biceps & upper Do you want consulting provider notified?: Yes 05/03/22 12:05 Consult Physician Routine Consulting Provider: Annalisa Crain Consult Reason/Comments: presumptive mrsa right heel,superficial venous thrombosis Do you want consulting provider notified?: Yes 05/03/22 12:28 Consult Physician Routine Consulting Provider: Kb Pathak Consult Reason/Comments: recurrent DVT despite xarelto Do you want consulting provider notified?: Yes 05/05/22 04:07 Consult Physician Urgent Consulting Provider: Lino Dean Consult Reason/Comments: not tolerating Tube feeding Do you want consulting provider notified?: Yes 05/05/22 04:36 Consult Physician Urgent Consulting Provider: Nilda Manuel Consult Reason/Comments: Shortness of breath Do you want consulting provider notified?: Yes 05/13/22 13:16 Consult Physician Urgent Consulting Provider: Monica Post Consult Reason/Comments: Progressive elevation of liver enzyme with hepatitis unknown etiology Do you want consulting provider notified?: Yes 05/15/22 15:09 Consult Physician Routine Consulting Provider: Hudson Vance Consult Reason/Comments: amiodorone dosing/elevated LFT's Do you want consulting provider notified?: Yes Primary care physician: Vamshi Matamoros Discharge summary I dictated to service 05/20/[address] Matamoros Admission diagnoses: #1 progressive severe neurological inability associated with dysphagia, inability to walk, weight loss 20-30 pound by information from [facility] #2 dysphonia was questionable or probability of paralysis of the vocal cord etiology is unknown #3 esophageal motility abnormalities with the need of gastroenterology to evaluate the patient and if could not eat may need PEG tube insertion #4 atrial fibrillation was controlled ventricular response. 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 #5 recurrent aspiration pneumonia with the associated hypoxemia antibiotic was continued with the changes her Dr. Crain infectious disease. #6 PEG tube placement for enteral feeding with complicated with ileus and held the feeding uncontrolled the bowel movement start #7 severe protein calorie deficiency with the patient albumin 5 and severe protein and albumin due to not eating or prolonged time #8 intravenous nutritional support with the TPN and Intralipid through picc line however PICC line pulled out accidentally by the patient and repeat placement of a PICC line for the second time with double lumen currently date for the antibiotic and TPN. With complicated with edema of the left arm and elbow secondary to extravasation. #9 IV was placed in the right arm area subsequently patient developed erythema and redness and edema, ultrasound obtained found to have superficial fascial vein thrombosis patient already on Xarelto and seen by the vascular surgeon no added treatment #10 blade TL debridement done by Dr. 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 #12 hypoxemia necessitating oxygen supplementation and antibiotic for the aspiration pneumonia. #13 oropharyngeal tenodesis and treated with Diflucan. #14 mild depression #15 resistant cough associated with the vocal cords. Consult in physician: #1 cardiology #2 infectious disease #3 vascular surgeon #4 gastroenterology #5 general surgery #6 psychiatry #7 neurologist #8 pulmonary and critical care. Procedures: Echocardiogram Debridement of the left and the right heel PICC line placement 2 left arm PEG tube placement. Abdominal computed tomography scan. [id number] examination and discussion with his Adriana Braga through the following the patient discussion with end-of-life and the family and the patient requested hospice house, patient accepted into hospice house will be discharged today with the expectation of grave results and deficits On exam: Patient was conscious alert at this time oriented and he requested hospice as well with the very whispering voice His vital sign on discharge temperature 98.5 F oral and pulse 73 beats per minutes regular respiratory 16/m and he still has and the blood pressure 137/74 with a mean 95 on room air. The head was normocephalic and atraumatic pupil was equal reactive Oropharynx he has natural teeth and he had dry dryness of the mouth Neck was supple no JVD no thyromegaly no lymphadenopathy trachea midline. Chest improvement and irrigation of the lung with the chest x-ray underlying atelectasis and improvement of aspiration pneumonia. Heart regular sinus rhythm with a history of atrial flutter not present at this time Abdomen soft positive bowel sounds and able to tolerate the 20 mL of enteral feeding with through the PEG tube Extremities: The right elbow edema still improving, left elbow edema with marketed improvement and it does have the PICC line which is infusing. He has decrease movement with the right hemiplegia secondary to thin CVA. And he is unable to ambulate with the bilateral hemispheric CVA. Psychiatry stable Neurologically no new event Assessment and discussion: Patient condition is guarded and expected to with the current family decision no farther treatment and to go to hospice house as I did discuss it today with his Adriana and she request no feeding through PEG tube no TPN however the line PEG tube line and the PICC line can be taken over office in the hospice house will be left to go with it at this time as her wishes no antibiotic no farther treatment however he will be having the external catheter for urination medication and no anticoagulation and he is not to be resuscitated as he is no ". Patient Condition at Discharge: Stable Plan - Discharge Summary New Discharge Prescriptions: Discontinued Amiodarone [Cordarone] 200 mg PO DAILY@0800 Aspirin EC [Ecotrin Low Dose] 81 mg PO DAILY@1200 Rivaroxaban [Xarelto] 15 mg PO DAILY@0800 Atorvastatin [Lipitor] 80 mg PO HS@2100 Cholecalciferol (Vitamin D3) [Vitamin D3 (3000 Iu)] 75 mcg PO DAILY@1700 Solifenacin Succinate 10 mg PO DAILY@0800 Ondansetron [Zofran] 4 mg PO Q8HR PRN PRN Reason: Nausea And Vomiting bisacodyL [Dulcolax] 10 mg RECTAL DAILY PRN PRN Reason: Constipation Ciprofloxacin HCl [Cipro] 500 mg PO BID@0800,2100 Melatonin 1 mg PO HS@2100 Tamsulosin HCl [Flomax] 0.4 mg PO DAILY@0800 lisinopriL [Zestril] 10 mg PO DAILY@0800 Na Phos,M-B/Na Phos,Di-Ba [Fleet Adult] 133 ml RECTAL DAILY PRN PRN Reason: Constipation Magnesium Hydroxide [Milk of Magnesia Concentrate] 7,200 mg PO Q48H PRN PRN Reason: Constipation HYDROcodone/APAP 5-325MG [[place] 5-325] 1 tab PO Q6HR PRN PRN Reason: Pain Ensure Enlive 237 ml PO TID@0800,1200,1700 Sennosides [Senokot] 17.2 mg PO HS@2100 polyethylene glycoL 3350 [Miralax] 17 gm PO DAILY@0800 Cyanocobalamin [Vitamin B-12] 1,000 mcg PO DAILY@1700 Follow up Appointment(s)/Referral(s): Vamshi Matamoros MD [Primary Care Provider] - 1-2 days Discharge Disposition: HOME WITH HOSPICE Care Plan Goals (MU): Patient and and wants to go to hospice house and patient was accepted and the hospice house and requested to be discontinued hold treatment including TPN, 50 of feeding, antibiotic, and anticoagulant, and all other medication with the expectation or patient progressed to .
[2022-05-20] MEDS: THIAMINE 100 MG/ML 2 ML VIAL IVP SCH (13:53)
[2022-05-20 14:44] VITALS: BP 139/69; PULSE 75
[2022-05-20] MEDS: CYANOCOBALAMIN 500 MCG TAB PO SCH (15:20)
[2022-05-20] MEDS: CHOLECALCIFEROL 25 MCG (1000 IU) TABLET PO SCH (15:20)
[2022-05-20] MEDS: FAT EMULSION 20% 250 ML IV SCH (15:21)
[2022-05-20] MEDS: RIVAROXABAN 20 MG TAB PO SCH (15:21)
[2022-05-20 15:28] VITALS: BMI 25.6
[2022-05-20 15:47] LABS: Glucose,Whole Blood 87 mg/dL (70-110)
--- NOTE | 2022-05-22 10:07 | CDI ---
Documentation Clarification Form Date: From: Idalia Armando Phone: Admit Date: 04/24/2022 05:55:00 PM Patient Name: Sang Braga Visit Number: [id number] Discharge Date: 05/20/2022 05:15:00 PM ATTENTION: The Clinical Documentation Specialists (CDI) and [facility] Coding Staff appreciate your assistance in clarifying documentation. Please respond to the clarification below the line at the bottom and electronically sign. The CDI & [facility] Coding staff will review the response and follow-up if needed. Please note: Queries are made part of the Legal Health Record. If you have any questions, please contact the author of this message via ITS. Dr. Gerson Adan, A right heel pressure ulcer is documented in your consult on 05/01. Additional clarification regarding the stage of the pressure ulcer is requested. History/Risk Factors: bihemispheric CVA with the embolic etiology, PAF, severe PCM, aspiration pneumonia, acute hepatitis, hypnatremia, right hemiparesis, acute superficial veins of RUE Clinical Indicators: Right infected foot heel pressure ulcer and also on the right foot lateral aspect there is scab formation. Location: right heel Wound description: Vascular femorals are 1+ bilateral patient has a infected right heel wound and there is scab formation the lateral aspect of the right foot. Wound care: Stage III 05/02, Stage IV 05/20 Treatment: Debridement Please clarify the stage of pressure ulcer [insert location], if known: [ X ] Stage 3 Pressure Ulcer Right Heel, POA [ ] Stage 4 Pressure Ulcer Right Heel, Not POA [ ] Other condition, please specify [ ] Unable to determine Clinical Definitions: Stage 1 Pressure Ulcer: intact skin, non-blanching redness of local area Stage 2 Pressure Ulcer: Partial thickness, loss of dermis, pink wound bed Stage 3 Pressure Ulcer: Full thickness tissue loss Stage 4 Pressure Ulcer: Full thickness tissue loss with exposed bone, tendon, or muscle. Unstageable pressure ulcer: Full thickness tissue loss in which the base of the ulcer is covered by slough (yellow, linda, camejo, green or brown) and/or eschar (linda, brown or black) in the wound bed. MTDD
== END 2022-05-20 17:15 | disposition hospice, inpatient (51) | DRG 40 ==
LOC: EC 15:52 → 4SSUR 17:55
PROVIDERS: ADMIT Internal Medicine; ATTEND Internal Medicine
PROC: 0DH63UZ Insertion of Feeding Device into Stomach, Percutaneous Approach (ICD-10-PCS; 2022-04-30)
PROC: 3E0G76Z Introduction of Nutritional Substance into Upper GI, Via Natural or Artificial Opening (ICD-10-PCS; 2022-04-30)
PROC: 0JBQ0ZZ Excision of Right Foot Subcutaneous Tissue and Fascia, Open Approach (ICD-10-PCS; principal; 2022-05-03)
PROC: 02HV33Z Insertion of Infusion Device into Superior Vena Cava, Percutaneous Approach (ICD-10-PCS; 2022-05-07)
PROC: 02HV33Z Insertion of Infusion Device into Superior Vena Cava, Percutaneous Approach (ICD-10-PCS; 2022-05-09)
PROC: 3E0436Z Introduction of Nutritional Substance into Central Vein, Percutaneous Approach (ICD-10-PCS; 2022-05-09)
DX: I63.40 Cerebral infarction due to embolism of unspecified cerebral artery (principal); E43 Unspecified severe protein-calorie malnutrition; L89.613 Pressure ulcer of right heel, stage 3; J69.0 Pneumonitis due to inhalation of food and vomit; K72.00 Acute and subacute hepatic failure without coma; G81.91 Hemiplegia, unspecified affecting right dominant side; E87.1 Hypo-osmolality and hyponatremia; I82.611 Acute embolism and thrombosis of superficial veins of right upper extremity; J98.11 Atelectasis; K56.7 Ileus, unspecified; J38.00 Paralysis of vocal cords and larynx, unspecified; E88.09 Other disorders of plasma-protein metabolism, not elsewhere classified; E77.8 Other disorders of glycoprotein metabolism; E86.0 Dehydration; I11.0 Hypertensive heart disease with heart failure; I50.9 Heart failure, unspecified; R62.7 Adult failure to thrive; R13.10 Dysphagia, unspecified; I48.0 Paroxysmal atrial fibrillation; E11.9 Type 2 diabetes mellitus without complications; J44.9 Chronic obstructive pulmonary disease, unspecified; Z66 Do not resuscitate; Z51.5 Encounter for palliative care; Z20.822 Contact with and (suspected) exposure to COVID-19; I69.328 Other speech and language deficits following cerebral infarction; Z68.24 Body mass index [BMI] 24.0-24.9, adult; F43.23 Adjustment disorder with mixed anxiety and depressed mood; I25.10 Atherosclerotic heart disease of native coronary artery without angina pectoris; I08.0 Rheumatic disorders of both mitral and aortic valves; D64.9 Anemia, unspecified; K59.00 Constipation, unspecified; E78.5 Hyperlipidemia, unspecified; B95.62 Methicillin resistant Staphylococcus aureus infection as the cause of diseases classified elsewhere; G47.30 Sleep apnea, unspecified; R32 Unspecified urinary incontinence; M89.9 Disorder of bone, unspecified; N28.1 Cyst of kidney, acquired; R09.02 Hypoxemia; R47.1 Dysarthria and anarthria; R49.0 Dysphonia; R63.30 Feeding difficulties, unspecified; K80.20 Calculus of gallbladder without cholecystitis without obstruction; Z79.82 Long term (current) use of aspirin; Z79.01 Long term (current) use of anticoagulants; Z79.899 Other long term (current) drug therapy; Z87.891 Personal history of nicotine dependence; Z85.46 Personal history of malignant neoplasm of prostate; Z92.3 Personal history of irradiation; Z87.442 Personal history of urinary calculi; Z95.5 Presence of coronary angioplasty implant and graft; Z96.641 Presence of right artificial hip joint; Z91.81 History of falling; Z87.440 Personal history of urinary (tract) infections; Z86.718 Personal history of other venous thrombosis and embolism; Z71.3 Dietary counseling and surveillance
CPT/HCPCS: 36415; 36573; 43246; 70553; 71045; 71046; 74018; 74019; 74177; 78306; 80048; 80053; 80061; 80074; 80076; 80202; 81003; 82247; 82248; 82306; 82330; 82565; 82607; 82728; 82746; 82747; 83036; 83519; 83540; 83550; 83735; 83880; 83883; 83921; 83930; 83935; 84075; 84100; 84134; 84145; 84153; 84165; 84300; 84425; 84450; 84460; 84478; 84484; 85025; 85610; 85652; 86140; 86334; 87040; 87070; 87075; 87077; 87102; 87186; 87205; 87635; 93308; 94640; 94760; 99285